=== PATIENT | female | born 1955 | race Caucasian/White ===

== ENCOUNTER → 2021-01-21 | Outpatient (CLI) | payer MEDICARE, BC ==
--- NOTE | 2021-01-21 10:20 | XR ---
EXAMINATION TYPE: XR knee complete RT DATE OF EXAM: 01/21/2021 CLINICAL HISTORY: Right knee pain TECHNIQUE: Three views of the right knee are obtained. COMPARISON: None. FINDINGS: There is no acute fracture/dislocation evident in right knee. There is osteophytosis of t he patellofemoral compartment. There is diffuse, qualitative osteopenia. IMPRESSION: There is no acute fracture or dislocation in the right knee. There is osteophytosis of the patellofemoral compartment. There is diffuse, qualitative osteopenia.
== END | disposition home or self-care (01) ==
LOC: RADXRYALE 09:54
PROVIDERS: ATTEND Family Medicine
DX: M85.861 Other specified disorders of bone density and structure, right lower leg (principal)

== ENCOUNTER 2021-02-28 14:12 | Inpatient (IN) | payer MEDICARE, BC ==
[2021-02-28 16:56] LABS: Anisocytosis Slight; Basophils % (A) 1 %; Eosinophils # (A) 0.1 k/uL (0-0.7); Eosinophils % (A) 1 %; HCT 27.6 % (34.0-46.0); HGB 8.5 gm/dL (11.4-16.0); Hypochromasia Moderate; Lymphocytes # (A) 0.8 k/uL (1.0-4.8); Lymphocytes % (A) 11 %; MCH 31.1 pg (25.0-35.0); MCHC 30.9 g/dL (31.0-37.0); MCV 100.7 fL (80.0-100.0); Macrocytosis Slight; Mean Platelet Volume 8.6; Monocytes # (A) 0.3 k/uL (0-1.0); Monocytes % (A) 4 %; Neutrophils # (A) 5.4 k/uL (1.3-7.7); Neutrophils % (A) 81 %; Platelet Count 174 k/uL (150-450); RBC 2.74 m/uL (3.80-5.40); RDW 16.2 % (11.5-15.5); WBC 6.7 k/uL (3.8-10.6)
[2021-02-28 17:02] LABS: Appearance,Urine Cloudy (Clear); Bacteria,Urine Many /hpf; Bilirubin,Urine Negative (Negative); Blood,Urine Large (Negative); Color,Urine Light Yellow; Glucose,Urine (UA) Negative (Negative); Hyaline Casts,Urine 5 /lpf (0-2); Ketones,Urine 1+ (Negative); Leukocyte Esterase,Urine Large (Negative); Mucus,Urine Rare /hpf; Nitrite,Urine Positive (Negative); PH, Urine 5.5 (5.0-8.0); Protein,Urine 2+ (Negative); RBC,Urine 135 /hpf (0-5); Specific Gravity,Urine 1.012 (1.001-1.035); Urobilinogen,Urine <2.0 mg/dL (<2.0); WBC,Urine 158 /hpf (0-5)
[2021-02-28 17:07] LABS: Albumin 4.2 g/dL (3.5-5.0); Calcium 9.2 mg/dL (8.4-10.2); Potassium 5.8 mmol/L (3.5-5.1); Total Bilirubin 0.3 mg/dL (0.2-1.3); Total Protein 6.9 g/dL (6.3-8.2)
[2021-02-28] MEDS ORDERED: SODIUM CHLORIDE 0.9% 1,000 ML IV ONE (18:36)
[2021-02-28] MEDS ORDERED: NALOXONE 0.4 MG/ML 1 ML VIAL IV PRN (18:49)
[2021-02-28] MEDS ORDERED: DEXTROSE 50% SYRINGE 50 ML IVP STA (18:53)
[2021-02-28] MEDS ORDERED: CALCIUM GLUCONATE 1 GM in SODIUM CHLORIDE 0.9% 100 ML IVPB ONE (18:53)
[2021-02-28] MEDS ORDERED: INSULIN REGULAR 100 UNIT/ML VIAL (IV) IV ONE (18:53)
--- NOTE | 2021-02-28 18:56 | ED ---
General Adult HPI - General Chief complaint: Vaginal Bleeding Stated complaint: vaginal bleeding Time Seen by Provider: 02/28/21 17:30 Source: patient, RN notes reviewed, old records reviewed Mode of arrival: ambulatory Limitations: no limitations - History of Present Illness Initial comments: I evaluated the patient when she was placed in a room. Workup was started by triage nursing staff. Patient is a 65-year-old female with past medical history remarkable for diabetes, hypertension who presents emergency Department complaining of a 3 month history of abnormal uterine bleeding. She states that this has been ongoing for last 3 months. She states she noticed a slight uptake in the bleeding the last few days. She denies any lightheadedness, chest pain, shortness breath, dysuria, hematuria, abdominal pain, nausea, vomiting, diarrhea. She otherwise has no acute this time. Denies any fatigue or weakness. She presents in search of evaluation as well as a referral for an SENIOR NATIONAL ACCOUNT MANAGER follow-up for her dysfunction uterine bleeding, which she has not followed up with yet. She states she does have a history of some mildly worsening kidney function. She otherwise has no acute complaints at this time. She denies any history of uterine fibroids were abnormal uterine bleeding prior to the last 2 months. Patient denies any concern for STDs and denies any vaginal dischargeother than the abdomen bleeding. - Related Data Home Medications Medication Instructions Recorded Confirmed Allopurinol [Zyloprim] 100 mg PO DAILY 12/16/20 02/28/21 Ascorbic Acid [Vitamin C] 500 mg PO DAILY 12/16/20 02/28/21 Carvedilol [Coreg] 25 mg PO BID 12/16/20 02/28/21 Cholecalciferol [Vitamin D3 (25 75 mcg PO DAILY 12/16/20 02/28/21 Mcg = 1000 Iu)] Ferrous Sulfate [Iron (65 MG 325 mg PO TID 12/16/20 02/28/21 Elemental)] Furosemide [Lasix] 20 mg PO BID@0900,1600 12/16/20 02/28/21 Hyoscyamine Sulfate [Levsin] 0.125 mg PO TID 12/16/20 02/28/21 Losartan [Cozaar] 50 mg PO DAILY 12/16/20 02/28/21 Pantoprazole Sodium 40 mg PO DAILY 12/16/20 02/28/21 Simvastatin [Zocor] 20 mg PO HS 12/16/20 02/28/21 Spironolactone 25 mg PO DAILY 12/16/20 02/28/21 sitaGLIPtin [Januvia] 100 mg PO DAILY 12/16/20 02/28/21 Multivitamins, Thera [Multivitamin 1 tab PO DAILY 02/28/21 02/28/21 (formulary)] Pioglitazone [Actos] 45 mg PO DAILY 02/28/21 02/28/21 Repaglinide [Prandin] 2 mg PO TID 02/28/21 02/28/21 Allergies Allergy/AdvReac Type Severity Reaction Status Date / Time No Known Allergies Allergy Verified 02/28/21 18:33 Review of Systems ROS Statement: Those systems with pertinent positive or pertinent negative responses have been documented in the HPI. Review of Systems: CONST: Denies fever EYES: Denies blurry vision ENT: Denies nasal congestion C/V: Denies Chest pain RESP: Denies shortness of breath GI: Denies abdominal pain : Endorses vaginal bleeding. SKIN: Denies rash. MSK: Denies joint pain. NEURO: Denies headache ROS Other: All systems not noted in ROS Statement are negative. Past Medical History Past Medical History: Diabetes Mellitus, Hypertension History of Any Multi-Drug Resistant Organisms: None Reported Past Surgical History: No Surgical Hx Reported Past Anesthesia/Blood Transfusion Reactions: No Reported Reaction Past Psychological History: Anxiety, Depression Smoking Status: Never smoker Past Alcohol Use History: None Reported Past Drug Use History: None Reported General Exam - General Exam Comments Initial Comments: General: Appears in no acute distress. HEAD: Normal with no signs of head trauma. EYES: PERRLA, EOMI, conjunctiva normal, no discharge. ENT: Hearing grossly intact, normal oropharynx. RESPIRATORY: Clear breath sounds bilaterally. No wheezes, rales, or rhonchi. C/V: Regular rate and rhythm. S1 and S2 auscultated, no edema, peripheral pulses 2+ and intact throughout ABD: Abd is soft, nontender, nondistended EXT: Normal range of motion, no obvious deformity SKIN: No rashes or lesions observed on exposed skin. NEURO: Alert and oriented 4. No focal sensory strength deficits. Patient is able to ambulate without difficulty. Limitations: no limitations Course Vital Signs 02/28/21 02/28/21 16:13 20:37 Temperature 98.0 F Pulse Rate 69 66 Respiratory 18 18 Rate Blood Pressure 130/79 134/64 O2 Sat by Pulse 96 97 Oximetry Medical Decision Making - Medical Decision Making Based on the patient's presentation and physical exam, I'm concerned for her abnormal uterine bleeding at this time. Workup was started which consisted of abdominal laboratory studies by walk in triage. This is remarkable for a macrocytic anemia with a hemoglobin of 8.5, with a history of macrocytic anemia. This appears to be her hemoglobin level that she is seen in the past, particularly within the last year. Patient's electrolytes are abnormal. She has a mild decrease in bicarbonate 18 with 79. Patient has an AK eye on CK D with a creatinine of 2.45 and BUN of 80. Recent creatinine from a few months ago was 2.0. Patient is hyperkalemic. EKG was ordered and did not reveal any signs of acute ischemia or signs of hyperkalemia. Patient's glucose is 148. Urinalysis is remarkable and suspicious for acute urinary tract infection, with 158 WBCs, many bacteria, as well as positive nitrites and large amount of leukocyte esterase. I did discuss the results of her laboratory studies with the patient. I explained that I did not believe she is having an excessive amount of bleeding as her hemoglobin does appear to be baseline for her without any signs or symptoms of anemia at this time. I'm concerned about her renal function as well as her urinary tract infection. Her hyperkalemia, while high, is likely related to her AK I and she has no EKG changes. She will be given insulin and D50 here in the department. She is not requiring calcium at this time as there is no EKG changes. For the patient's UTI, she will be given Rocephin daily. She'll be given a 1 L fluid bolus in addition to being started on a normal saline drip. Patient was in agreement this plan. I discussed with the patient that her vaginal bleeding can be better evaluated with ultrasound. She did consent to obtain ultrasound. Results were not back by attending the patient was admitted to the hospital. I did discuss with the patient I would like her admitted to the hospital. She was in agreement this plan. I spoke with the admitting physician Leena GREY, who accepted the patient. I did consult SENIOR NATIONAL ACCOUNT MANAGER as well to evaluate in the morning. Patient was therefore admitted in serious condition. Reevaluation the chart after the patient was admitted, the results of the ultrasound returned and were remarkable for essential increased echogenicity of the uterus with a dilated endometrial cavity with solid material. Computed tomography scan or MRI would be helpful. Ovaries were not seen and there is no adnexal mass. CT abdomen and pelvis without contrast was placed by myself, and results can be followed up by the admitting team. - Lab Data Result diagrams: 02/28/21 16:49 02/28/21 16:49 Lab Results 02/28/21 02/28/21 02/28/21 Range/Units 16:40 16:46 16:49 WBC 6.7 (3.8-10.6) k/uL RBC 2.74 L (3.80-5.40) m/uL Hgb 8.5 L (11.4-16.0) gm/dL Hct 27.6 L (34.0-46.0) % MCV 100.7 H (80.0-100.0) fL MCH 31.1 (25.0-35.0) pg MCHC 30.9 L (31.0-37.0) g/dL RDW 16.2 H (11.5-15.5) % Plt Count 174 (150-450) k/uL MPV 8.6 Neutrophils % 81 % Lymphocytes % 11 % Monocytes % 4 % Eosinophils % 1 % Basophils % 1 % Neutrophils # 5.4 (1.3-7.7) k/uL Lymphocytes # 0.8 L (1.0-4.8) k/uL Monocytes # 0.3 (0-1.0) k/uL Eosinophils # 0.1 (0-0.7) k/uL Basophils # 0.0 (0-0.2) k/uL Hypochromasia Moderate Anisocytosis Slight Macrocytosis Slight Sodium (137-145) mmol/L Potassium (3.5-5.1) mmol/L Chloride (98-107) mmol/L Carbon Dioxide (22-30) mmol/L Anion Gap mmol/L BUN (7-17) mg/dL Creatinine (0.52-1.04) mg/dL Est GFR (CKD-EPI)AfAm (>60 ml/min/1.73 sqM) Est GFR (CKD-EPI)NonAf (>60 ml/min/1.73 sqM) Glucose (74-99) mg/dL Calcium (8.4-10.2) mg/dL Total Bilirubin (0.2-1.3) mg/dL AST (14-36) U/L ALT (4-34) U/L Alkaline Phosphatase (38-126) U/L Total Protein (6.3-8.2) g/dL Albumin (3.5-5.0) g/dL Urine Color Urine Appearance (Clear) Urine pH (5.0-8.0) Ur Specific [place] (1.001-1.035) Urine Protein (Negative) Urine Glucose (UA) (Negative) Urine Ketones (Negative) Urine Blood (Negative) Urine Nitrite (Negative) Urine Bilirubin (Negative) Urine Urobilinogen (<2.0) mg/dL Ur Leukocyte Esterase (Negative) Urine RBC (0-5) /hpf Urine WBC (0-5) /hpf Urine WBC Clumps (None) /hpf Urine Bacteria (None) /hpf Hyaline Casts (0-2) /lpf Urine Mucus (None) /hpf Blood Type A Positive Blood Type Confirm A Positive Blood Type Recheck No Previous Record Bld Type Recheck Status CABO Indicated Antibody Screen NEGATIVE Spec Expiration Date 03/03/2021 - 234502/28/21 02/28/21 Range/Units 16:49 16:49 WBC (3.8-10.6) k/uL RBC (3.80-5.40) m/uL Hgb (11.4-16.0) gm/dL Hct (34.0-46.0) % MCV (80.0-100.0) fL MCH (25.0-35.0) pg MCHC (31.0-37.0) g/dL RDW (11.5-15.5) % Plt Count (150-450) k/uL MPV Neutrophils % % Lymphocytes % % Monocytes % % Eosinophils % % Basophils % % Neutrophils # (1.3-7.7) k/uL Lymphocytes # (1.0-4.8) k/uL Monocytes # (0-1.0) k/uL Eosinophils # (0-0.7) k/uL Basophils # (0-0.2) k/uL Hypochromasia Anisocytosis Macrocytosis Sodium 137 (137-145) mmol/L Potassium 5.8 H (3.5-5.1) mmol/L Chloride 106 (98-107) mmol/L Carbon Dioxide 18 L (22-30) mmol/L Anion Gap 13 mmol/L BUN 80 H (7-17) mg/dL Creatinine 2.45 H (0.52-1.04) mg/dL Est GFR (CKD-EPI)AfAm 23 (>60 ml/min/1.73 sqM) Est GFR (CKD-EPI)NonAf 20 (>60 ml/min/1.73 sqM) Glucose 148 H (74-99) mg/dL Calcium 9.2 (8.4-10.2) mg/dL Total Bilirubin 0.3 (0.2-1.3) mg/dL AST 23 (14-36) U/L ALT 16 (4-34) U/L Alkaline Phosphatase 121 (38-126) U/L Total Protein 6.9 (6.3-8.2) g/dL Albumin 4.2 (3.5-5.0) g/dL Urine Color Light Yellow Urine Appearance Cloudy H (Clear) Urine pH 5.5 (5.0-8.0) Ur Specific [place] 1.012 (1.001-1.035) Urine Protein 2+ H (Negative) Urine Glucose (UA) Negative (Negative) Urine Ketones 1+ H (Negative) Urine Blood Large H (Negative) Urine Nitrite Positive H (Negative) Urine Bilirubin Negative (Negative) Urine Urobilinogen <2.0 (<2.0) mg/dL Ur Leukocyte Esterase Large H (Negative) Urine RBC 135 H (0-5) /hpf Urine WBC 158 H (0-5) /hpf Urine WBC Clumps Moderate H (None) /hpf Urine Bacteria Many H (None) /hpf Hyaline Casts 5 H (0-2) /lpf Urine Mucus Rare H (None) /hpf Blood Type Blood Type Confirm Blood Type Recheck Bld Type Recheck Status Antibody Screen Spec Expiration Date - EKG Data -: EKG Interpreted by Me EKG Comments: 12-lead Electrocardiogram Interpretation Note EKG was reviewed and interpreted by myself. 12-lead ECG performed at 1850 is interpreted by me as revealing normal sinus rhythm at a rate of 71 beats per minute. [place] is normal. NH interval is 174 ms, QRS duration is 82 ms, QTc is 469 ms.. There were no ST or T wave abnormalities to suggest myocardial ischemia or injury. R wave progression across the precordium was satisfactory. By my interpretation this EKG is non-diagnostic for acute ischemia. There are no signs of hyperkalemia as the T waves do not appear peaked and the intervals appear within normal limits. Disposition Clinical Impression: Dysfunctional uterine bleeding, Chronic anemia, Hyperkalemia, CYNDEE (acute kidney injury), Macrocytic anemia, History of diabetes mellitus, UTI (urinary tract infection) Disposition: ADMITTED IP TO THIS HOSP Condition: Serious
[2021-02-28] MEDS ORDERED: cefTRIAXone IN SWFI 1,000 MG/10 ML SYRINGE IVP SCH (19:15)
[2021-02-28 19:33] LABS: Prothrombin Time 10.8 sec (9.0-12.0)
[2021-02-28] MEDS: SODIUM CHLORIDE 0.9% 1,000 ML IV SCH (19:33)
--- NOTE | 2021-02-28 19:58 | US ---
EXAMINATION TYPE: US transvaginal DATE OF EXAM: 02/28/2021 COMPARISON: NONE CLINICAL HISTORY: abnormal uterine bleeding. Limited exam TECHNIQUE: . Transabdominal sonographic images of the pelvis were acquired. Transvaginal sonographi c images were medically necessary to better assess the following anatomy: Uterus Date of LMP: Age 48-50ish EXAM MEASUREMENTS: Uterus: 9.4 x 4.9 x 7.0 Endometrial Stripe: Unable to distinguish with certainty Right Ovary: Not visualized Left Ovary: Not visualized 1. Uterus: Anteverted Diffusely heterogeneous 2. Endometrium: Unable to distinguish with certainty 3. Right Ovary: Not visualized 4. Left Ovary: Not visualized 5. Bilateral Adnexa: wnl as visualized 6. Posterior cul-de-sac: wnl IMPRESSION: There is central increased echogenicity in the uterus that could relate to a markedly dilated endomet rial cavity with solid material. Follow-up is recommended. CT scan or MR scan would BE helpful for fu rther evaluation if clinically indicated. Ovaries not seen. No adnexal mass.
[2021-02-28] MEDS: ATORVASTATIN 10 MG TAB PO SCH (21:38)
[2021-02-28] MEDS: carvediloL 12.5 MG TAB PO SCH (21:38)
[2021-02-28] MEDS: FERROUS SULFATE 325 MG TAB PO SCH (21:38)
[2021-02-28] MEDS: REPAGLINIDE 1 MG TAB PO SCH (22:11)
--- NOTE | 2021-02-28 22:26 | CT ---
EXAMINATION TYPE: CT abdomen pelvis wo con DATE OF EXAM: 02/28/2021 COMPARISON: None HISTORY: Gross hematuria. CT DLP: 1202.7 mGycm Automated exposure control for dose reduction was used. Images obtained from the diaphragm to the floor the pelvis with no contrast. There is some mild atelectasis left lung base. There are small bilateral pleural effusions. Heart is enlarged. There is a small pericardial effusion. Liver spleen stomach appear intact. The bile ducts are not dilated. There is no pancreatic mass. Gall bladder appears normal. There is no adrenal mass. Kidneys have normal size. There is no hydronephrosis. The ureters are not d ilated. There is no retroperitoneal adenopathy. Bladder distends smoothly. There is some air in the b ladder consistent with catheterization. There is no inguinal hernia. I see no pelvic mass. Uterus is anteverted. There is subcutaneous edema around the abdomen. There is some mild mesenteric fat strandi ng in the abdomen. There is stranding in the paracolic gutters. Lumbar vertebra appear intact. There is no compression fracture. There is mild disc space narrowing. The bony pelvis is intact. The hip joints are intact. There is some calcifications in the right later al abdomen in uncertain location. Appendix not clearly seen. Appendicolith not excluded. IMPRESSION: Subcutaneous edema around the abdomen. There is abdominal mesenteric edema and fat stranding. No evid ence of a renal mass or obstruction. Ureters are not dilated. Exam limited by lack of contrast. No si gn of a ureteral calculus. No evidence of a bladder mass. Cardiomegaly with pleural effusions and pericardial effusion. Fluid seen in the abdomen could relate to some chronic congestive heart failure. Calcifications in the lateral right abdomen. Appendicolith not excluded. Appendix not clearly seen.
[2021-03-01 06:21] LABS: Basophils % (A) 1 %; Eosinophils # (A) 0.1 k/uL (0-0.7); Eosinophils % (A) 2 %; HCT 24.9 % (34.0-46.0); HGB 7.6 gm/dL (11.4-16.0); Hypochromasia Moderate; Lymphocytes # (A) 0.7 k/uL (1.0-4.8); Lymphocytes % (A) 14 %; MCH 31.3 pg (25.0-35.0); MCHC 30.7 g/dL (31.0-37.0); MCV 102.1 fL (80.0-100.0); Macrocytosis Slight; Mean Platelet Volume 8.7; Monocytes # (A) 0.3 k/uL (0-1.0); Monocytes % (A) 7 %; Neutrophils # (A) 3.6 k/uL (1.3-7.7); Neutrophils % (A) 74 %; Platelet Count 148 k/uL (150-450); RBC 2.44 m/uL (3.80-5.40); WBC 4.9 k/uL (3.8-10.6)
[2021-03-01] MEDS: REPAGLINIDE 1 MG TAB PO SCH ×3 (08:17→21:26)
[2021-03-01] MEDS: FUROSEMIDE 20 MG TAB PO SCH ×2 (08:17→15:19)
[2021-03-01] MEDS: FERROUS SULFATE 325 MG TAB PO SCH ×3 (08:17→21:25)
[2021-03-01] MEDS: carvediloL 12.5 MG TAB PO SCH ×2 (08:17→21:25)
[2021-03-01] MEDS: LOSARTAN 50 MG TAB PO SCH (08:17)
[2021-03-01] MEDS: SPIRONOLACTONE 25 MG TAB PO SCH (08:17)
[2021-03-01] MEDS: PIOGLITAZONE 45 MG TAB PO SCH (08:17)
[2021-03-01] MEDS: LINAGLIPTIN 5 MG TABLET PO SCH (08:17)
[2021-03-01] MEDS: SODIUM CHLORIDE 0.9% 1,000 ML IV SCH ×2 (08:18→16:07)
[2021-03-01] MEDS: PANTOPRAZOLE 40 MG TABLET PO SCH (08:18)
[2021-03-01 11:53] LABS: Glucose,Whole Blood 154 mg/dL (75-99)
[2021-03-01 12:05] LABS: BUN/Creat Ratio 32.61 Ratio (12.00-20.00); Calcium 8.3 mg/dL (8.7-10.3); Magnesium 2.6 mg/dL (1.5-2.4); Non-African American GFR(CKD) 21.6 (60.0-200.0); Potassium 5.1 mmol/L (3.5-5.5)
--- NOTE | 2021-03-01 12:27 | HP ---
HISTORY AND PHYSICAL DATE OF SERVICE: 03/01/2021 CHIEF COMPLAINT: Renal failure and vaginal bleeding. HISTORY OF PRESENT ILLNESS: This 65-year-old woman with a past medical history pf multiple medical problems including diabetes, hypertension, history of renal disease previously, being followed by Dr. Lawrence in the outpatient setting was complaining of three months of ongoing on and off vaginal bleeding. Patient thought the patient was going through menopause. The patient also had some oozing also. The patient also complaining of severe lower abdominal discomfort and the patient came to [facility] and was found to have renal failure with creatinine of 2.45. The previous creatinine was around 2 a few months ago. UA is was abnormal. Hemoglobin is found to be 7.6. The patient admitted for further evaluation and treatment. The patient also had a transvaginal ultrasound in the ER which showed abnormal uterus. A CT scan of the abdomen and pelvis showed some subcutaneous edema. Cardiomegaly with pleural effusion was also noted. There is no history of fever, rigors, chills at this time. PAST MEDICAL HISTORY: History of diabetes, hypertension, history of anxiety, depression. MEDICATIONS ARE: Januvia, Aldactone, Zocor, Prandin, Actos, multivitamins, Cozaar, Levsin, Lasix, Ancef, vitamin D, Coreg, vitamin C zyloprim. ALLERGIES: None. FAMILY HISTORY: No history of heart attacks or strokes in the family. SOCIAL HISTORY: No history of smoking. No history of alcohol intake. REVIEW OF SYSTEMS: ENT No history of diminished hearing or vision. CARDIOVASCULAR As mentioned earlier. RESPIRATORY As mentioned earlier. GI No nausea, vomiting, or diarrhea. As mentioned earlier. NERVOUS No numbness or weakness. ALLERGY/IMMUNOLOGY No asthma or hayfever. MUSCULOSKELETAL As mentioned earlier. HEMATOLOGY/ONCOLOGY Negative. ENDOCRINE No history of diabetes or hypothyroidism. CONSTITUTIONAL As mentioned earlier. DERMATOLOGY Negative. RHEUMATOLOGY Negative, PSYCHIATRY As mentioned earlier. PHYSICAL EXAMINATION: Alert and oriented x2. Pulse 97, blood pressure 157/82, respiration 14, temperature 98 degrees, pulse ox 98% on room air. HEENT: Conjunctivae normal. Oral mucosa moist. NECK: No jugular venous distention. No lymph node enlargement. CARDIOVASCULAR: S1, S2, muffled. No S3, no S4, RESPIRATORY: Diminished breath sounds at the bases. A few scattered rhonchi. ABDOMEN: Soft, obese, nontender. LEGS: Bilateral leg edema. NERVOUS SYSTEM: Higher functions mentioned earlier. Moves all four limbs. No focal motor or sensory deficits. LYMPHATICS: No lymph node in neck or axilla. SKIN: No rash. JOINTS: No active deforming arthropathy. LABS: At this time shows WBC 4.2, hemoglobin 7.6, MCV 102, sodium 137, potassium 5.8, creatinine is 2.45. UA noted. ASSESSMENT: 1. Acute renal failure, possibly acute tubular necrosis and prerenal renal failure. 2. Possible underlying chronic kidney disease stage 2. 3. Hyperkalemia. 4. Vaginal bleeding for evaluation. 5. Acute blood loss anemia secondary from vaginal bleeding. 6. Increased MCV. 7. Rule out congestive heart failure. 8. Anasarca. 9. Rule out pleural and pericardial effusions. 10.Obesity with body mass index of 37.6. 11.Diabetes mellitus type 2. 12.Hypertension. 13.History of anxiety, depression. 14.FULL CODE. RECOMMENDATIONS: In this 65-year-old woman who presented with multiple complex medical issues, we will monitor the patient closely, continue the current symptomatic treatment, MOBILE NURSE evaluation has been sought. I would also recommend nephrology evaluation. Cultures will be obtained to rule out the possibility of any evidence of bladder infection. Otherwise, I would also recommend a chest x-ray and cardiac workup also to rule out the possibility of any primary cardiac pathology. Overall prognosis guarded because of multiple complex medical issues. Further recommendations to follow. MMODL / IJN: [id number] /
[2021-03-01] MEDS: INSULIN ASPART (NovoLOG) 100 UNIT/ML VIAL SQ SCH ×3 (12:28→21:25)
--- NOTE | 2021-03-01 12:28 | XR ---
EXAMINATION TYPE: XR chest 1V portable DATE OF EXAM: 03/01/2021 COMPARISON: None INDICATION: CHF TECHNIQUE: Single frontal view of the chest is obtained. FINDINGS: The heart size is enlarged. The pulmonary vasculature is normal. The lungs are clear. IMPRESSION: 1. Cardiomegaly
[2021-03-01] MEDS: HYOSCYAMINE SULFATE 0.125 MG TAB PO SCH ×2 (15:19→21:26)
--- NOTE | 2021-03-01 16:15 | ECHOF ---
Referral Reason:chf MEASUREMENTS -------- HEIGHT: 170.2 cm WEIGHT: 108.9 kg BP: 151/71 IVSd: 1.5 cm (0.6 - 1.1) LVIDd: 5.0 cm (3.9 - 5.3) LVPWd: 1.6 cm (0.6 - 1.1) EDV(Teich): 121 ml IVSs: 1.9 cm LVIDs: 3.2 cm LVPWs: 1.8 cm %IVS Thck: 27 % ESV(Teich): 42 ml EF(Teich): 65 % %FS: 36 % SV(Teich): 79 ml LA Diam: 4.3 cm (2.7 - 3.8) RVIDd: 3.6 cm (< 3.3) IVC: 26.34 mm LALs A4C: 6.2 cm LAAs A4C: 26.1 cm LAESV A-L A4C: 94 ml LAESV MOD A4C: 87 ml LALs A2C: 6.6 cm LAAs A2C: 22.3 cm LAESV A-L A2C: 65 ml LAESV MOD A2C: 61 ml LAESV(A-L): 80 ml LAESV Index (A-L): 36.56 ml/m Ao Diam: 3.5 cm (2.0 - 3.7) AV Cusp: 2.4 cm (1.5 - 2.6) EPSS: 0.4 cm MV E Bj: 1.62 m/s MV DecT: 225 ms MV Dec Rogers: 7.2 m/s MV A Bj: 1.07 m/s MV E/A Ratio: 1.51 MV PHT: 65 ms AV Vmax: 1.85 m/s AV maxP.64 mmHg AR Vmax: 3.28 m/s AR maxP.95 mmHg AR PHT: 472 ms AR Dec Time: 1629 ms AR Dec Rogers: 2.0 m/s TR Vmax: 3.46 m/s TR maxP.01 mmHg RAP: 15.00 mmHg RVSP: 63.01 mmHg MV EF SLOPE: 95.74 mm/s (70 - 150) MV EXCURSION: 26.03 mm (> 18.000) FINDINGS -------- Sinus rhythm. This was a technically good study. The left ventricular size is normal. There is moderate concentric left ventricular hypertrophy. O verall left ventricular systolic function is normal with, an EF between 60 - 65 %. The right ventricle is mildly enlarged. LA is moderately dilated 34-39 ml/m2 The right atrium is normal in size. Interatrial and interventricular septum intact. There is mild aortic regurgitation. Mild mitral regurgitation is present. Mild tricuspid regurgitation present. There is severe pulmonary hypertension. The right ventricul ar systolic pressure, as measured by Doppler, is 63.01mmHg. Trace/mild (physiologic) pulmonic regurgitation. The aortic root size is normal. The inferior vena cava is dilated with no significant inspiratory collapse which is consistent estima keri right atrial pressure of >15 mmHg. There is a mild to moderate, generalized pericardial effusion present. CONCLUSIONS -------- 1. The left ventricular size is normal. 2. There is moderate concentric left ventricular hypertrophy. 3. Overall left ventricular systolic function is normal with, an EF between 60 - 65 %. 4. The right ventricle is mildly enlarged. 5. LA is moderately dilated 34-39 ml/m2 6. There is mild aortic regurgitation. 7. Mild mitral regurgitation is present. 8. Mild tricuspid regurgitation present. 9. There is severe pulmonary hypertension. 10. The right ventricular systolic pressure, as measured by Doppler, is 63.01mmHg. 11. Trace/mild (physiologic) pulmonic regurgitation. 12. The inferior vena cava is dilated with no significant inspiratory collapse which is consistent es timated right atrial pressure of >15 mmHg. 13. There is a mild to moderate, generalized pericardial effusion present. [employer]: Ruthann Hutchinson RDCS
[2021-03-01 16:57] LABS: Glucose,Whole Blood 228 mg/dL (75-99)
[2021-03-01 20:49] LABS: Glucose,Whole Blood 184 mg/dL (75-99)
[2021-03-01] MEDS: ATORVASTATIN 10 MG TAB PO SCH (21:25)
[2021-03-02 06:06] LABS: Anisocytosis Slight; Basophils % (A) 1 %; Eosinophils # (A) 0.2 k/uL (0-0.7); Eosinophils % (A) 4 %; HCT 23.1 % (34.0-46.0); HGB 7.2 gm/dL (11.4-16.0); Hypochromasia Moderate; Lymphocytes % (A) 23 %; MCH 31.4 pg (25.0-35.0); MCV 101.3 fL (80.0-100.0); Macrocytosis Moderate; Mean Platelet Volume 8.5; Monocytes # (A) 0.3 k/uL (0-1.0); Monocytes % (A) 6 %; Neutrophils % (A) 65 %; Platelet Count 156 k/uL (150-450); RBC 2.28 m/uL (3.80-5.40); RDW 17.4 % (11.5-15.5); WBC 4.6 k/uL (3.8-10.6)
[2021-03-02] MEDS: SODIUM CHLORIDE 0.9% 1,000 ML IV SCH (06:24)
[2021-03-02 06:57] LABS: Glucose,Whole Blood 163 mg/dL (75-99)
[2021-03-02] MEDS: INSULIN ASPART (NovoLOG) 100 UNIT/ML VIAL SQ SCH ×4 (08:31→21:13)
[2021-03-02] MEDS: ASCORBIC ACID 500 MG TAB PO SCH (08:32)
[2021-03-02] MEDS: carvediloL 12.5 MG TAB PO SCH ×2 (08:32→21:12)
[2021-03-02] MEDS: CHOLECALCIFEROL 25 MCG (1000 IU) TABLET PO SCH (08:32)
[2021-03-02] MEDS: PANTOPRAZOLE 40 MG TABLET PO SCH (08:32)
[2021-03-02] MEDS: allopurinoL 100 MG TAB PO SCH (08:32)
[2021-03-02] MEDS: HYOSCYAMINE SULFATE 0.125 MG TAB PO SCH ×3 (08:33→21:13)
[2021-03-02] MEDS: FUROSEMIDE 20 MG TAB PO SCH ×2 (08:33→16:58)
[2021-03-02] MEDS: FERROUS SULFATE 325 MG TAB PO SCH ×3 (08:33→21:12)
[2021-03-02] MEDS: LOSARTAN 50 MG TAB PO SCH (08:33)
[2021-03-02] MEDS: LINAGLIPTIN 5 MG TABLET PO SCH (08:33)
[2021-03-02] MEDS: SPIRONOLACTONE 25 MG TAB PO SCH (08:34)
[2021-03-02] MEDS: PIOGLITAZONE 45 MG TAB PO SCH (08:34)
[2021-03-02] MEDS: REPAGLINIDE 1 MG TAB PO SCH ×3 (08:34→21:13)
[2021-03-02] MEDS: MULTIVITAMINS, THERA 1 EACH TAB PO SCH (08:36)
[2021-03-02 11:16] LABS: African American GFR (CKD) 23.8 (60.0-200.0); Anion Gap 4.7 mmol/L (4.00-12.00); BUN/Creat Ratio 29.17 Ratio (12.00-20.00); Carbon Dioxide 21.3 mmol/L (21.6-31.8); Non-African American GFR(CKD) 20.5 (60.0-200.0); Potassium 4.8 mmol/L (3.5-5.5)
--- NOTE | 2021-03-02 12:20 | P.OBCN ---
History of Present Illness Consult date: 03/02/21 Reason for consult: other (Post-menopausal bleeding) History of present illness: The patient is a 65-year-old 0 para 0 who presented to the hospital after a roughly 4 month or longer history of increasing vaginal bleeding. She reports the bleeding has ranged from spotting which is what she has today to heavier bleeding with passage of clots. She has not had evaluation for this to this point and has not had gynecologic care in perhaps at least 10-15 years which was previously carried out through her primary care doctor. She gives a history of irregular bleeding throughout her menstrual life and cannot specifically identify time at which menopause might have occurred. Ultrasound here in the hospital of failed to clearly identify a endometrial stripe or delineate any particular abnormalities. Computed tomography scan of the demonstrated essentially normal findings of as regards the uterus and adnexa. The patient has been found to be anemic while here in the hospital but, of greater interest, was an acute increase in signs and symptoms of renal failure. She additionally has some ongoing cardiac concerns and is hyperkalemic. Obstetrical history: 0 para 0 Gynecologic history: Reportedly unremarkable though history is as listed in history of present illness with a long-standing history of irregular spotting and bleeding for most of her menstrual life. She reports that the last time she may have had a Pap smear could have been as long as 10 or 15 years ago with her primary care doctor. Review of Systems Review of systems is confined to history of present illness. Past Medical History Past Medical History: Diabetes Mellitus, Hypertension History of Any Multi-Drug Resistant Organisms: None Reported Past Surgical History: No Surgical Hx Reported Past Anesthesia/Blood Transfusion Reactions: No Reported Reaction Past Psychological History: Anxiety, Depression Smoking Status: Never smoker Past Alcohol Use History: None Reported Past Drug Use History: None Reported Medications and Allergies Home Medications Medication Instructions Recorded Confirmed Type Allopurinol [Zyloprim] 100 mg PO DAILY 12/16/20 02/28/21 History Ascorbic Acid [Vitamin C] 500 mg PO DAILY 12/16/20 02/28/21 History Carvedilol [Coreg] 25 mg PO BID 12/16/20 02/28/21 History Cholecalciferol [Vitamin D3 (25 75 mcg PO DAILY 12/16/20 02/28/21 History Mcg = 1000 Iu)] Ferrous Sulfate [Iron (65 MG 325 mg PO TID 12/16/20 02/28/21 History Elemental)] Furosemide [Lasix] 20 mg PO BID@0900,1600 12/16/20 02/28/21 History Hyoscyamine Sulfate [Levsin] 0.125 mg PO TID 12/16/20 02/28/21 History Losartan [Cozaar] 50 mg PO DAILY 12/16/20 02/28/21 History Pantoprazole Sodium 40 mg PO DAILY 12/16/20 02/28/21 History Simvastatin [Zocor] 20 mg PO HS 12/16/20 02/28/21 History Spironolactone 25 mg PO DAILY 12/16/20 02/28/21 History sitaGLIPtin [Januvia] 100 mg PO DAILY 12/16/20 02/28/21 History Multivitamins, Thera [Multivitamin 1 tab PO DAILY 02/28/21 02/28/21 History (formulary)] Pioglitazone [Actos] 45 mg PO DAILY 02/28/21 02/28/21 History Repaglinide [Prandin] 2 mg PO TID 02/28/21 02/28/21 History Allergies Allergy/AdvReac Type Severity Reaction Status Date / Time No Known Allergies Allergy Verified 02/28/21 18:33 Exam Vital Signs Temp Pulse Pulse Resp BP BP Pulse Ox 03/02/21 11:49 97.7 F 61 20 148/71 97 03/02/21 10:17 60 12 03/02/21 09:02 98.3 F 60 12 132/69 03/02/21 04:45 98.3 F 56 L 20 132/64 97 03/01/21 20:00 20 03/01/21 19:45 98.5 F 60 20 130/73 96 03/01/21 12:35 62 14 03/01/21 12:22 98 F 66 16 151/71 94 L Intake and Output 03/01/21 03/02/21 03/02/21 22:59 06:59 14:59 Intake Total 150 100 Balance 150 100 Intake: Intake, IV Titration 50 Amount cefTRIAXone 1 gm In 50 Sodium Chloride 0.9% 50 ml @ 100 mls/hr IVPB DAILY [facility] Rx#:[id number] Oral 100 100 Other: Voiding Method Toilet Toilet # Voids 3 2 In general, this is a moderately obese white female in no acute distress. Her heart has a regular rhythm and rate without murmur. Her lungs are clear to auscultation bilaterally in all knight. Her abdomen is moderately obese, nondistended, soft, nontender, and without any palpable masses. Her extremities without any cyanosis or clubbing though there is some bilateral lower extremity edema present. Bimanual pelvic examination demonstrates normal external genitalia and BUS with normal vaginal mucosa and cervix to palpation. There is no cervical motion tenderness and the cervix feels normal. The uterus feels to be approximately 4-5 weeks in size, midplane, mobile, nontender, and normal in shape of the exam is moderately limited secondary to the patient's habitus and the organs being found high in the pelvis. The adnexa are nonpalpable and nontender without any apparent masses bilaterally. There is only a small amount of blood on my vaginal examination glove. Results Result Diagrams: 03/02/21 05:23 03/02/21 05:23 Abnormal Lab Results - Last 24 Hours (Table) 03/01/21 03/01/21 03/02/21 Range/Units 16:56 20:39 05:23 RBC 2.28 L (3.80-5.40) m/uL Hgb 7.2 L (11.4-16.0) gm/dL Hct 23.1 L (34.0-46.0) % MCV 101.3 H (80.0-100.0) fL RDW 17.4 H (11.5-15.5) % Chloride (96-109) mmol/L Carbon Dioxide (21.6-31.8) mmol/L BUN (9.0-27.0) mg/dL Creatinine (0.6-1.5) mg/dL Est GFR (CKD-EPI)AfAm (60.0-200.0) Est GFR (CKD-EPI)NonAf (60.0-200.0) BUN/Creatinine Ratio (12.00-20.00) Ratio Glucose (70-110) mg/dL POC Glucose (mg/dL) 228 H 184 H (75-99) mg/dL Calcium (8.7-10.3) mg/dL 03/02/21 03/02/21 Range/Units 05:23 06:52 RBC (3.80-5.40) m/uL Hgb (11.4-16.0) gm/dL Hct (34.0-46.0) % MCV (80.0-100.0) fL RDW (11.5-15.5) % Chloride 115 H (96-109) mmol/L Carbon Dioxide 21.3 L (21.6-31.8) mmol/L BUN 70.0 H (9.0-27.0) mg/dL Creatinine 2.4 H (0.6-1.5) mg/dL Est GFR (CKD-EPI)AfAm 23.8 L (60.0-200.0) Est GFR (CKD-EPI)NonAf 20.5 L (60.0-200.0) BUN/Creatinine Ratio 29.17 H (12.00-20.00) Ratio Glucose 141 H (70-110) mg/dL POC Glucose (mg/dL) 163 H (75-99) mg/dL Calcium 8.0 L (8.7-10.3) mg/dL Microbiology - Last 24 Hours (Table) 03/01/21 18:10 Urine Culture - Preliminary Urine,Voided Assessment and Plan (1) Postmenopausal bleeding Current Visit: Yes Status: Acute Code(s): N95.0 - POSTMENOPAUSAL BLEEDING SNOMED Code(s): 30953021 Plan: The patient gives a history of heavier bleeding in the past but is not currently having this concern. The evaluation of postmenopausal bleeding is much more amenable to evaluation in an office setting where an endometrial biopsy could be done or a repeat transvaginal pelvic ultrasound done in my office to evaluate the endometrial stripe. As she is not currently bleeding heavily and/or requiring transfusion, I would suggest that surgical approach with D&C is unwarranted at this time, especially given her ongoing other medical conditions. There is certainly a need to have endometrial sampling, especially given her history of long-standing irregular spotting with more recent heavier bleeding. The possibility of malignancy or premalignancy is certainly fairly high. I would recommend that she follow up in my office within the next week or 2 for endometrial biopsy in the office and further disposition to await the results of that biopsy. Thanks for the consultation and I will anticipate seeing her in the office but otherwise sign off here in the hospital unless the situation changes and she requires more acute gynecologic care.
[2021-03-02 12:23] LABS: Glucose,Whole Blood 229 mg/dL (75-99)
[2021-03-02] MEDS ORDERED: FUROSEMIDE 10 MG/ML 2 ML VIAL IV STA (16:11)
--- NOTE | 2021-03-02 16:56 | CT ---
EXAMINATION TYPE: CT chest wo con DATE OF EXAM: 03/02/2021 COMPARISON: None HISTORY: Pericardial effusion CT DLP: 535.30 mGycm Automated exposure control for dose reduction was used. Exam from the thoracic inlet to the diaphragm with no contrast. There are some minimal subsegmental atelectasis left lung base. There are small bilateral pleural eff usions. Heart is moderately enlarged. There is pericardial effusion with fluid measuring up to 1.6 cm in thickness. There are no hilar masses. There is no mediastinal adenopathy. There is some spurring in the thoracic spine. There is no compression fracture. There is no evidence of aortic aneurysm. There is some mild coronary artery calcification. IMPRESSION: Bilateral pleural effusions with pericardial effusion. No suspicious pulmonary mass. Moderate cardiom egaly.
[2021-03-02 17:08] LABS: Glucose,Whole Blood 134 mg/dL (75-99)
--- NOTE | 2021-03-02 17:49 | CONS ---
CONSULTATION REASON FOR CONSULT: Renal failure. HISTORY OF PRESENT ILLNESS: The patient is a 65-year-old female with history of chronic kidney disease, NKF stage 3B to 4 with baseline creatinine about 1.8-2 mg/dL. Etiology is nephrosclerosis and diabetic kidney disease. The patient was admitted to the hospital with complaints of weakness. She had some vaginal bleeding. She had some lower abdominal discomfort. An abdominal CT done in the ER showed no abnormalities in the uterus, however, patient is currently awaiting evaluation by ANGER CONTROL COUNSELOR. In the meantime, patient is maintained on IV fluids. She does have lower extremity edema and is normally maintained on diuretics at home along with angiotensin receptor blockers. Potassium was high at 5.8 on initial admission, currently staying at 4.8 to 5.1. The patient did admit to increased intake of potassium foods recently. Blood pressure is not low. The patient denies use of any nonsteroidal anti- inflammatory agents. PAST MEDICAL HISTORY: Hypertension, chronic kidney disease, type 2 diabetes. PAST SURGICAL HISTORY: None documented. MEDICATIONS: Medications prior to admission included zyloprim, vitamin C, Coreg, vitamin D, Lasix, Cozaar, pantoprazole, Januvia, spironolactone, Actos, Prandin. ALLERGIES: None. EXAMINATION: Patient is currently comfortable, awake, not in any acute distress. Alert, oriented x3. Blood pressure 148/71, heart rate 61 per minute. She is afebrile. Examination of the heart S1, S2. Examination of the lungs, bilateral breath sounds are heard. Abdomen is soft, nontender. Examination of lower extremities shows edema 2+ bilaterally. DOMAIN ARCHITECT exam grossly intact. LAB: Show sodium 141, potassium 4.8, chloride 115, CO2 is 21.3, BUN 70, creatinine 2.4, hemoglobin 7.2 g/dL. ASSESSMENT: 1. Acute kidney injury, possibly related to severe anemia. No significant hypotension noted. Patient is maintained on angiotensin receptor blockers, the dose of which will be decreased secondary to the hyperkalemia. Patient is also on Aldactone. Renal function not far from baseline. I will discontinue the IV fluids for now and continue with the loop diuretics. 2. Anemia associated with vaginal bleeding, possible component of anemia of chronic disease. Check iron profile and patient should also be maintained on Aranesp. 3. Hyperkalemia associated with acute kidney injury, use of angiotensin receptor blockers and Aldactone prior to admission, currently improved. The Cozaar dose has been decreased. 4. Vaginal bleeding, currently awaiting evaluation by the Gynecology. 5. Pyuria, maintained on antibiotics. Urine culture is currently pending. 6. Chronic kidney disease stage 3B to 4 with baseline creatinine 1.8 to 2 secondary to diabetic kidney disease and nephrosclerosis. The patient is scheduled for followup appointment next month in our office. PLAN: Discontinue IV fluids. Decrease Cozaar. Maintain low-potassium diet. Check iron profile. Add IV iron if needed and add Aranesp when iron replete. Followup as outpatient for CKD. Repeat labs in a.m. Thank you for this consultation. Will continue to follow the patient with you during her hospitalization. MMODL / IJN: [id number] /
--- NOTE | 2021-03-02 17:58 | PN ---
PROGRESS NOTE DATE OF SERVICE: 03/02/2021 This 65-year-old woman was admitted with acute renal failure possibly secondary dehydration. Also had underlying chronic kidney disease. The patient also had a 2D echo with Doppler today read by Cardiology which showed ejection fraction about 60-65% and severe pulmonary hypertension. Mild to moderate generalized pericardial effusion was also noted. The [employer] D[employer] CONSULTANT has also seen the patient, evaluated the patient for postmenopausal bleeding and recommended endometrial sampling as outpatient followup. The current hemoglobin is 7.2 and creatinine is also elevated up to 2.4. Most recent chest x-ray which was done yesterday and reviewed personally by me showed evidence of pericardial effusion. PAST MEDICAL HISTORY: Reviewed. REVIEW OF SYSTEMS: CARDIOVASCULAR As mentioned earlier. RESPIRATORY As mentioned earlier GI No nausea, vomiting, or diarrhea. As mentioned earlier. NERVOUS No numbness or weakness. CURRENT MEDICATIONS: Reviewed include Tylenol, zyloprim, vitamin C, Lipitor, Coreg, Rocephin, iron sulfate, Lasix, NovoLog, Tradjenta, Cozaar, Narcan, Protonix, Actos. Doses reviewed. PHYSICAL EXAMINATION: Alert and oriented x3. Pulse 61, blood pressure 140/87, respiration 20, temperature is 97.7, pulse ox 97% on room air. HEENT: Conjunctivae normal. Oral mucosa moist. NECK: No jugular venous distention. No lymph node enlargement. CARDIOVASCULAR: S1, S2, muffled. No S3, no S4, RESPIRATORY: Diminished breath sounds at the bases. A few scattered rhonchi and crackles. ABDOMEN: Soft, obese. LEGS: Bilateral leg edema. NERVOUS SYSTEM: Higher functions mentioned earlier. Moves all four limbs. No focal motor or sensory deficits. LYMPHATICS: No lymph node in neck or axilla. SKIN: No rash. JOINTS: No active deforming arthropathy. LABS: WBC 5.6, hemoglobin 7.2, sodium 141, potassium 4.8. ASSESSMENT: 1. Acute renal failure, possible acute tubular necrosis with prerenal renal failure. 2. Possible underlying chronic kidney disease, stage 2. 3. Mild to moderate generalized pericardial effusion. 4. Vaginal bleeding for evaluation, rule out malignancy. 5. Hyperkalemia. 6. Acute blood loss anemia secondary to vaginal bleeding. 7. Increased WBC. 8. Rule out congestive heart failure. 9. Anasarca. 10.Obesity with body mass index of 37.6. 11.Diabetes mellitus type 2. 12.Hypertension. 13.History of anxiety, depression. 14.FULL CODE. RECOMMENDATIONS AND DISCUSSION: Continue current medications, continue symptomatic treatment. Otherwise, at this time I would repeat labs, closely monitor, continue empiric antibiotics, follow the cultures. I would also recommend a D-dimer and if it is positive, a V/Q scan. Otherwise, I would also recommend a CT scan of the chest without any contrast to rule out any intraparenchymal lung pathology or significant pleural effusions. Prognosis extremely guarded because of multiple complex medical issues. Further recommendations to follow. MMODL / IJN: [id number] /
[2021-03-02 19:53] LABS: Glucose,Whole Blood 168 mg/dL (75-99)
[2021-03-02] MEDS: ATORVASTATIN 10 MG TAB PO SCH (21:12)
[2021-03-03] MEDS: ACETAMINOPHEN TAB 325 MG TAB PO PRN ×3 (00:30→23:35)
[2021-03-03 06:18] LABS: African American GFR (CKD) 24 (>60 ml/min/1.73 sqM); Anion Gap 7 mmol/L; Blood Urea Nitrogen 69 mg/dL (7-17); Calcium 8.4 mg/dL (8.4-10.2); Carbon Dioxide 20 mmol/L (22-30); Chloride 113 mmol/L (98-107); Glucose 141 mg/dL (74-99); Non-African American GFR(CKD) 21 (>60 ml/min/1.73 sqM); Potassium 5.2 mmol/L (3.5-5.1); Sodium 140 mmol/L (137-145)
[2021-03-03 06:21] LABS: Anisocytosis Slight; Basophils % (A) 1 %; Eosinophils # (A) 0.2 k/uL (0-0.7); Eosinophils % (A) 5 %; HCT 23.1 % (34.0-46.0); HGB 7.5 gm/dL (11.4-16.0); Hypochromasia Slight; Lymphocytes % (A) 22 %; MCH 32.1 pg (25.0-35.0); MCHC 32.4 g/dL (31.0-37.0); Macrocytosis Slight; Mean Platelet Volume 8.3; Monocytes # (A) 0.3 k/uL (0-1.0); Monocytes % (A) 6 %; Neutrophils # (A) 2.9 k/uL (1.3-7.7); Neutrophils % (A) 64 %; Platelet Count 162 k/uL (150-450); RBC 2.34 m/uL (3.80-5.40); RDW 16.9 % (11.5-15.5); WBC 4.6 k/uL (3.8-10.6)
[2021-03-03 07:16] LABS: Glucose,Whole Blood 141 mg/dL (75-99)
[2021-03-03] MEDS: INSULIN ASPART (NovoLOG) 100 UNIT/ML VIAL SQ SCH ×4 (08:39→21:31)
[2021-03-03] MEDS: MULTIVITAMINS, THERA 1 EACH TAB PO SCH (09:52)
[2021-03-03] MEDS: PIOGLITAZONE 45 MG TAB PO SCH (09:52)
[2021-03-03] MEDS: REPAGLINIDE 1 MG TAB PO SCH ×3 (09:52→21:31)
[2021-03-03] MEDS: CHOLECALCIFEROL 25 MCG (1000 IU) TABLET PO SCH (09:53)
[2021-03-03] MEDS: FERROUS SULFATE 325 MG TAB PO SCH ×3 (09:53→21:31)
[2021-03-03] MEDS: PANTOPRAZOLE 40 MG TABLET PO SCH (09:53)
[2021-03-03] MEDS: ASCORBIC ACID 500 MG TAB PO SCH (09:53)
[2021-03-03] MEDS: SPIRONOLACTONE 25 MG TAB PO SCH (09:53)
[2021-03-03] MEDS: allopurinoL 100 MG TAB PO SCH (09:53)
[2021-03-03] MEDS: FUROSEMIDE 20 MG TAB PO SCH (09:53)
[2021-03-03] MEDS: carvediloL 12.5 MG TAB PO SCH ×2 (09:53→21:31)
[2021-03-03] MEDS: HYOSCYAMINE SULFATE 0.125 MG TAB PO SCH ×3 (09:54→21:31)
[2021-03-03] MEDS: LINAGLIPTIN 5 MG TABLET PO SCH (09:54)
[2021-03-03] MEDS: LOSARTAN 25 MG TAB PO SCH (09:54)
[2021-03-03 12:13] LABS: Glucose,Whole Blood 176 mg/dL (75-99)
--- NOTE | 2021-03-03 12:55 | PN ---
PROGRESS NOTE Patient is seen for followup for acute kidney injury on top of chronic kidney disease. Patient is currently being diuresed. However, her chest x-ray showed evidence of pulmonary vascular congestion. An echocardiogram done yesterday shows mild to moderate pericardial effusion. The patient's diuretics will be switched to IV. Overall, she states she is feeling fairly well and denies any shortness of breath or chest pains. On examination today, blood pressure 149/63, heart rate 56 per minute. She is afebrile. EXAMINATION OF THE HEART: S1 and S2. EXAMINATION OF LUNGS: Bilateral breath sounds are heard. ABDOMEN: Soft, nontender. LOWER EXTREMITIES: Examination of lower extremities shows edema 2+ bilaterally. SWITCH BOX INSTALLER EXAM: Grossly intact. Labs show sodium 140, potassium 5.2, chloride 113. CO2 is 20, BUN 69, creatinine 2.35, hemoglobin 7.5 g/dL. ASSESSMENT: 1. Acute kidney injury, cardiorenal, currently stable, slightly improved. 2. Volume overload and lower extremity edema. Will switch Lasix to IV. Maintain salt and fluid restriction. 3. Hyperkalemia associated with chronic kidney disease, use of angiotensin receptor blockers, currently stable. Patient will be maintained on low-potassium diet. The dose of Cozaar was decreased. We can continue with the 25 mg daily for now, and hopefully with the increased dose of loop diuretics her potassium will be within acceptable range. 4. Type 2 diabetes. 5. Chronic kidney disease stage IIIB, secondary to diabetic kidney disease. Baseline creatinine 1.8 to 2 mg/dL. PLAN: Increase diuretics. Switch to IV Lasix and follow up on the iron profile. I will give her a dose of Aranesp today. MMODL / IJN: [id number] /
[2021-03-03] MEDS ORDERED: DARBEPOETIN ALFA 40 MCG/0.4 ML SYRINGE SQ SCH (13:00)
[2021-03-03] MEDS: FUROSEMIDE 10 MG/ML 4 ML VIAL IV SCH ×2 (13:24→21:33)
--- NOTE | 2021-03-03 14:17 | P.CRDCN ---
History of Present Illness History of present illness: This is a 65-year-old female with past medical history remarkable for type 2 diabetes, chronic kidney disease, hypertension. 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 We are consulted for pericardial effusion seen on echocardiogram. Patient presents to the emergency department complaining of a 3 month history of abnormal uterine bleeding. She states that she followed up with her primary c are doctor and labs were drawn her hemoglobin was low and her renal function was low and was told to go to the emergency department. On admission, hemoglobin was 8.5, Sodium 137, K 5.8, BUN 80, sCr 2.45, magnesium 2.6, troponin negative 1. Gynecology has evaluated the patient and recommended outpatient workup. Patient was found to be in acute kidney injury, hyperkalemia, and anemia. Nephrology was consulted. Patient initially started on IV fluids. Her Losartan was decreased to 25mg daily. Patient states she continues to have vaginal bleeding. She denies any chest pain, shortness of breath, lightheadedness, palpitations, dysuria, hematuria, abdominal pain, nausea, vomiting, diarrhea. Patient denies any history of PR, stroke, coronary disease, hypertension. Family history includes her father having PR in his 50s and . She states she has had stress tests in the past but were told these were normal. She states she initially starting having lower extremity edema 3 years ago, was put on medication in the past that improved her edema. DIAGNOSTICS EKG reveals sinus rhythm, heart rate 71, no significant ST-T wave abnormalities. No prior EKG to compare Chest xray Cardiomegaly CT chest revealed small bilateral pleural effusions with pericardial effusion. Pericardial effusion measuring up to 1.6 cm in thickness. Moderate cardiomegaly. Laboratory reviewed, WBC 4.6, hemoglobin 7.5, platelets 162, sodium 140, potassium 5.2, BUN 69, serum creatinine 2.3 Current cardiac medications include spironolactone 25 mg daily, simvastatin 20 mg daily, losartan 50 mg daily, Lasix 20 mg twice a day, carvedilol 25 mg twice a day REVIEW OF SYSTEMS At the time of my exam: CONSTITUTIONAL: Denies fever or chills. CARDIOVASCULAR: Denies chest pain, shortness of breath, orthopnea, PND or palpitations. RESPIRATORY: Denies cough. GASTROINTESTINAL: Denies abdominal pain, diarrhea, constipation, nausea or vomiting. MUSCULOSKELETAL: Denies myalgias. NEUROLOGIC: Denies numbness, tingling, headacbe or weakness. ENDOCRINE: Denies fatigue, weight change, polydipsia or polyurina. GENITOURINARY: Denies burning, hematuria or urgency with micturation. HEMATOLOGIC: +anemia, +vaginal bleeding PHYSICAL EXAMINATION Blood pressure 184/81 heart rate 85 afebrile and maintaining oxygen saturation 96% on room air CONSTITUTIONAL: No apparent distress. HEENT: Head is normocephalic. Pupils are equal, round. Sclerae anicteric. Mucous membranes of the mouth are moist. No JVD. No carotid bruit. CHEST EXAMINATION: Lungs are clear to auscultation. No chest wall tenderness is noted on palpation or with deep breathing. HEART EXAMINATION: Regular rate and rhythm. S1, S2 heard. No murmurs, gallops or rub. ABDOMEN: Soft, nontender. Positive bowel sounds. EXTREMITIES: 2+ peripheral pulses, 2+ bilateral lower extremity edema and no calf tenderness. NEUROLOGIC EXAMINATION: Patient is awake, alert and oriented x3. ASSESSMENT Acute Kidney Injury Pericardial Effusion History of chronic kidney disease, sCr 1.8-2 previously Anemia Vaginal Bleeding Hyperkalemia Hypertension PLAN Will continue IV Diuresis, IV Lasix 40mg BID Monitor renal function and electrolytes Continue statin, carvedilol, losartan, spironolactone Further recommendations based on evaluation by Dr. Li Nurse Practitioner note has been reviewed, I agree with a documented findings and plan of care. Patient was seen and examined. Past Medical History Past Medical History: Diabetes Mellitus, Hypertension History of Any Multi-Drug Resistant Organisms: None Reported Past Surgical History: No Surgical Hx Reported Past Anesthesia/Blood Transfusion Reactions: No Reported Reaction Past Psychological History: Anxiety, Depression Smoking Status: Never smoker Past Alcohol Use History: None Reported Past Drug Use History: None Reported Medications and Allergies Home Medications Medication Instructions Recorded Confirmed Type Allopurinol [Zyloprim] 100 mg PO DAILY 12/16/20 02/28/21 History Ascorbic Acid [Vitamin C] 500 mg PO DAILY 12/16/20 02/28/21 History Carvedilol [Coreg] 25 mg PO BID 12/16/20 02/28/21 History Cholecalciferol [Vitamin D3 (25 75 mcg PO DAILY 12/16/20 02/28/21 History Mcg = 1000 Iu)] Ferrous Sulfate [Iron (65 MG 325 mg PO TID 12/16/20 02/28/21 History Elemental)] Furosemide [Lasix] 20 mg PO BID@0900,1600 12/16/20 02/28/21 History Hyoscyamine Sulfate [Levsin] 0.125 mg PO TID 12/16/20 02/28/21 History Losartan [Cozaar] 50 mg PO DAILY 12/16/20 02/28/21 History Pantoprazole Sodium 40 mg PO DAILY 12/16/20 02/28/21 History Simvastatin [Zocor] 20 mg PO HS 12/16/20 02/28/21 History Spironolactone 25 mg PO DAILY 12/16/20 02/28/21 History sitaGLIPtin [Januvia] 100 mg PO DAILY 12/16/20 02/28/21 History Multivitamins, Thera [Multivitamin 1 tab PO DAILY 02/28/21 02/28/21 History (formulary)] Pioglitazone [Actos] 45 mg PO DAILY 02/28/21 02/28/21 History Repaglinide [Prandin] 2 mg PO TID 02/28/21 02/28/21 History Allergies Allergy/AdvReac Type Severity Reaction Status Date / Time No Known Allergies Allergy Verified 02/28/21 18:33 Physical Exam Vitals: Vital Signs Temp Pulse Pulse Resp BP BP Pulse Ox 03/03/21 05:00 98.1 F 56 L 16 149/63 100 03/02/21 21:18 98.2 F 65 18 167/73 96 03/02/21 20:13 98.0 F 62 16 164/80 99 03/02/21 18:38 98.1 F 63 16 151/77 92 L 03/02/21 18:08 98.1 F 62 17 171/67 99 03/02/21 17:58 97.9 F 63 17 131/51 94 L 03/02/21 11:49 97.7 F 61 20 148/71 97 Intake and Output 03/02/21 03/03/21 03/03/21 22:59 06:59 14:59 Intake Total 310 590 Balance 310 590 Intake: Oral 590 Blood Product 310 Rc As-1 Unit 310 [id number] Other: Voiding Method Toilet # Voids 3 2 Results 03/03/21 05:21 03/03/21 05:21 Cardiac Enzymes 03/02/21 Range/Units 16:36 Troponin I 0.023 (0.000-0.034) ng/mL CBC 03/03/21 Range/Units 05:21 WBC 4.6 (3.8-10.6) k/uL RBC 2.34 L (3.80-5.40) m/uL Hgb 7.5 L (11.4-16.0) gm/dL Hct 23.1 L (34.0-46.0) % Plt Count 162 (150-450) k/uL Comprehensive Metabolic Panel 21 03/03/21 Range/Units 05:23 05:21 Sodium 141 140 (135-145) mmol/L Potassium 4.8 5.2 H (3.5-5.5) mmol/L Chloride 115 H 113 H (96-109) mmol/L Carbon Dioxide 21.3 L 20 L (21.6-31.8) mmol/L BUN 70.0 H 69 H (9.0-27.0) mg/dL Creatinine 2.4 H 2.35 H (0.6-1.5) mg/dL Glucose 141 H 141 H (70-110) mg/dL Calcium 8.0 L 8.4 (8.7-10.3) mg/dL Current Medications Generic Name Dose Route Start Last Admin Trade Name Freq PRN Reason Stop Dose Admin Acetaminophen 650 mg 02/28/21 18:49 03/03/21 00:30 Acetaminophen Tab 325 Mg Tab PO 650 mg Q6HR PRN Administration Mild Pain or Fever > 100.5 Allopurinol 100 mg 03/02/21 09:00 03/03/21 09:53 Allopurinol 100 Mg Tab PO 100 mg DAILY LOVE Administration Ascorbic Acid 500 mg 03/02/21 09:00 03/03/21 09:53 Ascorbic Acid 500 Mg Tab PO 500 mg DAILY LOVE Administration Atorvastatin Calcium 10 mg 02/28/21 21:00 03/02/21 21:12 Atorvastatin 10 Mg Tab PO 10 mg HS LOVE Administration Carvedilol 25 mg 02/28/21 21:00 03/03/21 09:53 Carvedilol 12.5 Mg Tab PO 25 mg BID LOVE Administration Cholecalciferol 75 mcg 03/02/21 09:00 03/03/21 09:53 Cholecalciferol 25 Mcg (1000 Iu) Tablet PO 75 mcg DAILY LOVE Administration Ferrous Sulfate 325 mg 02/28/21 22:00 03/03/21 09:53 Ferrous Sulfate 325 Mg Tab PO 325 mg TID LOVE Administration Furosemide 20 mg 03/01/21 09:00 03/03/21 09:53 Furosemide 20 Mg Tab PO 20 mg BID@0900,1600 LOVE Administration Hyoscyamine 0.125 mg 03/01/21 16:00 03/03/21 09:54 Hyoscyamine Sulfate 0.125 Mg Tab PO 0.125 mg TID LOVE Administration Ceftriaxone Sodium 1 gm/ 50 mls @ 100 mls/hr 02/28/21 19:30 03/03/21 09:52 Sodium Chloride IVPB 100 mls/hr DAILY LOVE Administration Insulin Aspart 0 unit 03/01/21 12:30 03/03/21 08:39 Insulin Aspart (Novolog) 100 Unit/Ml Vial SQ 1 unit ACHS LOVE Administration Protocol Linagliptin 5 mg 03/01/21 09:00 03/03/21 09:54 Linagliptin 5 Mg Tablet PO 5 mg DAILY LVOE Administration Losartan Potassium 25 mg 03/03/21 09:00 03/03/21 09:54 Losartan 25 Mg Tab PO 25 mg DAILY LOVE Administration Multivitamins 1 each 03/02/21 09:00 03/03/21 09:52 Multivitamins, Thera 1 Each Tab PO 1 each DAILY LOVE Administration Naloxone HCl 0.2 mg 02/28/21 18:49 Naloxone 0.4 Mg/Ml 1 Ml Vial IV Q2M PRN Opioid Reversal Pantoprazole Sodium 40 mg 03/01/21 07:30 03/03/21 09:53 Pantoprazole 40 Mg Tablet PO 40 mg DAILY@0730 LOVE Administration Pioglitazone HCl 45 mg 03/01/21 09:00 03/03/21 09:52 Pioglitazone 45 Mg Tab PO 45 mg DAILY LOVE Administration Repaglinide 2 mg 02/28/21 22:00 03/03/21 09:52 Repaglinide 1 Mg Tab PO 2 mg TID LOVE Administration Spironolactone 25 mg 03/01/21 09:00 03/03/21 09:53 Spironolactone 25 Mg Tab PO 25 mg DAILY LOVE Administration Intake and Output 03/02/21 03/03/21 03/03/21 22:59 06:59 14:59 Intake Total 310 590 Balance 310 590 Intake: Oral 590 Blood Product 310 Rc As-1 Unit 310 [id number] Other: Voiding Method Toilet # Voids 3 2 03/03/21 05:21 03/03/21 05:21
[2021-03-03] MEDS ORDERED: HEPARIN SODIUM,PORCINE/PF 5,000 UNIT/0.5 ML SYRINGE SQ SCH (15:00)
--- NOTE | 2021-03-03 16:33 | PN ---
PROGRESS NOTE DATE OF SERVICE: 03/03/2021 This 65-year-old woman who was admitted with acute UTI with acute tubular necrosis also had possible underlying chronic disease. The patient also had mild to moderate pericardial effusion. CT scan of the chest, which was reviewed personally by me, showed bilateral pleural effusion with a pericardial effusion. No suspicious masses noted. Moderate cardiomegaly is noted. Past medical history reviewed. REVIEW OF SYSTEMS: CARDIOVASCULAR SYSTEM: As mentioned earlier. RESPIRATION: As mentioned earlier. GI: As mentioned earlier. : No dysuria. NERVOUS SYSTEM: No numbness, weakness. CURRENT MEDICATIONS: Reviewed. They include Tylenol, zyloprim, vitamin C, Lipitor, Coreg, Rocephin, iron sulfate, Lasix, Levsin, Tradjenta, multivitamins. Doses and other medications are reviewed. PHYSICAL EXAMINATION: Patient is alert and oriented x3. Pulse 85, blood pressure 184/81, respiration 18, temperature 98 degrees, pulse ox 96% on room air. HEENT: Conjunctivae normal. NECK: No jugular venous distention. CARDIOVASCULAR: S1, S2 muffled. RESPIRATION: Breath sounds diminished at the bases. A few scattered rhonchi. ABDOMEN: Soft, obese. Abdominal wall edema. LEGS: Bilateral leg edema. NERVOUS SYSTEM: Higher functions as mentioned earlier. Moves all 4 limbs. No focal motor or sensory deficit. LYMPHATICS: No lymph node palpable in neck, axillae or groin. SKIN: No ulcer, rash, bleeding. JOINTS: No active deforming arthropathy. LAB STUDIES: WBC 4.6, hemoglobin 7.2, sodium 140, potassium 5.2. Creatinine is 2.35. ASSESSMENT: 1. Acute renal failure with possible acute tubular necrosis and prerenal renal failure. 2. Possible underlying chronic kidney disease, stage 3. 3. Mild to moderate generalized pericardial effusion and bilateral pleural effusions. 4. Vaginal bleeding for evaluation. Rule out malignancy. 5. Hyperkalemia. 6. Acute blood loss anemia secondary to vaginal bleeding. 7. Increased white count. 8. Rule out congestive heart failure. 9. Anasarca. 10.Obesity with body mass index of 37.6. 11.Diabetes mellitus, type 2. 12.Hypertension. 13.History of anxiety, depression. 14.FULL CODE. RECOMMENDATIONS AND DISCUSSION: I recommend to continue current medications, continue with symptomatic treatment. Continue with cautious diuretics. Limit fluids for now. Exact etiology of pericardial effusion is unknown; could be part of the anasarca. I would also recommend an NT- proBNP further workup also. Guarded prognosis. Further recommendations to follow. MMODL / IJN: [id number] /
[2021-03-03 16:40] LABS: ALT 12 U/L (4-34); AST 17 U/L (14-36); African American GFR (CKD) 27 (>60 ml/min/1.73 sqM); Albumin 3.6 g/dL (3.5-5.0); Albumin/Globulin Ratio 1.3; Alkaline Phosphatase 92 U/L (38-126); Blood Urea Nitrogen 68 mg/dL (7-17); C Reactive Protein <0.5 mg/dL (<1.0); Calcium 8.9 mg/dL (8.4-10.2); Carbon Dioxide 21 mmol/L (22-30); Globulin 2.7 g/dL; Glucose 183 mg/dL (74-99); Non-African American GFR(CKD) 23 (>60 ml/min/1.73 sqM); Total Bilirubin 0.1 mg/dL (0.2-1.3); Total Protein 6.3 g/dL (6.3-8.2)
[2021-03-03 16:46] LABS: Anion Gap 7 mmol/L; Chloride 111 mmol/L (98-107); Potassium 5.2 mmol/L (3.5-5.1); Sodium 139 mmol/L (137-145)
[2021-03-03 17:24] LABS: Glucose,Whole Blood 198 mg/dL (75-99)
[2021-03-03 20:58] LABS: Glucose,Whole Blood 175 mg/dL (75-99)
[2021-03-03 21:16] LABS: % Iron Saturation 8.52 (12.00-45.00)
[2021-03-03] MEDS: ATORVASTATIN 10 MG TAB PO SCH (21:31)
[2021-03-04] MEDS ORDERED: HEPARIN SODIUM,PORCINE/PF 5,000 UNIT/0.5 ML SYRINGE SQ SCH (06:00)
[2021-03-04 06:16] LABS: Anisocytosis Slight; Basophils % (A) 1 %; Eosinophils # (A) 0.2 k/uL (0-0.7); Eosinophils % (A) 4 %; HCT 26.5 % (34.0-46.0); HGB 8.2 gm/dL (11.4-16.0); Hypochromasia Slight; Lymphocytes % (A) 22 %; MCH 30.7 pg (25.0-35.0); Macrocytosis Slight; Mean Platelet Volume 8.7; Monocytes # (A) 0.2 k/uL (0-1.0); Monocytes % (A) 5 %; Neutrophils % (A) 66 %; Platelet Count 159 k/uL (150-450); RBC 2.68 m/uL (3.80-5.40); RDW 16.4 % (11.5-15.5); WBC 4.5 k/uL (3.8-10.6)
[2021-03-04 06:32] LABS: African American GFR (CKD) 23 (>60 ml/min/1.73 sqM); Anion Gap 7 mmol/L; Blood Urea Nitrogen 67 mg/dL (7-17); Calcium 8.7 mg/dL (8.4-10.2); Carbon Dioxide 20 mmol/L (22-30); Chloride 111 mmol/L (98-107); Glucose 108 mg/dL (74-99); Non-African American GFR(CKD) 20 (>60 ml/min/1.73 sqM); Potassium 4.9 mmol/L (3.5-5.1); Sodium 138 mmol/L (137-145)
[2021-03-04 06:39] LABS: Glucose,Whole Blood 125 mg/dL (75-99)
[2021-03-04] MEDS: HEPARIN SODIUM,PORCINE/PF 5,000 UNIT/0.5 ML SYRINGE SQ SCH ×2 (07:40→07:41)
[2021-03-04] MEDS: INSULIN ASPART (NovoLOG) 100 UNIT/ML VIAL SQ SCH ×2 (07:53→13:39)
[2021-03-04] MEDS: MULTIVITAMINS, THERA 1 EACH TAB PO SCH (08:38)
[2021-03-04] MEDS: PIOGLITAZONE 45 MG TAB PO SCH (08:38)
[2021-03-04] MEDS: HYOSCYAMINE SULFATE 0.125 MG TAB PO SCH ×2 (08:38→17:07)
[2021-03-04] MEDS: PANTOPRAZOLE 40 MG TABLET PO SCH (08:38)
[2021-03-04] MEDS: carvediloL 12.5 MG TAB PO SCH (08:39)
[2021-03-04] MEDS: LINAGLIPTIN 5 MG TABLET PO SCH (08:39)
[2021-03-04] MEDS: LOSARTAN 25 MG TAB PO SCH (08:39)
[2021-03-04] MEDS: FERROUS SULFATE 325 MG TAB PO SCH ×2 (08:39→17:07)
[2021-03-04] MEDS: allopurinoL 100 MG TAB PO SCH (08:39)
[2021-03-04] MEDS: CHOLECALCIFEROL 25 MCG (1000 IU) TABLET PO SCH (08:39)
[2021-03-04] MEDS: ASCORBIC ACID 500 MG TAB PO SCH (08:40)
[2021-03-04] MEDS: FUROSEMIDE 10 MG/ML 4 ML VIAL IV SCH (08:40)
[2021-03-04] MEDS: SPIRONOLACTONE 25 MG TAB PO SCH (08:42)
[2021-03-04] MEDS: REPAGLINIDE 1 MG TAB PO SCH ×2 (09:44→17:07)
[2021-03-04 10:47] LABS: Rheumatoid Factor, Qnt 10 IU/mL (0-15)
[2021-03-04 12:08] VITALS: BP 191/79; PULSE 67; RESP 20; TEMP 98.1
--- NOTE | 2021-03-04 12:18 | P.PN ---
Subjective Progress Note Date: 03/04/21 his is a 65-year-old female with past medical history remarkable for type 2 diabetes, chronic kidney disease, hypertension. 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 We are consulted for pericardial effusion seen on echocardiogram. Patient presents to the emergency department complaining of a 3 month history of abnormal uterine bleeding. She states that she followed up with her primary care doctor and labs were drawn her hemoglobin was low and her renal function was low and was told to go to the emergency department. On admission, hemoglobin was 8.5, Sodium 137, K 5.8, BUN 80, sCr 2.45, magnesium 2.6, troponin negative 1. Gynecology has evaluated the patient and recommended outpatient workup. Darius stewart was found to be in acute kidney injury, hyperkalemia, and anemia. Nephrology was consulted. Patient initially started on IV fluids. Her Losartan was decreased to 25mg daily. Patient states she continues to have vaginal bleeding. She denies any chest pain, shortness of breath, lightheadedness, palpitations, dysuria, hematuria, abdominal pain, nausea, vomiting, diarrhea. Patient denies any history of VA, stroke, coronary disease, hypertension. Family history includes her father having VA in his 50s and . She states she has had stress tests in the past but were told these were normal. She states she initially starting having lower extremity edema 3 years ago, was put on medication in the past that improved her edema. DIAGNOSTICS EKG reveals sinus rhythm, heart rate 71, no significant ST-T wave abnormalities. No prior EKG to compare Chest xray Cardiomegaly CT chest revealed small bilateral pleural effusions with pericardial effusion. Pericardial effusion measuring up to 1.6 cm in thickness. Moderate cardiomegaly. Laboratory reviewed, WBC 4.6, hemoglobin 7.5, platelets 162, sodium 140, potassium 5.2, BUN 69, serum creatinine 2.3 Current cardiac medications include spironolactone 25 mg daily, simvastatin 20 mg daily, losartan 50 mg daily, Lasix 20 mg twice a day, carvedilol 25 mg twice a day 03/04/2021 Patient examined this morning at the bedside. Patient denies chest pain or pressure. She denies shortness of breath. She continues to have mild lower summary edema although it is improving. She remeans on IV Lasix per nephrology. Creatinine 2.43. Blood pressure 191/79. PHYSICAL EXAMINATION CONSTITUTIONAL: No apparent distress. HEENT: Head is normocephalic. Pupils are equal, round. Sclerae anicteric. Mucous membranes of the mouth are moist. No JVD. No carotid bruit. CHEST EXAMINATION: Lungs are clear to auscultation. No chest wall tenderness is noted on palpation or with deep breathing. HEART EXAMINATION: Regular rate and rhythm. S1, S2 heard. No murmurs, gallops or rub. EXTREMITIES: 2+ peripheral pulses, 1-2+ bilateral lower extremity edema and no calf tenderness. ASSESSMENT Acute Kidney Injury Pericardial Effusion History of chronic kidney disease, sCr 1.8-2 previously Anemia Vaginal Bleeding Hyperkalemia Hypertension PLAN Continue IV diuretics per nephrology Patient's blood pressure currently uncontrolled. Will continue current dose of losartan secondary to kidney function Will add hydralazine 25 mg 3 times a day for optimal blood pressure control Consult cardiothoracic surgery for evaluation of pericardial effusion and possi ble diagnostic pericardiocentesis Further recommendations pending patient's course Nurse Practitioner note has been reviewed, I agree with a documented findings and plan of care. Patient was seen and examined. Objective - Vital Signs Vital signs: Vital Signs Temp 98.1 F 03/04/21 12:07 Pulse 67 03/04/21 12:07 Resp 20 03/04/21 12:07 BP 191/79 03/04/21 12:07 Pulse Ox 97 03/04/21 12:07 Intake & Output 03/03/21 03/04/21 03/04/21 18:59 06:59 18:59 Weight 115.7 kg Other: Voiding Method Toilet - Labs CBC & Chem 7: 03/04/21 05:39 03/04/21 05:39 Labs: Abnormal Lab Results - Last 24 Hours (Table) 03/02/21 03/03/21 03/03/21 Range/Units 05:23 15:47 15:47 RBC (3.80-5.40) m/uL Hgb (11.4-16.0) gm/dL Hct (34.0-46.0) % RDW (11.5-15.5) % ESR 34 H (0-20) mm/hr Potassium 5.2 H (3.5-5.1) mmol/L Chloride 111 H (98-107) mmol/L Carbon Dioxide 21 L (22-30) mmol/L BUN 68 H (7-17) mg/dL Creatinine 2.18 H (0.52-1.04) mg/dL Glucose 183 H (74-99) mg/dL POC Glucose (mg/dL) (75-99) mg/dL Iron 23 L (50-170) ug/dL % Saturation 8.52 L (12.00-45.00) Total Bilirubin 0.1 L (0.2-1.3) mg/dL 03/03/21 03/03/21 03/04/21 Range/Units 17:19 20:57 05:39 RBC (3.80-5.40) m/uL Hgb (11.4-16.0) gm/dL Hct (34.0-46.0) % RDW (11.5-15.5) % ESR (0-20) mm/hr Potassium (3.5-5.1) mmol/L Chloride 111 H (98-107) mmol/L Carbon Dioxide 20 L (22-30) mmol/L BUN 67 H (7-17) mg/dL Creatinine 2.43 H (0.52-1.04) mg/dL Glucose 108 H (74-99) mg/dL POC Glucose (mg/dL) 198 H 175 H (75-99) mg/dL Iron (50-170) ug/dL % Saturation (12.00-45.00) Total Bilirubin (0.2-1.3) mg/dL 03/04/21 03/04/21 Range/Units 05:39 06:38 RBC 2.68 L (3.80-5.40) m/uL Hgb 8.2 L (11.4-16.0) gm/dL Hct 26.5 L (34.0-46.0) % RDW 16.4 H (11.5-15.5) % ESR (0-20) mm/hr Potassium (3.5-5.1) mmol/L Chloride (98-107) mmol/L Carbon Dioxide (22-30) mmol/L BUN (7-17) mg/dL Creatinine (0.52-1.04) mg/dL Glucose (74-99) mg/dL POC Glucose (mg/dL) 125 H (75-99) mg/dL Iron (50-170) ug/dL % Saturation (12.00-45.00) Total Bilirubin (0.2-1.3) mg/dL Microbiology - Last 24 Hours (Table) 03/01/21 12:19 Blood Culture - Preliminary Blood No Growth after 48 hours
[2021-03-04 12:20] LABS: Glucose,Whole Blood 188 mg/dL (75-99)
--- NOTE | 2021-03-04 14:38 | P.GSCN ---
History of Present Illness Consult date: 03/04/21 Reason for Consult: pericardial effusion Requesting physician: Jody Gaines History of present illness: This is a 65 year old female patient follows on an outpatient basis with Dr. Delroy Lawrence for primary care. She has a previous medical history of hypertension, diabetes, recently diagnosed kidney disease, and family history of premature CAD. She presented to [facility] emergency room with complaints of significant vaginal bleeding for 3 months and anemia at the request of her primary care physician. She denied any chest pain, shortness of breath, dizziness, or any other symptomatology. She assumed she was going through menopause although the bleeding had increased over the prior few days. Hemoglobin was 8.5, BUN 80, creatinine 2.45, potassium 5.8, urinalysis was positive but culture was negative. She was admitted for evaluation and treatment with diagnosis of anemia, kidney disease, hyperkalemia. Consultation was placed to PROGRAM MGR, nephrology, cardiology. Workup included a transthoracic echocardiogram which demonstrated normal left ventricular function with EF 60- 65%, mild aortic insufficiency, mild mitral regurgitation, and mild tricuspid regurgitation with mild to moderate generalized pericardial effusion. She also had a chest CT demonstrating bilateral pleural effusion and pericardial effusion with 1.6 cm thickness. Consultation was placed to cardiothoracic surgery for recommendations regarding pericardial effusion. Review of Systems Review of systems was completed and was negative except as noted - Cardiovascular Cardiovascular Comment(s): lower extremity edema which is chronic Reports leg edema - Genitourinary Genitourinary: Reports as per HPI, Reports abnormal vaginal bleeding Past Medical History Past Medical History: Diabetes Mellitus, Hypertension, Renal Disease Additional Past Medical History / Comment(s): fall 2 year ago, now walks with cane History of Any Multi-Drug Resistant Organisms: None Reported Past Surgical History: No Surgical Hx Reported Past Anesthesia/Blood Transfusion Reactions: No Reported Reaction Past Psychological History: Anxiety, Depression Smoking Status: Never smoker Past Alcohol Use History: None Reported Past Drug Use History: None Reported - Past Family History Father Family Medical History: Myocardial Infarction (MS) Additional Family Medical History / Comment(s): father of MS at 58 years old Mother Additional Family Medical History / Comment(s): mother of old age at 95 years old Medications and Allergies Home Medications Medication Instructions Recorded Confirmed Type Allopurinol [Zyloprim] 100 mg PO DAILY 12/16/20 02/28/21 History Ascorbic Acid [Vitamin C] 500 mg PO DAILY 12/16/20 02/28/21 History Carvedilol [Coreg] 25 mg PO BID 12/16/20 02/28/21 History Cholecalciferol [Vitamin D3 (25 75 mcg PO DAILY 12/16/20 02/28/21 History Mcg = 1000 Iu)] Ferrous Sulfate [Iron (65 MG 325 mg PO TID 12/16/20 02/28/21 History Elemental)] Furosemide [Lasix] 20 mg PO BID@0900,1600 12/16/20 02/28/21 History Hyoscyamine Sulfate [Levsin] 0.125 mg PO TID 12/16/20 02/28/21 History Losartan [Cozaar] 50 mg PO DAILY 12/16/20 02/28/21 History Pantoprazole Sodium 40 mg PO DAILY 12/16/20 02/28/21 History Simvastatin [Zocor] 20 mg PO HS 12/16/20 02/28/21 History Spironolactone 25 mg PO DAILY 12/16/20 02/28/21 History sitaGLIPtin [Januvia] 100 mg PO DAILY 12/16/20 02/28/21 History Multivitamins, Thera [Multivitamin 1 tab PO DAILY 02/28/21 02/28/21 History (formulary)] Pioglitazone [Actos] 45 mg PO DAILY 02/28/21 02/28/21 History Repaglinide [Prandin] 2 mg PO TID 02/28/21 02/28/21 History Allergies Allergy/AdvReac Type Severity Reaction Status Date / Time No Known Allergies Allergy Verified 02/28/21 18:33 Surgical - Exam Vital Signs Temp Pulse Resp BP Pulse Ox 98.0 F 69 18 130/79 96 02/28/21 16:13 02/28/21 16:13 02/28/21 16:13 02/28/21 16:13 02/28/21 16:13 CONSTITUTIONAL: Awake and alert, appears comfortable, cooperative, well-developed, well-nourished, no pain, no acute distress EYES: Pupils equal, round, reactive to light, normal ocular movement ENT: Moist mucous membranes without oral lesions present NECK: No masses, no bruits, trachea midline RESPIRATORY: Lungs sounds clear to auscultation bilaterally. Respirations even, nonlabored. Currently on room air with oxygen saturation 96%. Strong cough. CARDIOVASCULAR: S1, S2 present. Regular rate and rhythm, sinus rhythm on telemetry. Palpable peripheral pulses bilaterally. Bilateral lower extremity edema present, both legs tammie-wrapped. No calf pain or tenderness noted. GASTROINTESTINAL: Abdomen soft, nontender, nondistended without masses or organomegaly noted. There is no rebound or guarding present. Active bowel sounds present 4 quadrants. GENITOURINARY: Deferred INTEGUMENTARY: Skin is warm and dry NEUROLOGIC: Cranial nerves II through XII intact, normal coordination, no obvious motor or sensory deficits, speech is normal MUSKULOSKELETAL: Able to move all extremities, strength equal bilaterally, normal posture, walks with cane PSYCHIATRIC: Alert and oriented to person place and time, appropriate affect, intact judgment and insight Results - Labs 03/04/21 05:39 03/04/21 05:39 Abnormal Lab Results - Last 24 Hours (Table) 03/02/21 03/03/21 03/03/21 Range/Units 05:23 12:11 15:47 RBC (3.80-5.40) m/uL Hgb (11.4-16.0) gm/dL Hct (34.0-46.0) % RDW (11.5-15.5) % ESR 34 H (0-20) mm/hr Potassium (3.5-5.1) mmol/L Chloride (98-107) mmol/L Carbon Dioxide (22-30) mmol/L BUN (7-17) mg/dL Creatinine (0.52-1.04) mg/dL Glucose (74-99) mg/dL POC Glucose (mg/dL) 176 H (75-99) mg/dL Iron 23 L (50-170) ug/dL % Saturation 8.52 L (12.00-45.00) Total Bilirubin (0.2-1.3) mg/dL 03/03/21 03/03/21 03/03/21 Range/Units 15:47 17:19 20:57 RBC (3.80-5.40) m/uL Hgb (11.4-16.0) gm/dL Hct (34.0-46.0) % RDW (11.5-15.5) % ESR (0-20) mm/hr Potassium 5.2 H (3.5-5.1) mmol/L Chloride 111 H (98-107) mmol/L Carbon Dioxide 21 L (22-30) mmol/L BUN 68 H (7-17) mg/dL Creatinine 2.18 H (0.52-1.04) mg/dL Glucose 183 H (74-99) mg/dL POC Glucose (mg/dL) 198 H 175 H (75-99) mg/dL Iron (50-170) ug/dL % Saturation (12.00-45.00) Total Bilirubin 0.1 L (0.2-1.3) mg/dL 03/04/21 03/04/21 03/04/21 Range/Units 05:39 05:39 06:38 RBC 2.68 L (3.80-5.40) m/uL Hgb 8.2 L (11.4-16.0) gm/dL Hct 26.5 L (34.0-46.0) % RDW 16.4 H (11.5-15.5) % ESR (0-20) mm/hr Potassium (3.5-5.1) mmol/L Chloride 111 H (98-107) mmol/L Carbon Dioxide 20 L (22-30) mmol/L BUN 67 H (7-17) mg/dL Creatinine 2.43 H (0.52-1.04) mg/dL Glucose 108 H (74-99) mg/dL POC Glucose (mg/dL) 125 H (75-99) mg/dL Iron (50-170) ug/dL % Saturation (12.00-45.00) Total Bilirubin (0.2-1.3) mg/dL Microbiology - Last 24 Hours (Table) 03/01/21 12:19 Blood Culture - Preliminary Blood No Growth after 48 hours Diabetes panel 03/03/21 03/04/21 Range/Units 15:47 05:39 Sodium 139 138 (137-145) mmol/L Potassium 5.2 H 4.9 (3.5-5.1) mmol/L Chloride 111 H 111 H (98-107) mmol/L Carbon Dioxide 21 L 20 L (22-30) mmol/L BUN 68 H 67 H (7-17) mg/dL Creatinine 2.18 H 2.43 H (0.52-1.04) mg/dL Glucose 183 H 108 H (74-99) mg/dL Calcium 8.9 8.7 (8.4-10.2) mg/dL AST 17 (14-36) U/L ALT 12 (4-34) U/L Alkaline Phosphatase 92 (38-126) U/L Total Protein 6.3 (6.3-8.2) g/dL Albumin 3.6 (3.5-5.0) g/dL Calcium panel 03/03/21 03/04/21 Range/Units 15:47 05:39 Calcium 8.9 8.7 (8.4-10.2) mg/dL Albumin 3.6 (3.5-5.0) g/dL Pituitary panel 03/03/21 03/04/21 Range/Units 15:47 05:39 Sodium 139 138 (137-145) mmol/L Potassium 5.2 H 4.9 (3.5-5.1) mmol/L Chloride 111 H 111 H (98-107) mmol/L Carbon Dioxide 21 L 20 L (22-30) mmol/L BUN 68 H 67 H (7-17) mg/dL Creatinine 2.18 H 2.43 H (0.52-1.04) mg/dL Glucose 183 H 108 H (74-99) mg/dL Calcium 8.9 8.7 (8.4-10.2) mg/dL Adrenal panel 03/03/21 03/04/21 Range/Units 15:47 05:39 Sodium 139 138 (137-145) mmol/L Potassium 5.2 H 4.9 (3.5-5.1) mmol/L Chloride 111 H 111 H (98-107) mmol/L Carbon Dioxide 21 L 20 L (22-30) mmol/L BUN 68 H 67 H (7-17) mg/dL Creatinine 2.18 H 2.43 H (0.52-1.04) mg/dL Glucose 183 H 108 H (74-99) mg/dL Calcium 8.9 8.7 (8.4-10.2) mg/dL Total Bilirubin 0.1 L (0.2-1.3) mg/dL AST 17 (14-36) U/L ALT 12 (4-34) U/L Alkaline Phosphatase 92 (38-126) U/L Total Protein 6.3 (6.3-8.2) g/dL Albumin 3.6 (3.5-5.0) g/dL - Imaging CT scan - chest: report reviewed, image reviewed Additional studies: Echocardiogram film reviewed with Dr. Morillo Assessment and Plan Assessment: 1. Pericardial effusion, mild to moderate on echo 2. Vaginal bleeding on admission, anemia present on admission 3. Acute on chronic kidney disease, creatinine 2.45 on admission 4. Hyperkalemia, present on admission 5. History of hypertension 6. History of diabetes 7. Fall at home 2 years ago 8. Family history of premature CAD Plan: The patient was seen and examined at the bedside. Chart/diagnostics reviewed including review of computed tomography scan and echocardiogram with Dr. Morillo. The patient is in no acute distress, oxygenating well on room air, not tachycardic, not hypotensive. At this time there is no indication for surgical intervention regarding her pericardial effusion. Continue to diurese. Repeat echo in 1-2 months. Medical management of other comorbidities per primary care, nephrology, cardiology, PROGRAM MGR. Thank you for this consult. Please call us with any further questions. Time with Patient: Greater than 30
--- NOTE | 2021-03-04 14:49 | PN ---
PROGRESS NOTE Patient is seen for followup for acute kidney injury, mostly cardiorenal on top of chronic kidney disease. Patient is currently being diuresed. Chest x-ray shows pleural effusions and there was evidence of pericardial effusion on the chest CT and echocardiogram as well. No evidence of tamponade. The patient states she is feeling better. PHYSICAL EXAMINATION: Blood pressure 166/71, heart rate 60 per minute. She is afebrile. Examination of lower extremities shows edema 2+ bilaterally. PATIENT REGISTRATION REP exam grossly intact. LAB: Show sodium 138, potassium 4.9, BUN 67, creatinine 2.4, hemoglobin 8.2 g/dL. ASSESSMENT: 1. Acute kidney injury, cardiorenal. 2. Chronic kidney disease, NKF stage 3B to 4 with baseline creatinine about 1.8-2 mg/dL. Etiology is diabetic kidney disease and nephrosclerosis. 3. Pyuria with urine culture currently negative, maintained on antibiotics. 4. Hyperkalemia associated with acute kidney injury, use of angiotensin receptor blockers and Aldactone, currently improved. PLAN: The patient is maintained on low-potassium diet. She is also on IV Lasix. I will continue with loop diuretics. May continue with decreased dose of Cozaar and patient could be discharged home. She is advised to take a higher dose of Lasix at home. It appears that she was taking 40 mg b.i.d. I have advised her to take 60 mg b.i.d. for about 2-3 days and then decrease to 60 mg a.m. and 40 mg at p.m. and followup as outpatient. MMODL / IJN: [id number] /
[2021-03-04] MEDS ORDERED: hydrALAZINE HCL 25 MG TAB PO SCH (16:00)
[2021-03-04 17:15] LABS: Glucose,Whole Blood 180 mg/dL (75-99)
--- NOTE | 2021-03-04 18:35 | DS ---
DISCHARGE SUMMARY DATE OF SERVICE: 03/04/2021 FINAL DIAGNOSES: 1. Acute renal failure possible acute tubular necrosis and prerenal factors. 2. Possible underlying chronic kidney stage 3. 3. Mild to moderate generalized pericardial effusion and bilateral pleural effusions, possibly secondary to anasarca. 4. Vaginal bleeding for evaluation, rule out malignancy. 5. Hyperkalemia. 6. Acute blood loss anemia secondary to vaginal bleeding. 7. Increased WBC. 8. Anasarca. 9. Obesity with body mass index of 37.6. 10.Diabetes mellitus type 2. 11.Hypertension. 12.History of anxiety, depression/. 13.Full code. DISCHARGE CONDITION: The patient will be discharged in stable condition with guarded control. Total time taken 35 minutes. HISTORY OF PRESENT ILLNESS: This 65-year-old woman with a past medical history admitted with acute renal failure. The patient also had underlying chronic kidney disease. The patient also had generalized anasarca and as well as pericardial effusion. IV diuretics were given. Nephrology saw the patient. Patient also had vaginal bleeding and the patient was seen by the [facility] NEED CONSULTANT, recommend outpatient followup at this time. Otherwise, the patient also received 1 unit transfusion. PHYSICAL EXAM: Vitals are stable. Cardiovascular S1 and S2. Abdomen soft. Respiratory few rhonchi. LABS: Hemoglobin is 8.2, creatinine is 2.43. DISCHARGE INSTRUCTIONS: 1. Diet is cardiac. 2. Activity limited. 3. Followup with Dr. Lawrence in 1-2 days. 4. Followup with supervisor pumping station. 5. Followup with Nephrology as advised. DISCHARGE MEDICATIONS: 1. Actos 45 mg p.o. daily. 2. Coreg 25 mg p.o. b.i.d. 3. Cozaar 50 mg p.o. daily. 4. Iron sulfate 320 mg p.o. t.i.d. 5. Januvia 100 mg p.o. daily. 6. Lasix 20 mg p.o. b.i.d. 7. Levsin 0.125 mg t.i.d. 8. Multivitamins 1 p.o. daily. 9. Protonix 40 mg daily. 10.Prandin 2 mg p.o. t.i.d. 11.Aldactone 25 mg p.o. daily. 12.Vitamin C 500 mg p.o. daily. 13.Vitamin D3 75 mcg p.o. daily. 14.Zocor 20 mg at bedtime. 15.Zyloprim 100 mg p.o. daily. 16.Ceftin 500 mg p.o. b.i.d. for 3 days. The patient is discharged in stable condition with guarded prognosis. MMADDIE / KELLEE: [id number] /
== END 2021-03-04 18:15 | disposition home or self-care (01) | DRG 683 ==
LOC: EC 14:12 → 5NMEDONC 18:53
PROVIDERS: ADMIT Hospitalist; ATTEND Hospitalist
PROC: 30233N1 Transfusion of Nonautologous Red Blood Cells into Peripheral Vein, Percutaneous Approach (ICD-10-PCS; principal; 2021-03-02)
DX: N17.0 Acute kidney failure with tubular necrosis (principal); N39.0 Urinary tract infection, site not specified; D62 Acute posthemorrhagic anemia; I31.3 Pericardial effusion (noninflammatory); J90 Pleural effusion, not elsewhere classified; I27.20 Pulmonary hypertension, unspecified; D63.1 Anemia in chronic kidney disease; E11.22 Type 2 diabetes mellitus with diabetic chronic kidney disease; N18.32 Chronic kidney disease, stage 3b; I12.9 Hypertensive chronic kidney disease with stage 1 through stage 4 chronic kidney disease, or unspecified chronic kidney disease; E87.5 Hyperkalemia; E87.70 Fluid overload, unspecified; E86.0 Dehydration; N95.0 Postmenopausal bleeding; I08.3 Combined rheumatic disorders of mitral, aortic and tricuspid valves; E66.9 Obesity, unspecified; Z68.37 Body mass index [BMI] 37.0-37.9, adult; Z79.899 Other long term (current) drug therapy; Z79.84 Long term (current) use of oral hypoglycemic drugs; Z86.59 Personal history of other mental and behavioral disorders; Z91.81 History of falling; Z82.49 Family history of ischemic heart disease and other diseases of the circulatory system
CPT/HCPCS: 36415; 71045; 71250; 74176; 76830; 80048; 80053; 81001; 83540; 83550; 83735; 83880; 84132; 84484; 85025; 85610; 85652; 85730; 86038; 86140; 86431; 86850; 86900; 86901; 86920; 87040; 87086; 93005; 93306; 99285

== ENCOUNTER 2021-03-23 13:59 | Emergency (ER) | payer MEDICARE, BC ==
[2021-03-23 14:13] VITALS: TEMP 97.9
[2021-03-23 17:10] VITALS: RESP 18
--- NOTE | 2021-03-23 18:21 | ED ---
Female Urogenital HPI - General Chief complaint: Vaginal Bleeding Stated complaint: Critical Hemoglobin Time Seen by Provider: 03/23/21 14:32 Source: patient, RN notes reviewed Mode of arrival: wheelchair Limitations: no limitations - History of Present Illness Initial comments: 65-year-old female history of recently diagnosed endometrial adenocarcinoma who was sent here for evaluation and transferred to [facility] emergency department for consultation with ASSOCIATE STORE MANAGER oncology. Patient states she's been having intermittent vaginal bleeding she had none yesterday she had recurrence today she did have a hemoglobin level VII.5 today down from 7.9 and the seventh of this month. No abdominal pain no fevers chills nausea vomiting sweats other symptoms other than perhaps some lightheadedness when she gets up fast. MD Complaint: vaginal bleeding - Related Data Home Medications Medication Instructions Recorded Confirmed Allopurinol [Zyloprim] 100 mg PO DAILY 12/16/20 03/23/21 Ascorbic Acid [Vitamin C] 500 mg PO DAILY 12/16/20 03/23/21 Carvedilol [Coreg] 25 mg PO BID 12/16/20 03/23/21 Cholecalciferol [Vitamin D3 (25 75 mcg PO DAILY 12/16/20 03/23/21 Mcg = 1000 Iu)] Ferrous Sulfate [Iron (65 MG 325 mg PO TID 12/16/20 03/23/21 Elemental)] Furosemide [Lasix] 60 mg PO [id number] 12/16/20 03/23/21 Hyoscyamine Sulfate [Levsin] 0.125 mg PO TID 12/16/20 03/23/21 Losartan [Cozaar] 50 mg PO DAILY 12/16/20 03/23/21 Pantoprazole Sodium 40 mg PO DAILY 12/16/20 03/23/21 Simvastatin [Zocor] 20 mg PO HS 12/16/20 03/23/21 Spironolactone 25 mg PO DAILY 12/16/20 03/23/21 sitaGLIPtin [Januvia] 100 mg PO DAILY 12/16/20 03/23/21 Multivitamins, Thera [Multivitamin 1 tab PO DAILY 02/28/21 03/23/21 (formulary)] Pioglitazone [Actos] 45 mg PO DAILY 02/28/21 03/23/21 Repaglinide [Prandin] 2 mg PO TID 02/28/21 03/23/21 Furosemide [Lasix] 40 mg PO HS 03/04/21 03/23/21 Allergies Allergy/AdvReac Type Severity Reaction Status Date / Time No Known Allergies Allergy Verified 03/23/21 15:19 Review of Systems ROS Statement: Those systems with pertinent positive or pertinent negative responses have been documented in the HPI. ROS Other: All systems not noted in ROS Statement are negative. Past Medical History Past Medical History: Diabetes Mellitus, Hypertension, Renal Disease Additional Past Medical History / Comment(s): fall 2 year ago, now walks with cane History of Any Multi-Drug Resistant Organisms: None Reported Past Surgical History: No Surgical Hx Reported Past Anesthesia/Blood Transfusion Reactions: No Reported Reaction Past Psychological History: Anxiety, Depression Smoking Status: Never smoker Past Alcohol Use History: None Reported Past Drug Use History: None Reported - Past Family History Father Family Medical History: Myocardial Infarction (MA) Additional Family Medical History / Comment(s): father of MA at 58 years old Mother Additional Family Medical History / Comment(s): mother of old age at 95 years old General Exam - General Exam Comments Initial Comments: This is a well-developed well-nourished awake alert oriented 3 female Limitations: no limitations General appearance: alert, in no apparent distress Head exam: Present: atraumatic, normocephalic, normal inspection Eye exam: Present: normal appearance, PERRL, EOMI. Absent: scleral icterus, conjunctival injection, periorbital swelling ENT exam: Present: normal exam, mucous membranes moist Neck exam: Present: normal inspection. Absent: tenderness, meningismus, lymphadenopathy Respiratory exam: Present: normal lung sounds bilaterally. Absent: respiratory distress, wheezes, rales, rhonchi, stridor Cardiovascular Exam: Present: regular rate, normal rhythm, normal heart sounds. Absent: systolic murmur, diastolic murmur, rubs, gallop, clicks GI/Abdominal exam: Present: soft, normal bowel sounds. Absent: distended, tenderness, guarding, rebound, rigid Extremities exam: Present: normal inspection, full ROM, normal capillary refill. Absent: tenderness, pedal edema, joint swelling, calf tenderness Back exam: Present: normal inspection Neurological exam: Present: alert, oriented X3, CN II-XII intact Psychiatric exam: Present: normal affect, normal mood Skin exam: Present: warm, dry, intact, pallor (Some pallor). Absent: rash Course Vital Signs 03/23/21 03/23/21 14:05 17:00 Temperature 97.9 F Pulse Rate 66 63 Respiratory 16 18 Rate Blood Pressure 183/75 155/65 O2 Sat by Pulse 99 100 Oximetry - Reevaluation(s) Reevaluation #1: 03/23/21 18:14 The initial plan was to transfer the patient to [facility] for admission for evaluation by ASSOCIATE STORE MANAGER fredy cantor. June is no beds available at [facility] in the [facility] complex. I did discuss this with Jasmin the coordinator. The ultimate plan at this time is for outpatient evaluation and call 1 Niya Yi to get an appointment and speed up the evaluation process. I did a long discussion with the patient and friends that were with her regarding this she would like to go home and pursue this process. I also did discuss the events with Dr. Kathleen. She'll be discharged home with return parameters. Disposition Clinical Impression: Endometrial adenocarcinoma, Anemia, Vaginal bleeding Disposition: HOME SELF-CARE Condition: Stable Additional Instructions: Follow-up with Rosaura([phone]) Kd. Return of any issues. The follow up ASSOCIATE STORE MANAGER oncologist Dr. Zuniga Is patient prescribed a controlled substance at d/c from ED?: No Referrals: Delroy Lawrence DO [Primary Care Provider] - 1-2 days
[2021-03-23 18:56] VITALS: BP 158/77; PULSE 68
== END 2021-03-23 18:56 | disposition home or self-care (01) ==
LOC: EC 13:59
DX: C54.1 Malignant neoplasm of endometrium (principal); D64.9 Anemia, unspecified; I10 Essential (primary) hypertension; E11.9 Type 2 diabetes mellitus without complications; F41.9 Anxiety disorder, unspecified; F32.9 Major depressive disorder, single episode, unspecified
CPT/HCPCS: 36415; 85027; 99283

== ENCOUNTER → 2021-03-23 | Outpatient (CLI) | payer MEDICARE, BC ==
[2021-03-23 13:27] LABS: HCT 23.7 % (34.0-46.0); HGB 7.5 gm/dL (11.4-16.0); Hypochromasia Slight; MCH 31.9 pg (25.0-35.0); MCHC 31.4 g/dL (31.0-37.0); MCV 101.6 fL (80.0-100.0); Macrocytosis Slight; Mean Platelet Volume 9.2; Platelet Count 148 k/uL (150-450); RBC 2.33 m/uL (3.80-5.40); RDW 15.5 % (11.5-15.5); WBC 4.8 k/uL (3.8-10.6)
== END | disposition home or self-care (01) ==
LOC: LABWHC1 12:32
PROVIDERS: ATTEND Obstetrics & Gynecology
DX: C56.2 Malignant neoplasm of left ovary (principal)
CPT/HCPCS: 36415; 85027

== ENCOUNTER 2021-08-02 12:37 | Inpatient (IN) | payer MEDICARE, BC ==
[2021-08-02 12:59] LABS: Glucose,Whole Blood 58 mg/dL (75-99)
[2021-08-02] MEDS ORDERED: DEXTROSE 50% SYRINGE 50 ML IVP STA (13:02)
--- NOTE | 2021-08-02 13:07 | ED ---
General Adult HPI - General Chief complaint: Weakness Stated complaint: Fall Time Seen by Provider: 08/02/21 12:40 Source: patient, EMS, RN notes reviewed, old records reviewed Mode of arrival: EMS Limitations: no limitations - History of Present Illness Initial comments: This is a 66-year-old female who family became concerned about because she was not answering her phone so they sent a EMS crew out to see her she was found on the floor she had slid out of her chair. Patient was definitely decreased level of consciousness at this time they gave her a amp of D50 because her sugar was in the 40s and then they gave her some oral glucose. Patient became alert and oriented 4 but she does not remember details of the day or how she ended up on the ground. Patient does not complain of any pain. Patient is not complaining of chest pain or shortness of breath. Patient denies any fever chills per patient states she thinks the last time she took her insulin was last night and she may not have eaten well. Patient does not complain of any abdominal pain patient denies any recent nausea vomiting. Patient's heart rate was in the 40s per EMS. - Related Data Home Medications Medication Instructions Recorded Confirmed Allopurinol [Zyloprim] 100 mg PO DAILY 12/16/20 08/02/21 Carvedilol [Coreg] 25 mg PO BID 12/16/20 08/02/21 Atorvastatin [Lipitor] 40 mg PO HS 08/02/21 08/02/21 Insulin Glargine [Lantus Vial] 14 units SQ HS 08/02/21 08/02/21 Linagliptin [Tradjenta] 5 mg PO DAILY 08/02/21 08/02/21 Potassium Chloride ER [K-Dur 20] 20 meq PO DAILY 08/02/21 08/02/21 amLODIPine [Norvasc] 10 mg PO DAILY 08/02/21 08/02/21 hydrALAZINE HCL [Apresoline] 25 mg PO TID 08/02/21 08/02/21 lisinopriL [Zestril] 20 mg PO DAILY 08/02/21 08/02/21 sitaGLIPtin PHOSPHATE [Januvia] 25 mg PO DAILY 08/02/21 08/02/21 Allergies Allergy/AdvReac Type Severity Reaction Status Date / Time No Known Allergies Allergy Verified 08/02/21 12:44 Review of Systems ROS Statement: Those systems with pertinent positive or pertinent negative responses have been documented in the HPI. ROS Other: All systems not noted in ROS Statement are negative. Past Medical History Past Medical History: Diabetes Mellitus, Hypertension, Renal Disease Additional Past Medical History / Comment(s): fall 2 year ago, now walks with cane History of Any Multi-Drug Resistant Organisms: None Reported Past Surgical History: No Surgical Hx Reported Past Anesthesia/Blood Transfusion Reactions: No Reported Reaction Past Psychological History: Anxiety, Depression Smoking Status: Never smoker Past Alcohol Use History: None Reported Past Drug Use History: None Reported - Past Family History Father Family Medical History: Myocardial Infarction ([place]) Additional Family Medical History / Comment(s): father of [place] at 58 years old Mother Additional Family Medical History / Comment(s): mother of old age at 95 years old General Exam - General Exam Comments Initial Comments: GENERAL: Patient is well-developed and well-nourished. Patient is nontoxic and well- hydrated and is in mild distress. Patient's temperature is 89F. Patient ENT: Neck is soft and supple. No significant lymphadenopathy is noted. Oropharynx is clear. Moist mucous membranes. Neck has full range of motion without eliciting any pain. EYES: The sclera were anicteric and conjunctiva were pink and moist. Extraocular movements were intact and pupils were equal round and reactive to light. Eyelids were unremarkable. PULMONARY: Unlabored respirations. Good breath sounds bilaterally. No audible rales rhonchi or wheezing was noted. CARDIOVASCULAR: Patient is bradycardic at 45 and regular. ABDOMEN: Soft and nontender with normal bowel sounds. SKIN: Skin is clear with no lesions or rashes and otherwise unremarkable. NEUROLOGIC: Patient is alert and oriented x3. Cranial nerves II through XII are grossly intact. Motor and sensory are also intact. Normal speech, volume and content. Symmetrical smile. MUSCULOSKELETAL: Normal extremities with adequate strength and full range of motion. 2+ edema bilaterally LYMPHATICS: No significant lymphadenopathy is noted PSYCHIATRIC: Normal psychiatric evaluation. Limitations: no limitations Course Vital Signs 08/02/21 08/02/21 08/02/21 12:38 12:56 13:46 Temperature 89.6 F L 90.5 F L Pulse Rate 43 L 44 L Respiratory 18 18 Rate Blood Pressure 104/61 106/47 O2 Sat by Pulse 94 L 97 Oximetry 08/02/21 14:55 Temperature 93.0 F L Pulse Rate 44 L Respiratory 18 Rate Blood Pressure 97/51 O2 Sat by Pulse 94 L Oximetry Medical Decision Making - Medical Decision Making EKG shows a junctional bradycardia at 43 bpm QRS is 82 QT intervals 580 QTC is 490. Patient's EKG shows no ST segment elevation or depression. Chest x-ray shows pleural effusion on the right greater than left and signs of pulmonary edema. Patient was given D50 in the emergency department after which patient's blood sugar was 80 and 2 consecutive results. Patient also was put on a blanketrol and a bear hugger and patient's temperature was slowly increasing. Dr. Harris was contacted he agreed to admit the patient admitted the patient Dr. Castellanos came down and saw the patient in the emergency department. - Lab Data Result diagrams: 08/02/21 13:13 08/02/21 13:05 Lab Results 08/02/21 08/02/21 08/02/21 Range/Units 12:58 13:05 13:05 WBC (3.8-10.6) k/uL RBC (3.80-5.40) m/uL Hgb (11.4-16.0) gm/dL Hct (34.0-46.0) % MCV (80.0-100.0) fL MCH (25.0-35.0) pg MCHC (31.0-37.0) g/dL RDW (11.5-15.5) % Plt Count (150-450) k/uL MPV Neutrophils % % Lymphocytes % % Monocytes % % Eosinophils % % Basophils % % Neutrophils # (1.3-7.7) k/uL Lymphocytes # (1.0-4.8) k/uL Monocytes # (0-1.0) k/uL Eosinophils # (0-0.7) k/uL Basophils # (0-0.2) k/uL Hypochromasia Anisocytosis Macrocytosis PT (9.0-12.0) sec INR (<1.2) APTT (22.0-30.0) sec Sodium 137 (137-145) mmol/L Potassium 5.1 (3.5-5.1) mmol/L Chloride 108 H (98-107) mmol/L Carbon Dioxide 21 L (22-30) mmol/L Anion Gap 8 mmol/L BUN 75 H (7-17) mg/dL Creatinine 2.21 H (0.52-1.04) mg/dL Est GFR (CKD-EPI)AfAm 26 (>60 ml/min/1.73 sqM) Est GFR (CKD-EPI)NonAf 23 (>60 ml/min/1.73 sqM) Glucose 56 L (74-99) mg/dL POC Glucose (mg/dL) 58 L (75-99) mg/dL POC Glu Access Service Representative ID Pierce Hopson Plasma Lactic Acid Octavio <0.5 L (0.7-2.0) mmol/L Calcium 8.1 L (8.4-10.2) mg/dL Total Bilirubin 0.5 (0.2-1.3) mg/dL AST 24 (14-36) U/L ALT 12 (4-34) U/L Alkaline Phosphatase 118 (38-126) U/L Troponin I (0.000-0.034) ng/mL Total Protein 6.3 (6.3-8.2) g/dL Albumin 3.0 L (3.5-5.0) g/dL Urine Color Urine Appearance (Clear) Urine pH (5.0-8.0) Ur Specific [place] (1.001-1.035) Urine Protein (Negative) Urine Glucose (UA) (Negative) Urine Ketones (Negative) Urine Blood (Negative) Urine Nitrite (Negative) Urine Bilirubin (Negative) Urine Urobilinogen (<2.0) mg/dL Ur Leukocyte Esterase (Negative) Urine RBC (0-5) /hpf Urine WBC (0-5) /hpf Ur Squamous Epith Cells (0-4) /hpf Amorphous Sediment (None) /hpf Urine Bacteria (None) /hpf Hyaline Casts (0-2) /lpf Urine Mucus (None) /hpf 08/02/21 08/02/21 08/02/21 Range/Units 13:05 13:13 13:13 WBC 4.1 (3.8-10.6) k/uL RBC 2.99 L (3.80-5.40) m/uL Hgb 9.2 L (11.4-16.0) gm/dL Hct 31.1 L (34.0-46.0) % MCV 104.1 H (80.0-100.0) fL MCH 30.7 (25.0-35.0) pg MCHC 29.5 L (31.0-37.0) g/dL RDW 16.9 H (11.5-15.5) % Plt Count 208 (150-450) k/uL MPV 8.3 Neutrophils % 77 % Lymphocytes % 13 % Monocytes % 5 % Eosinophils % 3 % Basophils % 1 % Neutrophils # 3.2 (1.3-7.7) k/uL Lymphocytes # 0.5 L (1.0-4.8) k/uL Monocytes # 0.2 (0-1.0) k/uL Eosinophils # 0.1 (0-0.7) k/uL Basophils # 0.0 (0-0.2) k/uL Hypochromasia Marked Anisocytosis Slight Macrocytosis Moderate PT (9.0-12.0) sec INR (<1.2) APTT (22.0-30.0) sec Sodium (137-145) mmol/L Potassium (3.5-5.1) mmol/L Chloride (98-107) mmol/L Carbon Dioxide (22-30) mmol/L Anion Gap mmol/L BUN (7-17) mg/dL Creatinine (0.52-1.04) mg/dL Est GFR (CKD-EPI)AfAm (>60 ml/min/1.73 sqM) Est GFR (CKD-EPI)NonAf (>60 ml/min/1.73 sqM) Glucose (74-99) mg/dL POC Glucose (mg/dL) (75-99) mg/dL POC Glu Access Service Representative ID Plasma Lactic Acid Octavio (0.7-2.0) mmol/L Calcium (8.4-10.2) mg/dL Total Bilirubin (0.2-1.3) mg/dL AST (14-36) U/L ALT (4-34) U/L Alkaline Phosphatase (38-126) U/L Troponin I <0.012 (0.000-0.034) ng/mL Total Protein (6.3-8.2) g/dL Albumin (3.5-5.0) g/dL Urine Color Yellow Urine Appearance Clear (Clear) Urine pH 5.0 (5.0-8.0) Ur Specific [place] 1.014 (1.001-1.035) Urine Protein 1+ H (Negative) Urine Glucose (UA) Negative (Negative) Urine Ketones Negative (Negative) Urine Blood Negative (Negative) Urine Nitrite Negative (Negative) Urine Bilirubin Negative (Negative) Urine Urobilinogen <2.0 (<2.0) mg/dL Ur Leukocyte Esterase Negative (Negative) Urine RBC <1 (0-5) /hpf Urine WBC 2 (0-5) /hpf Ur Squamous Epith Cells 1 (0-4) /hpf Amorphous Sediment Rare H (None) /hpf Urine Bacteria Rare H (None) /hpf Hyaline Casts 63 H (0-2) /lpf Urine Mucus Rare H (None) /hpf 08/02/21 08/02/21 08/02/21 Range/Units 13:30 13:38 14:12 WBC (3.8-10.6) k/uL RBC (3.80-5.40) m/uL Hgb (11.4-16.0) gm/dL Hct (34.0-46.0) % MCV (80.0-100.0) fL MCH (25.0-35.0) pg MCHC (31.0-37.0) g/dL RDW (11.5-15.5) % Plt Count (150-450) k/uL MPV Neutrophils % % Lymphocytes % % Monocytes % % Eosinophils % % Basophils % % Neutrophils # (1.3-7.7) k/uL Lymphocytes # (1.0-4.8) k/uL Monocytes # (0-1.0) k/uL Eosinophils # (0-0.7) k/uL Basophils # (0-0.2) k/uL Hypochromasia Anisocytosis Macrocytosis PT 11.9 (9.0-12.0) sec INR 1.1 (<1.2) APTT 26.3 (22.0-30.0) sec Sodium (137-145) mmol/L Potassium (3.5-5.1) mmol/L Chloride (98-107) mmol/L Carbon Dioxide (22-30) mmol/L Anion Gap mmol/L BUN (7-17) mg/dL Creatinine (0.52-1.04) mg/dL Est GFR (CKD-EPI)AfAm (>60 ml/min/1.73 sqM) Est GFR (CKD-EPI)NonAf (>60 ml/min/1.73 sqM) Glucose (74-99) mg/dL POC Glucose (mg/dL) 80 81 (75-99) mg/dL POC Glu Access Service Representative ID Pierce Hopson Matthew Plasma Lactic Acid Octavio (0.7-2.0) mmol/L Calcium (8.4-10.2) mg/dL Total Bilirubin (0.2-1.3) mg/dL AST (14-36) U/L ALT (4-34) U/L Alkaline Phosphatase (38-126) U/L Troponin I (0.000-0.034) ng/mL Total Protein (6.3-8.2) g/dL Albumin (3.5-5.0) g/dL Urine Color Urine Appearance (Clear) Urine pH (5.0-8.0) Ur Specific [place] (1.001-1.035) Urine Protein (Negative) Urine Glucose (UA) (Negative) Urine Ketones (Negative) Urine Blood (Negative) Urine Nitrite (Negative) Urine Bilirubin (Negative) Urine Urobilinogen (<2.0) mg/dL Ur Leukocyte Esterase (Negative) Urine RBC (0-5) /hpf Urine WBC (0-5) /hpf Ur Squamous Epith Cells (0-4) /hpf Amorphous Sediment (None) /hpf Urine Bacteria (None) /hpf Hyaline Casts (0-2) /lpf Urine Mucus (None) /hpf Critical Care Time Critical Care Time: Yes Total Critical Care Time: 35 Disposition Clinical Impression: Altered mental status, Hypothermia, Hypoglycemia, Bradycardia Disposition: ADMITTED IP TO THIS HOSP Referrals: None,Stated [REFERRING] - 1-2 days Time of Disposition: 14:56
[2021-08-02 13:32] LABS: Calcium 8.1 mg/dL (8.4-10.2); Potassium 5.1 mmol/L (3.5-5.1); Total Bilirubin 0.5 mg/dL (0.2-1.3); Total Protein 6.3 g/dL (6.3-8.2)
[2021-08-02 13:40] LABS: Glucose,Whole Blood 80 mg/dL (75-99)
[2021-08-02 13:41] LABS: Anisocytosis Slight; Basophils % (A) 1 %; Eosinophils # (A) 0.1 k/uL (0-0.7); Eosinophils % (A) 3 %; HCT 31.1 % (34.0-46.0); HGB 9.2 gm/dL (11.4-16.0); Hypochromasia Marked; Lymphocytes # (A) 0.5 k/uL (1.0-4.8); Lymphocytes % (A) 13 %; MCH 30.7 pg (25.0-35.0); MCHC 29.5 g/dL (31.0-37.0); MCV 104.1 fL (80.0-100.0); Macrocytosis Moderate; Mean Platelet Volume 8.3; Monocytes # (A) 0.2 k/uL (0-1.0); Monocytes % (A) 5 %; Neutrophils # (A) 3.2 k/uL (1.3-7.7); Neutrophils % (A) 77 %; Platelet Count 208 k/uL (150-450); RBC 2.99 m/uL (3.80-5.40); RDW 16.9 % (11.5-15.5); WBC 4.1 k/uL (3.8-10.6)
[2021-08-02 13:58] LABS: INR 1.1 (<1.2); Partial Thromboplastin Time 26.3 sec (22.0-30.0); Prothrombin Time 11.9 sec (9.0-12.0)
--- NOTE | 2021-08-02 14:00 | XR ---
EXAMINATION TYPE: XR chest 1V portable DATE OF EXAM: 08/02/2021 COMPARISON: Chest x-ray March 01, 2021. CT chest March 02, 2021 HISTORY: Weakness, fall injury. TECHNIQUE: Single AP portable frontal semiupright view of the chest is obtained. FINDINGS: There is persistent cardiomegaly with new small to moderate-sized bilateral pleural effusi ons and moderate central edema bilaterally. The osseous structures are intact. IMPRESSION: Suspect CHF exacerbation. Correlate clinically.
[2021-08-02 14:01] LABS: Amorphous Sediment,Urine Rare /hpf; Appearance,Urine Clear (Clear); Bacteria,Urine Rare /hpf; Bilirubin,Urine Negative (Negative); Blood,Urine Negative (Negative); Color,Urine Yellow; Glucose,Urine (UA) Negative (Negative); Hyaline Casts,Urine 63 /lpf (0-2); Ketones,Urine Negative (Negative); Leukocyte Esterase,Urine Negative (Negative); Mucus,Urine Rare /hpf; Nitrite,Urine Negative (Negative); Protein,Urine 1+ (Negative); RBC,Urine <1 /hpf (0-5); Specific Gravity,Urine 1.014 (1.001-1.035); Squamous Epithelial Cell,Urine 1 /hpf (0-4); Urobilinogen,Urine <2.0 mg/dL (<2.0); WBC,Urine 2 /hpf (0-5)
[2021-08-02 14:14] LABS: Glucose,Whole Blood 81 mg/dL (75-99)
[2021-08-02 15:26] LABS: Glucose,Whole Blood 74 mg/dL (75-99)
[2021-08-02 18:25] LABS: Glucose,Whole Blood 75 mg/dL (75-99)
[2021-08-02 21:32] LABS: Glucose,Whole Blood 94 mg/dL (75-99)
[2021-08-02] MEDS ORDERED: SODIUM CHLORIDE 0.9% 1,000 ML IV SCH (23:45)
[2021-08-03] MEDS ORDERED: FUROSEMIDE 10 MG/ML 2 ML VIAL IV ONE (00:08)
--- NOTE | 2021-08-03 00:14 | P.HPIM ---
History of Present Illness H&P Date: 08/02/21 Chief Complaint: fall Patient is a 66-year-old female with a known history of pericardial effusion, CKD stage IV, hypertension, diabetes type 2 on insulin and anxiety/depression, previous history of fall and currently walks with cane was brought to the hospital by EMS. Patient was found on the floor as she slid out of her chair. Patient has not been answering her phone and family was concerned and EMS was called. Patient was found to be hypoglycemic with blood sugar in 40s and low was given oral glucose and D50. Patient's mentation did improve and is currently awake alert and oriented x4. Patient was also found to be bradycardic with heart rate in 40s and hypothermic. On admission temperature was 94.5 and heart rate 45 pulse ox 98% on 2 L oxygen via nasal cannula. Otherwise patient denied any complaints of pain. No chest pain or shortness breath. No cough or sputum production. Denied any recent illnesses. No headache or dizziness or lightheadedness. She could not recollect how she fell down. Laboratory data showed no BC 4.1 hemoglobin 9.2 MCV 104.1 and platelets 208 Sodium 137 potassium 5.1 chloride 108 bicarb is 21 BUN 75 and creatinine 2.21 and blood sugar is 56 lactic acid 0.5 calcium 8.1 and albumin 3.0 UA negative for infection COVID-19 PCR not detected. Chest x-ray showed suspect CHF exacerbation. EKG showed junctional bradycardia. Low voltage QRS. Review of Systems Constitutional: Patient denies any fever or chills . No generalized weakness or weight loss. Abdomen: Patient denied nausea vomiting and diarrhea and abdominal pain. Cardiovascular: Patient denies any chest pain or short of breath no palp itations. Respiratory: patient denied any cough or sputum production. No shortness of breath Neurologic: Patient denied any numbness or tingling headache. Musculoskeletal: Patient denies any complaints of joint swelling or deformity. Skin: Negative Psychiatric: Negative Endocrine: No heat or cold intolerance. No recent weight gain. Genitourinary: No dysuria or hematuria. All other 14 point ROS negative except the above Past Medical History Past Medical History: Diabetes Mellitus, Hypertension, Renal Disease Additional Past Medical History / Comment(s): fall 2 year ago, now walks with cane History of Any Multi-Drug Resistant Organisms: None Reported Past Surgical History: No Surgical Hx Reported Past Anesthesia/Blood Transfusion Reactions: No Reported Reaction Past Psychological History: Anxiety, Depression Smoking Status: Never smoker Past Alcohol Use History: None Reported Past Drug Use History: None Reported - Past Family History Father Family Medical History: Myocardial Infarction ([place]) Additional Family Medical History / Comment(s): father of [place] at 58 years old Mother Additional Family Medical History / Comment(s): mother of old age at 95 years old Medications and Allergies Home Medications Medication Instructions Recorded Confirmed Type Allopurinol [Zyloprim] 100 mg PO DAILY 12/16/20 08/02/21 History Carvedilol [Coreg] 25 mg PO BID 12/16/20 08/02/21 History Atorvastatin [Lipitor] 40 mg PO HS 08/02/21 08/02/21 History Insulin Glargine [Lantus Vial] 14 units SQ HS 08/02/21 08/02/21 History Linagliptin [Tradjenta] 5 mg PO DAILY 08/02/21 08/02/21 History Potassium Chloride ER [K-Dur 20] 20 meq PO DAILY 08/02/21 08/02/21 History amLODIPine [Norvasc] 10 mg PO DAILY 08/02/21 08/02/21 History hydrALAZINE HCL [Apresoline] 25 mg PO TID 08/02/21 08/02/21 History lisinopriL [Zestril] 20 mg PO DAILY 08/02/21 08/02/21 History sitaGLIPtin PHOSPHATE [Januvia] 25 mg PO DAILY 08/02/21 08/02/21 History Allergies Allergy/AdvReac Type Severity Reaction Status Date / Time No Known Allergies Allergy Verified 08/02/21 12:44 Physical Exam Vitals: Vital Signs Temp Pulse Resp BP Pulse Ox 08/02/21 21:34 98.1 F 61 16 119/51 94 L 08/02/21 18:16 98.1 F 60 18 100/78 94 L 08/02/21 17:14 97.0 F L 60 18 106/55 94 L 08/02/21 15:19 94.5 F L 45 L 18 106/55 98 08/02/21 14:55 93.0 F L 44 L 18 97/51 94 L 08/02/21 13:46 90.5 F L 44 L 18 106/47 97 08/02/21 12:56 89.6 F L 08/02/21 12:38 43 L 18 104/61 94 L Intake and Output 08/02/21 08/02/21 08/02/21 06:59 14:59 22:59 Other: Weight 113.398 kg PHYSICAL EXAMINATION: Patient is lying in the bed comfortably, no acute distress, awake alert and oriented.. HEENT: Normocephalic. Neck is supple. Pupils reactive. Nostrils clear. Oral cavity is moist. Neck reveals no JVD, carotid bruits, or thyromegaly. CHEST EXAMINATION: Trachea is central. Symmetrical expansion. basilar crackles. no wheezing.. CARDIAC: Normal S1, S2 with no gallops. No murmurs ABDOMEN: Soft. Bowel sounds normal. No organomegaly. No abdominal bruits. Extremities: 2+ edema. No clubbing or cyanosis Neurologically awake, alert, oriented x3 with well-coordinated movements. No focal deficits noted Skin: No rash or skin lesions. Psychiatric: Cooperative. Nonsuicidal Musculoskeletal: No joint swelling or deformity. Normal range of motion. Results CBC & Chem 7: 08/03/21 07:43 08/03/21 07:43 Labs: Abnormal Lab Results - Last 24 Hours (Table) 08/02/21 08/02/21 08/02/21 Range/Units 12:58 13:05 13:05 RBC (3.80-5.40) m/uL Hgb (11.4-16.0) gm/dL Hct (34.0-46.0) % MCV (80.0-100.0) fL MCHC (31.0-37.0) g/dL RDW (11.5-15.5) % Lymphocytes # (1.0-4.8) k/uL Chloride 108 H (98-107) mmol/L Carbon Dioxide 21 L (22-30) mmol/L BUN 75 H (7-17) mg/dL Creatinine 2.21 H (0.52-1.04) mg/dL Glucose 56 L (74-99) mg/dL POC Glucose (mg/dL) 58 L (75-99) mg/dL Plasma Lactic Acid Octavio <0.5 L (0.7-2.0) mmol/L Calcium 8.1 L (8.4-10.2) mg/dL Albumin 3.0 L (3.5-5.0) g/dL Urine Protein (Negative) Amorphous Sediment (None) /hpf Urine Bacteria (None) /hpf Hyaline Casts (0-2) /lpf Urine Mucus (None) /hpf 08/02/21 08/02/21 08/02/21 Range/Units 13:13 13:13 15:23 RBC 2.99 L (3.80-5.40) m/uL Hgb 9.2 L (11.4-16.0) gm/dL Hct 31.1 L (34.0-46.0) % MCV 104.1 H (80.0-100.0) fL MCHC 29.5 L (31.0-37.0) g/dL RDW 16.9 H (11.5-15.5) % Lymphocytes # 0.5 L (1.0-4.8) k/uL Chloride (98-107) mmol/L Carbon Dioxide (22-30) mmol/L BUN (7-17) mg/dL Creatinine (0.52-1.04) mg/dL Glucose (74-99) mg/dL POC Glucose (mg/dL) 74 L (75-99) mg/dL Plasma Lactic Acid Octavio (0.7-2.0) mmol/L Calcium (8.4-10.2) mg/dL Albumin (3.5-5.0) g/dL Urine Protein 1+ H (Negative) Amorphous Sediment Rare H (None) /hpf Urine Bacteria Rare H (None) /hpf Hyaline Casts 63 H (0-2) /lpf Urine Mucus Rare H (None) /hpf Assessment and Plan Assessment: Altered mental status due to hypoglycemia resolved now. Junctional bradycardia Acute on chronic CHF with respiratory dysfunction. Acute on chronic kidney disease stage IV History of pericardial effusion Hypothermia improved with [facility] Hypertension.. Diabetes type 2 insulin-dependent DVT prophylaxis with heparin subcu Plan: Patient was given a dose of D50 in the ER. Blood sugar did improve. Patient is currently on Levemir 14 units at bedtime along with sitagliptin and linagliptin also at home. Continue with insulin sliding scale and follow-up CBC . Coreg is on hold due to bradycardia. Cardiology was consulted due to previous history of pericardial effusion and low voltage criteria. TSH level will be ordered. Patient will be given a dose of IV Lasix and follow-up respiratory status closely. Continue with oxygen supplementation. Prognosis is guarded. Time with Patient: Greater than 30
[2021-08-03 01:10] LABS: Glucose,Whole Blood 90 mg/dL (75-99)
[2021-08-03 03:28] LABS: Glucose,Whole Blood 105 mg/dL (75-99)
[2021-08-03 05:18] LABS: Glucose,Whole Blood 121 mg/dL (75-99)
[2021-08-03] MEDS: INSULIN ASPART (NovoLOG) 100 UNIT/ML VIAL SQ SCH ×4 (07:04→20:54)
[2021-08-03 07:05] LABS: Glucose,Whole Blood 108 mg/dL (75-99)
[2021-08-03 07:14] LABS: Glucose,Whole Blood 118 mg/dL (75-99)
[2021-08-03] MEDS: allopurinoL 100 MG TAB PO SCH (08:43)
[2021-08-03] MEDS: HEPARIN SODIUM,PORCINE/PF 5,000 UNIT/0.5 ML SYRINGE SQ SCH ×3 (08:43→23:13)
[2021-08-03 08:46] LABS: African American GFR (CKD) 24 (>60 ml/min/1.73 sqM); Anion Gap 5 mmol/L; Anisocytosis Slight; Basophils % (A) 1 %; Blood Urea Nitrogen 74 mg/dL (7-17); Calcium 7.9 mg/dL (8.4-10.2); Carbon Dioxide 21 mmol/L (22-30); Chloride 110 mmol/L (98-107); Eosinophils # (A) 0.1 k/uL (0-0.7); Eosinophils % (A) 2 %; Glucose 117 mg/dL (74-99); HCT 29.4 % (34.0-46.0); HGB 8.5 gm/dL (11.4-16.0); Hypochromasia Marked; Lymphocytes # (A) 0.6 k/uL (1.0-4.8); Lymphocytes % (A) 12 %; MCH 31.4 pg (25.0-35.0); MCV 108.3 fL (80.0-100.0); Macrocytosis Marked; Mean Platelet Volume 8.8; Monocytes # (A) 0.3 k/uL (0-1.0); Monocytes % (A) 6 %; Neutrophils # (A) 4.1 k/uL (1.3-7.7); Neutrophils % (A) 78 %; Non-African American GFR(CKD) 21 (>60 ml/min/1.73 sqM); Platelet Count 198 k/uL (150-450); Potassium 5.2 mmol/L (3.5-5.1); RBC 2.72 m/uL (3.80-5.40); RDW 16.7 % (11.5-15.5); Sodium 136 mmol/L (137-145); WBC 5.2 k/uL (3.8-10.6)
[2021-08-03] MEDS: FUROSEMIDE 10 MG/ML 4 ML VIAL IV SCH ×3 (08:51→23:13)
--- NOTE | 2021-08-03 10:54 | P.CRDCN ---
History of Present Illness Consult date: 08/03/21 History of present illness: HISTORY OF PRESENT ILLNESS: This is a 66 year old female with a past medical history significant for uterine cancer with previous radiation, chronic diarrhea since having radiation, bilateral lymphedema, severe pulmonary hypertension, chronic diastolic congestive heart failure, chronic kidney disease, chronic pericardial effusion, hypertension, and hyperlipidemia. Patient follows in the office with Dr. Li. We have been asked to see the patient in consultation for bradycardia and congestive heart failure. Patient examined at the bedside. Patient was brought to the hospital per EMS yesterday after her family was unable to get a hold of her. EMS found the patient unresponsive on the floor of her home. Darius stewart was found to be bradycardic with a heart rate in the 40s. She was also found to be hypoglycemic with a blood sugar in the 40s. This morning the patient is alert and oriented 3. Patient does not remember much of what happened yesterday. She does state that she did not take any of her medications yesterday and does not think that she ate anything. She does not remember feeling dizzy or lightheaded. She denied having any chest pain or pressure. Denies shortness of breath. She does report increased lower extremity edema over the past week. She does believe she has gained weight secondary to fluid retention however she has not weighed herself. EKG reveals sinus bradycardia with a heart rate in the 40s. Chest xray suspect CHF exacerbation. Persistent cardiomegaly with new small to moderate sized bilateral pleural effusions and moderate central edema bilaterally. Laboratory data: WBC 5.2. Hemoglobin 8.5. Platelet count 198. Sodium 136. Potassium 5.2. BUN 74. Creatinine 2.36. ProBNP 8200. TSH 3.150. Current home cardiac medications include carvedilol 25 mg twice a day, lisinopril 20 mg daily, amlodipine 10 mg daily, hydralazine 25 mg 3 times a day, atorvastatin 40 mg at night, Bumex 3 mg in the morning and 2 mg in the afternoon Most recent echocardiogram obtained in January 2021 revealed ejection fraction 60-65%, mild aortic regurgitation, mild mitral regurgitation, mild tricuspid regurgitation, severe pulmonary hypertension with RVSP of 63.01 and mild to mod erate generalized pericardial effusion Cardiac catheterization history: Patient reports she had a right heart catheterization performed in 2020 at [facility] [place]. Records of this are not available at the time of this dictation. REVIEW OF SYSTEMS: At the time of my exam: CONSTITUTIONAL: Denies fever or chills. HEENT: Denies blurred vision, vision changes, or eye pain. Denies hemoptysis CARDIOVASCULAR: Denies chest pain. Denies orthopnea. Denies PND. Denies palpitations RESPIRATORY: Denies shortness of breath. GASTROINTESTINAL: Denies abdominal pain. Denies nausea or vomiting. HEMATOLOGIC: Denies bleeding disorders. GENITOURINARY: Denies any blood in urine. SKIN: Denies pruitis. Denies rash. PHYSICAL EXAM: VITAL SIGNS: Reviewed. GENERAL: Well-developed in no acute distress. HEENT: Head is normocephalic. Pupils are equal, round. Sclerae anicteric. Mucous membranes of the mouth are moist. Neck supple. No JVD or thyromegaly LUNGS: Respirations even and unlabored. Lungs diminished with crackles at the bases. HEART: Regular rate and rhythm. S1 and S2 heard. ABDOMEN: Soft. Nondistended. Nontender. EXTREMITIES: Normal range of motion. No clubbing or cyanosis. Peripheral pulses intact. 3+ bilateral lower extremity edema NEUROLOGIC: Awake and alert. Oriented x 3. ASSESSMENT: Bradycardia Hypoglycemia Acute on chronic diastolic congestive heart failure Acute on chronic kidney disease Chronic pericardial effusion Hypertension Hyperlipidemia History of lymphedema Chronic anemia History of uterine cancer with radiation History of chronic diarrhea since radiation treatments PLAN: Obtain 2-D echo to assess cardiac structure and function Bradycardia appears to be resolving. May have been secondary to hypoglycemia Continue to hold carvedilol. Continue telemetry monitoring. Patient's blood pressures are on the lower side this morning with a systolic around 100. Will hold patient's antihypertensive medications to allow for IV diuresis. Continue to monitor blood pressure and reinitiate and hypertensive medications as tolerated. TSH checked and within normal limits Begin IV Lasix 40 mg every 8 hours Accurate I&O Daily weights Patient may benefit from SGLT2 inhibitor such as Jardiance secondary to diastolic HF. This may be discussed on an outpatient basis. Obtain records from cardiac catheterization performed in 2020 at [facility] Further recommendations pending patient course Nurse practitioner note has been reviewed by physician. Signing provider agrees with the documented findings, assessment, and plan of care. Past Medical History Past Medical History: Diabetes Mellitus, Hypertension, Renal Disease Additional Past Medical History / Comment(s): fall 2 year ago, now walks with cane History of Any Multi-Drug Resistant Organisms: None Reported Past Surgical History: No Surgical Hx Reported Past Anesthesia/Blood Transfusion Reactions: No Reported Reaction Past Psychological History: Anxiety, Depression Smoking Status: Never smoker Past Alcohol Use History: None Reported Past Drug Use History: None Reported - Past Family History Father Family Medical History: Myocardial Infarction ([place]) Additional Family Medical History / Comment(s): father of [place] at 58 years old Mother Additional Family Medical History / Comment(s): mother of old age at 95 years old Medications and Allergies Home Medications Medication Instructions Recorded Confirmed Type Allopurinol [Zyloprim] 100 mg PO DAILY 12/16/20 08/02/21 History Carvedilol [Coreg] 25 mg PO BID 12/16/20 08/02/21 History Atorvastatin [Lipitor] 40 mg PO HS 08/02/21 08/02/21 History Insulin Glargine [Lantus Vial] 14 units SQ HS 08/02/21 08/02/21 History Linagliptin [Tradjenta] 5 mg PO DAILY 08/02/21 08/02/21 History Potassium Chloride ER [K-Dur 20] 20 meq PO DAILY 08/02/21 08/02/21 History amLODIPine [Norvasc] 10 mg PO DAILY 08/02/21 08/02/21 History hydrALAZINE HCL [Apresoline] 25 mg PO TID 08/02/21 08/02/21 History lisinopriL [Zestril] 20 mg PO DAILY 08/02/21 08/02/21 History sitaGLIPtin PHOSPHATE [Januvia] 25 mg PO DAILY 08/02/21 08/02/21 History Allergies Allergy/AdvReac Type Severity Reaction Status Date / Time No Known Allergies Allergy Verified 08/02/21 12:44 Physical Exam Vitals: Vital Signs Temp Pulse Pulse Resp BP BP Pulse Ox 08/03/21 04:00 98.0 F 60 18 102/50 93 L 08/03/21 02:00 62 16 08/02/21 22:56 98.1 F 62 16 113/57 95 08/02/21 21:34 98.1 F 61 16 119/51 94 L 08/02/21 18:16 98.1 F 60 18 100/78 94 L 08/02/21 17:14 97.0 F L 60 18 106/55 94 L 08/02/21 15:19 94.5 F L 45 L 18 106/55 98 08/02/21 14:55 93.0 F L 44 L 18 97/51 94 L 08/02/21 13:46 90.5 F L 44 L 18 106/47 97 08/02/21 12:56 89.6 F L 08/02/21 12:38 43 L 18 104/61 94 L Intake and Output 08/02/21 08/02/21 08/03/21 14:59 22:59 06:59 Intake Total 500 Output Total 200 Balance 300 Intake: Oral 500 Output: Urine 200 Other: Voiding Method Indwelling Catheter Weight 113.398 kg 113.398 kg Results 08/03/21 07:43 08/03/21 07:43 Cardiac Enzymes 08/02/21 08/02/21 Range/Units 13:05 13:05 AST 24 (14-36) U/L Troponin I <0.012 (0.000-0.034) ng/mL Coagulation 08/02/21 Range/Units 13:30 PT 11.9 (9.0-12.0) sec APTT 26.3 (22.0-30.0) sec CBC 08/02/21 Range/Units 13:13 WBC 4.1 (3.8-10.6) k/uL RBC 2.99 L (3.80-5.40) m/uL Hgb 9.2 L (11.4-16.0) gm/dL Hct 31.1 L (34.0-46.0) % Plt Count 208 (150-450) k/uL Comprehensive Metabolic Panel 08/02/21 Range/Units 13:05 Sodium 137 (137-145) mmol/L Potassium 5.1 (3.5-5.1) mmol/L Chloride 108 H (98-107) mmol/L Carbon Dioxide 21 L (22-30) mmol/L BUN 75 H (7-17) mg/dL Creatinine 2.21 H (0.52-1.04) mg/dL Glucose 56 L (74-99) mg/dL Calcium 8.1 L (8.4-10.2) mg/dL AST 24 (14-36) U/L ALT 12 (4-34) U/L Alkaline Phosphatase 118 (38-126) U/L Total Protein 6.3 (6.3-8.2) g/dL Albumin 3.0 L (3.5-5.0) g/dL Current Medications Generic Name Dose Route Start Last Admin Trade Name Freq PRN Reason Stop Dose Admin Allopurinol 100 mg 08/03/21 09:00 Allopurinol 100 Mg Tab PO DAILY [facility] Atorvastatin Calcium 40 mg 08/03/21 21:00 Atorvastatin 40 Mg Tab PO HS [facility] Heparin Sodium (Porcine) 5,000 unit 08/03/21 08:00 Heparin Sodium,Porcine/Pf 5,000 Unit/0.5 Ml Syringe SQ Q8HR [facility] Insulin Aspart 0 unit 08/03/21 07:30 Insulin Aspart (Novolog) 100 Unit/Ml Vial SQ ACHS [facility] Protocol Intake and Output 08/02/21 08/02/21 08/03/21 14:59 22:59 06:59 Intake Total 500 Output Total 200 Balance 300 Intake: Oral 500 Output: Urine 200 Other: Voiding Method Indwelling Catheter Weight 113.398 kg 113.398 kg Patient Weight 08/03/21 06:59 Weight 113.398 kg 08/02/21 13:13 08/02/21 13:05
--- NOTE | 2021-08-03 12:50 | P.NPCON ---
History of Present Illness - Reason for Consult acute renal failure, chronic renal failure - History of Present Illness Reason for consultation: Acute kidney injury and chronic kidney disease History of present illness: Patient is a 66-year-old female seen in consultation for acute kidney injury on chronic kidney disease. Patient has chronic kidney disease stage IV with baseline creatinine in the range of 1.62 secondary to diabetic kidney disease. Patient was brought to the hospital due to hypoglycemia. Currently she is awake and alert. Blood sugars have improved. No vomiting or diarrhea. No chest pain or shortness of breath. She has history of diastolic CHF with severe pulmonary hypertension. Chest x-ray suggestive of fluid overload. She is maintained on IV Lasix 40 mg 3 times daily. Admits to good urine output. Denies hematuria. No fever or chills. No cough. Blood pressure stable. Denies use of nonsteroidals. Heart rate is now in the 60s. Coreg is held. Vital signs are stable. General: The patient appeared well nourished and normally developed. HEENT: Head exam is unremarkable. LUNGS: Breath sounds decreased. HEART: Rate and Rhythm are regular. ABDOMEN: Soft, obese. EXTREMITITES: 1+ edema. Lower extremity is wrapped. Past Medical History Past Medical History: Diabetes Mellitus, Hypertension, Renal Disease Additional Past Medical History / Comment(s): fall 2 year ago, now walks with cane History of Any Multi-Drug Resistant Organisms: None Reported Past Surgical History: No Surgical Hx Reported Past Anesthesia/Blood Transfusion Reactions: No Reported Reaction Past Psychological History: Anxiety, Depression Smoking Status: Never smoker Past Alcohol Use History: None Reported Past Drug Use History: None Reported - Past Family History Father Family Medical History: Myocardial Infarction ([place]) Additional Family Medical History / Comment(s): father of [place] at 58 years old Mother Additional Family Medical History / Comment(s): mother of old age at 95 years old Medications and Allergies Home Medications Medication Instructions Recorded Confirmed Type Allopurinol [Zyloprim] 100 mg PO DAILY 12/16/20 08/02/21 History Carvedilol [Coreg] 25 mg PO BID 12/16/20 08/02/21 History Atorvastatin [Lipitor] 40 mg PO HS 08/02/21 08/02/21 History Insulin Glargine [Lantus Vial] 14 units SQ HS 08/02/21 08/02/21 History Linagliptin [Tradjenta] 5 mg PO DAILY 08/02/21 08/02/21 History Potassium Chloride ER [K-Dur 20] 20 meq PO DAILY 08/02/21 08/02/21 History amLODIPine [Norvasc] 10 mg PO DAILY 08/02/21 08/02/21 History hydrALAZINE HCL [Apresoline] 25 mg PO TID 08/02/21 08/02/21 History lisinopriL [Zestril] 20 mg PO DAILY 08/02/21 08/02/21 History sitaGLIPtin PHOSPHATE [Januvia] 25 mg PO DAILY 08/02/21 08/02/21 History Allergies Allergy/AdvReac Type Severity Reaction Status Date / Time No Known Allergies Allergy Verified 08/02/21 12:44 Physical Exam Vitals: Vital Signs Temp Pulse Pulse Resp BP BP Pulse Ox 08/03/21 12:00 61 16 116/56 96 08/03/21 08:40 98.0 F 63 16 114/58 95 08/03/21 04:00 98.0 F 60 18 102/50 93 L 08/03/21 02:00 62 16 08/02/21 22:56 98.1 F 62 16 113/57 95 08/02/21 21:34 98.1 F 61 16 119/51 94 L 08/02/21 18:16 98.1 F 60 18 100/78 94 L 08/02/21 17:14 97.0 F L 60 18 106/55 94 L 08/02/21 15:19 94.5 F L 45 L 18 106/55 98 08/02/21 14:55 93.0 F L 44 L 18 97/51 94 L 08/02/21 13:46 90.5 F L 44 L 18 106/47 97 08/02/21 12:56 89.6 F L Intake and Output 08/02/21 08/03/21 08/03/21 22:59 06:59 14:59 Intake Total 500 240 Output Total 200 Balance 300 240 Intake: Oral 500 240 Output: Urine 200 Other: Voiding Method Indwelling Catheter Indwelling Catheter Weight 113.398 kg Results - Lab Results Most recent lab results Calcium 7.9 mg/dL (8.4-10.2) L 08/03/21 07:43 08/03/21 07:43 08/03/21 07:43 Assessment and Plan Plan: Assessment: 1. Acute kidney injury mostly prerenal secondary to cardiorenal syndrome. Creatinine 2.36 today. 2. Acute on chronic diastolic CHF with severe pulmonary hypertension. 3. Volume overload. 4. Diabetes mellitus. Hypoglycemia resolved. 5. Bradycardia. Beta hesham held. Better. 6. Anemia of chronic kidney disease. Rule out iron deficiency. Plan: Maintain IV Lasix. Check iron studies. Avoid nephrotoxins. Low-salt diet. 1500 mL fluid restriction. Continue to monitor renal function and urine output. Thank you for the consultation. I will continue to follow this patient with you during her hospital stay.
[2021-08-03 13:01] LABS: Poikilocytosis (M) Present
[2021-08-03 13:02] LABS: Ovalocytes Present
[2021-08-03 16:42] LABS: Glucose,Whole Blood 182 mg/dL (75-99)
[2021-08-03 20:14] LABS: % Iron Saturation 11.64 (12.00-45.00); Ferritin 71.3 ng/mL (10.0-291.0)
[2021-08-03 20:29] LABS: Glucose,Whole Blood 188 mg/dL (75-99)
--- NOTE | 2021-08-03 20:47 | P.PN ---
Subjective Progress Note Date: 08/03/21 Patient is a 66-year-old female with a known history of pericardial effusion, CKD stage IV, hypertension, diabetes type 2 on insulin and anxiety/depression, previous history of fall and currently walks with cane was brought to the hospital by EMS. Patient was found on the floor as she slid out of her chair. Patient has not been answering her phone and family was concerned and EMS was called. Patient was found to be hypoglycemic with blood sugar in 40s and low was given oral glucose and D50. Patient's mentation did improve and is currently awake alert and oriented x4. Patient was also found to be bradycardic with heart rate in 40s and hypothermic. On admission temperature was 94.5 and heart rate 45 pulse ox 98% on 2 L oxygen via nasal cannula. Otherwise patient denied any complaints of pain. No chest pain or shortness breath. No cough or sputum production. Denied any recent illnesses. No headache or dizziness or lightheadedness. She could not recollect how she fell down. Laboratory data showed no BC 4.1 hemoglobin 9.2 MCV 104.1 and platelets 208 Sodium 137 potassium 5.1 chloride 108 bicarb is 21 BUN 75 and creatinine 2.21 and blood sugar is 56 lactic acid 0.5 calcium 8.1 and albumin 3.0 UA negative for infection COVID-19 PCR not detected. Chest x-ray showed suspect CHF exacerbation. EKG showed junctional bradycardia. Low voltage QRS. 08/03/2021 Patient is resting in bed. Awake alert and oriented x3.Patient is currently oxygen at 2 L via nasal cannula. Patient is not hypoglycemic. Heart rate improved as well. Patient was given a dose of IV Lasix. Continued on IV Lasix 40 mg every 8 due to acute on chronic CHF with diastolic function. Nephrology was consulted due to CKD stage IV. Patient denied any complaints of chest pain. No nausea vomiting abdominal pain or diarrhea. Denied any dysuria or hematuria. No fever no chills. Laboratory showed WBC 5.2 hemoglobin 8.5 and platelets 198 Sodium 136 potassium 5.2 chloride 110 bicarb is 21 BUN 74 and creatinine 2.36 proBNP 8200 and TSH 3.15 within normal limits and vitamin B12 level is 440. Current medications reviewed. Objective - Vital Signs Vital signs: Vital Signs Temp 98.0 F 08/03/21 08:40 Pulse 63 08/03/21 08:40 Resp 16 08/03/21 08:40 BP 114/58 08/03/21 08:40 Pulse Ox 95 08/03/21 08:40 Intake & Output 08/02/21 08/03/21 08/03/21 18:59 06:59 18:59 Intake Total 500 240 Output Total 200 Balance 300 240 Weight 113.398 kg 113.398 kg Intake: Oral 500 240 Output: Urine 200 Other: Voiding Method Indwelling Catheter Indwelling Catheter - Exam PHYSICAL EXAMINATION: Patient is lying in the bed comfortably, no acute distress, awake alert and oriented.. HEENT: Normocephalic. Neck is supple. Pupils reactive. Nostrils clear. Oral ca vity is moist. Neck reveals no JVD, carotid bruits, or thyromegaly. CHEST EXAMINATION: Trachea is central. Symmetrical expansion. basilar crackles. no wheezing.. CARDIAC: Normal S1, S2 with no gallops. No murmurs ABDOMEN: Soft. Bowel sounds normal. No organomegaly. No abdominal bruits. Extremities: 2+ edema. No clubbing or cyanosis Neurologically awake, alert, oriented x3 with well-coordinated movements. No focal deficits noted Skin: No rash or skin lesions. Psychiatric: Cooperative. Nonsuicidal Musculoskeletal: No joint swelling or deformity. Normal range of motion. - Labs CBC & Chem 7: 08/03/21 07:43 08/03/21 07:43 Labs: Abnormal Lab Results - Last 24 Hours (Table) 08/02/21 08/02/21 08/02/21 Range/Units 12:58 13:05 13:05 RBC (3.80-5.40) m/uL Hgb (11.4-16.0) gm/dL Hct (34.0-46.0) % MCV (80.0-100.0) fL MCHC (31.0-37.0) g/dL RDW (11.5-15.5) % Lymphocytes # (1.0-4.8) k/uL Macrocytosis Sodium (137-145) mmol/L Potassium (3.5-5.1) mmol/L Chloride 108 H (98-107) mmol/L Carbon Dioxide 21 L (22-30) mmol/L BUN 75 H (7-17) mg/dL Creatinine 2.21 H (0.52-1.04) mg/dL Glucose 56 L (74-99) mg/dL POC Glucose (mg/dL) 58 L (75-99) mg/dL Plasma Lactic Acid Octavio <0.5 L (0.7-2.0) mmol/L Calcium 8.1 L (8.4-10.2) mg/dL Albumin 3.0 L (3.5-5.0) g/dL Urine Protein (Negative) Amorphous Sediment (None) /hpf Urine Bacteria (None) /hpf Hyaline Casts (0-2) /lpf Urine Mucus (None) /hpf 08/02/21 08/02/21 08/02/21 Range/Units 13:13 13:13 15:23 RBC 2.99 L (3.80-5.40) m/uL Hgb 9.2 L (11.4-16.0) gm/dL Hct 31.1 L (34.0-46.0) % MCV 104.1 H (80.0-100.0) fL MCHC 29.5 L (31.0-37.0) g/dL RDW 16.9 H (11.5-15.5) % Lymphocytes # 0.5 L (1.0-4.8) k/uL Macrocytosis Sodium (137-145) mmol/L Potassium (3.5-5.1) mmol/L Chloride (98-107) mmol/L Carbon Dioxide (22-30) mmol/L BUN (7-17) mg/dL Creatinine (0.52-1.04) mg/dL Glucose (74-99) mg/dL POC Glucose (mg/dL) 74 L (75-99) mg/dL Plasma Lactic Acid Octavio (0.7-2.0) mmol/L Calcium (8.4-10.2) mg/dL Albumin (3.5-5.0) g/dL Urine Protein 1+ H (Negative) Amorphous Sediment Rare H (None) /hpf Urine Bacteria Rare H (None) /hpf Hyaline Casts 63 H (0-2) /lpf Urine Mucus Rare H (None) /hpf 08/03/21 08/03/21 08/03/21 Range/Units 03:25 05:16 07:02 RBC (3.80-5.40) m/uL Hgb (11.4-16.0) gm/dL Hct (34.0-46.0) % MCV (80.0-100.0) fL MCHC (31.0-37.0) g/dL RDW (11.5-15.5) % Lymphocytes # (1.0-4.8) k/uL Macrocytosis Sodium (137-145) mmol/L Potassium (3.5-5.1) mmol/L Chloride (98-107) mmol/L Carbon Dioxide (22-30) mmol/L BUN (7-17) mg/dL Creatinine (0.52-1.04) mg/dL Glucose (74-99) mg/dL POC Glucose (mg/dL) 105 H 121 H 108 H (75-99) mg/dL Plasma Lactic Acid Octavio (0.7-2.0) mmol/L Calcium (8.4-10.2) mg/dL Albumin (3.5-5.0) g/dL Urine Protein (Negative) Amorphous Sediment (None) /hpf Urine Bacteria (None) /hpf Hyaline Casts (0-2) /lpf Urine Mucus (None) /hpf 08/03/21 08/03/21 08/03/21 Range/Units 07:13 07:43 07:43 RBC 2.72 L (3.80-5.40) m/uL Hgb 8.5 L (11.4-16.0) gm/dL Hct 29.4 L (34.0-46.0) % MCV 108.3 H (80.0-100.0) fL MCHC 29.0 L (31.0-37.0) g/dL RDW 16.7 H (11.5-15.5) % Lymphocytes # (1.0-4.8) k/uL Macrocytosis Marked A Sodium 136 L (137-145) mmol/L Potassium 5.2 H (3.5-5.1) mmol/L Chloride 110 H (98-107) mmol/L Carbon Dioxide 21 L (22-30) mmol/L BUN 74 H (7-17) mg/dL Creatinine 2.36 H (0.52-1.04) mg/dL Glucose 117 H (74-99) mg/dL POC Glucose (mg/dL) 118 H (75-99) mg/dL Plasma Lactic Acid Octavio (0.7-2.0) mmol/L Calcium 7.9 L (8.4-10.2) mg/dL Albumin (3.5-5.0) g/dL Urine Protein (Negative) Amorphous Sediment (None) /hpf Urine Bacteria (None) /hpf Hyaline Casts (0-2) /lpf Urine Mucus (None) /hpf Assessment and Plan Assessment: Altered mental status due to hypoglycemia resolved now. Bradycardia. Improved. Likely due to hypoglycemia. Coreg on hold. Acute on chronic CHF with respiratory dysfunction. Acute on chronic kidney disease stage IV History of pericardial effusion Hypothermia improved with bear hugger Hypertension.. Diabetes type 2 insulin-dependent DVT prophylaxis with heparin subcu Plan: Patient was given a dose of D50 in the ER. Blood sugar did improve. Patient is currently on Levemir 14 units at bedtime along with sitagliptin and linagliptin also at home. Continue with insulin sliding scale and follow-up CBC . Coreg is on hold due to bradycardia. Cardiology was consulted due to previous history of pericardial effusion and low voltage criteria. TSH level will be ordered. c/w IV Lasix and follow-up respiratory status and renal function closely. Continue with oxygen supplementation. Prognosis is guarded.
[2021-08-03] MEDS: ATORVASTATIN 40 MG TAB PO SCH (20:54)
[2021-08-04 06:16] LABS: Glucose,Whole Blood 151 mg/dL (75-99)
[2021-08-04] MEDS: INSULIN ASPART (NovoLOG) 100 UNIT/ML VIAL SQ SCH ×4 (06:17→20:31)
[2021-08-04] MEDS: FUROSEMIDE 10 MG/ML 4 ML VIAL IV SCH ×3 (08:37→23:31)
[2021-08-04] MEDS: allopurinoL 100 MG TAB PO SCH (08:37)
[2021-08-04] MEDS: HEPARIN SODIUM,PORCINE/PF 5,000 UNIT/0.5 ML SYRINGE SQ SCH ×3 (08:37→23:31)
[2021-08-04 08:44] LABS: Calcium 7.7 mg/dL (8.4-10.2); Magnesium 2.2 mg/dL (1.6-2.3)
--- NOTE | 2021-08-04 08:55 | P.PN ---
Subjective Patient is seen in follow-up for acute kidney injury on chronic kidney disease. Renal function is stable. Nonoliguric. Edema improving. States she feels more short of breath when lays flat. Vital signs are stable. General: The patient appeared well nourished and normally developed. HEENT: Head exam is unremarkable. LUNGS: Breath sounds decreased. HEART: Rate and Rhythm are regular. ABDOMEN: Soft, no distention. EXTREMITITES: Lower extremities wrapped. 1+ edema. Objective - Vital Signs Vital signs: Vital Signs Temp 97.8 F 08/04/21 08:00 Pulse 61 08/04/21 08:00 Resp 16 08/04/21 08:00 BP 123/60 08/04/21 08:00 Pulse Ox 95 08/04/21 08:44 Intake & Output 08/03/21 08/04/21 08/04/21 18:59 06:59 18:59 Intake Total 840 120 Output Total 1500 Balance 840 -1500 120 Weight 127.5 kg Intake: Oral 840 120 Output: Urine 1500 Other: Voiding Method Indwelling Catheter Indwelling Catheter - Labs CBC & Chem 7: 08/03/21 07:43 08/04/21 07:19 Labs: Abnormal Lab Results - Last 24 Hours (Table) 08/03/21 08/03/21 08/03/21 Range/Units 07:43 07:43 16:41 Lymphocytes # 0.6 L (1.0-4.8) k/uL Sodium (137-145) mmol/L Chloride (98-107) mmol/L BUN (7-17) mg/dL Creatinine (0.52-1.04) mg/dL Glucose (74-99) mg/dL POC Glucose (mg/dL) 182 H (75-99) mg/dL Calcium (8.4-10.2) mg/dL Iron 35 L (50-170) ug/dL % Saturation 11.64 L (12.00-45.00) 08/03/21 08/04/21 08/04/21 Range/Units 20:27 06:15 07:19 Lymphocytes # (1.0-4.8) k/uL Sodium 136 L (137-145) mmol/L Chloride 110 H (98-107) mmol/L BUN 77 H (7-17) mg/dL Creatinine 2.30 H (0.52-1.04) mg/dL Glucose 134 H (74-99) mg/dL POC Glucose (mg/dL) 188 H 151 H (75-99) mg/dL Calcium 7.7 L (8.4-10.2) mg/dL Iron (50-170) ug/dL % Saturation (12.00-45.00) Microbiology - Last 24 Hours (Table) 08/02/21 13:13 Blood Culture - Preliminary Blood No Growth after 24 hours 08/02/21 13:00 Blood Culture - Preliminary Blood No Growth after 24 hours Assessment and Plan Plan: Assessment: 1. Acute kidney injury mostly prerenal secondary to cardiorenal syndrome. Creatinine 2.3 today. 2. Acute on chronic diastolic CHF with severe pulmonary hypertension. 3. Volume overload. 4. Diabetes mellitus. Hypoglycemia resolved. 5. Bradycardia. Beta hesham held. Better. 6. Anemia of chronic kidney disease. Iron deficiency noted. Plan: Maintain IV Lasix. Add IV iron. Avoid nephrotoxins. Low-salt diet. 1500 mL fluid restriction. Continue to monitor renal function and urine output. Check chest x-ray.
--- NOTE | 2021-08-04 09:39 | XR ---
EXAMINATION TYPE: XR chest 1V DATE OF EXAM: 08/04/2021 CLINICAL HISTORY: Difficulty breathing progress study. TECHNIQUE: Single AP portable frontal view of the chest is obtained. COMPARISON: Chest x-ray from 2 days earlier FINDINGS: Persistent cardiomegaly with central vascular congestion and small to moderate-sized bilat eral pleural effusions. Osseous structures remain demineralized. IMPRESSION: Findings consistent with CHF exacerbation remain present. No significant change from 2 da ys earlier.
[2021-08-04] MEDS: SODIUM FERRIC GLUCONAT-SUCROSE 125 MG in SODIUM CHLORIDE 0.9% 100 ML IVPB SCH (10:39)
--- NOTE | 2021-08-04 11:34 | P.PN ---
Subjective Progress Note Date: 08/04/21 HISTORY OF PRESENT ILLNESS: This is a 66 year old female with a past medical history significant for uterine cancer with previous radiation, chronic diarrhea since having radiation, bilateral lymphedema, severe pulmonary hypertension, chronic diastolic congestive heart failure, chronic kidney disease, chronic pericardial effusion, hypertension, and hyperlipidemia. Patient follows in the office with Dr. Li. We have been asked to see the patient in consultation for bradycardia and congestive heart failure. Patient examined at the bedside. Patient was brought to the hospital per EMS yesterday after her family was unable to get a hold of her. EMS found the patient unresponsive on the floor of her home. Patient was found to be bradycardic with a heart rate in the 40s. She was also found to be hypoglycemic with a blood sugar in the 40s. This morning the patient is alert and oriented 3. Patient does not remember much of what happened yesterday. She does state that she did not take any of her medications yesterday and does not think that she ate anything. She does not remember feeling dizzy or lightheaded. She denied having any chest pain or pressure. Denies shortness of breath. She does report increased lower extremity edema over the past week. She does believe she has gained weight secondary to fluid retention however she has not weighed herself. EKG reveals sinus bradycardia with a heart rate in the 40s. Chest xray suspect CHF exacerbation. Persistent cardiomegaly with new small to moderate sized bilateral pleural effusions and moderate central edema bilaterally. Laboratory data: WBC 5.2. Hemoglobin 8.5. Platelet count 198. Sodium 136. Potassium 5.2. BUN 74. Creatinine 2.36. ProBNP 8200. TSH 3.150. Current home cardiac medications include carvedilol 25 mg twice a day, lisinopril 20 mg daily, amlodipine 10 mg daily, hydralazine 25 mg 3 times a day, atorvastatin 40 mg at night, Bumex 3 mg in the morning and 2 mg in the afternoon Most recent echocardiogram obtained in January 2021 revealed ejection fraction 60-65%, mild aortic regurgitation, mild mitral regurgitation, mild tricuspid regurgitation, severe pulmonary hypertension with RVSP of 63.01 and mild to moderate generalized pericardial effusion Cardiac catheterization history: Patient reports she had a right heart catheterization performed in 2020 at [facility] [place]. Records of this are not available at the time of this dictation. 08/04/2021 Patient examined this morning at the bedside. Patient denies chest pain or pressure. She reports mild [place] breath. She remains on nasal cannula with oxygen saturations greater than 92%. She remains on IV Lasix 40 mg every 8 hours. Kidney function stable today at 2.3. Nephrology is following. Telemetry reveals sinus mechanism in the 60s. Blood pressure stable at 123/60. Fluid balance over the last 24 hours is -660 mL. chest x-ray this morning reveals findings consistent with CHF exacerbation and no significant change from 2 days prior. PHYSICAL EXAM: VITAL SIGNS: Reviewed. GENERAL: Well-developed in no acute distress. HEENT: Head is normocephalic. Pupils are equal, round. Sclerae anicteric. Mucous membranes of the mouth are moist. Neck supple. No JVD or thyromegaly LUNGS: Respirations even and unlabored. Lungs diminished with a few crackles at the bases. HEART: Regular rate and rhythm. S1 and S2 heard. ABDOMEN: Soft. Nondistended. Nontender. EXTREMITIES: Normal range of motion. No clubbing or cyanosis. Peripheral pulses intact. 2+ bilateral lower extremity edema NEUROLOGIC: Awake and alert. Oriented x 3. ASSESSMENT: Bradycardia Hypoglycemia Acute on chronic diastolic congestive heart failure Acute on chronic kidney disease Chronic pericardial effusion Hypertension Hyperlipidemia History of lymphedema Chronic anemia History of uterine cancer with radiation History of chronic diarrhea since radiation treatments PLAN: 2-D echo ordered. Await results. Continue to hold beta blockers. Continue telemetry monitoring Continue to hold antihypertensive medications. Continue to monitor blood pressure Continue IV Lasix Accurate I&O Daily weights Patient may benefit from SGLT2 inhibitor such as Jardiance secondary to diastolic HF. This may be discussed on an outpatient basis. Obtain records from cardiac catheterization performed in 2020 at [facility] Further recommendations pending patient course Nurse practitioner note has been reviewed by physician. Signing provider agrees with the documented findings, assessment, and plan of care. Objective - Vital Signs Vital signs: Vital Signs Temp 97.8 F 08/04/21 08:00 Pulse 61 08/04/21 08:00 Resp 16 08/04/21 08:00 BP 123/60 08/04/21 08:00 Pulse Ox 95 08/04/21 08:44 Intake & Output 08/03/21 08/04/21 08/04/21 18:59 06:59 18:59 Intake Total 840 120 Output Total 1500 800 Balance 840 -1500 -680 Weight 127.5 kg Intake: Oral 840 120 Output: Urine 1500 800 Other: Voiding Method Indwelling Catheter Indwelling Catheter Indwelling Catheter # Bowel Movements 1 - Labs CBC & Chem 7: 08/03/21 07:43 08/04/21 07:19 Labs: Abnormal Lab Results - Last 24 Hours (Table) 08/03/21 08/03/21 08/03/21 Range/Units 07:43 07:43 16:41 Lymphocytes # 0.6 L (1.0-4.8) k/uL Sodium (137-145) mmol/L Chloride (98-107) mmol/L BUN (7-17) mg/dL Creatinine (0.52-1.04) mg/dL Glucose (74-99) mg/dL POC Glucose (mg/dL) 182 H (75-99) mg/dL Calcium (8.4-10.2) mg/dL Iron 35 L (50-170) ug/dL % Saturation 11.64 L (12.00-45.00) 08/03/21 08/04/21 08/04/21 Range/Units 20:27 06:15 07:19 Lymphocytes # (1.0-4.8) k/uL Sodium 136 L (137-145) mmol/L Chloride 110 H (98-107) mmol/L BUN 77 H (7-17) mg/dL Creatinine 2.30 H (0.52-1.04) mg/dL Glucose 134 H (74-99) mg/dL POC Glucose (mg/dL) 188 H 151 H (75-99) mg/dL Calcium 7.7 L (8.4-10.2) mg/dL Iron (50-170) ug/dL % Saturation (12.00-45.00) Microbiology - Last 24 Hours (Table) 08/02/21 13:13 Blood Culture - Preliminary Blood No Growth after 24 hours 08/02/21 13:00 Blood Culture - Preliminary Blood No Growth after 24 hours
[2021-08-04 11:40] LABS: Glucose,Whole Blood 175 mg/dL (75-99)
[2021-08-04 16:47] LABS: Glucose,Whole Blood 183 mg/dL (75-99)
[2021-08-04] MEDS: ATORVASTATIN 40 MG TAB PO SCH (20:09)
[2021-08-04 20:30] LABS: Glucose,Whole Blood 189 mg/dL (75-99)
[2021-08-05 06:29] LABS: Glucose,Whole Blood 132 mg/dL (75-99)
[2021-08-05] MEDS: INSULIN ASPART (NovoLOG) 100 UNIT/ML VIAL SQ SCH ×4 (06:29→21:00)
--- NOTE | 2021-08-05 09:11 | P.PN ---
Subjective Patient is seen in follow-up for acute kidney injury on chronic kidney disease. Renal function stable as of yesterday. Nonoliguric. Edema improving. Vital signs are stable. General: The patient appeared well nourished and normally developed. HEENT: Head exam is unremarkable. LUNGS: Breath sounds decreased. HEART: Rate and Rhythm are regular. ABDOMEN: Soft, no distention. EXTREMITITES: Lower extremities wrapped. 1+ edema. Objective - Vital Signs Vital signs: Vital Signs Temp 98.4 F 08/05/21 03:40 Pulse 62 08/05/21 03:40 Resp 20 08/05/21 03:40 BP 137/65 08/05/21 03:40 Pulse Ox 96 08/05/21 03:40 Intake & Output 08/04/21 08/05/21 08/05/21 18:59 06:59 18:59 Intake Total 480 480 Output Total 1800 2600 Balance -1320 -2120 Weight 127.5 kg Intake: Oral 480 480 Output: Urine 1800 2600 Other: Voiding Method Indwelling Catheter Indwelling Catheter # Bowel Movements 1 - Labs CBC & Chem 7: 08/03/21 07:43 08/04/21 07:19 Labs: Abnormal Lab Results - Last 24 Hours (Table) 08/04/21 08/04/21 08/04/21 Range/Units 11:38 16:46 20:28 POC Glucose (mg/dL) 175 H 183 H 189 H (75-99) mg/dL 08/05/21 Range/Units 06:27 POC Glucose (mg/dL) 132 H (75-99) mg/dL Microbiology - Last 24 Hours (Table) 08/02/21 13:13 Blood Culture - Preliminary Blood No Growth after 48 hours 08/02/21 13:00 Blood Culture - Preliminary Blood No Growth after 48 hours Assessment and Plan Plan: Assessment: 1. Acute kidney injury mostly prerenal secondary to cardiorenal syndrome. Creatinine 2.3 yesterday. 2. Acute on chronic diastolic CHF with severe pulmonary hypertension. 3. Volume overload. Improving with diuresis. 4. Diabetes mellitus. Hypoglycemia resolved. 5. Bradycardia. Beta hesham held. Better. 6. Anemia of chronic kidney disease. Iron deficiency noted. Plan: Maintain IV Lasix. Maintain IV iron. Avoid nephrotoxins. Low-salt diet. 1500 mL fluid restriction. Continue to monitor renal function and urine output.
[2021-08-05 09:33] LABS: Calcium 7.9 mg/dL (8.4-10.2)
[2021-08-05] MEDS: HEPARIN SODIUM,PORCINE/PF 5,000 UNIT/0.5 ML SYRINGE SQ SCH ×3 (09:33→23:34)
[2021-08-05] MEDS: FUROSEMIDE 10 MG/ML 4 ML VIAL IV SCH ×3 (09:33→23:34)
[2021-08-05] MEDS: SODIUM FERRIC GLUCONAT-SUCROSE 125 MG in SODIUM CHLORIDE 0.9% 100 ML IVPB SCH (09:34)
[2021-08-05] MEDS: allopurinoL 100 MG TAB PO SCH (09:34)
[2021-08-05 09:35] LABS: Magnesium 2.2 mg/dL (1.6-2.3)
[2021-08-05 09:53] LABS: Anisocytosis Slight; Basophils # (A) 0.1 k/uL (0-0.2); Basophils % (A) 1 %; Eosinophils # (A) 0.3 k/uL (0-0.7); Eosinophils % (A) 6 %; HCT 30.3 % (34.0-46.0); HGB 8.7 gm/dL (11.4-16.0); Hypochromasia Marked; Lymphocytes # (A) 0.6 k/uL (1.0-4.8); Lymphocytes % (A) 10 %; MCH 31.4 pg (25.0-35.0); MCHC 28.7 g/dL (31.0-37.0); MCV 109.4 fL (80.0-100.0); Macrocytosis Marked; Mean Platelet Volume 9.5; Monocytes # (A) 0.4 k/uL (0-1.0); Monocytes % (A) 7 %; Neutrophils # (A) 4.2 k/uL (1.3-7.7); Neutrophils % (A) 75 %; Platelet Count 133 k/uL (150-450); RBC 2.77 m/uL (3.80-5.40); RDW 16.1 % (11.5-15.5); WBC 5.5 k/uL (3.8-10.6)
[2021-08-05 09:54] LABS: Potassium 5.1 mmol/L (3.5-5.1)
[2021-08-05 10:59] LABS: Poikilocytosis (M) Present
[2021-08-05 11:57] LABS: Glucose,Whole Blood 185 mg/dL (75-99)
--- NOTE | 2021-08-05 12:16 | P.PN ---
Subjective Progress Note Date: 08/05/21 HISTORY OF PRESENT ILLNESS: This is a 66 year old female with a past medical history significant for uterine cancer with previous radiation, chronic diarrhea since having radiation, bilateral lymphedema, severe pulmonary hypertension, chronic diastolic congestive heart failure, chronic kidney disease, chronic pericardial effusion, hypertension, and hyperlipidemia. Patient follows in the office with Dr. Li. We have been asked to see the patient in consultation for bradycardia and congestive heart failure. Patient examined at the bedside. Patient was brought to the hospital per EMS yesterday after her family was unable to get a hold of her. EMS found the patient unresponsive on the floor of her home. Patient was found to be bradycardic with a heart rate in the 40s. She was also found to be hypoglycemic with a blood sugar in the 40s. This morning the patient is alert and oriented 3. Patient does not remember much of what happened yesterday. She does state that she did not take any of her medications yesterday and does not think that she ate anything. She does not remember feeling dizzy or lightheaded. She denied having any chest pain or pressure. Denies shortness of breath. She does report increased lower extremity edema over the past week. She does believe she has gained weight secondary to fluid retention however she has not weighed herself. EKG reveals sinus bradycardia with a heart rate in the 40s. Chest xray suspect CHF exacerbation. Persistent cardiomegaly with new small to moderate sized bilateral pleural effusions and moderate central edema bilaterally. Laboratory data: WBC 5.2. Hemoglobin 8.5. Platelet count 198. Sodium 136. Potassium 5.2. BUN 74. Creatinine 2.36. ProBNP 8200. TSH 3.150. Current home cardiac medications include carvedilol 25 mg twice a day, lisinopril 20 mg daily, amlodipine 10 mg daily, hydralazine 25 mg 3 times a day, atorvastatin 40 mg at night, Bumex 3 mg in the morning and 2 mg in the afternoon Most recent echocardiogram obtained in January 2021 revealed ejection fraction 60-65%, mild aortic regurgitation, mild mitral regurgitation, mild tricuspid regurgitation, severe pulmonary hypertension with RVSP of 63.01 and mild to moderate generalized pericardial effusion Cardiac catheterization history: Patient reports she had a right heart catheterization performed in 2020 at [facility]. Records of this are not available at the time of this dictation. 08/04/2021 Patient examined this morning at the bedside. Patient denies chest pain or pressure. She reports mild [place] breath. She remains on nasal cannula with oxygen saturations greater than 92%. She remains on IV Lasix 40 mg every 8 hours. Kidney function stable today at 2.3. Nephrology is following. Telemetry reveals sinus mechanism in the 60s. Blood pressure stable at 123/60. Fluid balance over the last 24 hours is -660 mL. chest x-ray this morning reveals findings consistent with CHF exacerbation and no significant change from 2 days prior. 08/05/2021 Patient examined this morning. She is sitting up in the chair. She denies chest pain or pressure. She reports occasional shortness of breath. She remains on IV lasix. Kidney function stable. Blood pressure 162/76. Heart rate remains in the 60s with no further significant bradycardia noted. RIght heart cath from [facility] obtained revealing "evidence of both precapillary and pulse capillary pulmonary hypertension" PHYSICAL EXAM: VITAL SIGNS: Reviewed. GENERAL: Well-developed in no acute distress. HEENT: Head is normocephalic. Pupils are equal, round. Sclerae anicteric. Mucous membranes of the mouth are moist. Neck supple. No JVD or thyromegaly LUNGS: Respirations even and unlabored. Lungs diminished with a few crackles at the bases. HEART: Regular rate and rhythm. S1 and S2 heard. ABDOMEN: Soft. Nondistended. Nontender. EXTREMITIES: Normal range of motion. No clubbing or cyanosis. Peripheral pulses intact. 2+ bilateral lower extremity edema NEUROLOGIC: Awake and alert. Oriented x 3. ASSESSMENT: Bradycardia Hypoglycemia Acute on chronic diastolic congestive heart failure Acute on chronic kidney disease Chronic pericardial effusion Hypertension Hyperlipidemia History of lymphedema Chronic anemia History of uterine cancer with radiation History of chronic diarrhea since radiation treatments PLAN: 2-D echo ordered. Await results. Continue to hold beta blockers. Continue telemetry monitoring Patients BP improved today. Add hydralazine and imdur. Continue to monitor BP and resume home meds as able to tolerate Continue IV Lasix Accurate I&O Daily weights Patient may benefit from SGLT2 inhibitor such as Jardiance secondary to diastolic HF. This may be discussed on an outpatient basis. Obtain records from cardiac catheterization performed in 2020 at [facility] Further recommendations pending patient course Nurse practitioner note has been reviewed by physician. Signing provider agrees with the documented findings, assessment, and plan of care. Objective - Vital Signs Vital signs: Vital Signs Temp 97.8 F 08/05/21 08:00 Pulse 69 08/05/21 08:00 Resp 20 08/05/21 08:00 BP 162/72 08/05/21 08:00 Pulse Ox 96 08/05/21 08:00 Intake & Output 08/04/21 08/05/21 08/05/21 18:59 06:59 18:59 Intake Total 480 480 500 Output Total 1800 2600 Balance -1320 -2120 500 Weight 127.5 kg Intake: Oral 480 480 500 Output: Urine 1800 2600 Other: Voiding Method Indwelling Catheter Indwelling Catheter Indwelling Catheter # Bowel Movements 1 - Labs CBC & Chem 7: 08/05/21 08:19 08/05/21 08:19 Labs: Abnormal Lab Results - Last 24 Hours (Table) 08/04/21 08/04/21 08/05/21 Range/Units 16:46 20:28 06:27 RBC (3.80-5.40) m/uL Hgb (11.4-16.0) gm/dL Hct (34.0-46.0) % MCV (80.0-100.0) fL MCHC (31.0-37.0) g/dL RDW (11.5-15.5) % Plt Count (150-450) k/uL Lymphocytes # (1.0-4.8) k/uL Macrocytosis Chloride (98-107) mmol/L BUN (7-17) mg/dL Creatinine (0.52-1.04) mg/dL Glucose (74-99) mg/dL POC Glucose (mg/dL) 183 H 189 H 132 H (75-99) mg/dL Calcium (8.4-10.2) mg/dL 08/05/21 08/05/21 08/05/21 Range/Units 08:19 08:19 11:55 RBC 2.77 L (3.80-5.40) m/uL Hgb 8.7 L (11.4-16.0) gm/dL Hct 30.3 L (34.0-46.0) % MCV 109.4 H (80.0-100.0) fL MCHC 28.7 L (31.0-37.0) g/dL RDW 16.1 H (11.5-15.5) % Plt Count 133 L (150-450) k/uL Lymphocytes # 0.6 L (1.0-4.8) k/uL Macrocytosis Marked A Chloride 110 H (98-107) mmol/L BUN 80 H (7-17) mg/dL Creatinine 2.20 H (0.52-1.04) mg/dL Glucose 126 H (74-99) mg/dL POC Glucose (mg/dL) 185 H (75-99) mg/dL Calcium 7.9 L (8.4-10.2) mg/dL Microbiology - Last 24 Hours (Table) 08/02/21 13:13 Blood Culture - Preliminary Blood No Growth after 48 hours 08/02/21 13:00 Blood Culture - Preliminary Blood No Growth after 48 hours
[2021-08-05] MEDS: ISOSORBIDE MONONITRATE ER 30 MG TAB.ER.24H PO SCH (13:09)
[2021-08-05] MEDS: hydrALAZINE HCL 25 MG TAB PO SCH ×2 (13:09→21:00)
--- NOTE | 2021-08-05 15:07 | ECHOF ---
Referral Reason:CHF, lv function MEASUREMENTS -------- HEIGHT: 170.2 cm WEIGHT: 127.5 kg BP: RVIDd: 4.4 cm (< 3.3) IVSd: 1.6 cm (0.6 - 1.1) LVIDd: 4.3 cm (3.9 - 5.3) LVPWd: 2.9 cm (0.6 - 1.1) IVSs: 1.6 cm LVIDs: 3.0 cm LVPWs: 2.0 cm LA Diam: 4.4 cm (2.7 - 3.8) Ao Diam: 2.9 cm (2.0 - 3.7) AV Cusp: 2.2 cm (1.5 - 2.6) LA Diam: 4.9 cm (2.7 - 3.8) MV EXCURSION: 26.551 mm (> 18.000) MV EF SLOPE: 69 mm/s (70 - 150) EPSS: 0.4 cm MV E Bj: 0.80 m/s MV DecT: 242 ms MV A Bj: 0.97 m/s MV E/A Ratio: 0.82 RAP: 5.00 mmHg RVSP: 53.40 mmHg FINDINGS -------- Sinus rhythm. This was a technically good study. The left ventricular size is normal. There is mild concentric left ventricular hypertrophy. Overa ll left ventricular systolic function is low-normal with, an EF between 50 - 55 %. The right ventricle is moderate to severely enlarged. The left atrium is moderately dilated. The right atrial size is normal. There is mild aortic valve sclerosis. Mild mitral regurgitation is present. Moderate tricuspid regurgitation present. There is moderate pulmonary hypertension. The right angel tricular systolic pressure, as measured by Doppler, is 53.40mmHg. There is no pulmonic regurgitation present. There is a moderate, generalized pericardial effusion present. Moderate Pleural Effusion. CONCLUSIONS -------- 1. The left ventricular size is normal. 2. There is mild concentric left ventricular hypertrophy. 3. Overall left ventricular systolic function is low-normal with, an EF between 50 - 55 %. 4. The right ventricle is moderate to severely enlarged. 5. The left atrium is moderately dilated. 6. The right atrial size is normal. 7. There is mild aortic valve sclerosis. 8. Mild mitral regurgitation is present. 9. Moderate tricuspid regurgitation present. 10. There is moderate pulmonary hypertension. 11. The right ventricular systolic pressure, as measured by Doppler, is 53.40mmHg. 12. There is no pulmonic regurgitation present. 13. There is a moderate, generalized pericardial effusion present. 14. Moderate Pleural Effusion. [employer] B[employer] DEVELOPER: Keke Lora RDCS
[2021-08-05 16:25] LABS: Glucose,Whole Blood 182 mg/dL (75-99)
[2021-08-05 20:48] LABS: Glucose,Whole Blood 173 mg/dL (75-99)
[2021-08-05] MEDS: ATORVASTATIN 40 MG TAB PO SCH (21:00)
[2021-08-06] MEDS: FUROSEMIDE 10 MG/ML 4 ML VIAL IV SCH ×4 (00:30→23:04)
[2021-08-06 06:16] LABS: Glucose,Whole Blood 121 mg/dL (75-99)
[2021-08-06] MEDS: INSULIN ASPART (NovoLOG) 100 UNIT/ML VIAL SQ SCH ×4 (06:16→20:18)
[2021-08-06] MEDS: ISOSORBIDE MONONITRATE ER 30 MG TAB.ER.24H PO SCH (08:02)
[2021-08-06] MEDS: allopurinoL 100 MG TAB PO SCH (08:02)
[2021-08-06] MEDS: HEPARIN SODIUM,PORCINE/PF 5,000 UNIT/0.5 ML SYRINGE SQ SCH ×3 (08:02→23:04)
[2021-08-06] MEDS: hydrALAZINE HCL 25 MG TAB PO SCH (08:02)
[2021-08-06 08:07] LABS: Potassium 4.4 mmol/L (3.5-5.1)
[2021-08-06 08:08] LABS: Magnesium 2.1 mg/dL (1.6-2.3)
--- NOTE | 2021-08-06 08:25 | P.PN ---
Subjective Patient is seen in follow-up for acute kidney injury on chronic kidney disease. Renal function improving with diuresis. Nonoliguric. Edema improving. Vital signs are stable. General: The patient appeared well nourished and normally developed. HEENT: Head exam is unremarkable. LUNGS: Breath sounds decreased. HEART: Rate and Rhythm are regular. ABDOMEN: Soft, no distention. EXTREMITITES: Lower extremities wrapped. 1+ edema. Objective - Vital Signs Vital signs: Vital Signs Temp 97.4 F L 08/06/21 03:40 Pulse 66 08/06/21 03:40 Resp 18 08/06/21 03:40 BP 172/74 08/06/21 03:40 Pulse Ox 95 08/06/21 03:40 Intake & Output 08/05/21 08/06/21 08/06/21 18:59 06:59 18:59 Intake Total 500 240 400 Output Total 2000 2600 Balance -1500 -2360 400 Weight 123.5 kg Intake: Oral 500 240 400 Output: Urine 1999 2600 Other: Voiding Method Indwelling Catheter Indwelling Catheter # Bowel Movements 1 - Labs CBC & Chem 7: 08/05/21 08:19 08/06/21 07:26 Labs: Abnormal Lab Results - Last 24 Hours (Table) 08/03/21 08/05/21 08/05/21 Range/Units 07:43 08:19 08:19 RBC 2.77 L (3.80-5.40) m/uL Hgb 8.7 L (11.4-16.0) gm/dL Hct 30.3 L (34.0-46.0) % MCV 109.4 H (80.0-100.0) fL MCHC 28.7 L (31.0-37.0) g/dL RDW 16.1 H (11.5-15.5) % Plt Count 133 L (150-450) k/uL Lymphocytes # 0.6 L (1.0-4.8) k/uL Macrocytosis Marked A Sodium (137-145) mmol/L Chloride 110 H (98-107) mmol/L BUN 80 H (7-17) mg/dL Creatinine 2.20 H (0.52-1.04) mg/dL Glucose 126 H (74-99) mg/dL POC Glucose (mg/dL) (75-99) mg/dL Calcium 7.9 L (8.4-10.2) mg/dL RBC Folate 988 H (280 - 791) ng/mL 08/05/21 08/05/21 08/05/21 Range/Units 11:55 16:24 20:16 RBC (3.80-5.40) m/uL Hgb (11.4-16.0) gm/dL Hct (34.0-46.0) % MCV (80.0-100.0) fL MCHC (31.0-37.0) g/dL RDW (11.5-15.5) % Plt Count (150-450) k/uL Lymphocytes # (1.0-4.8) k/uL Macrocytosis Sodium (137-145) mmol/L Chloride (98-107) mmol/L BUN (7-17) mg/dL Creatinine (0.52-1.04) mg/dL Glucose (74-99) mg/dL POC Glucose (mg/dL) 185 H 182 H 173 H (75-99) mg/dL Calcium (8.4-10.2) mg/dL RBC Folate (280 - 791) ng/mL 08/06/21 08/06/21 Range/Units 06:14 07:26 RBC (3.80-5.40) m/uL Hgb (11.4-16.0) gm/dL Hct (34.0-46.0) % MCV (80.0-100.0) fL MCHC (31.0-37.0) g/dL RDW (11.5-15.5) % Plt Count (150-450) k/uL Lymphocytes # (1.0-4.8) k/uL Macrocytosis Sodium 136 L (137-145) mmol/L Chloride 109 H (98-107) mmol/L BUN 74 H (7-17) mg/dL Creatinine 1.87 H (0.52-1.04) mg/dL Glucose 133 H (74-99) mg/dL POC Glucose (mg/dL) 121 H (75-99) mg/dL Calcium 8.0 L (8.4-10.2) mg/dL RBC Folate (280 - 791) ng/mL Microbiology - Last 24 Hours (Table) 08/02/21 13:13 Blood Culture - Preliminary Blood No Growth after 72 hours 08/02/21 13:00 Blood Culture - Preliminary Blood No Growth after 72 hours Assessment and Plan Plan: Assessment: 1. Acute kidney injury mostly prerenal secondary to cardiorenal syndrome. Renal function better. Creatinine 1.87 today. 2. Acute on chronic diastolic CHF with severe pulmonary hypertension. 3. Volume overload. Improving with diuresis. 4. Diabetes mellitus. Hypoglycemia resolved. 5. Bradycardia. Beta hesham held. Better. 6. Anemia of chronic kidney disease. Iron deficiency noted. Plan: Maintain IV Lasix. Maintain IV iron. Avoid nephrotoxins. Low-salt diet. 1500 mL fluid restriction. Continue to monitor renal function and urine output. Repeat labs in the morning.
[2021-08-06] MEDS: SODIUM FERRIC GLUCONAT-SUCROSE 125 MG in SODIUM CHLORIDE 0.9% 100 ML IVPB SCH (09:15)
[2021-08-06 11:28] LABS: Glucose,Whole Blood 165 mg/dL (75-99)
--- NOTE | 2021-08-06 12:40 | P.PN ---
Subjective Progress Note Date: 08/06/21 PROGRESS NOTE The patient is a 66-year-old female with known history of chronic kidney disease, hypertension and hyperlipidemia who presented with symptoms of progressive dyspnea, peripheral edema and weakness. She feels a little bit better today. She denies any chest discomfort him a dizziness or palpitations. She has a preserved systolic function. She received iron infusions. She continues to be on intravenous diuretics with Lasix 40 mg IV every 8 hours, hydralazine 25 mg twice a day, isosorbide 30 mg daily, insulin, Lipitor 40 mg daily. She has lost weight since her admission with good diuresis PHYSICAL EXAMINATION: Blood pressure [144/70] heart rate [70] LUNGS: [Decreased breath sounds at the base] HEART: [Regular rate and rhythm, S1, S2. No S3. systolic murmur at the base] ABDOMEN: [Soft, nontender, no organomegaly] EXTREMETIES: [2+ edema] LAB: BUN 74, creatinine 1.87 IMPRESSION: 1. [ Congestive heart failure with preserved systolic function] 2. [ Chronic kidney disease] 3. [ Hypertension] 4. [ Diabetes] PLAN: 1. Continue IV diuretics and follow her renal functions 2. The patient would benefit from the addition of Jardiance in view of the congestive heart failure and preserved systolic function 3. Increase hydralazine for better control of her blood pressure 4. Increase physical activity. Objective - Vital Signs Vital signs: Vital Signs Temp 98.1 F 08/06/21 12:00 Pulse 71 08/06/21 12:00 Resp 18 08/06/21 12:00 BP 144/70 08/06/21 12:00 Pulse Ox 96 08/06/21 12:00 Intake & Output 08/05/21 08/06/21 08/06/21 18:59 06:59 18:59 Intake Total 500 240 400 Output Total 1999 2600 600 Balance -1500 -2360 -200 Weight 123.5 kg Intake: Oral 500 240 400 Output: Urine 1999 2600 600 Other: Voiding Method Indwelling Catheter Indwelling Catheter Indwelling Catheter # Bowel Movements 1 - Labs CBC & Chem 7: 08/05/21 08:19 08/06/21 07:26 Labs: Abnormal Lab Results - Last 24 Hours (Table) 08/03/21 08/05/21 08/05/21 Range/Units 07:43 16:24 20:16 Sodium (137-145) mmol/L Chloride (98-107) mmol/L BUN (7-17) mg/dL Creatinine (0.52-1.04) mg/dL Glucose (74-99) mg/dL POC Glucose (mg/dL) 182 H 173 H (75-99) mg/dL Calcium (8.4-10.2) mg/dL RBC Folate 988 H (280 - 791) ng/mL 08/06/21 08/06/21 08/06/21 Range/Units 06:14 07:26 11:26 Sodium 136 L (137-145) mmol/L Chloride 109 H (98-107) mmol/L BUN 74 H (7-17) mg/dL Creatinine 1.87 H (0.52-1.04) mg/dL Glucose 133 H (74-99) mg/dL POC Glucose (mg/dL) 121 H 165 H (75-99) mg/dL Calcium 8.0 L (8.4-10.2) mg/dL RBC Folate (280 - 791) ng/mL Microbiology - Last 24 Hours (Table) 08/02/21 13:13 Blood Culture - Preliminary Blood No Growth after 72 hours 08/02/21 13:00 Blood Culture - Preliminary Blood No Growth after 72 hours
[2021-08-06 16:50] LABS: Glucose,Whole Blood 184 mg/dL (75-99)
[2021-08-06] MEDS: ATORVASTATIN 40 MG TAB PO SCH (20:18)
[2021-08-06] MEDS: hydrALAZINE HCL 50 MG TAB PO SCH (20:18)
[2021-08-06 20:42] LABS: Glucose,Whole Blood 216 mg/dL (75-99)
[2021-08-07] MEDS: INSULIN ASPART (NovoLOG) 100 UNIT/ML VIAL SQ SCH ×4 (06:15→21:54)
[2021-08-07 06:42] LABS: Glucose,Whole Blood 128 mg/dL (75-99)
[2021-08-07] MEDS: hydrALAZINE HCL 50 MG TAB PO SCH ×2 (08:19→21:53)
[2021-08-07] MEDS: allopurinoL 100 MG TAB PO SCH (08:19)
[2021-08-07] MEDS: FUROSEMIDE 10 MG/ML 4 ML VIAL IV SCH ×3 (08:19→23:45)
[2021-08-07] MEDS: ISOSORBIDE MONONITRATE ER 30 MG TAB.ER.24H PO SCH (08:20)
[2021-08-07] MEDS: HEPARIN SODIUM,PORCINE/PF 5,000 UNIT/0.5 ML SYRINGE SQ SCH ×3 (08:20→23:45)
--- NOTE | 2021-08-07 09:16 | P.PN ---
Subjective Patient is seen in follow-up for acute kidney injury on chronic kidney disease. Renal function improving with diuresis. Nonoliguric. Edema improving. Weight trending down. No changes overnight. Vital signs are stable. General: The patient appeared well nourished and normally developed. HEENT: Head exam is unremarkable. LUNGS: Breath sounds decreased. HEART: Rate and Rhythm are regular. ABDOMEN: Soft, no distention. EXTREMITITES: Lower extremities wrapped. 1+ edema. Objective - Vital Signs Vital signs: Vital Signs Temp 97.9 F 08/07/21 08:10 Pulse 74 08/07/21 08:10 Resp 18 08/07/21 08:10 BP 140/64 08/07/21 08:10 Pulse Ox 97 08/07/21 08:10 Intake & Output 08/06/21 08/07/21 08/07/21 18:59 06:59 18:59 Intake Total 802 240 200 Output Total 2900 1500 1100 Balance -5299 -6544 -900 Weight 122.5 kg 122.5 kg Intake: Oral 802 240 200 Output: Urine 2900 1500 1100 Other: Voiding Method Indwelling Catheter Indwelling Catheter Indwelling Catheter # Bowel Movements 1 - Labs CBC & Chem 7: 08/05/21 08:19 08/06/21 07:26 Labs: Abnormal Lab Results - Last 24 Hours (Table) 08/06/21 08/06/21 08/06/21 Range/Units 11:26 16:49 20:13 POC Glucose (mg/dL) 165 H 184 H 216 H (75-99) mg/dL 08/07/21 Range/Units 06:15 POC Glucose (mg/dL) 128 H (75-99) mg/dL Microbiology - Last 24 Hours (Table) 08/02/21 13:13 Blood Culture - Preliminary Blood No Growth after 96 hours 08/02/21 13:00 Blood Culture - Preliminary Blood No Growth after 96 hours Assessment and Plan Plan: Assessment: 1. Acute kidney injury mostly prerenal secondary to cardiorenal syndrome. Renal function better. Creatinine 1.87 yesterday. 2. Acute on chronic diastolic CHF with severe pulmonary hypertension. 3. Volume overload. Improving with diuresis. 4. Diabetes mellitus. Hypoglycemia resolved. 5. Bradycardia. Beta hesham held. Better. 6. Anemia of chronic kidney disease. Iron deficiency noted. Plan: Maintain IV Lasix. Maintain IV iron. Avoid nephrotoxins. Low-salt diet. 1500 mL fluid restriction. Continue to monitor renal function and urine output. No changes today. Morning labs pending.
[2021-08-07] MEDS: SODIUM FERRIC GLUCONAT-SUCROSE 125 MG in SODIUM CHLORIDE 0.9% 100 ML IVPB SCH (10:52)
--- NOTE | 2021-08-07 11:19 | P.PN ---
Subjective Progress Note Date: 08/07/21 PROGRESS NOTE The patient is a 66-year-old female with known history of chronic kidney disease, CHF with preserved systolic function, anemia. She's feeling better today continues to have good urinary output. She denies any chest discomfort, dizziness or palpitations. She feels stronger. She continues to be on IV Lasix 40 mg IV every 8 hours in addition to hydralazine 50 mg twice a day, isosorbide mononitrate, insulin and Lipitor 40 mg daily PHYSICAL EXAMINATION: Blood pressure 140/64 heart rate 64 LUNGS: [Clear to auscultation] HEART: [Regular rate and rhythm, S1, S2. No S3. systolic murmur at the base] ABDOMEN: [Soft, nontender, no organomegaly] EXTREMETIES: [1-2+ edema] IMPRESSION: 1. CHF with preserved systolic function 2. Chronic kidney disease 3. Hypertension 4. Anemia PLAN: Continue IV diuresis, increase hydralazine dose. Patient would benefit from the addition of Jardiance as an outpatient. Follow renal functions and depending on her progress further recommendations will be made. Objective - Vital Signs Vital signs: Vital Signs Temp 97.9 F 08/07/21 08:10 Pulse 74 08/07/21 08:10 Resp 18 08/07/21 08:10 BP 140/64 08/07/21 08:10 Pulse Ox 97 08/07/21 08:10 Intake & Output 08/06/21 08/07/21 08/07/21 18:59 06:59 18:59 Intake Total 802 240 200 Output Total 2900 1500 1100 Balance -4392 -4400 -900 Weight 122.5 kg 122.5 kg Intake: Oral 802 240 200 Output: Urine 2900 1500 1100 Other: Voiding Method Indwelling Catheter Indwelling Catheter Indwelling Catheter # Bowel Movements 1 - Labs CBC & Chem 7: 08/05/21 08:19 08/06/21 07:26 Labs: Abnormal Lab Results - Last 24 Hours (Table) 08/06/21 08/06/21 08/06/21 Range/Units 11:26 16:49 20:13 POC Glucose (mg/dL) 165 H 184 H 216 H (75-99) mg/dL 08/07/21 Range/Units 06:15 POC Glucose (mg/dL) 128 H (75-99) mg/dL Microbiology - Last 24 Hours (Table) 08/02/21 13:13 Blood Culture - Preliminary Blood No Growth after 96 hours 08/02/21 13:00 Blood Culture - Preliminary Blood No Growth after 96 hours
[2021-08-07 11:28] LABS: Calcium 8.1 mg/dL (8.4-10.2); Potassium 4.2 mmol/L (3.5-5.1)
[2021-08-07 12:27] LABS: Glucose,Whole Blood 157 mg/dL (75-99)
[2021-08-07] MEDS: carvediloL 3.125 MG TAB PO SCH ×2 (13:02→17:40)
[2021-08-07 16:46] LABS: Glucose,Whole Blood 187 mg/dL (75-99)
[2021-08-07 20:39] LABS: Glucose,Whole Blood 175 mg/dL (75-99)
[2021-08-07] MEDS ORDERED: FAMOTIDINE 20 MG/2 ML VIAL IV SCH (21:00)
[2021-08-07] MEDS: ATORVASTATIN 40 MG TAB PO SCH (21:53)
--- NOTE | 2021-08-08 00:09 | P.PN ---
Subjective Progress Note Date: 08/04/21 Patient is a 66-year-old female with a known history of pericardial effusion, CKD stage IV, hypertension, diabetes type 2 on insulin and anxiety/depression, previous history of fall and currently walks with cane was brought to the hospital by EMS. Patient was found on the floor as she slid out of her chair. Patient has not been answering her phone and family was concerned and EMS was called. Patient was found to be hypoglycemic with blood sugar in 40s and low was given oral glucose and D50. Patient's mentation did improve and is currently awake alert and oriented x4. Patient was also found to be bradycardic with heart rate in 40s and hypothermic. On admission temperature was 94.5 and heart rate 45 pulse ox 98% on 2 L oxygen via nasal cannula. Otherwise patient denied any complaints of pain. No chest pain or shortness breath. No cough or sputum production. Denied any recent illnesses. No headache or dizziness or lightheadedness. She could not recollect how she fell down. Laboratory data showed no BC 4.1 hemoglobin 9.2 MCV 104.1 and platelets 208 Sodium 137 potassium 5.1 chloride 108 bicarb is 21 BUN 75 and creatinine 2.21 and blood sugar is 56 lactic acid 0.5 calcium 8.1 and albumin 3.0 UA negative for infection COVID-19 PCR not detected. Chest x-ray showed suspect CHF exacerbation. EKG showed junctional bradycardia. Low voltage QRS. 08/03/2021 Patient is resting in bed. Awake alert and oriented x3.Patient is currently oxygen at 2 L via nasal cannula. Patient is not hypoglycemic. Heart rate improved as well. Patient was given a dose of IV Lasix. Continued on IV Lasix 40 mg every 8 due to acute on chronic CHF with diastolic function. Nephrology was consulted due to CKD stage IV. Patient denied any complaints of chest pain. No nausea vomiting abdominal pain or diarrhea. Denied any dysuria or hematuria. No fever no chills. Laboratory showed WBC 5.2 hemoglobin 8.5 and platelets 198 Sodium 136 potassium 5.2 chloride 110 bicarb is 21 BUN 74 and creatinine 2.36 proBNP 8200 and TSH 3.15 within normal limits and vitamin B12 level is 440. 08/04/2021 Patient is currently lying in the bed. Awake alert and oriented. Breathing status is better. Still having significant bilateral lower extremity edema and swelling. both legs are tammie wrapped. Patient denied any complaints of chest pain or shortness breath. Patient is afebrile. Continued on IV Lasix. Cardiol ogy and nephrology is on board. Laboratory data showed sodium 136 potassium 5.0 chloride 110 bicarb is 22 BUN 77 creatinine 2.3 calcium 7.7. Current medications reviewed. Objective - Vital Signs Vital signs: Vital Signs Temp 97.8 F 08/04/21 08:00 Pulse 64 08/04/21 12:00 Resp 16 08/04/21 08:00 BP 128/61 08/04/21 12:00 Pulse Ox 95 08/04/21 08:44 Intake & Output 08/03/21 08/04/21 08/04/21 18:59 06:59 18:59 Intake Total 840 120 Output Total 1500 800 Balance 840 -1500 -680 Weight 127.5 kg Intake: Oral 840 120 Output: Urine 1500 800 Other: Voiding Method Indwelling Catheter Indwelling Catheter Indwelling Catheter # Bowel Movements 1 - Exam PHYSICAL EXAMINATION: Patient is lying in the bed comfortably, no acute distress, awake alert and oriented.. HEENT: Normocephalic. Neck is supple. Pupils reactive. Nostrils clear. Oral cavity is moist. Neck reveals no JVD, carotid bruits, or thyromegaly. CHEST EXAMINATION: Trachea is central. Symmetrical expansion. basilar crackles. no wheezing.. CARDIAC: Normal S1, S2 with no gallops. No murmurs ABDOMEN: Soft. Bowel sounds normal. No organomegaly. No abdominal bruits. Extremities: 2+ edema. No clubbing or cyanosis Neurologically awake, alert, oriented x3 with well-coordinated movements. No focal deficits noted Skin: No rash or skin lesions. Psychiatric: Cooperative. Nonsuicidal Musculoskeletal: No joint swelling or deformity. Normal range of motion. - Labs CBC & Chem 7: 08/05/21 08:19 08/07/21 10:46 Labs: Abnormal Lab Results - Last 24 Hours (Table) 08/03/21 08/03/21 08/03/21 Range/Units 07:43 16:41 20:27 Sodium (137-145) mmol/L Chloride (98-107) mmol/L BUN (7-17) mg/dL Creatinine (0.52-1.04) mg/dL Glucose (74-99) mg/dL POC Glucose (mg/dL) 182 H 188 H (75-99) mg/dL Calcium (8.4-10.2) mg/dL Iron 35 L (50-170) ug/dL % Saturation 11.64 L (12.00-45.00) 08/04/21 08/04/21 08/04/21 Range/Units 06:15 07:19 11:38 Sodium 136 L (137-145) mmol/L Chloride 110 H (98-107) mmol/L BUN 77 H (7-17) mg/dL Creatinine 2.30 H (0.52-1.04) mg/dL Glucose 134 H (74-99) mg/dL POC Glucose (mg/dL) 151 H 175 H (75-99) mg/dL Calcium 7.7 L (8.4-10.2) mg/dL Iron (50-170) ug/dL % Saturation (12.00-45.00) Microbiology - Last 24 Hours (Table) 08/02/21 13:13 Blood Culture - Preliminary Blood No Growth after 24 hours 08/02/21 13:00 Blood Culture - Preliminary Blood No Growth after 24 hours Assessment and Plan Assessment: Altered mental status due to hypoglycemia resolved now. Bradycardia. Improved. Likely due to hypoglycemia. Coreg on hold. Acute on chronic CHF with diastolic dysfunction. Acute on chronic kidney disease stage IV, fluid load/ History of pericardial effusion Hypothermia improved with bear hugger Hypertension.. Diabetes type 2 insulin-dependent DVT prophylaxis with heparin subcu Plan: Patient was given a dose of D50 in the ER. Blood sugar did improve. Patient is currently on Levemir 14 units at bedtime along with sitagliptin and linagliptin also at home. Continue with insulin sliding scale and follow-up CBC . Coreg is on hold due to bradycardia. Cardiology was consulted due to previous history of pericardial effusion and low voltage criteria. TSH level WNL. c/w IV Lasix and follow-up respiratory status and renal function closely. Continue with oxygen supplementation. Prognosis is guarded. Time with Patient: Greater than 30
--- NOTE | 2021-08-08 00:13 | P.PN ---
Subjective Progress Note Date: 08/05/21 Patient is a 66-year-old female with a known history of pericardial effusion, CKD stage IV, hypertension, diabetes type 2 on insulin and anxiety/depression, previous history of fall and currently walks with cane was brought to the hospital by EMS. Patient was found on the floor as she slid out of her chair. Patient has not been answering her phone and family was concerned and EMS was called. Patient was found to be hypoglycemic with blood sugar in 40s and low was given oral glucose and D50. Patient's mentation did improve and is currently awake alert and oriented x4. Patient was also found to be bradycardic with heart rate in 40s and hypothermic. On admission temperature was 94.5 and heart rate 45 pulse ox 98% on 2 L oxygen via nasal cannula. Otherwise patient denied any complaints of pain. No chest pain or shortness breath. No cough or sputum production. Denied any recent illnesses. No headache or dizziness or lightheadedness. She could not recollect how she fell down. Laboratory data showed no BC 4.1 hemoglobin 9.2 MCV 104.1 and platelets 208 Sodium 137 potassium 5.1 chloride 108 bicarb is 21 BUN 75 and creatinine 2.21 and blood sugar is 56 lactic acid 0.5 calcium 8.1 and albumin 3.0 UA negative for infection COVID-19 PCR not detected. Chest x-ray showed suspect CHF exacerbation. EKG showed junctional bradycardia. Low voltage QRS. 08/03/2021 Patient is resting in bed. Awake alert and oriented x3.Patient is currently oxygen at 2 L via nasal cannula. Patient is not hypoglycemic. Heart rate improved as well. Patient was given a dose of IV Lasix. Continued on IV Lasix 40 mg every 8 due to acute on chronic CHF with diastolic function. Nephrology was consulted due to CKD stage IV. Patient denied any complaints of chest pain. No nausea vomiting abdominal pain or diarrhea. Denied any dysuria or hematuria. No fever no chills. Laboratory showed WBC 5.2 hemoglobin 8.5 and platelets 198 Sodium 136 potassium 5.2 chloride 110 bicarb is 21 BUN 74 and creatinine 2.36 proBNP 8200 and TSH 3.15 within normal limits and vitamin B12 level is 440. 08/04/2021 Patient is currently lying in the bed. Awake alert and oriented. Breathing status is better. Still having significant bilateral lower extremity edema and swelling. both legs are tammie wrapped. Patient denied any complaints of chest pain or shortness breath. Patient is afebrile. Continued on IV Lasix. Cardiol ogy and nephrology is on board. Laboratory data showed sodium 136 potassium 5.0 chloride 110 bicarb is 22 BUN 77 creatinine 2.3 calcium 7.7. 08/05/2021 Patient is currently sitting up in the chair. Still having significant bilateral leg swelling. Continues to IV Lasix. Otherwise patient denies any complaints of chest pain or worsening shortness of breath. Renal function stable. Heart rate is improved to 60s. Recent right heart catheterization at [facility] [place] showed evidence of both precapillary and pulse capillary pulmonary hypertension. Cardiology and pulmonary is on board. Patient has been afebrile. No nausea vomiting abdominal pain or diarrhea. Tolerating oral diet. No cough or sputum production. Current medications reviewed. Objective - Vital Signs Vital signs: Vital Signs Temp 98.2 F 08/05/21 15:54 Pulse 70 08/05/21 15:54 Resp 18 08/05/21 15:54 BP 146/68 08/05/21 15:54 Pulse Ox 95 08/05/21 15:54 Intake & Output 08/05/21 08/05/21 08/06/21 06:59 18:59 06:59 Intake Total 480 500 Output Total 2600 1999 Balance -2120 -1500 Weight 127.5 kg Intake: Oral 480 500 Output: Urine 2600 1999 Other: Voiding Method Indwelling Catheter Indwelling Catheter # Bowel Movements 1 - Exam PHYSICAL EXAMINATION: Patient is lying in the bed comfortably, no acute distress, awake alert and oriented.. HEENT: Normocephalic. Neck is supple. Pupils reactive. Nostrils clear. Oral cavity is moist. Neck reveals no JVD, carotid bruits, or thyromegaly. CHEST EXAMINATION: Trachea is central. Symmetrical expansion. basilar crackles. no wheezing.. CARDIAC: Normal S1, S2 with no gallops. No murmurs ABDOMEN: Soft. Bowel sounds normal. No organomegaly. No abdominal bruits. Extremities: 2+ edema. No clubbing or cyanosis Neurologically awake, alert, oriented x3 with well-coordinated movements. No focal deficits noted Skin: No rash or skin lesions. Psychiatric: Cooperative. Nonsuicidal Musculoskeletal: No joint swelling or deformity. Normal range of motion. - Labs CBC & Chem 7: 08/05/21 08:19 08/07/21 10:46 Labs: Abnormal Lab Results - Last 24 Hours (Table) 08/03/21 08/05/21 08/05/21 Range/Units 07:43 06:27 08:19 RBC (3.80-5.40) m/uL Hgb (11.4-16.0) gm/dL Hct (34.0-46.0) % MCV (80.0-100.0) fL MCHC (31.0-37.0) g/dL RDW (11.5-15.5) % Plt Count (150-450) k/uL Lymphocytes # (1.0-4.8) k/uL Macrocytosis Chloride 110 H (98-107) mmol/L BUN 80 H (7-17) mg/dL Creatinine 2.20 H (0.52-1.04) mg/dL Glucose 126 H (74-99) mg/dL POC Glucose (mg/dL) 132 H (75-99) mg/dL Calcium 7.9 L (8.4-10.2) mg/dL RBC Folate 988 H (280 - 791) ng/mL 08/05/21 08/05/21 08/05/21 Range/Units 08:19 11:55 16:24 RBC 2.77 L (3.80-5.40) m/uL Hgb 8.7 L (11.4-16.0) gm/dL Hct 30.3 L (34.0-46.0) % MCV 109.4 H (80.0-100.0) fL MCHC 28.7 L (31.0-37.0) g/dL RDW 16.1 H (11.5-15.5) % Plt Count 133 L (150-450) k/uL Lymphocytes # 0.6 L (1.0-4.8) k/uL Macrocytosis Marked A Chloride (98-107) mmol/L BUN (7-17) mg/dL Creatinine (0.52-1.04) mg/dL Glucose (74-99) mg/dL POC Glucose (mg/dL) 185 H 182 H (75-99) mg/dL Calcium (8.4-10.2) mg/dL RBC Folate (280 - 791) ng/mL 08/05/21 Range/Units 20:16 RBC (3.80-5.40) m/uL Hgb (11.4-16.0) gm/dL Hct (34.0-46.0) % MCV (80.0-100.0) fL MCHC (31.0-37.0) g/dL RDW (11.5-15.5) % Plt Count (150-450) k/uL Lymphocytes # (1.0-4.8) k/uL Macrocytosis Chloride (98-107) mmol/L BUN (7-17) mg/dL Creatinine (0.52-1.04) mg/dL Glucose (74-99) mg/dL POC Glucose (mg/dL) 173 H (75-99) mg/dL Calcium (8.4-10.2) mg/dL RBC Folate (280 - 791) ng/mL Microbiology - Last 24 Hours (Table) 08/02/21 13:13 Blood Culture - Preliminary Blood No Growth after 72 hours 08/02/21 13:00 Blood Culture - Preliminary Blood No Growth after 72 hours Assessment and Plan Assessment: Altered mental status due to hypoglycemia resolved now. Bradycardia. Improved. Likely due to hypoglycemia. Coreg on hold. Acute on chronic CHF with diastolic dysfunction. Acute on chronic kidney disease stage IV, fluid load/ History of pericardial effusion Hypothermia improved with bear hugger Hypertension.. Diabetes type 2 insulin-dependent DVT prophylaxis with heparin subcu Plan: Patient was given a dose of D50 in the ER. Blood sugar did improve. Patient is currently on Levemir 14 units at bedtime along with sitagliptin and linagliptin also at home. Continue with insulin sliding scale and follow-up CBC . Coreg is on hold due to bradycardia. Cardiology was consulted due to previous history of pericardial effusion and low voltage criteria. TSH level WNL. c/w IV Lasix and follow-up respiratory status and renal function closely. Continue with oxygen supplementation. Prognosis is guarded. Time with Patient: Greater than 30
--- NOTE | 2021-08-08 00:15 | P.PN ---
Subjective Progress Note Date: 08/06/21 Patient is a 66-year-old female with a known history of pericardial effusion, CKD stage IV, hypertension, diabetes type 2 on insulin and anxiety/depression, previous history of fall and currently walks with cane was brought to the hospital by EMS. Patient was found on the floor as she slid out of her chair. Patient has not been answering her phone and family was concerned and EMS was called. Patient was found to be hypoglycemic with blood sugar in 40s and low was given oral glucose and D50. Patient's mentation did improve and is currently awake alert and oriented x4. Patient was also found to be bradycardic with heart rate in 40s and hypothermic. On admission temperature was 94.5 and heart rate 45 pulse ox 98% on 2 L oxygen via nasal cannula. Otherwise patient denied any complaints of pain. No chest pain or shortness breath. No cough or sputum production. Denied any recent illnesses. No headache or dizziness or lightheadedness. She could not recollect how she fell down. Laboratory data showed no BC 4.1 hemoglobin 9.2 MCV 104.1 and platelets 208 Sodium 137 potassium 5.1 chloride 108 bicarb is 21 BUN 75 and creatinine 2.21 and blood sugar is 56 lactic acid 0.5 calcium 8.1 and albumin 3.0 UA negative for infection COVID-19 PCR not detected. Chest x-ray showed suspect CHF exacerbation. EKG showed junctional bradycardia. Low voltage QRS. 08/03/2021 Patient is resting in bed. Awake alert and oriented x3.Patient is currently oxygen at 2 L via nasal cannula. Patient is not hypoglycemic. Heart rate improved as well. Patient was given a dose of IV Lasix. Continued on IV Lasix 40 mg every 8 due to acute on chronic CHF with diastolic function. Nephrology was consulted due to CKD stage IV. Patient denied any complaints of chest pain. No nausea vomiting abdominal pain or diarrhea. Denied any dysuria or hematuria. No fever no chills. Laboratory showed WBC 5.2 hemoglobin 8.5 and platelets 198 Sodium 136 potassium 5.2 chloride 110 bicarb is 21 BUN 74 and creatinine 2.36 proBNP 8200 and TSH 3.15 within normal limits and vitamin B12 level is 440. 08/04/2021 Patient is currently lying in the bed. Awake alert and oriented. Breathing status is better. Still having significant bilateral lower extremity edema and swelling. both legs are tammie wrapped. Patient denied any complaints of chest pain or shortness breath. Patient is afebrile. Continued on IV Lasix. Cardiol ogy and nephrology is on board. Laboratory data showed sodium 136 potassium 5.0 chloride 110 bicarb is 22 BUN 77 creatinine 2.3 calcium 7.7. 08/05/2021 Patient is currently sitting up in the chair. Still having significant bilateral leg swelling. Continues to IV Lasix. Otherwise patient denies any complaints of chest pain or worsening shortness of breath. Renal function stable. Heart rate is improved to 60s. Recent right heart catheterization at [facility] [place] showed evidence of both precapillary and pulse capillary pulmonary hypertension. Cardiology and pulmonary is on board. Patient has been afebrile. No nausea vomiting abdominal pain or diarrhea. Tolerating oral diet. No cough or sputum production. 08/06/2021 Patient is currently resting in bed. Awake alert and oriented. Still having generalized weakness. Also bilateral lower PT significant swelling. Improving slowly. Currently on IV Lasix increased to 40 mg every 8 hourly. Patient is otherwise diuresing well. Renal function is fairly stable. BUN 74 and creatinine 1.87. Coreg is on hold due to bradycardia. Cardiology and nephrology is on board. Blood sugar is controlled. Laboratory data showed sodium 136 potassium 4.4 chloride 109 bicarb is 25 BUN 74 and creatinine 1.87 blood sugar is 133 calcium 8.0 Current medications reviewed. Objective - Vital Signs Vital signs: Vital Signs Temp 98.1 F 08/06/21 12:00 Pulse 71 08/06/21 14:00 Resp 18 08/06/21 14:00 BP 144/70 08/06/21 12:00 Pulse Ox 96 08/06/21 12:00 Intake & Output 08/05/21 08/06/21 08/06/21 18:59 06:59 18:59 Intake Total 500 240 802 Output Total 19990 1800 Balance -7624 -9650 -225 Weight 123.5 kg 122.5 kg Intake: Oral 500 240 802 Output: Urine 19990 1800 Other: Voiding Method Indwelling Catheter Indwelling Catheter Indwelling Catheter # Bowel Movements 1 1 - Exam PHYSICAL EXAMINATION: Patient is lying in the bed comfortably, no acute distress, awake alert and oriented.. HEENT: Normocephalic. Neck is supple. Pupils reactive. Nostrils clear. Oral cavity is moist. Neck reveals no JVD, carotid bruits, or thyromegaly. CHEST EXAMINATION: Trachea is central. Symmetrical expansion. basilar crackles. no wheezing.. CARDIAC: Normal S1, S2 with no gallops. No murmurs ABDOMEN: Soft. Bowel sounds normal. No organomegaly. No abdominal bruits. Extremities: 2+ edema. No clubbing or cyanosis Neurologically awake, alert, oriented x3 with well-coordinated movements. No focal deficits noted Skin: No rash or skin lesions. Psychiatric: Cooperative. Nonsuicidal Musculoskeletal: No joint swelling or deformity. Normal range of motion. - Labs CBC & Chem 7: 08/05/21 08:19 08/07/21 10:46 Labs: Abnormal Lab Results - Last 24 Hours (Table) 08/05/21 08/05/21 08/06/21 Range/Units 16:24 20:16 06:14 Sodium (137-145) mmol/L Chloride (98-107) mmol/L BUN (7-17) mg/dL Creatinine (0.52-1.04) mg/dL Glucose (74-99) mg/dL POC Glucose (mg/dL) 182 H 173 H 121 H (75-99) mg/dL Calcium (8.4-10.2) mg/dL 08/06/21 08/06/21 Range/Units 07:26 11:26 Sodium 136 L (137-145) mmol/L Chloride 109 H (98-107) mmol/L BUN 74 H (7-17) mg/dL Creatinine 1.87 H (0.52-1.04) mg/dL Glucose 133 H (74-99) mg/dL POC Glucose (mg/dL) 165 H (75-99) mg/dL Calcium 8.0 L (8.4-10.2) mg/dL Microbiology - Last 24 Hours (Table) 08/02/21 13:13 Blood Culture - Preliminary Blood No Growth after 96 hours 08/02/21 13:00 Blood Culture - Preliminary Blood No Growth after 96 hours Assessment and Plan Assessment: Acute on chronic CHF with diastolic dysfunction. Acute on chronic kidney disease stage IV, fluid load Altered mental status due to hypoglycemia resolved now. Bradycardia. Improved. Likely due to hypoglycemia. Coreg on hold. History of pericardial effusion Hypothermia improved with bear hugger Hypertension.. Diabetes type 2 insulin-dependent DVT prophylaxis with heparin subcu Plan: Patient was given a dose of D50 in the ER. Blood sugar did improve. Patient is currently on Levemir 14 units at bedtime along with sitagliptin and linagliptin also at home. Continue with insulin sliding scale and follow-up CBC . Coreg is on hold due to bradycardia. Cardiology was consulted due to previous history of pericardial effusion and low voltage criteria. TSH level WNL. c/w IV Lasix and follow-up respiratory status and renal function closely. Continue with oxygen supplementation. Prognosis is guarded. Time with Patient: Greater than 30
--- NOTE | 2021-08-08 00:18 | P.PN ---
Subjective Progress Note Date: 08/07/21 Patient is a 66-year-old female with a known history of pericardial effusion, CKD stage IV, hypertension, diabetes type 2 on insulin and anxiety/depression, previous history of fall and currently walks with cane was brought to the hospital by EMS. Patient was found on the floor as she slid out of her chair. Patient has not been answering her phone and family was concerned and EMS was called. Patient was found to be hypoglycemic with blood sugar in 40s and low was given oral glucose and D50. Patient's mentation did improve and is currently awake alert and oriented x4. Patient was also found to be bradycardic with heart rate in 40s and hypothermic. On admission temperature was 94.5 and heart rate 45 pulse ox 98% on 2 L oxygen via nasal cannula. Otherwise patient denied any complaints of pain. No chest pain or shortness breath. No cough or sputum production. Denied any recent illnesses. No headache or dizziness or lightheadedness. She could not recollect how she fell down. Laboratory data showed no BC 4.1 hemoglobin 9.2 MCV 104.1 and platelets 208 Sodium 137 potassium 5.1 chloride 108 bicarb is 21 BUN 75 and creatinine 2.21 and blood sugar is 56 lactic acid 0.5 calcium 8.1 and albumin 3.0 UA negative for infection COVID-19 PCR not detected. Chest x-ray showed suspect CHF exacerbation. EKG showed junctional bradycardia. Low voltage QRS. 08/03/2021 Patient is resting in bed. Awake alert and oriented x3.Patient is currently oxygen at 2 L via nasal cannula. Patient is not hypoglycemic. Heart rate improved as well. Patient was given a dose of IV Lasix. Continued on IV Lasix 40 mg every 8 due to acute on chronic CHF with diastolic function. Nephrology was consulted due to CKD stage IV. Patient denied any complaints of chest pain. No nausea vomiting abdominal pain or diarrhea. Denied any dysuria or hematuria. No fever no chills. Laboratory showed WBC 5.2 hemoglobin 8.5 and platelets 198 Sodium 136 potassium 5.2 chloride 110 bicarb is 21 BUN 74 and creatinine 2.36 proBNP 8200 and TSH 3.15 within normal limits and vitamin B12 level is 440. 08/04/2021 Patient is currently lying in the bed. Awake alert and oriented. Breathing status is better. Still having significant bilateral lower extremity edema and swelling. both legs are tammie wrapped. Patient denied any complaints of chest pain or shortness breath. Patient is afebrile. Continued on IV Lasix. Cardiol ogy and nephrology is on board. Laboratory data showed sodium 136 potassium 5.0 chloride 110 bicarb is 22 BUN 77 creatinine 2.3 calcium 7.7. 08/05/2021 Patient is currently sitting up in the chair. Still having significant bilateral leg swelling. Continues to IV Lasix. Otherwise patient denies any complaints of chest pain or worsening shortness of breath. Renal function stable. Heart rate is improved to 60s. Recent right heart catheterization at [facility] showed evidence of both precapillary and pulse capillary pulmonary hypertension. Cardiology and pulmonary is on board. Patient has been afebrile. No nausea vomiting abdominal pain or diarrhea. Tolerating oral diet. No cough or sputum production. 08/06/2021 Patient is currently resting in bed. Awake alert and oriented. Still having generalized weakness. Also bilateral lower PT significant swelling. Improving slowly. Currently on IV Lasix increased to 40 mg every 8 hourly. Patient is otherwise diuresing well. Renal function is fairly stable. BUN 74 and creatinine 1.87. Coreg is on hold due to bradycardia. Cardiology and nephrology is on board. Blood sugar is controlled. Laboratory data showed sodium 136 potassium 4.4 chloride 109 bicarb is 25 BUN 74 and creatinine 1.87 blood sugar is 133 calcium 8.0 08/07/2021 Patient is being treated for acute on chronic CHF, pulmonary hypertension and significant leg swelling. Patient is currently sitting in the chair. Awake alert and oriented. Patient generally weak and unable to walk by herself. Still having significant leg swelling. Currently on IV Lasix. No complaints of chest pain or shortness of breath. No cough or sputum production. Coreg was initially on hold due to bradycardia. Restarted at 3.125 mg twice daily today. Continue to monitor heart rate. Patient remains on IV Lasix. Blood sugar is controlled. Pulmonary and nephrology is on board. Current medications reviewed. Objective - Vital Signs Vital signs: Vital Signs Temp 98.1 F 08/07/21 11:30 Pulse 77 08/07/21 17:15 Resp 16 08/07/21 17:15 BP 165/68 08/07/21 17:15 Pulse Ox 90 L 08/07/21 17:15 Intake & Output 08/07/21 08/07/2108/08/22 06:59 18:59 06:59 Intake Total 240 200 Output Total 1500 2200 Balance -1260 -1999 Weight 122.5 kg Intake: Oral 240 200 Output: Urine 1500 2200 Other: Voiding Method Indwelling Catheter Indwelling Catheter - Exam PHYSICAL EXAMINATION: Patient is lying in the bed comfortably, no acute distress, awake alert and oriented.. HEENT: Normocephalic. Neck is supple. Pupils reactive. Nostrils clear. Oral cavity is moist. Neck reveals no JVD, carotid bruits, or thyromegaly. CHEST EXAMINATION: Trachea is central. Symmetrical expansion. basilar crackles. no wheezing.. CARDIAC: Normal S1, S2 with no gallops. No murmurs ABDOMEN: Soft. Bowel sounds normal. No organomegaly. No abdominal bruits. Extremities: 2+ edema. No clubbing or cyanosis Neurologically awake, alert, oriented x3 with well-coordinated movements. No focal deficits noted Skin: No rash or skin lesions. Psychiatric: Cooperative. Nonsuicidal Musculoskeletal: No joint swelling or deformity. Normal range of motion. - Labs CBC & Chem 7: 08/05/21 08:19 08/07/21 10:46 Labs: Abnormal Lab Results - Last 24 Hours (Table) 08/07/21 08/07/21 08/07/21 Range/Units 06:15 10:46 12:22 Sodium 135 L (137-145) mmol/L BUN 73 H (7-17) mg/dL Creatinine 1.69 H (0.52-1.04) mg/dL Glucose 179 H (74-99) mg/dL POC Glucose (mg/dL) 128 H 157 H (75-99) mg/dL Calcium 8.1 L (8.4-10.2) mg/dL 08/07/21 08/07/21 Range/Units 16:44 20:15 Sodium (137-145) mmol/L BUN (7-17) mg/dL Creatinine (0.52-1.04) mg/dL Glucose (74-99) mg/dL POC Glucose (mg/dL) 187 H 175 H (75-99) mg/dL Calcium (8.4-10.2) mg/dL Microbiology - Last 24 Hours (Table) 08/02/21 13:13 Blood Culture - Preliminary Blood No Growth after 120 hours 08/02/21 13:00 Blood Culture - Preliminary Blood No Growth after 120 hours Assessment and Plan Assessment: Acute on chronic CHF with diastolic dysfunction. Acute on chronic kidney disease stage IV, fluid load Altered mental status due to hypoglycemia resolved now. Bradycardia. Improved. Likely due to hypoglycemia. Coreg on hold. History of pericardial effusion Hypothermia improved with bear hugger Hypertension.. Diabetes type 2 insulin-dependent DVT prophylaxis with heparin subcu Plan: Patient was given a dose of D50 in the ER. Blood sugar did improve. Patient is currently on Levemir 14 units at bedtime along with sitagliptin and linagliptin also at home. Continue with insulin sliding scale and follow-up CBC . Coreg was on hold due to bradycardia. Patient was started back on Coreg on 08/07. Cardiology is following. TSH level WNL. c/w IV Lasix and follow-up respiratory status and renal function closely. Continue with oxygen supplementation. Prognosis is guarded.
[2021-08-08 06:19] LABS: Glucose,Whole Blood 159 mg/dL (75-99)
[2021-08-08] MEDS: carvediloL 3.125 MG TAB PO SCH ×2 (06:22→16:54)
[2021-08-08] MEDS: INSULIN ASPART (NovoLOG) 100 UNIT/ML VIAL SQ SCH ×4 (06:22→21:07)
[2021-08-08 06:43] LABS: Anisocytosis Slight; HGB 8.6 gm/dL (11.4-16.0); Hypochromasia Marked; MCH 31.8 pg (25.0-35.0); MCHC 30.6 g/dL (31.0-37.0); Macrocytosis Moderate; Mean Platelet Volume 8.4; Platelet Count 163 k/uL (150-450); RBC 2.69 m/uL (3.80-5.40); RDW 16.1 % (11.5-15.5); WBC 4.7 k/uL (3.8-10.6)
[2021-08-08 06:49] LABS: MCV 103.9 fL (80.0-100.0)
[2021-08-08 07:04] LABS: Calcium 8.1 mg/dL (8.4-10.2); Potassium 4.1 mmol/L (3.5-5.1)
[2021-08-08] MEDS: allopurinoL 100 MG TAB PO SCH (09:26)
[2021-08-08] MEDS: HEPARIN SODIUM,PORCINE/PF 5,000 UNIT/0.5 ML SYRINGE SQ SCH ×3 (09:26→23:11)
[2021-08-08] MEDS: FUROSEMIDE 10 MG/ML 4 ML VIAL IV SCH ×3 (09:26→23:11)
[2021-08-08] MEDS: ISOSORBIDE MONONITRATE ER 30 MG TAB.ER.24H PO SCH (09:27)
[2021-08-08] MEDS: hydrALAZINE HCL 50 MG TAB PO SCH ×2 (09:27→21:08)
[2021-08-08] MEDS: LOPERAMIDE 2 MG CAP PO PRN ×2 (11:57→21:08)
[2021-08-08 11:58] LABS: Glucose,Whole Blood 147 mg/dL (75-99)
--- NOTE | 2021-08-08 13:48 | P.PN ---
Subjective Principal diagnosis: Patient is seen for follow-up for acute kidney injury on top of chronic kidney disease. Renal function has improved and currently stable. Patient is currently being diuresed. There are plans for possible discharge today. No complaints of chest pains or shortness of breath. Objective - Vital Signs Vital signs: Vital Signs Temp 97.9 F 08/08/21 12:00 Pulse 76 08/08/21 12:00 Resp 18 08/08/21 12:00 BP 158/72 08/08/21 12:00 Pulse Ox 95 08/08/21 12:00 Intake & Output 08/07/21 08/08/21 08/08/21 18:59 06:59 18:59 Intake Total 200 10 Output Total 2200 1650 Balance -2000 -1640 Weight 116.8 kg Intake: IV 10 Invasive Line 6 10 Oral 200 Output: Urine 2200 1650 Other: Voiding Method Indwelling Catheter Indwelling Catheter Indwelling Catheter - Exam Patient is awake comfortable not in any acute distress. Alert oriented 3. Examination of the heart S1 and S2 Examination lungs bilateral breath sounds are heard Abdomen is soft nontender obese Exam showed lower extremity shows chronic skin changes chronic edema. [employer] exam grossly intact - Labs CBC & Chem 7: 08/08/21 05:55 08/08/21 05:55 Labs: Abnormal Lab Results - Last 24 Hours (Table) 08/07/21 08/07/21 08/08/21 Range/Units 16:44 20:15 05:42 RBC (3.80-5.40) m/uL Hgb (11.4-16.0) gm/dL Hct (34.0-46.0) % MCV (80.0-100.0) fL MCHC (31.0-37.0) g/dL RDW (11.5-15.5) % Sodium (137-145) mmol/L BUN (7-17) mg/dL Creatinine (0.52-1.04) mg/dL Glucose (74-99) mg/dL POC Glucose (mg/dL) 187 H 175 H 159 H (75-99) mg/dL Calcium (8.4-10.2) mg/dL 08/08/21 08/08/21 08/08/21 Range/Units 05:55 05:55 11:54 RBC 2.69 L (3.80-5.40) m/uL Hgb 8.6 L (11.4-16.0) gm/dL Hct 28.0 L (34.0-46.0) % MCV 103.9 H D (80.0-100.0) fL MCHC 30.6 L (31.0-37.0) g/dL RDW 16.1 H (11.5-15.5) % Sodium 136 L (137-145) mmol/L BUN 71 H (7-17) mg/dL Creatinine 1.61 H (0.52-1.04) mg/dL Glucose 148 H (74-99) mg/dL POC Glucose (mg/dL) 147 H (75-99) mg/dL Calcium 8.1 L (8.4-10.2) mg/dL Microbiology - Last 24 Hours (Table) 08/02/21 13:13 Blood Culture - Preliminary Blood No Growth after 120 hours 08/02/21 13:00 Blood Culture - Preliminary Blood No Growth after 120 hours Assessment and Plan Assessment: 1. Acute kidney injury mostly prerenal and cardiorenal currently stable 2. Acute on chronic diastolic CHF with severe pulmonary hypertension 3. Volume overload currently improving with diuresis 4. Type 2 diabetes 5. Bradycardia beta blockers currently on hold 6. Anemia of chronic disease. Iron deficiency was noted currently maintained on IV iron Plan: Okay to discharge patient. Will continue with Lasix 40 mg twice a day and f ollow-up as outpatient in about 1 week's time. Maintain salt and fluid restriction.
--- NOTE | 2021-08-08 14:27 | P.PN ---
Subjective This is a 66 year old female with a past medical history significant for uterine cancer with previous radiation, chronic diarrhea since having radiation, bilateral lymphedema, severe pulmonary hypertension, chronic diastolic congestive heart failure, chronic kidney disease, chronic pericardial effusion, hypertension, and hyperlipidemia. Patient follows in the office with Dr. Li. We have been asked to see the patient in consultation for bradycardia and congestive heart failure. Patient was brought to the hospital per EMS yesterday after her family was unable to get a hold of her. EMS found the patient unresponsive on the floor of her home. Patient was found to be bradycardic with a heart rate in the 40s. She was also found to be hypoglycemic with a blood sugar in the 40s. Patient has been started on IV Lasix. Her beta hesham has been decreased. 08/08/2021 Patient examined this morning at the bedside. Patient denies chest pain or pressure. She continues to have some shortness of breath, not at her baseline. Continues to have bilateral lower extremity swelling. She remains on room air oxygen saturations greater than 92%. She remains on IV Lasix 40 mg every 8 hours. Kidney function stable today and improving at 1.6. Nephrology is following. Telemetry reveals sinus mechanism in the 70s. No further episodes of bradycardia. Blood pressure stable at 158/72. Fluid balance over the last 24 hours is -3640 mL. Echocardiogram revealed EF of 5055 percent, RV is moderately to severely enlarged, mild mitral retention, mild tricuspid regurgitation, moderate pulmonary hypertension with RVSP of 54 mmHg, moderate generalized pericardial effusion, moderate pleural effusion PHYSICAL EXAM: VITAL SIGNS: Reviewed. GENERAL: Well-developed in no acute distress. HEENT: Neck supple. No JVD LUNGS: Respirations even and unlabored. Lungs diminished with a few crackles at the bases. HEART: Regular rate and rhythm. S1 and S2 heard. ABDOMEN: Soft. Nondistended. Nontender. EXTREMITIES: Normal range of motion. No clubbing or cyanosis. Peripheral pulses intact. 2+ bilateral lower extremity edema NEUROLOGIC: Awake and alert. Oriented x 3. ASSESSMENT: Bradycardia Hypoglycemia Acute on chronic diastolic congestive heart failure Acute on chronic kidney disease Chronic pericardial effusion Hypertension Hyperlipidemia History of lymphedema Chronic anemia History of uterine cancer with radiation History of chronic diarrhea since radiation treatments PLAN: Recommend continue IV Lasix for additional 24 hours Continue beta hesham carvedilol 3.125 mg twice a day Continue hydralazine 75 mg twice a day Accurate I&O Daily weights Patient may benefit from SGLT2 inhibitor such as Jardiance secondary to diastolic HF. This may be discussed on an outpatient basis. Further recommendations pending patient course Nurse practitioner note has been reviewed by physician. Signing provider agrees with the documented findings, assessment, and plan of care. Objective - Vital Signs Vital signs: Vital Signs Temp 97.9 F 08/08/21 12:00 Pulse 76 08/08/21 12:00 Resp 18 08/08/21 12:00 BP 158/72 08/08/21 12:00 Pulse Ox 95 08/08/21 12:00 Intake & Output 08/07/21 08/08/21 08/08/21 18:59 06:59 18:59 Intake Total 200 10 Output Total 2200 1650 Balance -1999 -1640 Weight 116.8 kg Intake: IV 10 Invasive Line 6 10 Oral 200 Output: Urine 2200 1650 Other: Voiding Method Indwelling Catheter Indwelling Catheter Indwelling Catheter - Labs CBC & Chem 7: 08/08/21 05:55 08/08/21 05:55 Labs: Abnormal Lab Results - Last 24 Hours (Table) 08/07/21 08/07/21 08/08/21 Range/Units 16:44 20:15 05:42 RBC (3.80-5.40) m/uL Hgb (11.4-16.0) gm/dL Hct (34.0-46.0) % MCV (80.0-100.0) fL MCHC (31.0-37.0) g/dL RDW (11.5-15.5) % Sodium (137-145) mmol/L BUN (7-17) mg/dL Creatinine (0.52-1.04) mg/dL Glucose (74-99) mg/dL POC Glucose (mg/dL) 187 H 175 H 159 H (75-99) mg/dL Calcium (8.4-10.2) mg/dL 08/08/21 08/08/21 08/08/21 Range/Units 05:55 05:55 11:54 RBC 2.69 L (3.80-5.40) m/uL Hgb 8.6 L (11.4-16.0) gm/dL Hct 28.0 L (34.0-46.0) % MCV 103.9 H D (80.0-100.0) fL MCHC 30.6 L (31.0-37.0) g/dL RDW 16.1 H (11.5-15.5) % Sodium 136 L (137-145) mmol/L BUN 71 H (7-17) mg/dL Creatinine 1.61 H (0.52-1.04) mg/dL Glucose 148 H (74-99) mg/dL POC Glucose (mg/dL) 147 H (75-99) mg/dL Calcium 8.1 L (8.4-10.2) mg/dL Microbiology - Last 24 Hours (Table) 08/02/21 13:13 Blood Culture - Preliminary Blood No Growth after 120 hours 08/02/21 13:00 Blood Culture - Preliminary Blood No Growth after 120 hours
[2021-08-08 16:36] LABS: Glucose,Whole Blood 179 mg/dL (75-99)
--- NOTE | 2021-08-08 20:21 | P.PN ---
Subjective Patient is a 66-year-old female with a known history of pericardial effusion, CKD stage IV, hypertension, diabetes type 2 on insulin and anxiety/depression, previous history of fall and currently walks with cane was brought to the hospital by EMS. Patient was found on the floor as she slid out of her chair. Patient has not been answering her phone and family was concerned and EMS was called. Patient was found to be hypoglycemic with blood sugar in 40s and low was given oral glucose and D50. Patient's mentation did improve and is currently awake alert and oriented x4. Patient was also found to be bradycardic with heart rate in 40s and hypothermic. On admission temperature was 94.5 and heart rate 45 pulse ox 98% on 2 L oxygen via nasal cannula. Otherwise patient denied any complaints of pain. No chest pain or shortness breath. No cough or sputum production. Denied any recent illnesses. No headache or dizziness or lightheadedness. She could not recollect how she fell down. Laboratory data showed no BC 4.1 hemoglobin 9.2 MCV 104.1 and platelets 208 Sodium 137 potassium 5.1 chloride 108 bicarb is 21 BUN 75 and creatinine 2.21 and blood sugar is 56 lactic acid 0.5 calcium 8.1 and albumin 3.0 UA negative for infection COVID-19 PCR not detected. Chest x-ray showed suspect CHF exacerbation. EKG showed junctional bradycardia. Low voltage QRS. 08/03/2021 Patient is resting in bed. Awake alert and oriented x3.Patient is currently oxygen at 2 L via nasal cannula. Patient is not hypoglycemic. Heart rate improved as well. Patient was given a dose of IV Lasix. Continued on IV Lasix 40 mg every 8 due to acute on chronic CHF with diastolic function. Nephrology was consulted due to CKD stage IV. Patient denied any complaints of chest pain. No nausea vomiting abdominal pain or diarrhea. Denied any dysuria or hematuria. No fever no chills. Laboratory showed WBC 5.2 hemoglobin 8.5 and platelets 198 Sodium 136 potassium 5.2 chloride 110 bicarb is 21 BUN 74 and creatinine 2.36 proBNP 8200 and TSH 3.15 within normal limits and vitamin B12 level is 440. 08/04/2021 Patient is currently lying in the bed. Awake alert and oriented. Breathing status is better. Still having significant bilateral lower extremity edema and swelling. both legs are tammie wrapped. Patient denied any complaints of chest pain or shortness breath. Patient is afebrile. Continued on IV Lasix. Cardiology and nephrology is on board. Laboratory data showed sodium 136 potassium 5.0 chloride 110 bicarb is 22 BUN 77 creatinine 2.3 calcium 7.7. 08/05/2021 Patient is currently sitting up in the chair. Still having significant bilateral leg swelling. Continues to IV Lasix. Otherwise patient denies any complaints of chest pain or worsening shortness of breath. Renal function stable. Heart rate is improved to 60s. Recent right heart catheterization at [facility] [place] showed evidence of both precapillary and pulse capillary pulmonary hypertension. Cardiology and pulmonary is on board. Patient has been afebrile. No nausea vomiting abdominal pain or diarrhea. Tolerating oral diet. No cough or sputum production. 08/06/2021 Patient is currently resting in bed. Awake alert and oriented. Still having generalized weakness. Also bilateral lower PT significant swelling. Improving slowly. Currently on IV Lasix increased to 40 mg every 8 hourly. Patient is otherwise diuresing well. Renal function is fairly stable. BUN 74 and creatinine 1.87. Coreg is on hold due to bradycardia. Cardiology and nephrology is on board. Blood sugar is controlled. Laboratory data showed sodium 136 potassium 4.4 chloride 109 bicarb is 25 BUN 74 and creatinine 1.87 blood sugar is 133 calcium 8.0 08/07/2021 Patient is being treated for acute on chronic CHF, pulmonary hypertension and significant leg swelling. Patient is currently sitting in the chair. Awake alert and oriented. Patient generally weak and unable to walk by herself. Still having significant leg swelling. Currently on IV Lasix. No complaints of chest pain or shortness of breath. No cough or sputum production. Coreg was initially on hold due to bradycardia. Restarted at 3.125 mg twice daily today. Continue to monitor heart rate. Patient remains on IV Lasix. Blood sugar is controlled. Pulmonary and nephrology is on board. Subjective: 08/08/2021 This is a pleasant 66 years old female who presents with diastolic CHF with ejection fraction of 50-55 percent, she is treated with IV Lasix 40 mg every 8 hours, she doesn't have much dyspnea as she sitting in chair most of the time, she has some leg swelling with dressing and in both legs, patient is minimally symptomatic and she wants to go to [facility] upon discharge for rehab besides she has an appointment with her oncologist tomorrow at [place] was here in [place] on, because of this we are planning to discharge the patient today however [facility] stated they don't have elevated available for today. Besides also sat instructor want her to receive IV Lasix for 1 more day. Patient can be switched to oral Lasix to 40 mg twice daily tomorrow and be considered for discharge if she is keeping doing well and stable. Her sat instructor is Dr. Gilman and stator plate washer Dr. Park, patient was instructed to follow up with them upon discharge and she agrees. Also patient states that she had colonoscopy last year and that was well for her anemia. We'll keep monitoring hemoglobin today is 8.6 while creatinine is stable at 1.6. Objective - Vital Signs Vital signs: Vital Signs Temp 97.9 F 08/08/21 12:00 Pulse 76 08/08/21 14:00 Resp 18 08/08/21 14:00 BP 158/72 08/08/21 12:00 Pulse Ox 95 08/08/21 12:00 Intake & Output 08/07/21 08/08/21 08/08/21 18:59 06:59 18:59 Intake Total 200 10 Output Total 2200 1650 Balance -2000 -1640 Weight 116.8 kg Intake: IV 10 Invasive Line 6 10 Oral 200 Output: Urine 2200 1650 Other: Voiding Method Indwelling Catheter Indwelling Catheter Indwelling Catheter - Exam GENERAL: The patient is alert and oriented x3, not in any acute distress. Well developed, well nourished. HEENT: Pupils are round and equally reacting to light. EOMI. No scleral icterus. No conjunctival pallor. Normocephalic, atraumatic. No pharyngeal erythema. No thyromegaly. CARDIOVASCULAR: S1 and S2 present. No murmurs, rubs, or gallops. -PULMONARY: Chest is clear to auscultation, no wheezing. mild bilateral basal crepitation ABDOMEN: Soft, nontender, nondistended, normoactive bowel sounds. No palpable organomegaly. MUSCULOSKELETAL: No joint swelling or deformity. -EXTREMITIES: No cyanosis, clubbing,. Improvement bilateral pitting like edema NEUROLOGICAL: Gross neurological examination did not reveal any focal deficits. SKIN: No rashes. no petechiae. - Labs CBC & Chem 7: 08/08/21 05:55 08/08/21 05:55 Labs: Abnormal Lab Results - Last 24 Hours (Table) 08/07/21 08/07/21 08/08/21 Range/Units 16:44 20:15 05:42 RBC (3.80-5.40) m/uL Hgb (11.4-16.0) gm/dL Hct (34.0-46.0) % MCV (80.0-100.0) fL MCHC (31.0-37.0) g/dL RDW (11.5-15.5) % Sodium (137-145) mmol/L BUN (7-17) mg/dL Creatinine (0.52-1.04) mg/dL Glucose (74-99) mg/dL POC Glucose (mg/dL) 187 H 175 H 159 H (75-99) mg/dL Calcium (8.4-10.2) mg/dL 08/08/21 08/08/21 08/08/21 Range/Units 05:55 05:55 11:54 RBC 2.69 L (3.80-5.40) m/uL Hgb 8.6 L (11.4-16.0) gm/dL Hct 28.0 L (34.0-46.0) % MCV 103.9 H D (80.0-100.0) fL MCHC 30.6 L (31.0-37.0) g/dL RDW 16.1 H (11.5-15.5) % Sodium 136 L (137-145) mmol/L BUN 71 H (7-17) mg/dL Creatinine 1.61 H (0.52-1.04) mg/dL Glucose 148 H (74-99) mg/dL POC Glucose (mg/dL) 147 H (75-99) mg/dL Calcium 8.1 L (8.4-10.2) mg/dL Microbiology - Last 24 Hours (Table) 08/02/21 13:00 Blood Culture - Final Blood No Growth after 144 hours 08/02/21 13:13 Blood Culture - Preliminary Blood No Growth after 120 hours Assessment and Plan Assessment: Acute on chronic CHF with diastolic dysfunction. chronic kidney disease stage IV, fluid load History of hematuria cancer, follow-up with oncologist as an outpatient Chronic Anemia Bradycardia. Improved. Likely due to hypoglycemia. History of pericardial effusion Hypothermia improved with bear hugger Hypertension.. Diabetes type 2 insulin-dependent Plan: This is a pleasant 66 years old female who presents with diastolic CHF Continue with IV Lasix and switch to oral Lasix upon discharge Cardiology and nephrology team on the case. Follow-up with her oncologist as an outpatient Labs and medication were reviewed.. Continue same treatment. Continue with symptomatic treatment. Resume home medication. Monitor lytes and vitals. DVT and GI prophylaxis. Further recommendationsas per clinical course of the patien t DVT prophylaxis: Subcutaneous heparin GI Prophylaxis: Pepcid PT/OT: Discharged to [facility] when a stable
[2021-08-08 20:28] LABS: Glucose,Whole Blood 178 mg/dL (75-99)
[2021-08-08] MEDS ORDERED: FAMOTIDINE 20 MG TAB PO SCH (21:00)
[2021-08-08] MEDS: ATORVASTATIN 40 MG TAB PO SCH (21:08)
[2021-08-09 06:11] LABS: Glucose,Whole Blood 134 mg/dL (75-99)
[2021-08-09] MEDS: INSULIN ASPART (NovoLOG) 100 UNIT/ML VIAL SQ SCH ×2 (06:12→12:23)
[2021-08-09] MEDS: carvediloL 3.125 MG TAB PO SCH (06:19)
[2021-08-09] MEDS: allopurinoL 100 MG TAB PO SCH (09:02)
[2021-08-09] MEDS: FUROSEMIDE 10 MG/ML 4 ML VIAL IV SCH ×2 (09:03→16:30)
[2021-08-09] MEDS: ISOSORBIDE MONONITRATE ER 30 MG TAB.ER.24H PO SCH (09:03)
[2021-08-09] MEDS: hydrALAZINE HCL 50 MG TAB PO SCH (09:03)
[2021-08-09] MEDS: HEPARIN SODIUM,PORCINE/PF 5,000 UNIT/0.5 ML SYRINGE SQ SCH ×2 (09:03→16:31)
[2021-08-09] MEDS: LOPERAMIDE 2 MG CAP PO PRN (09:07)
[2021-08-09 11:04] VITALS: RESP 18
[2021-08-09 11:42] LABS: Calcium 8.2 mg/dL (8.4-10.2); Magnesium 1.9 mg/dL (1.6-2.3); Potassium 3.7 mmol/L (3.5-5.1)
[2021-08-09 11:43] LABS: Glucose,Whole Blood 152 mg/dL (75-99)
[2021-08-09 12:09] VITALS: BMI 40.3
--- NOTE | 2021-08-09 13:34 | P.DS ---
Providers Date of admission: 08/02/21 15:06 Attending physician: Summer Castellanos Consults: 08/02/21 15:03 Consult Physician Urgent Consulting Provider: [facility] Consult Reason/Comments: Bradycardia, pulmonary edema Do you want consulting provider notified?: Yes 08/03/21 11:53 Consult Physician Routine Consulting Provider: Yash [place] Consult Reason/Comments: Acute on CKD Do you want consulting provider notified?: Yes Primary care physician: [facility] Course: Patient is admitted for can start failure chronic diastolic dysfunction with acute exacerbation patient presented with anasarca, hyperglycemia, acute renal failure and hyponatremia which is probably hypovolemic hyponatremia. Patient is still has some swelling with the is bandages. Patient has a competent of venous insufficiency. Lantus is being disorder patient is being continued on Linagliptan. Patient will benefit from S GLP 1 inhibitors as an outpatient. Patient is a otherwise clinically doing well be discharged today patient apparently had hematuria will follow-up with urology as outpatient. Patient was started on Lasix 60 twice a day patient is on 40 3 times a day of Lasix. Patient was also on lisinopril which is not being continued because of acute renal failure patient's present creatinine is 1.3 which is a significant improvement since admission. PHYSICAL EXAMINATION: GENERAL: The patient is alert and oriented x3, not in any acute distress. Well developed, well nourished. HEENT: Pupils are round and equally reacting to light. EOMI. No scleral icterus. No conjunctival pallor. Normocephalic, atraumatic. No pharyngeal erythema. No thyromegaly. CARDIOVASCULAR: S1 and S2 present. No murmurs, rubs, or gallops. PULMONARY: Chest is clear to auscultation, no wheezing or crackles. ABDOMEN: Soft, nontender, nondistended, normoactive bowel sounds. No palpable organomegaly. MUSCULOSKELETAL: No joint swelling or deformity. EXTREMITIES: No cyanosis, clubbing, has lower extremity edema with Denys bandages NEUROLOGICAL: Gross neurological examination did not reveal any focal deficits. SKIN: No rashes. Assessment and Plan Assessment: Acute on chronic CHF with diastolic dysfunction. Acute on chronic kidney disease stage III, fluid load.acute renal failure secondary to prerenal azotemia from congestive heart failure Altered mental status due to hypoglycemia resolved now. Bradycardia. Improved. Coreg dose was decreased History of pericardial effusion Hypertension.. Diabetes type 2 insulin-dependent -hematuria follow-up with urology as an outpatient and repeat urine analysis as outpatient. Plan - Discharge Summary New Discharge Prescriptions: New carvediloL [Coreg] 3.125 mg PO BID-W/MEALS tab Isosorbide Mononitrate ER [Imdur] 30 mg PO DAILY tablet INSULIN LISPRO (humaLOG) [humaLOG] 1 injection SQ DIRECTED #10 ml hydrALAZINE HCL [Apresoline] 50 mg PO TID tab Furosemide [Lasix] 60 mg PO BID #20 tab Continue Linagliptin [Tradjenta] 5 mg PO DAILY Atorvastatin [Lipitor] 40 mg PO HS Allopurinol [Zyloprim] 100 mg PO DAILY Changed Potassium Chloride ER [K-Dur 20] 20 meq PO BID #0 Discontinued Carvedilol [Coreg] 25 mg PO BID Insulin Glargine [Lantus Vial] 14 units SQ HS sitaGLIPtin PHOSPHATE [Januvia] 25 mg PO DAILY amLODIPine [Norvasc] 10 mg PO DAILY lisinopriL [Zestril] 20 mg PO DAILY hydrALAZINE HCL [Apresoline] 25 mg PO TID Discharge Medication List Allopurinol [Zyloprim] 100 mg PO DAILY 12/16/20 [History] Atorvastatin [Lipitor] 40 mg PO HS 08/02/21 [History] Linagliptin [Tradjenta] 5 mg PO DAILY 08/02/21 [History] Furosemide [Lasix] 60 mg PO BID #20 tab 08/09/21 [Rx] INSULIN LISPRO (humaLOG) [humaLOG] 1 injection SQ DIRECTED #10 ml 08/09/21 [Rx] Isosorbide Mononitrate ER [Imdur] 30 mg PO DAILY tablet 08/09/21 [Rx] Potassium Chloride ER [K-Dur 20] 20 meq PO BID #0 08/09/21 [Rx] carvediloL [Coreg] 3.125 mg PO BID-W/MEALS tab 08/09/21 [Rx] hydrALAZINE HCL [Apresoline] 50 mg PO TID tab 08/09/21 [Rx] Follow up Appointment(s)/Referral(s): Danish Morris MD [STAFF PHYSICIAN] - 1 Week Som Odom MD [STAFF PHYSICIAN] - 1 Week Discharge Disposition: TRANSFER TO SNF/ECF
--- NOTE | 2021-08-09 14:12 | P.PN ---
Subjective This is a 66 year old female with a past medical history significant for uterine cancer with previous radiation, chronic diarrhea since having radiation, bilateral lymphedema, severe pulmonary hypertension, chronic diastolic congestive heart failure, chronic kidney disease, chronic pericardial effusion, hypertension, and hyperlipidemia. Patient follows in the office with Dr. Li. We have been asked to see the patient in consultation for bradycardia and congestive heart failure. Patient was brought to the hospital per EMS yesterday after her family was unable to get a hold of her. EMS found the patient unresponsive on the floor of her home. Patient was found to be bradycardic with a heart rate in the 40s. She was also found to be hypoglycemic with a blood sugar in the 40s. Patient has been started on IV Lasix. Her beta hesham has been decreased. 08/09/2021 Patient examined this morning at the bedside. Patient denies chest pain or pressure. She continues to state she is not at her baseline, but her breathing has improved. Continues to have bilateral lower extremity swelling. She remains on room air oxygen saturations greater than 92%. She remains on IV Lasix 40 mg every 8 hours. Kidney function stable today and improving at 1.48. Nephrology is following. Telemetry reveals sinus mechanism in the 70s. No further episodes of bradycardia. Blood pressure stable at 151/66. Fluid balance over the last 24 hours is -3310 mL. Echocardiogram revealed EF of 5055 percent, RV is moderately to severely enlarged, mild mitral retention, mild tricuspid regurgitation, moderate pulmonary hypertension with RVSP of 54 mmHg, moderate generalized pericardial effusion, moderate pleural effusion PHYSICAL EXAM: VITAL SIGNS: Reviewed. GENERAL: Well-developed in no acute distress. HEENT: Neck supple. No JVD LUNGS: Respirations even and unlabored. Lungs diminished with a few crackles at the bases. HEART: Regular rate and rhythm. S1 and S2 heard. ABDOMEN: Soft. Nondistended. Nontender. EXTREMITIES: Normal range of motion. No clubbing or cyanosis. Peripheral pulses intact. 2+ bilateral lower extremity edema NEUROLOGIC: Awake and alert. Oriented x 3. ASSESSMENT: Bradycardia Hypoglycemia Acute on chronic diastolic congestive heart failure Acute on chronic kidney disease Chronic pericardial effusion Hypertension Hyperlipidemia History of lymphedema Chronic anemia History of uterine cancer with radiation History of chronic diarrhea since radiation treatments PLAN: Recommend continue IV Lasix for additional 24 hours, patient is diuresing well with improvement in kidney function Continue beta hesham carvedilol 3.125 mg twice a day Continue hydralazine 75 mg twice a day Accurate I&O Daily weights Patient may benefit from SGLT2 inhibitor such as Jardiance secondary to diastolic HF. This may be discussed on an outpatient basis. Further recommendations pending patient course Nurse practitioner note has been reviewed by physician. Signing provider agrees with the documented findings, assessment, and plan of care. Objective - Vital Signs Vital signs: Vital Signs Temp 98.4 F 08/09/21 08:00 Pulse 77 08/09/21 08:00 Resp 18 08/09/21 08:00 BP 151/66 08/09/21 08:00 Pulse Ox 91 L 08/09/21 08:00 Intake & Output 08/08/21 08/09/21 08/09/21 18:59 06:59 18:59 Intake Total 240 800 Output Total 2300 1250 Balance -2300 -1010 800 Weight 116.8 kg Intake: Oral 240 800 Output: Urine 2300 1250 Other: Voiding Method Indwelling Catheter Indwelling Catheter Bedside Commode - Labs CBC & Chem 7: 08/08/21 05:55 08/09/21 10:51 Labs: Abnormal Lab Results - Last 24 Hours (Table) 08/08/21 08/08/21 08/09/21 Range/Units 16:34 20:19 06:08 BUN (7-17) mg/dL Creatinine (0.52-1.04) mg/dL Glucose (74-99) mg/dL POC Glucose (mg/dL) 179 H 178 H 134 H (75-99) mg/dL Calcium (8.4-10.2) mg/dL 08/09/21 08/09/21 Range/Units 10:51 11:40 BUN 65 H (7-17) mg/dL Creatinine 1.48 H (0.52-1.04) mg/dL Glucose 149 H (74-99) mg/dL POC Glucose (mg/dL) 152 H (75-99) mg/dL Calcium 8.2 L (8.4-10.2) mg/dL Microbiology - Last 24 Hours (Table) 08/02/21 13:13 Blood Culture - Final Blood No Growth after 144 hours 08/02/21 13:00 Blood Culture - Final Blood No Growth after 144 hours
--- NOTE | 2021-08-09 15:07 | P.PN ---
Subjective Principal diagnosis: Patient is seen for follow-up for acute kidney injury on top of chronic kidney disease. Renal function has improved and currently stable. Patient is currently being diuresed. There are plans for possible discharge today. No complaints of chest pains or shortness of breath. Objective - Vital Signs Vital signs: Vital Signs Temp 98.5 F 08/09/21 12:10 Pulse 71 08/09/21 14:00 Resp 18 08/09/21 14:00 BP 149/72 08/09/21 12:10 Pulse Ox 92 L 08/09/21 12:10 Intake & Output 08/08/21 08/09/21 08/09/21 18:59 06:59 18:59 Intake Total 240 800 Output Total 2300 1250 Balance -2300 -1010 800 Weight 116.8 kg Intake: Oral 240 800 Output: Urine 2300 1250 Other: Voiding Method Indwelling Catheter Indwelling Catheter Bedside Commode # Voids 4 # Bowel Movements 1 - Exam Patient is awake comfortable not in any acute distress. Alert oriented 3. Examination of the heart S1 and S2 Examination lungs bilateral breath sounds are heard Abdomen is soft nontender obese Exam showed lower extremity shows chronic skin changes chronic edema. WARRANTY ADMINISTRATOR exam grossly intact - Labs CBC & Chem 7: 08/08/21 05:55 08/09/21 10:51 Labs: Abnormal Lab Results - Last 24 Hours (Table) 08/08/21 08/08/21 08/09/21 Range/Units 16:34 20:19 06:08 BUN (7-17) mg/dL Creatinine (0.52-1.04) mg/dL Glucose (74-99) mg/dL POC Glucose (mg/dL) 179 H 178 H 134 H (75-99) mg/dL Calcium (8.4-10.2) mg/dL 08/09/21 08/09/21 Range/Units 10:51 11:40 BUN 65 H (7-17) mg/dL Creatinine 1.48 H (0.52-1.04) mg/dL Glucose 149 H (74-99) mg/dL POC Glucose (mg/dL) 152 H (75-99) mg/dL Calcium 8.2 L (8.4-10.2) mg/dL Microbiology - Last 24 Hours (Table) 08/02/21 13:13 Blood Culture - Final Blood No Growth after 144 hours 08/02/21 13:00 Blood Culture - Final Blood No Growth after 144 hours Assessment and Plan Assessment: 1. Acute kidney injury mostly prerenal and cardiorenal currently stable 2. Acute on chronic diastolic CHF with severe pulmonary hypertension 3. Volume overload currently improving with diuresis 4. Type 2 diabetes 5. Bradycardia beta blockers currently on hold 6. Anemia of chronic disease. Iron deficiency was noted currently maintained on IV iron Plan: Okay to discharge patient. Will continue with Lasix 40 mg twice a day and follow-up as outpatient in about 1 week's time. Maintain salt and fluid restriction.
[2021-08-09 16:34] VITALS: BP 141/75; PULSE 75; TEMP 98.9
== END 2021-08-09 16:34 | DRG 637 ==
LOC: EC 12:37 → 3SCARD 15:06
PROVIDERS: ADMIT Internal Medicine; ATTEND Internal Medicine
DX: E11.649 Type 2 diabetes mellitus with hypoglycemia without coma (principal); I50.33 Acute on chronic diastolic (congestive) heart failure; I13.0 Hypertensive heart and chronic kidney disease with heart failure and stage 1 through stage 4 chronic kidney disease, or unspecified chronic kidney disease; E87.1 Hypo-osmolality and hyponatremia; I31.3 Pericardial effusion (noninflammatory); N18.4 Chronic kidney disease, stage 4 (severe); N17.9 Acute kidney failure, unspecified; W19.XXXA Unspecified fall, initial encounter; D63.1 Anemia in chronic kidney disease; E11.22 Type 2 diabetes mellitus with diabetic chronic kidney disease; E61.1 Iron deficiency; Z20.822 Contact with and (suspected) exposure to COVID-19; E78.5 Hyperlipidemia, unspecified; E86.1 Hypovolemia; F32.A Depression, unspecified; F41.9 Anxiety disorder, unspecified; I27.20 Pulmonary hypertension, unspecified; I87.2 Venous insufficiency (chronic) (peripheral); I89.0 Lymphedema, not elsewhere classified; Z79.4 Long term (current) use of insulin; Z79.899 Other long term (current) drug therapy; Z82.49 Family history of ischemic heart disease and other diseases of the circulatory system; Z85.42 Personal history of malignant neoplasm of other parts of uterus; Z92.3 Personal history of irradiation; R00.1 Bradycardia, unspecified; R68.0 Hypothermia, not associated with low environmental temperature; R19.7 Diarrhea, unspecified
CPT/HCPCS: 36415; 71045; 80048; 80053; 81001; 82607; 82728; 82747; 83540; 83550; 83605; 83735; 83880; 84443; 84484; 85025; 85027; 85610; 85730; 87040; 87635; 93005; 93306; 94760; 99291

== ENCOUNTER 2021-12-10 15:56 | Inpatient (IN) | payer MEDICARE, BC ==
[2021-12-10] MEDS ORDERED: SODIUM CHLORIDE 0.9% 1,000 ML IV STA (16:01)
--- NOTE | 2021-12-10 16:02 | ED ---
Abdominal Pain HPI - General Stated Complaint: Abd pain Time Seen by Provider: 12/10/21 15:59 Source: RN notes reviewed - History of Present Illness Initial Comments: This is a pleasant 66-year-old diabetic female presents to emergency department complaining of abdominal distention, generalized abdominal pain and pressure. Mostly in the lower abdomen, urinary frequency, patient states she has been treated twice for urinary tract infections, she finished a course of Macrobid about 2 weeks ago then went back last week and has been taking ciprofloxacin. She states that antibiotics do not seem to be doing anything. She denies any hematuria. She is getting some burning urination and burning sensation in the suprapubic area. No known fever or chills. No nausea or vomiting. No changes in bowel movements other than mild constipation. GENERALIZED weakness, No headache, no fever or chills, no changes in vision or hearing, no sore throat or difficulty with speech, no neck pain, no chest pain or shortness of breath, no abdominal pain, no nausea or vomiting, no numbness or tingling, no extremity pain, no skin rashes or lesions. MD Complaint: abdominal pain - Related Data Home Medications Medication Instructions Recorded Confirmed Allopurinol [Zyloprim] 100 mg PO DAILY 12/16/20 10/14/21 Atorvastatin [Lipitor] 40 mg PO HS 08/02/21 10/14/21 Linagliptin [Tradjenta] 5 mg PO DAILY 08/02/21 10/14/21 Ferrous Sulfate [Iron (65 MG 1 tab PO DAILY 10/11/21 10/14/21 Elemental)] Rosuvastatin [Crestor] 1 tab PO HS 10/11/21 10/14/21 Previous Rx's Medication Instructions Recorded Furosemide [Lasix] 60 mg PO BID #20 tab 08/09/21 INSULIN LISPRO (humaLOG) [humaLOG] 1 injection SQ DIRECTED #10 ml 08/09/21 Isosorbide Mononitrate ER [Imdur] 30 mg PO DAILY tablet 08/09/21 Potassium Chloride ER [K-Dur 20] 20 meq PO BID #0 08/09/21 carvediloL [Coreg] 3.125 mg PO BID-W/MEALS tab 08/09/21 hydrALAZINE HCL [Apresoline] 50 mg PO TID tab 08/09/21 Allergies Allergy/AdvReac Type Severity Reaction Status Date / Time No Known Allergies Allergy Verified 12/10/21 16:08 Review of Systems ROS Statement: Those systems with pertinent positive or pertinent negative responses have been documented in the HPI. ROS Other: All systems not noted in ROS Statement are negative. Past Medical History Past Medical History: Cancer (Uterine cancer, finished radiation therapy last year), Diabetes Mellitus, Hypertension, Renal Disease Additional Past Medical History / Comment(s): fall 2 year ago, now walks with cane History of Any Multi-Drug Resistant Organisms: None Reported Past Surgical History: No Surgical Hx Reported Past Anesthesia/Blood Transfusion Reactions: No Reported Reaction Smoking Status: Never smoker - Past Family History Father Family Medical History: Myocardial Infarction (ME) Additional Family Medical History / Comment(s): father of ME at 58 years old Mother Additional Family Medical History / Comment(s): mother of old age at 95 years old General Exam General appearance: alert, in distress (Mild) Head exam: Present: atraumatic, normocephalic, normal inspection Eye exam: Present: normal appearance, PERRL, EOMI. Absent: scleral icterus, conjunctival injection, periorbital swelling ENT exam: Present: normal exam, normal oropharynx, mucous membranes moist, TM's normal bilaterally, normal external ear exam. Absent: mucous membranes dry Neck exam: Present: normal inspection, full ROM. Absent: tenderness, meningismus, lymphadenopathy Respiratory exam: Present: normal lung sounds bilaterally. Absent: respiratory distress, wheezes, rales, rhonchi, stridor, chest wall tenderness, accessory muscle use Cardiovascular Exam: Present: regular rate, normal rhythm, normal heart sounds. Absent: systolic murmur, diastolic murmur, rubs, gallop, clicks GI/Abdominal exam: Present: distended, tenderness (Suprapubic), guarding (Voluntary), normal bowel sounds. Absent: rebound, rigid Rectal exam: Present: normal inspection, normal rectal tone, other (Brown stool). Absent: bloody stool, fecal impaction, hemorrhoids Extremities exam: Present: normal inspection, full ROM, normal capillary refill. Absent: tenderness, pedal edema, joint swelling, calf tenderness Back exam: Present: normal inspection Neurological exam: Present: alert, oriented X3, CN II-XII intact Psychiatric exam: Present: normal affect, normal mood Skin exam: Present: warm, dry, intact, normal color. Absent: rash Course Vital Signs 12/10/21 15:57 Temperature 99.8 F H Pulse Rate 75 Respiratory 18 Rate O2 Sat by Pulse 93 L Oximetry - Reevaluation(s) Reevaluation #1: 12/10/21 17:37 Medical record is reviewed Symptoms are essentially unchanged. Patient did end up having hemoglobin 6.9. Blood sugar is elevated. Urinalysis did show signs of infection. There is no significant retention. Rocephin ordered. Blood cultures ordered. One unit of packed red blood cells ordered. We'll perform rectal examination and order a CT abdomen due to lower abdominal discomfort and distention Patient is informed of results and questions answered Patient in no distress - Consultations Consultation #1: Case discussed in detail with Dr. Lopez from [facility] who accepts admission. Medical Decision Making - Medical Decision Making Patient temperature is 99.8. This certainly could be a low-grade fever. Darius Khan antibiotics. Lactic acid was ordered. Patient has abdominal distention. We'll assess for urinary retention, other etiologies such as urinary tract infection, diverticulitis, inflammatory versus infectious etiology possible. Presentation does not fit the clinical picture of cardiopulmonary disease. Patient presents with symptomatic anemia with hemoglobin 6.9. Refractory urinary tract infection with outpatient treatment failure on ciprofloxacin currently and previously finished Macrobid. Patient stating that she has no history of anemia. Has a history of uterine cancer, finished radiation therapy last year. Denies any hematochezia or melena. Complaining of generalized we akness and lower abdominal tenderness. We will order a noncontrast CT. Inadvertently ordered contrast which was changed to noncontrast after discussion with the set up technician. Patient will require one unit packed red blood cells and admission to the hospital. Rocephin 1 g IV piggyback given. Blood cultures are ordered. The case was discussed in detail with ED attending physician. Presentation, findings, treatment plan discussed in detail. Supervising physicians Dr. Linares - Lab Data Result diagrams: 12/10/21 16:10 12/10/21 16:10 Lab Results 12/10/21 12/10/21 12/10/21 Range/Units 16:10 16:10 16:10 WBC 5.7 (3.8-10.6) k/uL RBC 2.23 L (3.80-5.40) m/uL Hgb 6.9 L* (11.4-16.0) gm/dL Hct 23.7 L (34.0-46.0) % MCV 106.2 H (80.0-100.0) fL MCH 30.8 (25.0-35.0) pg MCHC 29.0 L (31.0-37.0) g/dL RDW 13.7 (11.5-15.5) % Plt Count 271 (150-450) k/uL MPV 7.8 Neutrophils % 87 % Lymphocytes % 6 % Monocytes % 5 % Eosinophils % 1 % Basophils % 1 % Neutrophils # 4.9 (1.3-7.7) k/uL Lymphocytes # 0.3 L (1.0-4.8) k/uL Monocytes # 0.3 (0-1.0) k/uL Eosinophils # 0.1 (0-0.7) k/uL Basophils # 0.1 (0-0.2) k/uL Hypochromasia Marked Macrocytosis Moderate Sodium 133 L (137-145) mmol/L Potassium 5.1 (3.5-5.1) mmol/L Chloride 109 H (98-107) mmol/L Carbon Dioxide 20 L (22-30) mmol/L Anion Gap 4 mmol/L BUN 102 H* (7-17) mg/dL Creatinine 1.60 H (0.52-1.04) mg/dL Est GFR (CKD-EPI)AfAm 39 (>60 ml/min/1.73 sqM) Est GFR (CKD-EPI)NonAf 33 (>60 ml/min/1.73 sqM) Glucose 221 H (74-99) mg/dL POC Glucose (mg/dL) (75-99) mg/dL POC Glu Hand I Tube Bender ID Plasma Lactic Acid Octavio (0.7-2.0) mmol/L Calcium 7.8 L (8.4-10.2) mg/dL Magnesium 2.2 (1.6-2.3) mg/dL Total Bilirubin 0.5 (0.2-1.3) mg/dL AST 24 (14-36) U/L ALT 13 (4-34) U/L Alkaline Phosphatase 173 H (38-126) U/L Troponin I (0.000-0.034) ng/mL Total Protein 5.9 L (6.3-8.2) g/dL Albumin 2.8 L (3.5-5.0) g/dL Lipase 38 (23-300) U/L Urine Color Yellow Urine Appearance Cloudy H (Clear) Urine pH 5.5 (5.0-8.0) Ur Specific [place] 1.010 (1.001-1.035) Urine Protein 2+ H (Negative) Urine Glucose (UA) 1+ H (Negative) Urine Ketones Negative (Negative) Urine Blood Moderate H (Negative) Urine Nitrite Negative (Negative) Urine Bilirubin Negative (Negative) Urine Urobilinogen <2.0 (<2.0) mg/dL Ur Leukocyte Esterase Large H (Negative) Urine RBC 17 H (0-5) /hpf Urine WBC 72 H (0-5) /hpf Ur Squamous Epith Cells 3 (0-4) /hpf Urine Bacteria Rare H (None) /hpf Hyaline Casts 1 (0-2) /lpf Urine Mucus Rare H (None) /hpf Stool Occult Blood (Negative) 12/10/21 12/10/21 12/10/21 Range/Units 16:10 16:10 16:34 WBC (3.8-10.6) k/uL RBC (3.80-5.40) m/uL Hgb (11.4-16.0) gm/dL Hct (34.0-46.0) % MCV (80.0-100.0) fL MCH (25.0-35.0) pg MCHC (31.0-37.0) g/dL RDW (11.5-15.5) % Plt Count (150-450) k/uL MPV Neutrophils % % Lymphocytes % % Monocytes % % Eosinophils % % Basophils % % Neutrophils # (1.3-7.7) k/uL Lymphocytes # (1.0-4.8) k/uL Monocytes # (0-1.0) k/uL Eosinophils # (0-0.7) k/uL Basophils # (0-0.2) k/uL Hypochromasia Macrocytosis Sodium (137-145) mmol/L Potassium (3.5-5.1) mmol/L Chloride (98-107) mmol/L Carbon Dioxide (22-30) mmol/L Anion Gap mmol/L BUN (7-17) mg/dL Creatinine (0.52-1.04) mg/dL Est GFR (CKD-EPI)AfAm (>60 ml/min/1.73 sqM) Est GFR (CKD-EPI)NonAf (>60 ml/min/1.73 sqM) Glucose (74-99) mg/dL POC Glucose (mg/dL) 283 H (75-99) mg/dL POC Glu Hand I Tube Bender ID Willing, Norma Plasma Lactic Acid Octavio 0.6 L (0.7-2.0) mmol/L Calcium (8.4-10.2) mg/dL Magnesium (1.6-2.3) mg/dL Total Bilirubin (0.2-1.3) mg/dL AST (14-36) U/L ALT (4-34) U/L Alkaline Phosphatase (38-126) U/L Troponin I <0.012 (0.000-0.034) ng/mL Total Protein (6.3-8.2) g/dL Albumin (3.5-5.0) g/dL Lipase (23-300) U/L Urine Color Urine Appearance (Clear) Urine pH (5.0-8.0) Ur Specific [place] (1.001-1.035) Urine Protein (Negative) Urine Glucose (UA) (Negative) Urine Ketones (Negative) Urine Blood (Negative) Urine Nitrite (Negative) Urine Bilirubin (Negative) Urine Urobilinogen (<2.0) mg/dL Ur Leukocyte Esterase (Negative) Urine RBC (0-5) /hpf Urine WBC (0-5) /hpf Ur Squamous Epith Cells (0-4) /hpf Urine Bacteria (None) /hpf Hyaline Casts (0-2) /lpf Urine Mucus (None) /hpf Stool Occult Blood (Negative) 12/10/21 Range/Units 18:04 WBC (3.8-10.6) k/uL RBC (3.80-5.40) m/uL Hgb (11.4-16.0) gm/dL Hct (34.0-46.0) % MCV (80.0-100.0) fL MCH (25.0-35.0) pg MCHC (31.0-37.0) g/dL RDW (11.5-15.5) % Plt Count (150-450) k/uL MPV Neutrophils % % Lymphocytes % % Monocytes % % Eosinophils % % Basophils % % Neutrophils # (1.3-7.7) k/uL Lymphocytes # (1.0-4.8) k/uL Monocytes # (0-1.0) k/uL Eosinophils # (0-0.7) k/uL Basophils # (0-0.2) k/uL Hypochromasia Macrocytosis Sodium (137-145) mmol/L Potassium (3.5-5.1) mmol/L Chloride (98-107) mmol/L Carbon Dioxide (22-30) mmol/L Anion Gap mmol/L BUN (7-17) mg/dL Creatinine (0.52-1.04) mg/dL Est GFR (CKD-EPI)AfAm (>60 ml/min/1.73 sqM) Est GFR (CKD-EPI)NonAf (>60 ml/min/1.73 sqM) Glucose (74-99) mg/dL POC Glucose (mg/dL) (75-99) mg/dL POC Glu Hand I Tube Bender ID Plasma Lactic Acid Octavio (0.7-2.0) mmol/L Calcium (8.4-10.2) mg/dL Magnesium (1.6-2.3) mg/dL Total Bilirubin (0.2-1.3) mg/dL AST (14-36) U/L ALT (4-34) U/L Alkaline Phosphatase (38-126) U/L Troponin I (0.000-0.034) ng/mL Total Protein (6.3-8.2) g/dL Albumin (3.5-5.0) g/dL Lipase (23-300) U/L Urine Color Urine Appearance (Clear) Urine pH (5.0-8.0) Ur Specific [place] (1.001-1.035) Urine Protein (Negative) Urine Glucose (UA) (Negative) Urine Ketones (Negative) Urine Blood (Negative) Urine Nitrite (Negative) Urine Bilirubin (Negative) Urine Urobilinogen (<2.0) mg/dL Ur Leukocyte Esterase (Negative) Urine RBC (0-5) /hpf Urine WBC (0-5) /hpf Ur Squamous Epith Cells (0-4) /hpf Urine Bacteria (None) /hpf Hyaline Casts (0-2) /lpf Urine Mucus (None) /hpf Stool Occult Blood Negative (Negative) - EKG Data EKG Comments: EKG done at 16 1250 attending physician reveals a rate of 72. Normal intervals. Normal axis. No evidence of acute ST or T wave pathology. No other acute changes. Disposition Clinical Impression: Symptomatic anemia, Urinary tract infection, Generalized weakness, Chronic anemia Narrative: Refractory urinary tract infection with outpatient treatment failure Disposition: ADMITTED IP TO THIS HOSP Condition: Fair Referrals: Delroy Lawrence DO [Primary Care Provider] - 1-2 days Time of Disposition: 17:55 Decision to Admit Reason: Admit from EC Decision Time: 17:55
[2021-12-10 16:36] LABS: Glucose,Whole Blood 283 mg/dL (75-99)
[2021-12-10 17:01] LABS: Basophils # (A) 0.1 k/uL (0-0.2); Basophils % (A) 1 %; Eosinophils # (A) 0.1 k/uL (0-0.7); Eosinophils % (A) 1 %; HCT 23.7 % (34.0-46.0); Hypochromasia Marked; Lymphocytes # (A) 0.3 k/uL (1.0-4.8); Lymphocytes % (A) 6 %; MCH 30.8 pg (25.0-35.0); MCV 106.2 fL (80.0-100.0); Macrocytosis Moderate; Mean Platelet Volume 7.8; Monocytes # (A) 0.3 k/uL (0-1.0); Monocytes % (A) 5 %; Neutrophils # (A) 4.9 k/uL (1.3-7.7); Neutrophils % (A) 87 %; Platelet Count 271 k/uL (150-450); RBC 2.23 m/uL (3.80-5.40); RDW 13.7 % (11.5-15.5); WBC 5.7 k/uL (3.8-10.6)
[2021-12-10 17:08] LABS: Appearance,Urine Cloudy (Clear); Bacteria,Urine Rare /hpf; Bilirubin,Urine Negative (Negative); Blood,Urine Moderate (Negative); Color,Urine Yellow; Glucose,Urine (UA) 1+ (Negative); Hyaline Casts,Urine 1 /lpf (0-2); Ketones,Urine Negative (Negative); Leukocyte Esterase,Urine Large (Negative); Mucus,Urine Rare /hpf; Nitrite,Urine Negative (Negative); PH, Urine 5.5 (5.0-8.0); Protein,Urine 2+ (Negative); RBC,Urine 17 /hpf (0-5); Squamous Epithelial Cell,Urine 3 /hpf (0-4); Urobilinogen,Urine <2.0 mg/dL (<2.0); WBC,Urine 72 /hpf (0-5)
--- NOTE | 2021-12-10 17:09 | XR ---
EXAMINATION TYPE: XR abdomen acute w cxr DATE OF EXAM: 12/10/2021 5:00 PM INDICATION: Patient age:Female; 66 years old; Reason for study: abd pain. COMPARISON: None. TECHNIQUE: Two radiographic views of the abdomen and an a chest radiograph were obtained. FINDINGS CHEST: Lungs/Pleura: Flattening of the diaphragm with increased lucency within the lung apices. No focal con solidation or pneumothorax. No large pleural effusion. Streaky atelectasis changes seen in the lung b ases. Mediastinum: Unremarkable. Vasculature: Normal. Heart: Heart is enlarged for size. Musculoskeletal: The osseous structures are intact. FINDINGS ABDOMEN: Bowel gas pattern: Fecal material seen predominantly in the right colon. Nonspecific bowel gas patter n. Abnormal calcifications: None. Musculoskeletal: Normal. IMPRESSION: 1. Nonspecific bowel gas pattern with Large stool burden predominantly in the right colon. 2. Cardiomegaly, stable. 3. COPD changes.
[2021-12-10 17:20] LABS: HGB 6.9 gm/dL (11.4-16.0)
[2021-12-10 17:24] LABS: Albumin 2.8 g/dL (3.5-5.0); Calcium 7.8 mg/dL (8.4-10.2); Total Bilirubin 0.5 mg/dL (0.2-1.3); Total Protein 5.9 g/dL (6.3-8.2)
[2021-12-10] MEDS ORDERED: cefTRIAXone IN SWFI 1,000 MG/10 ML SYRINGE IVP STA (17:36)
[2021-12-10 17:43] LABS: Magnesium 2.2 mg/dL (1.6-2.3); Potassium 5.1 mmol/L (3.5-5.1)
[2021-12-10] MEDS ORDERED: ONDANSETRON 4 MG/2 ML VIAL IVP PRN (18:48)
[2021-12-10] MEDS ORDERED: NALOXONE 0.4 MG/ML 1 ML VIAL IV PRN (18:48)
--- NOTE | 2021-12-10 18:56 | CT ---
EXAMINATION TYPE: CT abdomen pelvis wo con DATE OF EXAM: 12/10/2021 COMPARISON: 02/28/2021 HISTORY: Abdominal distention CT DLP: 1553.2 mGycm Automated exposure control for dose reduction was used. Images obtained from the diaphragm to the floor the pelvis with no contrast. There is subsegmental atelectasis left lung base. Heart is enlarged. There is mild pericardial effusi on. There are small left pleural effusion. There is diffuse subcutaneous edema around the abdomen. There is abdominal ascites. Liver is intact. Spleen is intact. There is no pancreatic mass. The stomach is intact. Gallbladder appears normal. The bile ducts are not dilated. There is no adrenal mass. Kidneys have normal size. No hydronephrosis. There are small cortical cysts more pole right kidney. There is no retroperitoneal adenopathy. The bladder distends smoothly. There is no inguinal hernia. No free fluid in the pelvis. Uterus is anteverted. No pelvic mass. There is s mall calcified uterine fibroid. Lumbar vertebrae have normal alignment. No compression fracture. There is multilevel lumbar spondylot ic changes. The bony pelvis is intact. Hip joints are intact. IMPRESSION: Extensive subcutaneous edema increased compared to old exam. Abdominal ascites significantly increase d compared to old exam. Mild pleural effusions and basilar atelectasis increased. Cardiomegaly and pe ricardial effusion unchanged.
--- NOTE | 2021-12-10 19:19 | P.HPIM ---
History of Present Illness H&P Date: 12/10/21 Chief Complaint: Dysuria This is a 66-year-old white female who reported to the emergency room because of dysuria. She has been treated as an outpatient for UTI with Cipro and Macrobid for about 2 weeks but continues to have dysuria. She denies subjective fever. She complains of bladder cramps associated with abdominal distention. She denies nausea or vomiting. She denies chest pain. She has been pale with chronic shortness of breath. She denies dizziness or loss of consciousness. At the time of examination patient does not appear to be in distress but appears to be a little bit lethargic. She denies diarrhea or constipation. No weight change. Review of Systems 10 systems reviewed, pertinent positive and negative findings as in HPI. No chest pain no abdominal. Possible dysuria and abdominal distention. Past Medical History Past Medical History: Cancer (Uterine cancer, finished radiation therapy last year), Diabetes Mellitus, Hypertension, Renal Disease Additional Past Medical History / Comment(s): fall 2 year ago, now walks with cane History of Any Multi-Drug Resistant Organisms: None Reported Past Surgical History: No Surgical Hx Reported Past Anesthesia/Blood Transfusion Reactions: No Reported Reaction Smoking Status: Never smoker - Past Family History Father Family Medical History: Myocardial Infarction (MT) Additional Family Medical History / Comment(s): father of MT at 58 years old Mother Additional Family Medical History / Comment(s): mother of old age at 95 years old Medications and Allergies Home Medications Medication Instructions Recorded Confirmed Type Allopurinol [Zyloprim] 100 mg PO DAILY 12/16/20 10/14/21 History Atorvastatin [Lipitor] 40 mg PO HS 08/02/21 10/14/21 History Linagliptin [Tradjenta] 5 mg PO DAILY 08/02/21 10/14/21 History Furosemide [Lasix] 60 mg PO BID #20 tab 08/09/21 10/14/21 Rx INSULIN LISPRO (humaLOG) [humaLOG] 1 injection SQ DIRECTED #10 ml 08/09/21 10/14/21 Rx Isosorbide Mononitrate ER [Imdur] 30 mg PO DAILY tablet 08/09/21 10/14/21 Rx Potassium Chloride ER [K-Dur 20] 20 meq PO BID #0 08/09/21 10/14/21 Rx carvediloL [Coreg] 3.125 mg PO BID-W/MEALS tab 08/09/21 10/14/21 Rx hydrALAZINE HCL [Apresoline] 50 mg PO TID tab 08/09/21 10/14/21 Rx Ferrous Sulfate [Iron (65 MG 1 tab PO DAILY 10/11/21 10/14/21 History Elemental)] Rosuvastatin [Crestor] 1 tab PO HS 10/11/21 10/14/21 History Allergies Allergy/AdvReac Type Severity Reaction Status Date / Time No Known Allergies Allergy Verified 12/10/21 16:08 Physical Exam Vitals: Vital Signs Temp Pulse Resp Pulse Ox 12/10/21 15:57 99.8 F H 75 18 93 L Intake and Output 12/10/21 12/10/21 12/10/21 06:59 14:59 22:59 Other: Weight 99.79 kg Constitutional: No acute distress, conversant, pleasant Eyes: Anicteric sclerae, moist conjunctiva, no lid-lag, PERRLA ENMT: NC/AT,Oropharynx clear, no erythema, exudates Neck:Supple, FROM, no masses, or JVD, No carotid bruits; No thyromegaly Lungs: Clear to auscultation, Clear to percussion, Normal respiratory effort, no accessory muscle use Cardiovascular: Heart regular in rate and rhythm, No murmurs, gallops, or rubs no peripheral edema Abdominal: Soft Nontender, largely distended, no guarding, no rebound or rigidity, Normoactive bowel sounds No hepatomegaly, No splenomegaly, No palpable mass No abdominal wall hernia noted Skin: Normal temperature, tone, texture, turgor, No induration No subcutaneous nodules, No rash, lesions, No ulcers Extremities:No digital cyanosis No clubbing, bilateral trace edema Psychiatric: Alert and oriented to person, place and time, Appropriate affect Intact judgement Neuro: Muscles Strength 5/5 in all 4 extremities, Sensation to light touch grossly present throughout, Cranial nerves II-XII grossly intact. No focal sensory deficits Results CBC & Chem 7: 12/10/21 16:10 12/10/21 16:10 Labs: Abnormal Lab Results - Last 24 Hours (Table) 12/10/21 12/10/21 12/10/21 Range/Units 16:10 16:10 16:10 RBC 2.23 L (3.80-5.40) m/uL Hgb 6.9 L* (11.4-16.0) gm/dL Hct 23.7 L (34.0-46.0) % MCV 106.2 H (80.0-100.0) fL MCHC 29.0 L (31.0-37.0) g/dL Lymphocytes # 0.3 L (1.0-4.8) k/uL Sodium 133 L (137-145) mmol/L Chloride 109 H (98-107) mmol/L Carbon Dioxide 20 L (22-30) mmol/L BUN 102 H* (7-17) mg/dL Creatinine 1.60 H (0.52-1.04) mg/dL Glucose 221 H (74-99) mg/dL POC Glucose (mg/dL) (75-99) mg/dL Plasma Lactic Acid Octavio (0.7-2.0) mmol/L Calcium 7.8 L (8.4-10.2) mg/dL Alkaline Phosphatase 173 H (38-126) U/L Total Protein 5.9 L (6.3-8.2) g/dL Albumin 2.8 L (3.5-5.0) g/dL Urine Appearance Cloudy H (Clear) Urine Protein 2+ H (Negative) Urine Glucose (UA) 1+ H (Negative) Urine Blood Moderate H (Negative) Ur Leukocyte Esterase Large H (Negative) Urine RBC 17 H (0-5) /hpf Urine WBC 72 H (0-5) /hpf Urine Bacteria Rare H (None) /hpf Urine Mucus Rare H (None) /hpf 12/10/21 12/10/21 Range/Units 16:10 16:34 RBC (3.80-5.40) m/uL Hgb (11.4-16.0) gm/dL Hct (34.0-46.0) % MCV (80.0-100.0) fL MCHC (31.0-37.0) g/dL Lymphocytes # (1.0-4.8) k/uL Sodium (137-145) mmol/L Chloride (98-107) mmol/L Carbon Dioxide (22-30) mmol/L BUN (7-17) mg/dL Creatinine (0.52-1.04) mg/dL Glucose (74-99) mg/dL POC Glucose (mg/dL) 283 H (75-99) mg/dL Plasma Lactic Acid Octavio 0.6 L (0.7-2.0) mmol/L Calcium (8.4-10.2) mg/dL Alkaline Phosphatase (38-126) U/L Total Protein (6.3-8.2) g/dL Albumin (3.5-5.0) g/dL Urine Appearance (Clear) Urine Protein (Negative) Urine Glucose (UA) (Negative) Urine Blood (Negative) Ur Leukocyte Esterase (Negative) Urine RBC (0-5) /hpf Urine WBC (0-5) /hpf Urine Bacteria (None) /hpf Urine Mucus (None) /hpf Assessment and Plan Plan: 1. Acute on chronic UTI failed outpatient therapy with Cipro and Macrobid: Obtain urine cultures, start Rocephin. 2. History of uterine cancer now with anasarca and ascites: Start IV diuretics, she will likely benefit from paracenteses with IR consultation on Sunday. Obtain d-dimer, obtain 2-D echo. 3. Anemia acute on chronic likely associated with uterine cancer hemoglobin 6.9: Use 1 unit, consult GI, monitor H&H. 4. Chronic kidney disease stage III B: Serum creatinine 1.6, patient is not sure what her baseline is but knows that she has chronic kidney disease, continue to avoid nephrotoxins and maintain euvolemic. 5. Obesity BMI 34.5 6. 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 7. Essential hypertension: Continue outpatient medications with Coreg. 8. Gout without exacerbation: Continue allopurinol 9. Hyperlipidemia: Continue statin DVT prophylaxis: SCDs Disposition: Home in 3-4 days pending clinical progression
[2021-12-10] MEDS ORDERED: cefTRIAXone IN SWFI 1,000 MG/10 ML SYRINGE IVP SCH (19:45)
[2021-12-10 20:07] LABS: Glucose,Whole Blood 207 mg/dL (75-99)
[2021-12-10 20:19] LABS: INR 0.9 (<1.2); Partial Thromboplastin Time 26.7 sec (22.0-30.0); Prothrombin Time 10.1 sec (9.0-12.0)
[2021-12-10] MEDS ORDERED: POTASSIUM CHLORIDE ER 20 MEQ TAB.ER PO SCH (21:00)
[2021-12-10] MEDS ORDERED: NON FORMULARY DRUG (Rosuvastatin 20 MG Tablet) PO SCH (21:00)
[2021-12-10] MEDS ORDERED: FUROSEMIDE 20 MG TAB PO SCH (21:00)
--- NOTE | 2021-12-10 22:44 | US ---
EXAMINATION TYPE: US venous doppler duplex LE DATE OF EXAM: 12/10/2021 10:01 PM COMPARISON: NONE CLINICAL HISTORY: leg edema. SIDE PERFORMED: TECHNIQUE: The lower extremity deep venous system is examined utilizing real time linear array sonog alfonzo with graded compression, doppler sonography and color-flow sonography. VESSELS IMAGED: Common Femoral Vein Deep Femoral Vein Greater Saphenous Vein * Femoral Vein Popliteal Vein Small Saphenous Vein * Proximal Calf Veins (* superficial vessels) Patient has severe interstitial edema, severe pitting edema and swollen abdomen. Study technically di fficult and somewhat limited. Unable to visualized vessels in groin. Right Leg: Appears negative for DVT as seen. Left Leg: Appears negative for DVT as seen. IMPRESSION: No sign of deep vein thrombosis in both legs.
[2021-12-10 22:53] LABS: Glucose,Whole Blood 205 mg/dL (75-99)
[2021-12-10] MEDS: carvediloL 6.25 MG TAB PO SCH (22:55)
[2021-12-10] MEDS: FUROSEMIDE 10 MG/ML 10 ML VIAL IV SCH (22:55)
[2021-12-10] MEDS: INSULIN ASPART (NovoLOG) 100 UNIT/ML VIAL SQ SCH (22:55)
[2021-12-10] MEDS: hydrALAZINE HCL 50 MG TAB PO SCH (22:55)
[2021-12-10] MEDS: ACETAMINOPHEN TAB 325 MG TAB PO PRN (22:56)
[2021-12-11] MEDS: MORPHINE SULFATE 4 MG/ML SYRINGE IV PRN ×4 (01:15→22:17)
[2021-12-11 05:58] LABS: Glucose,Whole Blood 191 mg/dL (75-99)
[2021-12-11] MEDS: INSULIN ASPART (NovoLOG) 100 UNIT/ML VIAL SQ SCH ×4 (06:41→20:17)
[2021-12-11] MEDS ORDERED: carvediloL 3.125 MG TAB PO SCH (07:30)
[2021-12-11 08:20] LABS: Basophils # (A) 0.1 k/uL (0-0.2); Basophils % (A) 1 %; Eosinophils # (A) 0.1 k/uL (0-0.7); Eosinophils % (A) 3 %; HCT 25.5 % (34.0-46.0); HGB 7.7 gm/dL (11.4-16.0); Hypochromasia Marked; Lymphocytes # (A) 0.4 k/uL (1.0-4.8); Lymphocytes % (A) 7 %; MCH 31.5 pg (25.0-35.0); MCHC 30.3 g/dL (31.0-37.0); Macrocytosis Slight; Mean Platelet Volume 7.6; Monocytes # (A) 0.4 k/uL (0-1.0); Monocytes % (A) 6 %; Neutrophils # (A) 4.6 k/uL (1.3-7.7); Neutrophils % (A) 82 %; Platelet Count 319 k/uL (150-450); RBC 2.45 m/uL (3.80-5.40); RDW 15.1 % (11.5-15.5); WBC 5.6 k/uL (3.8-10.6)
[2021-12-11 08:35] LABS: Albumin 2.6 g/dL (3.5-5.0); Calcium 7.8 mg/dL (8.4-10.2); Potassium 4.3 mmol/L (3.5-5.1); Total Bilirubin 0.4 mg/dL (0.2-1.3); Total Protein 5.3 g/dL (6.3-8.2)
[2021-12-11] MEDS: FUROSEMIDE 10 MG/ML 10 ML VIAL IV SCH ×2 (09:56→20:56)
[2021-12-11] MEDS: carvediloL 6.25 MG TAB PO SCH ×2 (09:57→20:17)
[2021-12-11] MEDS: allopurinoL 100 MG TAB PO SCH (09:57)
[2021-12-11] MEDS: ISOSORBIDE MONONITRATE ER 30 MG TAB.ER.24H PO SCH (09:57)
[2021-12-11] MEDS: hydrALAZINE HCL 50 MG TAB PO SCH ×2 (09:57→20:17)
[2021-12-11 11:59] LABS: Glucose,Whole Blood 239 mg/dL (75-99)
--- NOTE | 2021-12-11 13:03 | NM ---
EXAMINATION TYPE: NM pul perfusion DATE OF EXAM: 12/11/2021 COMPARISON: Chest radiograph dated 12/11/2021 HISTORY: Shortness of breath Following administration of 5.47 mCi Tc 99m MAA. Images obtained post injection. FINDINGS: There are multiple large perfusion defects each lung that are not matched by corresponding normalitie s on the chest radiograph. IMPRESSION: High probability for pulmonary embolism.
--- NOTE | 2021-12-11 13:04 | XR ---
EXAMINATION TYPE: XR chest 2V DATE OF EXAM: 12/11/2021 COMPARISON: 08/04/2021 HISTORY: Shortness of breath TECHNIQUE: Frontal and lateral views of the chest are obtained. FINDINGS: There is marked cardiomegaly and small bilateral pleural effusions. There is no airspace consolidation. The pulmonary vasculature does not appear congested. No pneumotho rax. The osseous structures are intact. IMPRESSION: Findings most consistent with mild CHF.
--- NOTE | 2021-12-11 16:25 | P.PN ---
Subjective Progress Note Date: 12/11/21 66 years old female who apparently presented with chief complaint of dysuria and generalized anasarca and debility, patient was found out to have urinary tract infection she recently finished outpatient antibiotics for urinary tract infection here she was started on ceftriaxone. She also was noted to have generalized edema with moderate ascites, computed tomography scan also showed pericardial effusion, echocardiogram requested and interventional radiology consulted for therapeutic and diagnostic paracentesis. Generalized anasarca with moderate ascites No previous history of alcohol intake or liver disease, she does have history of uterine cancer CT abdomen and pelvis was done which showed extensive edema abdominal ascites cardiomegaly and pericardial effusion no signs of liver disease on computed tomography scan no abnormal masses noted Previous echocardiogram is from August 2021 showing EF 50-55% moderate tricuspid regurgitation moderate pulmonary hypertension RVSP 53 Echocardiogram pending Patient at home is on oral Lasix. On IV Lasix Interventional radiology consulted for diagnostic and therapeutic paracentesis Possible exacerbation of congestive heart failure, history of valvular heart disease Generalized anasarca in the setting of possible congestive heart failure, history of valvular heart disease and moderate pulmonary hypertension we'll consult cardiology for evaluation urinary tract infection next line continue As mentioned above continue IV Lasix, continue carvedilol hydralazine Echocardiogram pending We'll consult cardiology Abnormal lung perfusion scan Patient remains on room air Perfusion scan shows high probability of pulmonary embolism We'll check lower extremity ultrasound for clot burden estimated Echocardiogram as mentioned above Urinary tract infection Continue ceftriaxone Chronic kidney disease Patient has stage III chronic kidney disease Creatinine at baseline Continue to monitor History of uterine cancer Patient has stage I cancer, apparently was treated at [facility] Current status unclear Patient to follow with [facility] after discharge Diabetes mellitus Hold oral hypoglycemics Continue insulin sliding scale Check hemoglobin A1c Chronic stable medical condition Hypertension Hyperlipidemia Gout DVT prophylaxis: Heparin CODE STATUS: Full code Discharge plan: Back to home pending hospital course Objective - Vital Signs Vital signs: Vital Signs Temp 98.4 F 12/11/21 04:00 Pulse 64 12/11/21 12:00 Resp 16 12/11/21 14:00 BP 148/61 12/11/21 12:00 Pulse Ox 94 L 12/11/21 12:00 FiO2 Intake & Output 12/10/21 12/11/21 12/11/21 18:59 06:59 18:59 Intake Total 320 600 Output Total 1300 Balance -980 600 Weight 99.79 kg 108 kg Intake: IV 10 Invasive Line 1 10 Oral 600 Blood Product 310 Rc As-1 Unit 310 [id number] Output: Urine 1300 Other: Voiding Method Bedside Commode Bedside Commode External Catheter External Catheter General: non toxic, no acute distress, alert oriented to time place and person Head: atraumatic, normocephalic, symmetric Eyes: no lid lesion], anicteric sclera Mouth: no lip lesion, mucus membranes moist Cardiovascular: S1S2 reg rate and rhythm, no murmur, no gallop Lungs: Diminished breath sounds bilaterally Abdominal: soft, distended, ascites positive Ext: +2 bilateral lower extremity edema Neuro: Alert oriented to time place and person, exam grossly nonfocal Psych: Mood and affect appropriate, patient not so certain - Labs CBC & Chem 7: 12/11/21 07:54 12/11/21 07:54 Labs: Abnormal Lab Results - Last 24 Hours (Table) 12/10/21 12/10/21 12/10/21 Range/Units 15:50 16:10 16:10 RBC 2.23 L (3.80-5.40) m/uL Hgb 6.9 L* (11.4-16.0) gm/dL Hct 23.7 L (34.0-46.0) % MCV 106.2 H (80.0-100.0) fL MCHC 29.0 L (31.0-37.0) g/dL Lymphocytes # 0.3 L (1.0-4.8) k/uL D-Dimer (<0.60) mg/L FEU Sodium (137-145) mmol/L Chloride (98-107) mmol/L Carbon Dioxide (22-30) mmol/L BUN (7-17) mg/dL Creatinine (0.52-1.04) mg/dL Glucose (74-99) mg/dL POC Glucose (mg/dL) (75-99) mg/dL Plasma Lactic Acid Octavio (0.7-2.0) mmol/L Calcium (8.4-10.2) mg/dL Alkaline Phosphatase (38-126) U/L Total Protein (6.3-8.2) g/dL Albumin (3.5-5.0) g/dL Urine Appearance Cloudy H (Clear) Urine Protein 2+ H (Negative) Urine Glucose (UA) 1+ H (Negative) Urine Blood Moderate H (Negative) Ur Leukocyte Esterase Large H (Negative) Urine RBC 17 H (0-5) /hpf Urine WBC 72 H (0-5) /hpf Urine Bacteria Rare H (None) /hpf Urine Mucus Rare H (None) /hpf Crossmatch See Detail 12/10/21 12/10/21 12/10/21 Range/Units 16:10 16:10 16:34 RBC (3.80-5.40) m/uL Hgb (11.4-16.0) gm/dL Hct (34.0-46.0) % MCV (80.0-100.0) fL MCHC (31.0-37.0) g/dL Lymphocytes # (1.0-4.8) k/uL D-Dimer (<0.60) mg/L FEU Sodium 133 L (137-145) mmol/L Chloride 109 H (98-107) mmol/L Carbon Dioxide 20 L (22-30) mmol/L BUN 102 H* (7-17) mg/dL Creatinine 1.60 H (0.52-1.04) mg/dL Glucose 221 H (74-99) mg/dL POC Glucose (mg/dL) 283 H (75-99) mg/dL Plasma Lactic Acid Octavio 0.6 L (0.7-2.0) mmol/L Calcium 7.8 L (8.4-10.2) mg/dL Alkaline Phosphatase 173 H (38-126) U/L Total Protein 5.9 L (6.3-8.2) g/dL Albumin 2.8 L (3.5-5.0) g/dL Urine Appearance (Clear) Urine Protein (Negative) Urine Glucose (UA) (Negative) Urine Blood (Negative) Ur Leukocyte Esterase (Negative) Urine RBC (0-5) /hpf Urine WBC (0-5) /hpf Urine Bacteria (None) /hpf Urine Mucus (None) /hpf Crossmatch 12/10/21 12/10/21 12/10/21 Range/Units 17:50 19:57 22:52 RBC (3.80-5.40) m/uL Hgb (11.4-16.0) gm/dL Hct (34.0-46.0) % MCV (80.0-100.0) fL MCHC (31.0-37.0) g/dL Lymphocytes # (1.0-4.8) k/uL D-Dimer 14.59 H (<0.60) mg/L FEU Sodium (137-145) mmol/L Chloride (98-107) mmol/L Carbon Dioxide (22-30) mmol/L BUN (7-17) mg/dL Creatinine (0.52-1.04) mg/dL Glucose (74-99) mg/dL POC Glucose (mg/dL) 207 H 205 H (75-99) mg/dL Plasma Lactic Acid Octavio (0.7-2.0) mmol/L Calcium (8.4-10.2) mg/dL Alkaline Phosphatase (38-126) U/L Total Protein (6.3-8.2) g/dL Albumin (3.5-5.0) g/dL Urine Appearance (Clear) Urine Protein (Negative) Urine Glucose (UA) (Negative) Urine Blood (Negative) Ur Leukocyte Esterase (Negative) Urine RBC (0-5) /hpf Urine WBC (0-5) /hpf Urine Bacteria (None) /hpf Urine Mucus (None) /hpf Crossmatch 12/11/21 12/11/21 12/11/21 Range/Units 05:46 07:54 07:54 RBC 2.45 L (3.80-5.40) m/uL Hgb 7.7 L (11.4-16.0) gm/dL Hct 25.5 L (34.0-46.0) % MCV 104.0 H (80.0-100.0) fL MCHC 30.3 L (31.0-37.0) g/dL Lymphocytes # 0.4 L (1.0-4.8) k/uL D-Dimer (<0.60) mg/L FEU Sodium (137-145) mmol/L Chloride 112 H (98-107) mmol/L Carbon Dioxide 18 L (22-30) mmol/L BUN 92 H (7-17) mg/dL Creatinine 1.48 H (0.52-1.04) mg/dL Glucose 151 H (74-99) mg/dL POC Glucose (mg/dL) 191 H (75-99) mg/dL Plasma Lactic Acid Octavio (0.7-2.0) mmol/L Calcium 7.8 L (8.4-10.2) mg/dL Alkaline Phosphatase 152 H (38-126) U/L Total Protein 5.3 L (6.3-8.2) g/dL Albumin 2.6 L (3.5-5.0) g/dL Urine Appearance (Clear) Urine Protein (Negative) Urine Glucose (UA) (Negative) Urine Blood (Negative) Ur Leukocyte Esterase (Negative) Urine RBC (0-5) /hpf Urine WBC (0-5) /hpf Urine Bacteria (None) /hpf Urine Mucus (None) /hpf Crossmatch 12/11/21 Range/Units 11:50 RBC (3.80-5.40) m/uL Hgb (11.4-16.0) gm/dL Hct (34.0-46.0) % MCV (80.0-100.0) fL MCHC (31.0-37.0) g/dL Lymphocytes # (1.0-4.8) k/uL D-Dimer (<0.60) mg/L FEU Sodium (137-145) mmol/L Chloride (98-107) mmol/L Carbon Dioxide (22-30) mmol/L BUN (7-17) mg/dL Creatinine (0.52-1.04) mg/dL Glucose (74-99) mg/dL POC Glucose (mg/dL) 239 H (75-99) mg/dL Plasma Lactic Acid Octavio (0.7-2.0) mmol/L Calcium (8.4-10.2) mg/dL Alkaline Phosphatase (38-126) U/L Total Protein (6.3-8.2) g/dL Albumin (3.5-5.0) g/dL Urine Appearance (Clear) Urine Protein (Negative) Urine Glucose (UA) (Negative) Urine Blood (Negative) Ur Leukocyte Esterase (Negative) Urine RBC (0-5) /hpf Urine WBC (0-5) /hpf Urine Bacteria (None) /hpf Urine Mucus (None) /hpf Crossmatch Microbiology - Last 24 Hours (Table) 12/10/21 16:10 Urine Culture - Preliminary Urine,Voided
[2021-12-11 16:47] LABS: Glucose,Whole Blood 180 mg/dL (75-99)
[2021-12-11] MEDS: HEPARIN SOD,PORK IN 0.45% NACL 25,000 UNIT in 0.45% NACL 1 250ML.BAG IV SCH (17:40)
[2021-12-11 20:32] LABS: Glucose,Whole Blood 175 mg/dL (75-99)
[2021-12-12] MEDS: MORPHINE SULFATE 4 MG/ML SYRINGE IV PRN ×4 (04:55→21:49)
[2021-12-12 05:59] LABS: Glucose,Whole Blood 181 mg/dL (75-99)
[2021-12-12] MEDS: INSULIN ASPART (NovoLOG) 100 UNIT/ML VIAL SQ SCH ×4 (06:22→20:30)
[2021-12-12 07:39] LABS: Basophils % (A) 1 %; Eosinophils # (A) 0.2 k/uL (0-0.7); Eosinophils % (A) 4 %; Hypochromasia Marked; Lymphocytes # (A) 0.5 k/uL (1.0-4.8); Lymphocytes % (A) 10 %; MCH 32.4 pg (25.0-35.0); MCHC 30.6 g/dL (31.0-37.0); MCV 105.9 fL (80.0-100.0); Macrocytosis Moderate; Mean Platelet Volume 7.7; Monocytes # (A) 0.3 k/uL (0-1.0); Monocytes % (A) 6 %; Neutrophils % (A) 80 %; Platelet Count 315 k/uL (150-450); RBC 2.46 m/uL (3.80-5.40); RDW 14.8 % (11.5-15.5)
[2021-12-12 08:00] LABS: Calcium 7.8 mg/dL (8.4-10.2); Potassium 4.6 mmol/L (3.5-5.1)
[2021-12-12] MEDS: FUROSEMIDE 10 MG/ML 10 ML VIAL IV SCH (09:06)
[2021-12-12] MEDS: FERROUS SULFATE 325 MG TAB PO SCH (09:07)
[2021-12-12] MEDS: allopurinoL 100 MG TAB PO SCH (09:07)
[2021-12-12] MEDS: hydrALAZINE HCL 50 MG TAB PO SCH ×2 (09:07→20:30)
[2021-12-12] MEDS: carvediloL 6.25 MG TAB PO SCH ×2 (09:07→20:30)
[2021-12-12] MEDS: ISOSORBIDE MONONITRATE ER 30 MG TAB.ER.24H PO SCH (09:07)
--- NOTE | 2021-12-12 10:05 | P.CRDCN ---
History of Present Illness Consult date: 12/12/21 History of present illness: HISTORY OF PRESENT ILLNESS: This is a 66-year-old female with a past medical history significant for hypertension, hyperlipidemia, chronic kidney disease, pericardial effusion, severe pulmonary hypertension, and congestive heart failure with preserved ejection fraction. Patient follows in the office with Dr. Li. We have been asked to see the patient in consultation for CHF. Patient examined at the bedside. Patient states she presented to the emergency room because she was having difficulty urinating. She was diagnosed with a urinary tract infection and has been receiving antibiotics. She denies any shortness of breath. She denies chest pain or pressure. She reports chronic lower extremity edema, left worse than right, than is unchanged from her baseline. She reports abdominal bloating. She is receiving IV Lasix 60mg BID. Interventional radiology has been consulted for paracentesis. Patient remains on IV heparin as she underwent a VQ scan revealing high probability for pulmonary embolism. The patient denies any history of DVT or PE. The patient was also found to be anemic on admission with a hemoglobin of 6.9. She received 1 unit packed RBCs. The patient states that she has a history of anemia. She is unsure if she has had endoscopy in the past. She denies any dark stools or bright red blood in her stools. * EKG reveals sinus mechanism with no signs of acute ischemia * Chest xray findings consistent with mild CHF. Marked cardiomegaly and small bilateral pleural effusions. * V/Q scan: High probability of pulmonary embolism * Lower extremity Doppler: Negative for DVT bilaterally * Laboratory data: WBC 5.0. Hemoglobin 8.0. Platelet count 315. Sodium 137. Potassium 4.6. BUN 88. Creatinine 1.59. ProBNP 12,000. * Current home cardiac medications include hydralazine 50 mg twice a day, Imdur 30 mg daily, Lasix 40 mg 3 times a day, carvedilol 6.25 mg twice a day * Most recent echocardiogram obtained in August 2021 revealed ejection fraction 50-55%, mild LVH, right ventricle moderate to severely enlarged, mild MR, moderate TR, moderate pulmonary hypertension with RVSP of 53.40 mmHg, moderate generalized pericardial effusion * Cardiac catheterization history: unknown REVIEW OF SYSTEMS: At the time of my exam: CONSTITUTIONAL: Denies fever or chills. HEENT: Denies blurred vision, vision changes, or eye pain. Denies hemoptysis CARDIOVASCULAR: Denies chest pain. Denies orthopnea. Denies PND. Denies palpitations RESPIRATORY: Denies shortness of breath. GASTROINTESTINAL: Denies abdominal pain. Reports abdominal bloating. Denies nausea or vomiting. HEMATOLOGIC: Denies bleeding disorders. GENITOURINARY: Denies any blood in urine. SKIN: Denies pruitis. Denies rash. PHYSICAL EXAM: VITAL SIGNS: Reviewed. GENERAL: Well-developed in no acute distress. HEENT: Head is normocephalic. Pupils are equal, round. Sclerae anicteric. Mucous membranes of the mouth are moist. Neck supple. No JVD or thyromegaly LUNGS: Respirations even and unlabored. Lungs diminished bilaterally. HEART: Regular rate and rhythm. S1 and S2 heard. Systolic murmur noted. ABDOMEN: Soft. Distended. Nontender. EXTREMITIES: Normal range of motion. No clubbing or cyanosis. Peripheral pulses intact. 2+ bilateral lower extremity edema, left worse than right, Denys wrap noted to left lower extremity. NEUROLOGIC: Awake and alert. Oriented x 3. ASSESSMENT: Urinary tract infection Acute on chronic congestive heart failure with preserved ejection fraction High probability of pulmonary embolism, per VQ scan Hypertension Hyperlipidemia Chronic kidney disease History of pericardial effusion History of severe pulmonary hypertension History of uterine cancer Acute on chronic anemia, s/p 1 unit RBC transfusion PLAN: Obtain 2D echo to assess cardiac structure and function Continue IV heparin. Defer transition of oral anticoagulation to primary medicine. Continue home cardiac medications Continue IV lasix. Decrease dosage to daily. Monitor kidney function. Daily weights. Accurate I&O Interventional radiology consulted for paracentesis Further recommendations pending patient course Nurse practitioner note has been reviewed by physician. Signing provider agrees with the documented findings, assessment, and plan of care. Past Medical History Past Medical History: Cancer, Diabetes Mellitus, Hypertension, Renal Disease Additional Past Medical History / Comment(s): fall 2 year ago, now walks with c ane History of Any Multi-Drug Resistant Organisms: None Reported Past Surgical History: No Surgical Hx Reported Past Anesthesia/Blood Transfusion Reactions: No Reported Reaction Past Psychological History: Depression Smoking Status: Never smoker Past Alcohol Use History: None Reported Past Drug Use History: None Reported - Past Family History Father Family Medical History: Myocardial Infarction (MO) Additional Family Medical History / Comment(s): father of [place] at 58 years old Mother Additional Family Medical History / Comment(s): mother of old age at 95 years old Medications and Allergies Home Medications Medication Instructions Recorded Confirmed Type Allopurinol [Zyloprim] 100 mg PO DAILY 12/16/20 12/10/21 History Linagliptin [Tradjenta] 5 mg PO DAILY 08/02/21 12/10/21 History Isosorbide Mononitrate ER [Imdur] 30 mg PO DAILY tablet 08/09/21 12/10/21 Rx Ferrous Sulfate [Iron (65 MG 325 mg PO Q48H 10/11/21 12/10/21 History Elemental)] Carvedilol [Coreg] 6.25 mg PO BID 12/10/21 12/10/21 History Furosemide [Lasix] 40 mg PO TID 12/10/21 12/10/21 History Insulin Lispro [humaLOG Kwikpen] See Protocol SQ ACHS 12/10/21 12/10/21 History Nitrofurantoin Monohyd/M-Cryst 100 mg PO BID 12/10/21 12/10/21 History [Macrobid] hydrALAZINE HCL [Apresoline] 50 mg PO BID 12/10/21 12/10/21 History sitaGLIPtin [Januvia] 50 mg PO DAILY 12/10/21 12/10/21 History Allergies Allergy/AdvReac Type Severity Reaction Status Date / Time No Known Allergies Allergy Verified 12/10/21 19:18 Physical Exam Vitals: Vital Signs Temp Pulse Resp BP Pulse Ox 12/12/21 03:56 97.8 F 69 15 128/67 92 L 12/12/21 02:00 66 15 12/11/21 23:40 97.9 F 66 15 118/54 92 L 12/11/21 20:00 68 16 12/11/21 19:53 97.6 F 68 16 159/66 93 L 12/11/21 16:00 67 16 155/65 94 L 12/11/21 14:00 16 12/11/21 12:00 64 16 148/61 94 L Intake and Output 12/11/21 12/12/21 12/12/21 22:59 06:59 14:59 Intake Total 10 65.5 Output Total 1000 800 Balance -990 -734.5 Intake: IV 10 0.9 10 Intake, IV Titration 65.5 Amount Heparin Sod,Pork in 0.45% 65.5 NaCl 25,000 unit In 0.45 % NaCl 1 250ml.bag @ 9. 259 UNITS/KG/HR 10 mls/hr IV .Q24H [facility] Rx#: [id number] Output: Urine 1000 800 Straight 500 300 Other: Voiding Method External Catheter External Catheter # Voids 1 Weight 107 kg Results 12/12/21 07:07 12/12/21 07:07 Cardiac Enzymes 12/11/21 12/11/21 Range/Units 07:54 07:54 AST 14 (14-36) U/L Troponin I 0.014 (0.000-0.034) ng/mL Coagulation 12/11/21 Range/Units 23:19 APTT 29.1 (22.0-30.0) sec CBC 12/11/21 12/12/21 Range/Units 07:54 07:07 WBC 5.6 5.0 (3.8-10.6) k/uL RBC 2.45 L 2.46 L (3.80-5.40) m/uL Hgb 7.7 L 8.0 L (11.4-16.0) gm/dL Hct 25.5 L 26.0 L (34.0-46.0) % Plt Count 319 315 (150-450) k/uL Comprehensive Metabolic Panel 12/11/21 12/12/21 Range/Units 07:54 07:07 Sodium 137 137 (137-145) mmol/L Potassium 4.3 4.6 (3.5-5.1) mmol/L Chloride 112 H 112 H (98-107) mmol/L Carbon Dioxide 18 L 19 L (22-30) mmol/L BUN 92 H 88 H (7-17) mg/dL Creatinine 1.48 H 1.59 H (0.52-1.04) mg/dL Glucose 151 H 162 H (74-99) mg/dL Calcium 7.8 L 7.8 L (8.4-10.2) mg/dL AST 14 (14-36) U/L ALT 12 (4-34) U/L Alkaline Phosphatase 152 H (38-126) U/L Total Protein 5.3 L (6.3-8.2) g/dL Albumin 2.6 L (3.5-5.0) g/dL Current Medications Generic Name Dose Route Start Last Admin Trade Name Freq PRN Reason Stop Dose Admin Acetaminophen 650 mg 12/10/21 18:48 12/10/21 22:56 Acetaminophen Tab 325 Mg Tab PO 650 mg Q6HR PRN Administration Mild Pain or Fever > 100.5 Allopurinol 100 mg 12/11/21 09:00 12/11/21 09:57 Allopurinol 100 Mg Tab PO 100 mg DAILY LOVE Administration Carvedilol 6.25 mg 12/10/21 21:00 12/11/21 20:17 Carvedilol 6.25 Mg Tab PO 6.25 mg BID LOVE Administration Ferrous Sulfate 325 mg 12/12/21 09:00 Ferrous Sulfate 325 Mg Tab PO Q48H LOVE Furosemide 60 mg 12/10/21 21:00 12/11/21 20:56 Furosemide 10 Mg/Ml 10 Ml Vial IV 60 mg BID LOVE Administration Hydralazine HCl 50 mg 12/10/21 21:00 12/11/21 20:17 Hydralazine Hcl 50 Mg Tab PO 50 mg BID LOVE Administration Ceftriaxone Sodium 1 gm/ 50 mls @ 100 mls/hr 12/11/21 09:00 12/11/21 09:57 Sodium Chloride IVPB 100 mls/hr DAILY LOVE Administration Heparin Sodium/Sodium Chloride 250 mls @ 10 mls/hr 12/11/21 17:30 12/12/21 00:13 25,000 unit/ Sodium Chloride IV 12.259 units/kg/hr .Q24H LOVE 13.24 mls/hr Titration Protocol 9.259 UNITS/KG/HR Insulin Aspart 0 unit 12/10/21 21:00 12/12/21 06:22 Insulin Aspart (Novolog) 100 Unit/Ml Vial SQ 2 unit ACHS LOVE Administration Protocol Isosorbide Mononitrate 30 mg 12/11/21 09:00 12/11/21 09:57 Isosorbide Mononitrate Er 30 Mg Tab.Er.24h PO 30 mg DAILY LOVE Administration Morphine Sulfate 4 mg 12/10/21 18:48 12/12/21 04:55 Morphine Sulfate 4 Mg/Ml Syringe IV 4 mg Q4HR PRN Administration Severe Pain Naloxone HCl 0.2 mg 12/10/21 18:48 Naloxone 0.4 Mg/Ml 1 Ml Vial IV Q2M PRN Opioid Reversal Ondansetron HCl 4 mg 12/10/21 18:48 Ondansetron 4 Mg/2 Ml Vial IVP Q8HR PRN Nausea And Vomiting Intake and Output 12/11/21 12/12/21 12/12/21 22:59 06:59 14:59 Intake Total 10 65.5 Output Total 1000 800 Balance -990 -734.5 Intake: IV 10 0.9 10 Intake, IV Titration 65.5 Amount Heparin Sod,Pork in 0.45% 65.5 NaCl 25,000 unit In 0.45 % NaCl 1 250ml.bag @ 9. 259 UNITS/KG/HR 10 mls/hr IV .Q24H [facility] Rx#: [id number] Output: Urine 1000 800 Straight 500 300 Other: Voiding Method External Catheter External Catheter # Voids 1 Weight 107 kg 12/12/21 07:07 12/12/21 07:07
--- NOTE | 2021-12-12 11:09 | P.PN ---
Subjective Patient was examined at bedside today continues complain of some abdominal discomfort however denies any chest pain, shortness of breath or palpitations. Patient also states that she has not a bowel movement in the last 24-48 hours in complaining of some abdominal distention as well. Objective - Vital Signs Vital signs: Vital Signs Temp 97.8 F 12/12/21 03:56 Pulse 70 12/12/21 08:00 Resp 16 12/12/21 08:00 BP 154/66 12/12/21 08:00 Pulse Ox 92 L 12/12/21 03:56 FiO2 Intake & Output 12/11/21 12/12/21 12/12/21 18:59 06:59 18:59 Intake Total 600 75.5 114.085 Output Total 1800 Balance 600 -1724.5 114.085 Weight 107 kg Intake: IV 10 0.9 10 Intake, IV Titration 65.5 114.085 Amount Heparin Sod,Pork in 0.45% 65.5 114.085 NaCl 25,000 unit In 0.45 % NaCl 1 250ml.bag @ 9. 259 UNITS/KG/HR 10 mls/hr IV .Q24H [facility] Rx#: [id number] Oral 600 Output: Urine 1800 Straight 800 Other: Voiding Method Bedside Commode External Catheter External Catheter # Voids 1 # Bowel Movements 1 - Exam General: non toxic, no acute distress, alert oriented to time place and person Head: atraumatic, normocephalic, symmetric Eyes: no lid lesion], anicteric sclera Mouth: no lip lesion, mucus membranes moist Cardiovascular: S1S2 reg rate and rhythm, no murmur, no gallop Lungs: Diminished breath sounds bilaterally Abdominal: soft, distended, ascites positive Ext: +2 bilateral lower extremity edema Neuro: Alert oriented to time place and person, exam grossly nonfocal Psych: Mood and affect appropriate, patient not so certain - Labs CBC & Chem 7: 12/12/21 07:07 12/12/21 07:07 Labs: Abnormal Lab Results - Last 24 Hours (Table) 12/11/21 12/11/21 12/11/21 Range/Units 11:50 16:32 20:12 RBC (3.80-5.40) m/uL Hgb (11.4-16.0) gm/dL Hct (34.0-46.0) % MCV (80.0-100.0) fL MCHC (31.0-37.0) g/dL Lymphocytes # (1.0-4.8) k/uL APTT (22.0-30.0) sec Chloride (98-107) mmol/L Carbon Dioxide (22-30) mmol/L BUN (7-17) mg/dL Creatinine (0.52-1.04) mg/dL Glucose (74-99) mg/dL POC Glucose (mg/dL) 239 H 180 H 175 H (75-99) mg/dL Calcium (8.4-10.2) mg/dL 12/12/21 12/12/21 12/12/21 Range/Units 05:36 07:07 07:07 RBC 2.46 L (3.80-5.40) m/uL Hgb 8.0 L (11.4-16.0) gm/dL Hct 26.0 L (34.0-46.0) % MCV 105.9 H (80.0-100.0) fL MCHC 30.6 L (31.0-37.0) g/dL Lymphocytes # 0.5 L (1.0-4.8) k/uL APTT (22.0-30.0) sec Chloride 112 H (98-107) mmol/L Carbon Dioxide 19 L (22-30) mmol/L BUN 88 H (7-17) mg/dL Creatinine 1.59 H (0.52-1.04) mg/dL Glucose 162 H (74-99) mg/dL POC Glucose (mg/dL) 181 H (75-99) mg/dL Calcium 7.8 L (8.4-10.2) mg/dL 12/12/21 Range/Units 07:07 RBC (3.80-5.40) m/uL Hgb (11.4-16.0) gm/dL Hct (34.0-46.0) % MCV (80.0-100.0) fL MCHC (31.0-37.0) g/dL Lymphocytes # (1.0-4.8) k/uL APTT 19.4 L (22.0-30.0) sec Chloride (98-107) mmol/L Carbon Dioxide (22-30) mmol/L BUN (7-17) mg/dL Creatinine (0.52-1.04) mg/dL Glucose (74-99) mg/dL POC Glucose (mg/dL) (75-99) mg/dL Calcium (8.4-10.2) mg/dL Microbiology - Last 24 Hours (Table) 12/10/21 16:10 Urine Culture - Final Urine,Voided 12/10/21 19:10 Blood Culture - Preliminary Blood No Growth after 24 hours 12/10/21 19:20 Blood Culture - Preliminary Blood No Growth after 24 hours Assessment and Plan Assessment: Generalized anasarca with moderate ascites No previous history of alcohol intake or liver disease, she does have history of uterine cancer CT abdomen and pelvis was done which showed extensive edema abdominal ascites cardiomegaly and pericardial effusion no signs of liver disease on computed tomography scan no abnormal masses noted Previous echocardiogram is from August 2021 showing EF 50-55% moderate tricuspid regurgitation moderate pulmonary hypertension RVSP 53 Echocardiogram pending On IV Lasix Interventional radiology consulted for diagnostic and therapeutic paracentesis Possible exacerbation of congestive heart failure, history of valvular heart disease Generalized anasarca in the setting of possible congestive heart failure, history of valvular heart disease and moderate pulmonary hypertension we'll consult cardiology for evaluation urinary tract infection next line continue As mentioned above continue IV Lasix, continue carvedilol hydralazine Echocardiogram pending cardiology on board Abnormal lung perfusion scan Patient remains on room air Perfusion scan shows high probability of pulmonary embolism We'll check lower extremity ultrasound for clot burden estimated Echocardiogram as mentioned above Urinary tract infection Continue ceftriaxone Chronic kidney disease Patient has stage III chronic kidney disease Creatinine at baseline Continue to monitor History of uterine cancer Patient has stage I cancer, apparently was treated at [facility] Current status unclear Patient to follow with [facility] after discharge Diabetes mellitus Hold oral hypoglycemics Continue insulin sliding scale Check hemoglobin A1c Chronic stable medical condition Hypertension Hyperlipidemia Gout Constipation-continue with bowel regimen DVT prophylaxis: Heparin CODE STATUS: Full code Discharge plan: Back to home pending hospital course
[2021-12-12 11:49] LABS: Glucose,Whole Blood 161 mg/dL (75-99)
[2021-12-12] MEDS: DOCUSATE 100 MG CAP PO PRN (12:32)
--- NOTE | 2021-12-12 14:32 | P.CNPUL ---
History of Present Illness Consult date: 12/12/21 Requesting physician: Herrera Lopez Reason for consult: pulmonary embolism Chief complaint: Dysuria and symptoms of UTI History of present illness: This is a 66-year-old female with history of multiple medical problems including hypertension, diabetes, and recently diagnosed uterine cancer. Patient underwent radiation treatment for her uterine cancer, and did not require any surgical intervention. Patient presented to the ER on 12/10/21, mostly with 2 weeks history of difficulty urinating and burning sensation on urination. Patient was recently diagnosed with urinary tract infection, and she was treated on outpatient basis with Cipro and Macrobid. Patient was also complaining of abdominal cramps, abdominal distention, bloating sensation in the abdomen, and significant swelling and fluid retention in her lower extremities. CT of the abdomen showed extensive subcutaneous edema and abdominal ascites with mild the pleural effusions and basilar atelectasis. It was also evidence of cardiomegaly and pericardial effusion. VQ scan ordered by the admitting physician showed high probability for pulmonary embolism. Could not have a CT angiogram of the chest because of her renal functioning, creatinine on this admission was 1.60. At any rate considering her VQ scan abnormality this consult was initiated. Patient has very minimal shortness of breath, no chest pain, no cough, no wheezing, no fever, no chills, no hemoptysis. Venous Doppler of the legs was negative for DVT. Patient is now on heparin, she was seen by many consultants since admission including cardiology scheduled to have 2-D echocardiogram, advised to continue Lasix, and recommended interventional radiology for paracentesis. Patient is still on heparin at this point, and considering that she is being considered for paracentesis, I would hold on transitioning the patient to oral anticoagulation therapy. Review of Systems CONSTITUTIONAL: Generalized weakness, no fever, no chills. No weight loss, patient has mostly fluid retention. HEENT: Negative. CARDIOVASCULAR: Just fluid retention, no chest pain, no syncope, no palpitations. RESPIRATORY: Minimal shortness of breath, no other pulmonary symptoms. GASTROINTESTINAL: As noted in HPI, mostly abdominal bloating, abdominal cramps, and fluid retention in the abdomen with increased abdominal girth. HEMATOLOGIC: Negative. Although patient was noted to be anemic on this presentation. GENITOURINARY: As noted in HPI SKIN: Negative Neurologic: Negative Psychiatric: Negative Past Medical History Past Medical History: Cancer, Diabetes Mellitus, Hypertension, Renal Disease Additional Past Medical History / Comment(s): fall 2 year ago, now walks with cane History of Any Multi-Drug Resistant Organisms: None Reported Past Surgical History: No Surgical Hx Reported Past Anesthesia/Blood Transfusion Reactions: No Reported Reaction Past Psychological History: Depression Smoking Status: Never smoker Past Alcohol Use History: None Reported Past Drug Use History: None Reported - Past Family History Father Family Medical History: Myocardial Infarction ([place]) Additional Family Medical History / Comment(s): father of [place] at 58 years old Mother Additional Family Medical History / Comment(s): mother of old age at 95 years old Medications and Allergies Home Medications Medication Instructions Recorded Confirmed Type Allopurinol [Zyloprim] 100 mg PO DAILY 12/16/20 12/10/21 History Linagliptin [Tradjenta] 5 mg PO DAILY 08/02/21 12/10/21 History Isosorbide Mononitrate ER [Imdur] 30 mg PO DAILY tablet 08/09/21 12/10/21 Rx Ferrous Sulfate [Iron (65 MG 325 mg PO Q48H 10/11/21 12/10/21 History Elemental)] Carvedilol [Coreg] 6.25 mg PO BID 12/10/21 12/10/21 History Furosemide [Lasix] 40 mg PO TID 12/10/21 12/10/21 History Insulin Lispro [humaLOG Kwikpen] See Protocol SQ ACHS 12/10/21 12/10/21 History Nitrofurantoin Monohyd/M-Cryst 100 mg PO BID 12/10/21 12/10/21 History [Macrobid] hydrALAZINE HCL [Apresoline] 50 mg PO BID 12/10/21 12/10/21 History sitaGLIPtin [Januvia] 50 mg PO DAILY 12/10/21 12/10/21 History Allergies Allergy/AdvReac Type Severity Reaction Status Date / Time No Known Allergies Allergy Verified 12/10/21 19:18 Physical Exam Vitals: Vital Signs Temp Pulse Resp BP Pulse Ox 12/12/21 12:00 72 16 157/70 92 L 12/12/21 08:00 70 16 154/66 12/12/21 03:56 97.8 F 69 15 128/67 92 L 12/12/21 02:00 66 15 12/11/21 23:40 97.9 F 66 15 118/54 92 L 12/11/21 20:00 68 16 12/11/21 19:53 97.6 F 68 16 159/66 93 L 12/11/21 16:00 67 16 155/65 94 L Intake and Output 12/11/21 12/12/21 12/12/21 22:59 06:59 14:59 Intake Total 10 65.5 114.085 Output Total 1000 800 400 Balance -990 -734.5 -285.915 Intake: IV 10 0.9 10 Intake, IV Titration 65.5 114.085 Amount Heparin Sod,Pork in 0.45% 65.5 114.085 NaCl 25,000 unit In 0.45 % NaCl 1 250ml.bag @ 9. 259 UNITS/KG/HR 10 mls/hr IV .Q24H [facility] Rx#: [id number] Output: Urine 1000 800 400 Straight 500 300 Other: Voiding Method External Catheter External Catheter External Catheter # Voids 1 Weight 107 kg Physical Exam: Revealed a 66-year-old female pleasant in no distress, on room air. Head: Atraumatic, normocephalic. HEENT:[Neck is supple.] [No neck masses.] [No thyromegaly.] [No JVD.] Chest: [Clear throughout, no crackles, no rhonchi, no wheezes.] Cardiac Exam: [Normal S1 and S2, no S3 gallop, no murmur.] Abdomen: Obese, positive ascites, no rebound, no guarding. Positive bowel sounds. Extremities: [No clubbing, 2+ bipedal edema, no cyanosis.] Neurological Exam: [No focal neurologic deficit.] Alert oriented 3. Psychiatric: Normal mood affect and normal mental status examination. Skin: No rashes. Results - Laboratory Findings CBC and BMP: 12/12/21 07:07 12/12/21 07:07 PT/INR, D-dimer PT 10.1 sec (9.0-12.0) 12/10/21 17:50 INR 0.9 (<1.2) 12/10/21 17:50 D-Dimer 14.59 mg/L FEU (<0.60) H 12/10/21 17:50 Abnormal lab findings: Abnormal Labs 12/10/21 12/10/21 12/10/21 15:50 16:10 16:10 RBC 2.23 L Hgb 6.9 L* Hct 23.7 L MCV 106.2 H MCHC 29.0 L Lymphocytes # 0.3 L APTT D-Dimer Sodium Chloride Carbon Dioxide BUN Creatinine Glucose POC Glucose (mg/dL) Plasma Lactic Acid Octavio Calcium Alkaline Phosphatase Total Protein Albumin Urine Appearance Cloudy H Urine Protein 2+ H Urine Glucose (UA) 1+ H Urine Blood Moderate H Ur Leukocyte Esterase Large H Urine RBC 17 H Urine WBC 72 H Urine Bacteria Rare H Urine Mucus Rare H Crossmatch See Detail 12/10/21 12/10/21 12/10/21 16:10 16:10 16:34 RBC Hgb Hct MCV MCHC Lymphocytes # APTT D-Dimer Sodium 133 L Chloride 109 H Carbon Dioxide 20 L BUN 102 H* Creatinine 1.60 H Glucose 221 H POC Glucose (mg/dL) 283 H Plasma Lactic Acid Octavio 0.6 L Calcium 7.8 L Alkaline Phosphatase 173 H Total Protein 5.9 L Albumin 2.8 L Urine Appearance Urine Protein Urine Glucose (UA) Urine Blood Ur Leukocyte Esterase Urine RBC Urine WBC Urine Bacteria Urine Mucus Crossmatch 12/10/21 12/10/21 12/10/21 17:50 19:57 22:52 RBC Hgb Hct MCV MCHC Lymphocytes # APTT D-Dimer 14.59 H Sodium Chloride Carbon Dioxide BUN Creatinine Glucose POC Glucose (mg/dL) 207 H 205 H Plasma Lactic Acid Octavio Calcium Alkaline Phosphatase Total Protein Albumin Urine Appearance Urine Protein Urine Glucose (UA) Urine Blood Ur Leukocyte Esterase Urine RBC Urine WBC Urine Bacteria Urine Mucus Crossmatch 12/11/21 12/11/21 12/11/21 05:46 07:54 07:54 RBC 2.45 L Hgb 7.7 L Hct 25.5 L MCV 104.0 H MCHC 30.3 L Lymphocytes # 0.4 L APTT D-Dimer Sodium Chloride 112 H Carbon Dioxide 18 L BUN 92 H Creatinine 1.48 H Glucose 151 H POC Glucose (mg/dL) 191 H Plasma Lactic Acid Octavio Calcium 7.8 L Alkaline Phosphatase 152 H Total Protein 5.3 L Albumin 2.6 L Urine Appearance Urine Protein Urine Glucose (UA) Urine Blood Ur Leukocyte Esterase Urine RBC Urine WBC Urine Bacteria Urine Mucus Crossmatch 12/11/21 12/11/21 12/11/21 11:50 16:32 20:12 RBC Hgb Hct MCV MCHC Lymphocytes # APTT D-Dimer Sodium Chloride Carbon Dioxide BUN Creatinine Glucose POC Glucose (mg/dL) 239 H 180 H 175 H Plasma Lactic Acid Octavio Calcium Alkaline Phosphatase Total Protein Albumin Urine Appearance Urine Protein Urine Glucose (UA) Urine Blood Ur Leukocyte Esterase Urine RBC Urine WBC Urine Bacteria Urine Mucus Crossmatch 12/12/21 12/12/21 12/12/21 05:36 07:07 07:07 RBC 2.46 L Hgb 8.0 L Hct 26.0 L MCV 105.9 H MCHC 30.6 L Lymphocytes # 0.5 L APTT D-Dimer Sodium Chloride 112 H Carbon Dioxide 19 L BUN 88 H Creatinine 1.59 H Glucose 162 H POC Glucose (mg/dL) 181 H Plasma Lactic Acid Octavio Calcium 7.8 L Alkaline Phosphatase Total Protein Albumin Urine Appearance Urine Protein Urine Glucose (UA) Urine Blood Ur Leukocyte Esterase Urine RBC Urine WBC Urine Bacteria Urine Mucus Crossmatch 12/12/21 12/12/21 07:07 11:48 RBC Hgb Hct MCV MCHC Lymphocytes # APTT 19.4 L D-Dimer Sodium Chloride Carbon Dioxide BUN Creatinine Glucose POC Glucose (mg/dL) 161 H Plasma Lactic Acid Octavio Calcium Alkaline Phosphatase Total Protein Albumin Urine Appearance Urine Protein Urine Glucose (UA) Urine Blood Ur Leukocyte Esterase Urine RBC Urine WBC Urine Bacteria Urine Mucus Crossmatch - Diagnostic Findings Additional studies: VQ scan, as noted in HPI, hypermobility for pulmonary embolism Assessment and Plan Assessment: Impression: High probability pulmonary embolism. VQ scan, this is considered basically diagnostic, although clinically the patient does not have significant symptoms of pulmonary embolism. Nonetheless this is considered a positive study. Acute urinary tract infection Ascites, patient had recent diagnosis of uterine cancer, suspect malignant ascites although the possibility of ascites of congestive heart failure/right- sided heart failure is to be considered in the differential. Chronic kidney disease Severe pulmonary hypertension Chronic cor pulmonale History of uterine cancer status post radiation Acute on chronic anemia, patient received 1 unit of packed RBCs since admission. Benign essential hypertension Type 2 diabetes Recommendation: Agree with heparin and eventually the patient needs to be transitioned to oral anticoagulations therapy Agree with plans for paracentesis, /diagnostic/therapeutic Agree with the blood transfusion for anemia Continue antibiotics for UTI and adjust accordingly based on the final cultures Continue diuretics Resume home meds We'll continue to follow. Suggest holding heparin few hours before paracentesis. Time with Patient: Greater than 30
[2021-12-12 16:13] LABS: Glucose,Whole Blood 187 mg/dL (75-99)
[2021-12-12] MEDS: HEPARIN SOD,PORK IN 0.45% NACL 25,000 UNIT in 0.45% NACL 1 250ML.BAG IV SCH (16:33)
[2021-12-12] MEDS ORDERED: HEPARIN SODIUM 1,000 UN/ML (10ML VL) IV PRN (17:27)
[2021-12-12 20:15] LABS: Glucose,Whole Blood 151 mg/dL (75-99)
[2021-12-13] MEDS: HEPARIN SOD,PORK IN 0.45% NACL 25,000 UNIT in 0.45% NACL 1 250ML.BAG IV SCH ×2 (04:38→18:39)
[2021-12-13] MEDS: INSULIN ASPART (NovoLOG) 100 UNIT/ML VIAL SQ SCH ×4 (06:06→20:27)
[2021-12-13 06:07] LABS: Glucose,Whole Blood 150 mg/dL (75-99)
[2021-12-13] MEDS: hydrALAZINE HCL 50 MG TAB PO SCH ×2 (09:35→20:27)
[2021-12-13] MEDS: DOCUSATE 100 MG CAP PO PRN (09:35)
[2021-12-13] MEDS: FUROSEMIDE 10 MG/ML 10 ML VIAL IV SCH (09:35)
[2021-12-13] MEDS: allopurinoL 100 MG TAB PO SCH (09:35)
[2021-12-13] MEDS: carvediloL 6.25 MG TAB PO SCH ×2 (09:35→20:27)
[2021-12-13] MEDS: ISOSORBIDE MONONITRATE ER 30 MG TAB.ER.24H PO SCH (09:35)
[2021-12-13] MEDS: MORPHINE SULFATE 4 MG/ML SYRINGE IV PRN ×2 (09:35→22:40)
[2021-12-13 11:51] LABS: Glucose,Whole Blood 182 mg/dL (75-99)
--- NOTE | 2021-12-13 12:56 | US ---
EXAMINATION TYPE: US abdomen limited DATE OF EXAM: 12/13/2021 COMPARISON: NONE CLINICAL HISTORY: 66-year-old female assess for fluid pocket please. TECHNIQUE: Multiple sonographic images of the 4 abdominal quadrants were obtained. Findings: Moderate ascites is visualized on today's scan. IMPRESSION: Moderate abdominal ascites.
--- NOTE | 2021-12-13 12:58 | P.PN ---
Subjective Progress Note Date: 12/13/21 HISTORY OF PRESENT ILLNESS: This is a 66-year-old female with a past medical history significant for hypertension, hyperlipidemia, chronic kidney disease, pericardial effusion, severe pulmonary hypertension, and congestive heart failure with preserved ejection fraction. Patient follows in the office with Dr. Li. We have been asked to see the patient in consultation for CHF. Patient examined at the bedside. Patient states she presented to the emergency room because she was having difficulty urinating. She was diagnosed with a urinary tract infection and has been receiving antibiotics. She denies any shortness of breath. She denies chest pain or pressure. She reports chronic lower extremity edema, left worse than right, than is unchanged from her baseline. She reports abdominal bloating. She is receiving IV Lasix 60mg BID. Interventional radiology has been consulted for paracentesis. Patient remains on IV heparin as she underwent a VQ scan revealing high probability for pulmonary embolism. The patient denies any history of DVT or PE. The patient was also found to be anemic on admission with a hemoglobin of 6.9. She received 1 unit packed RBCs. The patient states that she has a history of anemia. She is unsure if she has had endoscopy in the past. She denies any dark stools or bright red blood in her stools. * EKG reveals sinus mechanism with no signs of acute ischemia * Chest xray findings consistent with mild CHF. Marked cardiomegaly and small bilateral pleural effusions. * V/Q scan: High probability of pulmonary embolism * Lower extremity Doppler: Negative for DVT bilaterally * Laboratory data: WBC 5.0. Hemoglobin 8.0. Platelet count 315. Sodium 137. Potassium 4.6. BUN 88. Creatinine 1.59. ProBNP 12,000. * Current home cardiac medications include hydralazine 50 mg twice a day, Imdur 30 mg daily, Lasix 40 mg 3 times a day, carvedilol 6.25 mg twice a day * Most recent echocardiogram obtained in August 2021 revealed ejection fraction 50-55%, mild LVH, right ventricle moderate to severely enlarged, mild MR, moderate TR, moderate pulmonary hypertension with RVSP of 53.40 mmHg, moderate generalized pericardial effusion * Cardiac catheterization history: unknown 12/13/2021 Patient examined this morning at the bedside. She denies chest pain or pressure. Denies SOB. She continues to repeat abdominal bloating. She remains on IV lasix. PHYSICAL EXAM: VITAL SIGNS: Reviewed. GENERAL: Well-developed in no acute distress. HEENT: Head is normocephalic. Pupils are equal, round. Sclerae anicteric. Mucous membranes of the mouth are moist. Neck supple. No JVD or thyromegaly LUNGS: Respirations even and unlabored. Lungs diminished bilaterally. HEART: Regular rate and rhythm. S1 and S2 heard. Systolic murmur noted. ABDOMEN: Soft. Distended. Nontender. EXTREMITIES: Normal range of motion. No clubbing or cyanosis. Peripheral pulses intact. 2+ bilateral lower extremity edema, left worse than right NEUROLOGIC: Awake and alert. Oriented x 3. ASSESSMENT: Urinary tract infection Acute on chronic congestive heart failure with preserved ejection fraction High probability of pulmonary embolism, per VQ scan Hypertension Hyperlipidemia Chronic kidney disease History of pericardial effusion History of severe pulmonary hypertension History of uterine cancer Acute on chronic anemia, s/p 1 unit RBC transfusion PLAN: 2D echo ordered. Await results. Continue IV heparin. Defer transition of oral anticoagulation to primary medicine. Continue home cardiac medications Continue IV lasix Monitor kidney function. Daily weights. Accurate I&O Further recommendations pending patient course Nurse practitioner note has been reviewed by physician. Signing provider agrees with the documented findings, assessment, and plan of care. Objective - Vital Signs Vital signs: Vital Signs Temp 98.4 F 12/13/21 08:00 Pulse 67 12/13/21 08:00 Resp 16 12/13/21 08:00 BP 149/49 12/13/21 08:00 Pulse Ox 94 L 12/13/21 08:00 FiO2 Intake & Output 12/12/21 12/13/21 12/13/21 18:59 06:59 18:59 Intake Total 202.079 454.605 Output Total 800 950 125 Balance -597.921 -495.395 -125 Weight 106.1 kg Intake: Intake, IV Titration 202.079 214.605 Amount Heparin Sod,Pork in 0.45% 202.079 214.605 NaCl 25,000 unit In 0.45 % NaCl 1 250ml.bag @ 9. 259 UNITS/KG/HR 10 mls/hr IV .Q24H [facility] Rx#: [id number] Oral 240 Output: Urine 800 950 125 Uretheral ([place]) 400 950 Other: Voiding Method External Catheter Indwelling Catheter - Labs CBC & Chem 7: 12/12/21 07:07 12/12/21 07:07 Labs: Abnormal Lab Results - Last 24 Hours (Table) 12/12/21 12/12/21 12/12/21 Range/Units 15:46 16:12 20:13 APTT 33.1 H (22.0-30.0) sec POC Glucose (mg/dL) 187 H 151 H (75-99) mg/dL 12/12/21 12/13/21 12/13/21 Range/Units 23:27 06:04 07:12 APTT 56.4 H 57.1 H (22.0-30.0) sec POC Glucose (mg/dL) 150 H (75-99) mg/dL 12/13/21 Range/Units 11:50 APTT (22.0-30.0) sec POC Glucose (mg/dL) 182 H (75-99) mg/dL Microbiology - Last 24 Hours (Table) 12/10/21 19:10 Blood Culture - Preliminary Blood No Growth after 48 hours 12/10/21 19:20 Blood Culture - Preliminary Blood No Growth after 48 hours
[2021-12-13] MEDS ORDERED: bisacodyL 5 MG TABLET.DR PO PRN (13:28)
--- NOTE | 2021-12-13 14:23 | P.PN ---
Subjective Progress Note Date: 12/13/21 Principal diagnosis: Acute pulmonary embolism This is a 66-year-old female with history of multiple medical problems including hypertension, diabetes, and recently diagnosed uterine cancer. Patient underwent radiation treatment for her uterine cancer, and did not require any mathis rgical intervention. Patient presented to the ER on 12/10/21, mostly with 2 weeks history of difficulty urinating and burning sensation on urination. Patient was recently diagnosed with urinary tract infection, and she was treated on outpatient basis with Cipro and Macrobid. Patient was also complaining of abdominal cramps, abdominal distention, bloating sensation in the abdomen, and significant swelling and fluid retention in her lower extremities. CT of the abdomen showed extensive subcutaneous edema and abdominal ascites with mild the pleural effusions and basilar atelectasis. It was also evidence of cardiomegaly and pericardial effusion. VQ scan ordered by the admitting physician showed high probability for pulmonary embolism. Could not have a CT angiogram of the chest because of her renal functioning, creatinine on this admission was 1.60. At any rate considering her VQ scan abnormality this consult was initiated. Patient has very minimal shortness of breath, no chest pain, no cough, no wheezing, no fever, no chills, no hemoptysis. Venous Doppler of the legs was negative for DVT. Patient is now on heparin, she was seen by many consultants since admission including cardiology scheduled to have 2-D echocardiogram, advised to continue Lasix, and recommended interventional radiology for paracentesis. Patient is still on heparin at this point, and considering that she is being considered for paracentesis, I would hold on transitioning the patient to oral anticoagulation therapy. Reevaluated today on 12/13/2021, patient was seen yesterday on consultation for pulmonary embolism, she remains on heparin, ultrasound of the abdomen today showed moderate ascites, patient may or may not undergo paracentesis, and that will be decided upon by the radiologist. I am strongly recommending paracentesis most for diagnostic purposes. Patient does have history of uterine cancer, and she seems to be developing significant increase in abdominal girth, and she seems to have significant fluid retention. Pulmonary-dawkins in the meantime patient is on heparin, and she could be transitioned to oral treatment especially if the decision is made not to do paracentesis on this patient. PTT today is therapeutic. Patient had a relatively normal electrolytes, kidney functioning is about the same with a BUN of 88 creatinine 1.59. Objective - Vital Signs Vital signs: Vital Signs Temp 97.6 F 12/13/21 12:00 Pulse 67 12/13/21 12:00 Resp 16 12/13/21 12:00 BP 175/74 12/13/21 12:00 Pulse Ox 95 12/13/21 12:00 FiO2 Intake & Output 12/12/21 12/13/21 12/13/21 18:59 06:59 18:59 Intake Total 202.079 454.605 Output Total 800 950 125 Balance -597.921 -495.395 -125 Weight 106.1 kg Intake: Intake, IV Titration 202.079 214.605 Amount Heparin Sod,Pork in 0.45% 202.079 214.605 NaCl 25,000 unit In 0.45 % NaCl 1 250ml.bag @ 9. 259 UNITS/KG/HR 10 mls/hr IV .Q24H [facility] Rx#: [id number] Oral 240 Output: Urine 800 950 125 Uretheral ([place]) 400 950 Other: Voiding Method External Catheter Indwelling Catheter - Exam Physical Exam: Revealed a 66-year-old female pleasant in no distress, on room air. Head: Atraumatic, normocephalic. HEENT:[Neck is supple.] [No neck masses.] [No thyromegaly.] [No JVD.] Chest: [Clear throughout, no crackles, no rhonchi, no wheezes.] Cardiac Exam: [Normal S1 and S2, no S3 gallop, no murmur.] Abdomen: Obese, positive ascites, no rebound, no guarding. Positive bowel sounds. Extremities: [No clubbing, 2+ bipedal edema, no cyanosis.] Neurological Exam: [No focal neurologic deficit.] Alert oriented 3. Psychiatric: Normal mood affect and normal mental status examination. Skin: No rashes. - Labs CBC & Chem 7: 12/12/21 07:07 12/12/21 07:07 Labs: Abnormal Lab Results - Last 24 Hours (Table) 12/12/21 12/12/21 12/12/21 Range/Units 15:46 16:12 20:13 APTT 33.1 H (22.0-30.0) sec POC Glucose (mg/dL) 187 H 151 H (75-99) mg/dL 12/12/21 12/13/21 12/13/21 Range/Units 23:27 06:04 07:12 APTT 56.4 H 57.1 H (22.0-30.0) sec POC Glucose (mg/dL) 150 H (75-99) mg/dL 12/13/21 Range/Units 11:50 APTT (22.0-30.0) sec POC Glucose (mg/dL) 182 H (75-99) mg/dL Microbiology - Last 24 Hours (Table) 12/10/21 19:10 Blood Culture - Preliminary Blood No Growth after 48 hours 12/10/21 19:20 Blood Culture - Preliminary Blood No Growth after 48 hours Assessment and Plan Assessment: Impression: High probability pulmonary embolism. VQ scan, this is considered basically diagnostic, although clinically the patient does not have significant symptoms of pulmonary embolism. Nonetheless this is considered a positive study. Acute urinary tract infection Ascites, patient had recent diagnosis of uterine cancer, suspect malignant ascites although the possibility of ascites of congestive heart failure/right- sided heart failure is to be considered in the differential. Chronic kidney disease Severe pulmonary hypertension Chronic cor pulmonale History of uterine cancer status post radiation Acute on chronic anemia, patient received 1 unit of packed RBCs since admission. Benign essential hypertension Type 2 diabetes Recommendation: Agree with heparin and eventually the patient needs to be transitioned to oral anticoagulations therapy Agree with plans for paracentesis, /diagnostic/therapeutic Continue diuretics Resume home meds Paracentesis decision to be made by interventional radiology based on ultrasound of the abdomen and pelvis today. If not to be done, patient could be transitioned to oral anti-coagulation therapy, lifetime Time with Patient: Less than 30
--- NOTE | 2021-12-13 16:14 | P.PN ---
Subjective Patient was examined at bedside continues complaining of severe abdominal distention. Patient states that this never happened in the past where her abdomen became this distended. Contribution to some pain and discomfort. Patient is scheduled for diagnostic/therapeutic paracentesis tomorrow to be determined by radiology. Objective - Vital Signs Vital signs: Vital Signs Temp 97.6 F 12/13/21 12:00 Pulse 67 12/13/21 12:00 Resp 16 12/13/21 12:00 BP 175/74 12/13/21 12:00 Pulse Ox 95 12/13/21 12:00 FiO2 Intake & Output 12/12/21 12/13/21 12/13/21 18:59 06:59 18:59 Intake Total 202.079 454.605 Output Total 800 950 125 Balance -597.921 -495.395 -125 Weight 106.1 kg Intake: Intake, IV Titration 202.079 214.605 Amount Heparin Sod,Pork in 0.45% 202.079 214.605 NaCl 25,000 unit In 0.45 % NaCl 1 250ml.bag @ 9. 259 UNITS/KG/HR 10 mls/hr IV .Q24H [facility] Rx#: [id number] Oral 240 Output: Urine 800 950 125 Uretheral ([place]) 400 950 Other: Voiding Method External Catheter Indwelling Catheter - Exam General: non toxic, no acute distress, alert oriented to time place and person Head: atraumatic, normocephalic, symmetric Eyes: no lid lesion], anicteric sclera Mouth: no lip lesion, mucus membranes moist Cardiovascular: S1S2 reg rate and rhythm, no murmur, no gallop Lungs: Diminished breath sounds bilaterally Abdominal: soft, distended, ascites positive Ext: +2 bilateral lower extremity edema Neuro: Alert oriented to time place and person, exam grossly nonfocal Psych: Mood and affect appropriate, patient not so certain - Labs CBC & Chem 7: 12/12/21 07:07 12/12/21 07:07 Labs: Abnormal Lab Results - Last 24 Hours (Table) 12/12/21 12/12/21 12/12/21 Range/Units 15:46 16:12 20:13 APTT 33.1 H (22.0-30.0) sec POC Glucose (mg/dL) 187 H 151 H (75-99) mg/dL 12/12/21 12/13/21 12/13/21 Range/Units 23:27 06:04 07:12 APTT 56.4 H 57.1 H (22.0-30.0) sec POC Glucose (mg/dL) 150 H (75-99) mg/dL 12/13/21 Range/Units 11:50 APTT (22.0-30.0) sec POC Glucose (mg/dL) 182 H (75-99) mg/dL Microbiology - Last 24 Hours (Table) 12/10/21 19:10 Blood Culture - Preliminary Blood No Growth after 48 hours 12/10/21 19:20 Blood Culture - Preliminary Blood No Growth after 48 hours Assessment and Plan Assessment: Generalized anasarca with moderate ascites No previous history of alcohol intake or liver disease, she does have history of uterine cancer CT abdomen and pelvis was done which showed extensive edema abdominal ascites cardiomegaly and pericardial effusion no signs of liver disease on computed tomography scan no abnormal masses noted Previous echocardiogram is from August 2021 showing EF 50-55% moderate tricuspid regurgitation moderate pulmonary hypertension RVSP 53 Echocardiogram pending On IV Lasix Interventional radiology consulted for diagnostic and therapeutic paracentesis Possible exacerbation of congestive heart failure, history of valvular heart disease Generalized anasarca in the setting of possible congestive heart failure, history of valvular heart disease and moderate pulmonary hypertension we'll consult cardiology for evaluation urinary tract infection next line continue As mentioned above continue IV Lasix, continue carvedilol hydralazine Echocardiogram pending cardiology on board Abnormal lung perfusion scan Patient remains on room air Perfusion scan shows high probability of pulmonary embolism Negative lower extremity ultrasound for clot burden estimated Echocardiogram as mentioned above Urinary tract infection Continue ceftriaxone Chronic kidney disease Patient has stage III chronic kidney disease Creatinine at baseline Continue to monitor History of uterine cancer Patient has stage I cancer, apparently was treated at [facility] Current status unclear Patient to follow with [facility] after discharge Diabetes mellitus Hold oral hypoglycemics Continue insulin sliding scale Check hemoglobin A1c Chronic stable medical condition Hypertension Hyperlipidemia Gout Constipation-continue with bowel regimen DVT prophylaxis: Heparin CODE STATUS: Full code Discharge plan: Back to home pending hospital course
[2021-12-13 16:20] LABS: Glucose,Whole Blood 185 mg/dL (75-99)
--- NOTE | 2021-12-13 17:49 | CA ---
Transthoracic Echo Report Name: Sharron Guillen Age: 66 Gender: F : 1955 Exam Date: 12/12/2021 11:20 Exam Location: [facility] Ht (in): 67 Wt (lb): 235 Ordering Physician: Herrera Lopez MD Attending/Referring Phys: Industrial Property Appraiser Pooja Issa RDCS Procedure CPT: Indications: hypervolemia Cardiac Hx: PE, Htn, Dm. Technical Quality: Good Contrast 1: N/A Total Dose (mL): Contrast 2: Total Dose (mL): MEASUREMENTS (Male / Female) Normal Values 2D ECHO LV Diastolic Diameter PLAX 5.1 cm 4.2 - 5.9 / 3.9 - 5.3 cm LV Systolic Diameter PLAX 4.2 cm IVS Diastolic Thickness 1.2 cm 0.6 - 1.0 / 0.6 - 0.9 cm LVPW Diastolic Thickness 2.6 cm 0.6 - 1.0 / 0.6 - 0.9 cm LV Relative Wall Thickness 0.7 RV Internal Dim ED PLAX 3.2 cm LA Volume 134.8 cm??? 18 - 58 / 22 - 52 cm??? M-MODE Aortic Root Diameter MM 3.1 cm LA Systolic Diameter MM 5.2 cm LA Ao Ratio MM 1.7 MV E Point Septal Separation 0.3 cm AV Cusp Separation MM 2.1 cm DOPPLER MV Area PHT 3.7 cm??? Mitral E Point Velocity 109.2 cm/s Mitral A Point Velocity 85.7 cm/s Mitral E to A Ratio 1.3 MV Deceleration Time 205.3 ms MV E' Velocity 5.4 cm/s Mitral E to MV E' Ratio 20.3 TR Peak Velocity 346.8 cm/s TR Peak Gradient 48.1 mmHg Right Ventricular Systolic Press 52.4 mmHg FINDINGS Left Ventricle Mild ventricular wall thickness. Left ventricular cavity size normal. Left ventricular ejection fraction is estimated at 50-55 %. Right Ventricle Normal right ventricular size and function. Right Atrium Normal right atrial size. Left Atrium Severely increased left atrial volume. Mildly increased left atrial area. Mitral Valve Structurally normal mitral valve. Mild mitral regurgitation. Aortic Valve Trileaflet aortic valve. No aortic valve stenosis or regurgitation. Tricuspid Valve Structurally normal tricuspid valve. Mild tricuspid regurgitation. Pulmonic Valve Structurally normal pulmonic valve. Pericardium Mild-Moderate Pericardial Effusion Aorta Normal size aortic root and proximal ascending aorta. CONCLUSIONS Normal LV size, preserved systolic function. Mild mitral and tricuspid insufficiency. Mild to moderate pericardial effusion mostly posterior location0 Previewed by: Dr. Girma Todd MD (Electronically Signed) Final Date: 13 December 2021 17:49
[2021-12-13 19:18] LABS: Glucose,Whole Blood 229 mg/dL (75-99)
[2021-12-14 06:11] LABS: Glucose,Whole Blood 138 mg/dL (75-99)
[2021-12-14] MEDS: INSULIN ASPART (NovoLOG) 100 UNIT/ML VIAL SQ SCH ×4 (06:15→20:11)
[2021-12-14 09:35] LABS: Albumin 2.3 g/dL (3.5-5.0); Calcium 7.8 mg/dL (8.4-10.2); Potassium 4.4 mmol/L (3.5-5.1); Total Bilirubin 0.1 mg/dL (0.2-1.3); Total Protein 4.9 g/dL (6.3-8.2)
[2021-12-14 10:10] LABS: Basophils # (A) 0.1 k/uL (0-0.2); Basophils % (A) 1 %; Eosinophils # (A) 0.2 k/uL (0-0.7); Eosinophils % (A) 3 %; HCT 26.2 % (34.0-46.0); HGB 7.6 gm/dL (11.4-16.0); Hypochromasia Marked; Lymphocytes # (A) 0.4 k/uL (1.0-4.8); Lymphocytes % (A) 9 %; MCH 30.6 pg (25.0-35.0); MCHC 28.9 g/dL (31.0-37.0); Macrocytosis Moderate; Mean Platelet Volume 8.2; Monocytes # (A) 0.3 k/uL (0-1.0); Monocytes % (A) 6 %; Neutrophils # (A) 4.1 k/uL (1.3-7.7); Neutrophils % (A) 81 %; Platelet Count 333 k/uL (150-450); RBC 2.47 m/uL (3.80-5.40); RDW 14.5 % (11.5-15.5); WBC 5.1 k/uL (3.8-10.6)
--- NOTE | 2021-12-14 10:44 | P.CONS ---
History of Present Illness - Reason for Consult Consult date: 12/14/21 Ascites Requesting physician: Juan Valdez - Chief Complaint Urinary tract infection - History of Present Illness This is a pleasant 66-year-old female with a past medical history of uterine cancer, type 2 diabetes mellitus, chronic anemia, hypertension, chronic renal disease who presented to the emergency department 4 days ago with complaints of abdominal distention generalized abdominal discomfort which she states she felt was related to her urinary tract infection. She was recently diagnosed with a urinary tract infection and was currently taking ciprofloxacin. States that she did not feel any improvement in her symptoms. On admission she was noted to have an elevated d-dimer and to be anemic, elevated d-dimer and underwent a CT of abdomen and pelvis without contrast that showed extensive subcutaneous edema increased compared to old exam. Abdominal ascites significantly increased compared to old exam with mild pleural effusions and basilar atelectasis increased. Cardiomegaly and pericardial effusion unchanged. She then underwent bilateral lower extremity venous duplex which was negative for DVT, pulmonary perfusion study for the elevated d-dimer that showed high probability for pulmonary embolism. She then underwent a abdominal ultrasound showing moderate abdominal ascites and is scheduled to undergo paracentesis today. Patient is staying she still has some abdominal distention. She denies any previous history of liver disease. No previous history of alcohol abuse. Denies any previous history of ascites or paracentesis in the past. No history of hepatitis. She is currently denying any shortness of breath or chest pain, no fevers or chills. Having a bowel movement this morning. States she came in because she thought she was having symptoms related to urinary tract infection. She was started on a heparin drip for her suspected pulmonary embolism. Current plans C5 hemoglobin 7.6 hematocrit 26 platelet count 333,000 sodium 137 potassium 4.4 BUN 80 creatinine 1.59 total bilirubin 0.1 AST 13 ALT 7 alkaline phosphatase 135 Review of Systems REVIEW OF SYSTEMS: CARDIOPULMONARY: No chest pain or shortness of breath. Gastrointestinal: Abdominal distention, reports beginning 2-3 weeks ago. Lower abdominal discomfort, recent UTI. No nausea or vomiting. No hematemesis, coffee-ground emesis. No rectal bleeding, or melena. GENITOURINARY: No dysuria or hematuria. Lower abdominal discomfort, recent UTI MUSCULOSKELETAL: Reports normal range of motion., Joint pain. SKIN: No rashes. No jaundice. ENDOCRINE: No chills, fevers. No excessive weight gain or loss. No polydipsia or polyuria. PSYCHIATRIC: Unremarkable. NEUROLOGY: No change in mental status. Denies dizziness, headache. ENT: Vision unremarkable. CONSTITUTIONAL: No recent weight loss. No fever, chills, night sweats. Past Medical History Past Medical History: Cancer, Diabetes Mellitus, Hypertension, Renal Disease Additional Past Medical History / Comment(s): fall 2 year ago, now walks with cane History of Any Multi-Drug Resistant Organisms: None Reported Past Surgical History: No Surgical Hx Reported Past Anesthesia/Blood Transfusion Reactions: No Reported Reaction Past Psychological History: Depression Smoking Status: Never smoker Past Alcohol Use History: None Reported Past Drug Use History: None Reported - Past Family History Father Family Medical History: Myocardial Infarction (SC) Additional Family Medical History / Comment(s): father of SC at 58 years old Mother Additional Family Medical History / Comment(s): mother of old age at 95 years old Medications and Allergies Home Medications Medication Instructions Recorded Confirmed Type allopurinoL [Zyloprim] 100 mg PO DAILY 12/16/20 12/10/21 History Linagliptin [Tradjenta] 5 mg PO DAILY 08/02/21 12/10/21 History Isosorbide Mononitrate ER [Imdur] 30 mg PO DAILY tablet 08/09/21 12/10/21 Rx Ferrous Sulfate [Iron (65 MG 325 mg PO Q48H 10/11/21 12/10/21 History Elemental)] Carvedilol [Coreg] 6.25 mg PO BID 12/10/21 12/10/21 History Furosemide [Lasix] 40 mg PO TID 12/10/21 12/10/21 History Insulin Lispro [humaLOG Kwikpen] See Protocol SQ ACHS 12/10/21 12/10/21 History Nitrofurantoin Monohyd/M-Cryst 100 mg PO BID 12/10/21 12/10/21 History [Macrobid] hydrALAZINE HCL [Apresoline] 50 mg PO BID 12/10/21 12/10/21 History sitaGLIPtin [Januvia] 50 mg PO DAILY 12/10/21 12/10/21 History Allergies Allergy/AdvReac Type Severity Reaction Status Date / Time No Known Allergies Allergy Verified 12/10/21 19:18 Physical Exam Vitals: Vital Signs Temp Pulse Pulse Resp BP Pulse Ox 12/14/21 03:52 98.4 F 64 16 150/62 94 L 12/13/21 23:45 98.0 F 60 16 117/61 94 L 12/13/21 20:00 98.2 F 62 18 138/42 94 L 12/13/21 16:00 98.2 F 67 69 14 117/54 93 L 12/13/21 12:00 97.6 F 67 16 175/74 95 Intake and Output 12/13/21 12/14/21 12/14/21 22:59 06:59 14:59 Intake Total 370 Output Total 1725 225 Balance -1355 -225 Intake: Intake, IV Titration 250 Amount Heparin Sod,Pork in 0.45% 250 NaCl 25,000 unit In 0.45 % NaCl 1 250ml.bag @ 9. 259 UNITS/KG/HR 10 mls/hr IV .Q24H [facility] Rx#: [id number] Oral 120 Output: Urine 1725 225 Other: Voiding Method Indwelling Catheter Indwelling Catheter Weight 105.8 kg General appearance: The patient is alert, oriented, appears in no acute distress. HET: Head is normocephalic and atraumatic. Conjunctiva pink. Sclera anicteric. Neck: Supple without lymphadenopathy. Trachea midline. Heart: S1 S2. Regular rate and rhythm. Lungs: Clear to auscultation. Abdomen: Soft, nontender, mild ascites. No guarding or rigidity. Skin: No rashes. No jaundice. Extremities: Normal skin color and turgor. Mild lower extremity edema. Neurological: No focal deficits. Alert and oriented x3. Results CBC & Chem 7: 12/14/21 08:00 12/14/21 08:00 Labs: Abnormal Lab Results - Last 24 Hours (Table) 12/13/21 12/13/21 12/13/21 Range/Units 11:50 16:18 19:17 POC Glucose (mg/dL) 182 H 185 H 229 H (75-99) mg/dL 12/14/21 Range/Units 06:10 POC Glucose (mg/dL) 138 H (75-99) mg/dL Microbiology - Last 24 Hours (Table) 12/10/21 19:10 Blood Culture - Preliminary Blood No Growth after 72 hours 12/10/21 19:20 Blood Culture - Preliminary Blood No Growth after 72 hours Comments: CT of abdomen and pelvis without contrast that showed extensive subcutaneous edema increased compared to old exam. Abdominal ascites significantly increased compared to old exam with mild pleural effusions and basilar atelectasis increased. Cardiomegaly and pericardial effusion unchanged. Bilateral lower extremity venous duplex which was negative for DVT, Pulmonary perfusion study for the elevated d-dimer that showed high probability for pulmonary embolism. Abdominal ultrasound showing moderate abdominal ascites and is scheduled to undergo paracentesis today. Assessment and Plan (1) Ascites Narrative/Plan: 66-year-old female with past medical history of uterine cancer status post radiation therapy approximately 1 year ago, type 2 diabetes mellitus, anemia of chronic disease, hypertension, chronic renal disease and hyperlipidemia. On admission she was noted to have elevated d-dimer, she was anemic. She received started on IV heparin drip for pulmonary embolism found on VQ scan. She had a CT of the abdomen that showed abdominal ascites, she had a follow-up abdominal ultrasound showing moderate ascites. She has no previous history of reported liver disease, no history of alcoholism, and no history of hepatitis that she is aware of. Started noticing some distention and weight gain over the last 2-3 weeks duration. She is scheduled today for paracentesis. Unknown etiology at this time. We will order fluid studies. Current Visit: Yes Status: Acute Code(s): R18.8 - OTHER ASCITES SNOMED Code(s): 790372951 (2) Chronic anemia Current Visit: Yes Status: Acute Code(s): D64.9 - ANEMIA, UNSPECIFIED SNOMED Code(s): 217205833 Plan: 1. Continue symptomatic and supportive care 2. Continue Lasix 3. Paracentesis scheduled, fluid studies ordered including cytology 4. Repeat CMP 5. Avoid hepatotoxic medications 6. Hepatitis panel ordered Thank you for this consultation, we will continue to follow Dr. Darion Johnson I agree with the dictator's note, documented as a scribe by Rosa Gunn.
[2021-12-14] MEDS: hydrALAZINE HCL 50 MG TAB PO SCH ×2 (10:47→20:11)
[2021-12-14] MEDS: carvediloL 6.25 MG TAB PO SCH ×2 (10:47→20:11)
[2021-12-14] MEDS: allopurinoL 100 MG TAB PO SCH (10:48)
[2021-12-14] MEDS: ISOSORBIDE MONONITRATE ER 30 MG TAB.ER.24H PO SCH (10:48)
[2021-12-14] MEDS: FUROSEMIDE 10 MG/ML 10 ML VIAL IV SCH (10:48)
[2021-12-14] MEDS: FERROUS SULFATE 325 MG TAB PO SCH (10:48)
[2021-12-14] MEDS: APIXABAN 5 MG TAB PO SCH ×2 (10:50→20:11)
[2021-12-14 11:52] LABS: Glucose,Whole Blood 161 mg/dL (75-99)
--- NOTE | 2021-12-14 12:50 | P.PN ---
Subjective Progress Note Date: 12/14/21 Principal diagnosis: Acute pulmonary embolism This is a 66-year-old female with history of multiple medical problems including hypertension, diabetes, and recently diagnosed uterine cancer. Patient underwent radiation treatment for her uterine cancer, and did not require any mathis rgical intervention. Patient presented to the ER on 12/10/21, mostly with 2 weeks history of difficulty urinating and burning sensation on urination. Patient was recently diagnosed with urinary tract infection, and she was treated on outpatient basis with Cipro and Macrobid. Patient was also complaining of abdominal cramps, abdominal distention, bloating sensation in the abdomen, and significant swelling and fluid retention in her lower extremities. CT of the abdomen showed extensive subcutaneous edema and abdominal ascites with mild the pleural effusions and basilar atelectasis. It was also evidence of cardiomegaly and pericardial effusion. VQ scan ordered by the admitting physician showed high probability for pulmonary embolism. Could not have a CT angiogram of the chest because of her renal functioning, creatinine on this admission was 1.60. At any rate considering her VQ scan abnormality this consult was initiated. Patient has very minimal shortness of breath, no chest pain, no cough, no wheezing, no fever, no chills, no hemoptysis. Venous Doppler of the legs was negative for DVT. Patient is now on heparin, she was seen by many consultants since admission including cardiology scheduled to have 2-D echocardiogram, advised to continue Lasix, and recommended interventional radiology for paracentesis. Patient is still on heparin at this point, and considering that she is being considered for paracentesis, I would hold on transitioning the patient to oral anticoagulation therapy. Reevaluated today on 12/13/2021, patient was seen yesterday on consultation for pulmonary embolism, she remains on heparin, ultrasound of the abdomen today showed moderate ascites, patient may or may not undergo paracentesis, and that will be decided upon by the radiologist. I am strongly recommending paracentesis most for diagnostic purposes. Patient does have history of uterine cancer, and she seems to be developing significant increase in abdominal girth, and she seems to have significant fluid retention. Pulmonary-dawkins in the meantime patient is on heparin, and she could be transitioned to oral treatment especially if the decision is made not to do paracentesis on this patient. PTT today is therapeutic. Patient had a relatively normal electrolytes, kidney functioning is about the same with a BUN of 88 creatinine 1.59. Reevaluated today on 12/14/2021, patient remains on the third floor, she underwent uneventful paracentesis today by interventional radiology, fluid was sent for different diagnostic studies. Which are pending. In the meantime the patient feels comfortable, less abdominal distention, and she was on heparin until early this morning discontinued for the paracentesis. And today I'm recommending that she goes on eliquis. CBC is relatively unremarkable except for hemoglobin of 7.6. A left lites are normal BUN is 80 creatinine 1.59, basically about the same since admission Objective - Vital Signs Vital signs: Vital Signs Temp 98.4 F 12/14/21 03:52 Pulse 70 12/14/21 10:16 Resp 16 12/14/21 10:16 BP 155/87 12/14/21 10:16 Pulse Ox 94 L 12/14/21 10:16 FiO2 Intake & Output 12/13/21 12/14/21 12/14/21 18:59 06:59 18:59 Intake Total 370 Output Total 1625 450 Balance -1255 -450 Weight 105.8 kg Intake: Intake, IV Titration 250 Amount Heparin Sod,Pork in 0.45% 250 NaCl 25,000 unit In 0.45 % NaCl 1 250ml.bag @ 9. 259 UNITS/KG/HR 10 mls/hr IV .Q24H [facility] Rx#: [id number] Oral 120 Output: Urine 1625 450 Other: Voiding Method Indwelling Catheter Indwelling Catheter # Bowel Movements 2 - Exam Physical Exam: Revealed a 66-year-old female pleasant in no distress, on room air. Head: Atraumatic, normocephalic. HEENT:[Neck is supple.] [No neck masses.] [No thyromegaly.] [No JVD.] Chest: [Clear throughout, no crackles, no rhonchi, no wheezes.] Cardiac Exam: [Normal S1 and S2, no S3 gallop, no murmur.] Abdomen: Obese, positive ascites, no rebound, no guarding. Positive bowel sounds. Extremities: [No clubbing, 2+ bipedal edema, no cyanosis.] Neurological Exam: [No focal neurologic deficit.] Alert oriented 3. Psychiatric: Normal mood affect and normal mental status examination. Skin: No rashes. - Labs CBC & Chem 7: 12/14/21 08:00 12/14/21 08:00 Labs: Abnormal Lab Results - Last 24 Hours (Table) 12/13/21 12/13/21 12/14/21 Range/Units 16:18 19:17 06:10 RBC (3.80-5.40) m/uL Hgb (11.4-16.0) gm/dL Hct (34.0-46.0) % MCV (80.0-100.0) fL MCHC (31.0-37.0) g/dL Lymphocytes # (1.0-4.8) k/uL Chloride (98-107) mmol/L Carbon Dioxide (22-30) mmol/L BUN (7-17) mg/dL Creatinine (0.52-1.04) mg/dL Glucose (74-99) mg/dL POC Glucose (mg/dL) 185 H 229 H 138 H (75-99) mg/dL Calcium (8.4-10.2) mg/dL Total Bilirubin (0.2-1.3) mg/dL AST (14-36) U/L Alkaline Phosphatase (38-126) U/L Total Protein (6.3-8.2) g/dL Albumin (3.5-5.0) g/dL 12/14/21 12/14/21 12/14/21 Range/Units 08:00 08:00 11:50 RBC 2.47 L (3.80-5.40) m/uL Hgb 7.6 L (11.4-16.0) gm/dL Hct 26.2 L (34.0-46.0) % MCV 106.0 H (80.0-100.0) fL MCHC 28.9 L (31.0-37.0) g/dL Lymphocytes # 0.4 L (1.0-4.8) k/uL Chloride 113 H (98-107) mmol/L Carbon Dioxide 19 L (22-30) mmol/L BUN 80 H (7-17) mg/dL Creatinine 1.59 H (0.52-1.04) mg/dL Glucose 114 H (74-99) mg/dL POC Glucose (mg/dL) 161 H (75-99) mg/dL Calcium 7.8 L (8.4-10.2) mg/dL Total Bilirubin 0.1 L (0.2-1.3) mg/dL AST 13 L (14-36) U/L Alkaline Phosphatase 135 H (38-126) U/L Total Protein 4.9 L (6.3-8.2) g/dL Albumin 2.3 L (3.5-5.0) g/dL Microbiology - Last 24 Hours (Table) 12/10/21 19:10 Blood Culture - Preliminary Blood No Growth after 72 hours 12/10/21 19:20 Blood Culture - Preliminary Blood No Growth after 72 hours Assessment and Plan Assessment: Impression: High probability pulmonary embolism. VQ scan, this is considered basically diagnostic, although clinically the patient does not have significant symptoms of pulmonary embolism. Nonetheless this is considered a positive study. Acute urinary tract infection Ascites, status post paracentesis by interventional radiology on 12/14/2021, results of which are pending, the fluid was sent for different diagnostic studies. Chronic kidney disease Severe pulmonary hypertension Chronic cor pulmonale History of uterine cancer status post radiation Acute on chronic anemia, patient received 1 unit of packed RBCs since admission. Benign essential hypertension Type 2 diabetes Recommendation: Transitioned heparin to alcohol. Await the results of the peritoneal fluid from paracentesis. Continue diuretics We'll continue to follow. Patient could be considered for outpatient follow-up by other consultants regarding her ascites and her other medical issues if discharged home Time with Patient: Less than 30
--- NOTE | 2021-12-14 13:00 | P.PN ---
Subjective Progress Note Date: 12/14/21 HISTORY OF PRESENT ILLNESS: This is a 66-year-old female with a past medical history significant for hypertension, hyperlipidemia, chronic kidney disease, pericardial effusion, severe pulmonary hypertension, and congestive heart failure with preserved ejection fraction. Patient follows in the office with Dr. Li. We have been asked to see the patient in consultation for CHF. Patient examined at the bedside. Patient states she presented to the emergency room because she was having difficulty urinating. She was diagnosed with a urinary tract infection and has been receiving antibiotics. She denies any shortness of breath. She denies chest pain or pressure. She reports chronic lower extremity edema, left worse than right, than is unchanged from her baseline. She reports abdominal bloating. She is receiving IV Lasix 60mg BID. Interventional radiology has been consulted for paracentesis. Patient remains on IV heparin as she underwent a VQ scan revealing high probability for pulmonary embolism. The patient denies any history of DVT or PE. The patient was also found to be anemic on admission with a hemoglobin of 6.9. She received 1 unit packed RBCs. The patient states that she has a history of anemia. She is unsure if she has had endoscopy in the past. She denies any dark stools or bright red blood in her stools. * EKG reveals sinus mechanism with no signs of acute ischemia * Chest xray findings consistent with mild CHF. Marked cardiomegaly and small bilateral pleural effusions. * V/Q scan: High probability of pulmonary embolism * Lower extremity Doppler: Negative for DVT bilaterally * Laboratory data: WBC 5.0. Hemoglobin 8.0. Platelet count 315. Sodium 137. Potassium 4.6. BUN 88. Creatinine 1.59. ProBNP 12,000. * Current home cardiac medications include hydralazine 50 mg twice a day, Imdur 30 mg daily, Lasix 40 mg 3 times a day, carvedilol 6.25 mg twice a day * Most recent echocardiogram obtained in August 2021 revealed ejection fraction 50-55%, mild LVH, right ventricle moderate to severely enlarged, mild MR, moderate TR, moderate pulmonary hypertension with RVSP of 53.40 mmHg, moderate generalized pericardial effusion * Cardiac catheterization history: unknown 12/13/2021 Patient examined this morning at the bedside. She denies chest pain or pressure. Denies SOB. She continues to repeat abdominal bloating. She remains on IV lasix. 12/14/2021 Patient examined this morning at the bedside. She denies chest pain or pressure. Denies SOB. She is to undergo diagnostic paracentesis. Vital signs are stable. Echocardiogram completed revealing ejection fraction 50-55%, mild mitral regurgitation, mild tricuspid regurgitation. PHYSICAL EXAM: VITAL SIGNS: Reviewed. GENERAL: Well-developed in no acute distress. HEENT: Head is normocephalic. Pupils are equal, round. Sclerae anicteric. Mucous membranes of the mouth are moist. Neck supple. No JVD or thyromegaly LUNGS: Respirations even and unlabored. Lungs diminished bilaterally. HEART: Regular rate and rhythm. S1 and S2 heard. Systolic murmur noted. ABDOMEN: Soft. Distended. Nontender. EXTREMITIES: Normal range of motion. No clubbing or cyanosis. Peripheral pulses intact. 2+ bilateral lower extremity edema, left worse than right NEUROLOGIC: Awake and alert. Oriented x 3. ASSESSMENT: Urinary tract infection Acute on chronic congestive heart failure with preserved ejection fraction High probability of pulmonary embolism, per VQ scan Hypertension Hyperlipidemia Chronic kidney disease History of pericardial effusion History of severe pulmonary hypertension History of uterine cancer Acute on chronic anemia, s/p 1 unit RBC transfusion PLAN: Continue home cardiac medications Continue IV lasix Monitor kidney function. Daily weights. Accurate I&O Patient transitioned to Eliquis per pulmonary Further recommendations pending patient course Nurse practitioner note has been reviewed by physician. Signing provider agrees with the documented findings, assessment, and plan of care. Objective - Vital Signs Vital signs: Vital Signs Temp 98.4 F 12/14/21 03:52 Pulse 70 12/14/21 10:16 Resp 16 12/14/21 10:16 BP 155/87 12/14/21 10:16 Pulse Ox 94 L 12/14/21 10:16 FiO2 Intake & Output 12/13/21 12/14/21 12/14/21 18:59 06:59 18:59 Intake Total 370 Output Total 1625 450 Balance -1255 -450 Weight 105.8 kg Intake: Intake, IV Titration 250 Amount Heparin Sod,Pork in 0.45% 250 NaCl 25,000 unit In 0.45 % NaCl 1 250ml.bag @ 9. 259 UNITS/KG/HR 10 mls/hr IV .Q24H [facility] Rx#: [id number] Oral 120 Output: Urine 1625 450 Other: Voiding Method Indwelling Catheter Indwelling Catheter # Bowel Movements 2 - Labs CBC & Chem 7: 12/14/21 08:00 12/14/21 08:00 Labs: Abnormal Lab Results - Last 24 Hours (Table) 12/13/21 12/13/21 12/14/21 Range/Units 16:18 19:17 06:10 RBC (3.80-5.40) m/uL Hgb (11.4-16.0) gm/dL Hct (34.0-46.0) % MCV (80.0-100.0) fL MCHC (31.0-37.0) g/dL Lymphocytes # (1.0-4.8) k/uL Chloride (98-107) mmol/L Carbon Dioxide (22-30) mmol/L BUN (7-17) mg/dL Creatinine (0.52-1.04) mg/dL Glucose (74-99) mg/dL POC Glucose (mg/dL) 185 H 229 H 138 H (75-99) mg/dL Calcium (8.4-10.2) mg/dL Total Bilirubin (0.2-1.3) mg/dL AST (14-36) U/L Alkaline Phosphatase (38-126) U/L Total Protein (6.3-8.2) g/dL Albumin (3.5-5.0) g/dL 12/14/21 12/14/21 12/14/21 Range/Units 08:00 08:00 11:50 RBC 2.47 L (3.80-5.40) m/uL Hgb 7.6 L (11.4-16.0) gm/dL Hct 26.2 L (34.0-46.0) % MCV 106.0 H (80.0-100.0) fL MCHC 28.9 L (31.0-37.0) g/dL Lymphocytes # 0.4 L (1.0-4.8) k/uL Chloride 113 H (98-107) mmol/L Carbon Dioxide 19 L (22-30) mmol/L BUN 80 H (7-17) mg/dL Creatinine 1.59 H (0.52-1.04) mg/dL Glucose 114 H (74-99) mg/dL POC Glucose (mg/dL) 161 H (75-99) mg/dL Calcium 7.8 L (8.4-10.2) mg/dL Total Bilirubin 0.1 L (0.2-1.3) mg/dL AST 13 L (14-36) U/L Alkaline Phosphatase 135 H (38-126) U/L Total Protein 4.9 L (6.3-8.2) g/dL Albumin 2.3 L (3.5-5.0) g/dL Microbiology - Last 24 Hours (Table) 12/10/21 19:10 Blood Culture - Preliminary Blood No Growth after 72 hours 12/10/21 19:20 Blood Culture - Preliminary Blood No Growth after 72 hours
--- NOTE | 2021-12-14 13:08 | P.PCN ---
Date of Procedure: 12/14/21 Preoperative Diagnosis: ascites Postoperative Diagnosis: same Procedure(s) Performed: paracentesis Anesthesia: none Estimated Blood Loss (ml): 5 Pathology: other (specimen to path) Condition: stable Disposition: no change Indications for Procedure: ascites Operative Findings: 4L yellow fluid
--- NOTE | 2021-12-14 13:11 | US ---
EXAMINATION TYPE: US paracentesis abd w/image DATE OF EXAM: 12/14/2021 COMPARISON: NONE HISTORY: Ascites. PROCEDURE: Maximal barrier technique was utilized. The skin overlying a suitable pocket of fluid was localized with ultrasound and the overlying skin was prepped and draped. Ultrasound was utilized with sterile technique. Lidocaine was used for local anesthesia and a skin bibi made with a scalpel. Catheter was advanced under direct ultrasound guidance into a suitable pocket of fluid and approximately 4 liters of yellow fluid were removed. Catheter was withdrawn and hemostasis achieved. There is no immediate complication; the patient is discharged in stable condition. IMPRESSION: STATUS POST ULTRASOUND GUIDED PARACENTESIS FOR PALLIATION OF ASCITES. THIS PROCEDURE WA S PERFORMED BY THE UNDERSIGNED. Specimen obtained for laboratory analysis.
--- NOTE | 2021-12-14 13:54 | P.PN ---
Subjective Patient was examined at bedside today states that her abdominal distention is improved compared to yesterday. 4 L were removed through the paracentesis. Objective - Vital Signs Vital signs: Vital Signs Temp 98.4 F 12/14/21 03:52 Pulse 71 12/14/21 13:13 Resp 16 12/14/21 13:13 BP 174/72 12/14/21 13:13 Pulse Ox 95 12/14/21 13:13 FiO2 Intake & Output 12/13/21 12/14/21 12/14/21 18:59 06:59 18:59 Intake Total 370 0 Output Total 1625 450 925 Balance -1255 -450 -925 Weight 105.8 kg Intake: Intake, IV Titration 250 Amount Heparin Sod,Pork in 0.45% 250 NaCl 25,000 unit In 0.45 % NaCl 1 250ml.bag @ 9. 259 UNITS/KG/HR 10 mls/hr IV .Q24H [facility] Rx#: [id number] Oral 120 0 Output: Urine 1625 450 925 Other: Voiding Method Indwelling Catheter Indwelling Catheter # Bowel Movements 2 - Exam General: non toxic, no acute distress, alert oriented to time place and person Head: atraumatic, normocephalic, symmetric Eyes: no lid lesion], anicteric sclera Mouth: no lip lesion, mucus membranes moist Cardiovascular: S1S2 reg rate and rhythm, no murmur, no gallop Lungs: Diminished breath sounds bilaterally Abdominal: soft, distended, ascites positive - status post paracentesis Ext: +2 bilateral lower extremity edema Neuro: Alert oriented to time place and person, exam grossly nonfocal Psych: Mood and affect appropriate, patient not so certain - Labs CBC & Chem 7: 12/14/21 08:00 12/14/21 08:00 Labs: Abnormal Lab Results - Last 24 Hours (Table) 12/13/21 12/13/21 12/14/21 Range/Units 16:18 19:17 06:10 RBC (3.80-5.40) m/uL Hgb (11.4-16.0) gm/dL Hct (34.0-46.0) % MCV (80.0-100.0) fL MCHC (31.0-37.0) g/dL Lymphocytes # (1.0-4.8) k/uL Chloride (98-107) mmol/L Carbon Dioxide (22-30) mmol/L BUN (7-17) mg/dL Creatinine (0.52-1.04) mg/dL Glucose (74-99) mg/dL POC Glucose (mg/dL) 185 H 229 H 138 H (75-99) mg/dL Calcium (8.4-10.2) mg/dL Total Bilirubin (0.2-1.3) mg/dL AST (14-36) U/L Alkaline Phosphatase (38-126) U/L Total Protein (6.3-8.2) g/dL Albumin (3.5-5.0) g/dL 12/14/21 12/14/21 12/14/21 Range/Units 08:00 08:00 11:50 RBC 2.47 L (3.80-5.40) m/uL Hgb 7.6 L (11.4-16.0) gm/dL Hct 26.2 L (34.0-46.0) % MCV 106.0 H (80.0-100.0) fL MCHC 28.9 L (31.0-37.0) g/dL Lymphocytes # 0.4 L (1.0-4.8) k/uL Chloride 113 H (98-107) mmol/L Carbon Dioxide 19 L (22-30) mmol/L BUN 80 H (7-17) mg/dL Creatinine 1.59 H (0.52-1.04) mg/dL Glucose 114 H (74-99) mg/dL POC Glucose (mg/dL) 161 H (75-99) mg/dL Calcium 7.8 L (8.4-10.2) mg/dL Total Bilirubin 0.1 L (0.2-1.3) mg/dL AST 13 L (14-36) U/L Alkaline Phosphatase 135 H (38-126) U/L Total Protein 4.9 L (6.3-8.2) g/dL Albumin 2.3 L (3.5-5.0) g/dL Microbiology - Last 24 Hours (Table) 12/10/21 19:10 Blood Culture - Preliminary Blood No Growth after 72 hours 12/10/21 19:20 Blood Culture - Preliminary Blood No Growth after 72 hours Assessment and Plan Assessment: Generalized anasarca with moderate ascites No previous history of alcohol intake or liver disease, she does have history of uterine cancer CT abdomen and pelvis was done which showed extensive edema abdominal ascites cardiomegaly and pericardial effusion no signs of liver disease on computed tomography scan no abnormal masses noted Patient underwent paracentesis removed 4 L we will continue to monitor for any cardiorenal. No indication to do IV albumin at this time. Pending paracentesis fluid analysis, SAAG needs to be calculated. Possible exacerbation of congestive heart failure, history of valvular heart disease Generalized anasarca in the setting of possible congestive heart failure, history of valvular heart disease and moderate pulmonary hypertension we'll consult cardiology for evaluation urinary tract infection next line continue Echocardiogram reviewed further recommendations from cardiology regarding pericardial fluid. Abnormal lung perfusion scan Transitioned from IV heparin drip to by mouth Eliquis Perfusion scan shows high probability of pulmonary embolism Negative lower extremity ultrasound for clot burden estimated Urinary tract infection Continue ceftriaxone to complete 5 days Chronic kidney disease Patient has stage III chronic kidney disease Creatinine at baseline Continue to monitor History of uterine cancer Patient has stage I cancer, apparently was treated at [facility] Current status unclear Patient to follow with [facility] after discharge Diabetes mellitus Hold oral hypoglycemics Continue insulin sliding scale Chronic stable medical condition Hypertension Hyperlipidemia Gout Constipation-continue with bowel regimen DVT prophylaxis: Heparin CODE STATUS: Full code Discharge plan: Back to home pending hospital course PT/OT. Disposition: Pending fluid analysis from the peritoneal fluid. Patient also needs to be evaluated by PT/OT she's feeling extremely weak. Anticipate discharge in the next 24 hours. Patient will need to be discharge on a Eliquis 10 mg twice a day for 7 days and then transitioned to 5 mg twice a day.
[2021-12-14] MEDS: MORPHINE SULFATE 4 MG/ML SYRINGE IV PRN ×2 (16:38→22:32)
[2021-12-14 16:47] LABS: Glucose,Whole Blood 222 mg/dL (70-110)
[2021-12-14 18:53] LABS: Hepatitis A Antibody IgM Nonreactive (Nonreactive); Hepatitis B Core IgM Nonreactive (Nonreactive); Hepatitis B Surface Antigen Nonreactive (Nonreactive); Hepatitis C IgG Antibody Nonreactive (Nonreactive)
[2021-12-14 20:02] LABS: Glucose,Whole Blood 187 mg/dL (70-110)
[2021-12-14 20:40] LABS: Albumin, Fluid Source Ascites; T. Protein, Body Fluid Source Ascites; Total Protein, Body Fluid 3290 mg/dL
[2021-12-14 21:36] LABS: Appearance,BF Cloudy
[2021-12-15] MEDS: ACETAMINOPHEN TAB 325 MG TAB PO PRN ×2 (05:23→23:00)
[2021-12-15 06:00] LABS: Glucose,Whole Blood 146 mg/dL (70-110)
[2021-12-15] MEDS: INSULIN ASPART (NovoLOG) 100 UNIT/ML VIAL SQ SCH ×4 (06:24→21:47)
[2021-12-15] MEDS: FUROSEMIDE 10 MG/ML 10 ML VIAL IV SCH (08:58)
[2021-12-15] MEDS: ISOSORBIDE MONONITRATE ER 30 MG TAB.ER.24H PO SCH (08:59)
[2021-12-15] MEDS: carvediloL 6.25 MG TAB PO SCH ×2 (08:59→20:19)
[2021-12-15] MEDS: allopurinoL 100 MG TAB PO SCH (08:59)
[2021-12-15] MEDS: hydrALAZINE HCL 50 MG TAB PO SCH ×2 (08:59→20:19)
[2021-12-15] MEDS: APIXABAN 5 MG TAB PO SCH ×2 (08:59→20:20)
[2021-12-15 09:25] LABS: Basophils % (A) 1 %; Eosinophils # (A) 0.2 k/uL (0-0.7); Eosinophils % (A) 5 %; HCT 25.9 % (34.0-46.0); HGB 7.7 gm/dL (11.4-16.0); Hypochromasia Marked; Lymphocytes # (A) 0.5 k/uL (1.0-4.8); Lymphocytes % (A) 13 %; MCH 31.5 pg (25.0-35.0); MCHC 29.7 g/dL (31.0-37.0); MCV 106.1 fL (80.0-100.0); Macrocytosis Moderate; Mean Platelet Volume 7.6; Monocytes # (A) 0.3 k/uL (0-1.0); Monocytes % (A) 6 %; Neutrophils # (A) 3.1 k/uL (1.3-7.7); Neutrophils % (A) 74 %; Platelet Count 317 k/uL (150-450); RBC 2.44 m/uL (3.80-5.40); RDW 14.6 % (11.5-15.5); WBC 4.1 k/uL (3.8-10.6)
[2021-12-15 09:52] LABS: Calcium 7.9 mg/dL (8.4-10.2); Potassium 4.3 mmol/L (3.5-5.1)
--- NOTE | 2021-12-15 11:04 | P.PN ---
Subjective Progress Note Date: 12/15/21 Patient is doing well today, no complaints. Doing well after her paracentesis. Still has a little bit of pain, specifically on pressing on her abdomen, however, feels improved. Her kidney function is showing a creatinine of 1.7 today. Peritoneal fluid studies concerning for a nonsclerotic, non-portal hypertension process - differential includes infection, carcinomatosis, nephrotic syndrome. Gen: awake, alert HEENT: normocephalic, atraumatic, good hearing acuity, moist mucous membranes Resp: good air exchange, breathing comfortably with no accessory muscle use, clear to auscultation bilaterally CVS: good distal perfusion x 4, regular rate and rhythm GI: soft, NTTP, ND : no SPT, no CVAT, gonsalez catheter not present MSK: Diffuse pitting edema, no clubbing Neuro: non-focal, moving all extremities Psych: cooperative, euthymic mood Assessment/plan: Generalized anasarca with moderate ascites Chronic kidney disease, stage IIIB No previous history of alcohol intake or liver disease, she does have history of uterine cancer CT abdomen and pelvis was done which showed extensive edema abdominal ascites cardiomegaly and pericardial effusion no signs of liver disease on computed tomography scan no abnormal masses noted Patient underwent paracentesis removed 4 L we will continue to monitor for any cardiorenal. No indication to do IV albumin at this time. Paracentesis fluid analysis, SAAG less than 1.1, total protein greater than 2.5. Urine protein to creatinine ratio pending Urine sodium pending History of valvular heart disease Volume overload Generalized anasarca in the setting of history of valvular heart disease and moderate pulmonary hypertension we'll consult cardiology for evaluation urinary tract infection next line continue Echocardiogram reviewed further recommendations from cardiology regarding peric ardial fluid, no systolic or diastolic dysfunction noted Abnormal lung perfusion scan Transitioned from IV heparin drip to by mouth Eliquis Perfusion scan shows high probability of pulmonary embolism Negative lower extremity ultrasound for clot burden estimated Urinary tract infection Continue ceftriaxone to complete 5 days, completed History of uterine cancer Patient has stage I cancer, apparently was treated at [facility] Current status unclear Patient to follow with [facility] after discharge Follow-up cytology from peritoneal fluid Diabetes mellitus Hold oral hypoglycemics Continue insulin sliding scale Chronic stable medical condition Hypertension Hyperlipidemia Gout Constipation-continue with bowel regimen DVT prophylaxis: Heparin CODE STATUS: Full code Discharge plan: Back to home pending hospital course PT/OT. Objective - Vital Signs Vital signs: Vital Signs Temp 98.3 F 12/15/21 05:27 Pulse 55 L 12/15/21 09:08 Resp 16 12/15/21 09:08 BP 143/60 12/15/21 09:08 Pulse Ox 98 12/15/21 09:08 FiO2 Intake & Output 12/14/21 12/15/21 12/15/21 18:59 06:59 18:59 Intake Total 480 Output Total 1275 575 Balance -795 -575 Weight 105.8 kg 104.7 kg Intake: Oral 480 Output: Urine 1275 575 Other: Voiding Method Indwelling Catheter Indwelling Catheter # Bowel Movements 2 - Labs CBC & Chem 7: 12/15/21 08:15 12/15/21 08:15 Labs: Abnormal Lab Results - Last 24 Hours (Table) 12/14/21 12/14/21 12/14/21 Range/Units 11:50 16:45 20:00 RBC (3.80-5.40) m/uL Hgb (11.4-16.0) gm/dL Hct (34.0-46.0) % MCV (80.0-100.0) fL MCHC (31.0-37.0) g/dL Lymphocytes # (1.0-4.8) k/uL Chloride (98-107) mmol/L Carbon Dioxide (22-30) mmol/L BUN (7-17) mg/dL Creatinine (0.52-1.04) mg/dL Glucose (74-99) mg/dL POC Glucose (mg/dL) 161 H 222 H 187 H (75-99) mg/dL Calcium (8.4-10.2) mg/dL 12/15/21 12/15/21 12/15/21 Range/Units 05:59 08:15 08:15 RBC 2.44 L (3.80-5.40) m/uL Hgb 7.7 L (11.4-16.0) gm/dL Hct 25.9 L (34.0-46.0) % MCV 106.1 H (80.0-100.0) fL MCHC 29.7 L (31.0-37.0) g/dL Lymphocytes # 0.5 L (1.0-4.8) k/uL Chloride 113 H (98-107) mmol/L Carbon Dioxide 20 L (22-30) mmol/L BUN 75 H (7-17) mg/dL Creatinine 1.68 H (0.52-1.04) mg/dL Glucose 102 H (74-99) mg/dL POC Glucose (mg/dL) 146 H (75-99) mg/dL Calcium 7.9 L (8.4-10.2) mg/dL Microbiology - Last 24 Hours (Table) 12/10/21 19:10 Blood Culture - Preliminary Blood No Growth after 96 hours 12/10/21 19:20 Blood Culture - Preliminary Blood No Growth after 96 hours
--- NOTE | 2021-12-15 11:44 | P.PN ---
Subjective Progress Note Date: 12/15/21 Patient seen resting comfortably in bed today. She underwent a paracentesis yesterday and states she is feeling better. She denies shortness of breath or chest pain. She has been transitioned to Eliquis for treatment of pulmonary embolism. Will transition patient to oral Lasix today. BUN is 75 creatinine is 1.68. Hemoglobin is 7.7 today Patient is awaiting transfer to rehab. Objective - Vital Signs Vital signs: Vital Signs Temp 98.3 F 12/15/21 05:27 Pulse 55 L 12/15/21 09:08 Resp 16 12/15/21 09:08 BP 143/60 12/15/21 09:08 Pulse Ox 98 12/15/21 09:08 FiO2 Intake & Output 12/14/21 12/15/21 12/15/21 18:59 06:59 18:59 Intake Total 480 Output Total 1275 575 350 Balance -795 -575 -350 Weight 105.8 kg 104.7 kg 104.7 kg Intake: Oral 480 Output: Urine 1275 575 350 Other: Voiding Method Indwelling Catheter Indwelling Catheter Indwelling Catheter # Bowel Movements 2 - Exam PHYSICAL EXAM: VITAL SIGNS: Reviewed. GENERAL: Well-developed in no acute distress. HEENT: Head is normocephalic. Pupils are equal, round. Sclerae anicteric. Mucous membranes of the mouth are moist. NECK: Supple. No JVD or thyromegaly RESPIRATORY: Respirations even and unlabored. Lungs diminished to auscultation bilaterally. CARDIO: Regular rate and rhythm. S1 and S2 heard. No murmur or gallops. Abdominal: Abdomen is large, soft and nontender EXTREMITIES: Normal range of motion. No clubbing or cyanosis. Peripheral pulses intact. Negative for bilateral lower extremity edema NEURO: Orientated to person, time, mood is appropriate - Labs CBC & Chem 7: 12/15/21 08:15 12/15/21 08:15 Labs: Abnormal Lab Results - Last 24 Hours (Table) 12/14/21 12/14/21 12/14/21 Range/Units 11:50 16:45 20:00 RBC (3.80-5.40) m/uL Hgb (11.4-16.0) gm/dL Hct (34.0-46.0) % MCV (80.0-100.0) fL MCHC (31.0-37.0) g/dL Lymphocytes # (1.0-4.8) k/uL Chloride (98-107) mmol/L Carbon Dioxide (22-30) mmol/L BUN (7-17) mg/dL Creatinine (0.52-1.04) mg/dL Glucose (74-99) mg/dL POC Glucose (mg/dL) 161 H 222 H 187 H (75-99) mg/dL Calcium (8.4-10.2) mg/dL 12/15/21 12/15/21 12/15/21 Range/Units 05:59 08:15 08:15 RBC 2.44 L (3.80-5.40) m/uL Hgb 7.7 L (11.4-16.0) gm/dL Hct 25.9 L (34.0-46.0) % MCV 106.1 H (80.0-100.0) fL MCHC 29.7 L (31.0-37.0) g/dL Lymphocytes # 0.5 L (1.0-4.8) k/uL Chloride 113 H (98-107) mmol/L Carbon Dioxide 20 L (22-30) mmol/L BUN 75 H (7-17) mg/dL Creatinine 1.68 H (0.52-1.04) mg/dL Glucose 102 H (74-99) mg/dL POC Glucose (mg/dL) 146 H (75-99) mg/dL Calcium 7.9 L (8.4-10.2) mg/dL Microbiology - Last 24 Hours (Table) 12/10/21 19:10 Blood Culture - Preliminary Blood No Growth after 96 hours 12/10/21 19:20 Blood Culture - Preliminary Blood No Growth after 96 hours Assessment and Plan Assessment: Acute on chronic congestive heart failure with preserved ejection fraction Acute on chronic anemia, s/p 1 unit RBC transfusion Urinary tract infection High probability of pulmonary embolism, per VQ scan Hypertension Hyperlipidemia Chronic kidney disease History of pericardial effusion History of severe pulmonary hypertension History of uterine cancer Acute on chronic anemia, s/p 1 unit RBC transfusion Plan: Transition patient from IV to oral Lasix 40 mg twice a day Continue with Eliquis for anticoagulation Continue with all other current cardiac medications Continue to monitor kidney function. Daily weights. Accurate intake and ou tput. Further recommendations based on clinical course The above impression and plan of care have been discussed and directed by the signing physician. Aurora Trujillo, nurse practitioner, acting as scribe for signing physician.
[2021-12-15 11:57] LABS: Glucose,Whole Blood 202 mg/dL (70-110)
--- NOTE | 2021-12-15 14:03 | P.PN ---
Subjective Progress Note Date: 12/15/21 Principal diagnosis: Ascites The patient is seen and examined as a follow-up for new onset ascites. The past medical history of uterine cancer with radiation therapy, chronic anemia, hypertension and chronic renal disease. She underwent paracentesis yesterday with 4 L of fluid removed. Fluid studies and SAAG score not consistent with portal hypertension. Hepatitis panel nonreactive. LFTs remain within normal limits. She denies any abdominal pain, nausea or vomiting. Fluid cytology is currently pending. She states she has seen Dr. Park with nephrology in the past. Objective - Vital Signs Vital signs: Vital Signs Temp 98.3 F 12/15/21 05:27 Pulse 55 L 12/15/21 09:08 Resp 16 12/15/21 09:08 BP 143/60 12/15/21 09:08 Pulse Ox 98 12/15/21 09:08 FiO2 Intake & Output 12/14/21 12/15/21 12/15/21 18:59 06:59 18:59 Intake Total 480 Output Total 1275 575 Balance -795 -575 Weight 105.8 kg 104.7 kg Intake: Oral 480 Output: Urine 1275 575 Other: Voiding Method Indwelling Catheter Indwelling Catheter # Bowel Movements 2 - Exam General appearance: The patient is alert, oriented, appears in no acute distress. HET: Head is normocephalic and atraumatic. Conjunctiva pink. Sclera anicteric. Neck: Supple without lymphadenopathy. Abdomen: Soft, nontender to palpation, nondistended. No guarding or rigidity. Extremities: Normal skin color and turgor. Bilateral pitting edema. Skin: No rashes, no jaundice Neurological: No focal deficits. Alert and oriented -3. - Labs CBC & Chem 7: 12/15/21 08:15 12/15/21 08:15 Labs: Abnormal Lab Results - Last 24 Hours (Table) 12/14/21 12/14/21 12/14/21 Range/Units 08:00 11:50 16:45 RBC 2.47 L (3.80-5.40) m/uL Hgb 7.6 L (11.4-16.0) gm/dL Hct 26.2 L (34.0-46.0) % MCV 106.0 H (80.0-100.0) fL MCHC 28.9 L (31.0-37.0) g/dL Lymphocytes # 0.4 L (1.0-4.8) k/uL Chloride (98-107) mmol/L Carbon Dioxide (22-30) mmol/L BUN (7-17) mg/dL Creatinine (0.52-1.04) mg/dL Glucose (74-99) mg/dL POC Glucose (mg/dL) 161 H 222 H (75-99) mg/dL Calcium (8.4-10.2) mg/dL 12/14/21 12/15/21 12/15/21 Range/Units 20:00 05:59 08:15 RBC 2.44 L (3.80-5.40) m/uL Hgb 7.7 L (11.4-16.0) gm/dL Hct 25.9 L (34.0-46.0) % MCV 106.1 H (80.0-100.0) fL MCHC 29.7 L (31.0-37.0) g/dL Lymphocytes # 0.5 L (1.0-4.8) k/uL Chloride (98-107) mmol/L Carbon Dioxide (22-30) mmol/L BUN (7-17) mg/dL Creatinine (0.52-1.04) mg/dL Glucose (74-99) mg/dL POC Glucose (mg/dL) 187 H 146 H (75-99) mg/dL Calcium (8.4-10.2) mg/dL 12/15/21 Range/Units 08:15 RBC (3.80-5.40) m/uL Hgb (11.4-16.0) gm/dL Hct (34.0-46.0) % MCV (80.0-100.0) fL MCHC (31.0-37.0) g/dL Lymphocytes # (1.0-4.8) k/uL Chloride 113 H (98-107) mmol/L Carbon Dioxide 20 L (22-30) mmol/L BUN 75 H (7-17) mg/dL Creatinine 1.68 H (0.52-1.04) mg/dL Glucose 102 H (74-99) mg/dL POC Glucose (mg/dL) (75-99) mg/dL Calcium 7.9 L (8.4-10.2) mg/dL Microbiology - Last 24 Hours (Table) 12/10/21 19:10 Blood Culture - Preliminary Blood No Growth after 96 hours 12/10/21 19:20 Blood Culture - Preliminary Blood No Growth after 96 hours Assessment and Plan (1) Ascites Narrative/Plan: 66-year-old female with past medical history of uterine cancer status post radiation therapy approximately 1 year ago, type 2 diabetes mellitus, anemia of chronic disease, hypertension, chronic renal disease and hyperlipidemia. On admission she was noted to have elevated d-dimer, she was anemic. She received started on IV heparin drip for pulmonary embolism found on VQ scan. She had a CT of the abdomen that showed abdominal ascites, she had a follow-up abdominal ultrasound showing moderate ascites. She has no previous history of reported liver disease, no history of alcoholism, and no history of hepatitis that she is aware of. Started noticing some distention and weight gain over the last 2-3 we eks duration. She is scheduled today for paracentesis. Unknown etiology at this time. We will order fluid studies. Paracentesis completed with 4 L of yellow fluid removed. Fluid studies, SAAG no t consistent with portal hypertension. Will await fluid cytology. Consult placed to nephrology for underlying chronic kidney disease, diuretic management. Current Visit: Yes Status: Acute Code(s): R18.8 - OTHER ASCITES SNOMED Code(s): 689873137 (2) Chronic anemia Current Visit: Yes Status: Acute Code(s): D64.9 - ANEMIA, UNSPECIFIED SNOMED Code(s): 230612727 (3) Chronic kidney disease Narrative/Plan: Nephrology consulted Current Visit: Yes Status: Acute Code(s): N18.9 - CHRONIC KIDNEY DISEASE, UNSPECIFIED SNOMED Code(s): 598666591 Plan: 1. Continue symptomatic and supportive care 2. Continue Lasix 40 mg twice a day 3. Status post paracentesis and fluid studies. Ascitic fluid cytology pending 4. Nephrology consulted for chronic kidney disease, further management of diuretics 5. Low-sodium, renal diet 6. Dietitian consulted to discuss renal/low-sodium diet per patient request Thank you for this consultation, we will continue to follow Dr. Darion Johnson I agree with the dictator's note, documented as a scribe by Rosa Gunn.
--- NOTE | 2021-12-15 14:40 | P.PN ---
Subjective Progress Note Date: 12/15/21 Principal diagnosis: Acute pulmonary embolism This is a 66-year-old female with history of multiple medical problems including hypertension, diabetes, and recently diagnosed uterine cancer. Patient underwent radiation treatment for her uterine cancer, and did not require any mathis rgical intervention. Patient presented to the ER on 12/10/21, mostly with 2 weeks history of difficulty urinating and burning sensation on urination. Patient was recently diagnosed with urinary tract infection, and she was treated on outpatient basis with Cipro and Macrobid. Patient was also complaining of abdominal cramps, abdominal distention, bloating sensation in the abdomen, and significant swelling and fluid retention in her lower extremities. CT of the abdomen showed extensive subcutaneous edema and abdominal ascites with mild the pleural effusions and basilar atelectasis. It was also evidence of cardiomegaly and pericardial effusion. VQ scan ordered by the admitting physician showed high probability for pulmonary embolism. Could not have a CT angiogram of the chest because of her renal functioning, creatinine on this admission was 1.60. At any rate considering her VQ scan abnormality this consult was initiated. Patient has very minimal shortness of breath, no chest pain, no cough, no wheezing, no fever, no chills, no hemoptysis. Venous Doppler of the legs was negative for DVT. Patient is now on heparin, she was seen by many consultants since admission including cardiology scheduled to have 2-D echocardiogram, advised to continue Lasix, and recommended interventional radiology for paracentesis. Patient is still on heparin at this point, and considering that she is being considered for paracentesis, I would hold on transitioning the patient to oral anticoagulation therapy. Reevaluated today on 12/13/2021, patient was seen yesterday on consultation for pulmonary embolism, she remains on heparin, ultrasound of the abdomen today showed moderate ascites, patient may or may not undergo paracentesis, and that will be decided upon by the radiologist. I am strongly recommending paracentesis most for diagnostic purposes. Patient does have history of uterine cancer, and she seems to be developing significant increase in abdominal girth, and she seems to have significant fluid retention. Pulmonary-dawkins in the meantime patient is on heparin, and she could be transitioned to oral treatment especially if the decision is made not to do paracentesis on this patient. PTT today is therapeutic. Patient had a relatively normal electrolytes, kidney functioning is about the same with a BUN of 88 creatinine 1.59. Reevaluated today on 12/14/2021, patient remains on the third floor, she underwent uneventful paracentesis today by interventional radiology, fluid was sent for different diagnostic studies. Which are pending. In the meantime the patient feels comfortable, less abdominal distention, and she was on heparin until early this morning discontinued for the paracentesis. And today I'm recommending that she goes on eliquis. CBC is relatively unremarkable except for hemoglobin of 7.6. A left lites are normal BUN is 80 creatinine 1.59, basically about the same since admission Reevaluated today on 12/15/21, patient continues to do quite well, relatively asymptomatic, she has no active pulmonary symptoms. Patient is awaiting transfer to rehab. Tolerating oral anticoagulation treatment quite well Objective - Vital Signs Vital signs: Vital Signs Temp 98.3 F 12/15/21 05:27 Pulse 60 12/15/21 12:35 Resp 16 12/15/21 12:35 BP 134/55 12/15/21 12:35 Pulse Ox 94 L 12/15/21 12:35 FiO2 Intake & Output 12/14/21 12/15/21 12/15/21 18:59 06:59 18:59 Intake Total 480 200 Output Total 1275 575 350 Balance -795 -575 -150 Weight 105.8 kg 104.7 kg 104.7 kg Intake: Oral 480 200 Output: Urine 1275 575 350 Other: Voiding Method Indwelling Catheter Indwelling Catheter Indwelling Catheter # Bowel Movements 2 - Exam Physical Exam: Revealed a 66-year-old female pleasant in no distress, on room air. Head: Atraumatic, normocephalic. HEENT:[Neck is supple.] [No neck masses.] [No thyromegaly.] [No JVD.] Chest: [Clear throughout, no crackles, no rhonchi, no wheezes.] Cardiac Exam: [Normal S1 and S2, no S3 gallop, no murmur.] Abdomen: Obese, positive ascites, no rebound, no guarding. Positive bowel sounds. Extremities: [No clubbing, 2+ bipedal edema, no cyanosis.] Neurological Exam: [No focal neurologic deficit.] Alert oriented 3. Psychiatric: Normal mood affect and normal mental status examination. Skin: No rashes. - Labs CBC & Chem 7: 12/15/21 08:15 12/15/21 08:15 Labs: Abnormal Lab Results - Last 24 Hours (Table) 12/14/21 12/14/21 12/15/21 Range/Units 16:45 20:00 05:59 RBC (3.80-5.40) m/uL Hgb (11.4-16.0) gm/dL Hct (34.0-46.0) % MCV (80.0-100.0) fL MCHC (31.0-37.0) g/dL Lymphocytes # (1.0-4.8) k/uL Chloride (98-107) mmol/L Carbon Dioxide (22-30) mmol/L BUN (7-17) mg/dL Creatinine (0.52-1.04) mg/dL Glucose (74-99) mg/dL POC Glucose (mg/dL) 222 H 187 H 146 H (70-110) mg/dL Calcium (8.4-10.2) mg/dL 12/15/21 12/15/21 12/15/21 Range/Units 08:15 08:15 11:55 RBC 2.44 L (3.80-5.40) m/uL Hgb 7.7 L (11.4-16.0) gm/dL Hct 25.9 L (34.0-46.0) % MCV 106.1 H (80.0-100.0) fL MCHC 29.7 L (31.0-37.0) g/dL Lymphocytes # 0.5 L (1.0-4.8) k/uL Chloride 113 H (98-107) mmol/L Carbon Dioxide 20 L (22-30) mmol/L BUN 75 H (7-17) mg/dL Creatinine 1.68 H (0.52-1.04) mg/dL Glucose 102 H (74-99) mg/dL POC Glucose (mg/dL) 202 H (70-110) mg/dL Calcium 7.9 L (8.4-10.2) mg/dL Microbiology - Last 24 Hours (Table) 12/10/21 19:10 Blood Culture - Preliminary Blood No Growth after 96 hours 12/10/21 19:20 Blood Culture - Preliminary Blood No Growth after 96 hours Assessment and Plan Assessment: Impression: Acute pulmonary embolism Acute urinary tract infection Ascites, status post paracentesis by interventional radiology on 12/14/2021, results of which are pending, the fluid was sent for different diagnostic stud ies. Chronic kidney disease Severe pulmonary hypertension Chronic cor pulmonale History of uterine cancer status post radiation Acute on chronic anemia, patient received 1 unit of packed RBCs since admission. Benign essential hypertension Type 2 diabetes Recommendation: Continue eliquis. Agree with transfer to longterm or ECF. Continue diuretics We'll continue to follow. As needed Time with Patient: Less than 30
[2021-12-15 14:42] LABS: Amorphous Sediment,Urine Rare /hpf; Appearance,Urine Cloudy (Clear); Bacteria,Urine Rare /hpf; Bilirubin,Urine Negative (Negative); Blood,Urine Negative (Negative); Color,Urine Yellow; Glucose,Urine (UA) Trace (Negative); Hyaline Casts,Urine 18 /lpf (0-2); Ketones,Urine Negative (Negative); Leukocyte Esterase,Urine Moderate (Negative); Mucus,Urine Rare /hpf; Nitrite,Urine Negative (Negative); PH, Urine 5.5 (5.0-8.0); Protein,Urine 2+ (Negative); RBC,Urine 3 /hpf (0-5); Specific Gravity,Urine 1.008 (1.001-1.035); Squamous Epithelial Cell,Urine 2 /hpf (0-4); Urobilinogen,Urine <2.0 mg/dL (<2.0); WBC,Urine 8 /hpf (0-5)
[2021-12-15 15:12] LABS: Creatinine,Urine Random 39.9 mg/dL; Protein/Creatinine Ratio,Urine 3.484
[2021-12-15 16:57] LABS: Glucose,Whole Blood 193 mg/dL (70-110)
[2021-12-15] MEDS: FUROSEMIDE 40 MG TAB PO SCH (16:59)
[2021-12-15 20:25] LABS: Glucose,Whole Blood 198 mg/dL (70-110)
[2021-12-15] MEDS: MORPHINE SULFATE 4 MG/ML SYRINGE IV PRN (21:48)
[2021-12-16] MEDS: MORPHINE SULFATE 4 MG/ML SYRINGE IV PRN ×2 (01:43→20:10)
[2021-12-16 06:02] LABS: Glucose,Whole Blood 153 mg/dL (70-110)
[2021-12-16] MEDS: INSULIN ASPART (NovoLOG) 100 UNIT/ML VIAL SQ SCH ×4 (06:35→20:20)
--- NOTE | 2021-12-16 10:08 | P.NPCON ---
History of Present Illness - Reason for Consult acute renal failure - History of Present Illness Patient is a 66-year-old female with history of chronic kidney disease NKF stage IV to IIIB with previous creatinine at 1.6 with grams per deciliter in August 2021. Etiology is diabetic kidney disease. Patient also has a history of diastolic CHF pulmonary hypertension and chronic lower extremity edema. She is admitted to the hospital with symptoms of dysuria. Patient was treated for UTI as outpatient but continued to have symptoms. She denied any significant nausea vomiting abdominal pain. No fever here. Blood pressure has not been low. Serum creatinine was initially around 1.6 and decrease down to 11.48 to 1.5 and now back up to 1.68 today. Patient was maintained on IV Lasix and switched to by mouth Lasix yesterday. Patient also had significant ascites and is status post paracentesis yesterday on 12/14/2021 with 4 L of fluid that was removed. Patient has an indwelling Eubanks catheter. 24-hour urine output 1.8 L. Patient has been losing weight during her hospitalization with diuresis. Hemoglobin was low at 6.9 on initial admission. No active bleeding noted. Status post packed RBCs transfusion. Review of Systems As per HPI Past Medical History Past Medical History: Cancer, Diabetes Mellitus, Hypertension, Renal Disease Additional Past Medical History / Comment(s): fall 2 year ago, now walks with cane History of Any Multi-Drug Resistant Organisms: None Reported Past Surgical History: No Surgical Hx Reported Past Anesthesia/Blood Transfusion Reactions: No Reported Reaction Past Psychological History: Depression Smoking Status: Never smoker Past Alcohol Use History: None Reported Past Drug Use History: None Reported - Past Family History Father Family Medical History: Myocardial Infarction ([place]) Additional Family Medical History / Comment(s): father of [place] at 58 years old Mother Additional Family Medical History / Comment(s): mother of old age at 95 years old Medications and Allergies Home Medications Medication Instructions Recorded Confirmed Type allopurinoL [Zyloprim] 100 mg PO DAILY 12/16/20 12/10/21 History Linagliptin [Tradjenta] 5 mg PO DAILY 08/02/21 12/10/21 History Isosorbide Mononitrate ER [Imdur] 30 mg PO DAILY tablet 08/09/21 12/10/21 Rx Ferrous Sulfate [Iron (65 MG 325 mg PO Q48H 10/11/21 12/10/21 History Elemental)] Furosemide [Lasix] 40 mg PO TID 12/10/21 12/10/21 History Insulin Lispro [humaLOG Kwikpen] See Protocol SQ ACHS 12/10/21 12/10/21 History Nitrofurantoin Monohyd/M-Cryst 100 mg PO BID 12/10/21 12/10/21 History [Macrobid] carvediloL [Coreg] 6.25 mg PO BID 12/10/21 12/10/21 History hydrALAZINE HCL [Apresoline] 50 mg PO BID 12/10/21 12/10/21 History sitaGLIPtin [Januvia] 50 mg PO DAILY 12/10/21 12/10/21 History Allergies Allergy/AdvReac Type Severity Reaction Status Date / Time No Known Allergies Allergy Verified 12/10/21 19:18 Physical Exam Vitals: Vital Signs Temp Pulse Resp BP Pulse Ox 12/16/21 04:00 98 F 62 14 133/62 94 L 12/16/21 00:22 99.2 F 66 14 135/59 94 L 12/15/21 20:11 98.7 F 68 12 145/58 94 L 12/15/21 17:02 69 16 151/61 96 12/15/21 12:35 60 16 134/55 94 L Intake and Output 12/15/21 12/16/21 12/16/21 22:59 06:59 14:59 Intake Total 240 Output Total 650 Balance -650 240 Intake: Oral 240 Output: Urine 650 Uretheral (Eubanks) 500 Other: Voiding Method Indwelling Catheter Indwelling Catheter Weight 103.5 kg Patient is awake, comfortable, not in any acute distress Examination of the heart S1 and S2 Examination lungs bilateral breath sounds are heard Abdomen is soft nontender distended. Ascites is noted Examination lower extremities shows chronic edema chronic skin changes edema about 3+ bilaterally BRACER exam grossly intact Results - Lab Results Most recent lab results Calcium 7.9 mg/dL (8.4-10.2) L 12/15/21 08:15 Magnesium 2.2 mg/dL (1.6-2.3) 12/10/21 16:10 Urine Creatinine 39.9 mg/dL 12/15/21 14:29 Urine Total Protein 139.0 mg/dL 12/15/21 14:29 12/15/21 08:15 12/15/21 08:15 Assessment and Plan Assessment: 1. Chronic kidney disease NKF stage IV to IIIB with baseline creatinine around 1.6 mg/dL etiology is diabetic kidney disease. Patient's serum creatinine was down to around 1.48 and 1.5 possibly related to volume overload. She has had acute kidney injury episodes previously in August with peak creatinine at 2.3 mg/dL. Patient has significant proteinuria with protein creatinine ratio at 3.4. Etiology is to diabetic kidney disease. Serologies were all negative in August 2021 2. Acute kidney injury associated with anemia. Currently nonoliguric. Blood pressure not low post paracentesis. 3. Chronic lower extremity edema also secondary to underlying CK D with nephrotic range proteinuria as well as pulmonary hypertension and chronic diastolic CHF 4. Anemia rule out GI bleed. Status post packed RBCs transfusion. Rule out iron deficiency. Also component of anemia of chronic disease from CK D 5. Ascites status post paracentesis possibly related to chronic diastolic CHF if it is a transudate. Patient does have a history of uterine cancer cytology is currently pending. 6. UTI status post antibiotics as outpatient. Failed outpatient therapy curr ently maintained on Rocephin. 7. [id number] pericardial effusion noted on echocardiogram, most likely related to overall volume overload. Patient is however maintained on hydralazine and need to rule out pericarditis associated with medications. I will order an antihistone antibody which is associated with pericarditis secondary to medications including hydralazine and minoxidil. Plan: Check iron profile Add Aranesp Resume IV diuretics Maintain salt and fluid restriction Follow-up on results of ascitic fluid Patient will need repeat echocardiogram to follow-up on the pericardial effusion Check antihistone antibody. Thank you for this consultation we'll continue to follow the patient with you during her hospitalization
[2021-12-16 10:15] LABS: HCT 27.2 % (34.0-46.0); HGB 8.3 gm/dL (11.4-16.0); Hypochromasia Marked; MCH 32.4 pg (25.0-35.0); MCHC 30.6 g/dL (31.0-37.0); MCV 105.9 fL (80.0-100.0); Macrocytosis Moderate; Mean Platelet Volume 7.8; Platelet Count 305 k/uL (150-450); RBC 2.57 m/uL (3.80-5.40); RDW 14.7 % (11.5-15.5); WBC 4.8 k/uL (3.8-10.6)
[2021-12-16] MEDS: hydrALAZINE HCL 50 MG TAB PO SCH ×2 (10:17→20:10)
[2021-12-16] MEDS: allopurinoL 100 MG TAB PO SCH (10:18)
[2021-12-16] MEDS: ISOSORBIDE MONONITRATE ER 30 MG TAB.ER.24H PO SCH (10:18)
[2021-12-16] MEDS: FERROUS SULFATE 325 MG TAB PO SCH (10:18)
[2021-12-16] MEDS: APIXABAN 5 MG TAB PO SCH ×2 (10:18→20:10)
[2021-12-16] MEDS: carvediloL 6.25 MG TAB PO SCH ×2 (10:18→20:10)
--- NOTE | 2021-12-16 10:28 | P.PN ---
Subjective No new complaints today. No abdominal pain no chest pain no respiratory complaints. Feeling that she is overall improving. Objective - Vital Signs Vital signs: Vital Signs Temp 98 F 12/16/21 04:00 Pulse 62 12/16/21 04:00 Resp 14 12/16/21 04:00 BP 133/62 12/16/21 04:00 Pulse Ox 94 L 12/16/21 04:00 FiO2 Intake & Output 12/15/21 12/16/21 12/16/21 18:59 06:59 18:59 Intake Total 200 240 Output Total 350 650 Balance -150 -650 240 Weight 104.7 kg 103.5 kg Intake: Oral 200 240 Output: Urine 350 650 Uretheral (Eubanks) 500 Other: Voiding Method Indwelling Catheter Indwelling Catheter - Exam Awake alert oriented 3, no acute distress Head and neck: Anicteric sclera, extraocular movements intact, no facial asymmetry, oropharyngeal mucosa is moist without any lesions, neck is supple without rigidity, no neck masses or neck vein distention Heart: Regular rhythm and rate, S1, S2; no murmurs rubs or gallops Lungs: Breath sounds present bilateral, no wheezing, rhonchi or crackles Abdomen: Abdomen is distended, no fluid wave, Bowel sounds present throughout, abdomen is soft, nontender, no involuntary guarding, no hernias or organomegaly, no flank tenderness Extremities: 2+ peripheral edema, no cyanosis, warm well perfused with palpable dorsalis pedis pulses bilateral and good capillary refill, without joint swelling or deformities - Labs CBC & Chem 7: 12/16/21 09:24 12/15/21 08:15 Labs: Abnormal Lab Results - Last 24 Hours (Table) 12/15/21 12/15/21 12/15/21 Range/Units 11:55 14:29 14:29 RBC (3.80-5.40) m/uL Hgb (11.4-16.0) gm/dL Hct (34.0-46.0) % MCV (80.0-100.0) fL MCHC (31.0-37.0) g/dL POC Glucose (mg/dL) 202 H (70-110) mg/dL Urine Appearance Cloudy H (Clear) Urine Protein 2+ H (Negative) Urine Glucose (UA) Trace H (Negative) Ur Leukocyte Esterase Moderate H (Negative) Urine WBC 8 H (0-5) /hpf Amorphous Sediment Rare H (None) /hpf Urine Bacteria Rare H (None) /hpf Hyaline Casts 18 H (0-2) /lpf Urine Mucus Rare H (None) /hpf U Random Total Protein 141 H (<12) mg/dL 12/15/21 12/15/21 12/16/21 Range/Units 16:46 20:24 06:01 RBC (3.80-5.40) m/uL Hgb (11.4-16.0) gm/dL Hct (34.0-46.0) % MCV (80.0-100.0) fL MCHC (31.0-37.0) g/dL POC Glucose (mg/dL) 193 H 198 H 153 H (70-110) mg/dL Urine Appearance (Clear) Urine Protein (Negative) Urine Glucose (UA) (Negative) Ur Leukocyte Esterase (Negative) Urine WBC (0-5) /hpf Amorphous Sediment (None) /hpf Urine Bacteria (None) /hpf Hyaline Casts (0-2) /lpf Urine Mucus (None) /hpf U Random Total Protein (<12) mg/dL 12/16/21 Range/Units 09:24 RBC 2.57 L (3.80-5.40) m/uL Hgb 8.3 L (11.4-16.0) gm/dL Hct 27.2 L (34.0-46.0) % MCV 105.9 H (80.0-100.0) fL MCHC 30.6 L (31.0-37.0) g/dL POC Glucose (mg/dL) (70-110) mg/dL Urine Appearance (Clear) Urine Protein (Negative) Urine Glucose (UA) (Negative) Ur Leukocyte Esterase (Negative) Urine WBC (0-5) /hpf Amorphous Sediment (None) /hpf Urine Bacteria (None) /hpf Hyaline Casts (0-2) /lpf Urine Mucus (None) /hpf U Random Total Protein (<12) mg/dL Microbiology - Last 24 Hours (Table) 12/10/21 19:10 Blood Culture - Preliminary Blood No Growth after 120 hours 12/10/21 19:20 Blood Culture - Preliminary Blood No Growth after 120 hours Assessment and Plan Assessment: # anasarca and ascites No history of liver cirrhosis History of uterine cancer Status post paracentesis, transudative fluid Continue diuresis Continue to monitor electrolytes and renal function In review of proteinuria, and C daily, nephrology consultation #Chronic kidney disease stage III Significant proteinuria Continue per nephrology recommendation #Acute on chronic diastolic CHF History of follow-up heart disease Cardiology consult, echocardiogram #Perfusion lung scan with high probability of pulmonary embolism Started on Eliquis Pulmonary follow #Urinary tract infection Finished 5 days course of ceftriaxone #Type 2 diabetes mellitus Continue sliding scale insulin Physical occupational therapy Incentive spirometry Plan to be discharged home once more euvolemic
[2021-12-16 10:29] LABS: Magnesium 2.1 mg/dL (1.6-2.3); Potassium 4.3 mmol/L (3.5-5.1)
[2021-12-16] MEDS: FUROSEMIDE 10 MG/ML 4 ML VIAL IV SCH ×2 (10:31→20:10)
[2021-12-16] MEDS ORDERED: DARBEPOETIN ALFA 60 MCG/0.3 ML SYRINGE SQ SCH (11:00)
[2021-12-16] MEDS: FUROSEMIDE 40 MG TAB PO SCH (11:21)
--- NOTE | 2021-12-16 11:39 | P.PN ---
Subjective Progress Note Date: 12/16/21 Patient seen resting comfortably in bed today. She denies shortness of breath or chest pain. Her abdomen remains enlarged, soft, despite status post paracentesis. She remains asymptomatic with mild-moderate pericardial effusion. Nephrology has been consulted and has restarted IV lasix. vital signs remain stable. Objective - Vital Signs Vital signs: Vital Signs Temp 98 F 12/16/21 04:00 Pulse 62 12/16/21 04:00 Resp 14 12/16/21 04:00 BP 133/62 12/16/21 04:00 Pulse Ox 94 L 12/16/21 04:00 FiO2 Intake & Output 12/15/21 12/16/21 12/16/21 18:59 06:59 18:59 Intake Total 200 240 Output Total 350 650 Balance -150 -650 240 Weight 104.7 kg 103.5 kg Intake: Oral 200 240 Output: Urine 350 650 Uretheral (Eubanks) 500 Other: Voiding Method Indwelling Catheter Indwelling Catheter - Exam PHYSICAL EXAM: VITAL SIGNS: Reviewed. GENERAL: Well-developed in no acute distress. HEENT: Head is normocephalic. Pupils are equal, round. Sclerae anicteric. Mucous membranes of the mouth are moist. NECK: Supple. No JVD or thyromegaly RESPIRATORY: Respirations even and unlabored. Lungs diminished to auscultation bilaterally. CARDIO: Regular rate and rhythm. S1 and S2 heard. No murmur or gallops. Abdominal: Abdomen is large, soft and nontender EXTREMITIES: Normal range of motion. No clubbing or cyanosis. Peripheral pulses intact. Negative for bilateral lower extremity edema NEURO: Orientated to person, time, mood is appropriate - Labs CBC & Chem 7: 12/16/21 09:24 12/16/21 09:24 Labs: Abnormal Lab Results - Last 24 Hours (Table) 12/15/21 12/15/21 12/15/21 Range/Units 11:55 14:29 14:29 RBC (3.80-5.40) m/uL Hgb (11.4-16.0) gm/dL Hct (34.0-46.0) % MCV (80.0-100.0) fL MCHC (31.0-37.0) g/dL Chloride (98-107) mmol/L Carbon Dioxide (22-30) mmol/L BUN (7-17) mg/dL Creatinine (0.52-1.04) mg/dL Glucose (74-99) mg/dL POC Glucose (mg/dL) 202 H (70-110) mg/dL Calcium (8.4-10.2) mg/dL Urine Appearance Cloudy H (Clear) Urine Protein 2+ H (Negative) Urine Glucose (UA) Trace H (Negative) Ur Leukocyte Esterase Moderate H (Negative) Urine WBC 8 H (0-5) /hpf Amorphous Sediment Rare H (None) /hpf Urine Bacteria Rare H (None) /hpf Hyaline Casts 18 H (0-2) /lpf Urine Mucus Rare H (None) /hpf U Random Total Protein 141 H (<12) mg/dL 12/15/21 12/15/21 12/16/21 Range/Units 16:46 20:24 06:01 RBC (3.80-5.40) m/uL Hgb (11.4-16.0) gm/dL Hct (34.0-46.0) % MCV (80.0-100.0) fL MCHC (31.0-37.0) g/dL Chloride (98-107) mmol/L Carbon Dioxide (22-30) mmol/L BUN (7-17) mg/dL Creatinine (0.52-1.04) mg/dL Glucose (74-99) mg/dL POC Glucose (mg/dL) 193 H 198 H 153 H (70-110) mg/dL Calcium (8.4-10.2) mg/dL Urine Appearance (Clear) Urine Protein (Negative) Urine Glucose (UA) (Negative) Ur Leukocyte Esterase (Negative) Urine WBC (0-5) /hpf Amorphous Sediment (None) /hpf Urine Bacteria (None) /hpf Hyaline Casts (0-2) /lpf Urine Mucus (None) /hpf U Random Total Protein (<12) mg/dL 12/16/21 12/16/21 Range/Units 09:24 09:24 RBC 2.57 L (3.80-5.40) m/uL Hgb 8.3 L (11.4-16.0) gm/dL Hct 27.2 L (34.0-46.0) % MCV 105.9 H (80.0-100.0) fL MCHC 30.6 L (31.0-37.0) g/dL Chloride 112 H (98-107) mmol/L Carbon Dioxide 20 L (22-30) mmol/L BUN 74 H (7-17) mg/dL Creatinine 1.61 H (0.52-1.04) mg/dL Glucose 140 H (74-99) mg/dL POC Glucose (mg/dL) (70-110) mg/dL Calcium 8.0 L (8.4-10.2) mg/dL Urine Appearance (Clear) Urine Protein (Negative) Urine Glucose (UA) (Negative) Ur Leukocyte Esterase (Negative) Urine WBC (0-5) /hpf Amorphous Sediment (None) /hpf Urine Bacteria (None) /hpf Hyaline Casts (0-2) /lpf Urine Mucus (None) /hpf U Random Total Protein (<12) mg/dL Microbiology - Last 24 Hours (Table) 12/10/21 19:10 Blood Culture - Preliminary Blood No Growth after 120 hours 12/10/21 19:20 Blood Culture - Preliminary Blood No Growth after 120 hours Assessment and Plan Assessment: Acute on chronic diastolic congestive heart failure Acute on chronic anemia, s/p 1 unit RBC transfusion Urinary tract infection High probability of pulmonary embolism, per VQ scan Hypertension Hyperlipidemia Chronic kidney disease History of pericardial effusion History of severe pulmonary hypertension History of uterine cancer Plan: IV Lasix 40 mg twice a day restart per nephrology Continue with Eliquis for anticoagulation Continue with all other current cardiac medications Continue to monitor kidney function. Daily weights. Accurate intake and output. Further recommendations based on clinical course The above impression and plan of care have been discussed and directed by the signing physician. Aurora Trujillo, nurse practitioner, acting as scribe for signing physician.
[2021-12-16 11:40] LABS: Glucose,Whole Blood 197 mg/dL (70-110)
--- NOTE | 2021-12-16 13:01 | P.PN ---
Subjective Progress Note Date: 12/16/21 Principal diagnosis: Ascites The patient is seen and examined as a follow-up for new onset ascites. The past medical history of uterine cancer with radiation therapy, chronic anemia, hypertension and chronic renal disease. She underwent paracentesis with 4 L of fluid removed. Fluid studies and SAAG score not consistent with portal hypertension. Hepatitis panel nonreactive. LFTs remain within normal limits. She denies any abdominal pain, nausea or vomiting. Fluid cytology is currently pending. Nephrology following patient for chronic kidney disease with acute kidney injury associated with anemia. Patient is now on fluid restriction. She denies any abdominal pain, nausea or vomiting. Objective - Vital Signs Vital signs: Vital Signs Temp 98 F 12/16/21 04:00 Pulse 62 12/16/21 04:00 Resp 14 12/16/21 04:00 BP 133/62 12/16/21 04:00 Pulse Ox 94 L 12/16/21 04:00 FiO2 Intake & Output 12/15/21 12/16/21 12/16/21 18:59 06:59 18:59 Intake Total 200 Output Total 350 650 Balance -150 -650 Weight 104.7 kg 103.5 kg Intake: Oral 200 Output: Urine 350 650 Uretheral (Eubanks) 500 Other: Voiding Method Indwelling Catheter Indwelling Catheter - Exam General appearance: The patient is alert, oriented, appears in no acute distress. HET: Head is normocephalic and atraumatic. Conjunctiva pink. Sclera anicteric. Neck: Supple without lymphadenopathy. Abdomen: Soft, nontender to palpation, nondistended. No guarding or rigidity. Extremities: Normal skin color and turgor. Bilateral pitting edema. Skin: No rashes, no jaundice Neurological: No focal deficits. Alert and oriented x 3. - Labs CBC & Chem 7: 12/16/21 09:24 12/16/21 09:24 Labs: Abnormal Lab Results - Last 24 Hours (Table) 12/15/21 12/15/21 12/15/21 Range/Units 08:15 08:15 11:55 RBC 2.44 L (3.80-5.40) m/uL Hgb 7.7 L (11.4-16.0) gm/dL Hct 25.9 L (34.0-46.0) % MCV 106.1 H (80.0-100.0) fL MCHC 29.7 L (31.0-37.0) g/dL Lymphocytes # 0.5 L (1.0-4.8) k/uL Chloride 113 H (98-107) mmol/L Carbon Dioxide 20 L (22-30) mmol/L BUN 75 H (7-17) mg/dL Creatinine 1.68 H (0.52-1.04) mg/dL Glucose 102 H (74-99) mg/dL POC Glucose (mg/dL) 202 H (70-110) mg/dL Calcium 7.9 L (8.4-10.2) mg/dL Urine Appearance (Clear) Urine Protein (Negative) Urine Glucose (UA) (Negative) Ur Leukocyte Esterase (Negative) Urine WBC (0-5) /hpf Amorphous Sediment (None) /hpf Urine Bacteria (None) /hpf Hyaline Casts (0-2) /lpf Urine Mucus (None) /hpf U Random Total Protein (<12) mg/dL 12/15/21 12/15/21 12/15/21 Range/Units 14:29 14:29 16:46 RBC (3.80-5.40) m/uL Hgb (11.4-16.0) gm/dL Hct (34.0-46.0) % MCV (80.0-100.0) fL MCHC (31.0-37.0) g/dL Lymphocytes # (1.0-4.8) k/uL Chloride (98-107) mmol/L Carbon Dioxide (22-30) mmol/L BUN (7-17) mg/dL Creatinine (0.52-1.04) mg/dL Glucose (74-99) mg/dL POC Glucose (mg/dL) 193 H (70-110) mg/dL Calcium (8.4-10.2) mg/dL Urine Appearance Cloudy H (Clear) Urine Protein 2+ H (Negative) Urine Glucose (UA) Trace H (Negative) Ur Leukocyte Esterase Moderate H (Negative) Urine WBC 8 H (0-5) /hpf Amorphous Sediment Rare H (None) /hpf Urine Bacteria Rare H (None) /hpf Hyaline Casts 18 H (0-2) /lpf Urine Mucus Rare H (None) /hpf U Random Total Protein 141 H (<12) mg/dL 12/15/21 12/16/21 Range/Units 20:24 06:01 RBC (3.80-5.40) m/uL Hgb (11.4-16.0) gm/dL Hct (34.0-46.0) % MCV (80.0-100.0) fL MCHC (31.0-37.0) g/dL Lymphocytes # (1.0-4.8) k/uL Chloride (98-107) mmol/L Carbon Dioxide (22-30) mmol/L BUN (7-17) mg/dL Creatinine (0.52-1.04) mg/dL Glucose (74-99) mg/dL POC Glucose (mg/dL) 198 H 153 H (70-110) mg/dL Calcium (8.4-10.2) mg/dL Urine Appearance (Clear) Urine Protein (Negative) Urine Glucose (UA) (Negative) Ur Leukocyte Esterase (Negative) Urine WBC (0-5) /hpf Amorphous Sediment (None) /hpf Urine Bacteria (None) /hpf Hyaline Casts (0-2) /lpf Urine Mucus (None) /hpf U Random Total Protein (<12) mg/dL Microbiology - Last 24 Hours (Table) 12/10/21 19:10 Blood Culture - Preliminary Blood No Growth after 120 hours 12/10/21 19:20 Blood Culture - Preliminary Blood No Growth after 120 hours Assessment and Plan (1) Ascites Narrative/Plan: 66-year-old female with past medical history of uterine cancer status post radiation therapy approximately 1 year ago, type 2 diabetes mellitus, anemia of chronic disease, hypertension, chronic renal disease and hyperlipidemia. On admission she was noted to have elevated d-dimer, she was anemic. She received started on IV heparin drip for pulmonary embolism found on VQ scan. She had a CT of the abdomen that showed abdominal ascites, she had a follow-up abdominal ultrasound showing moderate ascites. She has no previous history of reported liver disease, no history of alcoholism, and no history of hepatitis that she is aware of. Started noticing some distention and weight gain over the last 2-3 weeks duration. She is scheduled today for paracentesis. Unknown etiology at this time. We will order fluid studies. Paracentesis completed with 4 L of yellow fluid removed. Fluid studies, SAAG not consistent with portal hypertension. . Unclear etiology at this time may be related to underlying chronic diastolic heart failure, however to need to rule out underlying malignancy as patient does have a history of uterine cancer. Cytology still pending. Consult placed to nephrology for underlying chronic kidney disease, diuretic management. Current Visit: Yes Status: Acute Code(s): R18.8 - OTHER ASCITES SNOMED Code(s): 348731879 (2) Chronic anemia Current Visit: Yes Status: Acute Code(s): D64.9 - ANEMIA, UNSPECIFIED SNOMED Code(s): 646794947 (3) Chronic kidney disease Narrative/Plan: Nephrology consulted Current Visit: Yes Status: Acute Code(s): N18.9 - CHRONIC KIDNEY DISEASE, UNSPECIFIED SNOMED Code(s): 930566418 (4) Heart failure Current Visit: Yes Status: Acute Code(s): I50.9 - HEART FAILURE, UNSPECIFIED SNOMED Code(s): 25283328 Plan: 1. Continue symptomatic and supportive care 2. Continue Lasix 40 mg twice a day 3. Status post paracentesis and fluid studies. Ascitic fluid cytology pending 4. Nephrology consulted for chronic kidney disease, further management of diuretics 5. Low-sodium, renal diet 6. Dietitian consulted to discuss renal/low-sodium diet per patient request 7. Patient can follow-up with gastroenterology as needed for ascites Thank you for allowing us to participate in the care of the patient, the GI service will sign off, gastroenterology will not be available at the hospital this weekend and through next week. If further evaluation by gastroenterology is required the patient will need transfer as per the primary team's discretion. Dr. Darion Johnson I agree with the dictator's note, documented as a scribe by Rosa Gunn.
[2021-12-16 17:03] LABS: Glucose,Whole Blood 244 mg/dL (70-110)
[2021-12-16 18:38] LABS: % Iron Saturation 17.31 (12.00-45.00)
[2021-12-16 20:19] LABS: Glucose,Whole Blood 205 mg/dL (70-110)
[2021-12-16] MEDS: DOCUSATE 100 MG CAP PO PRN (22:08)
[2021-12-17] MEDS: MORPHINE SULFATE 4 MG/ML SYRINGE IV PRN ×2 (00:15→04:15)
[2021-12-17 06:41] LABS: Glucose,Whole Blood 164 mg/dL (70-110)
[2021-12-17] MEDS: INSULIN ASPART (NovoLOG) 100 UNIT/ML VIAL SQ SCH ×4 (06:44→21:41)
[2021-12-17] MEDS: FUROSEMIDE 10 MG/ML 4 ML VIAL IV SCH ×2 (08:36→20:12)
[2021-12-17] MEDS: carvediloL 6.25 MG TAB PO SCH ×2 (08:36→20:12)
[2021-12-17] MEDS: hydrALAZINE HCL 50 MG TAB PO SCH ×2 (08:37→20:13)
[2021-12-17] MEDS: ISOSORBIDE MONONITRATE ER 30 MG TAB.ER.24H PO SCH (08:37)
[2021-12-17] MEDS: APIXABAN 5 MG TAB PO SCH ×2 (08:37→20:12)
[2021-12-17] MEDS: allopurinoL 100 MG TAB PO SCH (08:37)
[2021-12-17 09:11] LABS: HCT 28.5 % (34.0-46.0); HGB 8.7 gm/dL (11.4-16.0); Hypochromasia Marked; MCH 32.7 pg (25.0-35.0); MCHC 30.6 g/dL (31.0-37.0); MCV 106.7 fL (80.0-100.0); Macrocytosis Moderate; Mean Platelet Volume 8.4; Platelet Count 362 k/uL (150-450); RBC 2.67 m/uL (3.80-5.40); RDW 15.2 % (11.5-15.5); WBC 4.7 k/uL (3.8-10.6)
[2021-12-17 09:29] LABS: Potassium 4.4 mmol/L (3.5-5.1)
[2021-12-17 11:35] LABS: Glucose,Whole Blood 208 mg/dL (70-110)
--- NOTE | 2021-12-17 12:28 | P.OBCN ---
History of Present Illness Consult date: 12/17/21 Reason for consult: other (Postmenopausal bleeding with known diagnosis of endometrial cancer) History of present illness: The patient is a 66-year-old 0 para 0 who I saw last fall in March for postmenopausal bleeding in the hospital at which time she was not having any significant bleeding was hospitalized for other secondary medical concerns. She was brought to the office shortly after discharge at which time I performed an endometrial biopsy which demonstrated a poorly differentiated endometrial adenocarcinoma. She was subsequently referred to [facility] where she underwent external beam radiation but could not undergo surgical staging or further treatments secondary to chronic medical conditions. She has been readm itted to the hospital here approximately 1 week ago with findings of anasarca as well as a significant amount of peritoneal ascites. She has undergone paracentesis to relieve some of the discomfort. Evaluation of the cells suggested the possibility of malignant ascites but was not diagnostic. She has been also aggressively treated with diuretics for anasarca and carries a diagnosis of congestive heart failure as well as chronic renal failure. She additionally has been diagnosed with what is thought to be a PE and has been started on anticoagulation with Eliquis. Consultation was called for me as the patient has not reported she is having a small amount of vaginal bleeding on an irregular basis over the last several days. She did have an indwelling catheter in place as she is also been diagnosed with a urinary tract infection. She feels that the bleeding may even have been secondary to some pulling on the Eubanks catheter with the bulb inflated. She has not had any recent visits with [facility]. Obstetrical history: 0 para 0 Gynecologic history: Confined to history of present illness. Review of Systems Review of systems is confined to history of present illness. Past Medical History Past Medical History: Cancer, Diabetes Mellitus, Hypertension, Renal Disease Additional Past Medical History / Comment(s): fall 2 year ago, now walks with cane History of Any Multi-Drug Resistant Organisms: None Reported Past Surgical History: No Surgical Hx Reported Past Anesthesia/Blood Transfusion Reactions: No Reported Reaction Past Psychological History: Depression Smoking Status: Never smoker Past Alcohol Use History: None Reported Past Drug Use History: None Reported - Past Family History Father Family Medical History: Myocardial Infarction (ME) Additional Family Medical History / Comment(s): father of ME at 58 years old Mother Additional Family Medical History / Comment(s): mother of old age at 95 years old Medications and Allergies Home Medications Medication Instructions Recorded Confirmed Type allopurinoL [Zyloprim] 100 mg PO DAILY 12/16/20 12/10/21 History Linagliptin [Tradjenta] 5 mg PO DAILY 08/02/21 12/10/21 History Isosorbide Mononitrate ER [Imdur] 30 mg PO DAILY tablet 08/09/21 12/10/21 Rx Ferrous Sulfate [Iron (65 MG 325 mg PO Q48H 10/11/21 12/10/21 History Elemental)] Furosemide [Lasix] 40 mg PO TID 12/10/21 12/10/21 History Insulin Lispro [humaLOG Kwikpen] See Protocol SQ ACHS 12/10/21 12/10/21 History Nitrofurantoin Monohyd/M-Cryst 100 mg PO BID 12/10/21 12/10/21 History [Macrobid] carvediloL [Coreg] 6.25 mg PO BID 12/10/21 12/10/21 History hydrALAZINE HCL [Apresoline] 50 mg PO BID 12/10/21 12/10/21 History sitaGLIPtin [Januvia] 50 mg PO DAILY 12/10/21 12/10/21 History Allergies Allergy/AdvReac Type Severity Reaction Status Date / Time No Known Allergies Allergy Verified 12/10/21 19:18 Exam Vital Signs Temp Pulse Resp BP Pulse Ox 12/17/21 08:00 98.0 F 67 16 167/67 93 L 12/17/21 04:00 97.6 F 60 16 143/65 94 L 12/17/21 01:58 18 12/17/21 00:00 98 F 60 18 130/51 94 L 12/16/21 20:06 98.2 F 66 18 149/69 95 12/16/21 20:00 66 18 12/16/21 16:00 97.7 F 64 150/66 93 L 12/16/21 14:00 61 16 Intake and Output 12/16/21 12/17/21 12/17/21 22:59 06:59 14:59 Intake Total 240 320 Output Total 150 550 Balance 90 -230 Intake: Oral 240 320 Output: Urine 150 550 Other: Voiding Method Bedside Commode External Catheter Weight 101 kg In general, this is a moderately obese white female in no acute distress. Cardiac and lung exams are deferred medical doctors. Her abdomen is distended, soft, with some evidence of fluid wave. Pelvic examination is confined to bimanual examination at which time I am barely able to reach her cervix but the cervix feels entirely normal. I do not appreciate the uterine fundus secondary to her ascites and abdominal habitus. There is no obvious palpable mass or tumor present on pelvic examination. Results Result Diagrams: 12/17/21 08:54 12/17/21 08:54 Abnormal Lab Results - Last 24 Hours (Table) 12/16/21 12/16/21 12/16/21 Range/Units 09:24 16:43 20:17 RBC (3.80-5.40) m/uL Hgb (11.4-16.0) gm/dL Hct (34.0-46.0) % MCV (80.0-100.0) fL MCHC (31.0-37.0) g/dL Chloride (98-107) mmol/L BUN (7-17) mg/dL Creatinine (0.52-1.04) mg/dL Glucose (74-99) mg/dL POC Glucose (mg/dL) 244 H 205 H (70-110) mg/dL Calcium (8.4-10.2) mg/dL Iron 37 L (50-170) ug/dL TIBC 211 L (228-460) ug/dL Transferrin 151.0 L (204.0-354.0) mg/dL 12/17/21 12/17/21 12/17/21 Range/Units 06:39 08:54 08:54 RBC 2.67 L (3.80-5.40) m/uL Hgb 8.7 L (11.4-16.0) gm/dL Hct 28.5 L (34.0-46.0) % MCV 106.7 H (80.0-100.0) fL MCHC 30.6 L (31.0-37.0) g/dL Chloride 112 H (98-107) mmol/L BUN 71 H (7-17) mg/dL Creatinine 1.70 H (0.52-1.04) mg/dL Glucose 137 H (74-99) mg/dL POC Glucose (mg/dL) 164 H (70-110) mg/dL Calcium 8.0 L (8.4-10.2) mg/dL Iron (50-170) ug/dL TIBC (228-460) ug/dL Transferrin (204.0-354.0) mg/dL 12/17/21 Range/Units 11:33 RBC (3.80-5.40) m/uL Hgb (11.4-16.0) gm/dL Hct (34.0-46.0) % MCV (80.0-100.0) fL MCHC (31.0-37.0) g/dL Chloride (98-107) mmol/L BUN (7-17) mg/dL Creatinine (0.52-1.04) mg/dL Glucose (74-99) mg/dL POC Glucose (mg/dL) 208 H (70-110) mg/dL Calcium (8.4-10.2) mg/dL Iron (50-170) ug/dL TIBC (228-460) ug/dL Transferrin (204.0-354.0) mg/dL Microbiology - Last 24 Hours (Table) 12/10/21 19:10 Blood Culture - Final Blood No Growth after 144 hours 12/10/21 19:20 Blood Culture - Final Blood No Growth after 144 hours Assessment and Plan (1) Ascites Current Visit: Yes Status: Acute Code(s): R18.8 - OTHER ASCITES SNOMED Code(s): 289087679 (2) Chronic kidney disease Current Visit: Yes Status: Acute Code(s): N18.9 - CHRONIC KIDNEY DISEASE, UNSPECIFIED SNOMED Code(s): 417469982 (3) Heart failure Current Visit: Yes Status: Acute Code(s): I50.9 - HEART FAILURE, UNSPECIFIED SNOMED Code(s): 82984399 Plan: The patient has a known diagnosis of poorly differentiated endometrial adenocarcinoma which is been treated only with external beam radiation. She has not been healthy enough to undergo surgical staging to this point. It is possible that the abdominal ascites is malignant in nature though the testing that I have seen on the chart is inconclusive. As regards the postmenopausal bleeding, I highly suspect this is secondary to initiation of anticoagulation and may continue to be problematic so long that she is anticoagulated. This is a very common problem for postmenopausal women who are obese and particularly carry a diagnosis of a pre-existing endometrial cancer. As the bleeding is not problematic, it should be followed up as an outpatient and further outpatient follow-up should be directed towards [facility] as she has no established relationship and benign gynecology has little to add at this point. I have explained to the patient my suspicions that the ascites could be related to the tumor but could also be secondary to congestive heart failure and acute renal disease which led to the anasarca. I have reassured her that there is no intervention that I can offer her at this time and will otherwise sign off of the chart. I believe the patient has a full understanding of her gynecologic situation and plan for follow-up with [facility] in the [facility].
--- NOTE | 2021-12-17 13:45 | P.PN ---
Subjective Patient is seen for follow-up for acute kidney injury on top of chronic kidney disease. [place] patient has CK D NKF stage IV to IIIB with previous creatinine about 1.6 in August 2021. Etiology is diabetic kidney disease. Patient also has a history of diastolic CHF and pulmonary hypertension with chronic lower extremity edema. Patient was admitted to the hospital with symptoms of dysuria and failed outpatient treatment for UTI. She is currently being diuresed. Patient was also anemic with a hemoglobin of 6.9. She has been transfused packe d RBCs. Status post paracentesis on 6:15 with 4 L of fluid removed. Serum creatinine staying at about 1.6-1.7 mg/dL. Objective - Vital Signs Vital signs: Vital Signs Temp 98.0 F 12/17/21 08:00 Pulse 67 12/17/21 08:00 Resp 16 12/17/21 08:00 BP 167/67 12/17/21 08:00 Pulse Ox 93 L 12/17/21 08:00 FiO2 Intake & Output 12/16/21 12/17/21 12/17/21 18:59 06:59 18:59 Intake Total 1192 320 Output Total 775 550 Balance 417 -230 Weight 101 kg Intake: Oral 1192 320 Output: Urine 775 550 Other: Voiding Method Indwelling Catheter Bedside Commode External Catheter - Exam Awake, comfortable, not in any acute distress Examination of the heart S1 and S2 Examination lungs bilateral breath sounds are heard Abdomen is soft distended nontender, site is noted Examination lower extremity shows 2+ edema bilaterally [employer] INST[employer]ER exam grossly intact - Labs CBC & Chem 7: 12/17/21 08:54 12/17/21 08:54 Labs: Abnormal Lab Results - Last 24 Hours (Table) 12/16/21 12/16/21 12/16/21 Range/Units 09:24 16:43 20:17 RBC (3.80-5.40) m/uL Hgb (11.4-16.0) gm/dL Hct (34.0-46.0) % MCV (80.0-100.0) fL MCHC (31.0-37.0) g/dL Chloride (98-107) mmol/L BUN (7-17) mg/dL Creatinine (0.52-1.04) mg/dL Glucose (74-99) mg/dL POC Glucose (mg/dL) 244 H 205 H (70-110) mg/dL Calcium (8.4-10.2) mg/dL Iron 37 L (50-170) ug/dL TIBC 211 L (228-460) ug/dL Transferrin 151.0 L (204.0-354.0) mg/dL 12/17/21 12/17/21 12/17/21 Range/Units 06:39 08:54 08:54 RBC 2.67 L (3.80-5.40) m/uL Hgb 8.7 L (11.4-16.0) gm/dL Hct 28.5 L (34.0-46.0) % MCV 106.7 H (80.0-100.0) fL MCHC 30.6 L (31.0-37.0) g/dL Chloride 112 H (98-107) mmol/L BUN 71 H (7-17) mg/dL Creatinine 1.70 H (0.52-1.04) mg/dL Glucose 137 H (74-99) mg/dL POC Glucose (mg/dL) 164 H (70-110) mg/dL Calcium 8.0 L (8.4-10.2) mg/dL Iron (50-170) ug/dL TIBC (228-460) ug/dL Transferrin (204.0-354.0) mg/dL 12/17/21 Range/Units 11:33 RBC (3.80-5.40) m/uL Hgb (11.4-16.0) gm/dL Hct (34.0-46.0) % MCV (80.0-100.0) fL MCHC (31.0-37.0) g/dL Chloride (98-107) mmol/L BUN (7-17) mg/dL Creatinine (0.52-1.04) mg/dL Glucose (74-99) mg/dL POC Glucose (mg/dL) 208 H (70-110) mg/dL Calcium (8.4-10.2) mg/dL Iron (50-170) ug/dL TIBC (228-460) ug/dL Transferrin (204.0-354.0) mg/dL Microbiology - Last 24 Hours (Table) 12/10/21 19:10 Blood Culture - Final Blood No Growth after 144 hours 06/11/22 19:20 Blood Culture - Final Blood No Growth after 144 hours Assessment and Plan Assessment: 1. Chronic kidney disease NKF stage IV to IIIB with baseline creatinine around 1.6 mg/dL etiology is diabetic kidney disease. Patient's serum creatinine was down to around 1.48 and 1.5 possibly related to volume overload. She has had acute kidney injury episodes previously in August with peak creatinine at 2.3 mg/dL. Patient has significant proteinuria with protein creatinine ratio at 3.4. Etiology is to diabetic kidney disease. Serologies were all negative in August 2021 2. Acute kidney injury associated with anemia. Currently nonoliguric. Blood pressure not low post paracentesis. 3. Chronic lower extremity edema also secondary to underlying CK D with nephrotic range proteinuria as well as pulmonary hypertension and chronic diastolic CHF 4. Anemia rule out GI bleed. Status post packed RBCs transfusion. Rule out iron deficiency. Also component of anemia of chronic disease from CK D 5. Ascites status post paracentesis possibly related to chronic diastolic CHF if it is a transudate. Patient does have a history of uterine cancer cytology is currently pending. 6. UTI status post antibiotics as outpatient. Failed outpatient therapy currently maintained on Rocephin. 7. [id number] pericardial effusion noted on echocardiogram, most likely related to overall volume overload. Patient is however maintained on hydralazine and need to rule out pericarditis associated with medications. I will order an antihistone antibody which is associated with pericarditis secondary to medications including hydralazine and minoxidil. Plan: Check iron profile Continue Aranesp Continue IV diuretics Maintain salt and fluid restriction Follow-up on results of ascitic fluid Patient will need repeat echocardiogram to follow-up on the pericardial effusion Check antihistone antibody.
--- NOTE | 2021-12-17 15:39 | P.PN ---
Subjective Progress Note Date: 12/17/21 Principal diagnosis: ascites Patient had an episode of vaginal bleeding this morning. Small amount of blood came out. Patient denied having any abdominal pain, nausea or vomiting. No chest pain or shortness of breath. Objective - Vital Signs Vital signs: Vital Signs Temp 98.2 F 12/17/21 12:00 Pulse 63 12/17/21 14:00 Resp 18 12/17/21 14:00 BP 149/69 12/17/21 12:00 Pulse Ox 93 L 12/17/21 12:00 FiO2 Intake & Output 12/16/21 12/17/21 12/17/21 18:59 06:59 18:59 Intake Total 1192 320 Output Total 775 550 400 Balance 417 -230 -400 Weight 101 kg Intake: Oral 1192 320 Output: Urine 775 550 400 Other: Voiding Method Indwelling Catheter Bedside Commode External Catheter - Exam Constitutional: No acute distress, conversant, pleasant Eyes:Anicteric sclerae, moist conjunctiva, no lid-lag, PERRLA, ENMT: Oropharynx clear, no erythema, exudates Neck: Supple, FROM, no masses, or JVD, No carotid bruits, No thyromegaly Lungs: Clear to auscultation, Clear to percussion, Normal respiratory effort, no accessory muscle use Cardiovascular: Heart regular in rate and rhythm, No murmurs, gallops, or rubs, 2+ peripheral edema Abdominal: Distended but Soft, Nontender, no guarding, rebound or rigidity, Normoactive bowel sounds, No hepatomegaly, No splenomegaly, No palpable mass Skin: Normal temperature, tone, texture, turgor, no induration, No subcutaneous nodules, No rash, lesions, No ulcers Extremities: No digital cyanosis, No clubbing, Pedal pulses intact and symmetrical, Radial pulses intact and symmetrical, No calf tenderness Psychiatric: Alert and oriented to person, place and time, appropriate affect, intact judgement Neuro: Muscles Strength 5/5 in all 4 extremities, Sensation to light touch grossly present throughout, Cranial nerves II-XII grossly intact, no focal sensory deficits - Labs CBC & Chem 7: 12/17/21 08:54 12/17/21 08:54 Labs: Abnormal Lab Results - Last 24 Hours (Table) 12/16/21 12/16/21 12/16/21 Range/Units 09:24 16:43 20:17 RBC (3.80-5.40) m/uL Hgb (11.4-16.0) gm/dL Hct (34.0-46.0) % MCV (80.0-100.0) fL MCHC (31.0-37.0) g/dL Chloride (98-107) mmol/L BUN (7-17) mg/dL Creatinine (0.52-1.04) mg/dL Glucose (74-99) mg/dL POC Glucose (mg/dL) 244 H 205 H (70-110) mg/dL Calcium (8.4-10.2) mg/dL Iron 37 L (50-170) ug/dL TIBC 211 L (228-460) ug/dL Transferrin 151.0 L (204.0-354.0) mg/dL 12/17/21 12/17/21 12/17/21 Range/Units 06:39 08:54 08:54 RBC 2.67 L (3.80-5.40) m/uL Hgb 8.7 L (11.4-16.0) gm/dL Hct 28.5 L (34.0-46.0) % MCV 106.7 H (80.0-100.0) fL MCHC 30.6 L (31.0-37.0) g/dL Chloride 112 H (98-107) mmol/L BUN 71 H (7-17) mg/dL Creatinine 1.70 H (0.52-1.04) mg/dL Glucose 137 H (74-99) mg/dL POC Glucose (mg/dL) 164 H (70-110) mg/dL Calcium 8.0 L (8.4-10.2) mg/dL Iron (50-170) ug/dL TIBC (228-460) ug/dL Transferrin (204.0-354.0) mg/dL 12/17/21 Range/Units 11:33 RBC (3.80-5.40) m/uL Hgb (11.4-16.0) gm/dL Hct (34.0-46.0) % MCV (80.0-100.0) fL MCHC (31.0-37.0) g/dL Chloride (98-107) mmol/L BUN (7-17) mg/dL Creatinine (0.52-1.04) mg/dL Glucose (74-99) mg/dL POC Glucose (mg/dL) 208 H (70-110) mg/dL Calcium (8.4-10.2) mg/dL Iron (50-170) ug/dL TIBC (228-460) ug/dL Transferrin (204.0-354.0) mg/dL Microbiology - Last 24 Hours (Table) 12/10/21 19:10 Blood Culture - Final Blood No Growth after 144 hours 12/10/21 19:20 Blood Culture - Final Blood No Growth after 144 hours Assessment and Plan Plan: # anasarca and ascites No history of liver cirrhosis History of uterine cancer Status post paracentesis, transudative fluid, not consistent with portal hypertension Continue diuresis Continue to monitor electrolytes and renal function # Vaginal postmenopausal bleeding Patient seen by [employer] HELPER on 12/17 Bleeding could be secondary to endometrial cancer, in light of anticoagulation treatment referred for outpatient follow-up #Chronic kidney disease stage III Significant proteinuria Continue per nephrology recommendation #Acute on chronic diastolic CHF History of follow-up heart disease Cardiology consulted, echocardiogram with normal EF Diuresis as above #Pericardial effusion Could be secondary to a general anasarca Antihistone antibody ordered to rule out drug-induced pericarditis caused by hy dralazine versus minoxidil #Perfusion lung scan with high probability of pulmonary embolism Started on Eliquis Pulmonary follow #Urinary tract infection Finished 5 days course of ceftriaxone #Type 2 diabetes mellitus Continue sliding scale insulin Physical occupational therapy Incentive spirometry Plan to be discharged home once more euvolemic
[2021-12-17 16:33] LABS: Glucose,Whole Blood 223 mg/dL (70-110)
[2021-12-17] MEDS: HYDROcodone/APAP 5-325MG 1 EACH TAB PO PRN (20:13)
[2021-12-17] MEDS: DOCUSATE 100 MG CAP PO PRN (20:13)
[2021-12-17 20:38] LABS: Glucose,Whole Blood 182 mg/dL (70-110)
[2021-12-17 22:18] LABS: Total Volume 24 Hour,Urine 1100 mls (250-2400)
[2021-12-17 22:53] LABS: Creatinine 24 Hour,Urine 558.8 mg/24hr (800.0-1800.0); Total Protein 24 Hour,Urine 1716 mg/24hr (42.0-225.0)
[2021-12-18] MEDS: HYDROcodone/APAP 5-325MG 1 EACH TAB PO PRN ×2 (02:58→20:27)
[2021-12-18 04:52] LABS: Basophils % (A) 1 %; Eosinophils # (A) 0.2 k/uL (0-0.7); Eosinophils % (A) 3 %; HCT 25.9 % (34.0-46.0); HGB 7.8 gm/dL (11.4-16.0); Hypochromasia Marked; Lymphocytes # (A) 0.6 k/uL (1.0-4.8); Lymphocytes % (A) 11 %; MCH 31.6 pg (25.0-35.0); MCHC 29.9 g/dL (31.0-37.0); MCV 105.5 fL (80.0-100.0); Macrocytosis Moderate; Mean Platelet Volume 8.3; Monocytes # (A) 0.3 k/uL (0-1.0); Monocytes % (A) 6 %; Neutrophils # (A) 4.1 k/uL (1.3-7.7); Neutrophils % (A) 78 %; Platelet Count 280 k/uL (150-450); RBC 2.46 m/uL (3.80-5.40); RDW 14.4 % (11.5-15.5); WBC 5.2 k/uL (3.8-10.6)
[2021-12-18 04:58] LABS: Albumin 2.2 g/dL (3.5-5.0); Calcium 7.5 mg/dL (8.4-10.2); Potassium 4.5 mmol/L (3.5-5.1); Total Bilirubin 0.1 mg/dL (0.2-1.3); Total Protein 4.8 g/dL (6.3-8.2)
[2021-12-18 06:25] LABS: Glucose,Whole Blood 164 mg/dL (70-110)
[2021-12-18] MEDS: INSULIN ASPART (NovoLOG) 100 UNIT/ML VIAL SQ SCH ×4 (06:31→20:28)
--- NOTE | 2021-12-18 08:44 | P.PN ---
Subjective Progress Note Date: 12/17/21 Patient remains resting comfortably in bed. She remains free from chest pain or shortness of breath. Her abdomen is soft, large, nontender still awaiting cytology from fluid removed during paracentesis. Vital signs remained stable. She remains asymptomatic with mild-moderate pericardial effusion. Nephrology has been consulted and has restarted IV lasix. vital signs remain stable. Kidney function is still elevated BUN is 71 creatinine is 1.7, anemia continues to improve at hemoglobin is 8.7 today Objective - Vital Signs Vital signs: Vital Signs Temp 98.0 F 12/17/21 08:00 Pulse 67 12/17/21 08:00 Resp 16 12/17/21 08:00 BP 167/67 12/17/21 08:00 Pulse Ox 93 L 12/17/21 08:00 FiO2 Intake & Output 12/16/21 12/17/21 12/17/21 18:59 06:59 18:59 Intake Total 1192 320 Output Total 775 550 Balance 417 -230 Weight 101 kg Intake: Oral 1192 320 Output: Urine 775 550 Other: Voiding Method Indwelling Catheter Bedside Commode External Catheter - Exam PHYSICAL EXAM: VITAL SIGNS: Reviewed. GENERAL: Well-developed in no acute distress. HEENT: Head is normocephalic. Pupils are equal, round. Sclerae anicteric. Mucous membranes of the mouth are moist. NECK: Supple. No JVD or thyromegaly RESPIRATORY: Respirations even and unlabored. Lungs diminished to auscultation bilaterally. CARDIO: Regular rate and rhythm. S1 and S2 heard. No murmur or gallops. Abdominal: Abdomen is large, soft and nontender EXTREMITIES: Normal range of motion. No clubbing or cyanosis. Peripheral pulses intact. Negative for bilateral lower extremity edema NEURO: Orientated to person, time, mood is appropriate - Labs CBC & Chem 7: 12/17/21 08:54 12/17/21 08:54 Labs: Abnormal Lab Results - Last 24 Hours (Table) 12/16/21 12/16/21 12/16/21 Range/Units 09:24 16:43 20:17 RBC (3.80-5.40) m/uL Hgb (11.4-16.0) gm/dL Hct (34.0-46.0) % MCV (80.0-100.0) fL MCHC (31.0-37.0) g/dL Chloride (98-107) mmol/L BUN (7-17) mg/dL Creatinine (0.52-1.04) mg/dL Glucose (74-99) mg/dL POC Glucose (mg/dL) 244 H 205 H (70-110) mg/dL Calcium (8.4-10.2) mg/dL Iron 37 L (50-170) ug/dL TIBC 211 L (228-460) ug/dL Transferrin 151.0 L (204.0-354.0) mg/dL 12/17/21 12/17/21 12/17/21 Range/Units 06:39 08:54 08:54 RBC 2.67 L (3.80-5.40) m/uL Hgb 8.7 L (11.4-16.0) gm/dL Hct 28.5 L (34.0-46.0) % MCV 106.7 H (80.0-100.0) fL MCHC 30.6 L (31.0-37.0) g/dL Chloride 112 H (98-107) mmol/L BUN 71 H (7-17) mg/dL Creatinine 1.70 H (0.52-1.04) mg/dL Glucose 137 H (74-99) mg/dL POC Glucose (mg/dL) 164 H (70-110) mg/dL Calcium 8.0 L (8.4-10.2) mg/dL Iron (50-170) ug/dL TIBC (228-460) ug/dL Transferrin (204.0-354.0) mg/dL 12/17/21 Range/Units 11:33 RBC (3.80-5.40) m/uL Hgb (11.4-16.0) gm/dL Hct (34.0-46.0) % MCV (80.0-100.0) fL MCHC (31.0-37.0) g/dL Chloride (98-107) mmol/L BUN (7-17) mg/dL Creatinine (0.52-1.04) mg/dL Glucose (74-99) mg/dL POC Glucose (mg/dL) 208 H (70-110) mg/dL Calcium (8.4-10.2) mg/dL Iron (50-170) ug/dL TIBC (228-460) ug/dL Transferrin (204.0-354.0) mg/dL Microbiology - Last 24 Hours (Table) 12/10/21 19:10 Blood Culture - Final Blood No Growth after 144 hours 12/10/21 19:20 Blood Culture - Final Blood No Growth after 144 hours Assessment and Plan Assessment: Acute on chronic diastolic congestive heart failure Acute on chronic anemia, s/p 1 unit RBC transfusion Urinary tract infection High probability of pulmonary embolism, per VQ scan Hypertension Hyperlipidemia Chronic kidney disease History of pericardial effusion History of severe pulmonary hypertension History of uterine cancer Plan: Continue IV Lasix 40 mg twice a day per nephrology Continue with Eliquis for anticoagulation Continue with all other current cardiac medications Continue to monitor kidney function. Daily weights. Accurate intake and output. Further recommendations based on clinical course The above impression and plan of care have been discussed and directed by the signing physician. Aurora Trujillo, nurse practitioner, acting as scribe for signing physician.
[2021-12-18] MEDS: ISOSORBIDE MONONITRATE ER 30 MG TAB.ER.24H PO SCH (09:20)
[2021-12-18] MEDS: hydrALAZINE HCL 50 MG TAB PO SCH ×2 (09:20→20:27)
[2021-12-18] MEDS: FUROSEMIDE 10 MG/ML 4 ML VIAL IV SCH (09:21)
[2021-12-18] MEDS: FERROUS SULFATE 325 MG TAB PO SCH (09:21)
[2021-12-18] MEDS: APIXABAN 5 MG TAB PO SCH ×2 (09:21→20:27)
[2021-12-18] MEDS: carvediloL 6.25 MG TAB PO SCH ×2 (09:21→20:27)
[2021-12-18] MEDS: allopurinoL 100 MG TAB PO SCH (09:21)
--- NOTE | 2021-12-18 09:32 | P.PN ---
Subjective Patient is seen for follow-up for acute kidney injury on top of chronic kidney disease. Patient has CK D NKF stage IV to IIIB with previous creatinine about 1.6 in August 2021. Etiology is diabetic kidney disease. Patient also has a history of diastolic CHF and pulmonary hypertension with chronic lower extremity edema. Patient was admitted to the hospital with symptoms of dysuria and failed outpatient treatment for UTI. She is currently being diuresed. Patient was also anemic with a hemoglobin of 6.9. She has been transfused packed RBCs. Status post paracentesis on 12/14/21 with 4 L of fluid removed. Serum creatinine staying at about 1.6-1.7 mg/dL. Status post evaluation by gynecology for possible vaginal bleeding. No intervention planned at this time. Objective - Vital Signs Vital signs: Vital Signs Temp 97.9 F 12/18/21 04:00 Pulse 60 12/18/21 04:00 Resp 16 12/18/21 04:00 BP 140/66 12/18/21 04:00 Pulse Ox 94 L 12/18/21 04:00 FiO2 Intake & Output 12/17/21 12/18/21 12/18/21 18:59 06:59 18:59 Output Total 400 300 Balance -400 -300 Weight 100.5 kg Output: Urine 400 300 Other: Voiding Method Bedside Commode Bedside Commode External Catheter External Catheter # Voids 1 # Bowel Movements 1 - Exam Awake, comfortable, not in any acute distress Examination of the heart S1 and S2 Examination lungs bilateral breath sounds are heard Abdomen is soft distended nontender, site is noted Examination lower extremity shows 2+ edema bilaterally, improving TRIAL MGR exam grossly intact - Labs CBC & Chem 7: 12/18/21 04:21 12/18/21 04:21 Labs: Abnormal Lab Results - Last 24 Hours (Table) 12/17/21 12/17/21 12/17/21 Range/Units 08:54 11:33 16:31 RBC (3.80-5.40) m/uL Hgb (11.4-16.0) gm/dL Hct (34.0-46.0) % MCV (80.0-100.0) fL MCHC (31.0-37.0) g/dL Lymphocytes # (1.0-4.8) k/uL Sodium (137-145) mmol/L Chloride 112 H (98-107) mmol/L Carbon Dioxide (22-30) mmol/L BUN 71 H (7-17) mg/dL Creatinine 1.70 H (0.52-1.04) mg/dL Glucose 137 H (74-99) mg/dL POC Glucose (mg/dL) 208 H 223 H (70-110) mg/dL Calcium 8.0 L (8.4-10.2) mg/dL Total Bilirubin (0.2-1.3) mg/dL Alkaline Phosphatase (38-126) U/L Total Protein (6.3-8.2) g/dL Albumin (3.5-5.0) g/dL Ur Creatinine 24 Hour (800.0-1800.0) mg/24hr U Tot Protein 24h, Calc (42.0-225.0) mg/24hr 12/17/21 12/17/21 12/17/21 Range/Units 19:00 19:00 20:37 RBC (3.80-5.40) m/uL Hgb (11.4-16.0) gm/dL Hct (34.0-46.0) % MCV (80.0-100.0) fL MCHC (31.0-37.0) g/dL Lymphocytes # (1.0-4.8) k/uL Sodium (137-145) mmol/L Chloride (98-107) mmol/L Carbon Dioxide (22-30) mmol/L BUN (7-17) mg/dL Creatinine (0.52-1.04) mg/dL Glucose (74-99) mg/dL POC Glucose (mg/dL) 182 H (70-110) mg/dL Calcium (8.4-10.2) mg/dL Total Bilirubin (0.2-1.3) mg/dL Alkaline Phosphatase (38-126) U/L Total Protein (6.3-8.2) g/dL Albumin (3.5-5.0) g/dL Ur Creatinine 24 Hour 558.8 L (800.0-1800.0) mg/24hr U Tot Protein 24h, Calc 1716 H (42.0-225.0) mg/24hr 12/18/21 12/18/21 12/18/21 Range/Units 04:21 04:21 06:24 RBC 2.46 L (3.80-5.40) m/uL Hgb 7.8 L (11.4-16.0) gm/dL Hct 25.9 L (34.0-46.0) % MCV 105.5 H (80.0-100.0) fL MCHC 29.9 L (31.0-37.0) g/dL Lymphocytes # 0.6 L (1.0-4.8) k/uL Sodium 136 L (137-145) mmol/L Chloride 112 H (98-107) mmol/L Carbon Dioxide 21 L (22-30) mmol/L BUN 77 H (7-17) mg/dL Creatinine 1.70 H (0.52-1.04) mg/dL Glucose 144 H (74-99) mg/dL POC Glucose (mg/dL) 164 H (70-110) mg/dL Calcium 7.5 L (8.4-10.2) mg/dL Total Bilirubin 0.1 L (0.2-1.3) mg/dL Alkaline Phosphatase 127 H (38-126) U/L Total Protein 4.8 L (6.3-8.2) g/dL Albumin 2.2 L (3.5-5.0) g/dL Ur Creatinine 24 Hour (800.0-1800.0) mg/24hr U Tot Protein 24h, Calc (42.0-225.0) mg/24hr Assessment and Plan Assessment: 1. Chronic kidney disease NKF stage IV to IIIB with baseline creatinine around 1.6 mg/dL etiology is diabetic kidney disease. Patient's serum creatinine was down to around 1.48 and 1.5 possibly related to volume overload. She has had acute kidney injury episodes previously in August with peak creatinine at 2.3 mg/dL. Patient has significant proteinuria with protein creatinine ratio at 3.4. However, 24 hour urine protein was 1.7 g. Etiology is diabetic kidney disease. Serologies were all negative in August 2021. 2. Acute kidney injury associated with anemia. Currently nonoliguric. Blood pressure not low post paracentesis. 3. Chronic lower extremity edema also secondary to underlying CK D with nephrotic range proteinuria as well as pulmonary hypertension and chronic diastolic CHF 4. Anemia rule out GI bleed. Status post packed RBCs transfusion. Rule out iron deficiency. Also component of anemia of chronic disease from CK D 5. Ascites status post paracentesis, fluid is transudative. Patient does have a history of uterine cancer cytology is currently pending. 6. UTI status post antibiotics as outpatient. Failed outpatient therapy currently maintained on Rocephin. 7. [id number] pericardial effusion noted on echocardiogram, most likely related to overall volume overload. Patient is however maintained on hydralazine and need to rule out pericarditis associated with medications. I will order an antihistone antibody which is associated with pericarditis secondary to medications including hydralazine and minoxidil. 8. History of uterine cancer awaiting cytology on peritoneal fluid. Plan: Continue Aranesp Continue IV diuretics Maintain salt and fluid restriction Follow-up on results of ascitic fluid Patient will need repeat echocardiogram to follow-up on the pericardial effusion Check antihistone antibody.
[2021-12-18 11:32] LABS: Glucose,Whole Blood 204 mg/dL (70-110)
--- NOTE | 2021-12-18 11:51 | P.PN ---
Subjective Progress Note Date: 12/18/21 Principal diagnosis: ascites No more vaginal bleeding noted. The abdominal swelling and distension is getting worse. Patient had some abdominal pain yesterday, today ok. Denied nausea or vomiting. No chest pain or shortness of breath. Objective - Vital Signs Vital signs: Vital Signs Temp 98.1 F 12/18/21 08:00 Pulse 60 12/18/21 08:00 Resp 18 12/18/21 08:00 BP 145/64 12/18/21 08:00 Pulse Ox 95 12/18/21 08:00 FiO2 Intake & Output 12/17/21 12/18/21 12/18/21 18:59 06:59 18:59 Output Total 400 300 Balance -400 -300 Weight 100.5 kg Output: Urine 400 300 Other: Voiding Method Bedside Commode Bedside Commode Bedside Commode External Catheter External Catheter External Catheter # Voids 1 # Bowel Movements 1 - Exam Constitutional: No acute distress, conversant, pleasant Eyes:Anicteric sclerae, moist conjunctiva, no lid-lag, PERRLA, ENMT: Oropharynx clear, no erythema, exudates Neck: Supple, FROM, no masses, or JVD, No carotid bruits, No thyromegaly Lungs: Clear to auscultation, Clear to percussion, Normal respiratory effort, no accessory muscle use Cardiovascular: Heart regular in rate and rhythm, No murmurs, gallops, or rubs, 2+ peripheral edema Abdominal: Distended but Soft, Nontender, no guarding, rebound or rigidity, Normoactive bowel sounds, No hepatomegaly, No splenomegaly, No palpable mass Skin: Normal temperature, tone, texture, turgor, no induration, No subcutaneous nodules, No rash, lesions, No ulcers Extremities: No digital cyanosis, No clubbing, Pedal pulses intact and symmetrical, Radial pulses intact and symmetrical, No calf tenderness Psychiatric: Alert and oriented to person, place and time, appropriate affect, intact judgement Neuro: Muscles Strength 5/5 in all 4 extremities, Sensation to light touch grossly present throughout, Cranial nerves II-XII grossly intact, no focal sensory deficits - Labs CBC & Chem 7: 12/18/21 04:21 12/18/21 04:21 Labs: Abnormal Lab Results - Last 24 Hours (Table) 12/17/21 12/17/21 12/17/21 Range/Units 16:31 19:00 19:00 RBC (3.80-5.40) m/uL Hgb (11.4-16.0) gm/dL Hct (34.0-46.0) % MCV (80.0-100.0) fL MCHC (31.0-37.0) g/dL Lymphocytes # (1.0-4.8) k/uL Sodium (137-145) mmol/L Chloride (98-107) mmol/L Carbon Dioxide (22-30) mmol/L BUN (7-17) mg/dL Creatinine (0.52-1.04) mg/dL Glucose (74-99) mg/dL POC Glucose (mg/dL) 223 H (70-110) mg/dL Calcium (8.4-10.2) mg/dL Total Bilirubin (0.2-1.3) mg/dL Alkaline Phosphatase (38-126) U/L Total Protein (6.3-8.2) g/dL Albumin (3.5-5.0) g/dL Ur Creatinine 24 Hour 558.8 L (800.0-1800.0) mg/24hr U Tot Protein 24h, Calc 1716 H (42.0-225.0) mg/24hr 12/17/21 12/18/21 12/18/21 Range/Units 20:37 04:21 04:21 RBC 2.46 L (3.80-5.40) m/uL Hgb 7.8 L (11.4-16.0) gm/dL Hct 25.9 L (34.0-46.0) % MCV 105.5 H (80.0-100.0) fL MCHC 29.9 L (31.0-37.0) g/dL Lymphocytes # 0.6 L (1.0-4.8) k/uL Sodium 136 L (137-145) mmol/L Chloride 112 H (98-107) mmol/L Carbon Dioxide 21 L (22-30) mmol/L BUN 77 H (7-17) mg/dL Creatinine 1.70 H (0.52-1.04) mg/dL Glucose 144 H (74-99) mg/dL POC Glucose (mg/dL) 182 H (70-110) mg/dL Calcium 7.5 L (8.4-10.2) mg/dL Total Bilirubin 0.1 L (0.2-1.3) mg/dL Alkaline Phosphatase 127 H (38-126) U/L Total Protein 4.8 L (6.3-8.2) g/dL Albumin 2.2 L (3.5-5.0) g/dL Ur Creatinine 24 Hour (800.0-1800.0) mg/24hr U Tot Protein 24h, Calc (42.0-225.0) mg/24hr 12/18/21 12/18/21 Range/Units 06:24 11:31 RBC (3.80-5.40) m/uL Hgb (11.4-16.0) gm/dL Hct (34.0-46.0) % MCV (80.0-100.0) fL MCHC (31.0-37.0) g/dL Lymphocytes # (1.0-4.8) k/uL Sodium (137-145) mmol/L Chloride (98-107) mmol/L Carbon Dioxide (22-30) mmol/L BUN (7-17) mg/dL Creatinine (0.52-1.04) mg/dL Glucose (74-99) mg/dL POC Glucose (mg/dL) 164 H 204 H (70-110) mg/dL Calcium (8.4-10.2) mg/dL Total Bilirubin (0.2-1.3) mg/dL Alkaline Phosphatase (38-126) U/L Total Protein (6.3-8.2) g/dL Albumin (3.5-5.0) g/dL Ur Creatinine 24 Hour (800.0-1800.0) mg/24hr U Tot Protein 24h, Calc (42.0-225.0) mg/24hr Assessment and Plan Plan: # anasarca and ascites No history of liver cirrhosis but has history of uterine cancer Status post paracentesis, fluid cytology positive for adenocarcinoma Hold diuresis as ascites likely related to cancer, consult oncology Will do one more paracentesis tomorrow. # Vaginal postmenopausal bleeding on 12/17 Patient seen by [employer] SCALER on 12/17 Bleeding could be secondary to endometrial cancer, in light of anticoagulation treatment referred for outpatient follow-up #Chronic kidney disease stage III 3.5 gm sec to DM Significant proteinuria Continue per nephrology recommendation #Acute on chronic diastolic CHF Resolved. Cardiology consulted, echocardiogram with normal EF #Pericardial effusion Could be secondary to a general anasarca vs. metastatic cancer Antihistone antibody ordered to rule out drug-induced pericarditis caused by hydralazine versus minoxidil #Perfusion lung scan with high probability of pulmonary embolism Started on Eliquis Pulmonary following #Urinary tract infection Finished 5 days course of ceftriaxone #Type 2 diabetes mellitus Continue sliding scale insulin Dispo: likely to rehab after paracentesis tomorrow.
--- NOTE | 2021-12-18 11:51 | P.PN ---
Subjective Progress Note Date: 12/18/21 She denies chest pain or shortness of breath. Her abdomen remains soft, large, nontender still awaiting cytology from fluid removed during paracentesis. She lasix is held per Nephrology. Lower leg edema continues to improve and she continues to decrease in weight. Vital signs remained stable. She remains asymptomatic with mild-moderate pericardial effusion. Her Kidney function is unchanged from yesterday BUN is 77 creatinine is 1.7, hemoglobin is back down to 7.8. Objective - Vital Signs Vital signs: Vital Signs Temp 98.1 F 12/18/21 08:00 Pulse 60 12/18/21 08:00 Resp 18 12/18/21 08:00 BP 145/64 12/18/21 08:00 Pulse Ox 95 12/18/21 08:00 FiO2 Intake & Output 12/17/21 12/18/21 12/18/21 18:59 06:59 18:59 Output Total 400 300 Balance -400 -300 Weight 100.5 kg Output: Urine 400 300 Other: Voiding Method Bedside Commode Bedside Commode Bedside Commode External Catheter External Catheter External Catheter # Voids 1 # Bowel Movements 1 - Exam PHYSICAL EXAM: VITAL SIGNS: Reviewed. GENERAL: Well-developed in no acute distress. HEENT: Head is normocephalic. Pupils are equal, round. Sclerae anicteric. Mucous membranes of the mouth are moist. NECK: Supple. No JVD or thyromegaly RESPIRATORY: Respirations even and unlabored. Lungs diminished to auscultation bilaterally. CARDIO: Regular rate and rhythm. S1 and S2 heard. No murmur or gallops. Abdominal: Abdomen is large, soft and nontender EXTREMITIES: Normal range of motion. No clubbing or cyanosis. Peripheral pulses intact. bilateral lower extremity edema NEURO: Orientated to person, time, mood is appropriate - Labs CBC & Chem 7: 12/18/21 04:21 12/18/21 04:21 Labs: Abnormal Lab Results - Last 24 Hours (Table) 12/17/21 12/17/21 12/17/21 Range/Units 16:31 19:00 19:00 RBC (3.80-5.40) m/uL Hgb (11.4-16.0) gm/dL Hct (34.0-46.0) % MCV (80.0-100.0) fL MCHC (31.0-37.0) g/dL Lymphocytes # (1.0-4.8) k/uL Sodium (137-145) mmol/L Chloride (98-107) mmol/L Carbon Dioxide (22-30) mmol/L BUN (7-17) mg/dL Creatinine (0.52-1.04) mg/dL Glucose (74-99) mg/dL POC Glucose (mg/dL) 223 H (70-110) mg/dL Calcium (8.4-10.2) mg/dL Total Bilirubin (0.2-1.3) mg/dL Alkaline Phosphatase (38-126) U/L Total Protein (6.3-8.2) g/dL Albumin (3.5-5.0) g/dL Ur Creatinine 24 Hour 558.8 L (800.0-1800.0) mg/24hr U Tot Protein 24h, Calc 1716 H (42.0-225.0) mg/24hr 12/17/21 12/18/21 12/18/21 Range/Units 20:37 04:21 04:21 RBC 2.46 L (3.80-5.40) m/uL Hgb 7.8 L (11.4-16.0) gm/dL Hct 25.9 L (34.0-46.0) % MCV 105.5 H (80.0-100.0) fL MCHC 29.9 L (31.0-37.0) g/dL Lymphocytes # 0.6 L (1.0-4.8) k/uL Sodium 136 L (137-145) mmol/L Chloride 112 H (98-107) mmol/L Carbon Dioxide 21 L (22-30) mmol/L BUN 77 H (7-17) mg/dL Creatinine 1.70 H (0.52-1.04) mg/dL Glucose 144 H (74-99) mg/dL POC Glucose (mg/dL) 182 H (70-110) mg/dL Calcium 7.5 L (8.4-10.2) mg/dL Total Bilirubin 0.1 L (0.2-1.3) mg/dL Alkaline Phosphatase 127 H (38-126) U/L Total Protein 4.8 L (6.3-8.2) g/dL Albumin 2.2 L (3.5-5.0) g/dL Ur Creatinine 24 Hour (800.0-1800.0) mg/24hr U Tot Protein 24h, Calc (42.0-225.0) mg/24hr 12/18/21 12/18/21 Range/Units 06:24 11:31 RBC (3.80-5.40) m/uL Hgb (11.4-16.0) gm/dL Hct (34.0-46.0) % MCV (80.0-100.0) fL MCHC (31.0-37.0) g/dL Lymphocytes # (1.0-4.8) k/uL Sodium (137-145) mmol/L Chloride (98-107) mmol/L Carbon Dioxide (22-30) mmol/L BUN (7-17) mg/dL Creatinine (0.52-1.04) mg/dL Glucose (74-99) mg/dL POC Glucose (mg/dL) 164 H 204 H (70-110) mg/dL Calcium (8.4-10.2) mg/dL Total Bilirubin (0.2-1.3) mg/dL Alkaline Phosphatase (38-126) U/L Total Protein (6.3-8.2) g/dL Albumin (3.5-5.0) g/dL Ur Creatinine 24 Hour (800.0-1800.0) mg/24hr U Tot Protein 24h, Calc (42.0-225.0) mg/24hr Assessment and Plan Assessment: Acute on chronic diastolic congestive heart failure Acute on chronic anemia, s/p 1 unit RBC transfusion Urinary tract infection High probability of pulmonary embolism, per VQ scan Hypertension Hyperlipidemia Chronic kidney disease History of pericardial effusion History of severe pulmonary hypertension History of uterine cancer Plan: hold Lasix per nephrology Continue with Eliquis for anticoagulation Continue with all other current cardiac medications Continue to monitor kidney function. Daily weights. Accurate intake and output. Further recommendations based on clinical course The above impression and plan of care have been discussed and directed by the [facility] physician. Aurora Trujillo, nurse practitioner, acting as scribe for signing physician.
[2021-12-18 16:47] LABS: Glucose,Whole Blood 211 mg/dL (70-110)
[2021-12-18 20:21] LABS: Glucose,Whole Blood 186 mg/dL (70-110)
[2021-12-19] MEDS: HYDROcodone/APAP 5-325MG 1 EACH TAB PO PRN ×4 (02:32→23:19)
[2021-12-19 06:19] LABS: Glucose,Whole Blood 173 mg/dL (70-110)
[2021-12-19] MEDS: INSULIN ASPART (NovoLOG) 100 UNIT/ML VIAL SQ SCH ×4 (06:30→21:01)
[2021-12-19 08:34] LABS: Basophils % (A) 1 %; Eosinophils # (A) 0.2 k/uL (0-0.7); Eosinophils % (A) 4 %; HCT 26.1 % (34.0-46.0); Hypochromasia Marked; Lymphocytes # (A) 0.7 k/uL (1.0-4.8); Lymphocytes % (A) 15 %; MCH 32.4 pg (25.0-35.0); MCHC 30.5 g/dL (31.0-37.0); MCV 106.4 fL (80.0-100.0); Macrocytosis Moderate; Mean Platelet Volume 7.5; Monocytes # (A) 0.2 k/uL (0-1.0); Monocytes % (A) 5 %; Neutrophils # (A) 3.1 k/uL (1.3-7.7); Neutrophils % (A) 72 %; Platelet Count 306 k/uL (150-450); RBC 2.45 m/uL (3.80-5.40); RDW 15.2 % (11.5-15.5); WBC 4.3 k/uL (3.8-10.6)
[2021-12-19 08:35] LABS: Reticulocyte % 2.7 % (0.5-2.0)
[2021-12-19 08:46] LABS: Calcium 7.9 mg/dL (8.4-10.2); Potassium 4.4 mmol/L (3.5-5.1)
[2021-12-19 09:07] LABS: Immunoglobulin M 88.2 mg/dL (40.0-280.0)
--- NOTE | 2021-12-19 09:30 | P.PN ---
Subjective Patient is seen in follow-up for acute kidney injury on chronic kidney disease. Renal function a little better today. Has been voiding. Hemodynamically stable. Oral intake fair. No vomiting or diarrhea. Vital signs are stable. General: No acute distress. HEENT: Head exam is unremarkable. LUNGS: Breath sounds decreased. HEART: Rate and Rhythm are regular. ABDOMEN: Soft, distention noted. EXTREMITITES: No edema. Objective - Vital Signs Vital signs: Vital Signs Temp 97.9 F 12/19/21 08:00 Pulse 60 12/19/21 08:00 Resp 21 12/19/21 08:00 BP 142/65 12/19/21 08:00 Pulse Ox 96 12/19/21 08:00 FiO2 Intake & Output 12/18/21 12/19/21 12/19/21 18:59 06:59 18:59 Output Total 400 Balance -400 Weight 99.8 kg Output: Urine 400 Other: Voiding Method Bedside Commode Bedside Commode External Catheter External Catheter # Voids 4 1 - Labs CBC & Chem 7: 12/19/21 08:17 12/19/21 08:17 Labs: Abnormal Lab Results - Last 24 Hours (Table) 12/18/21 12/18/21 12/18/21 Range/Units 11:31 16:45 20:19 RBC (3.80-5.40) m/uL Hgb (11.4-16.0) gm/dL Hct (34.0-46.0) % MCV (80.0-100.0) fL MCHC (31.0-37.0) g/dL Lymphocytes # (1.0-4.8) k/uL Retic Count (0.5-2.0) % Chloride (98-107) mmol/L Carbon Dioxide (22-30) mmol/L BUN (7-17) mg/dL Creatinine (0.52-1.04) mg/dL Glucose (74-99) mg/dL POC Glucose (mg/dL) 204 H 211 H 186 H (70-110) mg/dL Calcium (8.4-10.2) mg/dL 12/19/21 12/19/21 12/19/21 Range/Units 06:18 08:17 08:17 RBC 2.45 L (3.80-5.40) m/uL Hgb 8.0 L (11.4-16.0) gm/dL Hct 26.1 L (34.0-46.0) % MCV 106.4 H (80.0-100.0) fL MCHC 30.5 L (31.0-37.0) g/dL Lymphocytes # 0.7 L (1.0-4.8) k/uL Retic Count (0.5-2.0) % Chloride 113 H (98-107) mmol/L Carbon Dioxide 21 L (22-30) mmol/L BUN 78 H (7-17) mg/dL Creatinine 1.58 H (0.52-1.04) mg/dL Glucose 115 H (74-99) mg/dL POC Glucose (mg/dL) 173 H (70-110) mg/dL Calcium 7.9 L (8.4-10.2) mg/dL 12/19/21 Range/Units 08:17 RBC (3.80-5.40) m/uL Hgb (11.4-16.0) gm/dL Hct (34.0-46.0) % MCV (80.0-100.0) fL MCHC (31.0-37.0) g/dL Lymphocytes # (1.0-4.8) k/uL Retic Count 2.7 H (0.5-2.0) % Chloride (98-107) mmol/L Carbon Dioxide (22-30) mmol/L BUN (7-17) mg/dL Creatinine (0.52-1.04) mg/dL Glucose (74-99) mg/dL POC Glucose (mg/dL) (70-110) mg/dL Calcium (8.4-10.2) mg/dL Assessment and Plan Plan: Assessment: 1. Acute kidney injury mostly prerenal secondary to anemia. Creatinine peaked at 1.7 this admission. 1.58 today. 2. Chronic kidney disease stage IIIB with baseline creatinine near 1.6 secondary to diabetic kidney disease. ?Membranous due to malignancy. Serologies in August 2021 were negative. 3. Ascites status post paracentesis on 4 L removed 12/14/2021. ?Malignant. 4. Acute on chronic diastolic CHF with pericardial effusion. 5. Acute blood loss anemia status post blood transfusion this admission. Also component of anemia of chronic kidney disease. On Aranesp. 6. Diabetes mellitus. Plan: Add oral Lasix 40 mg once daily. Follow-up CT chest. Stop hydralazine. Add nifedipine. Follow-up antihistone antibody. Avoid nephrotoxins. Continue to monitor renal function and urine output
[2021-12-19] MEDS: APIXABAN 5 MG TAB PO SCH ×3 (09:52→20:26)
[2021-12-19] MEDS: allopurinoL 100 MG TAB PO SCH (10:13)
[2021-12-19] MEDS: ISOSORBIDE MONONITRATE ER 30 MG TAB.ER.24H PO SCH (10:14)
[2021-12-19] MEDS: carvediloL 6.25 MG TAB PO SCH ×2 (10:14→20:26)
[2021-12-19] MEDS: FUROSEMIDE 40 MG TAB PO SCH (10:14)
[2021-12-19] MEDS: NIFEdipine XL 30 MG TAB.ER.24 PO SCH (10:14)
--- NOTE | 2021-12-19 10:15 | US ---
EXAMINATION TYPE: US abdomen limited DATE OF EXAM: 12/19/2021 COMPARISON: 12/14/2021 CLINICAL HISTORY: ASCITES. hx ascites. All four quadrants scanned for abdominal ascites evaluation. IMPRESSION: 1. Minimal free fluid within the abdomen
[2021-12-19 10:58] LABS: Protein, Total 4.9 g/dL (6.2-8.2)
[2021-12-19 11:00] LABS: INR 1.2 (<1.2); Prothrombin Time 12.6 sec (9.0-12.0)
--- NOTE | 2021-12-19 11:06 | P.PN ---
Subjective Progress Note Date: 12/19/21 Principal diagnosis: ascites Still the same. No new complaints. No vaginal bleeding or abdominal pain. No nausea or vomiting. Objective - Vital Signs Vital signs: Vital Signs Temp 97.9 F 12/19/21 08:00 Pulse 60 12/19/21 08:00 Resp 21 12/19/21 08:00 BP 142/65 12/19/21 08:00 Pulse Ox 96 12/19/21 08:00 FiO2 Intake & Output 12/18/21 12/19/21 12/19/21 18:59 06:59 18:59 Output Total 400 Balance -400 Weight 99.8 kg Output: Urine 400 Other: Voiding Method Bedside Commode Bedside Commode External Catheter External Catheter # Voids 4 1 - Exam Constitutional: No acute distress, conversant, pleasant Eyes:Anicteric sclerae, moist conjunctiva, no lid-lag, PERRLA, ENMT: Oropharynx clear, no erythema, exudates Neck: Supple, FROM, no masses, or JVD, No carotid bruits, No thyromegaly Lungs: Clear to auscultation, Clear to percussion, Normal respiratory effort, no accessory muscle use Cardiovascular: Heart regular in rate and rhythm, No murmurs, gallops, or rubs, 2+ peripheral edema Abdominal: Distended but Soft, Nontender, no guarding, rebound or rigidity, Normoactive bowel sounds, No hepatomegaly, No splenomegaly, No palpable mass Skin: Normal temperature, tone, texture, turgor, no induration, No subcutaneous nodules, No rash, lesions, No ulcers Extremities: No digital cyanosis, No clubbing, Pedal pulses intact and symmetrical, Radial pulses intact and symmetrical, No calf tenderness Psychiatric: Alert and oriented to person, place and time, appropriate affect, intact judgement Neuro: Muscles Strength 5/5 in all 4 extremities, Sensation to light touch grossly present throughout, Cranial nerves II-XII grossly intact, no focal sensory deficits - Labs CBC & Chem 7: 12/19/21 08:17 12/19/21 08:17 Labs: Abnormal Lab Results - Last 24 Hours (Table) 12/18/21 12/18/21 12/18/21 Range/Units 11:31 16:45 20:19 RBC (3.80-5.40) m/uL Hgb (11.4-16.0) gm/dL Hct (34.0-46.0) % MCV (80.0-100.0) fL MCHC (31.0-37.0) g/dL Lymphocytes # (1.0-4.8) k/uL Retic Count (0.5-2.0) % PT (9.0-12.0) sec INR (<1.2) Chloride (98-107) mmol/L Carbon Dioxide (22-30) mmol/L BUN (7-17) mg/dL Creatinine (0.52-1.04) mg/dL Glucose (74-99) mg/dL POC Glucose (mg/dL) 204 H 211 H 186 H (70-110) mg/dL Calcium (8.4-10.2) mg/dL Total Protein (PEP) (6.2-8.2) g/dL 12/19/21 12/19/21 12/19/21 Range/Units 06:18 08:17 08:17 RBC 2.45 L (3.80-5.40) m/uL Hgb 8.0 L (11.4-16.0) gm/dL Hct 26.1 L (34.0-46.0) % MCV 106.4 H (80.0-100.0) fL MCHC 30.5 L (31.0-37.0) g/dL Lymphocytes # 0.7 L (1.0-4.8) k/uL Retic Count (0.5-2.0) % PT (9.0-12.0) sec INR (<1.2) Chloride (98-107) mmol/L Carbon Dioxide (22-30) mmol/L BUN (7-17) mg/dL Creatinine (0.52-1.04) mg/dL Glucose (74-99) mg/dL POC Glucose (mg/dL) 173 H (70-110) mg/dL Calcium (8.4-10.2) mg/dL Total Protein (PEP) 4.9 L (6.2-8.2) g/dL 12/19/21 12/19/21 12/19/21 Range/Units 08:17 08:17 10:23 RBC (3.80-5.40) m/uL Hgb (11.4-16.0) gm/dL Hct (34.0-46.0) % MCV (80.0-100.0) fL MCHC (31.0-37.0) g/dL Lymphocytes # (1.0-4.8) k/uL Retic Count 2.7 H (0.5-2.0) % PT 12.6 H (9.0-12.0) sec INR 1.2 H (<1.2) Chloride 113 H (98-107) mmol/L Carbon Dioxide 21 L (22-30) mmol/L BUN 78 H (7-17) mg/dL Creatinine 1.58 H (0.52-1.04) mg/dL Glucose 115 H (74-99) mg/dL POC Glucose (mg/dL) (70-110) mg/dL Calcium 7.9 L (8.4-10.2) mg/dL Total Protein (PEP) (6.2-8.2) g/dL Assessment and Plan Plan: # anasarca and ascites No history of liver cirrhosis but has history of uterine cancer Status post paracentesis, fluid cytology positive for adenocarcinoma Hold diuresis as ascites likely related to cancer, D/w oncology who ordered chest CT, pending One more paracentesis ordered # Vaginal postmenopausal bleeding on 12/17 Patient seen by [facility] on 12/17 Bleeding could be secondary to endometrial cancer, in light of anticoagulation treatment referred for outpatient follow-up #Chronic kidney disease stage III 3.5 gm sec to DM Significant proteinuria Continue per nephrology recommendation #Acute on chronic diastolic CHF Resolved. Cardiology consulted, echocardiogram with normal EF #Pericardial effusion Could be secondary to a general anasarca vs. metastatic cancer Antihistone antibody ordered to rule out drug-induced pericarditis caused by hydralazine versus minoxidil #Perfusion lung scan with high probability of pulmonary embolism Started on Eliquis Pulmonary following #Urinary tract infection Finished 5 days course of ceftriaxone #Type 2 diabetes mellitus Continue sliding scale insulin Dispo: likely to rehab
[2021-12-19 11:15] VITALS: BMI 34.4
--- NOTE | 2021-12-19 11:26 | CT ---
EXAMINATION TYPE: CT chest wo con DATE OF EXAM: 12/19/2021 INDICATION: Staging CT DLP: 459.2 mGy.cm Automated Exposure Control for Dose Reduction was Utilized. TECHNIQUE AND CONTRAST: CT scan of the chest is performed without IV contrast administration. COMPARISON: CT dated 03/02/2021 FINDINGS: Small bilateral pleural effusions, slightly larger on the left side. Adjacent subsegmental pulmonary atelectasis. Associated infection cannot be excluded. No definite lung nodule or suspicious lesion id entified. Patent trachea and main bronchi. No pneumothorax. Cardiomegaly with moderate to marked pericardial effusion. Recommend correlation with echocardiograph ic results. Hypodense blood within the heart which may suggest anemia, please correlate with hemoglob in level. Coronary arterial calcifications. No pathologically enlarged lymph nodes in the chest by this nonenhanced CT scan. Diffuse body wall mathis bcutaneous edema, fluid and fat stranding. Upper abdominal perihepatic, perisplenic and free fluid wi th fat stranding. Degenerative changes of the thoracic spine and sternoclavicular joints. No gross ag gressive bone lesion. IMPRESSION: Diffuse anasarca as described above. Recommend clinical correlation and further workup for the underl abbey etiology. Cardiomegaly. No gross suspicious lung lesion or definite pulmonary nodule in the aera keri portion of the lungs. Other findings as described above.
[2021-12-19 11:39] LABS: Glucose,Whole Blood 199 mg/dL (70-110)
--- NOTE | 2021-12-19 12:43 | P.PN ---
Subjective Progress Note Date: 12/19/21 HISTORY OF PRESENT ILLNESS: This is a 66-year-old female with a past medical history significant for hypertension, hyperlipidemia, chronic kidney disease, pericardial effusion, severe pulmonary hypertension, and congestive heart failure with preserved ejection fraction. Patient follows in the office with Dr. Li. We have been asked to see the patient in consultation for CHF. Patient examined at the bedside. Patient states she presented to the emergency room because she was having difficulty urinating. She was diagnosed with a urinary tract infection and has been receiving antibiotics. She denies any shortness of breath. She denies chest pain or pressure. She reports chronic lower extremity edema, left worse than right, than is unchanged from her baseline. She reports abdominal bloating. She is receiving IV Lasix 60mg BID. Interventional radiology has been consulted for paracentesis. Patient remains on IV heparin as she underwent a VQ scan revealing high probability for pulmonary embolism. The patient denies any history of DVT or PE. The patient was also found to be anemic on admission with a hemoglobin of 6.9. She received 1 unit packed RBCs. The patient states that she has a history of anemia. She is unsure if she has had endoscopy in the past. She denies any dark stools or bright red blood in her stools. * EKG reveals sinus mechanism with no signs of acute ischemia * Chest xray findings consistent with mild CHF. Marked cardiomegaly and small bilateral pleural effusions. * V/Q scan: High probability of pulmonary embolism * Lower extremity Doppler: Negative for DVT bilaterally * Laboratory data: WBC 5.0. Hemoglobin 8.0. Platelet count 315. Sodium 137. Potassium 4.6. BUN 88. Creatinine 1.59. ProBNP 12,000. * Current home cardiac medications include hydralazine 50 mg twice a day, Imdur 30 mg daily, Lasix 40 mg 3 times a day, carvedilol 6.25 mg twice a day * Most recent echocardiogram obtained in August 2021 revealed ejection fraction 50-55%, mild LVH, right ventricle moderate to severely enlarged, mild MR, moderate TR, moderate pulmonary hypertension with RVSP of 53.40 mmHg, moderate generalized pericardial effusion * Cardiac catheterization history: unknown 12/13/2021 Patient examined this morning at the bedside. She denies chest pain or pressure. Denies SOB. She continues to repeat abdominal bloating. She remains on IV lasix. 12/14/2021 Patient examined this morning at the bedside. She denies chest pain or pressure. Denies SOB. She is to undergo diagnostic paracentesis. Vital signs are stable. Echocardiogram completed revealing ejection fraction 50-55%, mild mitral regurgitation, mild tricuspid regurgitation. 12/19/2021 Patient is s/p paracentesis on 12/15/2019 with removal of 4 L of fluid. Cyto logy reveals rare atypical cells suspicious for metastatic adenocarcinoma. Patient has been started on oral lasix today per nephrology. She denies chest pain or pressure. Denies SOB. PHYSICAL EXAM: VITAL SIGNS: Reviewed. GENERAL: Well-developed in no acute distress. HEENT: Head is normocephalic. Pupils are equal, round. Sclerae anicteric. Mucous membranes of the mouth are moist. Neck supple. No JVD or thyromegaly LUNGS: Respirations even and unlabored. Lungs diminished bilaterally. HEART: Regular rate and rhythm. S1 and S2 heard. Systolic murmur noted. EXTREMITIES: Normal range of motion. No clubbing or cyanosis. Peripheral pulses intact. Trace LE edema. ASSESSMENT: Urinary tract infection Acute on chronic congestive heart failure with preserved ejection fraction S/P paracentesis with removal of 4 L, cytology reveals rare atypical cells suspicious for metastatic adenocarcinoma High probability of pulmonary embolism, per VQ scan Hypertension Hyperlipidemia Chronic kidney disease History of pericardial effusion History of severe pulmonary hypertension History of uterine cancer Acute on chronic anemia, s/p 1 unit RBC transfusion PLAN: Continue current cardiac medications Patient scheduled to undergo CT chest. Await further input from oncology. Further recommendations pending patient course Nurse practitioner note has been reviewed by physician. Signing provider agrees with the documented findings, assessment, and plan of care. Objective - Vital Signs Vital signs: Vital Signs Temp 97.7 F 12/19/21 11:42 Pulse 62 12/19/21 11:42 Resp 21 12/19/21 08:00 BP 162/67 12/19/21 11:42 Pulse Ox 96 12/19/21 11:42 FiO2 Intake & Output 12/18/21 12/19/21 12/19/21 18:59 06:59 18:59 Output Total 400 200 Balance -400 -200 Weight 99.8 kg 99.8 kg Output: Urine 400 200 Other: Voiding Method Bedside Commode Bedside Commode External Catheter External Catheter # Voids 4 1 - Labs CBC & Chem 7: 12/19/21 08:17 12/19/21 08:17 Labs: Abnormal Lab Results - Last 24 Hours (Table) 12/18/21 12/18/21 12/19/21 Range/Units 16:45 20:19 06:18 RBC (3.80-5.40) m/uL Hgb (11.4-16.0) gm/dL Hct (34.0-46.0) % MCV (80.0-100.0) fL MCHC (31.0-37.0) g/dL Lymphocytes # (1.0-4.8) k/uL Retic Count (0.5-2.0) % PT (9.0-12.0) sec INR (<1.2) Chloride (98-107) mmol/L Carbon Dioxide (22-30) mmol/L BUN (7-17) mg/dL Creatinine (0.52-1.04) mg/dL Glucose (74-99) mg/dL POC Glucose (mg/dL) 211 H 186 H 173 H (70-110) mg/dL Calcium (8.4-10.2) mg/dL Total Protein (PEP) (6.2-8.2) g/dL 12/19/21 12/19/21 12/19/21 Range/Units 08:17 08:17 08:17 RBC 2.45 L (3.80-5.40) m/uL Hgb 8.0 L (11.4-16.0) gm/dL Hct 26.1 L (34.0-46.0) % MCV 106.4 H (80.0-100.0) fL MCHC 30.5 L (31.0-37.0) g/dL Lymphocytes # 0.7 L (1.0-4.8) k/uL Retic Count (0.5-2.0) % PT (9.0-12.0) sec INR (<1.2) Chloride 113 H (98-107) mmol/L Carbon Dioxide 21 L (22-30) mmol/L BUN 78 H (7-17) mg/dL Creatinine 1.58 H (0.52-1.04) mg/dL Glucose 115 H (74-99) mg/dL POC Glucose (mg/dL) (70-110) mg/dL Calcium 7.9 L (8.4-10.2) mg/dL Total Protein (PEP) 4.9 L (6.2-8.2) g/dL 12/19/21 12/19/21 12/19/21 Range/Units 08:17 10:23 11:37 RBC (3.80-5.40) m/uL Hgb (11.4-16.0) gm/dL Hct (34.0-46.0) % MCV (80.0-100.0) fL MCHC (31.0-37.0) g/dL Lymphocytes # (1.0-4.8) k/uL Retic Count 2.7 H (0.5-2.0) % PT 12.6 H (9.0-12.0) sec INR 1.2 H (<1.2) Chloride (98-107) mmol/L Carbon Dioxide (22-30) mmol/L BUN (7-17) mg/dL Creatinine (0.52-1.04) mg/dL Glucose (74-99) mg/dL POC Glucose (mg/dL) 199 H (70-110) mg/dL Calcium (8.4-10.2) mg/dL Total Protein (PEP) (6.2-8.2) g/dL
--- NOTE | 2021-12-19 16:05 | P.CONS ---
History of Present Illness - Reason for Consult Consult date: 12/19/21 Macrocytic Anemia, Endometrial Cancer Requesting physician: Sunil Chan - History of Present Illness Mrs. Guillen was originally referred to us in 2018 for anemia, however this appointment was cancelled and at the time per the EMR notes primary team did not wish to reschedule. Patient is now admitted with symptomatic anemia. She as a known diagnosis of endometrial biopsy confirmed poorly differentiated endometrial adenocarcinoma. She received radiation treatment as definitive treatment. Appears she is now receiving epogen for CKD (unknown stage) induced anemia per nephrology on 12/16/2021. She is macrocytic. Macrocytosis presented with worsening renal function in 2018 per trend of labs. Endometrial cancer was diagnosed in March of 2021, she follows with outside team. Medical history is also including hypertension, diabetes, and CKD. She presented with dysuria and treated for UTI and with symptomatic anemia received a unit of PRBC. On admission she complained of abdominal cramps, abdominal distention, bloating sensation in the abdomen, and swelling and fluid retention in her lower extremities. CT of the abdomen showed extensive subcutaneous edema and abdominal ascites with mild the pleural effusions and basilar atelectasis. It was also evidence of cardiomegaly and pericardial effusion. VQ scan ordered by the admitting physician showed high probability for pulmonary embolism. Could not have a CT angiogram of the chest because of her renal functioning. [facility] [place] [facility] is following for this. Venous Doppler of the legs was negative for DVT. Patient is now on heparin, she was seen by many consultants since admission including cardiology scheduled to have 2-D echocardiogram, advised to continue Lasix, and recommended interventional radiology for paracentesis. She had a paracentesis and unfortunetly cytology looks consistent with metastatic adenocarcinoma. Review of Systems All systems: negative Constitutional: Reports as per HPI Past Medical History Past Medical History: Cancer, Diabetes Mellitus, Hypertension, Renal Disease Additional Past Medical History / Comment(s): fall 2 year ago, now walks with cane History of Any Multi-Drug Resistant Organisms: None Reported Past Surgical History: No Surgical Hx Reported Past Anesthesia/Blood Transfusion Reactions: No Reported Reaction Past Psychological History: Depression Smoking Status: Never smoker Past Alcohol Use History: None Reported Past Drug Use History: None Reported - Past Family History Father Family Medical History: Myocardial Infarction (DE) Additional Family Medical History / Comment(s): father of DE at 58 years old Mother Additional Family Medical History / Comment(s): mother of old age at 95 years old Medications and Allergies Home Medications Medication Instructions Recorded Confirmed Type allopurinoL [Zyloprim] 100 mg PO DAILY 12/16/20 12/10/21 History Linagliptin [Tradjenta] 5 mg PO DAILY 08/02/21 12/10/21 History Isosorbide Mononitrate ER [Imdur] 30 mg PO DAILY tablet 08/09/21 12/10/21 Rx Ferrous Sulfate [Iron (65 MG 325 mg PO Q48H 10/11/21 12/10/21 History Elemental)] Furosemide [Lasix] 40 mg PO TID 12/10/21 12/10/21 History Insulin Lispro [humaLOG Kwikpen] See Protocol SQ ACHS 12/10/21 12/10/21 History Nitrofurantoin Monohyd/M-Cryst 100 mg PO BID 12/10/21 12/10/21 History [Macrobid] carvediloL [Coreg] 6.25 mg PO BID 12/10/21 12/10/21 History hydrALAZINE HCL [Apresoline] 50 mg PO BID 12/10/21 12/10/21 History sitaGLIPtin [Januvia] 50 mg PO DAILY 12/10/21 12/10/21 History Allergies Allergy/AdvReac Type Severity Reaction Status Date / Time No Known Allergies Allergy Verified 12/10/21 19:18 Physical Exam Vitals: Vital Signs Temp Pulse Resp BP Pulse Ox 12/18/21 16:00 98.1 F 66 18 170/81 12/18/21 14:00 61 18 12/18/21 12:00 98.0 F 61 18 151/109 12/18/21 08:00 98.1 F 60 18 145/64 95 12/18/21 04:00 97.9 F 60 16 140/66 94 L 12/18/21 01:44 60 16 12/17/21 23:08 98.1 F 60 16 137/40 95 12/17/21 20:00 98 F 62 16 154/60 95 Intake and Output 12/18/21 12/18/21 12/18/21 06:59 14:59 22:59 Output Total 300 Balance -300 Output: Urine 300 Other: Voiding Method Bedside Commode Bedside Commode External Catheter External Catheter # Voids 1 4 # Bowel Movements 1 Weight 100.5 kg - Constitutional General appearance: cooperative, no acute distress - EENT Eyes: EOMI ENT: NA/AT - Respiratory Respiratory: bilateral: CTA - Cardiovascular Rhythm: regularly irregular foot Peripheral Edema: bilateral: 2+ (Bolateral Legs) - Gastrointestinal General gastrointestinal: distended, tenderness - Integumentary Integumentary: pale - Neurologic Neurologic: CNII-XII intact - Musculoskeletal Musculoskeletal: generalized weakness - Psychiatric Psychiatric: A&O x's 3 Results CBC & Chem 7: 12/19/21 08:17 12/19/21 08:17 Labs: Abnormal Lab Results - Last 24 Hours (Table) 12/17/21 12/17/21 12/17/21 Range/Units 19:00 19:00 20:37 RBC (3.80-5.40) m/uL Hgb (11.4-16.0) gm/dL Hct (34.0-46.0) % MCV (80.0-100.0) fL MCHC (31.0-37.0) g/dL Lymphocytes # (1.0-4.8) k/uL Sodium (137-145) mmol/L Chloride (98-107) mmol/L Carbon Dioxide (22-30) mmol/L BUN (7-17) mg/dL Creatinine (0.52-1.04) mg/dL Glucose (74-99) mg/dL POC Glucose (mg/dL) 182 H (70-110) mg/dL Calcium (8.4-10.2) mg/dL Total Bilirubin (0.2-1.3) mg/dL Alkaline Phosphatase (38-126) U/L Total Protein (6.3-8.2) g/dL Albumin (3.5-5.0) g/dL Ur Creatinine 24 Hour 558.8 L (800.0-1800.0) mg/24hr U Tot Protein 24h, Calc 1716 H (42.0-225.0) mg/24hr 12/18/21 12/18/21 12/18/21 Range/Units 04:21 04:21 06:24 RBC 2.46 L (3.80-5.40) m/uL Hgb 7.8 L (11.4-16.0) gm/dL Hct 25.9 L (34.0-46.0) % MCV 105.5 H (80.0-100.0) fL MCHC 29.9 L (31.0-37.0) g/dL Lymphocytes # 0.6 L (1.0-4.8) k/uL Sodium 136 L (137-145) mmol/L Chloride 112 H (98-107) mmol/L Carbon Dioxide 21 L (22-30) mmol/L BUN 77 H (7-17) mg/dL Creatinine 1.70 H (0.52-1.04) mg/dL Glucose 144 H (74-99) mg/dL POC Glucose (mg/dL) 164 H (70-110) mg/dL Calcium 7.5 L (8.4-10.2) mg/dL Total Bilirubin 0.1 L (0.2-1.3) mg/dL Alkaline Phosphatase 127 H (38-126) U/L Total Protein 4.8 L (6.3-8.2) g/dL Albumin 2.2 L (3.5-5.0) g/dL Ur Creatinine 24 Hour (800.0-1800.0) mg/24hr U Tot Protein 24h, Calc (42.0-225.0) mg/24hr 12/18/21 12/18/21 Range/Units 11:31 16:45 RBC (3.80-5.40) m/uL Hgb (11.4-16.0) gm/dL Hct (34.0-46.0) % MCV (80.0-100.0) fL MCHC (31.0-37.0) g/dL Lymphocytes # (1.0-4.8) k/uL Sodium (137-145) mmol/L Chloride (98-107) mmol/L Carbon Dioxide (22-30) mmol/L BUN (7-17) mg/dL Creatinine (0.52-1.04) mg/dL Glucose (74-99) mg/dL POC Glucose (mg/dL) 204 H 211 H (70-110) mg/dL Calcium (8.4-10.2) mg/dL Total Bilirubin (0.2-1.3) mg/dL Alkaline Phosphatase (38-126) U/L Total Protein (6.3-8.2) g/dL Albumin (3.5-5.0) g/dL Ur Creatinine 24 Hour (800.0-1800.0) mg/24hr U Tot Protein 24h, Calc (42.0-225.0) mg/24hr CT scan - abdomen: report reviewed CT scan - pelvis: report reviewed Assessment and Plan (1) Chronic kidney disease Current Visit: Yes Status: Acute Code(s): N18.9 - CHRONIC KIDNEY DISEASE, UNSPECIFIED SNOMED Code(s): 046288734 (2) Dysfunctional uterine bleeding Current Visit: No Status: Acute Code(s): N93.8 - OTHER SPECIFIED ABNORMAL UTERINE AND VAGINAL BLEEDING SNOMED Code(s): 04808925624371 (3) Macrocytic anemia Narrative/Plan: Macrocytosis since 2018 Further work-up ordered COmponent of CKD, malignancy and postmenopausal bleeding Current Visit: No Status: Acute Code(s): D53.9 - NUTRITIONAL ANEMIA, UNSPECIFIED SNOMED Code(s): 49734977 (4) Adenocarcinoma of the endometrium/uterus Narrative/Plan: Ascites fluid positive for progressive cancer Current Visit: Yes Status: Acute Code(s): C54.1 - MALIGNANT NEOPLASM OF ENDOMETRIUM SNOMED Code(s): 524252580
[2021-12-19 16:35] LABS: Glucose,Whole Blood 187 mg/dL (70-110)
[2021-12-19] MEDS: hydrALAZINE HCL 50 MG TAB PO SCH (17:47)
[2021-12-19 20:52] LABS: Glucose,Whole Blood 228 mg/dL (70-110)
[2021-12-19] MEDS: DOCUSATE 100 MG CAP PO PRN (23:19)
[2021-12-20] MEDS: ACETAMINOPHEN TAB 325 MG TAB PO PRN (03:31)
[2021-12-20 05:52] LABS: Glucose,Whole Blood 167 mg/dL (70-110)
[2021-12-20] MEDS: HYDROcodone/APAP 5-325MG 1 EACH TAB PO PRN ×2 (06:01→13:02)
[2021-12-20] MEDS: INSULIN ASPART (NovoLOG) 100 UNIT/ML VIAL SQ SCH ×2 (06:01→13:01)
[2021-12-20 07:58] LABS: Basophils % (A) 1 %; Eosinophils # (A) 0.2 k/uL (0-0.7); Eosinophils % (A) 4 %; HCT 27.6 % (34.0-46.0); HGB 8.2 gm/dL (11.4-16.0); Hypochromasia Marked; Lymphocytes # (A) 0.6 k/uL (1.0-4.8); Lymphocytes % (A) 15 %; MCH 32.2 pg (25.0-35.0); MCHC 29.7 g/dL (31.0-37.0); MCV 108.5 fL (80.0-100.0); Macrocytosis Marked; Mean Platelet Volume 7.6; Monocytes # (A) 0.2 k/uL (0-1.0); Monocytes % (A) 6 %; Neutrophils # (A) 3.1 k/uL (1.3-7.7); Neutrophils % (A) 73 %; Platelet Count 289 k/uL (150-450); RBC 2.55 m/uL (3.80-5.40); RDW 15.3 % (11.5-15.5); WBC 4.2 k/uL (3.8-10.6)
[2021-12-20 08:00] LABS: Albumin 2.5 g/dL (3.5-5.0); Calcium 7.8 mg/dL (8.4-10.2); Potassium 4.7 mmol/L (3.5-5.1); Total Bilirubin 0.2 mg/dL (0.2-1.3); Total Protein 5.1 g/dL (6.3-8.2)
--- NOTE | 2021-12-20 08:57 | P.PN ---
Subjective Patient is seen in follow-up for acute kidney injury on chronic kidney disease. Renal function slightly worse today. Has been voiding. Hemodynamically stable. Oral intake fair. No vomiting or diarrhea. Vital signs are stable. General: No acute distress. HEENT: Head exam is unremarkable. LUNGS: Breath sounds decreased. HEART: Rate and Rhythm are regular. ABDOMEN: Soft, distention noted. EXTREMITITES: No edema. Objective - Vital Signs Vital signs: Vital Signs Temp 98 F 12/19/21 20:20 Pulse 58 L 12/20/21 03:20 Resp 18 12/20/21 03:20 BP 118/51 12/20/21 03:20 Pulse Ox 93 L 12/20/21 03:20 FiO2 Intake & Output 12/19/21 12/20/21 12/20/21 18:59 06:59 18:59 Intake Total 222 Output Total 400 200 Balance -400 -200 222 Weight 99.8 kg 101.2 kg Intake: Oral 222 Output: Urine 400 200 Other: Voiding Method External Catheter External Catheter # Voids 1 - Labs CBC & Chem 7: 12/20/21 07:15 12/20/21 07:15 Labs: Abnormal Lab Results - Last 24 Hours (Table) 12/19/21 12/19/21 12/19/21 Range/Units 08:17 08:17 10:23 RBC (3.80-5.40) m/uL Hgb (11.4-16.0) gm/dL Hct (34.0-46.0) % MCV (80.0-100.0) fL MCHC (31.0-37.0) g/dL Lymphocytes # (1.0-4.8) k/uL Macrocytosis PT 12.6 H (9.0-12.0) sec INR 1.2 H (<1.2) Chloride (98-107) mmol/L Carbon Dioxide (22-30) mmol/L BUN (7-17) mg/dL Creatinine (0.52-1.04) mg/dL Glucose (74-99) mg/dL POC Glucose (mg/dL) (70-110) mg/dL Calcium (8.4-10.2) mg/dL Total Protein (6.3-8.2) g/dL Total Protein (PEP) 4.9 L (6.2-8.2) g/dL Albumin (3.5-5.0) g/dL CA 125 Antigen 487.0 H (0.0-30.1) U/mL 12/19/21 12/19/21 12/19/21 Range/Units 11:37 16:34 20:50 RBC (3.80-5.40) m/uL Hgb (11.4-16.0) gm/dL Hct (34.0-46.0) % MCV (80.0-100.0) fL MCHC (31.0-37.0) g/dL Lymphocytes # (1.0-4.8) k/uL Macrocytosis PT (9.0-12.0) sec INR (<1.2) Chloride (98-107) mmol/L Carbon Dioxide (22-30) mmol/L BUN (7-17) mg/dL Creatinine (0.52-1.04) mg/dL Glucose (74-99) mg/dL POC Glucose (mg/dL) 199 H 187 H 228 H (70-110) mg/dL Calcium (8.4-10.2) mg/dL Total Protein (6.3-8.2) g/dL Total Protein (PEP) (6.2-8.2) g/dL Albumin (3.5-5.0) g/dL CA 125 Antigen (0.0-30.1) U/mL 12/20/21 12/20/21 12/20/21 Range/Units 05:51 07:15 07:15 RBC 2.55 L (3.80-5.40) m/uL Hgb 8.2 L (11.4-16.0) gm/dL Hct 27.6 L (34.0-46.0) % MCV 108.5 H (80.0-100.0) fL MCHC 29.7 L (31.0-37.0) g/dL Lymphocytes # 0.6 L (1.0-4.8) k/uL Macrocytosis Marked A PT (9.0-12.0) sec INR (<1.2) Chloride 113 H (98-107) mmol/L Carbon Dioxide 20 L (22-30) mmol/L BUN 82 H (7-17) mg/dL Creatinine 1.74 H (0.52-1.04) mg/dL Glucose 130 H (74-99) mg/dL POC Glucose (mg/dL) 167 H (70-110) mg/dL Calcium 7.8 L (8.4-10.2) mg/dL Total Protein 5.1 L (6.3-8.2) g/dL Total Protein (PEP) (6.2-8.2) g/dL Albumin 2.5 L (3.5-5.0) g/dL CA 125 Antigen (0.0-30.1) U/mL Assessment and Plan Plan: Assessment: 1. Acute kidney injury mostly prerenal secondary to anemia. Renal function little worse today due to diuresis. Creatinine 1.74. 2. Chronic kidney disease stage IIIB with baseline creatinine near 1.6 secondary to diabetic kidney disease. ?Membranous due to malignancy. Serologies in August 2021 were negative. 24-hour urine protein 1.7 g. 3. Ascites status post paracentesis on 4 L removed 12/14/2021. 4. Acute on chronic diastolic CHF with pericardial effusion. 5. Acute blood loss anemia status post blood transfusion this admission. Also component of anemia of chronic kidney disease. On Aranesp. 6. Diabetes mellitus. 7. Metastatic adenocarcinoma. Oncology following. 8. Metabolic acidosis secondary to acute kidney injury. Plan: Maintain Lasix 40 mg once daily. Stopped hydralazine. Hold nifedipine for systolic blood pressure less than 120. Follow-up antihistone antibody. Avoid nephrotoxins. Continue to monitor renal function and urine output. Add oral bicarb.
[2021-12-20] MEDS ORDERED: SODIUM BICARBONATE TAB 650 MG TAB PO SCH (09:00)
[2021-12-20] MEDS: APIXABAN 5 MG TAB PO SCH (10:54)
[2021-12-20] MEDS: ISOSORBIDE MONONITRATE ER 30 MG TAB.ER.24H PO SCH (10:55)
[2021-12-20] MEDS: carvediloL 6.25 MG TAB PO SCH (10:55)
[2021-12-20] MEDS: NIFEdipine XL 30 MG TAB.ER.24 PO SCH (10:55)
[2021-12-20] MEDS: allopurinoL 100 MG TAB PO SCH (10:55)
[2021-12-20] MEDS: FERROUS SULFATE 325 MG TAB PO SCH (10:55)
[2021-12-20] MEDS: FUROSEMIDE 40 MG TAB PO SCH (10:55)
[2021-12-20 11:36] LABS: Glucose,Whole Blood 186 mg/dL (70-110)
[2021-12-20 12:02] LABS: Free Kappa Lt Chain Qnt, Serum 7.14 mg/dL (0.33-1.94); Free Lambda Lt Chain Qnt, Seru 3.74 mg/dL (0.57-2.63)
--- NOTE | 2021-12-20 12:38 | P.DS ---
Providers Date of admission: 12/10/21 18:25 Expected date of discharge: 12/20/21 Attending physician: Herrera Lopez MD Consults: 12/11/21 17:46 Consult Physician Routine Consulting Provider: Marvel Li Consult Reason/Comments: chf Do you want consulting provider notified?: Yes 12/12/21 11:00 Consult Physician Routine Consulting Provider: César Wheeler Consult Reason/Comments: PE on VQ scan Do you want consulting provider notified?: Yes 12/13/21 14:19 Consult Physician Routine Consulting Provider: Adela Johnson Consult Reason/Comments: Ascites Do you want consulting provider notified?: Yes 12/15/21 12:34 Consult Physician Routine Consulting Provider: Columba Ernst Consult Reason/Comments: CKD, new onset ascites Do you want consulting provider notified?: Yes 12/15/21 18:36 Consult Physician Routine Consulting Provider: Columba Ernst Consult Reason/Comments: UPC 3.5, non-cirrhotic, non-portal HTN related ascites; CKD IIIb Do you want consulting provider notified?: Yes 12/16/21 16:02 Consult Physician Urgent Consulting Provider: Stuart Squires Consult Reason/Comments: vaginal bleeding, history of Endometrial adenocarcinoma 03/2021 Do you want consulting provider notified?: Yes 12/18/21 11:44 Consult Physician Routine Consulting Provider: Giuseppe Bello Consult Reason/Comments: CANCER Do you want consulting provider notified?: Yes Primary care physician: [facility] Course: 66-year-old female with a past medical history of uterine cancer, type 2 diabetes mellitus, chronic anemia, hypertension, chronic renal disease who pr esented to the emergency department with complaints of abdominal distention generalized abdominal discomfort which she states she felt was related to her urinary tract infection. She was recently diagnosed with a urinary tract infection and was currently taking ciprofloxacin. States that she did not feel any improvement in her symptoms. On admission she was noted to have an elevated d-dimer and to be anemic, elevated d-dimer and underwent a CT of abdomen and pelvis without contrast that showed extensive subcutaneous edema increased compared to old exam. Abdominal ascites significantly increased compared to old exam with mild pleural effusions and basilar atelectasis increased. Cardiomegaly and pericardial effusion unchanged. She then underwent bilateral lower extremity venous duplex which was negative for DVT, pulmonary perfusion study for the elevated d-dimer that showed high probability for pulmonary embolism. She was started on a heparin drip for her suspected pulmonary embolism. It was later switched to eliquis. She then underwent a abdominal ultrasound showing moderate abdominal ascites and she did have paracentesis with removal of 4 L of fluid. She denies any previous history of liver disease. No previous history of alcohol abuse. Denies any previous history of ascites or paracentesis in the past. No history of hepatitis. Cytology reveals rare atypical cells suspicious for metastatic adenocarcinoma. Patient was also seen by cardiology due to having pericardial effusion, severe pulmonary hypertension, and acute exacerbation of congestive heart failure with preserved ejection fraction. Patient follows in the office with Dr. Li. She was treated with IV Lasix 60mg BID. EKG reveals sinus mechanism with no signs of acute ischemia. Chest xray findings consistent with mild CHF. Marked cardiomegaly and small bilateral pleural effusions. Echo showed ejection fraction 50-55%, mild mitral regurgitation, mild tricuspid regurgitation. The patient was also found to be anemic on admission with a hemoglobin of 6.9. She received 1 unit packed RBCs. She does have hx of chronic anemia. She was also seen by oncology who ordered CT chest. No mets found. She was cleared for discharge by oncology. Will follow with radiation oncology and Dr. Bello in the office. Further recommendations pending patient course Of note she had one episode of vaginal postmenopausal bleeding on 12/17, was seen by [employer] who thought that bleeding could be secondary to endometrial cancer, in light of anticoagulation treatment referred for outpatient follow-up. She was stable for d/c today to rehab. Time for discharge 35 min Patient Condition at Discharge: Fair Plan - Discharge Summary Discharge Rx Participant: No New Discharge Prescriptions: New Apixaban [Eliquis] 5 mg PO BID 30 Days #60 tab Furosemide [Lasix] 40 mg PO DAILY 30 Days #30 tab NIFEdipine XL [Procardia XL] 30 mg PO DAILY 30 Days #30 tab Acetaminophen Tab [Tylenol] 650 mg PO Q6HR PRN tab PRN Reason: Mild Pain Or Fever > 100.5 Continue Isosorbide Mononitrate ER [Imdur] 30 mg PO DAILY tablet carvediloL [Coreg] 6.25 mg PO BID Ferrous Sulfate [Iron (65 MG Elemental)] 325 mg PO Q48H Discontinued Furosemide [Lasix] 40 mg PO TID hydrALAZINE HCL [Apresoline] 50 mg PO BID Nitrofurantoin Monohyd/M-Cryst [Macrobid] 100 mg PO BID No Action Linagliptin [Tradjenta] 5 mg PO DAILY Insulin Lispro [humaLOG Kwikpen] See Protocol SQ ACHS allopurinoL [Zyloprim] 100 mg PO DAILY sitaGLIPtin [Januvia] 50 mg PO DAILY Discharge Medication List allopurinoL [Zyloprim] 100 mg PO DAILY 12/16/20 [History] Linagliptin [Tradjenta] 5 mg PO DAILY 08/02/21 [History] Isosorbide Mononitrate ER [Imdur] 30 mg PO DAILY tablet 08/09/21 [Rx] Ferrous Sulfate [Iron (65 MG Elemental)] 325 mg PO Q48H 10/11/21 [History] Insulin Lispro [humaLOG Kwikpen] See Protocol SQ ACHS 12/10/21 [History] carvediloL [Coreg] 6.25 mg PO BID 12/10/21 [History] sitaGLIPtin [Januvia] 50 mg PO DAILY 12/10/21 [History] Acetaminophen Tab [Tylenol] 650 mg PO Q6HR PRN tab 12/20/21 [Rx] Apixaban [Eliquis] 5 mg PO BID 30 Days #60 tab 12/20/21 [Rx] Furosemide [Lasix] 40 mg PO DAILY 30 Days #30 tab 12/20/21 [Rx] NIFEdipine XL [Procardia XL] 30 mg PO DAILY 30 Days #30 tab 12/20/21 [Rx] Follow up Appointment(s)/Referral(s): Adela Johnson MD [STAFF PHYSICIAN] - 1 Week Richard Rose MD [STAFF PHYSICIAN] - 1 Week (oncology) Delroy Lawrence DO [Primary Care Provider] - 1-2 days
[2021-12-20 12:50] VITALS: RESP 20
[2021-12-20 12:55] VITALS: BP 137/81; PULSE 62; TEMP 98.2
[2021-12-20 13:51] LABS: Albumin 2.38 g/dL (3.80-4.90); Gamma Globulin 0.79 g/dL (0.70-1.50)
--- NOTE | 2021-12-20 15:52 | P.PN ---
Subjective Progress Note Date: 12/20/21 Principal diagnosis: endometrial carcinoma, positive ascitic fluid in follow-up today patient reports distended abdomen but much better after large volume ascites removal. She did not report any bleeding. She is going to [facility] as she does live alone. Objective - Vital Signs Vital signs: Vital Signs Temp 98.2 F 12/20/21 12:00 Pulse 62 12/20/21 12:00 Resp 20 12/20/21 08:00 BP 137/81 12/20/21 12:00 Pulse Ox 94 L 12/20/21 12:00 FiO2 Intake & Output 12/19/21 12/20/21 12/20/21 18:59 06:59 18:59 Intake Total 702 Output Total 400 200 Balance -400 -200 702 Weight 99.8 kg 101.2 kg Intake: Oral 702 Output: Urine 400 200 Other: Voiding Method External Catheter External Catheter Bedside Commode External Catheter # Voids 1 # Bowel Movements 1 - Constitutional General appearance: Present: cooperative, no acute distress, obese - EENT Eyes: Present: anicteric sclerae, EOMI ENT: Present: hearing grossly normal - Respiratory Details: respirations even and unlabored at rest - Gastrointestinal Gastrointestinal Comment(s): distant bowel sounds, hypoactive General gastrointestinal: Present: distended, soft - Neurologic Neurologic: Present: CNII-XII intact - Musculoskeletal Musculoskeletal: Present: generalized weakness - Psychiatric Psychiatric: Present: A&O x's 3, appropriate affect, intact judgment & insight - Labs CBC & Chem 7: 12/20/21 07:15 12/20/21 07:15 Labs: Abnormal Lab Results - Last 24 Hours (Table) 12/18/21 12/19/21 12/19/21 Range/Units 04:21 08:17 08:17 RBC (3.80-5.40) m/uL Hgb (11.4-16.0) gm/dL Hct (34.0-46.0) % MCV (80.0-100.0) fL MCHC (31.0-37.0) g/dL Lymphocytes # (1.0-4.8) k/uL Macrocytosis Chloride (98-107) mmol/L Carbon Dioxide (22-30) mmol/L BUN (7-17) mg/dL Creatinine (0.52-1.04) mg/dL Glucose (74-99) mg/dL POC Glucose (mg/dL) (70-110) mg/dL Calcium (8.4-10.2) mg/dL Total Protein (6.3-8.2) g/dL Albumin (3.5-5.0) g/dL Albumin (PEP) 2.38 L (3.80-4.90) g/dL CA 125 Antigen 487.0 H (0.0-30.1) U/mL RBC Folate 1,374 H (280 - 791) ng/mL Free Kim LC, Quant 7.14 H (0.33-1.94) mg/dL Free Lambda LC, Quant 3.74 H (0.57-2.63) mg/dL 12/19/21 12/19/21 12/20/21 Range/Units 16:34 20:50 05:51 RBC (3.80-5.40) m/uL Hgb (11.4-16.0) gm/dL Hct (34.0-46.0) % MCV (80.0-100.0) fL MCHC (31.0-37.0) g/dL Lymphocytes # (1.0-4.8) k/uL Macrocytosis Chloride (98-107) mmol/L Carbon Dioxide (22-30) mmol/L BUN (7-17) mg/dL Creatinine (0.52-1.04) mg/dL Glucose (74-99) mg/dL POC Glucose (mg/dL) 187 H 228 H 167 H (70-110) mg/dL Calcium (8.4-10.2) mg/dL Total Protein (6.3-8.2) g/dL Albumin (3.5-5.0) g/dL Albumin (PEP) (3.80-4.90) g/dL CA 125 Antigen (0.0-30.1) U/mL RBC Folate (280 - 791) ng/mL Free Kim LC, Quant (0.33-1.94) mg/dL Free Lambda LC, Quant (0.57-2.63) mg/dL 12/20/21 12/20/21 12/20/21 Range/Units 07:15 07:15 11:32 RBC 2.55 L (3.80-5.40) m/uL Hgb 8.2 L (11.4-16.0) gm/dL Hct 27.6 L (34.0-46.0) % MCV 108.5 H (80.0-100.0) fL MCHC 29.7 L (31.0-37.0) g/dL Lymphocytes # 0.6 L (1.0-4.8) k/uL Macrocytosis Marked A Chloride 113 H (98-107) mmol/L Carbon Dioxide 20 L (22-30) mmol/L BUN 82 H (7-17) mg/dL Creatinine 1.74 H (0.52-1.04) mg/dL Glucose 130 H (74-99) mg/dL POC Glucose (mg/dL) 186 H (70-110) mg/dL Calcium 7.8 L (8.4-10.2) mg/dL Total Protein 5.1 L (6.3-8.2) g/dL Albumin 2.5 L (3.5-5.0) g/dL Albumin (PEP) (3.80-4.90) g/dL CA 125 Antigen (0.0-30.1) U/mL RBC Folate (280 - 791) ng/mL Free Kim LC, Quant (0.33-1.94) mg/dL Free Lambda LC, Quant (0.57-2.63) mg/dL Assessment and Plan (1) Adenocarcinoma of the endometrium/uterus Current Visit: Yes Status: Chronic Priority: Medium Code(s): C54.1 - MALIGNANT NEOPLASM OF ENDOMETRIUM SNOMED Code(s): 700321253 (2) Ascites Current Visit: Yes Status: Acute Priority: High Code(s): R18.8 - OTHER ASCITES SNOMED Code(s): 455220696 (3) Chronic anemia Current Visit: Yes Status: Chronic Priority: Medium Code(s): D64.9 - ANEMIA, UNSPECIFIED SNOMED Code(s): 251019775 (4) Chronic kidney disease Current Visit: Yes Status: Chronic Priority: Medium Code(s): N18.9 - CHRONIC KIDNEY DISEASE, UNSPECIFIED SNOMED Code(s): 854169687 Plan: Reviewed with patient positive ascitic fluid. We discussed the likelihood that endometrial cancer is growing in a sheetlike fashion around possibly her bowels- she does complain of constipation-and the lining of her abdomen-both of which would be responsible for ascites. She verbalized understanding. She asked what can be done. Discussed with her that the Medical Oncologist would like to review previous path and notes from her [employer] Onc. Also, would like to confirm any biomarker, genetic/molecular testing. Those things will be ordered if they have not been already. Treatment would consist of systemic therapy with either intravenous chemotherapy or, if patient has positive biomarkers, there are some orals available as well. Told patient that she needs to focus on rehabilitation so that she can get to and from appointments. Plan for her to follow-up with medical oncologist in about 3-4 weeks where she can be assessed. Recommendations can be given based on the Physician's assessment and her performance status. Patient agreed with plan. We will get her a follow-up appointment. Did discuss the case with Radiation Oncologist. They recommend referral back to them for any symptoms.
== END 2021-12-20 15:35 | DRG 754 ==
LOC: EC 15:56 → 3SCARD 18:25
PROVIDERS: ADMIT Internal Medicine; ATTEND Internal Medicine
PROC: 30233N1 Transfusion of Nonautologous Red Blood Cells into Peripheral Vein, Percutaneous Approach (ICD-10-PCS; 2021-12-10)
PROC: 0W9G3ZX Drainage of Peritoneal Cavity, Percutaneous Approach, Diagnostic (ICD-10-PCS; principal; 2021-12-14)
DX: C54.1 Malignant neoplasm of endometrium (principal); I50.33 Acute on chronic diastolic (congestive) heart failure; I26.99 Other pulmonary embolism without acute cor pulmonale; R18.0 Malignant ascites; N17.9 Acute kidney failure, unspecified; E87.2 Acidosis; I13.0 Hypertensive heart and chronic kidney disease with heart failure and stage 1 through stage 4 chronic kidney disease, or unspecified chronic kidney disease; I31.3 Pericardial effusion (noninflammatory); N39.0 Urinary tract infection, site not specified; J98.11 Atelectasis; D62 Acute posthemorrhagic anemia; I27.29 Other secondary pulmonary hypertension; D63.1 Anemia in chronic kidney disease; I27.81 Cor pulmonale (chronic); E11.22 Type 2 diabetes mellitus with diabetic chronic kidney disease; N18.32 Chronic kidney disease, stage 3b; Z79.4 Long term (current) use of insulin; D63.0 Anemia in neoplastic disease; K59.00 Constipation, unspecified; E78.5 Hyperlipidemia, unspecified; N95.0 Postmenopausal bleeding; I08.1 Rheumatic disorders of both mitral and tricuspid valves; D75.89 Other specified diseases of blood and blood-forming organs; M10.9 Gout, unspecified; T50.2X5A Adverse effect of carbonic-anhydrase inhibitors, benzothiadiazides and other diuretics, initial encounter; E66.9 Obesity, unspecified; Z68.36 Body mass index [BMI] 36.0-36.9, adult; Z79.84 Long term (current) use of oral hypoglycemic drugs; Z79.899 Other long term (current) drug therapy; Z87.440 Personal history of urinary (tract) infections; Z92.3 Personal history of irradiation; Z91.81 History of falling; Z86.59 Personal history of other mental and behavioral disorders; Z71.3 Dietary counseling and surveillance; Z82.49 Family history of ischemic heart disease and other diseases of the circulatory system
CPT/HCPCS: 36415; 49083; 51798; 71046; 71250; 74022; 74176; 76705; 78580; 80048; 80053; 80074; 81001; 81050; 82042; 82272; 82570; 82607; 82747; 82784; 83516; 83540; 83550; 83605; 83615; 83690; 83735; 83880; 83883; 83921; 84156; 84157; 84165; 84300; 84484; 85025; 85027; 85045; 85379; 85610; 85730; 86304; 86334; 86850; 86900; 86901; 86920; 87040; 87086; 88108; 88305; 88341; 88342; 89050; 93005; 93306; 93970; 96361; 96374; 99285

== ENCOUNTER 2022-01-12 12:56 | Day surgery (SDC) | payer MEDICARE, BC ==
[2022-01-12 13:42] VITALS: BP 128/54; PULSE 62; RESP 16; TEMP 98
[2022-01-12 13:45] LABS: Mean Platelet Volume 7.8; Platelet Count 202 k/uL (150-450)
[2022-01-12 13:59] LABS: Glucose,Whole Blood 137 mg/dL (70-110)
--- NOTE | 2022-01-12 14:10 | US ---
Ultrasound-guided paracentesis. DATE OF EXAM: 01/12/2022 CLINICAL HISTORY: Ascites Preliminary imaging demonstrated only a very small amount of fluid. The patient deferred the procedur e. IMPRESSION: 1. Deferred paracentesis.
[2022-01-12 14:12] LABS: Prothrombin Time 10.9 sec (9.0-12.0)
== END 2022-01-12 14:10 | disposition home or self-care (01) ==
LOC: RADPROMAIN 12:56
PROVIDERS: ATTEND Radiology Radiation Oncology
DX: Z53.8 Procedure and treatment not carried out for other reasons (principal); R18.0 Malignant ascites; C54.1 Malignant neoplasm of endometrium; Z51.0 Encounter for antineoplastic radiation therapy
CPT/HCPCS: 36415; 76705; 85049; 85610

== ENCOUNTER 2022-03-07 12:12 | Inpatient (IN) | payer MEDICARE, BC ==
--- NOTE | 2022-03-07 12:34 | ED ---
General Adult HPI - General Chief complaint: Extremity Problem,Nontraumatic Stated complaint: edema Time Seen by Provider: 03/07/22 12:14 Source: patient, EMS Mode of arrival: EMS Limitations: no limitations - History of Present Illness Initial comments: Dictation was produced using [employer] dictation software. please excuse any grammatical, word or spelling errors. Chief Complaint: 66-year-old female with multiple comorbidities presents to emergency department after instructions from primary care doctor to be evaluated History of Present Illness: 66-year-old female she reports that she has history of uterine and abdominal cancer. Patient has developed swelling in her lower extremities. Her swelling has increased to the point where it's now all the way up to her abdomen. Patient states that she called her doctor, Dr. Corea who then instructed her to come to the emergency department to be evaluated. Patient has a symptoms at rest however when she ambulates she does. Complaint of shortness of breath. Patient denies any fever or constitutional symptoms. No nausea vomiting. No pain complaints. Chart review shows patient was most recently discharged from our facility back in November. She was admitted for 9 days. According to discharge summary patient was admitted for heart failure, new onset abdominal ascites, pericardial effusion. She did have a VQ scan that showed high probability for pulmonary embolism. She started on Ade coagulation at that time. Have paracentesis with removal of 4 L of fluid. 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 The ROS documented in this emergency department record has been reviewed and confirmed by me. Those systems with pertinent positive or negative responses have been documented in the HPI. All other systems are other negative and/or noncontributory. PHYSICAL EXAM: General Impression: Alert and oriented x3, not in acute distress HEENT: Normocephalic atraumatic, extra-ocular movements intact, pupils equal and reactive to light bilaterally, mucous membranes moist. Cardiovascular: Heart regular rate and rhythm Chest: Able to complete full sentences, no retractions, no tachypnea Abdomen: abdomen soft, non-tender, non-distended, no organomegaly Musculoskeletal: Pulses present and equal in all extremities, bilateral lower extremity lymphedema Motor: no focal deficits noted Neurological: CN II-XII grossly intact, no focal motor or sensory deficits noted Skin: Intact with no visualized rashes Psych: Normal affect and mood ED course: 66-year-old male presents emergency department for edema of the lower extremities which is now increased to the abdomen. Patient has multiple comorbidities. Vital signs upon arrival are within acceptable limits. Patient care was signed out to Dr. Song at 3 PM. During patient's ER stay there was unexpected EMR down time. Please see scanned in paper charts for further details of patient's emergency department course. - Related Data Home Medications Medication Instructions Recorded Confirmed allopurinoL [Zyloprim] 100 mg PO DAILY 12/16/20 03/07/22 Linagliptin [Tradjenta] 5 mg PO DAILY 08/02/21 03/07/22 Ferrous Sulfate [Iron (65 MG 325 mg PO DAILY 10/11/21 03/07/22 Elemental)] Insulin Lispro [humaLOG Kwikpen] See Protocol SQ ACHS 12/10/21 03/07/22 carvediloL [Coreg] 6.25 mg PO BID 12/10/21 03/07/22 HYDROcodone/APAP 5-325MG [Williams 1 tab PO TID PRN 01/03/22 03/07/22 5-325] Cholestyramine/Aspartame 4 gm PO DAILY 03/07/22 03/07/22 [Cholestyramine Light Packet] NIFEdipine XL [Procardia XL] 60 mg PO DAILY 03/07/22 03/07/22 Previous Rx's Medication Instructions Recorded Isosorbide Mononitrate ER [Imdur] 30 mg PO DAILY tablet 08/09/21 Apixaban [Eliquis] 5 mg PO BID 30 Days #60 tab 12/20/21 Furosemide [Lasix] 40 mg PO DAILY 30 Days #30 tab 12/20/21 Allergies Allergy/AdvReac Type Severity Reaction Status Date / Time No Known Allergies Allergy Verified 03/07/22 22:57 Review of Systems ROS Statement: Those systems with pertinent positive or pertinent negative responses have been documented in the HPI. ROS Other: All systems not noted in ROS Statement are negative. Past Medical History Past Medical History: Cancer, Heart Failure, Diabetes Mellitus, Hyperlipidemia, Hypertension, Renal Disease Additional Past Medical History / Comment(s): anemia, pulmonary edema, gout, weakness, uterine Ca, ascites History of Any Multi-Drug Resistant Organisms: None Reported Past Surgical History: No Surgical Hx Reported Past Anesthesia/Blood Transfusion Reactions: No Reported Reaction Past Psychological History: Depression Smoking Status: Never smoker Past Alcohol Use History: None Reported Past Drug Use History: None Reported - Past Family History Father Family Medical History: Myocardial Infarction (AL) Additional Family Medical History / Comment(s): father of AL at 58 years old Mother Additional Family Medical History / Comment(s): mother of old age at 95 years old General Exam Limitations: no limitations Course Vital Signs 03/07/22 03/07/22 03/07/22 12:18 22:00 23:00 Temperature 97.7 F Pulse Rate 63 78 90 Pulse Rate [ Pulse Oximetery ] Respiratory 18 17 16 Rate Blood Pressure 181/80 148/74 152/76 Blood Pressure [Left Arm] Blood Pressure [Right Arm] O2 Sat by Pulse 95 96 97 Oximetry 03/08/22 03/08/22 03/08/22 00:00 00:46 03:00 Temperature 98.1 F Pulse Rate 84 89 79 Pulse Rate [ Pulse Oximetery ] Respiratory 16 16 Rate Blood Pressure 161/74 192/81 177/77 Blood Pressure [Left Arm] Blood Pressure [Right Arm] O2 Sat by Pulse 97 95 96 Oximetry 03/08/22 03/08/22 03/08/22 04:00 05:00 06:00 Temperature Pulse Rate 81 70 69 Pulse Rate [ Pulse Oximetery ] Respiratory 16 17 Rate Blood Pressure 172/78 158/76 200/92 Blood Pressure [Left Arm] Blood Pressure [Right Arm] O2 Sat by Pulse 93 L Oximetry 03/08/22 03/08/22 03/08/22 06:43 08:00 08:11 Temperature 98.0 F Pulse Rate 71 Pulse Rate [ 66 66 Pulse Oximetery ] Respiratory 17 17 17 Rate Blood Pressure 193/97 Blood Pressure 200/90 [Left Arm] Blood Pressure 196/86 [Right Arm] O2 Sat by Pulse 96 92 L Oximetry 03/08/22 03/08/22 03/08/22 10:35 14:00 15:07 Temperature 98.0 F Pulse Rate Pulse Rate [ 70 60 Pulse Oximetery ] Respiratory 17 Rate Blood Pressure Blood Pressure [Left Arm] Blood Pressure 205/90 191/84 170/76 [Right Arm] O2 Sat by Pulse 93 L Oximetry Medical Decision Making - Lab Data Result diagrams: 03/09/22 06:32 03/09/22 06:32 Lab Results 09/06/22 09/06/22 09/06/22 Range/Units 14:15 14:15 14:15 WBC 5.0 (3.8-10.6) k/uL RBC 3.13 L (3.80-5.40) m/uL Hgb 9.8 L (11.4-16.0) gm/dL Hct 31.6 L (34.0-46.0) % MCV 100.8 H (80.0-100.0) fL MCH 31.3 (25.0-35.0) pg MCHC 31.1 (31.0-37.0) g/dL RDW 15.3 (11.5-15.5) % Plt Count 242 (150-450) k/uL MPV 7.6 Immature Gran % (Auto) % Absolute Nucleated RBC (0.00-0.00) X 10*3/uL Neutrophils % 83 % Lymphocytes % 8 % Monocytes % 6 % Eosinophils % 3 % Basophils % 1 % Immature Gran # (0.00-0.04) X 10*3/uL Neutrophils # 4.1 (1.3-7.7) k/uL Lymphocytes # 0.4 L (1.0-4.8) k/uL Monocytes # 0.3 (0-1.0) k/uL Eosinophils # 0.1 (0-0.7) k/uL Basophils # 0.0 (0-0.2) k/uL NRBC/100 WBC Diff (0.0-0.0) /100 WBCS Hypochromasia Marked Macrocytosis Slight PT (9.0-12.0) sec INR (<1.2) APTT (22.0-30.0) sec Sodium 137 (137-145) mmol/L Potassium 5.6 H (3.5-5.1) mmol/L Chloride 112 H (98-107) mmol/L Carbon Dioxide 15 L (22-30) mmol/L Anion Gap 10 mmol/L BUN 56 H (7-17) mg/dL Creatinine 1.59 H (0.52-1.04) mg/dL Est GFR (CKD-EPI)AfAm 39 (>60 ml/min/1.73 sqM) Est GFR (CKD-EPI)NonAf 34 (>60 ml/min/1.73 sqM) BUN/Creatinine Ratio (12.00-20.00) Ratio Glucose 133 H (74-99) mg/dL POC Glucose (mg/dL) (70-110) mg/dL POC Glu Accordion Maker ID Plasma Lactic Acid Octavio (0.7-2.0) mmol/L Calcium 8.1 L (8.4-10.2) mg/dL Magnesium 2.1 (1.6-2.3) mg/dL Total Bilirubin 0.3 (0.2-1.3) mg/dL AST 15 (14-36) U/L ALT 10 (4-34) U/L Alkaline Phosphatase 187 H (38-126) U/L Troponin I <0.012 (0.000-0.034) ng/mL NT-Pro-B Natriuret Pep pg/mL Total Protein 6.1 L (6.3-8.2) g/dL Albumin 3.3 L (3.5-5.0) g/dL Globulin 2.8 g/dL Albumin/Globulin Ratio 1.2 CA 125 Antigen Cancelled Urine Color Urine Appearance (Clear) Urine pH (5.0-8.0) Ur Specific [place] (1.001-1.035) Urine Protein (Negative) Urine Glucose (UA) (Negative) Urine Ketones (Negative) Urine Blood (Negative) Urine Nitrite (Negative) Urine Bilirubin (Negative) Urine Urobilinogen (<2.0) mg/dL Ur Leukocyte Esterase (Negative) Urine RBC (0-5) /hpf Urine WBC (0-5) /hpf Ur Squamous Epith Cells (0-4) /hpf Hyaline Casts (0-2) /lpf Urine Mucus (None) /hpf 03/07/22 03/07/22 03/07/22 Range/Units 14:15 14:15 14:15 WBC (3.8-10.6) k/uL RBC (3.80-5.40) m/uL Hgb (11.4-16.0) gm/dL Hct (34.0-46.0) % MCV (80.0-100.0) fL MCH (25.0-35.0) pg MCHC (31.0-37.0) g/dL RDW (11.5-15.5) % Plt Count (150-450) k/uL MPV Immature Gran % (Auto) % Absolute Nucleated RBC (0.00-0.00) X 10*3/uL Neutrophils % % Lymphocytes % % Monocytes % % Eosinophils % % Basophils % % Immature Gran # (0.00-0.04) X 10*3/uL Neutrophils # (1.3-7.7) k/uL Lymphocytes # (1.0-4.8) k/uL Monocytes # (0-1.0) k/uL Eosinophils # (0-0.7) k/uL Basophils # (0-0.2) k/uL NRBC/100 WBC Diff (0.0-0.0) /100 WBCS Hypochromasia Macrocytosis PT 10.6 (9.0-12.0) sec INR 1.0 (<1.2) APTT 27.1 (22.0-30.0) sec Sodium (137-145) mmol/L Potassium (3.5-5.1) mmol/L Chloride (98-107) mmol/L Carbon Dioxide (22-30) mmol/L Anion Gap mmol/L BUN (7-17) mg/dL Creatinine (0.52-1.04) mg/dL Est GFR (CKD-EPI)AfAm (>60 ml/min/1.73 sqM) Est GFR (CKD-EPI)NonAf (>60 ml/min/1.73 sqM) BUN/Creatinine Ratio (12.00-20.00) Ratio Glucose (74-99) mg/dL POC Glucose (mg/dL) (70-110) mg/dL POC Glu Accordion Maker ID Plasma Lactic Acid Octavio 0.7 (0.7-2.0) mmol/L Calcium (8.4-10.2) mg/dL Magnesium (1.6-2.3) mg/dL Total Bilirubin (0.2-1.3) mg/dL AST (14-36) U/L ALT (4-34) U/L Alkaline Phosphatase (38-126) U/L Troponin I (0.000-0.034) ng/mL NT-Pro-B Natriuret Pep 73694 pg/mL Total Protein (6.3-8.2) g/dL Albumin (3.5-5.0) g/dL Globulin g/dL Albumin/Globulin Ratio CA 125 Antigen Urine Color Urine Appearance (Clear) Urine pH (5.0-8.0) Ur Specific [place] (1.001-1.035) Urine Protein (Negative) Urine Glucose (UA) (Negative) Urine Ketones (Negative) Urine Blood (Negative) Urine Nitrite (Negative) Urine Bilirubin (Negative) Urine Urobilinogen (<2.0) mg/dL Ur Leukocyte Esterase (Negative) Urine RBC (0-5) /hpf Urine WBC (0-5) /hpf Ur Squamous Epith Cells (0-4) /hpf Hyaline Casts (0-2) /lpf Urine Mucus (None) /hpf 03/07/22 03/07/22 03/08/22 Range/Units 14:15 16:00 09:23 WBC 6.8 (3.8-10.6) k/uL RBC 3.22 L (3.80-5.40) m/uL Hgb 10.0 L (11.4-16.0) gm/dL Hct 32.3 L (34.0-46.0) % MCV 100.1 H (80.0-100.0) fL MCH 31.1 (25.0-35.0) pg MCHC 31.1 (31.0-37.0) g/dL RDW 15.4 (11.5-15.5) % Plt Count 271 (150-450) k/uL MPV 8.2 Immature Gran % (Auto) % Absolute Nucleated RBC (0.00-0.00) X 10*3/uL Neutrophils % 81 % Lymphocytes % 7 % Monocytes % 8 % Eosinophils % 3 % Basophils % 1 % Immature Gran # (0.00-0.04) X 10*3/uL Neutrophils # 5.5 (1.3-7.7) k/uL Lymphocytes # 0.5 L (1.0-4.8) k/uL Monocytes # 0.5 (0-1.0) k/uL Eosinophils # 0.2 (0-0.7) k/uL Basophils # 0.0 (0-0.2) k/uL NRBC/100 WBC Diff (0.0-0.0) /100 WBCS Hypochromasia Moderate Macrocytosis Slight PT (9.0-12.0) sec INR (<1.2) APTT (22.0-30.0) sec Sodium (137-145) mmol/L Potassium (3.5-5.1) mmol/L Chloride (98-107) mmol/L Carbon Dioxide (22-30) mmol/L Anion Gap mmol/L BUN (7-17) mg/dL Creatinine (0.52-1.04) mg/dL Est GFR (CKD-EPI)AfAm (>60 ml/min/1.73 sqM) Est GFR (CKD-EPI)NonAf (>60 ml/min/1.73 sqM) BUN/Creatinine Ratio (12.00-20.00) Ratio Glucose (74-99) mg/dL POC Glucose (mg/dL) (70-110) mg/dL POC Glu Accordion Maker ID Plasma Lactic Acid Octavio (0.7-2.0) mmol/L Calcium (8.4-10.2) mg/dL Magnesium (1.6-2.3) mg/dL Total Bilirubin (0.2-1.3) mg/dL AST (14-36) U/L ALT (4-34) U/L Alkaline Phosphatase (38-126) U/L Troponin I (0.000-0.034) ng/mL NT-Pro-B Natriuret Pep pg/mL Total Protein (6.3-8.2) g/dL Albumin (3.5-5.0) g/dL Globulin g/dL Albumin/Globulin Ratio CA 125 Antigen 699.0 H Urine Color Light Yellow Urine Appearance Clear (Clear) Urine pH 6.0 (5.0-8.0) Ur Specific [place] 1.011 (1.001-1.035) Urine Protein 3+ H (Negative) Urine Glucose (UA) Trace H (Negative) Urine Ketones Negative (Negative) Urine Blood Small H (Negative) Urine Nitrite Negative (Negative) Urine Bilirubin Negative (Negative) Urine Urobilinogen <2.0 (<2.0) mg/dL Ur Leukocyte Esterase Small H (Negative) Urine RBC 9 H (0-5) /hpf Urine WBC 22 H (0-5) /hpf Ur Squamous Epith Cells <1 (0-4) /hpf Hyaline Casts 4 H (0-2) /lpf Urine Mucus Rare H (None) /hpf 03/08/22 03/08/22 03/08/22 Range/Units 09:23 13:18 14:05 WBC (3.8-10.6) k/uL RBC (3.80-5.40) m/uL Hgb (11.4-16.0) gm/dL Hct (34.0-46.0) % MCV (80.0-100.0) fL MCH (25.0-35.0) pg MCHC (31.0-37.0) g/dL RDW (11.5-15.5) % Plt Count (150-450) k/uL MPV Immature Gran % (Auto) % Absolute Nucleated RBC (0.00-0.00) X 10*3/uL Neutrophils % % Lymphocytes % % Monocytes % % Eosinophils % % Basophils % % Immature Gran # (0.00-0.04) X 10*3/uL Neutrophils # (1.3-7.7) k/uL Lymphocytes # (1.0-4.8) k/uL Monocytes # (0-1.0) k/uL Eosinophils # (0-0.7) k/uL Basophils # (0-0.2) k/uL NRBC/100 WBC Diff (0.0-0.0) /100 WBCS Hypochromasia Macrocytosis PT (9.0-12.0) sec INR (<1.2) APTT (22.0-30.0) sec Sodium 139 (137-145) mmol/L Potassium 6.2 H* (3.5-5.1) mmol/L Chloride 114 H (98-107) mmol/L Carbon Dioxide 15 L (22-30) mmol/L Anion Gap 10 mmol/L BUN 51 H (7-17) mg/dL Creatinine 1.39 H (0.52-1.04) mg/dL Est GFR (CKD-EPI)AfAm 46 (>60 ml/min/1.73 sqM) Est GFR (CKD-EPI)NonAf 40 (>60 ml/min/1.73 sqM) BUN/Creatinine Ratio (12.00-20.00) Ratio Glucose 113 H (74-99) mg/dL POC Glucose (mg/dL) 175 H (70-110) mg/dL POC Glu Accordion Maker ID Lesli Sullivan Plasma Lactic Acid Octavio (0.7-2.0) mmol/L Calcium 8.4 (8.4-10.2) mg/dL Magnesium 2.1 (1.6-2.3) mg/dL Total Bilirubin 0.6 (0.2-1.3) mg/dL AST 22 (14-36) U/L ALT 9 (4-34) U/L Alkaline Phosphatase 183 H (38-126) U/L Troponin I <0.012 (0.000-0.034) ng/mL NT-Pro-B Natriuret Pep pg/mL Total Protein 6.2 L (6.3-8.2) g/dL Albumin 3.2 L (3.5-5.0) g/dL Globulin 3.0 g/dL Albumin/Globulin Ratio 1.1 CA 125 Antigen Cancelled Urine Color Urine Appearance (Clear) Urine pH (5.0-8.0) Ur Specific [place] (1.001-1.035) Urine Protein (Negative) Urine Glucose (UA) (Negative) Urine Ketones (Negative) Urine Blood (Negative) Urine Nitrite (Negative) Urine Bilirubin (Negative) Urine Urobilinogen (<2.0) mg/dL Ur Leukocyte Esterase (Negative) Urine RBC (0-5) /hpf Urine WBC (0-5) /hpf Ur Squamous Epith Cells (0-4) /hpf Hyaline Casts (0-2) /lpf Urine Mucus (None) /hpf 03/08/22 03/08/22 03/08/22 Range/Units 17:26 20:15 20:39 WBC (3.8-10.6) k/uL RBC (3.80-5.40) m/uL Hgb (11.4-16.0) gm/dL Hct (34.0-46.0) % MCV (80.0-100.0) fL MCH (25.0-35.0) pg MCHC (31.0-37.0) g/dL RDW (11.5-15.5) % Plt Count (150-450) k/uL MPV Immature Gran % (Auto) % Absolute Nucleated RBC (0.00-0.00) X 10*3/uL Neutrophils % % Lymphocytes % % Monocytes % % Eosinophils % % Basophils % % Immature Gran # (0.00-0.04) X 10*3/uL Neutrophils # (1.3-7.7) k/uL Lymphocytes # (1.0-4.8) k/uL Monocytes # (0-1.0) k/uL Eosinophils # (0-0.7) k/uL Basophils # (0-0.2) k/uL NRBC/100 WBC Diff (0.0-0.0) /100 WBCS Hypochromasia Macrocytosis PT (9.0-12.0) sec INR (<1.2) APTT (22.0-30.0) sec Sodium 138 (137-145) mmol/L Potassium 5.3 H (3.5-5.1) mmol/L Chloride 114 H (98-107) mmol/L Carbon Dioxide 16 L (22-30) mmol/L Anion Gap 8 mmol/L BUN 49 H (7-17) mg/dL Creatinine 1.39 H (0.52-1.04) mg/dL Est GFR (CKD-EPI)AfAm 46 (>60 ml/min/1.73 sqM) Est GFR (CKD-EPI)NonAf 40 (>60 ml/min/1.73 sqM) BUN/Creatinine Ratio (12.00-20.00) Ratio Glucose 142 H (74-99) mg/dL POC Glucose (mg/dL) 132 H 154 H (70-110) mg/dL POC Glu Accordion Maker ID Melba Alonzo Luis E Alisson Plasma Lactic Acid Octavio (0.7-2.0) mmol/L Calcium 8.1 L (8.4-10.2) mg/dL Magnesium (1.6-2.3) mg/dL Total Bilirubin (0.2-1.3) mg/dL AST (14-36) U/L ALT (4-34) U/L Alkaline Phosphatase (38-126) U/L Troponin I (0.000-0.034) ng/mL NT-Pro-B Natriuret Pep pg/mL Total Protein (6.3-8.2) g/dL Albumin (3.5-5.0) g/dL Globulin g/dL Albumin/Globulin Ratio CA 125 Antigen Urine Color Urine Appearance (Clear) Urine pH (5.0-8.0) Ur Specific [place] (1.001-1.035) Urine Protein (Negative) Urine Glucose (UA) (Negative) Urine Ketones (Negative) Urine Blood (Negative) Urine Nitrite (Negative) Urine Bilirubin (Negative) Urine Urobilinogen (<2.0) mg/dL Ur Leukocyte Esterase (Negative) Urine RBC (0-5) /hpf Urine WBC (0-5) /hpf Ur Squamous Epith Cells (0-4) /hpf Hyaline Casts (0-2) /lpf Urine Mucus (None) /hpf 03/09/22 03/09/22 03/09/22 Range/Units 06:32 06:32 07:17 WBC 5.97 (3.8-10.6) k/uL RBC 2.70 L (3.80-5.40) m/uL Hgb 8.0 L (11.4-16.0) gm/dL Hct 26.7 L (34.0-46.0) % MCV 98.9 H (80.0-100.0) fL MCH 29.6 (25.0-35.0) pg MCHC 30.0 L (31.0-37.0) g/dL RDW 14.9 H (11.5-15.5) % Plt Count 257 (150-450) k/uL MPV 9.9 Immature Gran % (Auto) 0.3 % Absolute Nucleated RBC 0 (0.00-0.00) X 10*3/uL Neutrophils % 80.4 % Lymphocytes % 8.4 % Monocytes % 7.7 % Eosinophils % 2.2 % Basophils % 1.0 % Immature Gran # 0.02 (0.00-0.04) X 10*3/uL Neutrophils # 4.80 (1.3-7.7) k/uL Lymphocytes # 0.50 L (1.0-4.8) k/uL Monocytes # 0.46 (0-1.0) k/uL Eosinophils # 0.13 (0-0.7) k/uL Basophils # 0.06 (0-0.2) k/uL NRBC/100 WBC Diff 0 (0.0-0.0) /100 WBCS Hypochromasia Macrocytosis PT (9.0-12.0) sec INR (<1.2) APTT (22.0-30.0) sec Sodium 141 (137-145) mmol/L Potassium 5.5 (3.5-5.1) mmol/L Chloride 114 H (98-107) mmol/L Carbon Dioxide 18.5 L (22-30) mmol/L Anion Gap 8.60 L mmol/L BUN 46.9 H (7-17) mg/dL Creatinine 1.5 (0.52-1.04) mg/dL Est GFR (CKD-EPI)AfAm 41.0 L (>60 ml/min/1.73 sqM) Est GFR (CKD-EPI)NonAf 35.4 L (>60 ml/min/1.73 sqM) BUN/Creatinine Ratio 30.86 H (12.00-20.00) Ratio Glucose 127 H (74-99) mg/dL POC Glucose (mg/dL) 129 H (70-110) mg/dL POC Glu Accordion Maker ID Melba Alonzo Plasma Lactic Acid Octavio (0.7-2.0) mmol/L Calcium 7.9 L (8.4-10.2) mg/dL Magnesium 2.2 (1.6-2.3) mg/dL Total Bilirubin <0.15 L (0.2-1.3) mg/dL AST 11 L (14-36) U/L ALT 7 L (4-34) U/L Alkaline Phosphatase 141 H (38-126) U/L Troponin I (0.000-0.034) ng/mL NT-Pro-B Natriuret Pep pg/mL Total Protein 4.5 L (6.3-8.2) g/dL Albumin 2.5 L (3.5-5.0) g/dL Globulin 2.0 g/dL Albumin/Globulin Ratio 1.27 L CA 125 Antigen Urine Color Urine Appearance (Clear) Urine pH (5.0-8.0) Ur Specific [place] (1.001-1.035) Urine Protein (Negative) Urine Glucose (UA) (Negative) Urine Ketones (Negative) Urine Blood (Negative) Urine Nitrite (Negative) Urine Bilirubin (Negative) Urine Urobilinogen (<2.0) mg/dL Ur Leukocyte Esterase (Negative) Urine RBC (0-5) /hpf Urine WBC (0-5) /hpf Ur Squamous Epith Cells (0-4) /hpf Hyaline Casts (0-2) /lpf Urine Mucus (None) /hpf 03/09/22 Range/Units 11:20 WBC (3.8-10.6) k/uL RBC (3.80-5.40) m/uL Hgb (11.4-16.0) gm/dL Hct (34.0-46.0) % MCV (80.0-100.0) fL MCH (25.0-35.0) pg MCHC (31.0-37.0) g/dL RDW (11.5-15.5) % Plt Count (150-450) k/uL MPV Immature Gran % (Auto) % Absolute Nucleated RBC (0.00-0.00) X 10*3/uL Neutrophils % % Lymphocytes % % Monocytes % % Eosinophils % % Basophils % % Immature Gran # (0.00-0.04) X 10*3/uL Neutrophils # (1.3-7.7) k/uL Lymphocytes # (1.0-4.8) k/uL Monocytes # (0-1.0) k/uL Eosinophils # (0-0.7) k/uL Basophils # (0-0.2) k/uL NRBC/100 WBC Diff (0.0-0.0) /100 WBCS Hypochromasia Macrocytosis PT (9.0-12.0) sec INR (<1.2) APTT (22.0-30.0) sec Sodium (137-145) mmol/L Potassium (3.5-5.1) mmol/L Chloride (98-107) mmol/L Carbon Dioxide (22-30) mmol/L Anion Gap mmol/L BUN (7-17) mg/dL Creatinine (0.52-1.04) mg/dL Est GFR (CKD-EPI)AfAm (>60 ml/min/1.73 sqM) Est GFR (CKD-EPI)NonAf (>60 ml/min/1.73 sqM) BUN/Creatinine Ratio (12.00-20.00) Ratio Glucose (74-99) mg/dL POC Glucose (mg/dL) 148 H (70-110) mg/dL POC Glu Accordion Maker ID Melba Alonzo Plasma Lactic Acid Octavio (0.7-2.0) mmol/L Calcium (8.4-10.2) mg/dL Magnesium (1.6-2.3) mg/dL Total Bilirubin (0.2-1.3) mg/dL AST (14-36) U/L ALT (4-34) U/L Alkaline Phosphatase (38-126) U/L Troponin I (0.000-0.034) ng/mL NT-Pro-B Natriuret Pep pg/mL Total Protein (6.3-8.2) g/dL Albumin (3.5-5.0) g/dL Globulin g/dL Albumin/Globulin Ratio CA 125 Antigen Urine Color Urine Appearance (Clear) Urine pH (5.0-8.0) Ur Specific [place] (1.001-1.035) Urine Protein (Negative) Urine Glucose (UA) (Negative) Urine Ketones (Negative) Urine Blood (Negative) Urine Nitrite (Negative) Urine Bilirubin (Negative) Urine Urobilinogen (<2.0) mg/dL Ur Leukocyte Esterase (Negative) Urine RBC (0-5) /hpf Urine WBC (0-5) /hpf Ur Squamous Epith Cells (0-4) /hpf Hyaline Casts (0-2) /lpf Urine Mucus (None) /hpf Disposition Clinical Impression: Swelling Disposition: ADMITTED IP TO THIS HOSP Condition: Fair
[2022-03-07] MEDS ORDERED: FUROSEMIDE 10 MG/ML 4 ML VIAL IV STA (19:32)
[2022-03-07 22:13] LABS: Basophils % (A) 1 %; Eosinophils # (A) 0.1 k/uL (0-0.7); Eosinophils % (A) 3 %; HCT 31.6 % (34.0-46.0); HGB 9.8 gm/dL (11.4-16.0); Hypochromasia Marked; Lymphocytes # (A) 0.4 k/uL (1.0-4.8); Lymphocytes % (A) 8 %; MCH 31.3 pg (25.0-35.0); MCHC 31.1 g/dL (31.0-37.0); MCV 100.8 fL (80.0-100.0); Macrocytosis Slight; Mean Platelet Volume 7.6; Monocytes # (A) 0.3 k/uL (0-1.0); Monocytes % (A) 6 %; Neutrophils # (A) 4.1 k/uL (1.3-7.7); Neutrophils % (A) 83 %; Platelet Count 242 k/uL (150-450); RBC 3.13 m/uL (3.80-5.40); RDW 15.3 % (11.5-15.5)
[2022-03-07 22:29] LABS: Partial Thromboplastin Time 27.1 sec (22.0-30.0); Prothrombin Time 10.6 sec (9.0-12.0)
[2022-03-07 22:30] LABS: Appearance,Urine Clear (Clear); Bilirubin,Urine Negative (Negative); Blood,Urine Small (Negative); Color,Urine Light Yellow; Glucose,Urine (UA) Trace (Negative); Hyaline Casts,Urine 4 /lpf (0-2); Ketones,Urine Negative (Negative); Leukocyte Esterase,Urine Small (Negative); Mucus,Urine Rare /hpf; Nitrite,Urine Negative (Negative); Protein,Urine 3+ (Negative); RBC,Urine 9 /hpf (0-5); Specific Gravity,Urine 1.011 (1.001-1.035); Squamous Epithelial Cell,Urine <1 /hpf (0-4); Urobilinogen,Urine <2.0 mg/dL (<2.0); WBC,Urine 22 /hpf (0-5)
[2022-03-08 00:36] LABS: ALT 10 U/L (4-34); AST 15 U/L (14-36); African American GFR (CKD) 39 (>60 ml/min/1.73 sqM); Albumin 3.3 g/dL (3.5-5.0); Albumin/Globulin Ratio 1.2; Alkaline Phosphatase 187 U/L (38-126); Anion Gap 10 mmol/L; Blood Urea Nitrogen 56 mg/dL (7-17); Calcium 8.1 mg/dL (8.4-10.2); Carbon Dioxide 15 mmol/L (22-30); Chloride 112 mmol/L (98-107); Globulin 2.8 g/dL; Glucose 133 mg/dL (74-99); Magnesium 2.1 mg/dL (1.6-2.3); Non-African American GFR(CKD) 34 (>60 ml/min/1.73 sqM); Potassium 5.6 mmol/L (3.5-5.1); Sodium 137 mmol/L (137-145); Total Bilirubin 0.3 mg/dL (0.2-1.3); Total Protein 6.1 g/dL (6.3-8.2)
[2022-03-08] MEDS ORDERED: NALOXONE 0.4 MG/ML 1 ML VIAL IV PRN (00:43)
[2022-03-08] MEDS ORDERED: ACETAMINOPHEN TAB 325 MG TAB PO PRN (00:45)
[2022-03-08] MEDS ORDERED: MELATONIN 3 MG TABLET PO PRN (00:45)
[2022-03-08] MEDS ORDERED: ONDANSETRON 4 MG/2 ML VIAL IVP PRN (00:45)
[2022-03-08] MEDS ORDERED: CALCIUM CARBONATE 500 MG CHEWABLE PO PRN (00:45)
[2022-03-08] MEDS ORDERED: ALPRAZolam 0.25 MG TAB PO PRN (00:45)
[2022-03-08] MEDS ORDERED: DOCUSATE 100 MG CAP PO PRN (00:45)
--- NOTE | 2022-03-08 01:16 | P.HPIM ---
History of Present Illness H&P Date: 03/07/22 Chief Complaint: difficulty in breathing , incrase abd girth 66 year old female with uterine cancer, diastolic CHF preserved LVEF 50-55% she comes in with increase abd girth resulting in difficulty breathing. she has history of uterine cancer s/p radiation therapy and plans to start chemotherapy soon. she was recently hospitalized back in November 2021 for fluid overload, asc ites (paracentesis took 4 L) and at that time found to have elevated d dimer, VQ scan showed high probability for PE ,and was discharged on Eliquis which she continues to take it now. she deneis ANY GI bleeding . today she went to her PCP for evaluation and was told to go to the ED for evaluation due to difficulty breathing and increase peripheral edema andabd ascites. she denies any chest pain , palpitations, sick contact, deneis any nausea vomiting, or abd pain . workup in the ED showed CYNDEE , elevated pro BNP, negative trops , elevated D dimer (chronic ) patient already on eliquis Hgb 9.8 K 5.6 Review of Systems Pertinent positives as noted in HPI. All other systems were reviewed and are negative Past Medical History Past Medical History: Cancer, Heart Failure, Diabetes Mellitus, Hyperlipidemia, Hypertension, Renal Disease Additional Past Medical History / Comment(s): anemia, pulmonary edema, gout, weakness, uterine Ca, ascites History of Any Multi-Drug Resistant Organisms: None Reported Past Surgical History: No Surgical Hx Reported Past Anesthesia/Blood Transfusion Reactions: No Reported Reaction Past Psychological History: Depression Smoking Status: Never smoker Past Alcohol Use History: None Reported Past Drug Use History: None Reported - Past Family History Father Family Medical History: Myocardial Infarction ([place]) Additional Family Medical History / Comment(s): father of [place] at 58 years old Mother Additional Family Medical History / Comment(s): mother of old age at 95 years old Medications and Allergies Home Medications Medication Instructions Recorded Confirmed Type allopurinoL [Zyloprim] 100 mg PO DAILY 12/16/20 03/07/22 History Linagliptin [Tradjenta] 5 mg PO DAILY 08/02/21 03/07/22 History Isosorbide Mononitrate ER [Imdur] 30 mg PO DAILY tablet 08/09/21 03/07/22 Rx Ferrous Sulfate [Iron (65 MG 325 mg PO DAILY 10/11/21 03/07/22 History Elemental)] Insulin Lispro [humaLOG Kwikpen] See Protocol SQ ACHS 12/10/21 03/07/22 History carvediloL [Coreg] 6.25 mg PO BID 12/10/21 03/07/22 History Apixaban [Eliquis] 5 mg PO BID 30 Days #60 tab 12/20/21 03/07/22 Rx Furosemide [Lasix] 40 mg PO DAILY 30 Days #30 tab 12/20/21 03/07/22 Rx HYDROcodone/APAP 5-325MG [[place] 1 tab PO TID PRN 01/03/22 03/07/22 History 5-325] Cholestyramine/Aspartame 4 gm PO DAILY 03/07/22 03/07/22 History [Cholestyramine Light Packet] NIFEdipine XL [Procardia XL] 60 mg PO DAILY 03/07/22 03/07/22 History Allergies Allergy/AdvReac Type Severity Reaction Status Date / Time No Known Allergies Allergy Verified 03/07/22 22:57 Physical Exam Vitals: Vital Signs Temp Pulse Resp BP Pulse Ox 03/07/22 12:18 97.7 F 63 18 181/80 95 Intake and Output 03/07/22 03/07/22 03/07/22 06:59 14:59 22:59 Other: Weight 122.47 kg Constitutional: sick looking with wasting , Eyes: Anicteric sclerae, moist conjunctiva, Pupils equal round reactive to light ENMT: NC/AT Oropharynx clear, no erythema, or exudates Neck: Supple, no masses, or JVD No carotid bruits No thyromegaly Lungs: Clear to auscultation Clear to percussion Normal respiratory effort, no accessory muscle use Cardiovascular: Heart regular in rate and rhythm, No murmurs, gallops, or rubs +3 bilateral peripheral edema Abdominal: significantly distended , with edema of the skin , positive transmitted thrill Nontender, no guarding, rebound or rigidity Abdomen moving with respiration Normoactive bowel sounds No palpable mass No abdominal wall hernia noted Skin: chronic skin changes bilateral lower extremities , otherise Normal temperature, tone, texture, turgor Extremities: No digital cyanosis No clubbing Pedal pulses difficult to detect and symmetrical capillary refill immediate Radial pulses intact and symmetrical No calf tenderness Psychiatric: Alert and oriented to person, place and time Appropriate affect fair judgement Neuro Muscles Strength 4/5 in all 4 extremities Sensation to light touch grossly present throughout Cranial nerves II-XII grossly intact No focal sensory deficits Lymphatics: no palpable cervical or supraclavicular , or inguinal lymph nodes Results CBC & Chem 7: 03/07/22 14:15 03/07/22 14:15 Assessment and Plan Assessment: acute diastolic CHF exacerbation recurrent abd ascites , secondary to uterine cancer paracentesis November 2021 cytology showed adenocarcinoma supportive care IR for paracentesis , theraputic IV lasix cardiac diet monitor vital signs fall precautions OP follow up for uterine cancer elevated D dimer with recent diagnosis of high probability PE , continue with eliquis chronic conditions DM insulin sliding scale hypertension uncontrolled , resume home BP meds, clonidine PRN for systolic blood pressure > 180 chronic anemia , vaginal bleeding occasional 2/2 uterine cancer full code DVT PPX on eliquis for PE
[2022-03-08] MEDS: HYDROcodone/APAP 5-325MG 1 EACH TAB PO PRN ×2 (01:43→11:04)
[2022-03-08] MEDS: cloNIDine HCL 0.1 MG TAB PO PRN ×3 (01:43→14:38)
[2022-03-08] MEDS: INSULIN ASPART (NovoLOG) 100 UNIT/ML VIAL SQ SCH ×4 (10:30→21:04)
[2022-03-08 10:54] LABS: Basophils % (A) 1 %; Eosinophils # (A) 0.2 k/uL (0-0.7); Eosinophils % (A) 3 %; HCT 32.3 % (34.0-46.0); Hypochromasia Moderate; Lymphocytes # (A) 0.5 k/uL (1.0-4.8); Lymphocytes % (A) 7 %; MCH 31.1 pg (25.0-35.0); MCHC 31.1 g/dL (31.0-37.0); MCV 100.1 fL (80.0-100.0); Macrocytosis Slight; Mean Platelet Volume 8.2; Monocytes # (A) 0.5 k/uL (0-1.0); Monocytes % (A) 8 %; Neutrophils # (A) 5.5 k/uL (1.3-7.7); Neutrophils % (A) 81 %; Platelet Count 271 k/uL (150-450); RBC 3.22 m/uL (3.80-5.40); RDW 15.4 % (11.5-15.5); WBC 6.8 k/uL (3.8-10.6)
[2022-03-08] MEDS: ISOSORBIDE MONONITRATE ER 30 MG TAB.ER.24H PO SCH (11:04)
[2022-03-08] MEDS: APIXABAN 5 MG TAB PO SCH ×2 (11:04→21:04)
[2022-03-08] MEDS: carvediloL 6.25 MG TAB PO SCH ×2 (11:04→21:04)
[2022-03-08 11:06] LABS: ALT 9 U/L (4-34); African American GFR (CKD) 46 (>60 ml/min/1.73 sqM); Albumin 3.2 g/dL (3.5-5.0); Albumin/Globulin Ratio 1.1; Anion Gap 10 mmol/L; Blood Urea Nitrogen 51 mg/dL (7-17); Calcium 8.4 mg/dL (8.4-10.2); Carbon Dioxide 15 mmol/L (22-30); Chloride 114 mmol/L (98-107); Glucose 113 mg/dL (74-99); Non-African American GFR(CKD) 40 (>60 ml/min/1.73 sqM); Sodium 139 mmol/L (137-145); Total Bilirubin 0.6 mg/dL (0.2-1.3); Total Protein 6.2 g/dL (6.3-8.2)
[2022-03-08 11:17] LABS: Potassium 6.2 mmol/L (3.5-5.1)
[2022-03-08 11:18] LABS: AST 22 U/L (14-36); Alkaline Phosphatase 183 U/L (38-126); Magnesium 2.1 mg/dL (1.6-2.3)
[2022-03-08] MEDS ORDERED: DEXTROSE 50% SYRINGE 50 ML IVP STA (11:31)
[2022-03-08] MEDS ORDERED: INSULIN REGULAR 100 UNIT/ML VIAL (IV) IV ONE (11:31)
[2022-03-08] MEDS ORDERED: SODIUM BICARB 8.4% 50 ML SYR (1 MEQ/ML) IV STA (11:32)
[2022-03-08] MEDS: allopurinoL 100 MG TAB PO SCH (12:45)
--- NOTE | 2022-03-08 13:11 | P.PN ---
Subjective Progress Note Date: 03/08/22 Patient still in significant pain, hypertensive. Significant ascites, pitting edema. Gen: awake, alert HEENT: normocephalic, atraumatic, good hearing acuity, moist mucous membranes Resp: good air exchange, breathing comfortably with no accessory muscle use CVS: good distal perfusion x 4, GI: Distended, diffusely TTP, ascites : no SPT, no CVAT, gonsalez catheter not present MSK: Bilateral pitting edema, no clubbing Neuro: non-focal, moving all extremities Psych: cooperative, euthymic mood Assessment/plan: Acute on chronic diastolic CHF exacerbation Recurrent abd ascites, secondary to uterine cancer -paracentesis November 2021 cytology showed adenocarcinoma -supportive care -IR for paracentesis , theraputic -IV lasix -cardiac diet -monitor vital signs -fall precautions -OP follow up for uterine cancer Elevated D dimer with recent diagnosis of high probability PE -continue with eliquis DM II hypertension uncontrolled , resume home BP meds, clonidine PRN for systolic blood pressure > 180 chronic anemia , vaginal bleeding occasional 2/2 uterine cancer Full code DVT PPX on eliquis for PE Objective - Vital Signs Vital signs: Vital Signs Temp 98.0 F 03/08/22 08:11 Pulse 66 03/08/22 08:11 Resp 17 03/08/22 08:11 BP 205/90 03/08/22 10:35 Pulse Ox 92 L 03/08/22 08:11 FiO2 Intake & Output 03/07/22 03/08/22 03/08/22 18:59 06:59 18:59 Weight 122.47 kg Other: Voiding Method External Catheter - Labs CBC & Chem 7: 03/08/22 09:23 03/08/22 09:23 Labs: Abnormal Lab Results - Last 24 Hours (Table) 03/07/22 03/07/22 03/07/22 Range/Units 14:15 14:15 16:00 RBC 3.13 L (3.80-5.40) m/uL Hgb 9.8 L (11.4-16.0) gm/dL Hct 31.6 L (34.0-46.0) % MCV 100.8 H (80.0-100.0) fL Lymphocytes # 0.4 L (1.0-4.8) k/uL Potassium 5.6 H (3.5-5.1) mmol/L Chloride 112 H (98-107) mmol/L Carbon Dioxide 15 L (22-30) mmol/L BUN 56 H (7-17) mg/dL Creatinine 1.59 H (0.52-1.04) mg/dL Glucose 133 H (74-99) mg/dL Calcium 8.1 L (8.4-10.2) mg/dL Alkaline Phosphatase 187 H (38-126) U/L Total Protein 6.1 L (6.3-8.2) g/dL Albumin 3.3 L (3.5-5.0) g/dL Urine Protein 3+ H (Negative) Urine Glucose (UA) Trace H (Negative) Urine Blood Small H (Negative) Ur Leukocyte Esterase Small H (Negative) Urine RBC 9 H (0-5) /hpf Urine WBC 22 H (0-5) /hpf Hyaline Casts 4 H (0-2) /lpf Urine Mucus Rare H (None) /hpf 03/08/22 03/08/22 Range/Units 09:23 09:23 RBC 3.22 L (3.80-5.40) m/uL Hgb 10.0 L (11.4-16.0) gm/dL Hct 32.3 L (34.0-46.0) % MCV 100.1 H (80.0-100.0) fL Lymphocytes # 0.5 L (1.0-4.8) k/uL Potassium 6.2 H* (3.5-5.1) mmol/L Chloride 114 H (98-107) mmol/L Carbon Dioxide 15 L (22-30) mmol/L BUN 51 H (7-17) mg/dL Creatinine 1.39 H (0.52-1.04) mg/dL Glucose 113 H (74-99) mg/dL Calcium (8.4-10.2) mg/dL Alkaline Phosphatase 183 H (38-126) U/L Total Protein 6.2 L (6.3-8.2) g/dL Albumin 3.2 L (3.5-5.0) g/dL Urine Protein (Negative) Urine Glucose (UA) (Negative) Urine Blood (Negative) Ur Leukocyte Esterase (Negative) Urine RBC (0-5) /hpf Urine WBC (0-5) /hpf Hyaline Casts (0-2) /lpf Urine Mucus (None) /hpf
[2022-03-08 14:17] LABS: Glucose,Whole Blood 175 mg/dL (70-110)
[2022-03-08] MEDS: SODIUM ZIRCONIUM CYCLOSILICATE 10 GM PACKET PO ONE ×2 (14:21→15:07)
[2022-03-08 17:29] LABS: Glucose,Whole Blood 132 mg/dL (70-110)
[2022-03-08 20:42] LABS: Glucose,Whole Blood 154 mg/dL (70-110)
[2022-03-08 21:04] LABS: African American GFR (CKD) 46 (>60 ml/min/1.73 sqM); Anion Gap 8 mmol/L; Blood Urea Nitrogen 49 mg/dL (7-17); Calcium 8.1 mg/dL (8.4-10.2); Carbon Dioxide 16 mmol/L (22-30); Chloride 114 mmol/L (98-107); Glucose 142 mg/dL (74-99); Non-African American GFR(CKD) 40 (>60 ml/min/1.73 sqM); Potassium 5.3 mmol/L (3.5-5.1); Sodium 138 mmol/L (137-145)
[2022-03-09] MEDS: HYDROcodone/APAP 5-325MG 1 EACH TAB PO PRN ×3 (04:30→21:07)
[2022-03-09 07:19] LABS: Glucose,Whole Blood 129 mg/dL (70-110)
[2022-03-09] MEDS: APIXABAN 5 MG TAB PO SCH ×3 (08:19→19:02)
[2022-03-09] MEDS: INSULIN ASPART (NovoLOG) 100 UNIT/ML VIAL SQ SCH ×4 (08:19→21:04)
[2022-03-09] MEDS: carvediloL 6.25 MG TAB PO SCH ×2 (09:43→21:04)
[2022-03-09] MEDS: allopurinoL 100 MG TAB PO SCH (09:43)
[2022-03-09] MEDS: ISOSORBIDE MONONITRATE ER 30 MG TAB.ER.24H PO SCH (09:43)
[2022-03-09 10:38] LABS: Basophils # (A) 0.06 X 10*3/uL (0.00-0.10); Eosinophils # (A) 0.13 X 10*3/uL (0.04-0.35); Eosinophils % (A) 2.2 %; HCT 26.7 % (37.2-46.3); Immature Grans, Automated 0.3 %; Lymphocytes % (A) 8.4 %; MCH 29.6 pg (27.0-32.0); MCV 98.9 fL (80.0-97.0); Mean Platelet Volume 9.9 fL (9.5-12.2); Monocytes # (A) 0.46 X 10*3/uL (0.20-1.00); Monocytes % (A) 7.7 %; NRBC Per 100 WBC 0 /100 WBCS (0.0-0.0); Neutrophils % (A) 80.4 %; Platelet Count 257 X 10*3/uL (140-440); RDW 14.9 % (11.5-14.5); WBC 5.97 X 10*3/uL (4.50-10.00)
[2022-03-09 10:51] LABS: ALT 7 U/L (8-44); AST 11 U/L (13-35); Albumin 2.5 g/dL (3.8-4.9); Albumin/Globulin Ratio 1.27 (1.60-3.17); Alkaline Phosphatase 141 U/L (41-126); BUN/Creat Ratio 30.86 Ratio (12.00-20.00); Blood Urea Nitrogen 46.9 mg/dL (9.0-27.0); Calcium 7.9 mg/dL (8.7-10.3); Carbon Dioxide 18.5 mmol/L (20.0-27.5); Chloride 114 mmol/L (96-109); Glucose 127 mg/dL (70-110); Magnesium 2.2 mg/dL (1.5-2.4); Non-African American GFR(CKD) 35.4 (60.0-200.0); Potassium 5.5 mmol/L (3.5-5.5); Sodium 141 mmol/L (135-145); Total Bilirubin <0.15 mg/dL (0.30-1.20); Total Protein 4.5 g/dL (6.2-8.2)
[2022-03-09 11:21] LABS: Glucose,Whole Blood 148 mg/dL (70-110)
--- NOTE | 2022-03-09 12:42 | P.PN ---
Subjective Progress Note Date: 03/09/22 Patients pain, BP have improved. Plan for paracentesis today. Gen: awake, alert HEENT: normocephalic, atraumatic, good hearing acuity, moist mucous membranes Resp: good air exchange, breathing comfortably with no accessory muscle use CVS: good distal perfusion x 4, GI: Distended, diffusely TTP, ascites : no SPT, no CVAT, gonsalez catheter not present MSK: Bilateral pitting edema, no clubbing Neuro: non-focal, moving all extremities Psych: cooperative, euthymic mood Assessment/plan: Acute on chronic diastolic CHF exacerbation Recurrent abd ascites, secondary to uterine cancer -paracentesis November 2021 cytology showed adenocarcinoma -supportive care -IR for paracentesis , theraputic -IV lasix -cardiac diet -monitor vital signs -fall precautions -OP follow up for uterine cancer Elevated D dimer with recent diagnosis of high probability PE -continue with eliquis DM II hypertension uncontrolled , resume home BP meds, clonidine PRN for systolic blood pressure > 180 chronic anemia , vaginal bleeding occasional 2/2 uterine cancer Full code DVT PPX on eliquis for PE Objective - Vital Signs Vital signs: Vital Signs Temp 98.3 F 03/09/22 11:35 Pulse 62 03/09/22 11:35 Resp 20 03/09/22 11:35 BP 164/66 03/09/22 11:35 Pulse Ox 93 L 03/09/22 11:35 FiO2 Intake & Output 03/08/22 03/09/22 03/09/22 18:59 06:59 18:59 Intake Total 480 Output Total 500 Balance -500 480 Weight 122.47 kg 124 kg Intake: Oral 480 Output: Urine 500 Other: Voiding Method External Catheter External Catheter - Labs CBC & Chem 7: 03/09/22 06:32 03/09/22 06:32 Labs: Abnormal Lab Results - Last 24 Hours (Table) 03/07/22 03/08/22 03/08/22 Range/Units 14:15 14:05 17:26 RBC (4.10-5.20) X 10*6/uL Hgb (12.0-15.0) g/dL Hct (37.2-46.3) % MCV (80.0-97.0) fL MCHC (32.0-37.0) g/dL RDW (11.5-14.5) % Lymphocytes # (0.90-5.00) X 10*3/uL Potassium (3.5-5.1) mmol/L Chloride (98-107) mmol/L Carbon Dioxide (22-30) mmol/L Anion Gap (10.00-18.00) mmol/L BUN (7-17) mg/dL Creatinine (0.52-1.04) mg/dL Est GFR (CKD-EPI)AfAm (60.0-200.0) Est GFR (CKD-EPI)NonAf (60.0-200.0) BUN/Creatinine Ratio (12.00-20.00) Ratio Glucose (74-99) mg/dL POC Glucose (mg/dL) 175 H 132 H (70-110) mg/dL Calcium (8.4-10.2) mg/dL Total Bilirubin (0.30-1.20) mg/dL AST (13-35) U/L ALT (8-44) U/L Alkaline Phosphatase (41-126) U/L Total Protein (6.2-8.2) g/dL Albumin (3.8-4.9) g/dL Albumin/Globulin Ratio (1.60-3.17) g/dL CA 125 Antigen 699.0 H (0.0-30.1) U/mL 03/08/22 03/08/22 03/09/22 Range/Units 20:15 20:39 06:32 RBC 2.70 L (4.10-5.20) X 10*6/uL Hgb 8.0 L (12.0-15.0) g/dL Hct 26.7 L (37.2-46.3) % MCV 98.9 H (80.0-97.0) fL MCHC 30.0 L (32.0-37.0) g/dL RDW 14.9 H (11.5-14.5) % Lymphocytes # 0.50 L (0.90-5.00) X 10*3/uL Potassium 5.3 H (3.5-5.1) mmol/L Chloride 114 H (98-107) mmol/L Carbon Dioxide 16 L (22-30) mmol/L Anion Gap (10.00-18.00) mmol/L BUN 49 H (7-17) mg/dL Creatinine 1.39 H (0.52-1.04) mg/dL Est GFR (CKD-EPI)AfAm (60.0-200.0) Est GFR (CKD-EPI)NonAf (60.0-200.0) BUN/Creatinine Ratio (12.00-20.00) Ratio Glucose 142 H (74-99) mg/dL POC Glucose (mg/dL) 154 H (70-110) mg/dL Calcium 8.1 L (8.4-10.2) mg/dL Total Bilirubin (0.30-1.20) mg/dL AST (13-35) U/L ALT (8-44) U/L Alkaline Phosphatase (41-126) U/L Total Protein (6.2-8.2) g/dL Albumin (3.8-4.9) g/dL Albumin/Globulin Ratio (1.60-3.17) g/dL CA 125 Antigen (0.0-30.1) U/mL 03/09/22 03/09/22 03/09/22 Range/Units 06:32 07:17 11:20 RBC (4.10-5.20) X 10*6/uL Hgb (12.0-15.0) g/dL Hct (37.2-46.3) % MCV (80.0-97.0) fL MCHC (32.0-37.0) g/dL RDW (11.5-14.5) % Lymphocytes # (0.90-5.00) X 10*3/uL Potassium (3.5-5.1) mmol/L Chloride 114 H (98-107) mmol/L Carbon Dioxide 18.5 L (22-30) mmol/L Anion Gap 8.60 L (10.00-18.00) mmol/L BUN 46.9 H (7-17) mg/dL Creatinine (0.52-1.04) mg/dL Est GFR (CKD-EPI)AfAm 41.0 L (60.0-200.0) Est GFR (CKD-EPI)NonAf 35.4 L (60.0-200.0) BUN/Creatinine Ratio 30.86 H (12.00-20.00) Ratio Glucose 127 H (74-99) mg/dL POC Glucose (mg/dL) 129 H 148 H (70-110) mg/dL Calcium 7.9 L (8.4-10.2) mg/dL Total Bilirubin <0.15 L (0.30-1.20) mg/dL AST 11 L (13-35) U/L ALT 7 L (8-44) U/L Alkaline Phosphatase 141 H (41-126) U/L Total Protein 4.5 L (6.2-8.2) g/dL Albumin 2.5 L (3.8-4.9) g/dL Albumin/Globulin Ratio 1.27 L (1.60-3.17) g/dL CA 125 Antigen (0.0-30.1) U/mL
[2022-03-09 16:38] LABS: Glucose,Whole Blood 231 mg/dL (70-110)
--- NOTE | 2022-03-09 18:30 | P.CONS ---
History of Present Illness - Reason for Consult Consult date: 03/08/22 Metastatic Endometrial - History of Present Illness Mrs. Guillen was originally referred to us in 2018 for anemia, however this appointment was cancelled and at the time per the EMR notes primary team did not wish to reschedule. Patient is now admitted with symptomatic anemia. She as a known diagnosis of endometrial biopsy confirmed poorly differentiated endometrial adenocarcinoma. She received radiation treatment as definitive treatment. Appears she is now receiving epogen for CKD (unknown stage) induced anemia per nephrology on 12/16/2021. She is macrocytic. Macrocytosis presented with worsening renal function in 2018 per trend of labs. Endometrial cancer was diagnosed in March of 2021, she follows with outside team. Medical history is also including hypertension, diabetes, and CKD. She presented with dysuria and treated for UTI and with symptomatic anemia received a unit of PRBC. On admission she complained of abdominal cramps, abdominal distention, bloating sensation in the abdomen, and swelling and fluid retention in her lower extremities. CT of the abdomen showed extensive subcutaneous edema and abdominal ascites with mild the pleural effusions and basilar atelectasis. It was also evidence of cardiomegaly and pericardial effusion. VQ scan ordered by the admitting physician showed high probability for pulmonary embolism. Could not have a CT angiogram of the chest because of her renal functioning. Nephrology is following for this. Venous Doppler of the legs was negative for DVT. Patient is now on heparin, she was seen by many consultants since admission including cardiology scheduled to have 2-D echocardiogram, advised to continue Lasix, and recommended interventional radiology for paracentesis. She had a paracentesis and unfortunetly cytology looks consistent with m etastatic adenocarcinoma. This was during hospital visit in November 2021, She has a new outpatient consult visit 03/30/22, delay in seeing her she was seeing Dr. Rose in December, will ask himto evaluate to assist in updating the past month Review of Systems All systems: negative Constitutional: Reports as per HPI Past Medical History Past Medical History: Cancer, Heart Failure, Diabetes Mellitus, Hyperlipidemia, Hypertension, Renal Disease Additional Past Medical History / Comment(s): anemia, pulmonary edema, gout, weakness, uterine Ca, ascites History of Any Multi-Drug Resistant Organisms: None Reported Past Surgical History: No Surgical Hx Reported Past Anesthesia/Blood Transfusion Reactions: No Reported Reaction Past Psychological History: Depression Smoking Status: Never smoker Past Alcohol Use History: None Reported Past Drug Use History: None Reported - Past Family History Father Family Medical History: Myocardial Infarction ([place]) Additional Family Medical History / Comment(s): father of [place] at 58 years old Mother Additional Family Medical History / Comment(s): mother of old age at 95 years old Medications and Allergies Home Medications Medication Instructions Recorded Confirmed Type allopurinoL [Zyloprim] 100 mg PO DAILY 12/16/20 03/07/22 History Linagliptin [Tradjenta] 5 mg PO DAILY 08/02/21 03/07/22 History Isosorbide Mononitrate ER [Imdur] 30 mg PO DAILY tablet 08/09/21 03/07/22 Rx Ferrous Sulfate [Iron (65 MG 325 mg PO DAILY 10/11/21 03/07/22 History Elemental)] Insulin Lispro [humaLOG Kwikpen] See Protocol SQ ACHS 12/10/21 03/07/22 History carvediloL [Coreg] 6.25 mg PO BID 12/10/21 03/07/22 History Apixaban [Eliquis] 5 mg PO BID 30 Days #60 tab 12/20/21 03/07/22 Rx Furosemide [Lasix] 40 mg PO DAILY 30 Days #30 tab 12/20/21 03/07/22 Rx HYDROcodone/APAP 5-325MG [[place] 1 tab PO TID PRN 01/03/22 03/07/22 History 5-325] Cholestyramine/Aspartame 4 gm PO DAILY 03/07/22 03/07/22 History [Cholestyramine Light Packet] NIFEdipine XL [Procardia XL] 60 mg PO DAILY 03/07/22 03/07/22 History Allergies Allergy/AdvReac Type Severity Reaction Status Date / Time No Known Allergies Allergy Verified 03/07/22 22:57 Physical Exam Vitals: Vital Signs Temp Pulse Pulse Resp BP BP BP 03/08/22 08:11 98.0 F 66 17 200/90 196/86 03/08/22 08:00 66 17 03/08/22 06:43 71 17 193/97 03/08/22 06:00 69 17 200/92 03/08/22 05:00 70 158/76 03/08/22 04:00 81 16 172/78 03/08/22 03:00 79 16 177/77 03/08/22 00:46 98.1 F 89 16 192/81 03/08/22 00:00 84 161/74 03/07/22 23:00 90 16 152/76 03/07/22 22:00 78 17 148/74 03/07/22 12:18 97.7 F 63 18 181/80 Pulse Ox 03/08/22 08:11 92 L 03/08/22 08:00 03/08/22 06:43 96 03/08/22 06:00 93 L 03/08/22 05:00 03/08/22 04:00 03/08/22 03:00 96 03/08/22 00:46 95 03/08/22 00:00 97 03/07/22 23:00 97 03/07/22 22:00 96 03/07/22 12:18 95 Intake and Output 03/07/22 03/08/22 03/08/22 22:59 06:59 14:59 Other: Voiding Method External Catheter - Constitutional General appearance: cooperative, no acute distress - EENT Eyes: EOMI ENT: NA/AT - Neck Neck: normal ROM - Respiratory Respiratory: bilateral: CTA - Cardiovascular Rhythm: regularly irregular leg Peripheral Edema: bilateral: 2+ - Gastrointestinal General gastrointestinal: soft, tenderness - Integumentary Integumentary: pale - Musculoskeletal Musculoskeletal: generalized weakness - Psychiatric Psychiatric: A&O x's 3, appropriate affect Results CBC & Chem 7: 03/09/22 06:32 03/09/22 06:32 Labs: Abnormal Lab Results - Last 24 Hours (Table) 03/07/22 03/07/22 03/07/22 Range/Units 14:15 14:15 16:00 RBC 3.13 L (3.80-5.40) m/uL Hgb 9.8 L (11.4-16.0) gm/dL Hct 31.6 L (34.0-46.0) % MCV 100.8 H (80.0-100.0) fL Lymphocytes # 0.4 L (1.0-4.8) k/uL Potassium 5.6 H (3.5-5.1) mmol/L Chloride 112 H (98-107) mmol/L Carbon Dioxide 15 L (22-30) mmol/L BUN 56 H (7-17) mg/dL Creatinine 1.59 H (0.52-1.04) mg/dL Glucose 133 H (74-99) mg/dL Calcium 8.1 L (8.4-10.2) mg/dL Alkaline Phosphatase 187 H (38-126) U/L Total Protein 6.1 L (6.3-8.2) g/dL Albumin 3.3 L (3.5-5.0) g/dL Urine Protein 3+ H (Negative) Urine Glucose (UA) Trace H (Negative) Urine Blood Small H (Negative) Ur Leukocyte Esterase Small H (Negative) Urine RBC 9 H (0-5) /hpf Urine WBC 22 H (0-5) /hpf Hyaline Casts 4 H (0-2) /lpf Urine Mucus Rare H (None) /hpf Assessment and Plan (1) Bilateral lower extremity edema Narrative/Plan: Dopplers pending Current Visit: Yes Status: Acute Code(s): R60.0 - LOCALIZED EDEMA SNOMED Code(s): 496231257 (2) CYNDEE (acute kidney injury) Current Visit: No Status: Acute Code(s): N17.9 - ACUTE KIDNEY FAILURE, UNSPECIFIED SNOMED Code(s): 24818798 (3) Adenocarcinoma of the endometrium/uterus Narrative/Plan: Abdominal Ascites Paracentesis ordered Current Visit: No Status: Chronic Priority: Medium Code(s): C54.1 - MALIGNANT NEOPLASM OF ENDOMETRIUM SNOMED Code(s): 652302478
[2022-03-09 20:51] LABS: Glucose,Whole Blood 174 mg/dL (70-110)
--- NOTE | 2022-03-09 20:59 | US ---
EXAMINATION TYPE: US abdomen limited DATE OF EXAM: 03/08/2022 COMPARISON: NONE CLINICAL HISTORY: to assess for fluid pocket. Assess for fluid pocket. Scanned all four quadrants of the abdomen. Fluid visualized within all four quadrants. Largest pocket appears to be in the left lower quadrant. IMPRESSION: 1. Ascites.
--- NOTE | 2022-03-09 21:24 | US ---
EXAMINATION TYPE: US venous doppler duplex LE BI DATE OF EXAM: 03/09/2022 4:03 PM COMPARISON: Prior bilateral venous ultrasound December 10, 2021 CLINICAL HISTORY: pain. SIDE PERFORMED: Bilateral TECHNIQUE: The lower extremity deep venous system is examined utilizing real time linear array sonog alfonzo with graded compression, doppler sonography and color-flow sonography. VESSELS IMAGED: Common Femoral Vein, not seen Deep Femoral Vein, not seen Greater Saphenous Vein * Femoral Vein Popliteal Vein Small Saphenous Vein *not seen Proximal Calf Veins, not seen (* superficial vessels) Morbidly obese patient with severe interstitial edema. Technically difficult very limited study. Right Leg: Groin vessels not seen, unable to see vessels for compression pictures from groin to dist al femoral vein, unable to turn probe for color pictures in popliteal fossa due to above limitations. Appears negative for DVT as seen. Left Leg: Groin vessels not seen, unable to see vessels for compression pictures from groin to dis sarah femoral vein, unable to turn probe for color pictures in popliteal fossa due to above limitations . Appears negative for DVT as seen. Grayscale, color doppler, spectral doppler imaging performed of the deep veins of the bilateral lower extremities. There is normal flow, compressibility, vascular waveforms. IMPRESSION: Markedly suboptimal study due to body habitus and extensive overlying subcutaneous edema . No convincing evidence for acute DVT in either lower extremity.
--- NOTE | 2022-03-09 22:07 | XR ---
EXAMINATION TYPE: XR chest 2V DATE OF EXAM: 03/07/2022 COMPARISON: Chest CT December 19, 2021 HISTORY: Chest pain. TECHNIQUE: Frontal and lateral views of the chest are obtained. FINDINGS: Persisting cardiomegaly with new small left greater than right pleural effusions and new m ild to moderate central vascular congestion. There is no pneumothorax seen bilaterally. The osseous structures are intact. IMPRESSION: Findings consistent with CHF exacerbation as detailed above.
[2022-03-10] MEDS: HYDROcodone/APAP 5-325MG 1 EACH TAB PO PRN ×3 (03:32→20:14)
[2022-03-10 07:11] LABS: Glucose,Whole Blood 117 mg/dL (70-110)
[2022-03-10] MEDS: INSULIN ASPART (NovoLOG) 100 UNIT/ML VIAL SQ SCH ×4 (07:17→21:33)
[2022-03-10] MEDS: allopurinoL 100 MG TAB PO SCH (09:18)
[2022-03-10] MEDS: ISOSORBIDE MONONITRATE ER 30 MG TAB.ER.24H PO SCH (09:18)
[2022-03-10] MEDS: carvediloL 6.25 MG TAB PO SCH ×2 (09:18→20:06)
[2022-03-10 11:21] LABS: Glucose,Whole Blood 129 mg/dL (70-110)
--- NOTE | 2022-03-10 14:45 | US ---
Ultrasound-guided paracentesis. DATE OF EXAM: 03/10/2022 CLINICAL HISTORY: Ascites The procedure was discussed with the patient. The risks, complications, benefits, and alternatives we re discussed and any questions were answered. Informed consent was obtained. The patient was placed s upine on the ultrasound table and prepped and draped in the usual sterile fashion. All elements of maximal barrier technique were utilized. Under ultrasound guidance, access into the right lower quadrant was obtained, via the paracentesis catheter system and direct ultrasound guidanc e. Approximately 4.7 liters of straw-colored fluid was removed. The patient was stable throughout the pr ocedure and remained stable upon discharge from Department of Radiology. IMPRESSION: Successful paracentesis under ultrasound guidance.
--- NOTE | 2022-03-10 15:02 | P.PN ---
Subjective Progress Note Date: 03/10/22 Pts paracentesis completed today and removed 4.7L of fluid Gen: awake, alert HEENT: normocephalic, atraumatic, good hearing acuity, moist mucous membranes Resp: good air exchange, breathing comfortably with no accessory muscle use CVS: good distal perfusion x 4, GI: Distended, diffusely TTP, ascites : no SPT, no CVAT, gonsalez catheter not present MSK: Bilateral pitting edema, no clubbing Neuro: non-focal, moving all extremities Psych: cooperative, euthymic mood Assessment/plan: Acute on chronic diastolic CHF exacerbation Recurrent abd ascites, secondary to uterine cancer -paracentesis November 2021 cytology showed adenocarcinoma -supportive care -IR for paracentesis , theraputic -IV lasix -cardiac diet -monitor vital signs -fall precautions -OP follow up for uterine cancer Elevated D dimer with recent diagnosis of high probability PE -continue with eliquis DM II hypertension uncontrolled , resume home BP meds, clonidine PRN for systolic blood pressure > 180 chronic anemia , vaginal bleeding occasional 2/2 uterine cancer Full code DVT PPX on eliquis for PE Objective - Vital Signs Vital signs: Vital Signs Temp 97.6 F 03/10/22 12:12 Pulse 62 03/10/22 12:12 Resp 16 03/10/22 12:12 BP 157/66 03/10/22 12:12 Pulse Ox 92 L 03/10/22 12:12 FiO2 Intake & Output 03/09/22 03/10/22 03/10/22 18:59 06:59 18:59 Output Total 300 4700 Balance -300 -4700 Weight 123.5 kg Output: Gastric Drainage 4700 Urine 300 Other: Voiding Method External Catheter External Catheter External Catheter # Voids 2 1 - Labs CBC & Chem 7: 03/09/22 06:32 03/09/22 06:32 Labs: Abnormal Lab Results - Last 24 Hours (Table) 03/09/22 03/09/22 03/10/22 Range/Units 16:36 20:50 07:07 POC Glucose (mg/dL) 231 H 174 H 117 H (70-110) mg/dL 03/10/22 Range/Units 11:14 POC Glucose (mg/dL) 129 H (70-110) mg/dL
[2022-03-10 15:26] LABS: Basophils % (A) 1 %; Eosinophils # (A) 0.2 k/uL (0-0.7); Eosinophils % (A) 3 %; HCT 28.6 % (34.0-46.0); HGB 8.6 gm/dL (11.4-16.0); Hypochromasia Marked; Lymphocytes # (A) 0.5 k/uL (1.0-4.8); Lymphocytes % (A) 8 %; MCH 30.6 pg (25.0-35.0); MCHC 29.9 g/dL (31.0-37.0); MCV 102.2 fL (80.0-100.0); Macrocytosis Slight; Mean Platelet Volume 7.8; Monocytes # (A) 0.3 k/uL (0-1.0); Monocytes % (A) 5 %; Neutrophils # (A) 4.9 k/uL (1.3-7.7); Neutrophils % (A) 83 %; Platelet Count 216 k/uL (150-450); RDW 15.2 % (11.5-15.5); WBC 5.9 k/uL (3.8-10.6)
[2022-03-10 15:41] LABS: ALT 6 U/L (4-34); AST 13 U/L (14-36); African American GFR (CKD) 31 (>60 ml/min/1.73 sqM); Albumin 2.7 g/dL (3.5-5.0); Albumin/Globulin Ratio 1.1; Alkaline Phosphatase 145 U/L (38-126); Anion Gap 10 mmol/L; Blood Urea Nitrogen 53 mg/dL (7-17); Calcium 7.9 mg/dL (8.4-10.2); Carbon Dioxide 17 mmol/L (22-30); Chloride 111 mmol/L (98-107); Globulin 2.5 g/dL; Glucose 157 mg/dL (74-99); Non-African American GFR(CKD) 27 (>60 ml/min/1.73 sqM); Potassium 5.9 mmol/L (3.5-5.1); Sodium 138 mmol/L (137-145); Total Bilirubin 0.2 mg/dL (0.2-1.3); Total Protein 5.2 g/dL (6.3-8.2)
[2022-03-10 17:17] LABS: Glucose,Whole Blood 173 mg/dL (70-110)
[2022-03-10] MEDS: APIXABAN 5 MG TAB PO SCH (20:06)
[2022-03-10 20:47] LABS: Glucose,Whole Blood 186 mg/dL (70-110)
[2022-03-11] MEDS: HYDROcodone/APAP 5-325MG 1 EACH TAB PO PRN ×3 (02:45→20:23)
[2022-03-11 07:17] LABS: Glucose,Whole Blood 151 mg/dL (70-110)
--- NOTE | 2022-03-11 07:17 | XR ---
EXAMINATION TYPE: XR chest 1V portable DATE OF EXAM: 03/11/2022 6:19 AM COMPARISON: 03/07/2022 TECHNIQUE: XR chest 1V portable Portable AP radiograph of the chest. CLINICAL INDICATION:Female, 66 years old with history of desating; FINDINGS: Lungs/Pleura: Right middle lobe airspace opacities which appear more prominent on today's exam. There is no evidence of pleural effusion or pneumothorax. Pulmonary vascularity: Pulmonary vascular congestion. Heart/mediastinum: Cardiomediastinal silhouette is enlarged and stable. Musculoskeletal: No acute osseous pathology. IMPRESSION: 1. Right lower lobe airspace opacities concerning for pneumonia. 2. Cardiomegaly with pulmonary vascular prominence.
[2022-03-11] MEDS ORDERED: DEXTROSE 50% SYRINGE 50 ML IVP STA (08:21)
[2022-03-11] MEDS ORDERED: INSULIN REGULAR 100 UNIT/ML VIAL (IV) IV ONE (08:30)
[2022-03-11] MEDS ORDERED: SODIUM ZIRCONIUM CYCLOSILICATE 10 GM PACKET PO ONE (08:45)
[2022-03-11 08:52] LABS: Basophils # (A) 0.05 X 10*3/uL (0.00-0.10); Basophils % (A) 0.9 %; Eosinophils # (A) 0.17 X 10*3/uL (0.04-0.35); HCT 26.5 % (37.2-46.3); Immature Grans, Automated 0.4 %; Lymphocytes # (A) 0.61 X 10*3/uL (0.90-5.00); Lymphocytes % (A) 10.9 %; MCH 30.8 pg (27.0-32.0); MCHC 30.2 g/dL (32.0-37.0); MCV 101.9 fL (80.0-97.0); Mean Platelet Volume 10.6 fL (9.5-12.2); Monocytes # (A) 0.43 X 10*3/uL (0.20-1.00); Monocytes % (A) 7.7 %; NRBC Per 100 WBC 0 /100 WBCS (0.0-0.0); Neutrophils # (A) 4.34 X 10*3/uL (1.80-7.70); Neutrophils % (A) 77.1 %; Platelet Count 230 X 10*3/uL (140-440); WBC 5.62 X 10*3/uL (4.50-10.00)
[2022-03-11 08:58] LABS: ALT 5 U/L (8-44); AST 10 U/L (13-35); African American GFR (CKD) 29.4 (60.0-200.0); Albumin 2.8 g/dL (3.8-4.9); Albumin/Globulin Ratio 1.33 (1.60-3.17); Alkaline Phosphatase 144 U/L (41-126); BUN/Creat Ratio 27.85 Ratio (12.00-20.00); Blood Urea Nitrogen 55.7 mg/dL (9.0-27.0); Calcium 7.9 mg/dL (8.7-10.3); Carbon Dioxide 18.3 mmol/L (20.0-27.5); Chloride 112 mmol/L (96-109); Globulin 2.1 g/dL (1.6-3.3); Glucose 133 mg/dL (70-110); Non-African American GFR(CKD) 25.4 (60.0-200.0); Sodium 138 mmol/L (135-145); Total Bilirubin <0.15 mg/dL (0.30-1.20); Total Protein 4.9 g/dL (6.2-8.2)
[2022-03-11] MEDS: allopurinoL 100 MG TAB PO SCH (09:27)
[2022-03-11] MEDS: APIXABAN 5 MG TAB PO SCH ×2 (09:28→20:23)
[2022-03-11] MEDS: ISOSORBIDE MONONITRATE ER 30 MG TAB.ER.24H PO SCH (09:29)
[2022-03-11] MEDS: carvediloL 6.25 MG TAB PO SCH ×2 (09:29→20:24)
[2022-03-11] MEDS: INSULIN ASPART (NovoLOG) 100 UNIT/ML VIAL SQ SCH ×4 (09:30→21:02)
[2022-03-11 11:29] LABS: Glucose,Whole Blood 102 mg/dL (70-110)
--- NOTE | 2022-03-11 12:12 | P.NPCON ---
History of Present Illness - Reason for Consult Consult date: 03/11/22 hyperkalemia - Chief Complaint Hyperkalemia - History of Present Illness This 66-year-old female seen in consultation because of acute kidney injury chronic kidney disease and hyperkalemia. Creatinine was 1.5 ounces 03/09/2022 went up to 2 this morning but her baseline is fluctuating between 2.6 on 11/22/2021 to 1.39 on 03/08/2022 Her potassium was 6 this morning, with a bicarb of 18 and a gap of 7. She is known with carcinoma of the uterus with radiation therapy and to be started on chemotherapy 7. She came in because of worsening edema and some ascites as well as shortness of breath. A VQ scan was positive for high likelihood of PE she was started on Eliquis date Currently she is complaining of weakness in her legs otherwise no orthostatic hypotension or Past Medical History Past Medical History: Cancer, Heart Failure, Diabetes Mellitus, Hyperlipidemia, Hypertension, Renal Disease Additional Past Medical History / Comment(s): anemia, pulmonary edema, gout, weakness, uterine Ca, ascites History of Any Multi-Drug Resistant Organisms: None Reported Past Surgical History: No Surgical Hx Reported Past Anesthesia/Blood Transfusion Reactions: No Reported Reaction Past Psychological History: Depression Smoking Status: Never smoker Past Alcohol Use History: None Reported Past Drug Use History: None Reported - Past Family History Father Family Medical History: Myocardial Infarction (CT) Additional Family Medical History / Comment(s): father of CT at 58 years old Mother Family Medical History: No Reported History Additional Family Medical History / Comment(s): mother of old age at 95 ye ars old Medications and Allergies Home Medications Medication Instructions Recorded Confirmed Type allopurinoL [Zyloprim] 100 mg PO DAILY 12/16/20 03/07/22 History Linagliptin [Tradjenta] 5 mg PO DAILY 08/02/21 03/07/22 History Isosorbide Mononitrate ER [Imdur] 30 mg PO DAILY tablet 08/09/21 03/07/22 Rx Ferrous Sulfate [Iron (65 MG 325 mg PO DAILY 10/11/21 03/07/22 History Elemental)] Insulin Lispro [humaLOG Kwikpen] See Protocol SQ ACHS 12/10/21 03/07/22 History carvediloL [Coreg] 6.25 mg PO BID 12/10/21 03/07/22 History Apixaban [Eliquis] 5 mg PO BID 30 Days #60 tab 12/20/21 03/07/22 Rx Furosemide [Lasix] 40 mg PO DAILY 30 Days #30 tab 12/20/21 03/07/22 Rx HYDROcodone/APAP 5-325MG [Bowen 1 tab PO TID PRN 01/03/22 03/07/22 History 5-325] Cholestyramine/Aspartame 4 gm PO DAILY 03/07/22 03/07/22 History [Cholestyramine Light Packet] NIFEdipine XL [Procardia XL] 60 mg PO DAILY 03/07/22 03/07/22 History Allergies Allergy/AdvReac Type Severity Reaction Status Date / Time No Known Allergies Allergy Verified 03/07/22 22:57 Physical Exam Vitals: Vital Signs Temp Pulse Resp BP BP Pulse Ox 03/11/22 09:28 70 131/67 03/11/22 05:31 92 L 03/11/22 03:47 97.8 F 55 L 18 129/56 92 L 03/11/22 03:00 87 L 03/10/22 20:00 98.2 F 62 18 138/62 92 L 03/10/22 17:45 97.7 F 60 18 147/68 90 L 03/10/22 15:42 93 L 03/10/22 12:12 97.6 F 62 16 157/66 92 L Intake and Output 03/10/22 03/11/22 03/11/22 22:59 06:59 14:59 Intake Total 240 Output Total 75 Balance 240 -75 Intake: Oral 240 Output: Urine 75 Other: Voiding Method External Catheter # Voids 1 2 # Bowel Movements 0 2 Weight 121 kg On examination is awake alert oriented comfortable HEENT exam no JVP neck is supple no facial asymmetry Lungs are clear to auscultation fair air entry bilaterally Heart sounds are unremarkable for any murmur rub gallop Abdomen is distended with ascites but soft not tight. Extremity exams chronic stasis edema with wrinkling of skin and coarse skin. Neurologically awake alert oriented Results - Lab Results Most recent lab results Calcium 7.9 mg/dL (8.7-10.3) L 03/11/22 05:21 Magnesium 2.2 mg/dL (1.5-2.4) 03/09/22 06:32 03/11/22 05:21 03/11/22 05:21 Assessment and Plan Assessment: Impression 1. Acute kidney injury from intravascular volume depletion after Of about 4.7 L yesterday. 2. chronic kidney disease with and creatinine 1.3-2.6. Etiology is diabetic nephropathy with 3+ proteinuria on 03/07/2022, and a protein to creatinine ratio 3.48 g on 12/15/2021 3. Hyperkalemia rule out bladder outlet obstruction or hydronephrosis 4. Non-gap acidosis from COPD and acute kidney injury 5. CA uterus with ascites and paracentesis. 4.7 L on 03/10/2022 Recommendation 1. Check bladder scan 2. Check ultrasound of the kidney in bladder scan is unremarkable rule out hydronephrosis 3. Avoid any Denys inhibitors or ARB 4. Start sodium bicarb 650 4 times a day 5. Patient has been given lokelma, 5 mg once this morning 6. Lasix 20 mg twice a day to induce potassium loss, watch labs closely for worsening renal function Thank you for this consultation and continue to follow closely
[2022-03-11] MEDS: SODIUM BICARBONATE TAB 650 MG TAB PO SCH ×3 (13:51→21:03)
--- NOTE | 2022-03-11 13:58 | US ---
EXAMINATION TYPE: US kidneys/renal and bladder DATE OF EXAM: 03/11/2022 COMPARISON: NONE CLINICAL HISTORY: retention. EXAM MEASUREMENTS: Right Kidney: 11.5 x 5.8 x 6.3 cm Left Kidney: 12.8 x 6.9 x 5.9 cm Right Kidney: cysts seen, largest measures 1.6 x 1.6 x 1.8 cm. Left Kidney: multiple small cysts seen. Bladder: wnl Incidental note is made of ascites. IMPRESSION: 1. Bilateral renal cysts without evidence of obstructive uropathy. 2. Mild increased of kidney parenchyma echogenicity suggestive of medical renal disease.
--- NOTE | 2022-03-11 14:10 | P.PN ---
Subjective Progress Note Date: 03/11/22 Pts Cr bumped today, also has hyperK. Nephrology consult pending. Gen: awake, alert HEENT: normocephalic, atraumatic, good hearing acuity, moist mucous membranes Resp: good air exchange, breathing comfortably with no accessory muscle use CVS: good distal perfusion x 4, GI: Distended, diffusely TTP, ascites : no SPT, no CVAT, gonsalez catheter not present MSK: Bilateral pitting edema, no clubbing Neuro: non-focal, moving all extremities Psych: cooperative, euthymic mood Assessment/plan: Acute on chronic diastolic CHF exacerbation Recurrent abd ascites, secondary to uterine cancer -paracentesis November 2021 cytology showed adenocarcinoma -supportive care -IR for paracentesis , theraputic -IV lasix -cardiac diet -monitor vital signs -fall precautions -OP follow up for uterine cancer CYNDEE on CKD - nephrology consult - steve, lasix - s/p D50/Insulin Elevated D dimer with recent diagnosis of high probability PE -continue with eliquis DM II hypertension uncontrolled , resume home BP meds, clonidine PRN for systolic blood pressure > 180 chronic anemia , vaginal bleeding occasional 2/2 uterine cancer Full code DVT PPX on eliquis for PE Objective - Vital Signs Vital signs: Vital Signs Temp 97.4 F L 03/11/22 12:14 Pulse 56 L 03/11/22 12:14 Resp 17 03/11/22 12:14 BP 143/67 03/11/22 12:14 Pulse Ox 94 L 03/11/22 12:14 FiO2 Intake & Output 03/10/22 03/11/22 03/11/22 18:59 06:59 18:59 Intake Total 240 Output Total 4700 75 262 Balance -4700 165 -262 Weight 121 kg Intake: Oral 240 Output: Gastric Drainage 4700 Urine 75 Post Void Residual 262 Other: Voiding Method External Catheter External Catheter External Catheter # Voids 1 1 2 # Bowel Movements 0 2 - Labs CBC & Chem 7: 03/11/22 05:21 03/11/22 05:21 Labs: Abnormal Lab Results - Last 24 Hours (Table) 03/10/22 03/10/22 03/10/22 Range/Units 14:26 14:26 17:14 RBC 2.80 L (3.80-5.40) m/uL Hgb 8.6 L (11.4-16.0) gm/dL Hct 28.6 L (34.0-46.0) % MCV 102.2 H (80.0-100.0) fL MCHC 29.9 L (31.0-37.0) g/dL RDW (11.5-14.5) % Lymphocytes # 0.5 L (1.0-4.8) k/uL Potassium 5.9 H (3.5-5.1) mmol/L Chloride 111 H (98-107) mmol/L Carbon Dioxide 17 L (22-30) mmol/L Anion Gap (10.00-18.00) mmol/L BUN 53 H (7-17) mg/dL Creatinine 1.91 H (0.52-1.04) mg/dL Est GFR (CKD-EPI)AfAm (60.0-200.0) Est GFR (CKD-EPI)NonAf (60.0-200.0) BUN/Creatinine Ratio (12.00-20.00) Ratio Glucose 157 H (74-99) mg/dL POC Glucose (mg/dL) 173 H (70-110) mg/dL Calcium 7.9 L (8.4-10.2) mg/dL Total Bilirubin (0.30-1.20) mg/dL AST 13 L (14-36) U/L ALT (8-44) U/L Alkaline Phosphatase 145 H (38-126) U/L Total Protein 5.2 L (6.3-8.2) g/dL Albumin 2.7 L (3.5-5.0) g/dL Albumin/Globulin Ratio (1.60-3.17) g/dL 03/10/22 03/11/22 03/11/22 Range/Units 20:46 05:21 05:21 RBC 2.60 L (3.80-5.40) m/uL Hgb 8.0 L (11.4-16.0) gm/dL Hct 26.5 L (34.0-46.0) % MCV 101.9 H (80.0-100.0) fL MCHC 30.2 L (31.0-37.0) g/dL RDW 15.0 H (11.5-14.5) % Lymphocytes # 0.61 L (1.0-4.8) k/uL Potassium 6.0 H (3.5-5.1) mmol/L Chloride 112 H (98-107) mmol/L Carbon Dioxide 18.3 L (22-30) mmol/L Anion Gap 7.70 L (10.00-18.00) mmol/L BUN 55.7 H (7-17) mg/dL Creatinine 2.0 H (0.52-1.04) mg/dL Est GFR (CKD-EPI)AfAm 29.4 L (60.0-200.0) Est GFR (CKD-EPI)NonAf 25.4 L (60.0-200.0) BUN/Creatinine Ratio 27.85 H (12.00-20.00) Ratio Glucose 133 H (74-99) mg/dL POC Glucose (mg/dL) 186 H (70-110) mg/dL Calcium 7.9 L (8.4-10.2) mg/dL Total Bilirubin <0.15 L (0.30-1.20) mg/dL AST 10 L (14-36) U/L ALT 5 L (8-44) U/L Alkaline Phosphatase 144 H (38-126) U/L Total Protein 4.9 L (6.3-8.2) g/dL Albumin 2.8 L (3.5-5.0) g/dL Albumin/Globulin Ratio 1.33 L (1.60-3.17) g/dL 03/11/22 Range/Units 07:16 RBC (3.80-5.40) m/uL Hgb (11.4-16.0) gm/dL Hct (34.0-46.0) % MCV (80.0-100.0) fL MCHC (31.0-37.0) g/dL RDW (11.5-14.5) % Lymphocytes # (1.0-4.8) k/uL Potassium (3.5-5.1) mmol/L Chloride (98-107) mmol/L Carbon Dioxide (22-30) mmol/L Anion Gap (10.00-18.00) mmol/L BUN (7-17) mg/dL Creatinine (0.52-1.04) mg/dL Est GFR (CKD-EPI)AfAm (60.0-200.0) Est GFR (CKD-EPI)NonAf (60.0-200.0) BUN/Creatinine Ratio (12.00-20.00) Ratio Glucose (74-99) mg/dL POC Glucose (mg/dL) 151 H (70-110) mg/dL Calcium (8.4-10.2) mg/dL Total Bilirubin (0.30-1.20) mg/dL AST (14-36) U/L ALT (8-44) U/L Alkaline Phosphatase (38-126) U/L Total Protein (6.3-8.2) g/dL Albumin (3.5-5.0) g/dL Albumin/Globulin Ratio (1.60-3.17) g/dL
[2022-03-11 17:15] LABS: Glucose,Whole Blood 157 mg/dL (70-110)
[2022-03-11] MEDS: FUROSEMIDE 20 MG TAB PO SCH (17:23)
[2022-03-11 20:27] LABS: Glucose,Whole Blood 204 mg/dL (70-110)
[2022-03-12 07:15] LABS: Glucose,Whole Blood 133 mg/dL (70-110)
[2022-03-12] MEDS: INSULIN ASPART (NovoLOG) 100 UNIT/ML VIAL SQ SCH ×4 (09:10→20:17)
[2022-03-12] MEDS: SODIUM BICARBONATE TAB 650 MG TAB PO SCH ×4 (09:36→20:45)
[2022-03-12] MEDS: allopurinoL 100 MG TAB PO SCH (09:36)
[2022-03-12] MEDS: FUROSEMIDE 20 MG TAB PO SCH (09:36)
[2022-03-12] MEDS: ISOSORBIDE MONONITRATE ER 30 MG TAB.ER.24H PO SCH (09:37)
[2022-03-12] MEDS: APIXABAN 5 MG TAB PO SCH ×2 (09:37→20:45)
[2022-03-12] MEDS: carvediloL 6.25 MG TAB PO SCH ×2 (09:37→20:45)
[2022-03-12] MEDS: HYDROcodone/APAP 5-325MG 1 EACH TAB PO PRN ×2 (09:53→20:51)
[2022-03-12 11:14] LABS: Glucose,Whole Blood 224 mg/dL (70-110)
[2022-03-12 11:25] LABS: African American GFR (CKD) 27 (>60 ml/min/1.73 sqM); Anion Gap 7 mmol/L; Basophils % (A) 1 %; Blood Urea Nitrogen 62 mg/dL (7-17); Calcium 7.6 mg/dL (8.4-10.2); Carbon Dioxide 18 mmol/L (22-30); Chloride 112 mmol/L (98-107); Eosinophils # (A) 0.1 k/uL (0-0.7); Eosinophils % (A) 3 %; Glucose 182 mg/dL (74-99); HCT 28.6 % (34.0-46.0); HGB 8.6 gm/dL (11.4-16.0); Hypochromasia Marked; Lymphocytes # (A) 0.4 k/uL (1.0-4.8); Lymphocytes % (A) 8 %; MCH 30.9 pg (25.0-35.0); MCV 103.2 fL (80.0-100.0); Macrocytosis Moderate; Mean Platelet Volume 8.2; Monocytes # (A) 0.3 k/uL (0-1.0); Monocytes % (A) 4 %; Neutrophils # (A) 4.9 k/uL (1.3-7.7); Neutrophils % (A) 84 %; Non-African American GFR(CKD) 23 (>60 ml/min/1.73 sqM); Platelet Count 225 k/uL (150-450); RBC 2.78 m/uL (3.80-5.40); RDW 15.6 % (11.5-15.5); Sodium 137 mmol/L (137-145); WBC 5.8 k/uL (3.8-10.6)
[2022-03-12 11:31] LABS: Potassium 6.2 mmol/L (3.5-5.1)
--- NOTE | 2022-03-12 12:19 | P.PN ---
Subjective Progress Note Date: 03/12/22 Principal diagnosis: This is a 66-year-old female seen in counseling regarding acute kidney injury and chronic kidney disease and hyperkalemia Patient has uterus with ascites and metastatic disease Etiology is determined maintained to be from volume depletion because of ascites tap, 4.7 L were Drained. Possibility of neurogenic bladder was considered a Eubanks catheter was placed bladder scan showed 262 mL. Ultrasound of the kidney shows cysts but no hydronephrosis. She was given my yesterday potassium remains high at 6.2 this morning bicarb is 18, creatinine is up slowly from 1.5-2 and subsequently this morning to 2.17 urine output is about 200-250 mL for every 12 hours Patient denies any fever chills cough shortness of breath nausea vomiting. Appetite is fair. No diarrhea. She has severe static edema Objective - Vital Signs Vital signs: Vital Signs Temp 97.4 F L 03/12/22 04:25 Pulse 61 03/12/22 09:37 Resp 15 03/12/22 08:55 BP 126/72 03/12/22 09:37 Pulse Ox 92 L 03/12/22 04:25 FiO2 Intake & Output 03/11/22 03/12/22 03/12/22 18:59 06:59 18:59 Intake Total 240 Output Total 1162 480 Balance -922 -480 Weight 119 kg Intake: Oral 240 Output: Urine 900 480 Uretheral ([place]) 300 Post Void Residual 262 Other: Voiding Method External Catheter Indwelling Catheter Indwelling Catheter # Voids 2 # Bowel Movements 2 Awake alert oriented comfortable denies any dizziness when standing up HEENT exam no JVP neck is supple no facial asymmetry Lungs clear to auscultation with an occasional coarse crackle. Good air entry bilaterally Heart sounds unremarkable for any murmur rub gallop abdomen is distended and tight Extreme exam was 3+ edema with stasis changes. neurologically awake alert oriented comfortable cheerful - Labs CBC & Chem 7: 03/12/22 10:39 03/12/22 10:39 Labs: Abnormal Lab Results - Last 24 Hours (Table) 03/11/22 03/11/22 03/12/22 Range/Units 17:14 20:26 07:14 RBC (3.80-5.40) m/uL Hgb (11.4-16.0) gm/dL Hct (34.0-46.0) % MCV (80.0-100.0) fL MCHC (31.0-37.0) g/dL RDW (11.5-15.5) % Lymphocytes # (1.0-4.8) k/uL Potassium (3.5-5.1) mmol/L Chloride (98-107) mmol/L Carbon Dioxide (22-30) mmol/L BUN (7-17) mg/dL Creatinine (0.52-1.04) mg/dL Glucose (74-99) mg/dL POC Glucose (mg/dL) 157 H 204 H 133 H (70-110) mg/dL Calcium (8.4-10.2) mg/dL 03/12/22 03/12/22 03/12/22 Range/Units 10:39 10:39 11:13 RBC 2.78 L (3.80-5.40) m/uL Hgb 8.6 L (11.4-16.0) gm/dL Hct 28.6 L (34.0-46.0) % MCV 103.2 H (80.0-100.0) fL MCHC 30.0 L (31.0-37.0) g/dL RDW 15.6 H (11.5-15.5) % Lymphocytes # 0.4 L (1.0-4.8) k/uL Potassium 6.2 H* (3.5-5.1) mmol/L Chloride 112 H (98-107) mmol/L Carbon Dioxide 18 L (22-30) mmol/L BUN 62 H (7-17) mg/dL Creatinine 2.17 H (0.52-1.04) mg/dL Glucose 182 H (74-99) mg/dL POC Glucose (mg/dL) 224 H (70-110) mg/dL Calcium 7.6 L (8.4-10.2) mg/dL Assessment and Plan Assessment: Impression 1. Acute kidney injury from intravascular volume depletion after paracentesis about 4.7 L day before yesterday. Possible neurogenic bladder with 260 mL of bladder scan, status post Eubanks catheter. Ultrasound shows bilateral kidney cysts but not reported as hydronephrosis 2. chronic kidney disease with and creatinine 1.3-2.6. Etiology is diabetic nephropathy with 3+ proteinuria on 03/07/2022, and a protein to creatinine ratio 3.48 g on 12/15/2021 3. Hyperkalemia ruled out bladder outlet obstruction or hydronephrosis 4. Non-gap acidosis from chronic kidney disease and acute kidney injury 5. CA uterus with ascites and paracentesis. 4.7 L on 03/10/2022 Recommendation 1. Start IV normal saline at 75 an hour 2. Change your Lasix to IV Lasix 20 every 12 3. Discussed with the radiologist to make sure there is no hydronephrosis as well as the ultrasound is reported as cysts 4. Avoid any Denys inhibitors or ARB 4. Continue sodium bicarb 650 4 times a day 5. Lokelma 10 g 6. Monitor labs
[2022-03-12] MEDS ORDERED: DEXTROSE 50% SYRINGE 50 ML IVP ONE (12:43)
[2022-03-12] MEDS ORDERED: SODIUM ZIRCONIUM CYCLOSILICATE 10 GM PACKET PO ONE (12:45)
[2022-03-12] MEDS: SODIUM CHLORIDE 0.9% 1,000 ML IV SCH (12:48)
[2022-03-12] MEDS: FUROSEMIDE 10 MG/ML 2 ML VIAL IV SCH ×2 (12:48→20:45)
--- NOTE | 2022-03-12 14:25 | P.PN ---
Subjective Progress Note Date: 03/12/22 Pts Cr bumped today again, also has hyperK to 6.2. Nephrology following, ordered lokelma, D50/insulin Gen: awake, alert HEENT: normocephalic, atraumatic, good hearing acuity, moist mucous membranes Resp: good air exchange, breathing comfortably with no accessory muscle use CVS: good distal perfusion x 4, GI: Distended, diffusely TTP, ascites : no SPT, no CVAT, gonsalez catheter not present MSK: Bilateral pitting edema, no clubbing Neuro: non-focal, moving all extremities Psych: cooperative, euthymic mood Assessment/plan: Acute on chronic diastolic CHF exacerbation Recurrent abd ascites, secondary to uterine cancer -paracentesis November 2021 cytology showed adenocarcinoma -supportive care -IR for paracentesis , theraputic -IV lasix -cardiac diet -monitor vital signs -fall precautions -OP follow up for uterine cancer CYNDEE on CKD - nephrology consult - lokelma, lasix - s/p D50/Insulin Elevated D dimer with recent diagnosis of high probability PE -continue with eliquis DM II hypertension uncontrolled , resume home BP meds, clonidine PRN for systolic blood pressure > 180 chronic anemia , vaginal bleeding occasional 2/2 uterine cancer Full code DVT PPX on eliquis for PE Objective - Vital Signs Vital signs: Vital Signs Temp 97.8 F 03/12/22 11:15 Pulse 57 L 03/12/22 11:15 Resp 18 03/12/22 11:15 BP 149/67 03/12/22 11:15 Pulse Ox 94 L 03/12/22 11:15 FiO2 Intake & Output 03/11/22 03/12/22 03/12/22 18:59 06:59 18:59 Intake Total 240 Output Total 1162 480 2 Balance -922 -480 -2 Weight 119 kg Intake: Oral 240 Output: Urine 900 480 Uretheral (Gonsalez) 300 Post Void Residual 262 Stool 2 Other: Voiding Method External Catheter Indwelling Catheter Indwelling Catheter # Voids 2 # Bowel Movements 2 - Labs CBC & Chem 7: 03/12/22 10:39 03/12/22 10:39 Labs: Abnormal Lab Results - Last 24 Hours (Table) 03/11/22 03/11/22 03/12/22 Range/Units 17:14 20:26 07:14 RBC (3.80-5.40) m/uL Hgb (11.4-16.0) gm/dL Hct (34.0-46.0) % MCV (80.0-100.0) fL MCHC (31.0-37.0) g/dL RDW (11.5-15.5) % Lymphocytes # (1.0-4.8) k/uL Potassium (3.5-5.1) mmol/L Chloride (98-107) mmol/L Carbon Dioxide (22-30) mmol/L BUN (7-17) mg/dL Creatinine (0.52-1.04) mg/dL Glucose (74-99) mg/dL POC Glucose (mg/dL) 157 H 204 H 133 H (70-110) mg/dL Calcium (8.4-10.2) mg/dL 03/12/22 03/12/22 03/12/22 Range/Units 10:39 10:39 11:13 RBC 2.78 L (3.80-5.40) m/uL Hgb 8.6 L (11.4-16.0) gm/dL Hct 28.6 L (34.0-46.0) % MCV 103.2 H (80.0-100.0) fL MCHC 30.0 L (31.0-37.0) g/dL RDW 15.6 H (11.5-15.5) % Lymphocytes # 0.4 L (1.0-4.8) k/uL Potassium 6.2 H* (3.5-5.1) mmol/L Chloride 112 H (98-107) mmol/L Carbon Dioxide 18 L (22-30) mmol/L BUN 62 H (7-17) mg/dL Creatinine 2.17 H (0.52-1.04) mg/dL Glucose 182 H (74-99) mg/dL POC Glucose (mg/dL) 224 H (70-110) mg/dL Calcium 7.6 L (8.4-10.2) mg/dL
[2022-03-12 17:25] LABS: Glucose,Whole Blood 96 mg/dL (70-110)
[2022-03-12 20:15] LABS: Glucose,Whole Blood 122 mg/dL (70-110)
[2022-03-13] MEDS: SODIUM CHLORIDE 0.9% 1,000 ML IV SCH (00:40)
[2022-03-13] MEDS: HYDROcodone/APAP 5-325MG 1 EACH TAB PO PRN ×2 (04:38→20:47)
[2022-03-13 07:09] LABS: Glucose,Whole Blood 126 mg/dL (70-110)
[2022-03-13] MEDS: INSULIN ASPART (NovoLOG) 100 UNIT/ML VIAL SQ SCH ×4 (07:16→20:46)
[2022-03-13] MEDS: APIXABAN 5 MG TAB PO SCH ×2 (07:33→20:46)
[2022-03-13] MEDS: FUROSEMIDE 10 MG/ML 2 ML VIAL IV SCH ×2 (07:33→20:46)
[2022-03-13] MEDS: SODIUM BICARBONATE TAB 650 MG TAB PO SCH ×4 (07:33→20:46)
[2022-03-13] MEDS: ISOSORBIDE MONONITRATE ER 30 MG TAB.ER.24H PO SCH (07:34)
[2022-03-13] MEDS: carvediloL 6.25 MG TAB PO SCH ×2 (07:34→20:46)
[2022-03-13] MEDS: allopurinoL 100 MG TAB PO SCH (07:34)
--- NOTE | 2022-03-13 09:47 | P.PN ---
Subjective Patient is seen in follow-up for acute kidney injury on chronic kidney disease. Creatinine 2.17 yesterday and potassium was 6.2. Patient is currently on IV fluids as well as IV Lasix. Has a Eubanks catheter. Nonoliguric. Denies vomiting or diarrhea today. Oral intake is fair. Vital signs are stable. General: Awake. No acute distress. HEENT: Head exam is unremarkable. LUNGS: Breath sounds decreased. HEART: Rate and Rhythm are regular. ABDOMEN: Soft, distention noted. EXTREMITITES: 2+ edema. Chronic changes noted. Objective - Vital Signs Vital signs: Vital Signs Temp 97.9 F 03/13/22 04:09 Pulse 57 L 03/13/22 04:09 Resp 16 03/13/22 04:09 BP 147/73 03/13/22 04:09 Pulse Ox 94 L 03/13/22 04:09 FiO2 Intake & Output 03/12/22 03/13/22 03/13/22 18:59 06:59 18:59 Intake Total 240 Output Total 2 751 Balance -2 -511 Weight 121 kg Intake: Oral 240 Output: Urine 750 Stool 2 1 Other: Voiding Method Indwelling Catheter Indwelling Catheter - Labs CBC & Chem 7: 03/12/22 10:39 03/12/22 10:39 Labs: Abnormal Lab Results - Last 24 Hours (Table) 03/12/22 03/12/22 03/12/22 Range/Units 10:39 10:39 11:13 RBC 2.78 L (3.80-5.40) m/uL Hgb 8.6 L (11.4-16.0) gm/dL Hct 28.6 L (34.0-46.0) % MCV 103.2 H (80.0-100.0) fL MCHC 30.0 L (31.0-37.0) g/dL RDW 15.6 H (11.5-15.5) % Lymphocytes # 0.4 L (1.0-4.8) k/uL Potassium 6.2 H* (3.5-5.1) mmol/L Chloride 112 H (98-107) mmol/L Carbon Dioxide 18 L (22-30) mmol/L BUN 62 H (7-17) mg/dL Creatinine 2.17 H (0.52-1.04) mg/dL Glucose 182 H (74-99) mg/dL POC Glucose (mg/dL) 224 H (70-110) mg/dL Calcium 7.6 L (8.4-10.2) mg/dL 03/12/22 03/13/22 Range/Units 20:12 07:07 RBC (3.80-5.40) m/uL Hgb (11.4-16.0) gm/dL Hct (34.0-46.0) % MCV (80.0-100.0) fL MCHC (31.0-37.0) g/dL RDW (11.5-15.5) % Lymphocytes # (1.0-4.8) k/uL Potassium (3.5-5.1) mmol/L Chloride (98-107) mmol/L Carbon Dioxide (22-30) mmol/L BUN (7-17) mg/dL Creatinine (0.52-1.04) mg/dL Glucose (74-99) mg/dL POC Glucose (mg/dL) 122 H 126 H (70-110) mg/dL Calcium (8.4-10.2) mg/dL Assessment and Plan Plan: Assessment: 1. Acute kidney injury secondary to ATN. Creatinine 2.17 yesterday. Nonoliguric. No hydronephrosis noted on kidney ultrasound. 2. Hyperkalemia secondary to acute kidney injury, acidosis. Patient is on IV Lasix and also received dose of lokelma yesterday. No repeat labs since. 3. Uterine cancer with ascites status post paracentesis on 03/10/2022 with 4.7 L drained. 4. Metabolic acidosis secondary to acute kidney injury maintain on oral bicarb. 5. Hypertension with chronic kidney disease. Stable. 6. 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 7. Diabetes mellitus. 8. Chronic diastolic CHF. 9. Anemia of chronic any disease. Rule out iron deficiency. Plan: Hep-Lock IV fluids. Maintain IV Lasix. Renal diet. Maintain fluid restriction. Follow-up morning labs. Hold Coreg for systolic blood pressure less than 120 or heart rate less than 60. Defer further management to primary team. Avoid nephrotoxins. Check iron studies.
[2022-03-13 10:23] LABS: ALT 7 U/L (4-34); AST 14 U/L (14-36); African American GFR (CKD) 28 (>60 ml/min/1.73 sqM); Albumin 2.8 g/dL (3.5-5.0); Albumin/Globulin Ratio 1.1; Alkaline Phosphatase 142 U/L (38-126); Anion Gap 8 mmol/L; Blood Urea Nitrogen 62 mg/dL (7-17); Calcium 7.9 mg/dL (8.4-10.2); Carbon Dioxide 18 mmol/L (22-30); Chloride 112 mmol/L (98-107); Globulin 2.5 g/dL; Glucose 152 mg/dL (74-99); Magnesium 2.1 mg/dL (1.6-2.3); Non-African American GFR(CKD) 24 (>60 ml/min/1.73 sqM); Potassium 5.7 mmol/L (3.5-5.1); Sodium 138 mmol/L (137-145); Total Bilirubin 0.1 mg/dL (0.2-1.3); Total Protein 5.3 g/dL (6.3-8.2)
[2022-03-13 11:08] LABS: Glucose,Whole Blood 175 mg/dL (70-110)
--- NOTE | 2022-03-13 12:26 | P.PN ---
Subjective Progress Note Date: 03/13/22 Pt being followed for kidney dysfunction with hyperkalemia Gen: awake, alert HEENT: normocephalic, atraumatic, good hearing acuity, moist mucous membranes Resp: good air exchange, breathing comfortably with no accessory muscle use CVS: good distal perfusion x 4, GI: Distended, diffusely TTP, ascites : no SPT, no CVAT, gonsalez catheter not present MSK: Bilateral pitting edema, no clubbing Neuro: non-focal, moving all extremities Psych: cooperative, euthymic mood Assessment/plan: Acute on chronic diastolic CHF exacerbation Recurrent abd ascites, secondary to uterine cancer -paracentesis November 2021 cytology showed adenocarcinoma -supportive care -IR for paracentesis , theraputic -IV lasix -cardiac diet -monitor vital signs -fall precautions -OP follow up for uterine cancer CYNDEE on CKD - nephrology consult - steve, lasix - s/p D50/Insulin Elevated D dimer with recent diagnosis of high probability PE -continue with eliquis DM II hypertension uncontrolled , resume home BP meds, clonidine PRN for systolic blood pressure > 180 chronic anemia , vaginal bleeding occasional 2/2 uterine cancer Full code DVT PPX on eliquis for PE Objective - Vital Signs Vital signs: Vital Signs Temp 98.5 F 03/13/22 11:05 Pulse 57 L 03/13/22 11:05 Resp 18 03/13/22 11:05 BP 145/66 03/13/22 11:05 Pulse Ox 93 L 03/13/22 11:05 FiO2 Intake & Output 03/12/22 03/13/22 03/13/22 18:59 06:59 18:59 Intake Total 240 Output Total 2 751 Balance -2 -511 Weight 121 kg Intake: Oral 240 Output: Urine 750 Stool 2 1 Other: Voiding Method Indwelling Catheter Indwelling Catheter Indwelling Catheter - Labs CBC & Chem 7: 03/12/22 10:39 03/13/22 09:40 Labs: Abnormal Lab Results - Last 24 Hours (Table) 03/12/22 03/13/22 03/13/22 Range/Units 20:12 07:07 09:40 Potassium 5.7 H (3.5-5.1) mmol/L Chloride 112 H (98-107) mmol/L Carbon Dioxide 18 L (22-30) mmol/L BUN 62 H (7-17) mg/dL Creatinine 2.09 H (0.52-1.04) mg/dL Glucose 152 H (74-99) mg/dL POC Glucose (mg/dL) 122 H 126 H (70-110) mg/dL Calcium 7.9 L (8.4-10.2) mg/dL Total Bilirubin 0.1 L (0.2-1.3) mg/dL Alkaline Phosphatase 142 H (38-126) U/L Total Protein 5.3 L (6.3-8.2) g/dL Albumin 2.8 L (3.5-5.0) g/dL 03/13/22 Range/Units 11:07 Potassium (3.5-5.1) mmol/L Chloride (98-107) mmol/L Carbon Dioxide (22-30) mmol/L BUN (7-17) mg/dL Creatinine (0.52-1.04) mg/dL Glucose (74-99) mg/dL POC Glucose (mg/dL) 175 H (70-110) mg/dL Calcium (8.4-10.2) mg/dL Total Bilirubin (0.2-1.3) mg/dL Alkaline Phosphatase (38-126) U/L Total Protein (6.3-8.2) g/dL Albumin (3.5-5.0) g/dL
[2022-03-13] MEDS ORDERED: SODIUM ZIRCONIUM CYCLOSILICATE 10 GM PACKET PO ONE ×2 (12:29→19:00)
[2022-03-13] MEDS ORDERED: SODIUM BICARB 8.4% 50 ML SYR (1 MEQ/ML) IV STA (12:29)
[2022-03-13 15:32] LABS: % Iron Saturation 12.03 (12.00-45.00); Iron 28 ug/dL (50-170); Total Iron Binding Capacity 231 ug/dL (228-460)
[2022-03-13 17:21] LABS: Glucose,Whole Blood 162 mg/dL (70-110)
[2022-03-13 20:43] LABS: Glucose,Whole Blood 151 mg/dL (70-110)
[2022-03-14] MEDS: HYDROcodone/APAP 5-325MG 1 EACH TAB PO PRN (05:16)
[2022-03-14 06:25] LABS: African American GFR (CKD) 31 (>60 ml/min/1.73 sqM); Anion Gap 6 mmol/L; Blood Urea Nitrogen 58 mg/dL (7-17); Calcium 7.8 mg/dL (8.4-10.2); Carbon Dioxide 21 mmol/L (22-30); Chloride 113 mmol/L (98-107); Glucose 108 mg/dL (74-99); Non-African American GFR(CKD) 27 (>60 ml/min/1.73 sqM); Potassium 5.3 mmol/L (3.5-5.1); Sodium 140 mmol/L (137-145)
[2022-03-14 07:14] LABS: Glucose,Whole Blood 120 mg/dL (70-110)
[2022-03-14] MEDS: INSULIN ASPART (NovoLOG) 100 UNIT/ML VIAL SQ SCH ×2 (08:13→12:37)
[2022-03-14 08:57] LABS: Basophils # (A) 0.06 X 10*3/uL (0.00-0.10); Basophils % (A) 1.1 %; Eosinophils # (A) 0.15 X 10*3/uL (0.04-0.35); Eosinophils % (A) 2.8 %; HCT 28.9 % (37.2-46.3); HGB 8.6 g/dL (12.0-15.0); Immature Grans, Automated 0.2 %; Lymphocytes # (A) 0.63 X 10*3/uL (0.90-5.00); Lymphocytes % (A) 11.6 %; MCH 29.9 pg (27.0-32.0); MCHC 29.8 g/dL (32.0-37.0); MCV 100.3 fL (80.0-97.0); Mean Platelet Volume 10.2 fL (9.5-12.2); Monocytes # (A) 0.38 X 10*3/uL (0.20-1.00); NRBC Per 100 WBC 0 /100 WBCS (0.0-0.0); Neutrophils # (A) 4.21 X 10*3/uL (1.80-7.70); Neutrophils % (A) 77.3 %; Platelet Count 245 X 10*3/uL (140-440); RBC 2.88 X 10*6/uL (4.10-5.20); WBC 5.44 X 10*3/uL (4.50-10.00)
[2022-03-14] MEDS: ISOSORBIDE MONONITRATE ER 30 MG TAB.ER.24H PO SCH (09:59)
[2022-03-14] MEDS: allopurinoL 100 MG TAB PO SCH (09:59)
[2022-03-14] MEDS: SODIUM BICARBONATE TAB 650 MG TAB PO SCH ×2 (09:59→13:19)
[2022-03-14] MEDS: carvediloL 6.25 MG TAB PO SCH (09:59)
[2022-03-14] MEDS: FUROSEMIDE 10 MG/ML 2 ML VIAL IV SCH (09:59)
[2022-03-14] MEDS: APIXABAN 5 MG TAB PO SCH (09:59)
[2022-03-14 11:06] LABS: Glucose,Whole Blood 156 mg/dL (70-110)
[2022-03-14 11:37] VITALS: RESP 18; TEMP 97.6
--- NOTE | 2022-03-14 11:38 | P.PN ---
Subjective Patient is seen in follow-up for acute kidney injury on chronic kidney disease. Renal function better. Potassium also improved. Patient is currently on IV Lasix. Has a Eubanks catheter. Nonoliguric. Denies vomiting or diarrhea today. Oral intake is fair. Vital signs are stable. General: Awake. No acute distress. HEENT: Head exam is unremarkable. LUNGS: Breath sounds decreased. HEART: Rate and Rhythm are regular. ABDOMEN: Soft, distention noted. EXTREMITITES: 2+ edema. Chronic changes noted. Objective - Vital Signs Vital signs: Vital Signs Temp 98.4 F 03/14/22 04:25 Pulse 59 L 03/14/22 04:25 Resp 16 03/14/22 04:25 BP 169/67 03/14/22 04:25 Pulse Ox 92 L 03/14/22 04:25 FiO2 Intake & Output 03/13/22 03/14/22 03/14/22 18:59 06:59 18:59 Intake Total 60 Output Total 1000 1500 Balance -1000 -1440 Weight 121.4 kg Intake: Oral 60 Output: Urine 1000 1500 Other: Voiding Method Indwelling Catheter Indwelling Catheter Indwelling Catheter - Labs CBC & Chem 7: 03/14/22 05:26 03/14/22 05:26 Labs: Abnormal Lab Results - Last 24 Hours (Table) 03/13/22 03/13/22 03/13/22 Range/Units 09:40 17:12 17:19 RBC (4.10-5.20) X 10*6/uL Hgb (12.0-15.0) g/dL Hct (37.2-46.3) % MCV (80.0-97.0) fL MCHC (32.0-37.0) g/dL RDW (11.5-14.5) % Lymphocytes # (0.90-5.00) X 10*3/uL Potassium 5.5 H (3.5-5.1) mmol/L Chloride (98-107) mmol/L Carbon Dioxide (22-30) mmol/L BUN (7-17) mg/dL Creatinine (0.52-1.04) mg/dL Glucose (74-99) mg/dL POC Glucose (mg/dL) 162 H (70-110) mg/dL Calcium (8.4-10.2) mg/dL Iron 28 L (50-170) ug/dL Transferrin 165.0 L (204.0-354.0) mg/dL 03/13/22 03/14/22 03/14/22 Range/Units 20:40 05:26 05:26 RBC 2.88 L (4.10-5.20) X 10*6/uL Hgb 8.6 L (12.0-15.0) g/dL Hct 28.9 L (37.2-46.3) % MCV 100.3 H (80.0-97.0) fL MCHC 29.8 L (32.0-37.0) g/dL RDW 15.0 H (11.5-14.5) % Lymphocytes # 0.63 L (0.90-5.00) X 10*3/uL Potassium 5.3 H (3.5-5.1) mmol/L Chloride 113 H (98-107) mmol/L Carbon Dioxide 21 L (22-30) mmol/L BUN 58 H (7-17) mg/dL Creatinine 1.92 H (0.52-1.04) mg/dL Glucose 108 H (74-99) mg/dL POC Glucose (mg/dL) 151 H (70-110) mg/dL Calcium 7.8 L (8.4-10.2) mg/dL Iron (50-170) ug/dL Transferrin (204.0-354.0) mg/dL 03/14/22 03/14/22 Range/Units 07:13 11:05 RBC (4.10-5.20) X 10*6/uL Hgb (12.0-15.0) g/dL Hct (37.2-46.3) % MCV (80.0-97.0) fL MCHC (32.0-37.0) g/dL RDW (11.5-14.5) % Lymphocytes # (0.90-5.00) X 10*3/uL Potassium (3.5-5.1) mmol/L Chloride (98-107) mmol/L Carbon Dioxide (22-30) mmol/L BUN (7-17) mg/dL Creatinine (0.52-1.04) mg/dL Glucose (74-99) mg/dL POC Glucose (mg/dL) 120 H 156 H (70-110) mg/dL Calcium (8.4-10.2) mg/dL Iron (50-170) ug/dL Transferrin (204.0-354.0) mg/dL Assessment and Plan Plan: Assessment: 1. Acute kidney injury secondary to ATN. Renal function better. Creatinine 1.92 today. Nonoliguric. No hydronephrosis noted on kidney ultrasound. 2. Hyperkalemia secondary to acute kidney injury, acidosis. Patient is on IV Lasix and also received dose of lokelma. 3. Uterine cancer with ascites status post paracentesis on 03/10/2022 with 4.7 L drained. 4. Metabolic acidosis secondary to acute kidney injury maintain on oral bicarb. 5. Hypertension with chronic kidney disease. 6. 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 7. Diabetes mellitus. 8. Chronic diastolic CHF. 9. Anemia of chronic any disease. Iron deficiency noted. 10. Urinary retention. Currently is Eubanks catheter. Plan: Maintain IV Lasix - change to torsemide 20 mg once daily upon discharge. Renal diet. Maintain fluid restriction. Maintain Lokelma 10 g daily for now. Hold Coreg for systolic blood pressure less than 120 or heart rate less than 60. Defer further management to primary team. Avoid nephrotoxins. IV iron today. Increase nifedipine to 60 mg twice a day. Hold for systolic blood pressure less than 125. Add Flomax. Plan for trial avoid in 3-4 days at ECF. Repeat BMP and magnesium level 2-3 days postdischarge. Follow up outpatient in 1 week Case discussed with primary team.
[2022-03-14] MEDS ORDERED: TAMSULOSIN 0.4 MG CAP.ER.24H PO SCH (11:45)
[2022-03-14] MEDS ORDERED: SODIUM FERRIC GLUCONAT-SUCROSE 125 MG in SODIUM CHLORIDE 0.9% 100 ML IVPB ONE (12:00)
[2022-03-14 12:26] VITALS: PULSE 64
--- NOTE | 2022-03-14 13:46 | P.DS ---
Providers Date of admission: 03/09/22 11:23 Expected date of discharge: 03/14/22 Attending physician: Sunil Chan MD Consults: 03/11/22 08:22 Consult Physician Routine Consulting Provider: Columba Ernst Consult Reason/Comments: CYNDEE with hyperkalemia Do you want consulting provider notified?: Yes Primary care physician: [facility] Course: 66 year old female with uterine cancer, diastolic CHF preserved LVEF 50-55% was initially sent by her PCP for worsening shortness of breath and increased peripheral edema along with abdominal ascites. Patient was diagnosed with acute on chronic diastolic CHF exacerbation with recurrent abdominal ascites secondary to uterine cancer. She was started on Lasix IV. She underwent successful paracentesis under ultrasound guidance by IR. With regard to her elevated d-dimer, she recently had high probability for PE for which she was started on Eliquis. Venous Doppler was negative for DVT. Patient was noted to have difficulty urinating and worsening renal function. She was noted to have retention of urine and Eubanks catheter was placed. Her creatinine on admission was 1.59 which peaked at 2.17. She was noted to be acidotic with a bicarbonate of 15. She was also noted to be hyperkalemic with a peak potassium of 6.2. Nephrology was consulted. She was given multiple doses of Lokelma. She was also started on bicarbonate supplementation. Her potassium improved to 5.3, Creatinine improved to 1.92 and her bicarbonate improved to 21 at the time of discharge. The case was discussed with Dr. Park on the day of discharge. Her Lasix was transitioned to torsemide 20 mg by mouth daily. She was advised to continue Lokelma 10 g by mouth for 30 days along with sodium bicarbonate 650 mg by mouth 4 times a day. Flomax was also added to her medication regimen. She is advised to repeat a BMP within 3 days and to follow- up with nephrology within 1 week of discharge. Patient also advised renal diet with fluid restriction. Patient was noted to be hypertensive throughout her inpatient stay. Her Coreg was decreased due to asymptomatic bradycardia from 6.25 to 3.125 mg, twice a day. Nifedipine was increased to 60 mg by mouth twice a day. PT and OT evaluated the patient and recommended SNF. Patient was accepted to [facility] on the [place]. She was advised to continue Eubanks catheter and attempt voi ding trial at [facility]. She was subsequently discharged on 03/14/2022. Patient was seen and examined on 03/14/2022. She reported mild abdominal discomfort and bloating. She reported improvement in her lower extremity swelling. She denied any chest pain, shortness breath or palpitations. General: non toxic, no distress, appears at stated age, obese Derm: warm, dry Head: atraumatic, normocephalic, symmetric Eyes: EOMI, no lid lag, anicteric sclera Mouth: no lip lesion, mucus membranes moist Cardiovascular: S1S2 reg, no murmur Lungs: CTA bilateral, no rhonchi, no rales , no accessory muscle use Abdominal: soft, nontender to palpation, no guarding, ascites Ext: no gross muscle atrophy, 1-2+ pitting lower extremity edema, no contractures Neuro: no focal neuro deficits Psych: Alert, oriented, appropriate affect Discharge diagnosis: Acute on chronic diastolic CHF exacerbation Recurrent abdominal ascites, secondary to uterine cancer CYNDEE on CKD Urinary retention Hyperkalemia Metabolic acidosis Uncontrolled hypertension Elevated D dimer with recent diagnosis of high probability PE Type 2 diabetes mellitus Chronic iron deficiency anemia This complex discharge took about 45 minutes to complete. Pertinent Studies: Venous Doppler Abdominal US CXR Bladder US Procedures: Paracentesis Patient Condition at Discharge: Stable Plan - Discharge Summary Discharge Rx Participant: No New Discharge Prescriptions: New Docusate [Colace] 100 mg PO BID PRN cap PRN Reason: Constipation Sodium Zirconium Cyclosilicate [Lokelma] 10 gm PO DAILY #30 Calcium Carbonate [Tums] 1,000 mg PO Q4HR PRN tab PRN Reason: Dyspepsia Acetaminophen Tab [Tylenol] 650 mg PO Q6HR PRN tab PRN Reason: Mild Pain Or Fever > 100.5 carvediloL [Coreg] 3.125 mg PO BID tab Tamsulosin [Flomax] 0.4 mg PO PC-BRKFST cap Melatonin 3 mg PO HS PRN tab PRN Reason: Insomnia Sodium Bicarbonate Tab 650 mg PO QID tab Torsemide [Demadex] 20 mg PO DAILY #30 tablet NIFEdipine XL [Procardia XL] 60 mg PO Q12HR tab Continue Linagliptin [Tradjenta] 5 mg PO DAILY Isosorbide Mononitrate ER [Imdur] 30 mg PO DAILY tablet Insulin Lispro [humaLOG Kwikpen] See Protocol SQ ACHS Apixaban [Eliquis] 5 mg PO BID 30 Days #60 tab HYDROcodone/APAP 5-325MG [Venus 5-325] 1 tab PO TID PRN #9 tab PRN Reason: Pain allopurinoL [Zyloprim] 100 mg PO DAILY Ferrous Sulfate [Iron (65 MG Elemental)] 325 mg PO DAILY Cholestyramine/Aspartame [Cholestyramine Light Packet] 4 gm PO DAILY Discontinued carvediloL [Coreg] 6.25 mg PO BID Furosemide [Lasix] 40 mg PO DAILY 30 Days #30 tab NIFEdipine XL [Procardia XL] 60 mg PO DAILY Discharge Medication List allopurinoL [Zyloprim] 100 mg PO DAILY 12/16/20 [History] Linagliptin [Tradjenta] 5 mg PO DAILY 08/02/21 [History] Isosorbide Mononitrate ER [Imdur] 30 mg PO DAILY tablet 08/09/21 [Rx] Ferrous Sulfate [Iron (65 MG Elemental)] 325 mg PO DAILY 10/11/21 [History] Insulin Lispro [humaLOG Kwikpen] See Protocol SQ ACHS 12/10/21 [History] Apixaban [Eliquis] 5 mg PO BID 30 Days #60 tab 12/20/21 [Rx] Cholestyramine/Aspartame [Cholestyramine Light Packet] 4 gm PO DAILY 03/07/22 [History] Acetaminophen Tab [Tylenol] 650 mg PO Q6HR PRN tab 03/14/22 [Rx] Calcium Carbonate [Tums] 1,000 mg PO Q4HR PRN tab 03/14/22 [Rx] Docusate [Colace] 100 mg PO BID PRN cap 03/14/22 [Rx] HYDROcodone/APAP 5-325MG [Venus 5-325] 1 tab PO TID PRN #9 tab 03/14/22 [Rx] Melatonin 3 mg PO HS PRN tab 03/14/22 [Rx] NIFEdipine XL [Procardia XL] 60 mg PO Q12HR tab 03/14/22 [Rx] Sodium Bicarbonate Tab 650 mg PO QID tab 03/14/22 [Rx] Sodium Zirconium Cyclosilicate [Lokelma] 10 gm PO DAILY #30 03/14/22 [Rx] Tamsulosin [Flomax] 0.4 mg PO PC-BRKFST cap 03/14/22 [Rx] Torsemide [Demadex] 20 mg PO DAILY #30 tablet 03/14/22 [Rx] carvediloL [Coreg] 3.125 mg PO BID tab 03/14/22 [Rx] Follow up Appointment(s)/Referral(s): Yash Park DO [STAFF PHYSICIAN] - 1 Week Delroy Lawrence DO [Primary Care Provider] - 1-2 days Ambulatory/Diagnostic Orders: Basic Metabolic Panel [LAB.AMB] Time Frame: 3 Days, Location: None Selected Activity/Diet/Wound Care/Special Instructions: Diet: Renal with Fluid restriction (1500 cc/day) FU PCP within 1-2 days of DC. FU Nephrology within 1 week of DC. Repeat BMP in 3 days. Results to PCP. Discharge Disposition: TRANSFER TO SNF/ECF
[2022-03-14 14:21] VITALS: BP 177/72
[2022-03-14] MEDS ORDERED: carvediloL 3.125 MG TAB PO SCH (17:30)
== END 2022-03-14 16:50 | DRG 291 ==
LOC: EC 12:12 → INTOOBSV 18:16 → 5NMEDONC 18:16 → OBSVTOIN 03-09 11:23
PROVIDERS: ADMIT Internal Medicine; ATTEND Internal Medicine
PROC: 0W9G3ZZ Drainage of Peritoneal Cavity, Percutaneous Approach (ICD-10-PCS; principal; 2022-03-10)
DX: I13.0 Hypertensive heart and chronic kidney disease with heart failure and stage 1 through stage 4 chronic kidney disease, or unspecified chronic kidney disease (principal); I50.33 Acute on chronic diastolic (congestive) heart failure; N17.0 Acute kidney failure with tubular necrosis; E87.2 Acidosis; I31.3 Pericardial effusion (noninflammatory); R18.0 Malignant ascites; N18.4 Chronic kidney disease, stage 4 (severe); E11.22 Type 2 diabetes mellitus with diabetic chronic kidney disease; C54.1 Malignant neoplasm of endometrium; Z92.3 Personal history of irradiation; D50.9 Iron deficiency anemia, unspecified; E78.5 Hyperlipidemia, unspecified; E87.5 Hyperkalemia; F32.A Depression, unspecified; M10.9 Gout, unspecified; R33.9 Retention of urine, unspecified; D63.1 Anemia in chronic kidney disease; E86.9 Volume depletion, unspecified; N28.1 Cyst of kidney, acquired; J44.9 Chronic obstructive pulmonary disease, unspecified; Z79.4 Long term (current) use of insulin; Z79.01 Long term (current) use of anticoagulants; Z79.84 Long term (current) use of oral hypoglycemic drugs; Z79.899 Other long term (current) drug therapy; Z82.49 Family history of ischemic heart disease and other diseases of the circulatory system
CPT/HCPCS: 49083; 71045; 71046; 76705; 76770; 80048; 80053; 81001; 82728; 83540; 83550; 83605; 83735; 83880; 84132; 84484; 85025; 85610; 85730; 86304; 93970; 94760; 96374; 96375; 99285

== ENCOUNTER → 2022-03-30 | Outpatient (CLI) | payer MEDICARE, BC ==
[2022-03-30 18:34] LABS: Basophils # (A) 0.04 X 10*3/uL (0.00-0.10); Basophils % (A) 0.7 %; Eosinophils # (A) 0.19 X 10*3/uL (0.04-0.35); Eosinophils % (A) 3.2 %; HCT 32.4 % (37.2-46.3); HGB 9.5 g/dL (12.0-15.0); Immature Grans, Automated 0.3 %; Lymphocytes # (A) 0.45 X 10*3/uL (0.90-5.00); Lymphocytes % (A) 7.6 %; MCH 30.1 pg (27.0-32.0); MCHC 29.3 g/dL (32.0-37.0); MCV 102.5 fL (80.0-97.0); Mean Platelet Volume 10.3 fL (9.5-12.2); Monocytes # (A) 0.31 X 10*3/uL (0.20-1.00); Monocytes % (A) 5.2 %; NRBC Per 100 WBC 0 /100 WBCS (0.0-0.0); Neutrophils # (A) 4.94 X 10*3/uL (1.80-7.70); Platelet Count 246 X 10*3/uL (140-440); RBC 3.16 X 10*6/uL (4.10-5.20); RDW 14.9 % (11.5-14.5); WBC 5.95 X 10*3/uL (4.50-10.00)
[2022-03-30 18:52] LABS: ALT 9 U/L (8-44); AST 13 U/L (13-35); African American GFR (CKD) 31.1 (60.0-200.0); Albumin 3.5 g/dL (3.8-4.9); Albumin/Globulin Ratio 1.35 (1.60-3.17); Alkaline Phosphatase 147 U/L (41-126); BUN/Creat Ratio 30.95 Ratio (12.00-20.00); Blood Urea Nitrogen 58.8 mg/dL (9.0-27.0); Calcium 8.1 mg/dL (8.7-10.3); Carbon Dioxide 21.1 mmol/L (20.0-27.5); Chloride 107 mmol/L (96-109); Globulin 2.6 g/dL (1.6-3.3); Glucose 125 mg/dL (70-110); Non-African American GFR(CKD) 26.8 (60.0-200.0); Potassium 4.8 mmol/L (3.5-5.5); Sodium 138 mmol/L (135-145); Total Bilirubin <0.15 mg/dL (0.30-1.20); Total Protein 6.1 g/dL (6.2-8.2)
== END | disposition home or self-care (01) ==
LOC: LABWHC1 10:56
PROVIDERS: ATTEND Internal Medicine Hematology & Oncology
DX: Z71.3 Dietary counseling and surveillance (principal); E11.9 Type 2 diabetes mellitus without complications
CPT/HCPCS: 36415; 80053; 85025; 86304

== ENCOUNTER → 2022-04-03 | Outpatient (CLI) | payer MEDICARE, BC ==
--- NOTE | 2022-04-03 12:51 | CT ---
EXAMINATION TYPE: CT ChestAbdPelvis w con DATE OF EXAM: 04/03/2022 COMPARISON: Chest CT December 19, 2021 and older CTs HISTORY: Uterine cancer CT DLP: 1541 mGycm. Automated Exposure Control for Dose Reduction was Utilized. CONTRAST: CT scan of the thorax, abdomen and pelvis is performed with oral but without IV contrast due to dimin ished renal function. FINDINGS: Within limitations of a noncontrast study, following observations are made. Evaluation slig htly suboptimal particularly abdomen and pelvis suboptimal due to large body habitus. LUNGS: Small bilateral pleural effusions are redemonstrated. There is left basilar opacity favoring a ssociated compressive atelectasis. No suspicious pulmonary masses. MEDIASTINUM: There are no definitive greater than 1 cm mediastinal lymph nodes. Cardiomegaly is redem onstrated. Small pericardial effusion again seen. OTHER: Severe diffuse soft tissue anasarca redemonstrated. LIVER/GB: Gallbladder has dependent density suggesting small stones and/or gallbladder sludge similar to prior. PANCREAS: No significant abnormality is seen. SPLEEN: No significant abnormality is seen. ADRENALS: No significant abnormality is seen. KIDNEYS: No significant abnormality is seen. BOWEL: Oral contrast only reaches jejunal loops in the abdomen. Suboptimal evaluation due to artifact from body habitus and severe subcutaneous edema. No obvious abnormal small or large bowel dilatation . GENITAL ORGANS: Suspect evaluation at this level. Suspect anteverted uterus with superior Calcificati on axial image 95 favors fundal subserosal fibroid correlating with prior CT. LYMPH NODES: Suboptimal evaluation due to body habitus and extensive subcutaneous edema. No definitiv e greater than 1cm abdominal or pelvic lymph nodes are appreciated. OSSEOUS STRUCTURES: Severe disc space narrowing lumbosacral junction. Multilevel spurring in the thoracic spine redemonstrated. OTHER: Small moderate amount of ascites around the liver and spleen extending into the paracolic gutt ers and into the pelvis. Severe diffuse soft tissue swelling and/or anasarca. Small vessel arterial c alcification in the abdomen noted suggests long-standing chronic medical renal disease or dialysis. C orrelate clinically. IMPRESSION: Suboptimal study due to body habitus along with severe diffuse soft tissue swelling and/o r anasarca. Correlate for poor cardiac output. Uterus remains present with small calcified subserosal fibroid redemonstrated. No definitive mass or adenopathy to suggest metastatic disease.
== END | disposition home or self-care (01) ==
LOC: RADCTMAIN 08:42
PROVIDERS: ATTEND Internal Medicine Hematology & Oncology
DX: C54.9 Malignant neoplasm of corpus uteri, unspecified (principal)
CPT/HCPCS: 36415; 71260; 74177; 82565; 84520

== ENCOUNTER 2022-04-11 12:13 | Observation (INO) | payer MEDICARE, BC ==
[2022-04-11] MEDS ORDERED: HYDROmorphone 0.5 MG/0.5 ML SYRINGE IVP STA (12:46)
[2022-04-11] MEDS ORDERED: SODIUM CHLORIDE 0.9% 500 ML 500 ML IV STA (12:46)
--- NOTE | 2022-04-11 12:55 | ED ---
General Adult HPI - General Chief complaint: Abdominal Pain Stated complaint: fluid in stomach Time Seen by Provider: 04/11/22 12:35 Source: patient, RN notes reviewed, old records reviewed Mode of arrival: wheelchair Limitations: no limitations - History of Present Illness Initial comments: This is a 67-year-old female who presents emergency Department with a known history of uterine cancer. Patient states it spread all through her abdomen. Patient states she gets ascites that she needs a paracentesis. Patient went to see her oncologist today and they sent her in to get a paracentesis. Patient states she doesn't have any significant pain currently is just the distention and the pressure. Patient states she has chronic diarrhea but she's had no vomiting or nausea. Patient denies any recent fever or chills. Patient denies any dysuria hematuria urinary frequency. Patient denies any chest pain difficulty breathing shortness of breath. - Related Data Home Medications Medication Instructions Recorded Confirmed allopurinoL [Zyloprim] 100 mg PO DAILY 12/16/20 04/11/22 Linagliptin [Tradjenta] 5 mg PO DAILY 08/02/21 04/11/22 Ferrous Sulfate [Iron (65 MG 325 mg PO DAILY 10/11/21 04/11/22 Elemental)] Insulin Lispro [humaLOG Kwikpen] See Protocol SQ ACHS 12/10/21 04/11/22 Cholestyramine/Aspartame 4 gm PO DAILY PRN 03/07/22 04/11/22 [Cholestyramine Light Packet] Furosemide [Lasix] 40 mg PO BID 04/11/22 04/11/22 Isosorbide Mononitrate ER [Imdur] 30 mg PO DAILY 04/11/22 04/11/22 NIFEdipine XL [Procardia XL] 60 mg PO DAILY 04/11/22 04/11/22 Sodium Bicarbonate Tab 650 mg PO BID 04/11/22 04/11/22 carvediloL [Coreg] 6.25 mg PO BID 04/11/22 04/11/22 Previous Rx's Medication Instructions Recorded Apixaban [Eliquis] 5 mg PO BID 30 Days #60 tab 12/20/21 Acetaminophen Tab [Tylenol] 650 mg PO Q6HR PRN tab 03/14/22 Calcium Carbonate [Tums] 1,000 mg PO Q4HR PRN tab 03/14/22 Docusate [Colace] 100 mg PO BID PRN cap 03/14/22 HYDROcodone/APAP 5-325MG [[place] 1 tab PO TID PRN #9 tab 03/14/22 5-325] Melatonin 3 mg PO HS PRN tab 03/14/22 Allergies Allergy/AdvReac Type Severity Reaction Status Date / Time No Known Allergies Allergy Verified 04/11/22 14:02 Review of Systems ROS Statement: Those systems with pertinent positive or pertinent negative responses have been documented in the HPI. ROS Other: All systems not noted in ROS Statement are negative. Past Medical History Past Medical History: Cancer, Heart Failure, Diabetes Mellitus, Hyperlipidemia, Hypertension, Renal Disease Additional Past Medical History / Comment(s): anemia, pulmonary edema, gout, weakness, uterine Ca, ascites History of Any Multi-Drug Resistant Organisms: None Reported Past Surgical History: No Surgical Hx Reported Past Anesthesia/Blood Transfusion Reactions: No Reported Reaction Past Psychological History: Depression Smoking Status: Never smoker Past Alcohol Use History: None Reported Past Drug Use History: None Reported - Past Family History Father Family Medical History: Myocardial Infarction (PA) Additional Family Medical History / Comment(s): father of PA at 58 years old Mother Family Medical History: No Reported History Additional Family Medical History / Comment(s): mother of old age at 95 years old General Exam - General Exam Comments Initial Comments: GENERAL: Patient is well-developed and well-nourished. Patient is nontoxic and well- hydrated and is in no acute distress. ENT: Neck is soft and supple. No significant lymphadenopathy is noted. Oropharynx is clear. Moist mucous membranes. Neck has full range of motion without eliciting any pain. EYES: The sclera were anicteric and conjunctiva were pink and moist. Extraocular movements were intact and pupils were equal round and reactive to light. Eyelids were unremarkable. PULMONARY: Unlabored respirations. Good breath sounds bilaterally. No audible rales rhonchi or wheezing was noted. CARDIOVASCULAR: There is a regular rate and rhythm without any murmurs gallops or rubs. ABDOMEN: Abdomen significantly distended and is talked consistent with ascites. SKIN: Skin is clear with no lesions or rashes and otherwise unremarkable. NEUROLOGIC: Patient is alert and oriented x3. Cranial nerves II through XII are grossly intact. Motor and sensory are also intact. Normal speech, volume and content. Symmetrical smile. MUSCULOSKELETAL: Normal extremities with adequate strength and full range of motion. Edema of both legs are wrapped. LYMPHATICS: No significant lymphadenopathy is noted PSYCHIATRIC: Normal psychiatric evaluation. Limitations: no limitations Course Vital Signs 04/11/22 12:24 Temperature 97.6 F Pulse Rate 69 Respiratory 16 Rate Blood Pressure 185/68 O2 Sat by Pulse 96 Oximetry Medical Decision Making - Lab Data Result diagrams: 04/11/22 14:51 04/11/22 14:51 Lab Results 04/11/22 04/11/22 04/11/22 Range/Units 14:51 14:51 14:51 WBC 6.1 (3.8-10.6) k/uL RBC 3.64 L (3.80-5.40) m/uL Hgb 10.9 L (11.4-16.0) gm/dL Hct 35.9 (34.0-46.0) % MCV 98.6 (80.0-100.0) fL MCH 29.9 (25.0-35.0) pg MCHC 30.3 L (31.0-37.0) g/dL RDW 14.8 (11.5-15.5) % Plt Count 227 (150-450) k/uL MPV 8.7 Neutrophils % 84 % Lymphocytes % 9 % Monocytes % 3 % Eosinophils % 3 % Basophils % 1 % Neutrophils # 5.1 (1.3-7.7) k/uL Lymphocytes # 0.5 L (1.0-4.8) k/uL Monocytes # 0.2 (0-1.0) k/uL Eosinophils # 0.2 (0-0.7) k/uL Basophils # 0.1 (0-0.2) k/uL Hypochromasia Marked PT 10.7 (9.0-12.0) sec INR 1.0 (<1.2) APTT 25.6 (22.0-30.0) sec Sodium 139 (137-145) mmol/L Potassium 4.4 (3.5-5.1) mmol/L Chloride 109 H (98-107) mmol/L Carbon Dioxide 19 L (22-30) mmol/L Anion Gap 11 mmol/L BUN 46 H (7-17) mg/dL Creatinine 1.69 H (0.52-1.04) mg/dL Est GFR (CKD-EPI)AfAm 36 (>60 ml/min/1.73 sqM) Est GFR (CKD-EPI)NonAf 31 (>60 ml/min/1.73 sqM) Glucose 99 (74-99) mg/dL Calcium 8.3 L (8.4-10.2) mg/dL Total Bilirubin 0.3 (0.2-1.3) mg/dL AST 18 (14-36) U/L ALT 10 (4-34) U/L Alkaline Phosphatase 156 H (38-126) U/L Total Protein 6.2 L (6.3-8.2) g/dL Albumin 3.4 L (3.5-5.0) g/dL Amylase 37 (30-110) U/L Lipase 17 L (23-300) U/L Disposition Clinical Impression: History of uterine cancer, Ascites Disposition: ADMITTED IP TO THIS HOSP Referrals: Delroy Lawrence DO [Primary Care Provider] - 1-2 days Time of Disposition: 15:23
[2022-04-11 15:08] LABS: Albumin 3.4 g/dL (3.5-5.0); Calcium 8.3 mg/dL (8.4-10.2); Potassium 4.4 mmol/L (3.5-5.1); Total Bilirubin 0.3 mg/dL (0.2-1.3); Total Protein 6.2 g/dL (6.3-8.2)
[2022-04-11 15:09] LABS: Partial Thromboplastin Time 25.6 sec (22.0-30.0); Prothrombin Time 10.7 sec (9.0-12.0)
[2022-04-11 15:15] LABS: Basophils # (A) 0.1 k/uL (0-0.2); Basophils % (A) 1 %; Eosinophils # (A) 0.2 k/uL (0-0.7); Eosinophils % (A) 3 %; HCT 35.9 % (34.0-46.0); HGB 10.9 gm/dL (11.4-16.0); Hypochromasia Marked; Lymphocytes # (A) 0.5 k/uL (1.0-4.8); Lymphocytes % (A) 9 %; MCH 29.9 pg (25.0-35.0); MCHC 30.3 g/dL (31.0-37.0); MCV 98.6 fL (80.0-100.0); Mean Platelet Volume 8.7; Monocytes # (A) 0.2 k/uL (0-1.0); Monocytes % (A) 3 %; Neutrophils # (A) 5.1 k/uL (1.3-7.7); Neutrophils % (A) 84 %; Platelet Count 227 k/uL (150-450); RBC 3.64 m/uL (3.80-5.40); RDW 14.8 % (11.5-15.5); WBC 6.1 k/uL (3.8-10.6)
[2022-04-11] MEDS ORDERED: SODIUM CHLORIDE 0.9% 1,000 ML IV ONE (15:24)
[2022-04-11] MEDS ORDERED: MELATONIN 3 MG TABLET PO PRN (15:28)
[2022-04-11 17:22] LABS: Glucose,Whole Blood 100 mg/dL (70-110)
[2022-04-11] MEDS: carvediloL 6.25 MG TAB PO SCH (17:42)
[2022-04-11] MEDS: HYDROcodone/APAP 5-325MG 1 EACH TAB PO PRN (17:53)
[2022-04-11] MEDS ORDERED: FUROSEMIDE 40 MG TAB PO SCH (18:00)
--- NOTE | 2022-04-11 18:35 | P.HPIM ---
History of Present Illness H&P Date: 04/11/22 66 year old female with uterine cancer, diastolic CHF preserved LVEF 50-55%, hypertension, diabetes mellitus, chronic kidney disease was initially sent by her PCP for worsening shortness of breath and increased peripheral edema along with abdominal ascites. She was sent here by her oncologist for therapeutic paracentesis. Patient reports no other complaints. She denies any headache, nausea or vomiting, fever or chills, cough, chest pain, shortness of breath, palpitations, changes in urination or bowel habits. No changes in appetite or weight. She denies any dizziness, numbness/weakness/tingling of the extremities. In the ED, her vital signs are stable with a SBP of 185. CBC showed hemoglobin of 10.9. Coagulation panel negative. CMP showed chloride of 109, bicarb of 19, BUN of 46, creatinine 1.69, calcium of 8.3, alkaline phosphatase 156, albumin at 3.4. Amylase and lipase negative. Review of systems is performed and is negative except above. General: non toxic, no distress, appears at stated age Derm: warm, dry Head: atraumatic, normocephalic, symmetric Eyes: EOMI, no lid lag, anicteric sclera Mouth: no lip lesion, mucus membranes moist Cardiovascular: S1S2 reg, no murmur Lungs: CTA bilateral, no rhonchi, no rales , no accessory muscle use Abdominal: soft, distended, no guarding, no appreciable organomegaly Ext: no gross muscle atrophy, 2+ pitting bilateral lower extremity edema with JANAE wrap, no contractures Neuro: no focal neuro deficits Psych: Alert, oriented, appropriate affect #Recurrent abdominal ascites, secondary to uterine cancer #CKD #Diastolic CHF exacerbation #Hypertension #Type 2 diabetes mellitus #Chronic iron deficiency anemia Interventional radiology will be consulted for therapeutic paracentesis. Eliquis will be placed on hold for today. Patient started on Lasix 40 mg IV twice a day. Her creatinine is at baseline. Renal ultrasound her previous admission suggest medical renal disease without obstruction. We will discontinue IVF. Echocardiogram done in August 2021 shows EF of 50-55% with mild ventricular wall thickness. Continue Coreg, Imdur, nifedipine. Monitor vitals, adjust medication if necessary. Patient started on low-dose insulin sliding scale along with Accu-Cheks 4 times a day and hypoglycemic precautions. Patient restarted on ferrous sulfate. DVT prophylaxis: SCD Discussed with: Patient Anticipated discharge: 1-2 days Past Medical History Past Medical History: Cancer, Heart Failure, Diabetes Mellitus, Hyperlipidemia, Hypertension, Renal Disease Additional Past Medical History / Comment(s): anemia, pulmonary edema, gout, weakness, uterine Ca, ascites History of Any Multi-Drug Resistant Organisms: None Reported Past Surgical History: No Surgical Hx Reported Past Anesthesia/Blood Transfusion Reactions: No Reported Reaction Past Psychological History: Depression Smoking Status: Never smoker Past Alcohol Use History: None Reported Past Drug Use History: None Reported - Past Family History Father Family Medical History: Myocardial Infarction (CO) Additional Family Medical History / Comment(s): father of CO at 58 years old Mother Family Medical History: No Reported History Additional Family Medical History / Comment(s): mother of old age at 95 years old Medications and Allergies Home Medications Medication Instructions Recorded Confirmed Type allopurinoL [Zyloprim] 100 mg PO DAILY 12/16/20 04/11/22 History Linagliptin [Tradjenta] 5 mg PO DAILY 08/02/21 04/11/22 History Ferrous Sulfate [Iron (65 MG 325 mg PO DAILY 10/11/21 04/11/22 History Elemental)] Insulin Lispro [humaLOG Kwikpen] See Protocol SQ ACHS 12/10/21 04/11/22 History Apixaban [Eliquis] 5 mg PO BID 30 Days #60 tab 12/20/21 04/11/22 Rx Cholestyramine/Aspartame 4 gm PO DAILY PRN 03/07/22 04/11/22 History [Cholestyramine Light Packet] Acetaminophen Tab [Tylenol] 650 mg PO Q6HR PRN tab 03/14/22 04/11/22 Rx Calcium Carbonate [Tums] 1,000 mg PO Q4HR PRN tab 03/14/22 04/11/22 Rx Docusate [Colace] 100 mg PO BID PRN cap 03/14/22 04/11/22 Rx HYDROcodone/APAP 5-325MG [[place] 1 tab PO TID PRN #9 tab 03/14/22 04/11/22 Rx 5-325] Melatonin 3 mg PO HS PRN tab 03/14/22 04/11/22 Rx Furosemide [Lasix] 40 mg PO BID 04/11/22 04/11/22 History Isosorbide Mononitrate ER [Imdur] 30 mg PO DAILY 04/11/22 04/11/22 History NIFEdipine XL [Procardia XL] 60 mg PO DAILY 04/11/22 04/11/22 History Sodium Bicarbonate Tab 650 mg PO BID 04/11/22 04/11/22 History carvediloL [Coreg] 6.25 mg PO BID 04/11/22 04/11/22 History Allergies Allergy/AdvReac Type Severity Reaction Status Date / Time No Known Allergies Allergy Verified 04/11/22 14:02 Physical Exam Vitals: Vital Signs Temp Pulse Pulse Resp BP BP Pulse Ox 04/11/22 17:45 97.4 F L 82 18 185/74 93 L 04/11/22 16:57 74 18 168/84 96 04/11/22 15:39 73 18 175/82 96 04/11/22 12:24 97.6 F 69 16 185/68 96 Intake and Output 04/11/22 04/11/22 04/11/22 06:59 14:59 22:59 Intake Total 118 Balance 118 Intake: Oral 118 Other: Weight 117.934 kg 117.934 kg Results CBC & Chem 7: 04/11/22 14:51 04/11/22 14:51 Labs: Abnormal Lab Results - Last 24 Hours (Table) 04/11/22 04/11/22 Range/Units 14:51 14:51 RBC 3.64 L (3.80-5.40) m/uL Hgb 10.9 L (11.4-16.0) gm/dL MCHC 30.3 L (31.0-37.0) g/dL Lymphocytes # 0.5 L (1.0-4.8) k/uL Chloride 109 H (98-107) mmol/L Carbon Dioxide 19 L (22-30) mmol/L BUN 46 H (7-17) mg/dL Creatinine 1.69 H (0.52-1.04) mg/dL Calcium 8.3 L (8.4-10.2) mg/dL Alkaline Phosphatase 156 H (38-126) U/L Total Protein 6.2 L (6.3-8.2) g/dL Albumin 3.4 L (3.5-5.0) g/dL Lipase 17 L (23-300) U/L
[2022-04-11] MEDS: FUROSEMIDE 10 MG/ML 4 ML VIAL IV SCH (19:31)
[2022-04-11] MEDS: SODIUM BICARBONATE TAB 650 MG TAB PO SCH (20:03)
[2022-04-11 21:29] LABS: Glucose,Whole Blood 94 mg/dL (70-110)
[2022-04-11] MEDS: INSULIN ASPART (NovoLOG) 100 UNIT/ML VIAL SQ SCH (21:52)
[2022-04-12 07:26] LABS: Glucose,Whole Blood 92 mg/dL (70-110)
[2022-04-12] MEDS: INSULIN ASPART (NovoLOG) 100 UNIT/ML VIAL SQ SCH ×4 (09:16→19:51)
[2022-04-12] MEDS: carvediloL 6.25 MG TAB PO SCH ×2 (09:27→17:43)
[2022-04-12] MEDS: FERROUS SULFATE 325 MG TAB PO SCH (09:27)
[2022-04-12] MEDS: ISOSORBIDE MONONITRATE ER 30 MG TAB.ER.24H PO SCH (09:27)
[2022-04-12] MEDS: SODIUM BICARBONATE TAB 650 MG TAB PO SCH ×2 (09:27→19:50)
[2022-04-12] MEDS: allopurinoL 100 MG TAB PO SCH (09:27)
[2022-04-12] MEDS ORDERED: hydrALAZINE HCL 25 MG TAB PO STA (10:39)
[2022-04-12 12:31] LABS: Glucose,Whole Blood 101 mg/dL (70-110)
--- NOTE | 2022-04-12 12:39 | US ---
EXAMINATION TYPE: US abdomen limited DATE OF EXAM: 04/12/2022 COMPARISON: NONE CLINICAL HISTORY: 67-year-old female distention, assess ascites for for paracentesis. TECHNIQUE: Multiple sonographic images of the 4 abdominal quadrants were obtained. FINDINGS: Images show some body wall edema/anasarca change. Moderate ascites. IMPRESSION: Moderate abdominal ascites with anasarca.
[2022-04-12] MEDS: HYDROcodone/APAP 5-325MG 1 EACH TAB PO PRN ×2 (13:06→20:46)
[2022-04-12] MEDS ORDERED: hydrALAZINE HCL 25 MG TAB PO PRN ×2 (13:07→16:07)
[2022-04-12] MEDS: FUROSEMIDE 10 MG/ML 4 ML VIAL IV SCH ×2 (14:41→19:50)
--- NOTE | 2022-04-12 16:48 | P.PN ---
Subjective Progress Note Date: 04/12/22 Patient was seen and examined. No acute events overnight. Patient reports no changes in her clinical condition. Her BP has been consistently elevated with SBP in the 190-200s this morning. She denies any headache or chest pain. General: non toxic, no distress, appears at stated age Derm: warm, dry Head: atraumatic, normocephalic, symmetric Eyes: EOMI, no lid lag, anicteric sclera Mouth: no lip lesion, mucus membranes moist Cardiovascular: S1S2 reg, no murmur Lungs: CTA bilateral, no rhonchi, no rales , no accessory muscle use Abdominal: soft, distended, no guarding, no appreciable organomegaly Ext: no gross muscle atrophy, 2+ pitting bilateral lower extremity edema with JANAE wrap, no contractures Neuro: no focal neuro deficits Psych: Alert, oriented, appropriate affect #Recurrent abdominal ascites, secondary to uterine cancer #CKD #Diastolic CHF exacerbation #Hypertensive urgency #Type 2 diabetes mellitus #Chronic iron deficiency anemia Interventional radiology will be consulted for therapeutic paracentesis. Eliquis will be placed on hold for today. Patient started on Lasix 40 mg IV twice a day. Her creatinine is at baseline. Renal ultrasound her previous admission suggest medical renal disease without obstruction. We will discontinue IVF. Echocardiogram done in August 2021 shows EF of 50-55% with mild ventricular wall thickness. Continue Coreg, Imdur, nifedipine. Added Hydralazine by mouth as needed with parameters. Suspect anxiety component. Monitor vitals, adjust medication if necessary. Patient started on low-dose insulin sliding scale along with Accu-Cheks 4 times a day and hypoglycemic precautions. Patient restarted on ferrous sulfate. Paracentesis unable to be done due to elevated BP. Medications adjusted. Anticipate DC tomorrow after paracentesis given been BP control. DVT prophylaxis: SCD Discussed with: Patient Anticipated discharge: 1-2 days Objective - Vital Signs Vital signs: Vital Signs Temp 97.6 F 04/12/22 14:29 Pulse 75 04/12/22 14:29 Resp 18 04/12/22 14:29 BP 174/73 04/12/22 16:22 Pulse Ox 97 04/12/22 14:29 FiO2 Intake & Output 04/11/22 04/12/22 04/12/22 18:59 06:59 18:59 Intake Total 118 Output Total 200 Balance 118 -200 Weight 117.934 kg Intake: Oral 118 Output: Urine 200 Other: Voiding Method Bedside Commode Diaper Incontinent External Catheter # Voids 5 3 - Labs CBC & Chem 7: 04/11/22 14:51 04/11/22 14:51
[2022-04-12 17:28] LABS: Glucose,Whole Blood 98 mg/dL (70-110)
[2022-04-12 19:53] LABS: Glucose,Whole Blood 120 mg/dL (70-110)
[2022-04-13 07:37] LABS: Glucose,Whole Blood 80 mg/dL (70-110)
[2022-04-13] MEDS: INSULIN ASPART (NovoLOG) 100 UNIT/ML VIAL SQ SCH ×2 (08:22→12:34)
[2022-04-13] MEDS: ISOSORBIDE MONONITRATE ER 30 MG TAB.ER.24H PO SCH (08:35)
[2022-04-13] MEDS: HYDROcodone/APAP 5-325MG 1 EACH TAB PO PRN ×2 (08:35→16:46)
[2022-04-13] MEDS: FERROUS SULFATE 325 MG TAB PO SCH (08:36)
[2022-04-13] MEDS: allopurinoL 100 MG TAB PO SCH (08:36)
[2022-04-13] MEDS: FUROSEMIDE 10 MG/ML 4 ML VIAL IV SCH ×2 (08:36→08:38)
[2022-04-13] MEDS: SODIUM BICARBONATE TAB 650 MG TAB PO SCH (08:36)
[2022-04-13] MEDS: carvediloL 6.25 MG TAB PO SCH (08:36)
[2022-04-13 09:41] VITALS: TEMP 98.3
[2022-04-13] MEDS ORDERED: LORazepam 1 MG TAB PO STA (10:54)
--- NOTE | 2022-04-13 11:46 | P.DS ---
Providers Date of admission: 04/11/22 15:36 Expected date of discharge: 04/13/22 Attending physician: Didier Schuler MD Consults: 04/11/22 15:24 Consult Physician Urgent Consulting Provider: [facility] Consult Reason/Comments: Paracentesis Do you want consulting provider notified?: Yes 04/11/22 17:04 Consult to Palliative Care Routine Consulting Provider: Isela Farias Consult Reason/Comments: Goals of care Do you want consulting provider notified?: Yes Primary care physician: [facility] Course: 66 year old female with uterine cancer, diastolic CHF preserved LVEF 50-55%, hypertension, diabetes mellitus, chronic kidney disease was initially sent by her PCP for worsening shortness of breath and increased peripheral edema along with abdominal ascites. She was sent here by her oncologist for therapeutic paracentesis. Patient reports no other complaints. She denies any headache, nausea or vomiting, fever or chills, cough, chest pain, shortness of breath, palpitations, changes in urination or bowel habits. No changes in appetite or weight. She denies any dizziness, numbness/weakness/tingling of the extremities. In the ED, her vital signs are stable with a SBP of 185. CBC showed hemoglobin of 10.9. Coagulation panel negative. CMP showed chloride of 109, bicarb of 19, BUN of 46, creatinine 1.69, calcium of 8.3, alkaline phosp hatase 156, albumin at 3.4. Amylase and lipase negative. Interventional radiology was consulted for therapeutic paracentesis which was performed on 04/13/2022. Her procedure was delayed due to elevated BP, for which she was started on hydralazine. Pertinent studies include abdominal ultrasound. Patient was seen and examined this morning. No acute events overnight. Patient reports no complaints. Anxious about her paracentesis. Looking forward to going home. General: non toxic, no distress, appears at stated age Derm: warm, dry Head: atraumatic, normocephalic, symmetric Eyes: EOMI, no lid lag, anicteric sclera Mouth: no lip lesion, mucus membranes moist Cardiovascular: S1S2 reg, no murmur Lungs: CTA bilateral, no rhonchi, no rales , no accessory muscle use Abdominal: soft, distended, no guarding, no appreciable organomegaly Ext: no gross muscle atrophy, 2+ pitting bilateral lower extremity edema with JANAE wrap, no contractures Neuro: no focal neuro deficits Psych: Alert, oriented, appropriate affect Discharge Diagnosis: #Recurrent abdominal ascites, secondary to uterine cancer #CKD #Diastolic CHF exacerbation #Hypertension #Type 2 diabetes mellitus #Chronic iron deficiency anemia Patient Condition at Discharge: Stable Plan - Discharge Summary New Discharge Prescriptions: No Action Linagliptin [Tradjenta] 5 mg PO DAILY Insulin Lispro [humaLOG Kwikpen] See Protocol SQ ACHS Apixaban [Eliquis] 5 mg PO BID 30 Days #60 tab Docusate [Colace] 100 mg PO BID PRN cap PRN Reason: Constipation Calcium Carbonate [Tums] 1,000 mg PO Q4HR PRN tab PRN Reason: Dyspepsia Acetaminophen Tab [Tylenol] 650 mg PO Q6HR PRN tab PRN Reason: Mild Pain Or Fever > 100.5 HYDROcodone/APAP 5-325MG [[place] 5-325] 1 tab PO TID PRN #9 tab PRN Reason: Pain Furosemide [Lasix] 40 mg PO BID Isosorbide Mononitrate ER [Imdur] 30 mg PO DAILY allopurinoL [Zyloprim] 100 mg PO DAILY Ferrous Sulfate [Iron (65 MG Elemental)] 325 mg PO DAILY Cholestyramine/Aspartame [Cholestyramine Light Packet] 4 gm PO DAILY PRN PRN Reason: Diarrhea Melatonin 3 mg PO HS PRN tab PRN Reason: Insomnia carvediloL [Coreg] 6.25 mg PO BID Sodium Bicarbonate Tab 650 mg PO BID NIFEdipine XL [Procardia XL] 60 mg PO DAILY Discharge Medication List allopurinoL [Zyloprim] 100 mg PO DAILY 12/16/20 [History] Linagliptin [Tradjenta] 5 mg PO DAILY 08/02/21 [History] Ferrous Sulfate [Iron (65 MG Elemental)] 325 mg PO DAILY 10/11/21 [History] Insulin Lispro [humaLOG Kwikpen] See Protocol SQ ACHS 12/10/21 [History] Apixaban [Eliquis] 5 mg PO BID 30 Days #60 tab 12/20/21 [Rx] Cholestyramine/Aspartame [Cholestyramine Light Packet] 4 gm PO DAILY PRN 03/07 [History] Acetaminophen Tab [Tylenol] 650 mg PO Q6HR PRN tab 03/14/22 [Rx] Calcium Carbonate [Tums] 1,000 mg PO Q4HR PRN tab 03/14/22 [Rx] Docusate [Colace] 100 mg PO BID PRN cap 03/14/22 [Rx] HYDROcodone/APAP 5-325MG [[place] 5-325] 1 tab PO TID PRN #9 tab 03/14/22 [Rx] Melatonin 3 mg PO HS PRN tab 03/14/22 [Rx] Furosemide [Lasix] 40 mg PO BID 04/11/22 [History] Isosorbide Mononitrate ER [Imdur] 30 mg PO DAILY 04/11/22 [History] NIFEdipine XL [Procardia XL] 60 mg PO DAILY 04/11/22 [History] Sodium Bicarbonate Tab 650 mg PO BID 04/11/22 [History] carvediloL [Coreg] 6.25 mg PO BID 04/11/22 [History] Follow up Appointment(s)/Referral(s): Delroy Lawrence DO [Primary Care Provider] - 1-2 days
[2022-04-13 11:55] VITALS: RESP 16
[2022-04-13 12:31] LABS: Glucose,Whole Blood 88 mg/dL (70-110)
--- NOTE | 2022-04-13 15:47 | US ---
Ultrasound-guided paracentesis. DATE OF EXAM: 04/13/2022 CLINICAL HISTORY: Ascites The procedure was discussed with the patient. The risks, complications, benefits, and alternatives we re discussed and any questions were answered. Informed consent was obtained. The patient was placed s upine on the ultrasound table and prepped and draped in the usual sterile fashion. All elements of maximal barrier technique were utilized. Under ultrasound guidance, access into the right lower quadrant was obtained, via the paracentesis catheter system and direct ultrasound guidanc e. Approximately 5.5 liters of straw-colored fluid was removed. The patient was stable throughout the pr ocedure and remained stable upon discharge from Department of Radiology. IMPRESSION: Successful paracentesis under ultrasound guidance.
[2022-04-13 16:08] VITALS: BP 152/71; PULSE 72
== END 2022-04-13 17:35 ==
LOC: EC 12:13 → 6NMEDSUR 15:36
PROVIDERS: ADMIT Student in an Organized Health Care Education/Training Program; ATTEND Student in an Organized Health Care Education/Training Program
DX: R18.8 Other ascites (principal); I16.0 Hypertensive urgency; I13.0 Hypertensive heart and chronic kidney disease with heart failure and stage 1 through stage 4 chronic kidney disease, or unspecified chronic kidney disease; I50.33 Acute on chronic diastolic (congestive) heart failure; N18.9 Chronic kidney disease, unspecified; E11.22 Type 2 diabetes mellitus with diabetic chronic kidney disease; M10.9 Gout, unspecified; F32.A Depression, unspecified; D50.9 Iron deficiency anemia, unspecified; Z85.42 Personal history of malignant neoplasm of other parts of uterus; Z79.899 Other long term (current) drug therapy; Z79.84 Long term (current) use of oral hypoglycemic drugs; Z79.01 Long term (current) use of anticoagulants; Z82.49 Family history of ischemic heart disease and other diseases of the circulatory system
CPT/HCPCS: 96376; 96375; 96374; 99284; 36415; 97162; 97166; 80053; 82150; 83690; 85025; 85610; 85730; 76705; 49083; G0378 ×3; J1940 ×2; J1170

== ENCOUNTER 2022-05-16 08:42 | Day surgery (SDC) | payer MEDICARE, BC ==
[2022-05-16 09:29] VITALS: BP 146/73; PULSE 65; RESP 16; TEMP 97.1
[2022-05-16 10:12] LABS: Mean Platelet Volume 8.7; Platelet Count 206 k/uL (150-450)
[2022-05-16 10:23] LABS: Anisocytosis Slight; Hypochromasia Marked; MCH 31.1 pg (25.0-35.0); MCHC 30.6 g/dL (31.0-37.0); MCV 101.7 fL (80.0-100.0); Macrocytosis Slight; Mean Platelet Volume 8.7; Prothrombin Time 11.1 sec (9.0-12.0); RBC 1.89 m/uL (3.80-5.40); RDW 17.3 % (11.5-15.5)
[2022-05-16 10:24] LABS: HGB 5.9 gm/dL (11.4-16.0)
[2022-05-16 10:25] LABS: HCT 19.2 % (34.0-46.0); Platelet Count 206 k/uL (150-450)
== END 2022-05-16 10:40 | disposition home or self-care (01) ==
LOC: RADPROMAIN 08:42
PROVIDERS: ATTEND Internal Medicine Hematology & Oncology
DX: R18.8 Other ascites (principal)
CPT/HCPCS: 82947; 85027; 85049; 85610

== ENCOUNTER 2022-05-16 10:43 | Inpatient (IN) | payer MEDICARE, BC ==
[2022-05-16 11:37] LABS: Anisocytosis Slight; Basophils % (A) 1 %; Eosinophils # (A) 0.1 k/uL (0-0.7); Eosinophils % (A) 1 %; Hypochromasia Marked; Lymphocytes # (A) 0.6 k/uL (1.0-4.8); Lymphocytes % (A) 8 %; MCHC 30.1 g/dL (31.0-37.0); MCV 99.4 fL (80.0-100.0); Macrocytosis Slight; Mean Platelet Volume 8.9; Monocytes # (A) 0.2 k/uL (0-1.0); Monocytes % (A) 3 %; Neutrophils # (A) 5.8 k/uL (1.3-7.7); Neutrophils % (A) 87 %; Platelet Count 239 k/uL (150-450); WBC 6.7 k/uL (3.8-10.6)
[2022-05-16 11:46] LABS: HGB 5.7 gm/dL (11.4-16.0)
[2022-05-16 11:47] LABS: HCT 18.9 % (34.0-46.0)
[2022-05-16 11:49] LABS: Albumin 2.9 g/dL (3.5-5.0); Calcium 7.8 mg/dL (8.4-10.2); Potassium 4.5 mmol/L (3.5-5.1); Total Bilirubin 0.2 mg/dL (0.2-1.3); Total Protein 5.7 g/dL (6.3-8.2)
--- NOTE | 2022-05-16 12:42 | ED ---
Recheck HPI - General Chief Complaint: Recheck/Abnormal Lab/Rx Stated Complaint: Low Hemoglobin Time Seen by Provider: 05/16/22 10:52 Source: patient, RN notes reviewed, old records reviewed Mode of arrival: ambulatory Limitations: no limitations - History of Present Illness Initial Comments: Patient is a 67-year-old female presenting to the emergency room from interventional radiology where she was at today for a therapeutic paracentesis for ascites secondary to her metastatic uterine cancer. There she was complaining of generalized weakness, fatigue and shortness of breath with exertion which she felt was not related to her ascites interventional radiology to blood on her and found that her hemoglobin was 5.9 consequently she was sent to the emergency room. She states that she was having significant vaginal bleeding 3 days ago in which she passed large clots. She has not had any vaginal bleeding in the last 24 hours. She reports that she was evaluated at [facility] in regards to her cancer and was deemed not a surgical candidate due to severe comorbid conditions including severe pulmonary hypertension, CHF with preserved ejection fraction and chronic kidney disease. She is currently on Eliquis for a pulmonary emboli however the Eliquis was placed on hold 48 hours ago in preparation for her paracentesis. She is complaining of some abdominal pain and nausea without vomiting which she attributes to her ascites. She denies any chest pain, shortness of breath at rest, headache, dizziness, fevers or chills. She has chronic lower extremity edema which she states is unchanged and has dressings on. In addition to her past medical history as stated above she also has a past medical history significant for pericardial effusion chronic iron deficiency anemia, hypertension, hyperlipidemia and diabetes. - Related Data Home Medications Medication Instructions Recorded Confirmed allopurinoL [Zyloprim] 100 mg PO DAILY 12/16/20 05/16/22 Linagliptin [Tradjenta] 5 mg PO DAILY 08/02/21 05/16/22 Ferrous Sulfate [Iron (65 MG 325 mg PO DAILY 10/11/21 05/16/22 Elemental)] Insulin Lispro [humaLOG Kwikpen] See Protocol SQ ACHS PRN 12/10/21 05/16/22 Cholestyramine/Aspartame 4 gm PO DAILY PRN 03/07/22 05/16/22 [Cholestyramine Light Packet] Furosemide [Lasix] 40 mg PO BID 04/11/22 05/16/22 Isosorbide Mononitrate ER [Imdur] 30 mg PO DAILY 04/11/22 05/16/22 NIFEdipine XL [Procardia XL] 60 mg PO DAILY 04/11/22 05/16/22 Sodium Bicarbonate Tab 650 mg PO BID 04/11/22 05/16/22 carvediloL [Coreg] 6.25 mg PO BID 04/11/22 05/16/22 Mckay-Gest 500mg 2 tab PO Q4H PRN 05/16/22 05/16/22 Calcium Carbonate/Vitamin D3 2 tab PO BID 05/16/22 05/16/22 [Oyster Shell 250 mg-D3 3.12 mcg (125 Iu)] Melatonin 3 mg PO HS 05/16/22 05/16/22 hydrALAZINE HCL [Apresoline] 25 mg PO Q8HR 05/16/22 05/16/22 Previous Rx's Medication Instructions Recorded Apixaban [Eliquis] 5 mg PO BID 30 Days #60 tab 12/20/21 Acetaminophen Tab [Tylenol] 650 mg PO Q6HR PRN tab 03/14/22 Docusate [Colace] 100 mg PO BID PRN cap 03/14/22 HYDROcodone/APAP 5-325MG [Alvo 1 tab PO TID PRN #9 tab 04/13/22 5-325] Loperamide [Imodium] 2 mg PO QID PRN #30 cap 05/22/22 Mirtazapine [Remeron] 7.5 mg PO HS #15 tab 05/22/22 Pantoprazole [Protonix] 40 mg PO BID #60 tab 05/22/22 Allergies Allergy/AdvReac Type Severity Reaction Status Date / Time No Known Allergies Allergy Verified 05/16/22 12:00 Review of Systems ROS Statement: Those systems with pertinent positive or pertinent negative responses have been documented in the HPI. ROS Other: All systems not noted in ROS Statement are negative. Past Medical History Past Medical History: Cancer, Heart Failure, Diabetes Mellitus, Hyperlipidemia, Hypertension, Renal Disease Additional Past Medical History / Comment(s): anemia, pulmonary edema, gout, weakness, uterine Ca, ascites History of Any Multi-Drug Resistant Organisms: None Reported Past Surgical History: No Surgical Hx Reported Past Anesthesia/Blood Transfusion Reactions: No Reported Reaction Past Psychological History: Depression Smoking Status: Never smoker Past Alcohol Use History: None Reported Past Drug Use History: None Reported - Past Family History Father Family Medical History: Myocardial Infarction (DE) Additional Family Medical History / Comment(s): father of DE at 58 years old Mother Family Medical History: No Reported History Additional Family Medical History / Comment(s): mother of old age at 95 years old General Exam General appearance: alert, in no apparent distress Head exam: Present: atraumatic, normocephalic, normal inspection Eye exam: Present: normal appearance, PERRL. Absent: scleral icterus, conjunctival injection, periorbital swelling, periorbital tenderness ENT exam: Present: normal exam, mucous membranes moist Neck exam: Present: normal inspection, full ROM Respiratory exam: Present: normal lung sounds bilaterally. Absent: respiratory distress, wheezes, rales, rhonchi, stridor Cardiovascular Exam: Present: regular rate, normal rhythm, normal heart sounds, systolic murmur. Absent: diastolic murmur, rubs, gallop, clicks GI/Abdominal exam: Present: distended, tenderness (mild diffuse), normal bowel sounds. Absent: guarding, rebound Rectal exam: Present: deferred Extremities exam: Present: pedal edema (bilateral lower extremities with tammie wraps intact) Back exam: Present: normal inspection Neurological exam: Present: alert, oriented X3, CN II-XII intact Psychiatric exam: Present: normal affect, normal mood Skin exam: Present: pallor Course Vital Signs 05/16/22 05/16/22 05/16/22 10:47 12:52 12:57 Temperature 98.1 F 96.9 F L 97.1 F L Pulse Rate 62 96 76 Pulse Rate [ Right] Respiratory 20 16 18 Rate Blood Pressure 160/69 142/69 161/68 Blood Pressure [Right Arm] O2 Sat by Pulse 97 Oximetry 05/16/22 05/16/22 05/16/22 13:17 13:38 14:30 Temperature Pulse Rate 62 Pulse Rate [ 60 Right] Respiratory 18 18 Rate Blood Pressure 149/67 158/67 Blood Pressure 149/67 [Right Arm] O2 Sat by Pulse 93 L 96 93 L Oximetry Medical Decision Making - Medical Decision Making 67-year-old female presenting to the emergency room from [facility] with symptomatic anemia. Will repeat CBC and type and cross. Will obtain urinalysis along with CMP and troponin. No indication for other laboratory studies are diagnostic imaging. EKG shows sinus rhythm. Repeat CBC shows a hemoglobin of 5.7. CMP consistent with dehydration likely secondary to anemia will defer IV fluids and plan for transfusion. Troponin negative. Will order 2 units of packed red blood cells and plan for admission for symptomatic anemia. Spoke with Dr. Schuler out with [facility] hospitalist in regards to need for admission for symptomatic anemia and transfusion. He is requesting that OB be involved with case due to source of bleeding secondary to uterine cancer in which she is not a surgical candidate for. Per primary team's request spoke with on-call [employer] Dr. Rios at 1217 discussing patient's case. [employer] aware of patient's case given lack of vaginal bleeding at this time they feel it is not necessary for them to be consult it but will be advised to notify primary care team to consult them if needed. Spoke with Dr. Schuler again at 1228 informing him of notification of PATIENT CASE COORDINATOR service notification. Orders received to proceed with planned admission for symptomatic anemia. Will admit patient. Case discussed with Dr. Costa. - Lab Data Result diagrams: 05/20/22 07:59 05/20/22 07:59 Lab Results 05/16/22 05/16/22 05/16/22 Range/Units 11:28 11:28 11:28 WBC 6.7 (3.8-10.6) k/uL RBC 1.90 L (3.80-5.40) m/uL Hgb 5.7 L* (11.4-16.0) gm/dL Hct 18.9 L* (34.0-46.0) % MCV 99.4 (80.0-100.0) fL MCH 30.0 (25.0-35.0) pg MCHC 30.1 L (31.0-37.0) g/dL RDW 18.0 H (11.5-15.5) % Plt Count 239 (150-450) k/uL MPV 8.9 Neutrophils % 87 % Lymphocytes % 8 % Monocytes % 3 % Eosinophils % 1 % Basophils % 1 % Neutrophils # 5.8 (1.3-7.7) k/uL Lymphocytes # 0.6 L (1.0-4.8) k/uL Monocytes # 0.2 (0-1.0) k/uL Eosinophils # 0.1 (0-0.7) k/uL Basophils # 0.0 (0-0.2) k/uL Hypochromasia Marked Poikilocytosis Anisocytosis Slight Macrocytosis Slight APTT 25.7 (22.0-30.0) sec Sodium 138 (137-145) mmol/L Potassium 4.5 (3.5-5.1) mmol/L Chloride 115 H (98-107) mmol/L Carbon Dioxide 15 L (22-30) mmol/L Anion Gap 8 mmol/L BUN 58 H (7-17) mg/dL Creatinine 1.65 H (0.52-1.04) mg/dL Est GFR (CKD-EPI)AfAm 37 (>60 ml/min/1.73 sqM) Est GFR (CKD-EPI)NonAf 32 (>60 ml/min/1.73 sqM) Glucose 144 H (74-99) mg/dL POC Glucose (mg/dL) (70-110) mg/dL POC Glu Business Education Professor ID Estimated [address] Glu mg/dL Hemoglobin A1c (0.0-6.0) % Calcium 7.8 L (8.4-10.2) mg/dL Total Bilirubin 0.2 (0.2-1.3) mg/dL AST 16 (14-36) U/L ALT 12 (4-34) U/L Alkaline Phosphatase 129 H (38-126) U/L Troponin I (0.000-0.034) ng/mL Total Protein 5.7 L (6.3-8.2) g/dL Albumin 2.9 L (3.5-5.0) g/dL Fluid Source Fluid Volume mL Fluid Appearance Fluid WBC /uL Fluid RBC (Auto) /uL Fld Polynuclear WBCs % % Fluid Lymphocytes % % Fluid Monocytes % % Fluid Eosinophils % % Fluid Basophils % % Fld Mesothelial Cell % % Fluid Other Cells % Body Fluid Protein Source Fluid Total Protein mg/dL Body Fluid LDH Source Fluid LDH U/L Blood Type Blood Type Recheck Bld Type Recheck Status Antibody Screen Crossmatch Spec Expiration Date 05/16/22 05/16/22 05/16/22 Range/Units 11:28 11:28 16:44 WBC (3.8-10.6) k/uL RBC (3.80-5.40) m/uL Hgb (11.4-16.0) gm/dL Hct (34.0-46.0) % MCV (80.0-100.0) fL MCH (25.0-35.0) pg MCHC (31.0-37.0) g/dL RDW (11.5-15.5) % Plt Count (150-450) k/uL MPV Neutrophils % % Lymphocytes % % Monocytes % % Eosinophils % % Basophils % % Neutrophils # (1.3-7.7) k/uL Lymphocytes # (1.0-4.8) k/uL Monocytes # (0-1.0) k/uL Eosinophils # (0-0.7) k/uL Basophils # (0-0.2) k/uL Hypochromasia Poikilocytosis Anisocytosis Macrocytosis APTT (22.0-30.0) sec Sodium (137-145) mmol/L Potassium (3.5-5.1) mmol/L Chloride (98-107) mmol/L Carbon Dioxide (22-30) mmol/L Anion Gap mmol/L BUN (7-17) mg/dL Creatinine (0.52-1.04) mg/dL Est GFR (CKD-EPI)AfAm (>60 ml/min/1.73 sqM) Est GFR (CKD-EPI)NonAf (>60 ml/min/1.73 sqM) Glucose (74-99) mg/dL POC Glucose (mg/dL) 149 H (70-110) mg/dL POC Glu Business Education Professor ID Gilma Victor [address] Glu mg/dL Hemoglobin A1c (0.0-6.0) % Calcium (8.4-10.2) mg/dL Total Bilirubin (0.2-1.3) mg/dL AST (14-36) U/L ALT (4-34) U/L Alkaline Phosphatase (38-126) U/L Troponin I <0.012 (0.000-0.034) ng/mL Total Protein (6.3-8.2) g/dL Albumin (3.5-5.0) g/dL Fluid Source Fluid Volume mL Fluid Appearance Fluid WBC /uL Fluid RBC (Auto) /uL Fld Polynuclear WBCs % % Fluid Lymphocytes % % Fluid Monocytes % % Fluid Eosinophils % % Fluid Basophils % % Fld Mesothelial Cell % % Fluid Other Cells % Body Fluid Protein Source Fluid Total Protein mg/dL Body Fluid LDH Source Fluid LDH U/L Blood Type A Positive Blood Type Recheck A Pos Bld Type Recheck Status No Antibody Screen NEGATIVE Crossmatch See Detail Spec Expiration Date 05/19/2022 - 232705/16/22 05/17/22 05/17/22 Range/Units 20:09 06:19 07:55 WBC (3.8-10.6) k/uL RBC (3.80-5.40) m/uL Hgb (11.4-16.0) gm/dL Hct (34.0-46.0) % MCV (80.0-100.0) fL MCH (25.0-35.0) pg MCHC (31.0-37.0) g/dL RDW (11.5-15.5) % Plt Count (150-450) k/uL MPV Neutrophils % % Lymphocytes % % Monocytes % % Eosinophils % % Basophils % % Neutrophils # (1.3-7.7) k/uL Lymphocytes # (1.0-4.8) k/uL Monocytes # (0-1.0) k/uL Eosinophils # (0-0.7) k/uL Basophils # (0-0.2) k/uL Hypochromasia Poikilocytosis Anisocytosis Macrocytosis APTT (22.0-30.0) sec Sodium (137-145) mmol/L Potassium (3.5-5.1) mmol/L Chloride (98-107) mmol/L Carbon Dioxide (22-30) mmol/L Anion Gap mmol/L BUN (7-17) mg/dL Creatinine (0.52-1.04) mg/dL Est GFR (CKD-EPI)AfAm (>60 ml/min/1.73 sqM) Est GFR (CKD-EPI)NonAf (>60 ml/min/1.73 sqM) Glucose (74-99) mg/dL POC Glucose (mg/dL) 174 H 139 H (70-110) mg/dL POC Glu Business Education Professor Adonay Stevenson, Adonay [address] Glu mg/dL 114 Hemoglobin A1c 5.6 (0.0-6.0) % Calcium (8.4-10.2) mg/dL Total Bilirubin (0.2-1.3) mg/dL AST (14-36) U/L ALT (4-34) U/L Alkaline Phosphatase (38-126) U/L Troponin I (0.000-0.034) ng/mL Total Protein (6.3-8.2) g/dL Albumin (3.5-5.0) g/dL Fluid Source Fluid Volume mL Fluid Appearance Fluid WBC /uL Fluid RBC (Auto) /uL Fld Polynuclear WBCs % % Fluid Lymphocytes % % Fluid Monocytes % % Fluid Eosinophils % % Fluid Basophils % % Fld Mesothelial Cell % % Fluid Other Cells % Body Fluid Protein Source Fluid Total Protein mg/dL Body Fluid LDH Source Fluid LDH U/L Blood Type Blood Type Recheck Bld Type Recheck Status Antibody Screen Crossmatch Spec Expiration Date 05/17/22 05/17/22 05/17/22 Range/Units 07:55 11:36 16:35 WBC 8.9 (3.8-10.6) k/uL RBC 2.82 L (3.80-5.40) m/uL Hgb 8.7 L D (11.4-16.0) gm/dL Hct 27.3 L (34.0-46.0) % MCV 96.6 (80.0-100.0) fL MCH 30.9 (25.0-35.0) pg MCHC 32.0 (31.0-37.0) g/dL RDW 17.5 H (11.5-15.5) % Plt Count 244 (150-450) k/uL MPV 8.7 Neutrophils % 88 % Lymphocytes % 6 % Monocytes % 4 % Eosinophils % 2 % Basophils % 1 % Neutrophils # 7.8 H (1.3-7.7) k/uL Lymphocytes # 0.5 L (1.0-4.8) k/uL Monocytes # 0.3 (0-1.0) k/uL Eosinophils # 0.2 (0-0.7) k/uL Basophils # 0.0 (0-0.2) k/uL Hypochromasia Marked Poikilocytosis Slight Anisocytosis Slight Macrocytosis Slight APTT (22.0-30.0) sec Sodium (137-145) mmol/L Potassium (3.5-5.1) mmol/L Chloride (98-107) mmol/L Carbon Dioxide (22-30) mmol/L Anion Gap mmol/L BUN (7-17) mg/dL Creatinine (0.52-1.04) mg/dL Est GFR (CKD-EPI)AfAm (>60 ml/min/1.73 sqM) Est GFR (CKD-EPI)NonAf (>60 ml/min/1.73 sqM) Glucose (74-99) mg/dL POC Glucose (mg/dL) 161 H 127 H (70-110) mg/dL POC Glu Business Education Professor ID Mariam Miller Dawn [address] Glu mg/dL Hemoglobin A1c (0.0-6.0) % Calcium (8.4-10.2) mg/dL Total Bilirubin (0.2-1.3) mg/dL AST (14-36) U/L ALT (4-34) U/L Alkaline Phosphatase (38-126) U/L Troponin I (0.000-0.034) ng/mL Total Protein (6.3-8.2) g/dL Albumin (3.5-5.0) g/dL Fluid Source Fluid Volume mL Fluid Appearance Fluid WBC /uL Fluid RBC (Auto) /uL Fld Polynuclear WBCs % % Fluid Lymphocytes % % Fluid Monocytes % % Fluid Eosinophils % % Fluid Basophils % % Fld Mesothelial Cell % % Fluid Other Cells % Body Fluid Protein Source Fluid Total Protein mg/dL Body Fluid LDH Source Fluid LDH U/L Blood Type Blood Type Recheck Bld Type Recheck Status Antibody Screen Crossmatch Spec Expiration Date 05/17/22 05/18/22 05/18/22 Range/Units 20:12 04:20 06:05 WBC 9.9 (3.8-10.6) k/uL RBC 2.70 L (3.80-5.40) m/uL Hgb 8.5 L (11.4-16.0) gm/dL Hct 26.3 L (34.0-46.0) % MCV 97.2 (80.0-100.0) fL MCH 31.4 (25.0-35.0) pg MCHC 32.3 (31.0-37.0) g/dL RDW 18.0 H (11.5-15.5) % Plt Count 232 (150-450) k/uL MPV 8.3 Neutrophils % % Lymphocytes % % Monocytes % % Eosinophils % % Basophils % % Neutrophils # (1.3-7.7) k/uL Lymphocytes # (1.0-4.8) k/uL Monocytes # (0-1.0) k/uL Eosinophils # (0-0.7) k/uL Basophils # (0-0.2) k/uL Hypochromasia Marked Poikilocytosis Slight Anisocytosis Slight Macrocytosis Slight APTT (22.0-30.0) sec Sodium (137-145) mmol/L Potassium (3.5-5.1) mmol/L Chloride (98-107) mmol/L Carbon Dioxide (22-30) mmol/L Anion Gap mmol/L BUN (7-17) mg/dL Creatinine (0.52-1.04) mg/dL Est GFR (CKD-EPI)AfAm (>60 ml/min/1.73 sqM) Est GFR (CKD-EPI)NonAf (>60 ml/min/1.73 sqM) Glucose (74-99) mg/dL POC Glucose (mg/dL) 128 H 163 H (70-110) mg/dL POC Glu Business Education Professor ID Maame Lopes [address] Glu mg/dL Hemoglobin A1c (0.0-6.0) % Calcium (8.4-10.2) mg/dL Total Bilirubin (0.2-1.3) mg/dL AST (14-36) U/L ALT (4-34) U/L Alkaline Phosphatase (38-126) U/L Troponin I (0.000-0.034) ng/mL Total Protein (6.3-8.2) g/dL Albumin (3.5-5.0) g/dL Fluid Source Fluid Volume mL Fluid Appearance Fluid WBC /uL Fluid RBC (Auto) /uL Fld Polynuclear WBCs % % Fluid Lymphocytes % % Fluid Monocytes % % Fluid Eosinophils % % Fluid Basophils % % Fld Mesothelial Cell % % Fluid Other Cells % Body Fluid Protein Source Fluid Total Protein mg/dL Body Fluid LDH Source Fluid LDH U/L Blood Type Blood Type Recheck Bld Type Recheck Status Antibody Screen Crossmatch Spec Expiration Date 05/18/22 05/18/22 05/18/22 Range/Units 11:42 14:00 14:00 WBC (3.8-10.6) k/uL RBC (3.80-5.40) m/uL Hgb (11.4-16.0) gm/dL Hct (34.0-46.0) % MCV (80.0-100.0) fL MCH (25.0-35.0) pg MCHC (31.0-37.0) g/dL RDW (11.5-15.5) % Plt Count (150-450) k/uL MPV Neutrophils % % Lymphocytes % % Monocytes % % Eosinophils % % Basophils % % Neutrophils # (1.3-7.7) k/uL Lymphocytes # (1.0-4.8) k/uL Monocytes # (0-1.0) k/uL Eosinophils # (0-0.7) k/uL Basophils # (0-0.2) k/uL Hypochromasia Poikilocytosis Anisocytosis Macrocytosis APTT (22.0-30.0) sec Sodium (137-145) mmol/L Potassium (3.5-5.1) mmol/L Chloride (98-107) mmol/L Carbon Dioxide (22-30) mmol/L Anion Gap mmol/L BUN (7-17) mg/dL Creatinine (0.52-1.04) mg/dL Est GFR (CKD-EPI)AfAm (>60 ml/min/1.73 sqM) Est GFR (CKD-EPI)NonAf (>60 ml/min/1.73 sqM) Glucose (74-99) mg/dL POC Glucose (mg/dL) 162 H (70-110) mg/dL POC Glu Business Education Professor ID Lana Kent [address] Glu mg/dL Hemoglobin A1c (0.0-6.0) % Calcium (8.4-10.2) mg/dL Total Bilirubin (0.2-1.3) mg/dL AST (14-36) U/L ALT (4-34) U/L Alkaline Phosphatase (38-126) U/L Troponin I (0.000-0.034) ng/mL Total Protein (6.3-8.2) g/dL Albumin (3.5-5.0) g/dL Fluid Source Paracentesis Fluid Fluid Volume 2 mL Fluid Appearance Cloudy Fluid WBC 158 /uL Fluid RBC (Auto) 4000 /uL Fld Polynuclear WBCs % 8 % Fluid Lymphocytes % 88 % Fluid Monocytes % 2 % Fluid Eosinophils % 0 % Fluid Basophils % 0 % Fld Mesothelial Cell % 2 % Fluid Other Cells % 0 Body Fluid Protein Source Paracentesis Fluid Fluid Total Protein 2060 mg/dL Body Fluid LDH Source Paracentesis Fluid Fluid LDH 87 U/L Blood Type Blood Type Recheck Bld Type Recheck Status Antibody Screen Crossmatch Spec Expiration Date 05/18/22 Range/Units 16:21 WBC (3.8-10.6) k/uL RBC (3.80-5.40) m/uL Hgb (11.4-16.0) gm/dL Hct (34.0-46.0) % MCV (80.0-100.0) fL MCH (25.0-35.0) pg MCHC (31.0-37.0) g/dL RDW (11.5-15.5) % Plt Count (150-450) k/uL MPV Neutrophils % % Lymphocytes % % Monocytes % % Eosinophils % % Basophils % % Neutrophils # (1.3-7.7) k/uL Lymphocytes # (1.0-4.8) k/uL Monocytes # (0-1.0) k/uL Eosinophils # (0-0.7) k/uL Basophils # (0-0.2) k/uL Hypochromasia Poikilocytosis Anisocytosis Macrocytosis APTT (22.0-30.0) sec Sodium (137-145) mmol/L Potassium (3.5-5.1) mmol/L Chloride (98-107) mmol/L Carbon Dioxide (22-30) mmol/L Anion Gap mmol/L BUN (7-17) mg/dL Creatinine (0.52-1.04) mg/dL Est GFR (CKD-EPI)AfAm (>60 ml/min/1.73 sqM) Est GFR (CKD-EPI)NonAf (>60 ml/min/1.73 sqM) Glucose (74-99) mg/dL POC Glucose (mg/dL) 150 H (70-110) mg/dL POC Glu Business Education Professor ID Lana Kent [address] Glu mg/dL Hemoglobin A1c (0.0-6.0) % Calcium (8.4-10.2) mg/dL Total Bilirubin (0.2-1.3) mg/dL AST (14-36) U/L ALT (4-34) U/L Alkaline Phosphatase (38-126) U/L Troponin I (0.000-0.034) ng/mL Total Protein (6.3-8.2) g/dL Albumin (3.5-5.0) g/dL Fluid Source Fluid Volume mL Fluid Appearance Fluid WBC /uL Fluid RBC (Auto) /uL Fld Polynuclear WBCs % % Fluid Lymphocytes % % Fluid Monocytes % % Fluid Eosinophils % % Fluid Basophils % % Fld Mesothelial Cell % % Fluid Other Cells % Body Fluid Protein Source Fluid Total Protein mg/dL Body Fluid LDH Source Fluid LDH U/L Blood Type Blood Type Recheck Bld Type Recheck Status Antibody Screen Crossmatch Spec Expiration Date - EKG Data EKG Comments: EKG completed at 1155 interpreted by me shows sinus rhythm, probable old possible anterior myocardial infarction, ventricular rate 61 bpm, MD interval 179 ms, QRS duration 91 ms, QT/QTC 454/450 ms PRT axes 56, 59, 64 Disposition Clinical Impression: Symptomatic anemia Disposition: ADMITTED IP TO THIS HOSP Condition: Fair Is patient prescribed a controlled substance at d/c from ED?: No Time of Disposition: 12:45
[2022-05-16] MEDS ORDERED: FUROSEMIDE 10 MG/ML 4 ML VIAL IV STA (12:45)
[2022-05-16] MEDS ORDERED: NALOXONE 0.4 MG/ML 1 ML VIAL IV PRN (12:46)
[2022-05-16] MEDS ORDERED: ACETAMINOPHEN TAB 325 MG TAB PO PRN ×2 (12:46→13:59)
[2022-05-16] MEDS ORDERED: DOCUSATE 100 MG CAP PO PRN (13:59)
--- NOTE | 2022-05-16 14:10 | P.HPIM ---
History of Present Illness H&P Date: 05/16/22 Chief Complaint: anemia Patient is a 67-year-old female with history of uterine cancer with malignant ascites, diastolic CHF, hypertension, diabetes, CKD presenting for symptomatic acute blood loss anemia. She claims that she has been dealing with her uterine cancer for a couple years. She had radiation therapy one year ago. Due to her advanced cancer and poor respiratory and cardiovascular function, she is not a good candidate for surgery. She is also started to have malignant abdominal ascites, requiring regular therapeutic paracentesis. She currently sees Dr. Garcia for oncological care. She is scheduled for starting immunotherapy. Per patient, it is likely more for palliation rather than cure. Today, she presented to the emergency for paracentesis, was found to have hemoglobin of 5.9. She has noted vaginal bleeding over the last couple days, and has also noted increasing shortness of breath on exertion. She denies any chest pain, palpitations, lightheadedness, urinary symptoms, or rectal bleeding. She occasionally gets diarrhea and also abdominal pain from abdominal ascites. Patient claims that she has made peace with her cancer prognosis. She would like to be comfortable if she begins to have heavy bleeding, and no therapeutic options available in this hospital. She will like not to be resuscitated in case of emergency. In the ED, her vital signs were within normal limits. Her lab work was significant for hemoglobin of 5.7, and non-anion gap metabolic acidosis. She was given blood products and diuretics. Patient seen And examined at bedside. Pertinent positives and negatives as discussed in HPI, a complete review of systems was performed and all other systems are negative. Vital signs reviewed General: nontoxic, no distress, appears at stated age Derm: warm, dry Head: atraumatic, normocephalic, symmetric Eyes: EOMI, no lid lag, anicteric sclera, pupils equal round reactive to light, conjunctival pallor ENT: Nose and ears atraumatic Neck: No thyromegaly, supple Mouth: no lip lesion, mucus membranes moist Cardiovascular: S1S2 reg, no murmur, 2+ peripheral edema up to knees Lungs: clear to auscultation bilateral, no rhonchi, no rales, no wheeze, no accessory muscle use Abdominal: soft, nontender to palpation, distended, tympanitic, no guarding, no appreciable organomegaly Ext: no gross muscle atrophy, muscle strength muscle strength 5 out of 5 in all 4 extremities, no contractures Neuro: CN II-XII grossly intact Psych: Alert, oriented, appropriate affect Assessment/Plan: Acute blood loss anemia, symptomatic Metastatic uterine cancer with malignant ascites Postmenopausal bleeding -In gynecology and oncology consult -Transfuse PRBCs to keep hemoglobin above 7 -Diuretics while getting blood products -Paracentesis -hold Eliquis Non-anion gap metabolic acidosis -Possibly in the setting of diarrhea -On sodium bicarb Chronic diastolic heart failure Hypertension Diabetes - will hold oral antidiabetic medications, start on SSI Chronic kidney disease -Medications reviewed and reconciled The patient is admitted with an anticipated less than 2 midnight stay for evaluation of acute blood loss anemia. Surrogate decision-maker: Cousin CODE STATUS: No code DVT prophylaxis: SCD Anticipated discharge date: 05/[address]: Home A total of 55 minutes was spent on the care of this complex patient more than 50% of the time was spent in counseling and care coordination. Past Medical History Past Medical History: Cancer, Heart Failure, Diabetes Mellitus, Hyperlipidemia, Hypertension, Renal Disease Additional Past Medical History / Comment(s): anemia, pulmonary edema, gout, weakness, uterine Ca, ascites History of Any Multi-Drug Resistant Organisms: None Reported Past Surgical History: No Surgical Hx Reported Past Anesthesia/Blood Transfusion Reactions: No Reported Reaction Past Psychological History: Depression Smoking Status: Never smoker Past Alcohol Use History: None Reported Past Drug Use History: None Reported - Past Family History Father Family Medical History: Myocardial Infarction ([place]) Additional Family Medical History / Comment(s): father of [place] at 58 years old Mother Family Medical History: No Reported History Additional Family Medical History / Comment(s): mother of old age at 95 years old Medications and Allergies Home Medications Medication Instructions Recorded Confirmed Type allopurinoL [Zyloprim] 100 mg PO DAILY 12/16/20 05/16/22 History Linagliptin [Tradjenta] 5 mg PO DAILY 08/02/21 05/16/22 History Ferrous Sulfate [Iron (65 MG 325 mg PO DAILY 10/11/21 05/16/22 History Elemental)] Insulin Lispro [humaLOG Kwikpen] See Protocol SQ ACHS PRN 12/10/21 05/16/22 History Apixaban [Eliquis] 5 mg PO BID 30 Days #60 tab 12/20/21 05/16/22 Rx Cholestyramine/Aspartame 4 gm PO DAILY PRN 03/07/22 05/16/22 History [Cholestyramine Light Packet] Acetaminophen Tab [Tylenol] 650 mg PO Q6HR PRN tab 03/14/22 05/16/22 Rx Docusate [Colace] 100 mg PO BID PRN cap 03/14/22 05/16/22 Rx Furosemide [Lasix] 40 mg PO BID 04/11/22 05/16/22 History Isosorbide Mononitrate ER [Imdur] 30 mg PO DAILY 04/11/22 05/16/22 History NIFEdipine XL [Procardia XL] 60 mg PO DAILY 04/11/22 05/16/22 History Sodium Bicarbonate Tab 650 mg PO BID 04/11/22 05/16/22 History carvediloL [Coreg] 6.25 mg PO BID 04/11/22 05/16/22 History HYDROcodone/APAP 5-325MG [[place] 1 tab PO TID PRN #9 tab 04/13/22 05/16/22 Rx 5-325] Mckay-Gest 500mg 2 tab PO Q4H PRN 05/16/22 05/16/22 History Calcium Carbonate/Vitamin D3 2 tab PO BID 05/16/22 05/16/22 History [Oyster Shell 250 mg-D3 3.12 mcg (125 Iu)] Melatonin 3 mg PO HS 05/16/22 05/16/22 History hydrALAZINE HCL [Apresoline] 25 mg PO Q8HR 05/16/22 05/16/22 History Allergies Allergy/AdvReac Type Severity Reaction Status Date / Time No Known Allergies Allergy Verified 05/16/22 12:00 Physical Exam Vitals: Vital Signs Temp Pulse Resp BP Pulse Ox 05/16/22 13:38 18 158/67 96 05/16/22 12:57 97.1 F L 76 18 161/68 05/16/22 12:52 96.9 F L 96 16 142/69 05/16/22 10:47 98.1 F 62 20 160/69 97 Intake and Output 05/15/22 05/16/22 05/16/22 22:59 06:59 14:59 Intake Total 0 Balance 0 Intake: Blood Product 0 Unit 0 Other: Weight 108.862 kg Results CBC & Chem 7: 05/16/22 11:28 05/16/22 11:28 Labs: Abnormal Lab Results - Last 24 Hours (Table) 05/16/22 05/16/22 05/16/22 Range/Units 11:28 11: 11:28 RBC 1.90 L (3.80-5.40) m/uL Hgb 5.7 L* (11.4-16.0) gm/dL Hct 18.9 L* (34.0-46.0) % MCHC 30.1 L (31.0-37.0) g/dL RDW 18.0 H (11.5-15.5) % Lymphocytes # 0.6 L (1.0-4.8) k/uL Chloride 115 H (98-107) mmol/L Carbon Dioxide 15 L (22-30) mmol/L BUN 58 H (7-17) mg/dL Creatinine 1.65 H (0.52-1.04) mg/dL Glucose 144 H (74-99) mg/dL Calcium 7.8 L (8.4-10.2) mg/dL Alkaline Phosphatase 129 H (38-126) U/L Total Protein 5.7 L (6.3-8.2) g/dL Albumin 2.9 L (3.5-5.0) g/dL Crossmatch See Detail
[2022-05-16] MEDS ORDERED: DEXTROSE 50% SYRINGE 50 ML IVP PRN ×2 (16:04)
[2022-05-16] MEDS: HYDROcodone/APAP 5-325MG 1 EACH TAB PO PRN (16:31)
[2022-05-16] MEDS: FUROSEMIDE 40 MG TAB PO SCH (16:31)
[2022-05-16] MEDS: carvediloL 6.25 MG TAB PO SCH (16:31)
[2022-05-16] MEDS: hydrALAZINE HCL 25 MG TAB PO SCH (16:31)
[2022-05-16 16:46] LABS: Glucose,Whole Blood 149 mg/dL (70-110)
[2022-05-16] MEDS: INSULIN ASPART (NovoLOG) 100 UNIT/ML VIAL SQ SCH ×2 (16:57→20:47)
--- NOTE | 2022-05-16 17:05 | P.OBCN ---
History of Present Illness Consult date: 05/16/22 Chief complaint: Vaginal bleeding History of present illness: This is a 67-year-old 0 woman with a known history of stage IV endometrial adenocarcinoma, status post external beam radiation therapy completed in June 2021. She has since developed malignant ascites and had paracentesis in November 2021 revealing metastatic adenocarcinoma cells. Due to history of congestive heart failure, renal failure and other medical conditions she has not been a candidate for definitive surgical management. She had a pulmonary embolism and has been on chronic anticoagulation with eloquis. She was taking this up until the time of admission today. She presented having had several days of very heavy vaginal bleeding, shortness of breath, fatigue and increasing pain and swelling in her abdomen. Upon initial evaluation in the emergency room her hemoglobin was found to be 5.7. She reports she and her medical oncologist, Dr. José, were discussing starting on immunotherapy as a possible next step. She does state that she does not want any resuscitation and would be interested in speaking with the palliative care team/hospice. Review of Systems Constitutional: Reports fatigue, Reports weakness Cardiovascular: Reports leg edema, Reports shortness of breath, Denies chest pain Respiratory: Denies cough Gastrointestinal: Reports abdominal pain, Denies BRBPR, Denies melena, Denies nausea, Denies vomiting Genitourinary: Reports abnormal vaginal bleeding, Denies hematuria Musculoskeletal: Reports muscle weakness Neurological: Denies headaches, Denies memory loss Past Medical History Past Medical History: Cancer, Heart Failure, Diabetes Mellitus, Hyperlipidemia, Hypertension, Renal Disease Additional Past Medical History / Comment(s): anemia, pulmonary edema, gout, weakness, uterine Ca, ascites History of Any Multi-Drug Resistant Organisms: None Reported Past Surgical History: No Surgical Hx Reported Past Anesthesia/Blood Transfusion Reactions: No Reported Reaction Past Psychological History: Depression Smoking Status: Never smoker Past Alcohol Use History: None Reported Past Drug Use History: None Reported - Past Family History Father Family Medical History: Myocardial Infarction ([place]) Additional Family Medical History / Comment(s): father of [place] at 58 years old Mother Family Medical History: No Reported History Additional Family Medical History / Comment(s): mother of old age at 95 years old Medications and Allergies Home Medications Medication Instructions Recorded Confirmed Type allopurinoL [Zyloprim] 100 mg PO DAILY 12/16/20 05/16/22 History Linagliptin [Tradjenta] 5 mg PO DAILY 08/02/21 05/16/22 History Ferrous Sulfate [Iron (65 MG 325 mg PO DAILY 10/11/21 05/16/22 History Elemental)] Insulin Lispro [humaLOG Kwikpen] See Protocol SQ ACHS PRN 12/10/21 05/16/22 History Apixaban [Eliquis] 5 mg PO BID 30 Days #60 tab 12/20/21 05/16/22 Rx Cholestyramine/Aspartame 4 gm PO DAILY PRN 03/07/22 05/16/22 History [Cholestyramine Light Packet] Acetaminophen Tab [Tylenol] 650 mg PO Q6HR PRN tab 03/14/22 05/16/22 Rx Docusate [Colace] 100 mg PO BID PRN cap 03/14/22 05/16/22 Rx Furosemide [Lasix] 40 mg PO BID 04/11/22 05/16/22 History Isosorbide Mononitrate ER [Imdur] 30 mg PO DAILY 04/11/22 05/16/22 History NIFEdipine XL [Procardia XL] 60 mg PO DAILY 04/11/22 05/16/22 History Sodium Bicarbonate Tab 650 mg PO BID 04/11/22 05/16/22 History carvediloL [Coreg] 6.25 mg PO BID 04/11/22 05/16/22 History HYDROcodone/APAP 5-325MG [[place] 1 tab PO TID PRN #9 tab 04/13/22 05/16/22 Rx 5-325] Mckay-Gest 500mg 2 tab PO Q4H PRN 05/16/22 05/16/22 History Calcium Carbonate/Vitamin D3 2 tab PO BID 05/16/22 05/16/22 History [Oyster Shell 250 mg-D3 3.12 mcg (125 Iu)] Melatonin 3 mg PO HS 05/16/22 05/16/22 History hydrALAZINE HCL [Apresoline] 25 mg PO Q8HR 05/16/22 05/16/22 History Allergies Allergy/AdvReac Type Severity Reaction Status Date / Time No Known Allergies Allergy Verified 05/16/22 12:00 Exam Vital Signs Temp Pulse Resp BP Pulse Ox 05/16/22 13:38 18 158/67 96 05/16/22 13:17 62 149/67 93 L 05/16/22 12:57 97.1 F L 76 18 161/68 05/16/22 12:52 96.9 F L 96 16 142/69 05/16/22 10:47 98.1 F 62 20 160/69 97 Intake and Output 05/16/22 05/16/22 05/16/22 06:59 14:59 22:59 Intake Total 0 Balance 0 Intake: Blood Product 0 Unit 0 Other: Weight 108.862 kg This is a pale and ill-appearing female. Current transfusion is in progress. Targeted physical exam is performed. The abdomen is distended but soft. There is mild to moderate tenderness to palpation. There is dependent on anasarca and edema of the overhanging pannus. The bilateral lower extremities have tense edema from ankle to hip. On external pelvic examination she is having incontinence. There is NO blood on her current pad which had not been changed for several hours. There is no hematuria.. Results Result Diagrams: 05/16/22 11:28 05/16/22 11:28 Abnormal Lab Results - Last 24 Hours (Table) 05/16/22 05/16/22 05/16/22 Range/Units 11:28 11:28 11:28 RBC 1.90 L (3.80-5.40) m/uL Hgb 5.7 L* (11.4-16.0) gm/dL Hct 18.9 L* (34.0-46.0) % MCHC 30.1 L (31.0-37.0) g/dL RDW 18.0 H (11.5-15.5) % Lymphocytes # 0.6 L (1.0-4.8) k/uL Chloride 115 H (98-107) mmol/L Carbon Dioxide 15 L (22-30) mmol/L BUN 58 H (7-17) mg/dL Creatinine 1.65 H (0.52-1.04) mg/dL Glucose 144 H (74-99) mg/dL Calcium 7.8 L (8.4-10.2) mg/dL Alkaline Phosphatase 129 H (38-126) U/L Total Protein 5.7 L (6.3-8.2) g/dL Albumin 2.9 L (3.5-5.0) g/dL Crossmatch See Detail Assessment and Plan (1) Symptomatic anemia Current Visit: Yes Status: Acute Code(s): D64.9 - ANEMIA, UNSPECIFIED SNOMED Code(s): 857908359 (2) Ascites Current Visit: No Status: Acute Priority: High Code(s): R18.8 - OTHER ASCITES SNOMED Code(s): 244031621 (3) Bilateral lower extremity edema Current Visit: No Status: Acute Code(s): R60.0 - LOCALIZED EDEMA SNOMED Code(s): 075053778 (4) Heart failure Current Visit: No Status: Acute Code(s): I50.9 - HEART FAILURE, UNSPECIFIED SNOMED Code(s): 46671986 (5) Adenocarcinoma of the endometrium/uterus Current Visit: No Status: Chronic Priority: Medium Code(s): C54.1 - MALIGNANT NEOPLASM OF ENDOMETRIUM SNOMED Code(s): 068262495 (6) Chronic kidney disease Current Visit: No Status: Chronic Priority: Medium Code(s): N18.9 - CHRONIC KIDNEY DISEASE, UNSPECIFIED SNOMED Code(s): 347603585 Plan: This is a 67-year-old 0 woman with advanced endometrial adenocarcinoma, not a surgical candidate. She has undergone external beam radiation therapy in June 2021 and immunotherapy is being discussed. She has symptomatic ascites with known malignant effusion. She is symptomatic with abdominal discomfort and reaccumulation of the ascites and would likely benefit from paracentesis if medically appropriate. She has been on eloquis for history of pulmonary embolism. I Recommend in the setting of vaginal bleeding and severe anemia to NOT continue this. I discussed with the patient that unfortunately puts her at an increased risk of another embolic event however will make heavy vaginal bleeding less likely. We did discuss consultation with the palliative care team/hospice. She is interested in this occurring as it is important to her to not be dependent on anyone nor does she want to return to a shelter setting. She understands that if she were to resume significant heavy vaginal bleeding that our treatment options are extremely limited at this time. She states she would not want any further intervention other than to be kept comfortable. This discussion was had with the nursing staff in the room. At this time I would wait further recommendations from her medical oncology staff r egarding possibility of immunotherapy treatment in input on palliative care. Thank you for the consultation and if I can be of any further assistance or has take to call me.
[2022-05-16 20:10] LABS: Glucose,Whole Blood 174 mg/dL (70-110)
[2022-05-16] MEDS: MELATONIN 3 MG TABLET PO SCH (20:47)
[2022-05-16] MEDS: SODIUM BICARBONATE TAB 650 MG TAB PO SCH (20:47)
[2022-05-16] MEDS: CALCIUM CARB-VIT D 500 MG-5 MCG TAB PO SCH (20:47)
[2022-05-17] MEDS: hydrALAZINE HCL 25 MG TAB PO SCH ×4 (00:41→23:45)
[2022-05-17 06:22] LABS: Glucose,Whole Blood 139 mg/dL (70-110)
[2022-05-17] MEDS: INSULIN ASPART (NovoLOG) 100 UNIT/ML VIAL SQ SCH ×4 (06:23→20:21)
[2022-05-17] MEDS: carvediloL 6.25 MG TAB PO SCH ×2 (06:28→17:41)
[2022-05-17] MEDS ORDERED: LOPERAMIDE 2 MG CAP PO PRN (09:00)
[2022-05-17] MEDS: CALCIUM CARB-VIT D 500 MG-5 MCG TAB PO SCH ×2 (09:26→20:43)
[2022-05-17] MEDS: ISOSORBIDE MONONITRATE ER 30 MG TAB.ER.24H PO SCH (09:26)
[2022-05-17] MEDS: allopurinoL 100 MG TAB PO SCH (09:26)
[2022-05-17] MEDS: SODIUM BICARBONATE TAB 650 MG TAB PO SCH ×2 (09:26→20:42)
[2022-05-17] MEDS: HYDROcodone/APAP 5-325MG 1 EACH TAB PO PRN ×2 (09:27→17:41)
[2022-05-17] MEDS: FUROSEMIDE 40 MG TAB PO SCH ×2 (09:27→17:41)
[2022-05-17] MEDS: FERROUS SULFATE 325 MG TAB PO SCH (09:27)
[2022-05-17 09:32] LABS: Anisocytosis Slight; Basophils % (A) 1 %; Eosinophils # (A) 0.2 k/uL (0-0.7); Eosinophils % (A) 2 %; HCT 27.3 % (34.0-46.0); Hypochromasia Marked; Lymphocytes # (A) 0.5 k/uL (1.0-4.8); Lymphocytes % (A) 6 %; MCH 30.9 pg (25.0-35.0); MCV 96.6 fL (80.0-100.0); Macrocytosis Slight; Mean Platelet Volume 8.7; Monocytes # (A) 0.3 k/uL (0-1.0); Monocytes % (A) 4 %; Neutrophils # (A) 7.8 k/uL (1.3-7.7); Neutrophils % (A) 88 %; Platelet Count 244 k/uL (150-450); Poikilocytosis Slight; RBC 2.82 m/uL (3.80-5.40); RDW 17.5 % (11.5-15.5); WBC 8.9 k/uL (3.8-10.6)
--- NOTE | 2022-05-17 11:22 | P.PN ---
Subjective Progress Note Date: 05/17/22 Principal diagnosis: anemia Hospital Course: 67-year-old female with history of uterine cancer with malignant ascites, diastolic CHF, hypertension, diabetes, CKD presenting for symptomatic acute blood loss anemia. She is having malignant abdominal ascites, requiring regular therapeutic paracentesis. She presented to the emergency for paracentesis, was found to have hemoglobin of 5.9. She has noted vaginal bleeding over the last couple days, and has also noted increasing shortness of breath on exertion. On initial presentation,her vital signs were within normal limits. Her lab work was significant for hemoglobin of 5.7, and non-anion gap metabolic acidosis. She was given blood products and diuretics. She has an appropriate rise in hemoglobin with 3 and a transfusion. Her hemoglobin today was 8.7. Subjective: Patient seen and examined this appeared no acute events overnight. Currently she claims that her abdomen is more distended, causing her to have difficulty breathing. She denies any chest pain, nausea, vomiting, diarrhea, or const ipation, or urinary complaints. Pertinent positives and negatives as discussed above, a complete review of systems was performed and all other systems are negative. Vitals Signs Reviewed. General: nontoxic, no distress, appears at stated age Derm: warm, dry Head: atraumatic, normocephalic, symmetric Eyes: EOMI, no lid lag, anicteric sclera, pupils equal round reactive to light, ENT: Nose and ears atraumatic Neck: No thyromegaly, supple Mouth: no lip lesion, mucus membranes moist Cardiovascular: S1S2 reg, no murmur, 2+ peripheral edema up to knees Lungs: clear to auscultation bilateral, no rhonchi, no rales, no wheeze, no accessory muscle use Abdominal: soft, nontender to palpation, distended, tympanitic, no guarding, no appreciable organomegaly Ext: no gross muscle atrophy, muscle strength muscle strength 5 out of 5 in all 4 extremities, no contractures Neuro: CN II-XII grossly intact Psych: Alert, oriented, appropriate affect Assessment and Plan: Acute blood loss anemia, symptomatic Metastatic uterine cancer with malignant ascites Postmenopausal bleeding -s/p transfusion 3 units of pRBCs -gynecology and oncology consult -Paracentesis pending -hold Eliquis -hospice consult Non-anion gap metabolic acidosis -Possibly in the setting of diarrhea -On sodium bicarb Chronic diastolic heart failure Hypertension Diabetes - will hold oral antidiabetic medications, start on SSI Chronic kidney disease -Medications reviewed and reconciled DVT ppx: SCD Code status: no code Anticipated discharge place: Home Anticipated discharge time: 1- 2 days Objective - Vital Signs Vital signs: Vital Signs Temp 97.6 F 05/17/22 04:29 Pulse 61 05/17/22 04:29 Resp 16 05/17/22 04:29 BP 148/69 05/17/22 04:29 Pulse Ox 92 L 05/17/22 04:29 FiO2 Intake & Output 05/16/22 05/17/22 05/17/22 18:59 06:59 18:59 Intake Total 550 620 0 Output Total 550 Balance 550 70 0 Weight 108.862 kg Intake: Oral 240 0 Blood Product 310 620 Rc As-1 Unit 310 [id number] Rc As-1 Unit 310 [id number] Rc As-1 Unit 0 310 [id number] Output: Urine 550 Other: Voiding Method External Catheter External Catheter - Labs CBC & Chem 7: 05/17/22 07:55 05/16/22 11:28 Labs: Abnormal Lab Results - Last 24 Hours (Table) 05/16/22 05/16/22 05/16/22 Range/Units 11:28 11:28 11:28 RBC 1.90 L (3.80-5.40) m/uL Hgb 5.7 L* (11.4-16.0) gm/dL Hct 18.9 L* (34.0-46.0) % MCHC 30.1 L (31.0-37.0) g/dL RDW 18.0 H (11.5-15.5) % Neutrophils # (1.3-7.7) k/uL Lymphocytes # 0.6 L (1.0-4.8) k/uL Chloride 115 H (98-107) mmol/L Carbon Dioxide 15 L (22-30) mmol/L BUN 58 H (7-17) mg/dL Creatinine 1.65 H (0.52-1.04) mg/dL Glucose 144 H (74-99) mg/dL POC Glucose (mg/dL) (70-110) mg/dL Calcium 7.8 L (8.4-10.2) mg/dL Alkaline Phosphatase 129 H (38-126) U/L Total Protein 5.7 L (6.3-8.2) g/dL Albumin 2.9 L (3.5-5.0) g/dL Crossmatch See Detail 05/16/22 05/16/22 05/17/22 Range/Units 16:44 20:09 06:19 RBC (3.80-5.40) m/uL Hgb (11.4-16.0) gm/dL Hct (34.0-46.0) % MCHC (31.0-37.0) g/dL RDW (11.5-15.5) % Neutrophils # (1.3-7.7) k/uL Lymphocytes # (1.0-4.8) k/uL Chloride (98-107) mmol/L Carbon Dioxide (22-30) mmol/L BUN (7-17) mg/dL Creatinine (0.52-1.04) mg/dL Glucose (74-99) mg/dL POC Glucose (mg/dL) 149 H 174 H 139 H (70-110) mg/dL Calcium (8.4-10.2) mg/dL Alkaline Phosphatase (38-126) U/L Total Protein (6.3-8.2) g/dL Albumin (3.5-5.0) g/dL Crossmatch 05/17/22 Range/Units 07:55 RBC 2.82 L (3.80-5.40) m/uL Hgb 8.7 L D (11.4-16.0) gm/dL Hct 27.3 L (34.0-46.0) % MCHC (31.0-37.0) g/dL RDW 17.5 H (11.5-15.5) % Neutrophils # 7.8 H (1.3-7.7) k/uL Lymphocytes # 0.5 L (1.0-4.8) k/uL Chloride (98-107) mmol/L Carbon Dioxide (22-30) mmol/L BUN (7-17) mg/dL Creatinine (0.52-1.04) mg/dL Glucose (74-99) mg/dL POC Glucose (mg/dL) (70-110) mg/dL Calcium (8.4-10.2) mg/dL Alkaline Phosphatase (38-126) U/L Total Protein (6.3-8.2) g/dL Albumin (3.5-5.0) g/dL Crossmatch
[2022-05-17 11:38] LABS: Glucose,Whole Blood 161 mg/dL (70-110)
[2022-05-17 16:36] LABS: Glucose,Whole Blood 127 mg/dL (70-110)
[2022-05-17 20:14] LABS: Glucose,Whole Blood 128 mg/dL (70-110)
[2022-05-17] MEDS: MELATONIN 3 MG TABLET PO SCH (20:43)
[2022-05-17] MEDS ORDERED: MORPHINE SULFATE 2 MG/ML SYRINGE IVP PRN (21:56)
--- NOTE | 2022-05-17 22:24 | P.CONS ---
History of Present Illness - Reason for Consult Consult date: 05/17/22 uterine carcinoma Requesting physician: Didier Schuler - Chief Complaint Anemia - History of Present Illness Mrs. Guillen is a very pleasant female of Dr. Ryder José with a PMH of HTN, DMII and CKD. She was diagnosed with poorly differentiated endometrial adenocarcinoma in Mar 2021. She received radiation as definitive treatment. She unfortunately had recurrence late November 2021, paracentesis was done, positive ascitic fluid. She was sent to rehab and had extended stay at [facility]. Unfortunately treatment could not discussed until pt in better shape. She was seen 03/30. Her PS was poor so, somatic, biomarker and genetic testing was done to see if options other then chemo could be offered. MSI was high, ER/MD +/+ [id number]. She was seen 05/05/22, she was still at [facility] with plan for DC 05/09/22. She was discharged last Sun. Her abd distension has been progressively worsening, her BLE swelling has also progressed. She started having severe vaginal bleeding and weakness followed. She is admitted with Hgb 5.7, s/p 3 units, Hgb 8.7. She report bleeding has slowed down significantly. Her eliquis, for PE in Mar, is on hold. Denies fever, nausea, has poor appetite, moderate SOB with activity. Review of Systems 10 point ROS is neg except as stated in HPI Past Medical History Past Medical History: Cancer, Heart Failure, Diabetes Mellitus, Hyperlipidemia, Hypertension, Renal Disease Additional Past Medical History / Comment(s): anemia, pulmonary edema, gout, weakness, uterine Ca, ascites History of Any Multi-Drug Resistant Organisms: None Reported Past Surgical History: No Surgical Hx Reported Past Anesthesia/Blood Transfusion Reactions: No Reported Reaction Past Psychological History: Depression Smoking Status: Never smoker Past Alcohol Use History: None Reported Past Drug Use History: None Reported - Past Family History Father Family Medical History: Myocardial Infarction ([place]) Additional Family Medical History / Comment(s): father of OR at 58 years old Mother Family Medical History: No Reported History Additional Family Medical History / Comment(s): mother of old age at 95 years old Medications and Allergies Home Medications Medication Instructions Recorded Confirmed Type allopurinoL [Zyloprim] 100 mg PO DAILY 12/16/20 05/16/22 History Linagliptin [Tradjenta] 5 mg PO DAILY 08/02/21 05/16/22 History Ferrous Sulfate [Iron (65 MG 325 mg PO DAILY 10/11/21 05/16/22 History Elemental)] Insulin Lispro [humaLOG Kwikpen] See Protocol SQ ACHS PRN 12/10/21 05/16/22 History Apixaban [Eliquis] 5 mg PO BID 30 Days #60 tab 12/20/21 05/16/22 Rx Cholestyramine/Aspartame 4 gm PO DAILY PRN 03/07/22 05/16/22 History [Cholestyramine Light Packet] Acetaminophen Tab [Tylenol] 650 mg PO Q6HR PRN tab 03/14/22 05/16/22 Rx Docusate [Colace] 100 mg PO BID PRN cap 03/14/22 05/16/22 Rx Furosemide [Lasix] 40 mg PO BID 04/11/22 05/16/22 History Isosorbide Mononitrate ER [Imdur] 30 mg PO DAILY 04/11/22 05/16/22 History NIFEdipine XL [Procardia XL] 60 mg PO DAILY 04/11/22 05/16/22 History Sodium Bicarbonate Tab 650 mg PO BID 04/11/22 05/16/22 History carvediloL [Coreg] 6.25 mg PO BID 04/11/22 05/16/22 History HYDROcodone/APAP 5-325MG [[place] 1 tab PO TID PRN #9 tab 04/13/22 05/16/22 Rx 5-325] Mckay-Gest 500mg 2 tab PO Q4H PRN 05/16/22 05/16/22 History Calcium Carbonate/Vitamin D3 2 tab PO BID 05/16/22 05/16/22 History [Oyster Shell 250 mg-D3 3.12 mcg (125 Iu)] Melatonin 3 mg PO HS 05/16/22 05/16/22 History hydrALAZINE HCL [Apresoline] 25 mg PO Q8HR 05/16/22 05/16/22 History Allergies Allergy/AdvReac Type Severity Reaction Status Date / Time No Known Allergies Allergy Verified 05/16/22 12:00 Physical Exam Vitals: Vital Signs Temp Pulse Pulse Resp BP BP Pulse Ox 05/17/22 04:29 97.6 F 61 16 148/69 92 L 05/17/22 02:00 62 16 05/17/22 01:04 97.8 F 58 L 16 127/58 94 L 05/17/22 00:37 97.5 F L 58 L 16 127/62 93 L 05/16/22 22:22 97.7 F 60 16 119/55 92 L 05/16/22 22:03 97.8 F 57 L 16 116/58 94 L 05/16/22 22:02 57 L 16 116/58 94 L 05/16/22 21:34 64 16 128/56 94 L 05/16/22 21:32 97.4 F L 64 16 128/56 94 L 05/16/22 20:00 97.4 F L 62 16 128/56 94 L 05/16/22 18:50 97.3 F L 67 125/60 92 L 05/16/22 18:30 97.3 F L 63 123/58 95 05/16/22 18:20 97.3 F L 64 121/57 91 L 05/16/22 16:15 97.4 F L 60 147/65 92 L 05/16/22 16:00 97.4 F L 60 147/65 92 L 05/16/22 14:30 60 18 149/67 93 L 05/16/22 13:38 18 158/67 96 05/16/22 13:17 62 149/67 93 L 05/16/22 12:57 97.1 F L 76 18 161/68 05/16/22 12:52 96.9 F L 96 16 142/69 05/16/22 10:47 98.1 F 62 20 160/69 97 Intake and Output 05/16/22 05/17/22 05/17/22 22:59 06:59 14:59 Intake Total 860 310 0 Output Total 150 400 Balance 710 -90 0 Intake: Oral 240 0 Blood Product 620 310 Rc As-1 Unit 0 310 [id number] Rc As-1 Unit 310 [id number] Rc As-1 Unit 310 [id number] Output: Urine 150 400 Other: Voiding Method External Catheter External Catheter - Constitutional General appearance: cooperative, mild distress, obese - EENT Eyes: anicteric sclerae, EOMI ENT: hearing grossly normal, normal oropharynx - Neck Neck: no lymphadenopathy - Respiratory Respiratory: bilateral: CTA, diminished (bases) - Cardiovascular Rhythm: regular Heart sounds: normal: S1, S2 Abnormal Heart Sounds: no systolic murmur, no diastolic murmur, no rub, no S3 Gallop, no S4 Gallop, no click, no other - Gastrointestinal General gastrointestinal: no absent bowel sounds, no decreased bowel sounds, distended, no hepatomegaly, no hyperactive bowel sounds, normal bowel sounds, no organomegaly, no rigid, no scaphoid, soft, no splenomegaly, no tenderness, no umbilical hernia, no ventral hernia - Integumentary Integumentary: pale - Neurologic Neurologic: CNII-XII intact - Musculoskeletal Musculoskeletal: generalized weakness - Psychiatric Psychiatric: A&O x's 3, appropriate affect, intact judgment & insight Results CBC & Chem 7: 05/17/22 07:55 05/16/22 11:28 Labs: Abnormal Lab Results - Last 24 Hours (Table) 05/16/22 05/16/22 05/16/22 Range/Units 11:28 11:28 11:28 RBC 1.90 L (3.80-5.40) m/uL Hgb 5.7 L* (11.4-16.0) gm/dL Hct 18.9 L* (34.0-46.0) % MCHC 30.1 L (31.0-37.0) g/dL RDW 18.0 H (11.5-15.5) % Lymphocytes # 0.6 L (1.0-4.8) k/uL Chloride 115 H (98-107) mmol/L Carbon Dioxide 15 L (22-30) mmol/L BUN 58 H (7-17) mg/dL Creatinine 1.65 H (0.52-1.04) mg/dL Glucose 144 H (74-99) mg/dL POC Glucose (mg/dL) (70-110) mg/dL Calcium 7.8 L (8.4-10.2) mg/dL Alkaline Phosphatase 129 H (38-126) U/L Total Protein 5.7 L (6.3-8.2) g/dL Albumin 2.9 L (3.5-5.0) g/dL Crossmatch See Detail 05/16/22 05/16/22 05/17/22 Range/Units 16:44 20:09 06:19 RBC (3.80-5.40) m/uL Hgb (11.4-16.0) gm/dL Hct (34.0-46.0) % MCHC (31.0-37.0) g/dL RDW (11.5-15.5) % Lymphocytes # (1.0-4.8) k/uL Chloride (98-107) mmol/L Carbon Dioxide (22-30) mmol/L BUN (7-17) mg/dL Creatinine (0.52-1.04) mg/dL Glucose (74-99) mg/dL POC Glucose (mg/dL) 149 H 174 H 139 H (70-110) mg/dL Calcium (8.4-10.2) mg/dL Alkaline Phosphatase (38-126) U/L Total Protein (6.3-8.2) g/dL Albumin (3.5-5.0) g/dL Crossmatch Assessment and Plan (1) Dysfunctional uterine bleeding Current Visit: Yes Status: Acute Priority: High Code(s): N93.8 - OTHER SPECIFIED ABNORMAL UTERINE AND VAGINAL BLEEDING SNOMED Code(s): 01481213301917 (2) Symptomatic anemia Current Visit: Yes Status: Acute Priority: High Code(s): D64.9 - ANEMIA, UNSPECIFIED SNOMED Code(s): 712250789 (3) Adenocarcinoma of the endometrium/uterus Current Visit: Yes Status: Chronic Priority: Medium Code(s): C54.1 - MALIGNANT NEOPLASM OF ENDOMETRIUM SNOMED Code(s): 876545721 Plan: Pt is s/p 3 units PRBCs for recent heavy uterine bleeding. Pt reports bleeding is only minimal now. This happens randomly per her reports. Pt has small PE diagnosed in January, been on eliquis for the same. This was held on admit. Will likely resume at lower dose. Plan for paracentesis once pt stable D/W Top Lift Compressor-pt needs to be in AFC that will allow her to go to appt and have chemo. Treatment will help reduce ascites, BLE swelling, which will help her SOB being created by abd distension and pl effusion from ascitic fluid. Attests: I have seen and examined pt, performed H&P, developed impression and plan of care. Discussed with dictator. Agree with documentation, dictated as a scribe.
[2022-05-18] MEDS: HYDROcodone/APAP 5-325MG 1 EACH TAB PO PRN (02:03)
[2022-05-18] MEDS ORDERED: PANTOPRAZOLE 40 MG/10 ML VIAL IVP ONE (03:57)
[2022-05-18 04:47] LABS: Anisocytosis Slight; HCT 26.3 % (34.0-46.0); HGB 8.5 gm/dL (11.4-16.0); Hypochromasia Marked; MCH 31.4 pg (25.0-35.0); MCHC 32.3 g/dL (31.0-37.0); MCV 97.2 fL (80.0-100.0); Macrocytosis Slight; Mean Platelet Volume 8.3; Platelet Count 232 k/uL (150-450); Poikilocytosis Slight; WBC 9.9 k/uL (3.8-10.6)
[2022-05-18 06:07] LABS: Glucose,Whole Blood 163 mg/dL (70-110)
[2022-05-18] MEDS: INSULIN ASPART (NovoLOG) 100 UNIT/ML VIAL SQ SCH ×4 (06:15→20:50)
[2022-05-18] MEDS: carvediloL 6.25 MG TAB PO SCH ×2 (06:30→17:37)
[2022-05-18] MEDS ORDERED: ONDANSETRON 4 MG/2 ML VIAL IVP PRN (09:44)
[2022-05-18 11:44] LABS: Glucose,Whole Blood 162 mg/dL (70-110)
--- NOTE | 2022-05-18 11:59 | US ---
Ultrasound-guided paracentesis. DATE OF EXAM: 05/18/2022 CLINICAL HISTORY: Ascites The procedure was discussed with the patient. The risks, complications, benefits, and alternatives we re discussed and any questions were answered. Informed consent was obtained. The patient was placed s upine on the ultrasound table and prepped and draped in the usual sterile fashion. All elements of maximal barrier technique were utilized. Under ultrasound guidance, access into the left lower quadrant was obtained, via the paracentesis catheter system and direct ultrasound guidance . Approximately 2 liters of straw-colored fluid was removed. The patient was stable throughout the proc edure and remained stable upon discharge from Department of Radiology. IMPRESSION: Successful paracentesis under ultrasound guidance.
[2022-05-18] MEDS: hydrALAZINE HCL 25 MG TAB PO SCH ×3 (12:55→23:52)
[2022-05-18] MEDS: CALCIUM CARB-VIT D 500 MG-5 MCG TAB PO SCH ×2 (13:26→20:44)
[2022-05-18] MEDS: allopurinoL 100 MG TAB PO SCH (13:26)
[2022-05-18] MEDS: ISOSORBIDE MONONITRATE ER 30 MG TAB.ER.24H PO SCH (13:26)
[2022-05-18] MEDS: APIXABAN 2.5 MG TABLET PO SCH ×2 (13:26→20:44)
[2022-05-18] MEDS: SODIUM BICARBONATE TAB 650 MG TAB PO SCH ×2 (13:26→20:45)
[2022-05-18] MEDS: FERROUS SULFATE 325 MG TAB PO SCH (13:26)
[2022-05-18] MEDS: FUROSEMIDE 40 MG TAB PO SCH ×2 (13:26→17:37)
--- NOTE | 2022-05-18 14:09 | P.CONS ---
History of Present Illness - Reason for Consult Consult date: 05/18/22 Goals of care Requesting physician: Didier Schuler - Chief Complaint Abdominal pain - History of Present Illness Patient is a 67-year-old female presenting to the emergency room from interventional radiology where she was at today for a therapeutic paracentesis for ascites secondary to her metastatic uterine cancer. There she was complaining of generalized weakness, fatigue and shortness of breath with exertion which she felt was not related to her ascites interventional radiology to blood on her and found that her hemoglobin was 5.9 consequently she was sent to the emergency room. She states that she was having significant vaginal bleeding 3 days ago in which she passed large clots. She has not had any vaginal bleeding in the last 24 hours. She reports that she was evaluated at [facility] in regards to her cancer and was deemed not a surgical candidate due to severe comorbid conditions including severe pulmonary hypertension, CHF with preserved ejection fraction and chronic kidney disease. She is currently on Eliquis for a pulmonary emboli however the Eliquis was placed on hold 48 hours ago in preparation for her paracentesis. She was complaining of some abdominal pain and nausea without vomiting which she attributes to her ascites. She denied any chest pain, shortness of breath at rest, headache, dizziness, fevers or chills. She has chronic lower extremity edema which she states is unchanged and has dressings on. In addition to her past medical history as stated above she also has a past medical history significant for pericardial effusion chronic iron deficiency anemia, hypertension, hyperlipidemia and diabetes. Review of Systems Constitutional: Reports as per HPI Past Medical History Past Medical History: Cancer, Heart Failure, Diabetes Mellitus, Hyperlipidemia, Hypertension, Renal Disease Additional Past Medical History / Comment(s): anemia, pulmonary edema, gout, weakness, uterine Ca, ascites History of Any Multi-Drug Resistant Organisms: None Reported Past Surgical History: No Surgical Hx Reported Past Anesthesia/Blood Transfusion Reactions: No Reported Reaction Past Psychological History: Depression Smoking Status: Never smoker Past Alcohol Use History: None Reported Past Drug Use History: None Reported - Past Family History Father Family Medical History: Myocardial Infarction ([place]) Additional Family Medical History / Comment(s): father of [place] at 58 years ol d Mother Family Medical History: No Reported History Additional Family Medical History / Comment(s): mother of old age at 95 years old Medications and Allergies Home Medications Medication Instructions Recorded Confirmed Type allopurinoL [Zyloprim] 100 mg PO DAILY 12/16/20 05/16/22 History Linagliptin [Tradjenta] 5 mg PO DAILY 08/02/21 05/16/22 History Ferrous Sulfate [Iron (65 MG 325 mg PO DAILY 10/11/21 05/16/22 History Elemental)] Insulin Lispro [humaLOG Kwikpen] See Protocol SQ ACHS PRN 12/10/21 05/16/22 History Apixaban [Eliquis] 5 mg PO BID 30 Days #60 tab 12/20/21 05/16/22 Rx Cholestyramine/Aspartame 4 gm PO DAILY PRN 03/07/22 05/16/22 History [Cholestyramine Light Packet] Acetaminophen Tab [Tylenol] 650 mg PO Q6HR PRN tab 03/14/22 05/16/22 Rx Docusate [Colace] 100 mg PO BID PRN cap 03/14/22 05/16/22 Rx Furosemide [Lasix] 40 mg PO BID 04/11/22 05/16/22 History Isosorbide Mononitrate ER [Imdur] 30 mg PO DAILY 04/11/22 05/16/22 History NIFEdipine XL [Procardia XL] 60 mg PO DAILY 04/11/22 05/16/22 History Sodium Bicarbonate Tab 650 mg PO BID 04/11/22 05/16/22 History carvediloL [Coreg] 6.25 mg PO BID 04/11/22 05/16/22 History HYDROcodone/APAP 5-325MG [[place] 1 tab PO TID PRN #9 tab 04/13/22 05/16/22 Rx 5-325] Mckay-Gest 500mg 2 tab PO Q4H PRN 05/16/22 05/16/22 History Calcium Carbonate/Vitamin D3 2 tab PO BID 05/16/22 05/16/22 History [Oyster Shell 250 mg-D3 3.12 mcg (125 Iu)] Melatonin 3 mg PO HS 05/16/22 05/16/22 History hydrALAZINE HCL [Apresoline] 25 mg PO Q8HR 05/16/22 05/16/22 History Allergies Allergy/AdvReac Type Severity Reaction Status Date / Time No Known Allergies Allergy Verified 05/16/22 12:00 Physical Exam Vitals: Vital Signs Temp Pulse Pulse Resp BP BP Pulse Ox 05/18/22 11:10 98.8 F 79 18 158/67 90 L 05/18/22 10:20 78 16 163/81 97 05/18/22 10:13 79 16 158/79 96 05/18/22 10:10 76 14 171/78 98 05/18/22 09:55 96 05/18/22 09:47 78 16 171/70 98 05/18/22 09:45 76 16 175/75 97 05/18/22 09:30 79 16 05/18/22 04:00 98.0 F 73 18 154/69 97 05/18/22 01:23 16 05/17/22 23:46 98.4 F 70 18 144/57 96 05/17/22 20:00 98.6 F 66 16 149/63 94 L 05/17/22 15:20 98.8 F 72 16 187/83 97 Intake and Output 05/17/22 05/18/22 05/18/22 22:59 06:59 14:59 Output Total 550 450 Balance -550 -450 Output: Urine 550 450 Other: Voiding Method External Catheter External Catheter External Catheter # Voids 1 1 General: Well developed, well nourished. No acute distress. Chronically ill appearing HEENT: Head is atraumatic, normocephalic. Sclera are clear. CV: Heart regular in rate and rhythm positive S1 and S2. No clicks, rubs or murmurs. Peripheral pulses equal. 2/4 Lungs: Clear to auscultation bilaterally. No wheezes rales or rhonchi. Respirations even and nonlabored. Abdomen/GI: Soft. distended. No guarding, rigidity, or abdominal tenderness. Musculoskeletal/ Extremities: LEIGH, no joint deformity or swelling. No gross atrophy. + generalized weakness Vascular: +2 LE edema Skin: Pale,Warm, and dry Neurologic: Awake, alert and oriented times 3. CN II-XII grossly intact. No focal deficits. Psychiatric: Appropriate mood and affect. 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 * Marital status - Single * Children/grandchildren - No children * Residence - House * Who do you reside with - Self * ETOH - No * Tobacco - No * Illicit drugs - No Spiritual/Cultural * A spiritual person - No * Christianity - N/A Functional Assessment * Able to walk independently - Yes * Assistive devices - Walker * Able to use the bathroom independently - Yes * Continent - Occasionally incontinent * Require assistance bathing- Yes * Able to feed self - YEs * Who prepares meals - Patient * How many meals a day eaten - 2-3 * Able to clean house/do laundry - Somewhat * Transportation - Patient drives * Able to shop -Yes * Who manages medications -Patient * Who manages finances - Patient Psychological/Emotional * Dementia present - No * Insight and judgment - Intact * Depression - No * Suicidal thoughts - No * Good support system - Yes, friends * Patients goals - optimize functionality * Frequent hospitalizations - No * Desire to keep coming back to the hospital for treatment - Yes Symptoms * Pain - 7/10 abdominal pain. Continue Tylenol, [place], and Morphine. * Fatigue - Yes, tired and weak, Continue Feosol * SOB - Occasionally, COntinue Lasix * Insomnia - Occasionally, continue Melatonin * N/V - Occasionally, Continue Zofran * Anxiety - No * Depression - No * Confusion - No * Agitation - No * Hallucinations - No * Appetite/weight loss - Good appetite, no recent weight loss * Dysphagia - No * Constipation - No, she has had recent diarrhea LBM 05/17 * Incontinence - External catheter * Itch - No * Cough - No Plan: Summary/Goals - The patient is resting in bed. She reports 7/10 abdominal pain. She was encouraged to ask for her pain medication. She had a paracentesis today with 2.5L removed. The patient understands her Uterine cancer prognosis. She underwent radiation treatment and had a reoccurrence a short time afterward. She stated that she talked to her oncologist. She knows she is not a surgical candidate for a hysterectomy due to her cardiac issues. She would like to try immunotherapy since she was told it would help with her ascites, leg swelling, and pleural effusions. She states "I just want to feel better". Her goal is to become more active. She plans on moving to an assisted living where they prepare her meals and provide transportation. She would like to continue physical therapy through residential. Palliative care philosophies and services explained to the patient. She stated she is interested in it as outpatient to help prevent her from having to come back to the hospital so often. She could also use it as a bridge to hospice when she declined down the road. She would like to talk it over with her friends and is considering it. Will follow up tomorrow. Recommendations - Assisted living with HHC, PT/OT, and O palliative care Advanced Directives - no Code Status - DNR Thank you for this consultation [facility]- Palliative Care [facility] [address] Email: [email or web address] Time with Patient: Greater than 30
--- NOTE | 2022-05-18 16:08 | P.PN ---
Subjective Progress Note Date: 05/18/22 (delayed charting seen at 1005) Patient is a 67-year-old female with metastatic uterine cancer and malignant ascites, diastolic CHF, hypertension, diabetes, and chronic kidney disease who presented to the ER with symptomatic acute blood loss anemia. Patient requires therapeutic paracentesis on a regular basis. When she had pre-paracentesis labs her hemoglobin was found to be 5.9 and she was directed to the ER. She had noticed some vaginal bleeding over the last several days. On arrival her hemoglobin was 5.7, creatinine 1.65 which is at her baseline, and the remainder of labs were consistent with her underlying problem. She is admitted for further monitoring. She was ordered-blood cells. Her hemoglobin was monitored. She received a total of 3 units of packed red blood cells. She was seen by YELLOW PAGES SPACE SALESPERSON who recommended discontinuation of her anticoagulation as well as hospice care. She was seen by hematology/oncology stated she could still benefit from therapy and they recommended lower dose anticoagulation. Patient's hemoglobin stabilized. Patient seen and examined at bedside. She still feels very weak. She was having some nausea after taking her pills today and being nothing by mouth. She is feeling somewhat better after her paracentesis. General: nontoxic, no distress, appears at stated age Derm: warm, dry Head: atraumatic, normocephalic, symmetric Eyes: EOMI, no lid lag, anicteric sclera Mouth: no lip lesion, mucus membranes moist Cardiovascular: S1S2 reg, no murmur, positive posterior tibial pulse bilateral, Lungs: Decreased breath sounds bilateral, no rhonchi, no rales , no accessory muscle use Abdominal: soft, nontender to palpation, no guarding, no appreciable organomegaly Ext: no gross muscle atrophy, no edema, no contractures Neuro: CN II-XI grossly intact, no focal neuro deficits Psych: Alert, oriented, appropriate affect Assessment/Plan: Acute Blood Loss Anemia, symptomatic Metastatic uterine cancer with malignant ascites Postmenopausal bleeding -s/p transfusion 3 units of pRBCs -humanities department chair 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 José will resume Eliquis at 2.5 mg daily -Paracentesis completed 05/18/22 -follow CBC Non-anion gap metabolic acidosis -Possibly in the setting of diarrhea -On sodium bicarb Diabetes Mellitus - SSI - hold metformin - resume tradjenta Weakness and debility -PT/OT -Plan is to go to assisted living on discharge. Working with case management. Chronic diastolic heart failure Hypertension Chronic kidney disease III at baseline Anticipated discharge place: assisted living Anticipated discharge time: 1- 2 days Active Medications Generic Name Dose Route Start Last Admin Trade Name Eliuq PRN Reason Stop Dose Admin Acetaminophen 650 mg 05/16/22 12:46 05/16/22 20:52 Acetaminophen Tab 325 Mg Tab PO 650 mg Q6HR PRN Administration Mild Pain or Fever > 100.5 Hydrocodone Bitart/Acetaminophen 1 each 05/16/22 13:59 05/18/22 02:03 Hydrocodone/Apap 5-325mg 1 Each Tab PO 1 each TID PRN Administration Pain Allopurinol 100 mg 05/17/22 09:00 05/18/22 13:26 Allopurinol 100 Mg Tab PO 100 mg DAILY LOVE Administration Apixaban 2.5 mg 05/18/22 11:30 05/18/22 13:26 Apixaban 2.5 Mg Tablet PO 2.5 mg BID LOVE Administration Protocol Calcium Carbonate 2 each 05/16/22 21:00 05/18/22 13:26 Calcium Carb-Vit D 500 Mg-5 Mcg Tab PO 2 each BID LOVE Administration Carvedilol 6.25 mg 05/16/22 17:30 05/18/22 06:30 Carvedilol 6.25 Mg Tab PO 6.25 mg BID-W/MEALS LOVE Administration Dextrose/Water 25 ml 05/16/22 16:04 Dextrose 50% Syringe 50 Ml IVP PER PROTOCOL PRN Hypoglycemia Protocol Dextrose/Water 50 ml 05/16/22 16:04 Dextrose 50% Syringe 50 Ml IVP PER PROTOCOL PRN Hypoglycemia Protocol Docusate Sodium 100 mg 05/16/22 13:59 Docusate 100 Mg Cap PO BID PRN Constipation Ferrous Sulfate 325 mg 05/17/22 09:00 05/18/22 13:26 Ferrous Sulfate 325 Mg Tab PO 325 mg DAILY LOVE Administration Furosemide 40 mg 05/16/22 16:00 05/18/22 13:26 Furosemide 40 Mg Tab PO 40 mg BID@0900,1600 LOVE Administration Hydralazine HCl 25 mg 05/16/22 16:00 05/18/22 13:26 Hydralazine Hcl 25 Mg Tab PO 25 mg Q8HR LOVE Administration Insulin Aspart 0 unit 05/16/22 17:30 05/18/22 13:28 Insulin Aspart (Novolog) 100 Unit/Ml Vial SQ 2 unit ACHS LOVE Administration Protocol Isosorbide Mononitrate 30 mg 05/17/22 09:00 05/18/22 13:26 Isosorbide Mononitrate Er 30 Mg Tab.Er.24h PO 30 mg DAILY LOVE Administration Loperamide HCl 2 mg 05/17/22 09:00 05/17/22 09:27 Loperamide 2 Mg Cap PO 2 mg QID PRN Administration Diarrhea Melatonin 3 mg 05/16/22 21:00 05/17/22 20:43 Melatonin 3 Mg Tablet PO 3 mg HS LOVE Administration Morphine Sulfate 2 mg 05/17/22 21:56 05/17/22 22:13 Morphine Sulfate 2 Mg/Ml Syringe IVP 2 mg Q4HR PRN Administration Pain/Discomfort Naloxone HCl 0.2 mg 05/16/22 12:46 Naloxone 0.4 Mg/Ml 1 Ml Vial IV Q2M PRN Opioid Reversal Nifedipine 60 mg 05/17/22 09:00 05/18/22 13:28 Nifedipine Xl 60 Mg Tab.Er.24 PO 60 mg DAILY LOVE Administration Ondansetron HCl 4 mg 05/18/22 09:44 Ondansetron 4 Mg/2 Ml Vial IVP Q6HR PRN Nausea And Vomiting Pantoprazole Sodium 40 mg 05/18/22 16:00 Pantoprazole 40 Mg/10 Ml Vial IVP BID [facility] Sodium Bicarbonate 650 mg 05/16/22 21:00 05/18/22 13:26 Sodium Bicarbonate Tab 650 Mg Tab PO 650 mg BID LOVE Administration Objective - Vital Signs Vital signs: Vital Signs Temp 98.4 F 05/18/22 16:00 Pulse 73 05/18/22 16:00 Resp 18 05/18/22 16:00 BP 174/77 05/18/22 16:00 Pulse Ox 94 L 05/18/22 16:00 FiO2 Intake & Output 05/17/22 05/18/22 05/18/22 18:59 06:59 18:59 Intake Total 0 118 Output Total 1000 Balance 0 -1000 118 Intake: Oral 0 118 Output: Urine 1000 Other: Voiding Method External Catheter External Catheter External Catheter # Voids 1 1 # Bowel Movements 2 - Labs CBC & Chem 7: 05/18/22 04:20 05/16/22 11:28 Labs: Abnormal Lab Results - Last 24 Hours (Table) 05/17/22 05/17/22 05/18/22 Range/Units 16:35 20:12 04:20 RBC 2.70 L (3.80-5.40) m/uL Hgb 8.5 L (11.4-16.0) gm/dL Hct 26.3 L (34.0-46.0) % RDW 18.0 H (11.5-15.5) % POC Glucose (mg/dL) 127 H 128 H (70-110) mg/dL 05/18/22 05/18/22 Range/Units 06:05 11:42 RBC (3.80-5.40) m/uL Hgb (11.4-16.0) gm/dL Hct (34.0-46.0) % RDW (11.5-15.5) % POC Glucose (mg/dL) 163 H 162 H (70-110) mg/dL
[2022-05-18 16:23] LABS: Glucose,Whole Blood 150 mg/dL (70-110)
[2022-05-18] MEDS: PANTOPRAZOLE 40 MG/10 ML VIAL IVP SCH ×2 (17:37→20:48)
--- NOTE | 2022-05-18 18:36 | P.PN ---
Subjective Progress Note Date: 05/18/22 Principal diagnosis: Uterine carcinoma, vaginal bleeding In follow-up today patient is status post paracentesis, she is reporting feeling more comfortable, less short of breath. She is not having any significant vaginal bleeding to report at this time. Her hemoglobin is stable Objective - Vital Signs Vital signs: Vital Signs Temp 98.4 F 05/18/22 16:00 Pulse 73 05/18/22 16:00 Resp 16 05/18/22 16:00 BP 174/77 05/18/22 16:00 Pulse Ox 94 L 05/18/22 16:00 FiO2 Intake & Output 05/17/22 05/18/22 05/18/22 18:59 06:59 18:59 Intake Total 0 358 Output Total 1000 Balance 0 -1000 358 Intake: Oral 0 358 Output: Urine 1000 Other: Voiding Method External Catheter External Catheter External Catheter # Voids 1 1 # Bowel Movements 2 1 - Constitutional General appearance: Present: cooperative, no acute distress, obese - EENT Eyes: Present: anicteric sclerae, EOMI ENT: Present: hearing grossly normal - Respiratory Details: Respirations even and unlabored at rest, improved from yesterday - Gastrointestinal General gastrointestinal: Present: distended, normal bowel sounds, soft - Neurologic Neurologic: Present: CNII-XII intact - Musculoskeletal Musculoskeletal: Present: generalized weakness - Psychiatric Psychiatric: Present: A&O x's 3, appropriate affect, intact judgment & insight - Labs CBC & Chem 7: 05/18/22 04:20 05/16/22 11:28 Labs: Abnormal Lab Results - Last 24 Hours (Table) 05/17/22 05/18/22 05/18/22 Range/Units 20:12 04:20 06:05 RBC 2.70 L (3.80-5.40) m/uL Hgb 8.5 L (11.4-16.0) gm/dL Hct 26.3 L (34.0-46.0) % RDW 18.0 H (11.5-15.5) % POC Glucose (mg/dL) 128 H 163 H (70-110) mg/dL 05/18/22 05/18/22 Range/Units 11:42 16:21 RBC (3.80-5.40) m/uL Hgb (11.4-16.0) gm/dL Hct (34.0-46.0) % RDW (11.5-15.5) % POC Glucose (mg/dL) 162 H 150 H (70-110) mg/dL Assessment and Plan (1) Dysfunctional uterine bleeding Current Visit: Yes Status: Acute Priority: High Code(s): N93.8 - OTHER SPECIFIED ABNORMAL UTERINE AND VAGINAL BLEEDING SNOMED Code(s): 54796203309913 (2) Symptomatic anemia Current Visit: Yes Status: Acute Priority: High Code(s): D64.9 - ANEMIA, UNSPECIFIED SNOMED Code(s): 379643813 (3) Adenocarcinoma of the endometrium/uterus Current Visit: Yes Status: Chronic Priority: Medium Code(s): C54.1 - MALIGNANT NEOPLASM OF ENDOMETRIUM SNOMED Code(s): 610071026 Plan: Status post 2 L paracentesis. Symptomatically, patient is improved Pt is s/p 3 units PRBCs for recent heavy uterine bleeding. Vaginal bleeding has resolved.Hemoglobin stable. She has not required any additional units of blood. Pt has small PE diagnosed in January, been on eliquis for the same. This was held on admit. Discussed the case with Attending. Plan is to resume at 2.5 mg twice a day while patient is still in the hospital so that hemoglobin can be monitored. Patient agrees with the plan. Discussed with Paint Striping Machine Operator. There are AFC plans, this will allow pt to go to appt and have chemo. Treatment will help reduce ascites, BLE swelling, which will help her SOB being created by abd distension and pl effusion from ascitic fluid. Attests: I have seen and examined pt, performed H&P, developed impression and plan of care. Discussed with dictator. Agree with documentation, dictated as a scribe.
[2022-05-18 20:06] LABS: Glucose,Whole Blood 188 mg/dL (70-110)
[2022-05-18] MEDS: MELATONIN 3 MG TABLET PO SCH (20:44)
[2022-05-19 00:14] LABS: LDH, Body Fluid Source Paracentesis Fluid; T. Protein, Body Fluid Source Paracentesis Fluid; Total Protein, Body Fluid 2060 mg/dL
[2022-05-19 01:02] LABS: Appearance,BF Cloudy
[2022-05-19 05:46] LABS: Glucose,Whole Blood 161 mg/dL (70-110)
[2022-05-19] MEDS: INSULIN ASPART (NovoLOG) 100 UNIT/ML VIAL SQ SCH ×4 (06:32→20:16)
[2022-05-19] MEDS: carvediloL 6.25 MG TAB PO SCH ×2 (06:33→16:04)
[2022-05-19] MEDS: hydrALAZINE HCL 25 MG TAB PO SCH ×3 (08:20→23:19)
[2022-05-19] MEDS: PANTOPRAZOLE 40 MG/10 ML VIAL IVP SCH ×2 (08:20→20:05)
[2022-05-19] MEDS: CALCIUM CARB-VIT D 500 MG-5 MCG TAB PO SCH ×2 (08:21→20:05)
[2022-05-19] MEDS: allopurinoL 100 MG TAB PO SCH (08:21)
[2022-05-19] MEDS: FERROUS SULFATE 325 MG TAB PO SCH (08:21)
[2022-05-19] MEDS: FUROSEMIDE 40 MG TAB PO SCH ×2 (08:21→16:04)
[2022-05-19] MEDS: SODIUM BICARBONATE TAB 650 MG TAB PO SCH ×3 (08:21→20:06)
[2022-05-19] MEDS: ISOSORBIDE MONONITRATE ER 30 MG TAB.ER.24H PO SCH (08:21)
[2022-05-19] MEDS: APIXABAN 2.5 MG TABLET PO SCH (08:21)
[2022-05-19] MEDS: HYDROcodone/APAP 5-325MG 1 EACH TAB PO PRN ×2 (11:17→20:06)
[2022-05-19 11:23] LABS: Albumin 2.7 g/dL (3.5-5.0); Calcium 7.7 mg/dL (8.4-10.2); Potassium 4.7 mmol/L (3.5-5.1); Total Bilirubin 0.6 mg/dL (0.2-1.3); Total Protein 5.1 g/dL (6.3-8.2)
--- NOTE | 2022-05-19 11:33 | P.PN ---
Subjective Progress Note Date: 05/19/22 Patient is a 67-year-old female presenting to the emergency room from interventional radiology where she was at today for a therapeutic paracentesis for ascites secondary to her metastatic uterine cancer. There she was complaining of generalized weakness, fatigue and shortness of breath with exer tion which she felt was not related to her ascites interventional radiology to blood on her and found that her hemoglobin was 5.9 consequently she was sent to the emergency room. She states that she was having significant vaginal bleeding 3 days ago in which she passed large clots. She has not had any vaginal bleeding in the last 24 hours. She reports that she was evaluated at [facility] in regards to her cancer and was deemed not a surgical candidate due to severe comorbid conditions including severe pulmonary hypertension, CHF with preserved ejection fraction and chronic kidney disease. She is currently on Eliquis for a pulmonary emboli however the Eliquis was placed on hold 48 hours ago in preparation for her paracentesis. She was complaining of some abdominal pain and nausea without vomiting which she attributes to her ascites. She denied any chest pain, shortness of breath at rest, headache, dizziness, fevers or chills. She has chronic lower extremity edema which she states is unchanged and has dressings on. In addition to her past medical history as stated above she also has a past medical history significant for pericardial effusion chronic iron deficiency anemia, hypertension, hyperlipidemia and diabetes. 05/18 The patient is resting in bed. She reports 7/10 abdominal pain. She was encouraged to ask for her pain medication. She had a paracentesis today with 2.5L removed. The patient understands her Uterine cancer prognosis. She underwent radiation treatment and had a reoccurrence a short time afterward. She stated that she talked to her oncologist. She knows she is not a surgical candidate for a hysterectomy due to her cardiac issues. She would like to try i mmunotherapy since she was told it would help with her ascites, leg swelling, and pleural effusions. She states "I just want to feel better". Her goal is to become more active. She plans on moving to an assisted living where they prepare her meals and provide transportation. She would like to continue physical therapy through residential. Palliative care philosophies and services explained to the patient. She stated she is interested in it as outpatient to help prevent her from having to come back to the hospital so often. She could also use it as a bridge to hospice when she declined down the road. She would like to talk it over with her friends and is considering it. Objective - Vital Signs Vital signs: Vital Signs Temp 97.8 F 05/19/22 08:20 Pulse 71 05/19/22 08:20 Resp 19 05/19/22 08:20 BP 150/71 05/19/22 08:20 Pulse Ox 93 L 05/19/22 08:20 FiO2 Intake & Output 05/18/22 05/19/22 05/19/22 18:59 06:59 18:59 Intake Total 358 Balance 358 Intake: Oral 358 Other: Voiding Method External Catheter External Catheter External Catheter # Voids 1 1 # Bowel Movements 1 - Exam General: Well developed, well nourished. No acute distress. Chronically ill appearing HEENT: Head is atraumatic, normocephalic. Sclera are clear. CV: Heart regular in rate and rhythm positive S1 and S2. No clicks, rubs or murmurs. Peripheral pulses equal. 2/4 Lungs: Clear to auscultation bilaterally. No wheezes rales or rhonchi. Respirations even and nonlabored. Abdomen/GI: Soft. distended. No guarding, rigidity, or abdominal tenderness. Musculoskeletal/ Extremities: LEIGH, no joint deformity or swelling. No gross atrophy. + generalized weakness Vascular: +2 LE edema Skin: Pale,Warm, and dry Neurologic: Awake, alert and oriented times 3. CN II-XII grossly intact. No focal deficits. Psychiatric: Appropriate mood and affect. - Labs CBC & Chem 7: 05/18/22 04:20 05/19/22 10:39 Labs: Abnormal Lab Results - Last 24 Hours (Table) 05/18/22 05/18/22 05/18/22 Range/Units 11:42 16:21 20:01 POC Glucose (mg/dL) 162 H 150 H 188 H (70-110) mg/dL 05/19/22 Range/Units 05:44 POC Glucose (mg/dL) 161 H (70-110) mg/dL Microbiology - Last 24 Hours (Table) 05/18/22 14:00 Body Fluid Culture - Preliminary Paracentesis Fluid Assessment and Plan Assessment: Symptoms * Pain - 7/10 abdominal pain. Continue Tylenol, increased [place] frequency, discontinued morphine * Fatigue - Yes, tired and weak, Continue Feosol * SOB - Occasionally, Continue Lasix * Insomnia - Occasionally, continue Melatonin * N/V - Occasionally, Continue Zofran * Anxiety - No * Depression - No * Confusion - No * Agitation - No * Hallucinations - No * Appetite/weight loss - Good appetite, no recent weight loss * Dysphagia - No * Constipation - No, she has had recent diarrhea LBM 05/18 * Incontinence - External catheter * Itch - No * Cough - No Plan: Summary/Goals - The patient is sitting up in the chair. There are people from an assisted living here to evaluate her needs. The patient states she talked it over with her friend and has decided she would like to have outpatient palliative care follow her. manager produce aware. Recommendations - Assisted living with HHC, PT/OT, and Outpatient palliative care Advanced Directives - no Code Status - DNR Thank you for this consultation Isela Farias [facility] Palliative Care [facility] [id number] Email: [email or web address] Time with Patient: Less than 30
[2022-05-19 11:43] LABS: Glucose,Whole Blood 194 mg/dL (70-110)
--- NOTE | 2022-05-19 11:56 | P.PN ---
Subjective Progress Note Date: 05/19/22 (delayed charting seen at 0930) Patient is a 67-year-old female with metastatic uterine cancer and malignant ascites, diastolic CHF, hypertension, diabetes, and chronic kidney disease who presented to the ER with symptomatic acute blood loss anemia. Patient requires therapeutic paracentesis on a regular basis. When she had pre-paracentesis labs her hemoglobin was found to be 5.9 and she was directed to the ER. She had noticed some vaginal bleeding over the last several days. On arrival her hemoglobin was 5.7, creatinine 1.65 which is at her baseline, and the remainder of labs were consistent with her underlying problem. She is admitted for further monitoring. She was ordered-blood cells. Her hemoglobin was monitored. She received a total of 3 units of packed red blood cells. She was seen by SENIOR ARCHITECTURAL DESIGNER who recommended discontinuation of her anticoagulation as well as hospice care. She was seen by hematology/oncology stated she could still benefit from therapy and they recommended lower dose anticoagulation. Patient's hemoglobin stabilized. She was started back on eliquis 2.5mg daily. Patient seen and examined at bedside. She started having vaginal bleeding again today, She complains of abd pain, feeling like she needs to urinate and stool frequently, was constipated yesterday. Just over all feels miserable. We discussed palliative vs hospice and what it entails. She wants to try treatment but is already frustrated that she is doing poorly and has to move out of her house and is more dependent on people. General: nontoxic, no distress, appears at stated age Derm: warm, dry Head: atraumatic, normocephalic, symmetric Eyes: EOMI, no lid lag, anicteric sclera Mouth: no lip lesion, mucus membranes moist Cardiovascular: S1S2 reg, no murmur, positive posterior tibial pulse bilateral, Lungs: Decreased breath sounds bilateral, no rhonchi, no rales , no accessory muscle use Abdominal: soft, nontender to palpation, no guarding, no appreciable organomegaly Ext: no gross muscle atrophy, no edema, no contractures Neuro: CN II-XI grossly intact, no focal neuro deficits Psych: Alert, oriented, appropriate affect Assessment/Plan: Acute Blood Loss Anemia, symptomatic Metastatic uterine cancer with malignant ascites Postmenopausal bleeding -s/p transfusion 3 units of pRBCs -assistant to the dean 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 Arnav ferrera -Paracentesis completed 05/18/22 -Await CBC Non-anion gap metabolic acidosis - increase sodium bicarb - follow AM labs Diabetes Mellitus - SSI - hold metformin - tradjenta Weakness and debility -PT/OT -Plan is to go to assisted living on discharge. Working with case management. Chronic diastolic heart failure Hypertension Chronic kidney disease III at baseline Transitioned to inpatient care as she has failed observation, she has recurrent vaginal bleeding and is not stable for discharge. She may need recurrent blood transfusion. Joan Ferrera, d/w oncology possible need for IVC filter. Anticipated discharge place: assisted living Anticipated discharge time: 1- 2 days Active Medications Generic Name Dose Route Start Last Admin Trade Name Freq PRN Reason Stop Dose Admin Acetaminophen 650 mg 05/16/22 12:46 05/16/22 20:52 Acetaminophen Tab 325 Mg Tab PO 650 mg Q6HR PRN Administration Mild Pain or Fever > 100.5 Hydrocodone Bitart/Acetaminophen 1 each 05/19/22 11:24 Hydrocodone/Apap 5-325mg 1 Each Tab PO Q4HR PRN Pain Allopurinol 100 mg 05/17/22 09:00 05/19/22 08:21 Allopurinol 100 Mg Tab PO 100 mg DAILY LOVE Administration Calcium Carbonate 2 each 05/16/22 21:00 05/19/22 08:21 Calcium Carb-Vit D 500 Mg-5 Mcg Tab PO 2 each BID LOVE Administration Carvedilol 6.25 mg 05/16/22 17:30 05/19/22 06:33 Carvedilol 6.25 Mg Tab PO 6.25 mg BID-W/MEALS LOVE Administration Dextrose/Water 25 ml 05/16/22 16:04 Dextrose 50% Syringe 50 Ml IVP PER PROTOCOL PRN Hypoglycemia Protocol Dextrose/Water 50 ml 05/16/22 16:04 Dextrose 50% Syringe 50 Ml IVP PER PROTOCOL PRN Hypoglycemia Protocol Docusate Sodium 100 mg 05/16/22 13:59 Docusate 100 Mg Cap PO BID PRN Constipation Ferrous Sulfate 325 mg 05/17/22 09:00 05/19/22 08:21 Ferrous Sulfate 325 Mg Tab PO 325 mg DAILY LOVE Administration Furosemide 40 mg 05/16/22 16:00 05/19/22 08:21 Furosemide 40 Mg Tab PO 40 mg BID@0900,1600 LOVE Administration Hydralazine HCl 25 mg 05/16/22 16:00 05/19/22 08:20 Hydralazine Hcl 25 Mg Tab PO 25 mg Q8HR LOVE Administration Insulin Aspart 0 unit 05/16/22 17:30 05/19/22 06:32 Insulin Aspart (Novolog) 100 Unit/Ml Vial SQ 2 unit ACHS LOVE Administration Protocol Isosorbide Mononitrate 30 mg 05/17/22 09:00 05/19/22 08:21 Isosorbide Mononitrate Er 30 Mg Tab.Er.24h PO 30 mg DAILY LOVE Administration Loperamide HCl 2 mg 05/17/22 09:00 05/17/22 09:27 Loperamide 2 Mg Cap PO 2 mg QID PRN Administration Diarrhea Melatonin 3 mg 05/16/22 21:00 05/18/22 20:44 Melatonin 3 Mg Tablet PO 3 mg HS LOVE Administration Naloxone HCl 0.2 mg 05/16/22 12:46 Naloxone 0.4 Mg/Ml 1 Ml Vial IV Q2M PRN Opioid Reversal Nifedipine 60 mg 05/17/22 09:00 05/19/22 08:20 Nifedipine Xl 60 Mg Tab.Er.24 PO 60 mg DAILY LOVE Administration Ondansetron HCl 4 mg 05/18/22 09:44 Ondansetron 4 Mg/2 Ml Vial IVP Q6HR PRN Nausea And Vomiting Pantoprazole Sodium 40 mg 05/18/22 16:00 05/19/22 08:20 Pantoprazole 40 Mg/10 Ml Vial IVP 40 mg BID LOVE Administration Sodium Bicarbonate 650 mg 05/16/22 21:00 05/19/22 08:21 Sodium Bicarbonate Tab 650 Mg Tab PO 650 mg BID LOVE Administration Objective - Vital Signs Vital signs: Vital Signs Temp 97.8 F 05/19/22 08:20 Pulse 71 05/19/22 08:20 Resp 19 05/19/22 08:20 BP 150/71 05/19/22 08:20 Pulse Ox 93 L 05/19/22 08:20 FiO2 Intake & Output 05/18/22 05/19/22 05/19/22 18:59 06:59 18:59 Intake Total 358 Balance 358 Intake: Oral 358 Other: Voiding Method External Catheter External Catheter External Catheter # Voids 1 1 # Bowel Movements 1 - Labs CBC & Chem 7: 05/18/22 04:20 05/19/22 10:39 Labs: Abnormal Lab Results - Last 24 Hours (Table) 05/18/22 05/18/22 05/19/22 Range/Units 16:21 20:01 05:44 Chloride (98-107) mmol/L Carbon Dioxide (22-30) mmol/L BUN (7-17) mg/dL Creatinine (0.52-1.04) mg/dL Glucose (74-99) mg/dL POC Glucose (mg/dL) 150 H 188 H 161 H (70-110) mg/dL Calcium (8.4-10.2) mg/dL Total Protein (6.3-8.2) g/dL Albumin (3.5-5.0) g/dL 05/19/22 05/19/22 Range/Units 10:39 11:34 Chloride 116 H (98-107) mmol/L Carbon Dioxide 15 L (22-30) mmol/L BUN 57 H (7-17) mg/dL Creatinine 1.59 H (0.52-1.04) mg/dL Glucose 182 H (74-99) mg/dL POC Glucose (mg/dL) 194 H (70-110) mg/dL Calcium 7.7 L (8.4-10.2) mg/dL Total Protein 5.1 L (6.3-8.2) g/dL Albumin 2.7 L (3.5-5.0) g/dL Microbiology - Last 24 Hours (Table) 05/18/22 14:00 Body Fluid Culture - Preliminary Paracentesis Fluid
[2022-05-19 12:01] LABS: Anisocytosis Slight; HCT 27.1 % (34.0-46.0); HGB 8.4 gm/dL (11.4-16.0); Hypochromasia Moderate; MCH 30.3 pg (25.0-35.0); MCHC 31.1 g/dL (31.0-37.0); MCV 97.6 fL (80.0-100.0); Macrocytosis Slight; Mean Platelet Volume 9.2; Platelet Count 222 k/uL (150-450); Poikilocytosis Slight; RBC 2.78 m/uL (3.80-5.40); RDW 18.2 % (11.5-15.5); WBC 10.7 k/uL (3.8-10.6)
--- NOTE | 2022-05-19 12:41 | P.PN ---
Subjective Progress Note Date: 05/19/22 Principal diagnosis: Uterine carcinoma, vaginal bleeding In follow-up today patient is reporting generally not feeling good, she has started having vaginal bleeding again overnight/this AM, no other bleeding, she is reporting urinary freq, urgency, dribbling. Reporting abd pain, not well controlled on current analgesic regimen. Objective - Vital Signs Vital signs: Vital Signs Temp 97.8 F 05/19/22 08:20 Pulse 71 05/19/22 08:20 Resp 19 05/19/22 08:20 BP 150/71 05/19/22 08:20 Pulse Ox 93 L 05/19/22 08:20 FiO2 Intake & Output 05/18/22 05/19/22 05/19/22 18:59 06:59 18:59 Intake Total 358 Balance 358 Intake: Oral 358 Other: Voiding Method External Catheter External Catheter External Catheter # Voids 1 1 # Bowel Movements 1 - Constitutional General appearance: Present: cooperative, mild distress, morbidly obese - EENT Eyes: Present: anicteric sclerae, EOMI ENT: Present: hearing grossly normal - Respiratory Details: resp even and unlabored - Peripheral edema leg Peripheral Edema: bilateral: 1+ (BLE wrapped in tammie bandages for compression) - Neurologic Neurologic: Present: CNII-XII intact - Musculoskeletal Musculoskeletal: Present: generalized weakness - Psychiatric Psychiatric: Present: A&O x's 3, appropriate affect, intact judgment & insight - Labs CBC & Chem 7: 05/19/22 10:39 05/19/22 10:39 Labs: Abnormal Lab Results - Last 24 Hours (Table) 05/18/22 05/18/22 05/18/22 Range/Units 11:42 16:21 20:01 POC Glucose (mg/dL) 162 H 150 H 188 H (70-110) mg/dL 05/19/22 Range/Units 05:44 POC Glucose (mg/dL) 161 H (70-110) mg/dL Microbiology - Last 24 Hours (Table) 05/18/22 14:00 Body Fluid Culture - Preliminary Paracentesis Fluid Assessment and Plan (1) Dysfunctional uterine bleeding Current Visit: Yes Status: Acute Priority: High Code(s): N93.8 - OTHER SPECIFIED ABNORMAL UTERINE AND VAGINAL BLEEDING SNOMED Code(s): 13992550134187 (2) Symptomatic anemia Current Visit: Yes Status: Acute Priority: High Code(s): D64.9 - ANEMIA, UNSPECIFIED SNOMED Code(s): 836722726 (3) Adenocarcinoma of the endometrium/uterus Current Visit: Yes Status: Chronic Priority: Medium Code(s): C54.1 - MALIGNANT NEOPLASM OF ENDOMETRIUM SNOMED Code(s): 060496805 Plan: Status post 2 L paracentesis. Symptoms r/t ascites are stable. Pt is s/p 3 units PRBCs for recent heavy uterine bleeding. Vaginal bleeding resolved off of anticoagulation, which she is on for incidentally found PE in Jan. Hemoglobin remained stable. Unfortunately, she was re-challenged with prophylactic dose of eliquis yesterday and is already having recurrent bleeding. Case discussed with Attending. Stop anticoagulation. Patient was unable to complete duration of anticoagulation recommended for PE. Patient also has multiple provoking factors including active malignancy, decreased activity level. She is at an increased risk for PE. Recommendation is for IVC filter. We will consult Vascular to see the patient and discussed the same. Hemoglobin monitoring while inpt. Transfuse for Hgb < 7. Discussed with Power Driven Brush Maker. [facility] facility meeting with pt and friend today. Discussed with pt and friend her symptoms being related to active cancer. They asked about re-staging scans because she has had no treatment and her last scans were 2 mo ago. If new scans are ordered that is likely only going to further delay starting treatment. Explained that the Oncologist will re-stage after about 4 cycles of treatment. He will take into consideration possibility of changes in disease that may have occurred during delay from imaging to treatment. Treatment should help reduce ascites, BLE swelling, which will help her SOB created by abd distension and pl effusion from ascitic fluid. Pt repor ting feeling discouraged today. Encouraged pt to make daily notes on how she is feeling so that she has a more accurate record of how she is doing. She has agreed to palliative care which is a great resource. All pt and her friends questions were answered to the best of my ability and to their satisfaction. Pending ins approval to schedule treatment. Pt is aware of this. She will be contacted to start treatment. Time with Patient: Greater than 30
--- NOTE | 2022-05-19 15:17 | P.GSCN ---
History of Present Illness Consult date: 05/19/22 Reason for Consult: IVC filter placement Requesting physician: Paula Koehler History of present illness: This is a pleasant 67-year-old female with endometrial adenocarcinoma with a history of a recent pulmonary embolism diagnosed in January of this year. Patient has been on Eliquis, however she had significant amount of vaginal bleeding and had a hemoglobin of 5.7. Her Eliquis was stopped at that time and she was transfused 3 units of blood. Hemoglobin has been stable since thenand is 8.4. Oncology is following patient and recommends IVC filter placement due to patient's cancer history history of pulmonary embolism, sedentary lifestyle due to her cancer and history of recurrent bleeds. she currently states that her vaginal bleeding has slowed down significantly and she is only having small drops. She denies any chest pain, shortness of breath, pain in her legs. Her last venous duplex in March of this year was negative for DVTs bilaterally. Also speaking with oncology she was diagnosed with PE at [facility], at that time venous duplex again was negative for DVT. Review of Systems A 14 point review systems was completed all pertinent positives and negatives as stated in the HPI. Past Medical History Past Medical History: Cancer, Heart Failure, Diabetes Mellitus, Hyperlipidemia, Hypertension, Renal Disease Additional Past Medical History / Comment(s): anemia, pulmonary edema, gout, weakness, uterine Ca, ascites History of Any Multi-Drug Resistant Organisms: None Reported Past Surgical History: No Surgical Hx Reported Past Anesthesia/Blood Transfusion Reactions: No Reported Reaction Past Psychological History: Depression Smoking Status: Never smoker Past Alcohol Use History: None Reported Past Drug Use History: None Reported - Past Family History Father Family Medical History: Myocardial Infarction (CT) Additional Family Medical History / Comment(s): father of CT at 58 years ol d Mother Family Medical History: No Reported History Additional Family Medical History / Comment(s): mother of old age at 95 years old Medications and Allergies Home Medications Medication Instructions Recorded Confirmed Type allopurinoL [Zyloprim] 100 mg PO DAILY 12/16/20 05/16/22 History Linagliptin [Tradjenta] 5 mg PO DAILY 08/02/21 05/16/22 History Ferrous Sulfate [Iron (65 MG 325 mg PO DAILY 10/11/21 05/16/22 History Elemental)] Insulin Lispro [humaLOG Kwikpen] See Protocol SQ ACHS PRN 12/10/21 05/16/22 History Apixaban [Eliquis] 5 mg PO BID 30 Days #60 tab 12/20/21 05/16/22 Rx Cholestyramine/Aspartame 4 gm PO DAILY PRN 03/07/22 05/16/22 History [Cholestyramine Light Packet] Acetaminophen Tab [Tylenol] 650 mg PO Q6HR PRN tab 03/14/22 05/16/22 Rx Docusate [Colace] 100 mg PO BID PRN cap 03/14/22 05/16/22 Rx Furosemide [Lasix] 40 mg PO BID 04/11/22 05/16/22 History Isosorbide Mononitrate ER [Imdur] 30 mg PO DAILY 04/11/22 05/16/22 History NIFEdipine XL [Procardia XL] 60 mg PO DAILY 04/11/22 05/16/22 History Sodium Bicarbonate Tab 650 mg PO BID 04/11/22 05/16/22 History carvediloL [Coreg] 6.25 mg PO BID 04/11/22 05/16/22 History HYDROcodone/APAP 5-325MG [[place] 1 tab PO TID PRN #9 tab 04/13/22 05/16/22 Rx 5-325] Mckay-Gest 500mg 2 tab PO Q4H PRN 05/16/22 05/16/22 History Calcium Carbonate/Vitamin D3 2 tab PO BID 05/16/22 05/16/22 History [Oyster Shell 250 mg-D3 3.12 mcg (125 Iu)] Melatonin 3 mg PO HS 05/16/22 05/16/22 History hydrALAZINE HCL [Apresoline] 25 mg PO Q8HR 05/16/22 05/16/22 History Allergies Allergy/AdvReac Type Severity Reaction Status Date / Time No Known Allergies Allergy Verified 05/16/22 12:00 Surgical - Exam Vital Signs Temp Pulse Resp BP Pulse Ox 98.1 F 62 20 160/69 97 05/16/22 10:47 05/16/22 10:47 05/16/22 10:47 05/16/22 10:47 05/16/22 10:47 General appearance: The patient is alert, oriented, appears in no acute distress. HET: Head is normocephalic and atraumatic. Pupils are equal and reactive. Neck: Supple without lymphadenopathy. Trachea midline. Heart: Regular. Lungs: Equal expansion, normal respiratory effort. Abdomen: Soft, nontender, nondistended. Extremities: Normal skin color and turgor. No cyanosis, rash, ulceration, clubbing, or edema. Neurological: No focal deficits. alert and oriented 3. Results - Labs 05/19/22 10:39 05/19/22 10:39 Abnormal Lab Results - Last 24 Hours (Table) 05/18/22 05/18/22 05/19/22 Range/Units 16:21 20:01 05:44 WBC (3.8-10.6) k/uL RBC (3.80-5.40) m/uL Hgb (11.4-16.0) gm/dL Hct (34.0-46.0) % RDW (11.5-15.5) % Chloride (98-107) mmol/L Carbon Dioxide (22-30) mmol/L BUN (7-17) mg/dL Creatinine (0.52-1.04) mg/dL Glucose (74-99) mg/dL POC Glucose (mg/dL) 150 H 188 H 161 H (70-110) mg/dL Calcium (8.4-10.2) mg/dL Total Protein (6.3-8.2) g/dL Albumin (3.5-5.0) g/dL 05/19/22 05/19/22 05/19/22 Range/Units 10:39 10:39 11:34 WBC 10.7 H (3.8-10.6) k/uL RBC 2.78 L (3.80-5.40) m/uL Hgb 8.4 L (11.4-16.0) gm/dL Hct 27.1 L (34.0-46.0) % RDW 18.2 H (11.5-15.5) % Chloride 116 H (98-107) mmol/L Carbon Dioxide 15 L (22-30) mmol/L BUN 57 H (7-17) mg/dL Creatinine 1.59 H (0.52-1.04) mg/dL Glucose 182 H (74-99) mg/dL POC Glucose (mg/dL) 194 H (70-110) mg/dL Calcium 7.7 L (8.4-10.2) mg/dL Total Protein 5.1 L (6.3-8.2) g/dL Albumin 2.7 L (3.5-5.0) g/dL Microbiology - Last 24 Hours (Table) 05/18/22 14:00 Body Fluid Culture - Preliminary Paracentesis Fluid Diabetes panel 05/19/22 Range/Units 10:39 Sodium 138 (137-145) mmol/L Potassium 4.7 (3.5-5.1) mmol/L Chloride 116 H (98-107) mmol/L Carbon Dioxide 15 L (22-30) mmol/L BUN 57 H (7-17) mg/dL Creatinine 1.59 H (0.52-1.04) mg/dL Glucose 182 H (74-99) mg/dL Calcium 7.7 L (8.4-10.2) mg/dL AST 16 (14-36) U/L ALT 10 (4-34) U/L Alkaline Phosphatase 112 (38-126) U/L Total Protein 5.1 L (6.3-8.2) g/dL Albumin 2.7 L (3.5-5.0) g/dL Calcium panel 05/19/22 Range/Units 10:39 Calcium 7.7 L (8.4-10.2) mg/dL Albumin 2.7 L (3.5-5.0) g/dL Pituitary panel 05/19/22 Range/Units 10:39 Sodium 138 (137-145) mmol/L Potassium 4.7 (3.5-5.1) mmol/L Chloride 116 H (98-107) mmol/L Carbon Dioxide 15 L (22-30) mmol/L BUN 57 H (7-17) mg/dL Creatinine 1.59 H (0.52-1.04) mg/dL Glucose 182 H (74-99) mg/dL Calcium 7.7 L (8.4-10.2) mg/dL Adrenal panel 05/19/22 Range/Units 10:39 Sodium 138 (137-145) mmol/L Potassium 4.7 (3.5-5.1) mmol/L Chloride 116 H (98-107) mmol/L Carbon Dioxide 15 L (22-30) mmol/L BUN 57 H (7-17) mg/dL Creatinine 1.59 H (0.52-1.04) mg/dL Glucose 182 H (74-99) mg/dL Calcium 7.7 L (8.4-10.2) mg/dL Total Bilirubin 0.6 (0.2-1.3) mg/dL AST 16 (14-36) U/L ALT 10 (4-34) U/L Alkaline Phosphatase 112 (38-126) U/L Total Protein 5.1 L (6.3-8.2) g/dL Albumin 2.7 L (3.5-5.0) g/dL Assessment and Plan Assessment: 1. Vaginal bleeding 2. Acute blood loss anemia secondary to above 3. Pulmonary embolism on Eliquis 4. Endometrial adenocarcinoma Plan: 1. Continue to hold anticoagulation 2. Nothing by mouth after midnight 3. Discussion had with patient regarding procedure for IVC filter placement recommended by oncology due to patient's recurrentanemia from acute blood loss and need for anticoagulation for recent pulmonary embolism and multiple predisposing factors for increased risk for DVT/PE. Patient at this time states she is not interested in undergoing the procedure and would like to think about it more. We verbalized understanding and discussed with her we will follow-up tomorrow. Thank you for this consultation, we will continue to follow. The impression and plan of care has been dictated as directed. Dr. Silver I performed a history and examination of this patient, discussed the same with the dictator. I agree with the dictator's note ,documented as a scribe. Any additional findings or plans will be noted.
[2022-05-19 16:38] LABS: Glucose,Whole Blood 182 mg/dL (70-110)
[2022-05-19 18:57] LABS: Appearance,Urine Cloudy (Clear); Bacteria,Urine Many /hpf; Bilirubin,Urine Negative (Negative); Blood,Urine Large (Negative); Color,Urine Yellow; Glucose,Urine (UA) Trace (Negative); Hyaline Casts,Urine 59 /lpf (0-2); Ketones,Urine Negative (Negative); Leukocyte Esterase,Urine Large (Negative); Mucus,Urine Rare /hpf; Nitrite,Urine Negative (Negative); PH, Urine 5.5 (5.0-8.0); Protein,Urine 2+ (Negative); RBC,Urine >182 /hpf (0-5); Specific Gravity,Urine 1.013 (1.001-1.035); Squamous Epithelial Cell,Urine 2 /hpf (0-4); Urobilinogen,Urine <2.0 mg/dL (<2.0); WBC,Urine >182 /hpf (0-5)
[2022-05-19 20:02] LABS: Glucose,Whole Blood 196 mg/dL (70-110)
[2022-05-19] MEDS: MELATONIN 3 MG TABLET PO SCH (20:05)
[2022-05-20 05:57] LABS: Glucose,Whole Blood 152 mg/dL (70-110)
[2022-05-20] MEDS: INSULIN ASPART (NovoLOG) 100 UNIT/ML VIAL SQ SCH ×4 (06:12→21:32)
[2022-05-20] MEDS: carvediloL 6.25 MG TAB PO SCH ×2 (06:13→16:30)
[2022-05-20] MEDS: HYDROcodone/APAP 5-325MG 1 EACH TAB PO PRN ×3 (08:06→21:30)
[2022-05-20] MEDS: PANTOPRAZOLE 40 MG TABLET PO SCH ×2 (08:07→21:30)
[2022-05-20] MEDS: FUROSEMIDE 40 MG TAB PO SCH ×2 (08:07→16:30)
[2022-05-20] MEDS: hydrALAZINE HCL 25 MG TAB PO SCH ×3 (08:07→23:38)
[2022-05-20] MEDS: allopurinoL 100 MG TAB PO SCH (08:08)
[2022-05-20] MEDS: CALCIUM CARB-VIT D 500 MG-5 MCG TAB PO SCH ×2 (08:08→21:30)
[2022-05-20] MEDS: SODIUM BICARBONATE TAB 650 MG TAB PO SCH ×3 (08:08→21:32)
[2022-05-20] MEDS: ISOSORBIDE MONONITRATE ER 30 MG TAB.ER.24H PO SCH (08:08)
[2022-05-20] MEDS: FERROUS SULFATE 325 MG TAB PO SCH (08:08)
[2022-05-20] MEDS ORDERED: PANTOPRAZOLE 40 MG/10 ML VIAL IVP SCH (09:00)
[2022-05-20 09:07] LABS: Anisocytosis Slight; HCT 25.1 % (34.0-46.0); HGB 7.4 gm/dL (11.4-16.0); Hypochromasia Marked; MCH 29.8 pg (25.0-35.0); MCHC 29.4 g/dL (31.0-37.0); MCV 101.3 fL (80.0-100.0); Macrocytosis Moderate; Mean Platelet Volume 8.1; Platelet Count 197 k/uL (150-450); RBC 2.48 m/uL (3.80-5.40); RDW 18.8 % (11.5-15.5); WBC 6.4 k/uL (3.8-10.6)
[2022-05-20 09:25] LABS: Albumin 2.7 g/dL (3.5-5.0); Calcium 7.7 mg/dL (8.4-10.2); Potassium 5.1 mmol/L (3.5-5.1); Total Bilirubin 0.4 mg/dL (0.2-1.3); Total Protein 5.1 g/dL (6.3-8.2)
--- NOTE | 2022-05-20 11:03 | P.PN ---
Subjective Progress Note Date: 05/20/22 Patient is amenable to IVC filter placement. She lost access via IV overnight. Otherwise, no new complaints. Pain is controlled, breathing is controlled. Gen: awake, alert HEENT: normocephalic, atraumatic, good hearing acuity, moist mucous membranes Resp: good air exchange, breathing comfortably with no accessory muscle use CVS: good distal perfusion x 4, GI: soft, distended, nontender to palpation : no SPT, no CVAT, gonsalez catheter not present MSK: Bilateral pitting edema, no clubbing Neuro: non-focal, moving all extremities Psych: cooperative, euthymic mood Assessment/plan: Acute Blood Loss Anemia, symptomatic Metastatic uterine cancer with malignant ascites Postmenopausal bleeding -s/p transfusion 3 units of pRBCs -inkjet operator 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 Arnav ferrera -Vascular surgery consulted for IVC filter placement -Paracentesis completed 05/18/22 -Await CBC Non-anion gap metabolic acidosis - increase sodium bicarb - follow AM labs Diabetes Mellitus - SSI - hold metformin - tradjenta Weakness and debility -PT/OT -Plan is to go to assisted living on discharge. Working with case management. Chronic diastolic heart failure Hypertension Chronic kidney disease III at baseline Transitioned to inpatient care as she has failed observation, she has recurrent vaginal bleeding and is not stable for discharge. She may need recurrent blood transfusion. Stopped Shawna. Anticipated discharge place: assisted living Anticipated discharge time: 1- 2 days Objective - Vital Signs Vital signs: Vital Signs Temp 98.3 F 05/20/22 07:55 Pulse 72 05/20/22 07:55 Resp 18 05/20/22 07:55 BP 153/70 05/20/22 07:55 Pulse Ox 96 05/20/22 09:00 FiO2 Intake & Output 05/19/22 05/20/22 05/20/22 18:59 06:59 18:59 Intake Total 480 Balance 480 Weight 110.3 kg Intake: Oral 480 Other: Voiding Method External Catheter Toilet Toilet # Voids 1 1 1 # Bowel Movements 1 - Labs CBC & Chem 7: 05/20/22 07:59 05/20/22 07:59 Labs: Abnormal Lab Results - Last 24 Hours (Table) 05/19/22 05/19/22 05/19/22 Range/Units 10:39 10:39 11:34 WBC 10.7 H (3.8-10.6) k/uL RBC 2.78 L (3.80-5.40) m/uL Hgb 8.4 L (11.4-16.0) gm/dL Hct 27.1 L (34.0-46.0) % MCV (80.0-100.0) fL MCHC (31.0-37.0) g/dL RDW 18.2 H (11.5-15.5) % Sodium (137-145) mmol/L Chloride 116 H (98-107) mmol/L Carbon Dioxide 15 L (22-30) mmol/L BUN 57 H (7-17) mg/dL Creatinine 1.59 H (0.52-1.04) mg/dL Glucose 182 H (74-99) mg/dL POC Glucose (mg/dL) 194 H (70-110) mg/dL Calcium 7.7 L (8.4-10.2) mg/dL Total Protein 5.1 L (6.3-8.2) g/dL Albumin 2.7 L (3.5-5.0) g/dL Urine Appearance (Clear) Urine Protein (Negative) Urine Glucose (UA) (Negative) Urine Blood (Negative) Ur Leukocyte Esterase (Negative) Urine RBC (0-5) /hpf Urine WBC (0-5) /hpf Urine WBC Clumps (None) /hpf Urine Bacteria (None) /hpf Hyaline Casts (0-2) /lpf Urine Mucus (None) /hpf 05/19/22 05/19/22 05/19/22 Range/Units 16:36 18:40 20:00 WBC (3.8-10.6) k/uL RBC (3.80-5.40) m/uL Hgb (11.4-16.0) gm/dL Hct (34.0-46.0) % MCV (80.0-100.0) fL MCHC (31.0-37.0) g/dL RDW (11.5-15.5) % Sodium (137-145) mmol/L Chloride (98-107) mmol/L Carbon Dioxide (22-30) mmol/L BUN (7-17) mg/dL Creatinine (0.52-1.04) mg/dL Glucose (74-99) mg/dL POC Glucose (mg/dL) 182 H 196 H (70-110) mg/dL Calcium (8.4-10.2) mg/dL Total Protein (6.3-8.2) g/dL Albumin (3.5-5.0) g/dL Urine Appearance Cloudy H (Clear) Urine Protein 2+ H (Negative) Urine Glucose (UA) Trace H (Negative) Urine Blood Large H (Negative) Ur Leukocyte Esterase Large H (Negative) Urine RBC >182 H (0-5) /hpf Urine WBC >182 H (0-5) /hpf Urine WBC Clumps Many H (None) /hpf Urine Bacteria Many H (None) /hpf Hyaline Casts 59 H (0-2) /lpf Urine Mucus Rare H (None) /hpf 05/20/22 05/20/22 05/20/22 Range/Units 05:55 07:59 07:59 WBC (3.8-10.6) k/uL RBC 2.48 L (3.80-5.40) m/uL Hgb 7.4 L (11.4-16.0) gm/dL Hct 25.1 L (34.0-46.0) % MCV 101.3 H (80.0-100.0) fL MCHC 29.4 L (31.0-37.0) g/dL RDW 18.8 H (11.5-15.5) % Sodium 136 L (137-145) mmol/L Chloride 114 H (98-107) mmol/L Carbon Dioxide 16 L (22-30) mmol/L BUN 58 H (7-17) mg/dL Creatinine 1.59 H (0.52-1.04) mg/dL Glucose 135 H (74-99) mg/dL POC Glucose (mg/dL) 152 H (70-110) mg/dL Calcium 7.7 L (8.4-10.2) mg/dL Total Protein 5.1 L (6.3-8.2) g/dL Albumin 2.7 L (3.5-5.0) g/dL Urine Appearance (Clear) Urine Protein (Negative) Urine Glucose (UA) (Negative) Urine Blood (Negative) Ur Leukocyte Esterase (Negative) Urine RBC (0-5) /hpf Urine WBC (0-5) /hpf Urine WBC Clumps (None) /hpf Urine Bacteria (None) /hpf Hyaline Casts (0-2) /lpf Urine Mucus (None) /hpf Microbiology - Last 24 Hours (Table) 05/18/22 14:00 Gram Stain - Preliminary Paracentesis Fluid Body Fluid Culture - Preliminary 05/19/22 18:40 Urine Culture - Preliminary Urine,Voided
[2022-05-20 11:30] LABS: Glucose,Whole Blood 160 mg/dL (70-110)
[2022-05-20] MEDS ORDERED: MIDAZOLAM 2 MG/2 ML VIAL IV ONE (13:07)
[2022-05-20] MEDS ORDERED: LIDOCAINE 1% INJ 10MG/ML (30 ML VIAL-PF) SQ ONE (13:14)
[2022-05-20] MEDS ORDERED: SODIUM CHLORIDE 0.9% 1,000 ML IV ONE (13:20)
[2022-05-20] MEDS ORDERED: IOPAMIDOL-250 100ML BTL IV ONE (13:24)
--- NOTE | 2022-05-20 13:32 | P.OP ---
Date of Procedure: 05/20/22 Preoperative Diagnosis: Metastatic endometrial adenocarcinoma, pulmonary embolism, acute blood loss anemia unable to anticoagulate Postoperative Diagnosis: Same Procedure(s) Performed: #1 ultrasound-guided right common femoral vein access #2 selective right iliofemoral, inferior vena cava venogram #3 percutaneous placement of IVC filter #4 conscious sedation 13 minutes Anesthesia: local Surgeon: Keon Silver Estimated Blood Loss (ml): 2 Pathology: none sent Condition: stable Disposition: floor Indications for Procedure: 67-year-old female history of metastatic adenocarcinoma, pulmonary embolism who is currently being treated with oral anticoagulation who presented to the hospital due to acute blood loss anemia, vaginal bleeding with hemoglobin of 5. Due to this she is unable to have anticoagulation and request for IVC filter was placed. She presents today for filter placement. Description of Procedure: After written and informed consent was obtained the patient and all risks benefits and complications were described the patient was brought to the Ammonia Solution Preparer and laid in a supine position. The area of the groins were prepped and draped in usual sterile fashion. Utilizing ultrasound the right femoral vein was located and shown to be patent and compressible without any visible thrombus. Utilizing ultrasound and Seldinger technique the vein was accessed and a 035 guidewire was placed followed by a 6-Setswana sheath. Catheter was then placed within the inferior vena cava and IVC venogram was obtained demonstrating visualization of the renal veins and IVC measured 25 mm at the inferior renal aspect. A [place] filter was then chosen to be placed and the deployment sheath was guided over the guidewire after removal of the 6-Setswana sheath. The filter was then placed just beneath the renal veins and deployed in normal fash ion. Once deployed final venogram was obtained demonstrating good placement of the filter with mild tilting to the left.. All guidewires and catheters were then removed and pressure was held for hemostasis. The area was cleansed and dressings were placed. Patient tolerated procedure well was sent back to the room for recovery.
[2022-05-20 15:25] LABS: HGB 8.7 gm/dL (11.4-16.0)
[2022-05-20 16:18] LABS: Glucose,Whole Blood 184 mg/dL (70-110)
[2022-05-20 20:15] LABS: Glucose,Whole Blood 211 mg/dL (70-110)
[2022-05-20] MEDS: MIRTAZAPINE 15 MG TAB PO SCH (21:31)
[2022-05-20] MEDS: MELATONIN 3 MG TABLET PO SCH (21:32)
[2022-05-21] MEDS: HYDROcodone/APAP 5-325MG 1 EACH TAB PO PRN ×3 (02:53→20:08)
[2022-05-21 05:07] VITALS: RESP 18
[2022-05-21 06:18] LABS: Glucose,Whole Blood 110 mg/dL (70-110)
[2022-05-21] MEDS: carvediloL 6.25 MG TAB PO SCH ×2 (06:21→16:00)
[2022-05-21] MEDS: INSULIN ASPART (NovoLOG) 100 UNIT/ML VIAL SQ SCH ×4 (06:21→21:46)
[2022-05-21] MEDS: CALCIUM CARB-VIT D 500 MG-5 MCG TAB PO SCH ×2 (07:35→20:08)
[2022-05-21] MEDS: PANTOPRAZOLE 40 MG TABLET PO SCH ×2 (07:35→20:08)
[2022-05-21] MEDS: ISOSORBIDE MONONITRATE ER 30 MG TAB.ER.24H PO SCH (07:35)
[2022-05-21] MEDS: FERROUS SULFATE 325 MG TAB PO SCH (07:35)
[2022-05-21] MEDS: FUROSEMIDE 40 MG TAB PO SCH ×2 (07:35→16:00)
[2022-05-21] MEDS: allopurinoL 100 MG TAB PO SCH (07:35)
[2022-05-21] MEDS: SODIUM BICARBONATE TAB 650 MG TAB PO SCH ×3 (07:35→21:46)
[2022-05-21] MEDS: hydrALAZINE HCL 25 MG TAB PO SCH ×3 (07:36→23:46)
[2022-05-21 12:16] LABS: Glucose,Whole Blood 146 mg/dL (70-110)
--- NOTE | 2022-05-21 12:55 | P.PN ---
Subjective Progress Note Date: 05/21/22 Patient has IVC filter. She is asking to discuss hospice today. 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 Arnav ferrera -Vascular surgery consulted for IVC filter placement -Paracentesis completed 05/18/22 -Await CBC Non-anion gap metabolic acidosis - increase sodium bicarb - follow AM labs Diabetes Mellitus - SSI - hold metformin - tradjenta Weakness and debility -PT/OT -Plan is to go to assisted living on discharge. Working with case management. Chronic diastolic heart failure Hypertension Chronic kidney disease III at baseline Transitioned to inpatient care as she has failed observation, she has recurrent vaginal bleeding and is not stable for discharge. She may need recurrent blood transfusion. Stopped Shawna. Anticipated discharge place: assisted living Anticipated discharge time: 1- 2 days Objective - Vital Signs Vital signs: Vital Signs Temp 98.4 F 05/21/22 07:31 Pulse 66 05/21/22 11:10 Resp 18 05/21/22 11:10 BP 148/67 05/21/22 11:10 Pulse Ox 92 L 05/21/22 11:10 FiO2 Intake & Output 05/20/22 05/21/22 05/21/22 18:59 06:59 18:59 Intake Total 760 120 Balance 760 120 Weight 111.3 kg Intake: IV 100 Oral 660 120 Other: Voiding Method Toilet Toilet Toilet # Voids 1 2 2 # Bowel Movements 0 - Labs CBC & Chem 7: 05/20/22 07:59 05/20/22 07:59 Labs: Abnormal Lab Results - Last 24 Hours (Table) 05/17/22 05/20/22 05/20/22 Range/Units 07:55 16:16 20:13 Hgb 8.7 L D (11.4-16.0) gm/dL POC Glucose (mg/dL) 184 H 211 H (70-110) mg/dL 05/21/22 Range/Units 12:15 Hgb (11.4-16.0) gm/dL POC Glucose (mg/dL) 146 H (70-110) mg/dL Microbiology - Last 24 Hours (Table) 05/19/22 18:40 Urine Culture - Preliminary Urine,Voided Gram Neg Bacilli 05/18/22 14:00 Gram Stain - Preliminary Paracentesis Fluid Body Fluid Culture - Preliminary
[2022-05-21 16:51] LABS: Glucose,Whole Blood 197 mg/dL (70-110)
[2022-05-21] MEDS: MELATONIN 3 MG TABLET PO SCH (20:08)
[2022-05-21] MEDS: MIRTAZAPINE 15 MG TAB PO SCH (20:08)
[2022-05-21 20:41] LABS: Glucose,Whole Blood 200 mg/dL (70-110)
[2022-05-22 06:16] LABS: Glucose,Whole Blood 134 mg/dL (70-110)
[2022-05-22] MEDS: INSULIN ASPART (NovoLOG) 100 UNIT/ML VIAL SQ SCH ×2 (06:35→12:18)
[2022-05-22] MEDS: carvediloL 6.25 MG TAB PO SCH (06:42)
--- NOTE | 2022-05-22 08:07 | IR ---
EXAMINATION TYPE: IR IVC filter placement DATE OF EXAM: 05/20/2022 COMPARISON: NONE HISTORY: Fluoroscopy time. Fluoroscopy was provided to the referring clinician.
[2022-05-22 08:24] VITALS: TEMP 97.9
[2022-05-22] MEDS: ISOSORBIDE MONONITRATE ER 30 MG TAB.ER.24H PO SCH (08:24)
[2022-05-22] MEDS: allopurinoL 100 MG TAB PO SCH (08:24)
[2022-05-22] MEDS: hydrALAZINE HCL 25 MG TAB PO SCH ×2 (08:25→15:28)
[2022-05-22] MEDS: SODIUM BICARBONATE TAB 650 MG TAB PO SCH ×2 (08:25→15:28)
[2022-05-22] MEDS: FUROSEMIDE 40 MG TAB PO SCH ×2 (08:25→15:28)
[2022-05-22] MEDS: FERROUS SULFATE 325 MG TAB PO SCH (08:25)
[2022-05-22] MEDS: CALCIUM CARB-VIT D 500 MG-5 MCG TAB PO SCH (08:25)
[2022-05-22] MEDS: PANTOPRAZOLE 40 MG TABLET PO SCH (08:25)
[2022-05-22] MEDS: HYDROcodone/APAP 5-325MG 1 EACH TAB PO PRN (08:30)
[2022-05-22 10:17] VITALS: BMI 37.9
[2022-05-22 11:44] LABS: Glucose,Whole Blood 237 mg/dL (70-110)
--- NOTE | 2022-05-22 12:07 | P.PN ---
Subjective Progress Note Date: 05/22/22 Principal diagnosis: Vaginal bleeding, poor candidate for anticoagulation, history of PE Patient was seen and examined today for follow-up. She underwent IVC filter placement in the right femoral vein on 05/20/2022. She denies any bleeding or pain at the site. No hematoma. Objective - Vital Signs Vital signs: Vital Signs Temp 97.9 F 05/22/22 08:22 Pulse 69 05/22/22 09:49 Resp 18 05/22/22 09:49 BP 148/71 05/22/22 08:22 Pulse Ox 96 05/22/22 08:50 FiO2 Intake & Output 05/21/22 05/22/22 05/22/22 18:59 06:59 18:59 Intake Total 240 118 Output Total 400 Balance 240 -282 Weight 109.8 kg Intake: Oral 240 118 Output: Urine 400 Other: Voiding Method Toilet Toilet Toilet # Voids 2 2 # Bowel Movements 0 - Exam General appearance: The patient is alert, oriented, appears in no acute d istress. HET: Head is normocephalic and atraumatic. Pupils are equal and reactive. Abdomen: Soft, nontender, nondistended. Extremities: Normal skin color and turgor. Right groin access site without any hematoma or bleeding. Neurological: No focal deficits. Alert and oriented 3. - Labs CBC & Chem 7: 05/20/22 07:59 05/20/22 07:59 Labs: Abnormal Lab Results - Last 24 Hours (Table) 05/21/22 05/21/22 05/21/22 Range/Units 12:15 16:50 20:39 POC Glucose (mg/dL) 146 H 197 H 200 H (70-110) mg/dL 05/22/22 Range/Units 06:15 POC Glucose (mg/dL) 134 H (70-110) mg/dL Microbiology - Last 24 Hours (Table) 05/19/22 18:40 Urine Culture - Final Urine,Voided Escherichia coli 05/18/22 14:00 Gram Stain - Preliminary Paracentesis Fluid Body Fluid Culture - Preliminary Assessment and Plan Assessment: 1. Vaginal bleeding poor candidate for anticoagulation, status post IVC filter placement 2. Acute blood loss anemia secondary to above 3. Pulmonary embolism 4. Endometrial adenocarcinoma Plan: IVC filter placed, anticoagulation has been discontinued. Patient without any evidence of hematoma or bleeding in the right access site. No further indication for any vascular surgical intervention. We will sign off at this time. The impression and plan of care has been dictated as directed. Dr. Eubanks I performed a history and examination of this patient, discussed the same with the dictator. I agree with the dictator's note ,documented as a scribe. Any additional findings or plans will be noted.
--- NOTE | 2022-05-22 12:41 | P.DS ---
Providers Date of admission: 05/18/22 19:07 Expected date of discharge: 05/22/22 Attending physician: Didier Schuler MD Consults: 05/16/22 14:02 Consult Physician Routine Consulting Provider: Flower José Consult Reason/Comments: uterine cancer Do you want consulting provider notified?: Yes 05/16/22 16:05 Consult Physician Routine Consulting Provider: Stuart Squires Consult Reason/Comments: uterine CA and known patient Do you want consulting provider notified?: Yes 05/17/22 13:37 Consult to Palliative Care Routine Consulting Provider: Isela Farias Consult Reason/Comments: stage 4 uterine cancer, patient would like info about palliative care Do you want consulting provider notified?: Yes 05/19/22 12:41 Consult Physician Routine Consulting Provider: Cristal Gonsalez Consult Reason/Comments: IVC filter, bleed on eliquis for PE, persistent provoking factors Do you want consulting provider notified?: Yes Primary care physician: [facility] Course: Acute blood loss anemia, symptomatic Metastatic uterine cancer with malignant ascites Postmenopausal bleeding Non-anion gap metabolic acidosis Chronic diastolic heart failure Hypertension Diabetes - will hold oral antidiabetic medications, start on SSI Chronic kidney disease Patient is a 67-year-old female with history of uterine cancer with malignant ascites, diastolic CHF, hypertension, diabetes, CKD presenting for symptomatic acute blood loss anemia. She presented to the emergency for paracentesis, was found to have hemoglobin of 5.9. In the ED, her vital signs were within normal limits. Her lab work was significant for hemoglobin of 5.7, and non-anion gap metabolic acidosis. She was given blood products and diuretics. Patient improved with these measures, however, given recent decline in medical status, she requested consultation with palliative care. Oncology was consulted as well, who recommended that patient not be resumed on Apixiban, but instead receive IVC filter. Patient underwent IVC filter placement on 05/21. Regarding her goals of care, she discussed with both palliative care as well as hospice, and elected to go to assisted living facility with palliative care as an outpatient. I spent 35 minutes coordinating this discharge, discharge date 05/22 Gen: awake, alert HEENT: normocephalic, atraumatic, good hearing acuity, moist mucous membranes Resp: good air exchange, breathing comfortably with no accessory muscle use CVS: good distal perfusion x 4, GI: soft, NTTP, ND : no SPT, no CVAT, gonsalez catheter not present MSK: no pitting edema, no clubbing Neuro: non-focal, moving all extremities Psych: cooperative, euthymic mood Patient Condition at Discharge: Fair Plan - Discharge Summary Discharge Rx Participant: Yes New Discharge Prescriptions: New Loperamide [Imodium] 2 mg PO QID PRN #30 cap PRN Reason: Diarrhea Mirtazapine [Remeron] 7.5 mg PO HS #15 tab Pantoprazole [Protonix] 40 mg PO BID #60 tab Continue Linagliptin [Tradjenta] 5 mg PO DAILY Insulin Lispro [humaLOG Kwikpen] See Protocol SQ ACHS PRN PRN Reason: Blood Sugar - High Apixaban [Eliquis] 5 mg PO BID 30 Days #60 tab Docusate [Colace] 100 mg PO BID PRN cap PRN Reason: Constipation Acetaminophen Tab [Tylenol] 650 mg PO Q6HR PRN tab PRN Reason: Mild Pain Or Fever > 100.5 Furosemide [Lasix] 40 mg PO BID Isosorbide Mononitrate ER [Imdur] 30 mg PO DAILY Calcium Carbonate/Vitamin D3 [[place]yster [place] 250 mg-D3 3.12 mcg (125 Iu)] 2 tab PO BID hydrALAZINE HCL [Apresoline] 25 mg PO Q8HR allopurinoL [Zyloprim] 100 mg PO DAILY Ferrous Sulfate [Iron (65 MG Elemental)] 325 mg PO DAILY Cholestyramine/Aspartame [Cholestyramine Light Packet] 4 gm PO DAILY PRN PRN Reason: Diarrhea carvediloL [Coreg] 6.25 mg PO BID Sodium Bicarbonate Tab 650 mg PO BID NIFEdipine XL [Procardia XL] 60 mg PO DAILY HYDROcodone/APAP 5-325MG [[place] 5-325] 1 tab PO TID PRN #9 tab PRN Reason: Pain Mckay-Gest 500mg 2 tab PO Q4H PRN PRN Reason: Gi Upset Melatonin 3 mg PO HS Discharge Medication List allopurinoL [Zyloprim] 100 mg PO DAILY 12/16/20 [History] Linagliptin [Tradjenta] 5 mg PO DAILY 08/02/21 [History] Ferrous Sulfate [Iron (65 MG Elemental)] 325 mg PO DAILY 10/11/21 [History] Insulin Lispro [humaLOG Kwikpen] See Protocol SQ ACHS PRN 12/10/21 [History] Apixaban [Eliquis] 5 mg PO BID 30 Days #60 tab 12/20/21 [Rx] Cholestyramine/Aspartame [Cholestyramine Light Packet] 4 gm PO DAILY PRN 03/07/22 [History] Acetaminophen Tab [Tylenol] 650 mg PO Q6HR PRN tab 03/14/22 [Rx] Docusate [Colace] 100 mg PO BID PRN cap 03/14/22 [Rx] Furosemide [Lasix] 40 mg PO BID 04/11/22 [History] Isosorbide Mononitrate ER [Imdur] 30 mg PO DAILY 04/11/22 [History] NIFEdipine XL [Procardia XL] 60 mg PO DAILY 04/11/22 [History] Sodium Bicarbonate Tab 650 mg PO BID 04/11/22 [History] carvediloL [Coreg] 6.25 mg PO BID 04/11/22 [History] HYDROcodone/APAP 5-325MG [[place] 5-325] 1 tab PO TID PRN #9 tab 04/13/22 [Rx] Mckay-Gest 500mg 2 tab PO Q4H PRN 05/16/22 [History] Calcium Carbonate/Vitamin D3 [[place] 250 mg-D3 3.12 mcg (125 Iu)] 2 tab PO BID 05/16/22 [History] Melatonin 3 mg PO HS 05/16/22 [History] hydrALAZINE HCL [Apresoline] 25 mg PO Q8HR 05/16/22 [History] Loperamide [Imodium] 2 mg PO QID PRN #30 cap 05/22/22 [Rx] Mirtazapine [Remeron] 7.5 mg PO HS #15 tab 05/22/22 [Rx] Pantoprazole [Protonix] 40 mg PO BID #60 tab 05/22/22 [Rx] Follow up Appointment(s)/Referral(s): Delroy Lawrence DO [Primary Care Provider] - 1-2 days Activity/Diet/Wound Care/Special Instructions: Patient will discharge to [facility] when ready for discharge, they will provide transportation. Need physician to sign med rec and fax to them at discharge ([phone]) Patient requires hospital bed to keep head of bed elevated greater than 30 degrees to manage shortness of breath from CHF; metastatic adenocarcinoma of the uterus; and ascites
[2022-05-22 15:27] VITALS: BP 127/77; PULSE 68
--- NOTE | 2022-05-22 18:11 | P.PN ---
Subjective Progress Note Date: 05/22/22 Principal diagnosis: Uterine carcinoma, vaginal bleeding In follow-up today patient has no specific complaints, continues to have lower extremity swelling, no uncontrolled pain today, some scant uterine bleeding. Objective - Vital Signs Vital signs: Vital Signs Temp 97.9 F 05/22/22 08:22 Pulse 68 05/22/22 15:26 Resp 18 05/22/22 15:26 BP 127/77 05/22/22 15:26 Pulse Ox 95 05/22/22 15:26 FiO2 Intake & Output 05/21/22 05/22/22 05/22/22 18:59 06:59 18:59 Intake Total 240 118 Output Total 400 Balance 240 -282 Weight 109.8 kg 109.8 kg Intake: Oral 240 118 Output: Urine 400 Other: Voiding Method Toilet Toilet Toilet # Voids 2 2 # Bowel Movements 0 - Constitutional General appearance: Present: cooperative, morbidly obese, no acute distress - EENT Eyes: Present: anicteric sclerae, EOMI ENT: Present: hearing grossly normal - Respiratory Details: Respirations even and unlabored at rest - Peripheral edema leg Peripheral Edema: bilateral: 2+ - Integumentary Integumentary: Present: pale - Neurologic Neurologic: Present: CNII-XII intact (Closely) - Musculoskeletal Musculoskeletal: Present: generalized weakness - Psychiatric Psychiatric: Present: A&O x's 3, appropriate affect, intact judgment & insight - Labs CBC & Chem 7: 05/20/22 07:59 05/20/22 07:59 Labs: Abnormal Lab Results - Last 24 Hours (Table) 05/21/22 05/22/22 05/22/22 Range/Units 20:39 06:15 11:43 POC Glucose (mg/dL) 200 H 134 H 237 H (70-110) mg/dL Microbiology - Last 24 Hours (Table) 05/19/22 18:40 Urine Culture - Final Urine,Voided Escherichia coli 05/18/22 14:00 Gram Stain - Preliminary Paracentesis Fluid Body Fluid Culture - Preliminary Assessment and Plan (1) Dysfunctional uterine bleeding Status: Acute Priority: High Code(s): N93.8 - OTHER SPECIFIED ABNORMAL UTERINE AND VAGINAL BLEEDING SNOMED Code(s): 15560731675694 (2) Symptomatic anemia Status: Acute Priority: High Code(s): D64.9 - ANEMIA, UNSPECIFIED SNOMED Code(s): 722895515 (3) Adenocarcinoma of the endometrium/uterus Status: Chronic Priority: Medium Code(s): C54.1 - MALIGNANT NEOPLASM OF ENDOMETRIUM SNOMED Code(s): 111155924 Plan: When seen today patient states that she has opted for hospice. She had questions about if this was a reasonable decision for her. I told her that it certainly is reasonable. Patient has no family, she does require assistance with care and having chemotherapy is a big commitment with multiple appointments and potential for not feeling well. Patient asked if in the future, if she feels better, if she could consider having treatment, which is okay, She would just need to contact the office and schedule an appointment to be seen So she could be assessed prior to beginning any treatment. She asked how things may progress without treatment. Without treatment, ascites will continue to Reaccumulating, she may require palliative paracentesis. The swelling in her legs may be persistent as well. The symptoms from her ascites, including shortness of breath, early satiety and bowel fluctuations are possible. She was reassured that on hospice symptoms would be treated. Reassured patient that her decisions need to be what is right for her. All of her questions were answered to the my best ability and to her satisfaction. Time with Patient: Greater than 30
--- NOTE | 2022-06-05 05:46 | CDI ---
Pt Name: Sharron Guillen CONFIDENTIAL MR#: [id number] Adm Date: 05/18/2022 07:07:00 PM Printed:06/05/2022 Physician Documentation Request Page 2 of 2 ICD-10-CM Ready Physicians Documentation Request This Form is Not a Permanent Document in the Medical Record Pt Name: Sharron Guillen MR #: [id number] Payor: MEDICARE Unit/Bed: [id number] Adm Date: 05/18/2022 07:07:00 PM Reviewer: Helen Martínez Ext. Query Date: 06/05/2022 05:22:00 AM By submitting this query, we are merely seeking further clarification of documentation to accurately reflect all conditions that you are monitoring, evaluating, treating or that extend the hospitalization or utilize additional resources of care. Please utilize your independent clinical judgment when addressing the question(s) below. Dear Doctor Estefania Jimenez, The patients Clinical Indicators include: see below There is documentation of patient having a pulmonary embolism throughout the chart. Patient had IVC for PE due to patient's recurring bleeding from Eliquis. Additional clarification of the acuity of the condition is requested. History/Risk Factors: Uterine cancer. PE's diagnosed since November and patient is not tolerating anticoagulant Clinical Indicators: Abnormal pulmonary perfusion test in November 2021 Patient with high probability for PE Treatment: IVC placement "Preoperative diagnosis Metastatic endometrial adenocarcinoma, pulmonary embolism, acute blood loss anemia unable to anticoagulate." Can you please clarify the acuity of the Pulmonary embolism? [x] Acute pulmonary embolism [ ] Acute and chronic pulmonary embolism [ ] Chronic pulmonary embolism [ ] History of pulmonary embolism [ ] Other, please specify [ ] Unable to determine PLEASE DOCUMENT ANY ADDITIONAL DIAGNOSES AND/OR SPECIFICITY IN THE PROGRESS NOTES AND/OR DISCHARGE SUMMARY. Agreed & documented Clinically unable to determine/unknown Disagree with the above request Need to discuss MTDD
== END 2022-05-22 15:51 | disposition home or self-care (01) | DRG 754 ==
LOC: EC 10:43 → 3SCARD 11:11 → OBSVTOIN 05-18 19:07
PROVIDERS: ADMIT Student in an Organized Health Care Education/Training Program; ATTEND Student in an Organized Health Care Education/Training Program
PROC: 30233N1 Transfusion of Nonautologous Red Blood Cells into Peripheral Vein, Percutaneous Approach (ICD-10-PCS; 2022-05-16)
PROC: 0W9G3ZZ Drainage of Peritoneal Cavity, Percutaneous Approach (ICD-10-PCS; 2022-05-18)
PROC: 05HY33Z Insertion of Infusion Device into Upper Vein, Percutaneous Approach (ICD-10-PCS; 2022-05-19)
PROC: 06H03DZ Insertion of Intraluminal Device into Inferior Vena Cava, Percutaneous Approach (ICD-10-PCS; principal; 2022-05-20 12:00)
DX: C54.1 Malignant neoplasm of endometrium (principal); I26.99 Other pulmonary embolism without acute cor pulmonale; D62 Acute posthemorrhagic anemia; I13.0 Hypertensive heart and chronic kidney disease with heart failure and stage 1 through stage 4 chronic kidney disease, or unspecified chronic kidney disease; I50.32 Chronic diastolic (congestive) heart failure; E87.20 Acidosis, unspecified; R18.0 Malignant ascites; D68.32 Hemorrhagic disorder due to extrinsic circulating anticoagulants; N95.0 Postmenopausal bleeding; M10.9 Gout, unspecified; N93.8 Other specified abnormal uterine and vaginal bleeding; D50.9 Iron deficiency anemia, unspecified; E11.22 Type 2 diabetes mellitus with diabetic chronic kidney disease; G47.00 Insomnia, unspecified; T45.515A Adverse effect of anticoagulants, initial encounter; F32.A Depression, unspecified; I27.20 Pulmonary hypertension, unspecified; K59.00 Constipation, unspecified; N18.30 Chronic kidney disease, stage 3 unspecified; R32 Unspecified urinary incontinence; I25.2 Old myocardial infarction; E78.5 Hyperlipidemia, unspecified; E86.0 Dehydration; Z17.0 Estrogen receptor positive status [ER+]; Z51.5 Encounter for palliative care; Z79.01 Long term (current) use of anticoagulants; Z79.4 Long term (current) use of insulin; Z79.84 Long term (current) use of oral hypoglycemic drugs; Z79.899 Other long term (current) drug therapy; Z82.49 Family history of ischemic heart disease and other diseases of the circulatory system; Z92.3 Personal history of irradiation; Z71.3 Dietary counseling and surveillance
CPT/HCPCS: 36410; 36415; 37191; 49083; 76937; 80053; 81001; 82947; 83036; 83615; 84157; 84484; 85025; 85027; 85049; 85610; 85730; 86850; 86900; 86901; 86920; 87070; 87077; 87086; 87186; 87205; 88108; 88305; 88341; 88342; 89050; 93005; 94760; 99285

== ENCOUNTER 2022-05-30 16:46 | Emergency (ER) | payer MEDICARE, BC ==
--- NOTE | 2022-05-30 17:29 | ED ---
Recheck HPI - General Source: patient Limitations: no limitations - History of Present Illness MD Complaint: abnormal lab Onset/Timin -: days(s) Returns Today for: Called Because of Abnormal Lab/Test Symptoms Since Prior Visit: worsening swelling Context: called for abnormal lab result Associated Symptoms: none <Keon Ryan - Last Filed: 05/30/22 17:26> <Che Daniels Trinity - Last Filed: 05/31/22 00:23> - General Chief Complaint: Recheck/Abnormal Lab/Rx Stated Complaint: low hemoglobin Time Seen by Provider: 05/30/22 16:52 - History of Present Illness Initial Comments: This patient is a 67-year-old woman with history of previous anemia as well as advanced cancer and ascites, who states that she is here because her hemoglobin is low. The patient had blood drawn yesterday, which she states was for routine follow-up, and received call that her hemoglobin was around 5. She was advised to go to the hospital for transfusion. Patient denies chest pain, dyspnea, diaphoresis, but she states she does feel fatigue and generalized weakness. The patient also states she's had some increase in bilateral leg edema and weeping over the past days to weeks. (Keon Ryan) - Related Data Home Medications Medication Instructions Recorded Confirmed allopurinoL [Zyloprim] 100 mg PO DAILY 12/16/20 05/30/22 Linagliptin [Tradjenta] 5 mg PO DAILY 08/02/21 05/30/22 Ferrous Sulfate [Iron (65 MG 325 mg PO DAILY 10/11/21 05/30/22 Elemental)] Insulin Lispro [humaLOG Kwikpen] See Protocol SQ ACHS PRN 12/10/21 05/30/22 Cholestyramine/Aspartame 4 gm PO DAILY PRN 03/07/22 05/30/22 [Cholestyramine Light Packet] Furosemide [Lasix] 40 mg PO BID 04/11/22 05/30/22 Isosorbide Mononitrate ER [Imdur] 30 mg PO DAILY 04/11/22 05/30/22 NIFEdipine XL [Procardia XL] 60 mg PO DAILY 04/11/22 05/30/22 Sodium Bicarbonate Tab 650 mg PO BID 04/11/22 05/30/22 carvediloL [Coreg] 6.25 mg PO BID 04/11/22 05/30/22 Mckay-Gest 500mg 2 tab PO Q4H PRN 05/16/22 05/30/22 Calcium Carbonate/Vitamin D3 2 tab PO BID 05/16/22 05/30/22 [Oyster Shell 250 mg-D3 3.12 mcg (125 Iu)] Melatonin 3 mg PO HS 05/16/22 05/30/22 hydrALAZINE HCL [Apresoline] 25 mg PO Q8HR 05/16/22 05/30/22 Previous Rx's Medication Instructions Recorded Apixaban [Eliquis] 5 mg PO BID 30 Days #60 tab 12/20/21 Acetaminophen Tab [Tylenol] 650 mg PO Q6HR PRN tab 03/14/22 Docusate [Colace] 100 mg PO BID PRN cap 03/14/22 HYDROcodone/APAP 5-325MG [[place] 1 tab PO TID PRN #9 tab 04/13/22 5-325] Loperamide [Imodium] 2 mg PO QID PRN #30 cap 05/22/22 Mirtazapine [Remeron] 7.5 mg PO HS #15 tab 05/22/22 Pantoprazole [Protonix] 40 mg PO BID #60 tab 05/22/22 Allergies Allergy/AdvReac Type Severity Reaction Status Date / Time No Known Allergies Allergy Verified 05/30/22 18:06 Review of Systems ROS Other: All systems not noted in ROS Statement are negative. Constitutional: Reports: weakness. Denies: fever, chills Respiratory: Denies: cough, dyspnea Cardiovascular: Reports: edema. Denies: chest pain, palpitations, syncope Gastrointestinal: Denies: abdominal pain, nausea, vomiting, melena, hematochezia Genitourinary: Denies: dysuria, hematuria Musculoskeletal: Denies: back pain Skin: Denies: rash Neurological: Denies: headache, weakness Hematological/Lymphatic: Denies: easy bleeding <Keon Ryan - Last Filed: 05/30/22 17:26> ROS Other: All systems not noted in ROS Statement are negative. <Che Daniels - Last Filed: 05/31/22 00:23> ROS Statement: Those systems with pertinent positive or pertinent negative responses have been documented in the HPI. Past Medical History Past Medical History: Coronary Artery Disease (CAD), Cancer, Heart Failure, Diabetes Mellitus, Hyperlipidemia, Hypertension, Renal Disease Additional Past Medical History / Comment(s): anemia, pulmonary edema, gout, weakness, uterine Ca, ascites History of Any Multi-Drug Resistant Organisms: None Reported Past Surgical History: No Surgical Hx Reported Additional Past Surgical History / Comment(s): Vagninal screen, Past Anesthesia/Blood Transfusion Reactions: No Reported Reaction Past Psychological History: Depression Smoking Status: Never smoker Past Alcohol Use History: None Reported Past Drug Use History: None Reported - Past Family History Father Family Medical History: Myocardial Infarction (CA) Additional Family Medical History / Comment(s): father of CA at 58 years old Mother Family Medical History: No Reported History Additional Family Medical History / Comment(s): mother of old age at 95 years old <ShelbyKeon - Last Filed: 05/30/22 17:26> General Exam Limitations: no limitations General appearance: alert, in no apparent distress Respiratory exam: Present: normal lung sounds bilaterally. Absent: respiratory distress, wheezes, rales, rhonchi, stridor Cardiovascular Exam: Present: regular rate, normal rhythm, normal heart sounds. Absent: systolic murmur, diastolic murmur, rubs, gallop GI/Abdominal exam: Present: soft, distended. Absent: tenderness, guarding, rebound Extremities exam: Present: normal capillary refill, pedal edema (There is bilateral edema with some stasis changes and weeping). Absent: tenderness, calf tenderness Neurological exam: Present: alert Skin exam: Present: warm, dry, intact, pallor. Absent: rash <ShelbyKeon - Last Filed: 05/30/22 17:26> Course Vital Signs 05/30/22 05/30/22 05/30/22 16:49 17:16 18:23 Temperature 98.1 F 98.3 F Pulse Rate 68 69 65 Respiratory 18 18 18 Rate Blood Pressure 191/76 183/76 154/88 O2 Sat by Pulse 95 97 95 Oximetry 05/30/22 05/30/22 05/30/22 18:33 18:53 21:50 Temperature 98.3 F 98.3 F 98.2 F Pulse Rate 66 65 73 Respiratory 18 18 16 Rate Blood Pressure 176/74 173/69 177/85 O2 Sat by Pulse 93 L 95 93 L Oximetry 05/30/22 05/30/22 05/30/22 21:51 21:54 22:06 Temperature 98.2 F 98.2 F 98.4 F Pulse Rate 73 68 62 Respiratory 16 16 Rate Blood Pressure 177/85 177/85 179/82 O2 Sat by Pulse 94 L 95 97 Oximetry 05/30/22 05/31/22 05/31/22 22:26 00:00 00:08 Temperature 98.3 F 98.3 F 98.3 F Pulse Rate 62 62 62 Respiratory 16 16 16 Rate Blood Pressure 193/83 183/76 174/80 O2 Sat by Pulse 94 L 95 94 L Oximetry 05/31/22 00:09 Temperature 98.3 F Pulse Rate 62 Respiratory 16 Rate Blood Pressure 174/80 O2 Sat by Pulse 95 Oximetry Medical Decision Making - Lab Data Result diagrams: 05/30/22 17:15 05/30/22 17:15 <Che Daniels - Last Filed: 05/31/22 00:23> - Medical Decision Making Patient did receive 2 units of blood for her anemia and will be discharged home she needs to follow up with her primary care doctor in 2-4 days for repeat laboratory draw. Return to the emergency room for any new or worsening symptoms (Che Daniels) - Lab Data Lab Results 05/30/22 05/30/22 05/30/22 Range/Units 17:15 17:15 17:15 WBC 7.1 (3.8-10.6) k/uL RBC 2.13 L (3.80-5.40) m/uL Hgb 6.6 L* (11.4-16.0) gm/dL Hct 21.7 L (34.0-46.0) % MCV 101.9 H (80.0-100.0) fL MCH 31.2 (25.0-35.0) pg MCHC 30.7 L (31.0-37.0) g/dL RDW 18.0 H (11.5-15.5) % Plt Count 239 (150-450) k/uL MPV 8.4 Neutrophils % 85 % Lymphocytes % 8 % Monocytes % 4 % Eosinophils % 2 % Basophils % 1 % Neutrophils # 6.1 (1.3-7.7) k/uL Lymphocytes # 0.6 L (1.0-4.8) k/uL Monocytes # 0.3 (0-1.0) k/uL Eosinophils # 0.1 (0-0.7) k/uL Basophils # 0.1 (0-0.2) k/uL Hypochromasia Marked Poikilocytosis Slight Anisocytosis Slight Macrocytosis Moderate Sodium 138 (137-145) mmol/L Potassium 5.3 H (3.5-5.1) mmol/L Chloride 111 H (98-107) mmol/L Carbon Dioxide 21 L (22-30) mmol/L Anion Gap 6 mmol/L BUN 63 H (7-17) mg/dL Creatinine 1.50 H (0.52-1.04) mg/dL Est GFR (CKD-EPI)AfAm 41 (>60 ml/min/1.73 sqM) Est GFR (CKD-EPI)NonAf 36 (>60 ml/min/1.73 sqM) Glucose 163 H (74-99) mg/dL Calcium 7.9 L (8.4-10.2) mg/dL Total Bilirubin 0.3 (0.2-1.3) mg/dL AST 27 (14-36) U/L ALT 20 (4-34) U/L Alkaline Phosphatase 165 H (38-126) U/L Total Protein 5.9 L (6.3-8.2) g/dL Albumin 3.2 L (3.5-5.0) g/dL Blood Type A Positive Blood Type Recheck A Pos Bld Type Recheck Status No Antibody Screen NEGATIVE Crossmatch See Detail Spec Expiration Date 06/02/20220 Disposition <Keon Ryan - Last Filed: 05/30/22 17:26> Is patient prescribed a controlled substance at d/c from ED?: No Time of Disposition: 23:36 <Che Daniels - Last Filed: 05/31/22 00:23> Clinical Impression: Symptomatic anemia, Macrocytic anemia Disposition: HOME SELF-CARE Condition: Stable Instructions (If sedation given, give patient instructions): Anemia (ED) Additional Instructions: You have been given a blood transfusion. You need to follow-up with your primary care doctor in 2-4 days for reevaluation of your hemoglobin. Return to the emergency room for any new or worsening symptoms Referrals: Delroy Lawrence DO [Primary Care Provider] - 1-2 days
[2022-05-30 17:32] LABS: Anisocytosis Slight; Basophils # (A) 0.1 k/uL (0-0.2); Basophils % (A) 1 %; Eosinophils # (A) 0.1 k/uL (0-0.7); Eosinophils % (A) 2 %; HCT 21.7 % (34.0-46.0); Hypochromasia Marked; Lymphocytes # (A) 0.6 k/uL (1.0-4.8); Lymphocytes % (A) 8 %; MCH 31.2 pg (25.0-35.0); MCHC 30.7 g/dL (31.0-37.0); MCV 101.9 fL (80.0-100.0); Macrocytosis Moderate; Mean Platelet Volume 8.4; Monocytes # (A) 0.3 k/uL (0-1.0); Monocytes % (A) 4 %; Neutrophils # (A) 6.1 k/uL (1.3-7.7); Neutrophils % (A) 85 %; Platelet Count 239 k/uL (150-450); Poikilocytosis Slight; RBC 2.13 m/uL (3.80-5.40); WBC 7.1 k/uL (3.8-10.6)
[2022-05-30 17:44] LABS: Albumin 3.2 g/dL (3.5-5.0); Calcium 7.9 mg/dL (8.4-10.2); Potassium 5.3 mmol/L (3.5-5.1); Total Bilirubin 0.3 mg/dL (0.2-1.3); Total Protein 5.9 g/dL (6.3-8.2)
[2022-05-30 17:45] LABS: HGB 6.6 gm/dL (11.4-16.0)
[2022-05-30 21:51] VITALS: RESP 16
[2022-05-30 23:12] VITALS: PULSE 62
[2022-05-30] MEDS ORDERED: HYDROcodone/APAP 5-325MG 1 EACH TAB PO STA (23:35)
[2022-05-30 23:37] VITALS: TEMP 98.3
[2022-05-31 00:08] VITALS: BP 174/80
== END 2022-05-31 01:05 | disposition home or self-care (01) ==
LOC: EC 16:46
DX: D53.9 Nutritional anemia, unspecified (principal); I13.0 Hypertensive heart and chronic kidney disease with heart failure and stage 1 through stage 4 chronic kidney disease, or unspecified chronic kidney disease; E11.22 Type 2 diabetes mellitus with diabetic chronic kidney disease; N18.9 Chronic kidney disease, unspecified; I25.10 Atherosclerotic heart disease of native coronary artery without angina pectoris; F32.A Depression, unspecified; Z79.84 Long term (current) use of oral hypoglycemic drugs; Z79.4 Long term (current) use of insulin; Z79.811 Long term (current) use of aromatase inhibitors; Z79.899 Other long term (current) drug therapy
CPT/HCPCS: 36415; 86900; 86901; 80053; 85025; 86850; 86920; 99285; 36430; P9016

== ENCOUNTER 2022-06-20 12:27 | Day surgery (SDC) | payer MEDICARE, BC ==
[2022-06-20 13:14] LABS: Anisocytosis Slight; Basophils % (A) 1 %; Eosinophils # (A) 0.1 k/uL (0-0.7); Eosinophils % (A) 1 %; Hypochromasia Marked; Lymphocytes # (A) 0.8 k/uL (1.0-4.8); Lymphocytes % (A) 10 %; MCH 29.8 pg (25.0-35.0); MCHC 29.5 g/dL (31.0-37.0); MCV 101.2 fL (80.0-100.0); Macrocytosis Moderate; Mean Platelet Volume 8.5; Monocytes # (A) 0.2 k/uL (0-1.0); Monocytes % (A) 3 %; Neutrophils # (A) 6.8 k/uL (1.3-7.7); Neutrophils % (A) 85 %; Platelet Count 250 k/uL (150-450); RBC 1.84 m/uL (3.80-5.40); RDW 17.9 % (11.5-15.5)
[2022-06-20 13:19] LABS: HGB 5.5 gm/dL (11.4-16.0); Prothrombin Time 10.5 sec (9.0-12.0)
[2022-06-20 13:20] LABS: HCT 18.6 % (34.0-46.0)
[2022-06-20 13:32] VITALS: BP 203/79; PULSE 66; RESP 16; TEMP 97.6
== END 2022-06-20 13:50 | disposition home or self-care (01) ==
LOC: RADPROMAIN 12:27
PROVIDERS: ATTEND Internal Medicine Hematology & Oncology
DX: R18.8 Other ascites (principal)
CPT/HCPCS: 36415; 82947; 85025; 85610

== ENCOUNTER 2022-06-20 13:49 | Observation (INO) | payer MEDICARE, BC ==
[2022-06-20] MEDS ORDERED: HYDROmorphone 0.5 MG/0.5 ML SYRINGE IVP STA (14:11)
[2022-06-20 15:05] LABS: Amorphous Sediment,Urine Moderate /hpf; Appearance,Urine Cloudy (Clear); Bacteria,Urine Few /hpf; Bilirubin,Urine Negative (Negative); Blood,Urine Negative (Negative); Color,Urine Colorless; Glucose,Urine (UA) Negative (Negative); Hyaline Casts,Urine 3 /lpf (0-2); Ketones,Urine Negative (Negative); Leukocyte Esterase,Urine Negative (Negative); Nitrite,Urine Negative (Negative); PH, Urine 5.5 (5.0-8.0); Protein,Urine 2+ (Negative); RBC,Urine 4 /hpf (0-5); Squamous Epithelial Cell,Urine <1 /hpf (0-4); Urobilinogen,Urine <2.0 mg/dL (<2.0); WBC,Urine 5 /hpf (0-5)
--- NOTE | 2022-06-20 15:19 | US ---
EXAMINATION TYPE: US abdomen limited DATE OF EXAM: 06/20/2022 COMPARISON: Abdominal ultrasound 04/12/2022. CLINICAL HISTORY: to assess for fluid pocket please. All four quadrants scanned. Ascites seen. Small to moderate volume ascites. Anasarca. IMPRESSION: [id number] volume ascites.
[2022-06-20 15:40] LABS: Albumin 2.5 g/dL (3.5-5.0); Calcium 7.6 mg/dL (8.4-10.2); Magnesium 1.9 mg/dL (1.6-2.3); Potassium 5.1 mmol/L (3.5-5.1); Total Bilirubin 0.1 mg/dL (0.2-1.3)
[2022-06-20 16:03] LABS: Anisocytosis Slight; Hypochromasia Marked; MCH 31.2 pg (25.0-35.0); MCHC 31.1 g/dL (31.0-37.0); MCV 100.4 fL (80.0-100.0); Macrocytosis Slight; Mean Platelet Volume 9.3; Platelet Count 191 k/uL (150-450); RBC 1.65 m/uL (3.80-5.40); RDW 17.4 % (11.5-15.5); WBC 6.3 k/uL (3.8-10.6)
[2022-06-20 16:11] LABS: HCT 16.5 % (34.0-46.0); HGB 5.1 gm/dL (11.4-16.0)
[2022-06-20 16:15] LABS: Prothrombin Time 10.2 sec (9.0-12.0)
[2022-06-20 16:17] LABS: Partial Thromboplastin Time 19.8 sec (22.0-30.0)
[2022-06-20 16:51] LABS: Band Neutrophils % 1 %; Eosinophils # (M) 0.25 k/uL (0-0.7); Lymphocytes # (M) 0.63 k/uL (1.0-4.8); Metamyelocytes # (M) 0.06 k/uL (0); Metamyelocytes % 1 %; Monocytes # (M) 0.13 k/uL (0-1.0); Neutrophils % (M) 84 %; Nucleated Red Blood Cells 0 /100 WBC (0-0); Total Cells Counted 200
--- NOTE | 2022-06-20 16:52 | ED ---
General Adult HPI - General Chief complaint: Recheck/Abnormal Lab/Rx Stated complaint: abn labs Time Seen by Provider: 06/20/22 13:55 Source: patient, RN notes reviewed, old records reviewed Mode of arrival: ambulatory Limitations: no limitations - History of Present Illness Initial comments: This is a 67-year-old female presents emergency Department with a past medical history significant for uterine cancer with metastatic disease to the abdomen. Patient states she continues to have vaginal bleeding almost daily basis. Patient is no longer taking chemo or radiation. Patient was sent to the emergency department because her hemoglobin was low. Patient states she is fatigued. Patient also short of breath. Patient denies chest pain or palpita tions. Patient states her baseline hemoglobin was around 8 but often she gets down lower and has come in for transfusions. Patient denies any recent fever or chills. Patient denies any headache. - Related Data Home Medications Medication Instructions Recorded Confirmed allopurinoL [Zyloprim] 100 mg PO DAILY 12/16/20 06/15/22 Ferrous Sulfate [Iron (65 MG 325 mg PO DAILY 10/11/21 06/15/22 Elemental)] Furosemide [Lasix] 40 mg PO BID 04/11/22 06/15/22 Isosorbide Mononitrate ER [Imdur] 30 mg PO DAILY 04/11/22 06/15/22 carvediloL [Coreg] 6.25 mg PO BID 04/11/22 06/15/22 Calcium Carbonate/Vitamin D3 2 tab PO BID 05/16/22 06/15/22 [Oyster Shell 250 mg-D3 3.12 mcg (125 Iu)] Melatonin 3 mg PO HS 05/16/22 06/20/22 hydrALAZINE HCL [Apresoline] 50 mg PO TID 05/16/22 05/30/22 Cholecalciferol [Vitamin D3 (125 125 mcg PO DAILY 06/20/22 06/20/22 Mcg = 5000 Iu)] Previous Rx's Medication Instructions Recorded Acetaminophen Tab [Tylenol] 650 mg PO Q6HR PRN tab 03/14/22 HYDROcodone/APAP 5-325MG [[place] 1 tab PO TID PRN #9 tab 04/13/22 5-325] Pantoprazole [Protonix] 40 mg PO BID #60 tab 05/22/22 Allergies Allergy/AdvReac Type Severity Reaction Status Date / Time No Known Allergies Allergy Verified 06/20/22 13:59 Review of Systems ROS Statement: Those systems with pertinent positive or pertinent negative responses have been documented in the HPI. ROS Other: All systems not noted in ROS Statement are negative. Past Medical History Past Medical History: Coronary Artery Disease (CAD), Cancer, Heart Failure, Diabetes Mellitus, Hyperlipidemia, Hypertension, Renal Disease Additional Past Medical History / Comment(s): anemia, pulmonary edema, gout, weakness, uterine Ca, ascites History of Any Multi-Drug Resistant Organisms: None Reported Past Surgical History: No Surgical Hx Reported Additional Past Surgical History / Comment(s): Vagninal screen, Past Anesthesia/Blood Transfusion Reactions: No Reported Reaction Past Psychological History: No Psychological Hx Reported, Depression Smoking Status: Never smoker Past Alcohol Use History: None Reported Past Drug Use History: None Reported - Past Family History Father Family Medical History: Myocardial Infarction ([place]) Additional Family Medical History / Comment(s): father of [place] at 58 years old Mother Family Medical History: No Reported History Additional Family Medical History / Comment(s): mother of old age at 95 years old General Exam - General Exam Comments Initial Comments: GENERAL: Patient is well-developed and well-nourished. Patient is nontoxic and well- hydrated and is in mild distress. ENT: Neck is soft and supple. No significant lymphadenopathy is noted. Oropharynx is clear. Moist mucous membranes. Neck has full range of motion without eliciting any pain. EYES: The sclera were anicteric and conjunctiva are very pale. Extraocular movements were intact and pupils were equal round and reactive to light. Eyelids were unremarkable. PULMONARY: Unlabored respirations. Good breath sounds bilaterally. No audible rales rhonchi or wheezing was noted. CARDIOVASCULAR: There is a regular rate and rhythm without any murmurs gallops or rubs. ABDOMEN: Soft and nontender with normal bowel sounds. No palpable organomegaly was noted. There is no palpable pulsatile mass. SKIN: Patient's conjunctiva are pale. NEUROLOGIC: Patient is alert and oriented x3. Cranial nerves II through XII are grossly intact. Motor and sensory are also intact. Normal speech, volume and content. Symmetrical smile. MUSCULOSKELETAL: Normal extremities with adequate strength and full range of motion. LYMPHATICS: No significant lymphadenopathy is noted PSYCHIATRIC: Normal psychiatric evaluation. Limitations: no limitations Course Vital Signs 06/20/22 06/20/22 13:52 16:27 Temperature 98 F 98.1 F Pulse Rate 67 60 Respiratory 18 18 Rate Blood Pressure 175/76 186/87 O2 Sat by Pulse 98 100 Oximetry Procedures - Lawrence Protocol (Time Out) Nurse: Richard Jules Medical Decision Making - Medical Decision Making Patient's hemoglobin was 5.1 I ordered 2 units of packed red blood cells. I spoke with some physicians agreed to admit the patient admitted the patient wrote admitting orders I consulted Dr. José - Lab Data Result diagrams: 06/20/22 15:20 06/20/22 15:09 Lab Results 06/20/22 06/20/22 06/20/22 Range/Units 14:42 15:05 15:09 WBC (3.8-10.6) k/uL RBC (3.80-5.40) m/uL Hgb (11.4-16.0) gm/dL Hct (34.0-46.0) % MCV (80.0-100.0) fL MCH (25.0-35.0) pg MCHC (31.0-37.0) g/dL RDW (11.5-15.5) % Plt Count (150-450) k/uL MPV Hypochromasia Anisocytosis Macrocytosis PT 10.2 (9.0-12.0) sec INR 1.0 (<1.2) APTT 19.8 L (22.0-30.0) sec Sodium (137-145) mmol/L Potassium (3.5-5.1) mmol/L Chloride (98-107) mmol/L Carbon Dioxide (22-30) mmol/L Anion Gap mmol/L BUN (7-17) mg/dL Creatinine (0.52-1.04) mg/dL Est GFR (CKD-EPI)AfAm (>60 ml/min/1.73 sqM) Est GFR (CKD-EPI)NonAf (>60 ml/min/1.73 sqM) Glucose (74-99) mg/dL Calcium (8.4-10.2) mg/dL Magnesium (1.6-2.3) mg/dL Total Bilirubin (0.2-1.3) mg/dL AST (14-36) U/L ALT (4-34) U/L Alkaline Phosphatase (38-126) U/L Troponin I (0.000-0.034) ng/mL Total Protein (6.3-8.2) g/dL Albumin (3.5-5.0) g/dL Urine Color Colorless Urine Appearance Cloudy H (Clear) Urine pH 5.5 (5.0-8.0) Ur Specific [place] 1.010 (1.001-1.035) Urine Protein 2+ H (Negative) Urine Glucose (UA) Negative (Negative) Urine Ketones Negative (Negative) Urine Blood Negative (Negative) Urine Nitrite Negative (Negative) Urine Bilirubin Negative (Negative) Urine Urobilinogen <2.0 (<2.0) mg/dL Ur Leukocyte Esterase Negative (Negative) Urine RBC 4 (0-5) /hpf Urine WBC 5 (0-5) /hpf Ur Squamous Epith Cells <1 (0-4) /hpf Amorphous Sediment Moderate H (None) /hpf Urine Bacteria Few H (None) /hpf Hyaline Casts 3 H (0-2) /lpf Blood Type A Positive Blood Type Recheck A Pos Bld Type Recheck Status No Antibody Screen NEGATIVE Crossmatch See Detail Spec Expiration Date 06/23/2022 - 230406/20/22 06/20/22 06/20/22 Range/Units 15:09 15:09 15:20 WBC 6.3 (3.8-10.6) k/uL RBC 1.65 L (3.80-5.40) m/uL Hgb 5.1 L* (11.4-16.0) gm/dL Hct 16.5 L* (34.0-46.0) % MCV 100.4 H (80.0-100.0) fL MCH 31.2 (25.0-35.0) pg MCHC 31.1 (31.0-37.0) g/dL RDW 17.4 H (11.5-15.5) % Plt Count 191 (150-450) k/uL MPV 9.3 Hypochromasia Marked Anisocytosis Slight Macrocytosis Slight PT (9.0-12.0) sec INR (<1.2) APTT (22.0-30.0) sec Sodium 138 (137-145) mmol/L Potassium 5.1 (3.5-5.1) mmol/L Chloride 114 H (98-107) mmol/L Carbon Dioxide 18 L (22-30) mmol/L Anion Gap 6 mmol/L BUN 51 H (7-17) mg/dL Creatinine 1.46 H (0.52-1.04) mg/dL Est GFR (CKD-EPI)AfAm 43 (>60 ml/min/1.73 sqM) Est GFR (CKD-EPI)NonAf 37 (>60 ml/min/1.73 sqM) Glucose 158 H (74-99) mg/dL Calcium 7.6 L (8.4-10.2) mg/dL Magnesium 1.9 (1.6-2.3) mg/dL Total Bilirubin 0.1 L (0.2-1.3) mg/dL AST 19 (14-36) U/L ALT 13 (4-34) U/L Alkaline Phosphatase 139 H (38-126) U/L Troponin I <0.012 (0.000-0.034) ng/mL Total Protein 5.0 L (6.3-8.2) g/dL Albumin 2.5 L (3.5-5.0) g/dL Urine Color Urine Appearance (Clear) Urine pH (5.0-8.0) Ur Specific [place] (1.001-1.035) Urine Protein (Negative) Urine Glucose (UA) (Negative) Urine Ketones (Negative) Urine Blood (Negative) Urine Nitrite (Negative) Urine Bilirubin (Negative) Urine Urobilinogen (<2.0) mg/dL Ur Leukocyte Esterase (Negative) Urine RBC (0-5) /hpf Urine WBC (0-5) /hpf Ur Squamous Epith Cells (0-4) /hpf Amorphous Sediment (None) /hpf Urine Bacteria (None) /hpf Hyaline Casts (0-2) /lpf Blood Type Blood Type Recheck Bld Type Recheck Status Antibody Screen Crossmatch Spec Expiration Date Critical Care Time Critical Care Time: Yes Total Critical Care Time: 35 Disposition Clinical Impression: Vaginal bleeding, Uterine cancer, Anemia Disposition: ADMITTED IP TO THIS [facility] Referrals: None,Stated [Primary Care Provider] - 1-2 days Time of Disposition: 16:40
[2022-06-20] MEDS ORDERED: SODIUM CHLORIDE 0.9% 1,000 ML IV ONE (16:53)
[2022-06-20 16:54] LABS: Poikilocytosis (M) Present
[2022-06-20] MEDS ORDERED: NALOXONE 0.4 MG/ML 1 ML VIAL IV PRN (17:50)
[2022-06-20] MEDS ORDERED: MELATONIN 3 MG TABLET PO PRN (17:50)
[2022-06-20] MEDS ORDERED: ACETAMINOPHEN TAB 325 MG TAB PO PRN (17:50)
[2022-06-20] MEDS ORDERED: ONDANSETRON 4 MG/2 ML VIAL IVP PRN (17:50)
--- NOTE | 2022-06-20 17:50 | P.HPIM ---
History of Present Illness H&P Date: 06/20/22 Patient is a 67-year-old female with stage IV uterine cancer with recurrent malignant ascites, diastolic CHF, hypertension, diabetes, and chronic kidney who was sent to the emergency department secondary to low hemoglobin. She was recently hospitalized from 05/18 through 05/22 records reviewed from this hospitalization. She was hospitalized for acute anemia at that time. She had been on eliquis but had conitnued bleeding, this was stopped and an IVC filter was placed. Patint was discharged to [facility] on palliative care. Patient seen and examined at bedside with friends present. Apparently since being discharged last admission she has had bleeding on almost a daily basis. Sometimes it is better and sometimes it is worse. The last couple of days her bleeding has been worse. Since discharge she has been getting a transfusion every 2 weeks on an outpatient basis. She also has a coming back in for paracentesis. Today she presented for paracentesis they checked her blood count was 5. They did not do the paracentesis and send her to the ER for transfusion. She continues to struggle with weakness. She is a walker and a wheelchair on a regular basis. She does have shortness of breath when attempting activities but is fine at baseline. She is unable to lay flat secondary to shortness of breath. She denies any nausea or vomiting. Her appetite has been poor. Her largest remaining edema has been improving. She continues to follow with palliative care, she wants to give a trial to the new hormonal medication she was placed on by oncology last week. If it continues to worsen she will consider hospice. Pertinent positives and negatives as discussed in HPI, a complete review of systems was performed and all other systems are negative. Vital signs reviewed General: Ill-appearing, appears older than stated age, mild distress Derm: warm, dry Head: atraumatic, normocephalic, symmetric Eyes: EOMI, no lid lag, anicteric sclera, pupils equal round reactive to light ENT: Nose and ears atraumatic, no thrush, no pharyngeal erythema Neck: No thyromegaly, no cervical lymphadenopathy, trachea midline, supple Mouth: no lip lesion, mucus membranes moist Cardiovascular: S1S2 reg, no murmur, positive posterior tibial pulse bilateral, 3+ edema with Denys wraps in place, capillary refill less than 2 seconds Lungs: Decreased breath sounds bilateral bases, no rhonchi, no rales, no wheeze, no accessory muscle use Abdominal: Soft, tender to palpation diffusely, + fluid wave soft, unable to appreciate organomegaly secondary to ascites Ext: no gross muscle atrophy, muscle strength 3 out of 5 in bilateral lower extremities, no contractures Neuro: CN II-XII grossly intact, light touch intact all 4 extremities, finger to nose within normal limits, Psych: Alert, oriented, blunted affect, appears withdrawn Assessment/Plan: Symptomatic anemia secondary to vaginal bleeding due to metastatic ovarian cancer with malignant ascites -2 units of packed red blood cells, Lasix after both doses IV push -Repeat CBC in a.m. -Oncology consultation - Femara Malignant ascites, decompensated -Consult IR for paracentesis in a.m. Chronic kidney disease stage III, at baseline Hyperchloremic metabolic acidosis -Resume home sodium bicarb tablets Hypertension, elevated upon arrival - Resume home Imdur, hydralazine, Coreg, Lasix -Follow blood pressures DM - diet controlled - monitor on AM BMP Chronic: Diastolic CHF, compensated Gout HLD The patient is admitted with an anticipated less than 2 midnight stay for evaluation of [symptomatic anemia]. Surrogate decision-maker: JARON CODE STATUS: DO NOT RESUSCITATE DVT prophylaxis: IVC filter in place Discussed with: Patient, nursing, ED physician Anticipated discharge date: in AM Anticipated discharge place: home A total of [65] minutes was spent on the care of this complex patient more than 50% of the time was spent in counseling and care coordination. Past Medical History Past Medical History: Coronary Artery Disease (CAD), Cancer, Heart Failure, Diabetes Mellitus, Hyperlipidemia, Hypertension, Renal Disease Additional Past Medical History / Comment(s): anemia, pulmonary edema, gout, weakness, uterine Ca, ascites History of Any Multi-Drug Resistant Organisms: None Reported Past Surgical History: No Surgical Hx Reported Additional Past Surgical History / Comment(s): Vagninal screen, Past Anesthesia/Blood Transfusion Reactions: No Reported Reaction Past Psychological History: No Psychological Hx Reported, Depression Smoking Status: Never smoker Past Alcohol Use History: None Reported Past Drug Use History: None Reported - Past Family History Father Family Medical History: Myocardial Infarction ([place]) Additional Family Medical History / Comment(s): father of [place] at 58 years old Mother Family Medical History: No Reported History Additional Family Medical History / Comment(s): mother of old age at 95 years old Medications and Allergies Home Medications Medication Instructions Recorded Confirmed Type allopurinoL [Zyloprim] 100 mg PO DAILY@0800 12/16/20 06/20/22 History Ferrous Sulfate [Iron (65 MG 325 mg PO BID@0800,199910/11/21 06/20/22 History Elemental)] Acetaminophen Tab [Tylenol] 650 mg PO Q6HR PRN tab 03/14/22 06/20/22 Rx Furosemide [Lasix] 40 mg PO BID@0800,199904/11/22 06/20/22 History Isosorbide Mononitrate ER [Imdur] 30 mg PO DAILY@0800 04/11/22 06/20/22 History carvediloL [Coreg] 6.25 mg PO BID@0800,1700 04/11/22 06/20/22 History Calcium Carbonate/Vitamin D3 2 tab PO BID@0800,199905/16/22 06/20/22 History [Oyster Shell 250 mg-D3 3.12 mcg (125 Iu)] Melatonin 3 mg PO HS@199905/16/22 06/20/22 History Cholecalciferol [Vitamin D3 (125 125 mcg PO DAILY@0800 06/20/22 06/20/22 History Mcg = 5000 Iu)] Diphenox-Atrop 2.5-0.025 mg 2 tab PO TID PRN 06/20/22 06/20/22 History [Lomotil] Docusate Sodium [Dok] 100 mg PO BID PRN 06/20/22 06/20/22 History HYDROcodone/APAP 5-325MG [[place] 1 tab PO Q6H PRN 06/20/22 06/20/22 History 5-325] Lactose-Reduced Food [Ensure Plus] 237 ml PO TID@0800,1400,199906/20/22 06/20/22 History Letrozole [Femara] 2.5 mg PO DAILY@0800 06/20/22 06/20/22 History Sodium Bicarbonate Tab 650 mg PO BID PRN 06/20/22 06/20/22 History hydrALAZINE HCL [Apresoline] 50 mg PO TID@0800,1400,199906/20/22 06/20/22 History Allergies Allergy/AdvReac Type Severity Reaction Status Date / Time No Known Allergies Allergy Verified 06/20/22 17:13 Physical Exam Osteopathic Statement: *. No significant issues noted on an osteopathic structural exam other than those noted in the History and Physical/Consult. Vitals: Vital Signs Temp Pulse Resp BP Pulse Ox 06/20/22 17:15 97 F L 65 18 187/71 98 06/20/22 16:27 98.1 F 60 18 186/87 100 06/20/22 13:52 98 F 67 18 175/76 98 Intake and Output 06/20/22 06/20/22 06/20/22 06:59 14:59 22:59 Intake Total 0 Balance 0 Intake: Blood Product 0 Unit 0 Other: Weight 90.718 kg Results CBC & Chem 7: 06/20/22 15:20 06/20/22 15:09 Labs: Abnormal Lab Results - Last 24 Hours (Table) 06/20/22 06/20/22 06/20/22 Range/Units 14:42 15:05 15:09 RBC (3.80-5.40) m/uL Hgb (11.4-16.0) gm/dL Hct (34.0-46.0) % MCV (80.0-100.0) fL RDW (11.5-15.5) % Lymphocytes # (Manual) (1.0-4.8) k/uL Metamyelocytes # (Man) (0) k/uL APTT 19.8 L (22.0-30.0) sec Chloride (98-107) mmol/L Carbon Dioxide (22-30) mmol/L BUN (7-17) mg/dL Creatinine (0.52-1.04) mg/dL Glucose (74-99) mg/dL Calcium (8.4-10.2) mg/dL Total Bilirubin (0.2-1.3) mg/dL Alkaline Phosphatase (38-126) U/L Total Protein (6.3-8.2) g/dL Albumin (3.5-5.0) g/dL Urine Appearance Cloudy H (Clear) Urine Protein 2+ H (Negative) Amorphous Sediment Moderate H (None) /hpf Urine Bacteria Few H (None) /hpf Hyaline Casts 3 H (0-2) /lpf Crossmatch See Detail 06/20/22 06/20/22 Range/Units 15:09 15:20 RBC 1.65 L (3.80-5.40) m/uL Hgb 5.1 L* (11.4-16.0) gm/dL Hct 16.5 L* (34.0-46.0) % MCV 100.4 H (80.0-100.0) fL RDW 17.4 H (11.5-15.5) % Lymphocytes # (Manual) 0.63 L (1.0-4.8) k/uL Metamyelocytes # (Man) 0.06 H (0) k/uL APTT (22.0-30.0) sec Chloride 114 H (98-107) mmol/L Carbon Dioxide 18 L (22-30) mmol/L BUN 51 H (7-17) mg/dL Creatinine 1.46 H (0.52-1.04) mg/dL Glucose 158 H (74-99) mg/dL Calcium 7.6 L (8.4-10.2) mg/dL Total Bilirubin 0.1 L (0.2-1.3) mg/dL Alkaline Phosphatase 139 H (38-126) U/L Total Protein 5.0 L (6.3-8.2) g/dL Albumin 2.5 L (3.5-5.0) g/dL Urine Appearance (Clear) Urine Protein (Negative) Amorphous Sediment (None) /hpf Urine Bacteria (None) /hpf Hyaline Casts (0-2) /lpf Crossmatch
[2022-06-20] MEDS: HYDROmorphone 0.5 MG/0.5 ML SYRINGE IVP PRN ×2 (17:52→22:09)
[2022-06-20] MEDS ORDERED: SODIUM BICARBONATE TAB 650 MG TAB PO PRN (17:52)
[2022-06-20] MEDS ORDERED: FUROSEMIDE 10 MG/ML 4 ML VIAL IV STA (17:53)
[2022-06-20] MEDS: HYDROcodone/APAP 5-325MG 1 EACH TAB PO PRN (19:50)
[2022-06-20 20:00] LABS: Glucose,Whole Blood 179 mg/dL (70-110)
[2022-06-20] MEDS ORDERED: MELATONIN 3 MG TABLET PO SCH (20:00)
[2022-06-20] MEDS: hydrALAZINE HCL 50 MG TAB PO SCH (22:56)
[2022-06-20] MEDS: FUROSEMIDE 40 MG TAB PO SCH (22:56)
[2022-06-21] MEDS: HYDROcodone/APAP 5-325MG 1 EACH TAB PO PRN ×3 (01:21→11:28)
[2022-06-21] MEDS: HYDROmorphone 0.5 MG/0.5 ML SYRINGE IVP PRN (03:38)
[2022-06-21 04:00] LABS: Anisocytosis Slight; Basophils # (A) 0.1 k/uL (0-0.2); Basophils % (A) 1 %; Eosinophils # (A) 0.1 k/uL (0-0.7); Eosinophils % (A) 2 %; Hypochromasia Marked; Lymphocytes # (A) 0.6 k/uL (1.0-4.8); Lymphocytes % (A) 10 %; MCH 30.4 pg (25.0-35.0); MCHC 30.7 g/dL (31.0-37.0); MCV 99.2 fL (80.0-100.0); Macrocytosis Slight; Mean Platelet Volume 7.9; Monocytes # (A) 0.3 k/uL (0-1.0); Monocytes % (A) 5 %; Neutrophils # (A) 4.9 k/uL (1.3-7.7); Neutrophils % (A) 82 %; Platelet Count 211 k/uL (150-450); RBC 2.52 m/uL (3.80-5.40)
[2022-06-21 04:19] LABS: Calcium 7.6 mg/dL (8.4-10.2); Potassium 4.9 mmol/L (3.5-5.1)
[2022-06-21 04:26] LABS: HGB 7.7 gm/dL (11.4-16.0)
[2022-06-21 04:27] VITALS: TEMP 97.8
[2022-06-21] MEDS ORDERED: CHOLECALCIFEROL 125 MCG (5000 IU) TABLET PO SCH (08:00)
[2022-06-21] MEDS ORDERED: carvediloL 6.25 MG TAB PO SCH (08:00)
[2022-06-21] MEDS ORDERED: ISOSORBIDE MONONITRATE ER 30 MG TAB.ER.24H PO SCH (08:00)
[2022-06-21] MEDS ORDERED: allopurinoL 100 MG TAB PO SCH (08:00)
[2022-06-21 09:36] VITALS: PULSE 63
[2022-06-21 09:48] VITALS: BP 168/71; RESP 14
[2022-06-21] MEDS ORDERED: SODIUM FERRIC GLUCONAT-SUCROSE 125 MG in SODIUM CHLORIDE 0.9% 100 ML IVPB ONE (10:10)
[2022-06-21] MEDS: hydrALAZINE HCL 50 MG TAB PO SCH (11:09)
[2022-06-21] MEDS: FUROSEMIDE 40 MG TAB PO SCH (11:09)
--- NOTE | 2022-06-21 11:29 | US ---
Ultrasound-guided paracentesis. DATE OF EXAM: 06/21/2022 CLINICAL HISTORY: Ascites The procedure was discussed with the patient. The risks, complications, benefits, and alternatives we re discussed and any questions were answered. Informed consent was obtained. The patient was placed s upine on the ultrasound table and prepped and draped in the usual sterile fashion. All elements of maximal barrier technique were utilized. Under ultrasound guidance, access into the right lower quadrant was obtained, via the paracentesis catheter system and direct ultrasound guidanc e. Approximately 3.5 liters of straw-colored fluid was removed. The patient was stable throughout the pr ocedure and remained stable upon discharge from Department of Radiology. IMPRESSION: Successful paracentesis under ultrasound guidance.
--- NOTE | 2022-06-21 12:51 | P.DS ---
Providers Date of admission: 06/20/22 16:55 Expected date of discharge: 06/21/22 Attending physician: Carleen Cunningham DO Consults: 06/20/22 16:53 Consult Physician Urgent Consulting Provider: Ryder José Consult Reason/Comments: Uterine cancer, anemia, vaginal bleeding Do you want consulting provider notified?: Yes 06/20/22 17:08 Consult to Palliative Care Routine Consulting Provider: Isela Farias Consult Reason/Comments: goals of care Do you want consulting provider notified?: Yes Primary care physician: Stated None Hospital Course: Symptomatic anemia secondary to vaginal bleeding due to metastatic ovarian cancer with malignant ascites Malignant ascites, decompensated Chronic kidney disease stage III, at baseline Hyperchloremic metabolic acidosis Hypertension, elevated upon arrival DM Diastolic CHF, compensated Gout HLD Patient is a 67-year-old female with stage IV uterine cancer with recurrent malignant ascites, diastolic CHF, hypertension, diabetes, and chronic kidney who was sent to the emergency department secondary to low hemoglobin. In the emergency room, patient is afebrile, 175/76, 98% on 2 L of nasal cannula, heart rate 67. Repeat blood work demonstrated a CBC showing hemoglobin of 5.1. Chemistry showed chloride of 114, CO2 of 18, be on a 51, creatinine of 1.46. Liver function tests showed calcium of 7.6, alkaline phosphatase of 139, total protein of 5.0, albumin of 2.5. UA showed cloudy urine with 2+ protein, moderate sediment, few bacteria, 3 hyaline casts. Patient was admitted to the ICU as a stepdown overflow, received 2 units of pack red blood cells with improvement of hemoglobin to 7.7. She also received Lasix in between both units. She subsequently underwent paracentesis with more than 2 L of fluid drawn. She returned back to her baseline clinical condition, and was subsequently discharged back to [facility] with palliative care. I spent 35 minutes coordinating this discharge, discharge date 06/21 Patient Condition at Discharge: Fair Plan - Discharge Summary Discharge Rx Participant: No New Discharge Prescriptions: Continue Acetaminophen Tab [Tylenol] 650 mg PO Q6HR PRN tab PRN Reason: Mild Pain Or Fever > 100.5 Furosemide [Lasix] 40 mg PO BID@0800,2000 Isosorbide Mononitrate ER [Imdur] 30 mg PO DAILY@0800 Calcium Carbonate/Vitamin D3 [[place] 250 mg-D3 3.12 mcg (125 Iu)] 2 tab PO BID@08,1999 Cholecalciferol [Vitamin D3 (125 Mcg = 5000 Iu)] 125 mcg PO DAILY@0800 Sodium Bicarbonate Tab 650 mg PO BID PRN PRN Reason: Gi Upset Docusate Sodium [Dok] 100 mg PO BID PRN PRN Reason: Constipation Lactose-Reduced Food [Ensure Plus] 237 ml PO TID@0800,1399,1999 allopurinoL [Zyloprim] 100 mg PO DAILY@0800 Ferrous Sulfate [Iron (65 MG Elemental)] 325 mg PO BID@08,1999 carvediloL [Coreg] 6.25 mg PO BID@0800,1700 Melatonin 3 mg PO HS@1999 HYDROcodone/APAP 5-325MG [[place] 5-325] 1 tab PO Q6H PRN PRN Reason: Pain Diphenox-Atrop 2.5-0.025 mg [Lomotil] 2 tab PO TID PRN PRN Reason: Diarrhea Letrozole [Femara] 2.5 mg PO DAILY@0800 hydrALAZINE HCL [Apresoline] 50 mg PO TID@0800,1399,1999 Discharge Medication List allopurinoL [Zyloprim] 100 mg PO DAILY@0800 12/16/20 [History] Ferrous Sulfate [Iron (65 MG Elemental)] 325 mg PO BID@08,199910/11/21 [History] Acetaminophen Tab [Tylenol] 650 mg PO Q6HR PRN tab 03/14/22 [Rx] Furosemide [Lasix] 40 mg PO BID@08,199904/11/22 [History] Isosorbide Mononitrate ER [Imdur] 30 mg PO DAILY@0800 04/11/22 [History] carvediloL [Coreg] 6.25 mg PO BID@0800,1700 04/11/22 [History] Calcium Carbonate/Vitamin D3 [[place] 250 mg-D3 3.12 mcg (125 Iu)] 2 tab PO BID@0800,199905/16/22 [History] Melatonin 3 mg PO HS@199905/16/22 [History] Cholecalciferol [Vitamin D3 (125 Mcg = 5000 Iu)] 125 mcg PO DAILY@0800 06/20/22 [History] Diphenox-Atrop 2.5-0.025 mg [Lomotil] 2 tab PO TID PRN 06/20/22 [History] Docusate Sodium [Dok] 100 mg PO BID PRN 06/20/22 [History] HYDROcodone/APAP 5-325MG [[place] 5-325] 1 tab PO Q6H PRN 06/20/22 [History] Lactose-Reduced Food [Ensure Plus] 237 ml PO TID@0800,1399,199906/20/22 [History] Letrozole [Femara] 2.5 mg PO DAILY@0800 06/20/22 [History] Sodium Bicarbonate Tab 650 mg PO BID PRN 06/20/22 [History] hydrALAZINE HCL [Apresoline] 50 mg PO TID@0800,1399,199906/20/22 [History] Follow up Appointment(s)/Referral(s): Paula Koehler, NPC [Nurse Practitioner] - 07/13/22 2:00 pm None,Stated [Primary Care Provider] - 1-2 days Patient Instructions/Handouts: Anemia (DC)
--- NOTE | 2022-06-21 14:00 | P.CONS ---
History of Present Illness - Reason for Consult Consult date: 06/21/22 Goals of care Requesting physician: Satish Hooks - Chief Complaint Fatigue - History of Present Illness The patient is a 67-year-old female with stage IV uterine cancer with recurrent malignant ascites, diastolic CHF, hypertension, diabetes, and chronic kidney disease. She has been coming back to the hospital on outpatient basis frequently for a paracentesis. She presented for a paracentesis on 06/20/22, they checked labs and her hemoglobin was 5.1. They did not do the paracentesis and send her to the ER for transfusion. The patient reports vaginal bleeding on a daily basis, some days heavier than others. Patient states she is fatigued. Patient also short of breath. Patient denies chest pain or palpitations. Patient states her baseline hemoglobin was around 8 but often she gets down lower and has come in for transfusions approximately every 2 weeks. Patient denies any recent fever or chills. Patient denies any headache. Review of Systems Constitutional: Reports as per HPI Past Medical History Past Medical History: Coronary Artery Disease (CAD), Cancer, Heart Failure, Diabetes Mellitus, Hyperlipidemia, Hypertension, Renal Disease Additional Past Medical History / Comment(s): anemia, pulmonary edema, gout, weakness, uterine Ca, ascites History of Any Multi-Drug Resistant Organisms: None Reported Past Surgical History: No Surgical Hx Reported Additional Past Surgical History / Comment(s): Vagninal screen, Past Anesthesia/Blood Transfusion Reactions: No Reported Reaction Past Psychological History: No Psychological Hx Reported, Depression Smoking Status: Never smoker Past Alcohol Use History: None Reported Past Drug Use History: None Reported - Past Family History Father Family Medical History: Myocardial Infarction ([place]) Additional Family Medical History / Comment(s): father of [place] at 58 years old Mother Family Medical History: No Reported History Additional Family Medical History / Comment(s): mother of old age at 95 years old Medications and Allergies Home Medications Medication Instructions Recorded Confirmed Type allopurinoL [Zyloprim] 100 mg PO DAILY@0800 12/16/20 06/20/22 History Ferrous Sulfate [Iron (65 MG 325 mg PO BID@0800,199910/11/21 06/20/22 History Elemental)] Acetaminophen Tab [Tylenol] 650 mg PO Q6HR PRN tab 03/14/22 06/20/22 Rx Furosemide [Lasix] 40 mg PO BID@0800,199904/11/22 06/20/22 History Isosorbide Mononitrate ER [Imdur] 30 mg PO DAILY@0800 04/11/22 06/20/22 History carvediloL [Coreg] 6.25 mg PO BID@0800,1700 04/11/22 06/20/22 History Calcium Carbonate/Vitamin D3 2 tab PO BID@08,199905/16/22 06/20/22 History [Oyster Shell 250 mg-D3 3.12 mcg (125 Iu)] Melatonin 3 mg PO HS@199905/16/22 06/20/22 History Cholecalciferol [Vitamin D3 (125 125 mcg PO DAILY@0800 06/20/22 06/20/22 History Mcg = 5000 Iu)] Diphenox-Atrop 2.5-0.025 mg 2 tab PO TID PRN 06/20/22 06/20/22 History [Lomotil] Docusate Sodium [Dok] 100 mg PO BID PRN 06/20/22 06/20/22 History HYDROcodone/APAP 5-325MG [Leiter 1 tab PO Q6H PRN 06/20/22 06/20/22 History 5-325] Lactose-Reduced Food [Ensure Plus] 237 ml PO TID@0800,1399,199906/20/22 06/20/22 History Letrozole [Femara] 2.5 mg PO DAILY@0800 06/20/22 06/20/22 History Sodium Bicarbonate Tab 650 mg PO BID PRN 06/20/22 06/20/22 History hydrALAZINE HCL [Apresoline] 50 mg PO TID@0800,1399,199906/20/22 06/20/22 History Allergies Allergy/AdvReac Type Severity Reaction Status Date / Time No Known Allergies Allergy Verified 06/20/22 17:13 Physical Exam Vitals: Vital Signs Temp Pulse Pulse Resp BP BP Pulse Ox 06/21/22 09:45 63 14 168/71 93 L 06/21/22 09:30 63 16 167/69 92 L 06/21/22 09:25 62 16 178/75 93 L 06/21/22 09:16 63 14 175/74 93 L 06/21/22 04:00 97.8 F 17 180/71 96 06/21/22 00:00 97.4 F L 17 189/75 98 06/20/22 23:40 97.4 F L 60 16 189/75 98 06/20/22 21:50 97.7 F 58 L 13 185/77 06/20/22 21:30 98.1 F 60 18 179/77 99 06/20/22 20:37 98.1 F 62 14 189/76 98 06/20/22 20:00 98.1 F 14 189/76 98 06/20/22 17:35 97.2 F L 63 18 189/73 97 06/20/22 17:34 98.1 F 14 179/77 06/20/22 17:15 97 F L 65 18 187/71 98 06/20/22 16:27 98.1 F 60 18 186/87 100 06/20/22 13:52 98 F 67 18 175/76 98 Intake and Output 06/20/22 06/21/22 06/21/22 22:59 06:59 14:59 Intake Total 310 1105 Output Total 600 Balance 310 505 Intake: Intake, IV Titration 150 Amount Sodium Chloride 0.9% 1, 150 000 ml @ 75 mls/hr IV . [id number] ONE Rx#:[id number] Oral 25 Blood Product 310 930 Rc As-1 Unit 310 [id number] Rc As-1 Unit 0 310 [id number] Output: Urine 600 Other: Voiding Method External Catheter External Catheter External Catheter # Voids 1 Weight 115 kg 115 kg General: Well developed, well nourished. No acute distress. Chronically ill appearing HEENT: Head is atraumatic, normocephalic. Sclera are clear. Mucus membranes moist. CV: Heart regular in rate and rhythm positive S1 and S2. Lungs: Diminished bases. Respirations even and nonlabored. On RA Abdomen/GI: Soft. + abdominal tenderness. : No suprapubic tenderness. External catheter in place draining clear, yellow urine. Musculoskeletal/ Extremities: LEIGH, no joint deformity or swelling. No gross atrophy. + generalized weakness Vascular:+ 2 lower extremity edema Skin: Pale, warm and dry Neurologic: Awake, alert and oriented times 3. CN II-XII grossly intact. No focal deficits. Psychiatric: Appropriate mood and affect. Results CBC & Chem 7: 06/21/22 03:46 06/21/22 03:46 Labs: Abnormal Lab Results - Last 24 Hours (Table) 06/20/22 06/20/22 06/20/22 Range/Units 14:42 15:05 15:09 RBC (3.80-5.40) m/uL Hgb (11.4-16.0) gm/dL Hct (34.0-46.0) % MCV (80.0-100.0) fL MCHC (31.0-37.0) g/dL RDW (11.5-15.5) % Lymphocytes # (1.0-4.8) k/uL Lymphocytes # (Manual) (1.0-4.8) k/uL Metamyelocytes # (Man) (0) k/uL APTT 19.8 L (22.0-30.0) sec Chloride (98-107) mmol/L Carbon Dioxide (22-30) mmol/L BUN (7-17) mg/dL Creatinine (0.52-1.04) mg/dL Glucose (74-99) mg/dL POC Glucose (mg/dL) (70-110) mg/dL Calcium (8.4-10.2) mg/dL Total Bilirubin (0.2-1.3) mg/dL Alkaline Phosphatase (38-126) U/L Total Protein (6.3-8.2) g/dL Albumin (3.5-5.0) g/dL Urine Appearance Cloudy H (Clear) Urine Protein 2+ H (Negative) Amorphous Sediment Moderate H (None) /hpf Urine Bacteria Few H (None) /hpf Hyaline Casts 3 H (0-2) /lpf Crossmatch See Detail 06/20/22 06/20/22 06/20/22 Range/Units 15:09 15:20 19:57 RBC 1.65 L (3.80-5.40) m/uL Hgb 5.1 L* (11.4-16.0) gm/dL Hct 16.5 L* (34.0-46.0) % MCV 100.4 H (80.0-100.0) fL MCHC (31.0-37.0) g/dL RDW 17.4 H (11.5-15.5) % Lymphocytes # (1.0-4.8) k/uL Lymphocytes # (Manual) 0.63 L (1.0-4.8) k/uL Metamyelocytes # (Man) 0.06 H (0) k/uL APTT (22.0-30.0) sec Chloride 114 H (98-107) mmol/L Carbon Dioxide 18 L (22-30) mmol/L BUN 51 H (7-17) mg/dL Creatinine 1.46 H (0.52-1.04) mg/dL Glucose 158 H (74-99) mg/dL POC Glucose (mg/dL) 179 H (70-110) mg/dL Calcium 7.6 L (8.4-10.2) mg/dL Total Bilirubin 0.1 L (0.2-1.3) mg/dL Alkaline Phosphatase 139 H (38-126) U/L Total Protein 5.0 L (6.3-8.2) g/dL Albumin 2.5 L (3.5-5.0) g/dL Urine Appearance (Clear) Urine Protein (Negative) Amorphous Sediment (None) /hpf Urine Bacteria (None) /hpf Hyaline Casts (0-2) /lpf Crossmatch 06/21/22 06/21/22 Range/Units 03:46 03:46 RBC 2.52 L (3.80-5.40) m/uL Hgb 7.7 L D (11.4-16.0) gm/dL Hct 25.0 L (34.0-46.0) % MCV (80.0-100.0) fL MCHC 30.7 L (31.0-37.0) g/dL RDW 18.0 H (11.5-15.5) % Lymphocytes # 0.6 L (1.0-4.8) k/uL Lymphocytes # (Manual) (1.0-4.8) k/uL Metamyelocytes # (Man) (0) k/uL APTT (22.0-30.0) sec Chloride 114 H (98-107) mmol/L Carbon Dioxide 20 L (22-30) mmol/L BUN 49 H (7-17) mg/dL Creatinine 1.55 H (0.52-1.04) mg/dL Glucose 126 H (74-99) mg/dL POC Glucose (mg/dL) (70-110) mg/dL Calcium 7.6 L (8.4-10.2) mg/dL Total Bilirubin (0.2-1.3) mg/dL Alkaline Phosphatase (38-126) U/L Total Protein (6.3-8.2) g/dL Albumin (3.5-5.0) g/dL Urine Appearance (Clear) Urine Protein (Negative) Amorphous Sediment (None) /hpf Urine Bacteria (None) /hpf Hyaline Casts (0-2) /lpf Crossmatch US - abdomen: report reviewed Assessment and Plan Assessment: Social * 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 * Marital status - Single * Children/grandchildren - No children * Residence - House * Who do you reside with - Self * ETOH - No * Tobacco - No * Illicit drugs - No Spiritual/Cultural * A spiritual person - No * Baptism - N/A Functional Assessment * Able to walk independently - Yes * Assistive devices - walker and wheelchair * Able to use the bathroom independently - yes * Continent - occasionally incontinent * Require assistance bathing- yes * Able to feed self - yes * Who prepares meals - assisted living * How many meals a day eaten - 1-2 * Able to clean house/do laundry - a little bit * Transportation - assisted living provides transportation * Able to shop - no * Who manages medications - patient * Who manages finances - patient Psychological/Emotional * Dementia present - no * Insight and judgment - intact * Depression - no * Suicidal thoughts - no * Good support system - yes, a nephew and close friends * Patients goals - prolonged survival and comfort * Frequent hospitalizations - yes * Desire to keep coming back to the hospital for treatment - unsure Symptoms * Pain - 7/10 lower abdominal pain, continue Dilaudid, Tylenol, and Leiter * Fatigue - chronic fatigue and weakness, continue iron infusions and blood transfusions * SOB - with activity * Insomnia - Occasionally, continue Melatonin * N/V - Occasional, continue Zofran prn * Anxiety - No * Depression - No * Confusion - No * Agitation - No * Hallucinations - No * Appetite/weight loss - Poor appetite, no recent weight loss. 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 Her friend, Guillermo, is at the bedside. The patient states she lives in [facility]. She has been receiving outpatient palliative care, home health care, and PT/OT. She no longer receives chemotherapy or radiation. She has begun a trial of a new hormonal medication, Femara. The patient stated that she was told she would know in approximately one month if this new medication was helping. She is being discharged today back to her assisted living today. She is realistic and will consider hospice if her condition does not improve. Hospice philosophies and services explained in detail. She stated that she knows she will need hospice services soon. Information was given to her about [facility] hospice as well as [facility] hospice. She stated she would know when she is ready and she is close. The patient states that she has her affairs in order. She has seen her erisa attorney and completed advanced directives and pointed a medical power of erisa attorney. Recommendations - return to [facility], PT/OT, and outpatient palliative care Advanced Directives - on file Code Status - DO NOT RESUSCITATE Thank you for this consultation Isela Farias [facility] [id number] Email: [email or web address] Time with Patient: Greater than 30
--- NOTE | 2022-06-21 16:36 | P.CONS ---
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 She was recently hospitalized from 05/18 through 05/22. She was hospitalized for acute anemia at that time. She had been on eliquis but had continued bleeding, this was stopped and an IVC filter was placed. Patient was discharged to [facility] on palliative care. Since discharge patient saw Dr. Иван José and was started on Femara on 06/16, denies any adverse side effects at this time. Patient reports vaginal bleeding every 4 to 5 days, and reports a "gushing" with clots. Pt c/o associated fatigue and exertional SOB, denies lightheadedness and and chest pain. Pt also reports poor appetite, denies N/V. Chronic lower extremity edema baseline. Since discharge she has been getting a transfusion every 2 weeks on an outpatient basis, PRN palliative paracentesis as well. Today she presented for paracentesis, hgb was 5.1. They did not do the paracentesis and sent her to the ER for transfusion. Pt received 2 units of PRBCs on 06/20, hgb today 7.7. Paracentesis performed today, 3.5L removed. Review of Systems 10 point ROS is neg except as stated in HPI Past Medical History Past Medical History: Coronary Artery Disease (CAD), Cancer, Heart Failure, Diabetes Mellitus, Hyperlipidemia, Hypertension, Renal Disease Additional Past Medical History / Comment(s): anemia, pulmonary edema, gout, weakness, uterine Ca, ascites History of Any Multi-Drug Resistant Organisms: None Reported Past Surgical History: No Surgical Hx Reported Additional Past Surgical History / Comment(s): Vagninal screen, Past Anesthesia/Blood Transfusion Reactions: No Reported Reaction Past Psychological History: No Psychological Hx Reported, Depression Smoking Status: Never smoker Past Alcohol Use History: None Reported Past Drug Use History: None Reported - Past Family History Father Family Medical History: Myocardial Infarction ([place]) Additional Family Medical History / Comment(s): father of [place] at 58 years old Mother Family Medical History: No Reported History Additional Family Medical History / Comment(s): mother of old age at 95 years old Medications and Allergies Home Medications Medication Instructions Recorded Confirmed Type allopurinoL [Zyloprim] 100 mg PO DAILY@0800 12/16/20 06/20/22 History Ferrous Sulfate [Iron (65 MG 325 mg PO BID@0800,199910/11/21 06/20/22 History Elemental)] Acetaminophen Tab [Tylenol] 650 mg PO Q6HR PRN tab 03/14/22 06/20/22 Rx Furosemide [Lasix] 40 mg PO BID@0800,199904/11/22 06/20/22 History Isosorbide Mononitrate ER [Imdur] 30 mg PO DAILY@0800 04/11/22 06/20/22 History carvediloL [Coreg] 6.25 mg PO BID@0800,1700 04/11/22 06/20/22 History Calcium Carbonate/Vitamin D3 2 tab PO BID@0800,199905/16/22 06/20/22 History [Oyster Shell 250 mg-D3 3.12 mcg (125 Iu)] Melatonin 3 mg PO HS@199905/16/22 06/20/22 History Cholecalciferol [Vitamin D3 (125 125 mcg PO DAILY@0800 06/20/22 06/20/22 History Mcg = 5000 Iu)] Diphenox-Atrop 2.5-0.025 mg 2 tab PO TID PRN 06/20/22 06/20/22 History [Lomotil] Docusate Sodium [Dok] 100 mg PO BID PRN 06/20/22 06/20/22 History HYDROcodone/APAP 5-325MG [Stephenson 1 tab PO Q6H PRN 06/20/22 06/20/22 History 5-325] Lactose-Reduced Food [Ensure Plus] 237 ml PO TID@0800,1399,199906/20/22 06/20/22 History Letrozole [Femara] 2.5 mg PO DAILY@0800 06/20/22 06/20/22 History Sodium Bicarbonate Tab 650 mg PO BID PRN 06/20/22 06/20/22 History hydrALAZINE HCL [Apresoline] 50 mg PO TID@0800,1400,199906/20/22 06/20/22 History Allergies Allergy/AdvReac Type Severity Reaction Status Date / Time No Known Allergies Allergy Verified 06/20/22 17:13 Physical Exam Vitals: Vital Signs Temp Pulse Resp BP BP Pulse Ox 06/21/22 04:00 97.8 F 17 180/71 96 06/21/22 00:00 97.4 F L 17 189/75 98 06/20/22 23:40 97.4 F L 60 16 189/75 98 06/20/22 21:50 97.7 F 58 L 13 185/77 06/20/22 21:30 98.1 F 60 18 179/77 99 06/20/22 20:37 98.1 F 62 14 189/76 98 06/20/22 20:00 98.1 F 14 189/76 98 06/20/22 17:35 97.2 F L 63 18 189/73 97 06/20/22 17:34 98.1 F 14 179/77 06/20/22 17:15 97 F L 65 18 187/71 98 06/20/22 16:27 98.1 F 60 18 186/87 100 06/20/22 13:52 98 F 67 18 175/76 98 Intake and Output 06/20/22 06/21/22 06/21/22 22:59 06:59 14:59 Intake Total 310 1105 Output Total 600 Balance 310 505 Intake: Intake, IV Titration 150 Amount Sodium Chloride 0.9% 1, 150 000 ml @ 75 mls/hr IV . [id number] ONE Rx#:[id number] Oral 25 Blood Product 310 930 Rc As-1 Unit 310 [id number] Rc As-1 Unit 0 310 [id number] Output: Urine 600 Other: Voiding Method External Catheter External Catheter Weight 115 kg 115 kg - Constitutional pt rubio drawn, muscle loss since see last month General appearance: cooperative, no acute distress, obese - EENT Eyes: anicteric sclerae, EOMI ENT: hearing grossly normal, normal oropharynx - Neck Neck: no lymphadenopathy, normal ROM - Respiratory Respiratory: right: CTA, left: rales - Cardiovascular Rhythm: regular Heart sounds: normal: S1, S2 Abnormal Heart Sounds: no systolic murmur, no diastolic murmur, no rub, no S3 Gallop, no S4 Gallop, no click, no other leg Peripheral Edema: bilateral: 2+, Pitting - Gastrointestinal General gastrointestinal: no absent bowel sounds, no decreased bowel sounds, distended, no hepatomegaly, no hyperactive bowel sounds, normal bowel sounds, no organomegaly, no rigid, no scaphoid, soft, no splenomegaly, tenderness, no umb ilical hernia, no ventral hernia - Integumentary dry skin on lwr ext Integumentary: pale - Neurologic Neurologic: CNII-XII intact - Musculoskeletal Musculoskeletal: generalized weakness, strength equal bilaterally - Psychiatric Psychiatric: A&O x's 3, appropriate affect, intact judgment & insight Results CBC & Chem 7: 06/21/22 03:46 06/21/22 03:46 Labs: Abnormal Lab Results - Last 24 Hours (Table) 06/20/22 06/20/22 06/20/22 Range/Units 14:42 15:05 15:09 RBC (3.80-5.40) m/uL Hgb (11.4-16.0) gm/dL Hct (34.0-46.0) % MCV (80.0-100.0) fL MCHC (31.0-37.0) g/dL RDW (11.5-15.5) % Lymphocytes # (1.0-4.8) k/uL Lymphocytes # (Manual) (1.0-4.8) k/uL Metamyelocytes # (Man) (0) k/uL APTT 19.8 L (22.0-30.0) sec Chloride (98-107) mmol/L Carbon Dioxide (22-30) mmol/L BUN (7-17) mg/dL Creatinine (0.52-1.04) mg/dL Glucose (74-99) mg/dL POC Glucose (mg/dL) (70-110) mg/dL Calcium (8.4-10.2) mg/dL Total Bilirubin (0.2-1.3) mg/dL Alkaline Phosphatase (38-126) U/L Total Protein (6.3-8.2) g/dL Albumin (3.5-5.0) g/dL Urine Appearance Cloudy H (Clear) Urine Protein 2+ H (Negative) Amorphous Sediment Moderate H (None) /hpf Urine Bacteria Few H (None) /hpf Hyaline Casts 3 H (0-2) /lpf Crossmatch See Detail 06/20/22 06/20/22 06/20/22 Range/Units 15:09 15:20 19:57 RBC 1.65 L (3.80-5.40) m/uL Hgb 5.1 L* (11.4-16.0) gm/dL Hct 16.5 L* (34.0-46.0) % MCV 100.4 H (80.0-100.0) fL MCHC (31.0-37.0) g/dL RDW 17.4 H (11.5-15.5) % Lymphocytes # (1.0-4.8) k/uL Lymphocytes # (Manual) 0.63 L (1.0-4.8) k/uL Metamyelocytes # (Man) 0.06 H (0) k/uL APTT (22.0-30.0) sec Chloride 114 H (98-107) mmol/L Carbon Dioxide 18 L (22-30) mmol/L BUN 51 H (7-17) mg/dL Creatinine 1.46 H (0.52-1.04) mg/dL Glucose 158 H (74-99) mg/dL POC Glucose (mg/dL) 179 H (70-110) mg/dL Calcium 7.6 L (8.4-10.2) mg/dL Total Bilirubin 0.1 L (0.2-1.3) mg/dL Alkaline Phosphatase 139 H (38-126) U/L Total Protein 5.0 L (6.3-8.2) g/dL Albumin 2.5 L (3.5-5.0) g/dL Urine Appearance (Clear) Urine Protein (Negative) Amorphous Sediment (None) /hpf Urine Bacteria (None) /hpf Hyaline Casts (0-2) /lpf Crossmatch 06/21/22 06/21/22 Range/Units 03:46 03:46 RBC 2.52 L (3.80-5.40) m/uL Hgb 7.7 L D (11.4-16.0) gm/dL Hct 25.0 L (34.0-46.0) % MCV (80.0-100.0) fL MCHC 30.7 L (31.0-37.0) g/dL RDW 18.0 H (11.5-15.5) % Lymphocytes # 0.6 L (1.0-4.8) k/uL Lymphocytes # (Manual) (1.0-4.8) k/uL Metamyelocytes # (Man) (0) k/uL APTT (22.0-30.0) sec Chloride 114 H (98-107) mmol/L Carbon Dioxide 20 L (22-30) mmol/L BUN 49 H (7-17) mg/dL Creatinine 1.55 H (0.52-1.04) mg/dL Glucose 126 H (74-99) mg/dL POC Glucose (mg/dL) (70-110) mg/dL Calcium 7.6 L (8.4-10.2) mg/dL Total Bilirubin (0.2-1.3) mg/dL Alkaline Phosphatase (38-126) U/L Total Protein (6.3-8.2) g/dL Albumin (3.5-5.0) g/dL Urine Appearance (Clear) Urine Protein (Negative) Amorphous Sediment (None) /hpf Urine Bacteria (None) /hpf Hyaline Casts (0-2) /lpf Crossmatch US - abdomen: report reviewed Assessment and Plan (1) Anemia Status: Acute Priority: High Code(s): D64.9 - ANEMIA, UNSPECIFIED SNOMED Code(s): 894030778 (2) Uterine cancer Status: Acute Priority: High Code(s): C55 - MALIGNANT NEOPLASM OF UTERUS, PART UNSPECIFIED SNOMED Code(s): 891040257 (3) Vaginal bleeding Status: Acute Priority: High Code(s): N93.9 - ABNORMAL UTERINE AND VAGINAL BLEEDING, UNSPECIFIED SNOMED Code(s): 442911728 (4) Ascites Status: Acute Priority: High Code(s): R18.8 - OTHER ASCITES SNOMED Code(s): 219701937 Plan: Pt received 2 units of PRBCs on 06/20, hgb today 7.7. Paracentesis performed today, 3.5L removed. Pt will continue on femara. Purpose is to see if can reduce severity of symptoms from malignancy as pt in not a candidate for chemo/immunotherapy at this time. Will consider IV iron therapy based on lab values and bleeding episodes in outpatient setting Will continue blood transfusion every 2 weeks, and prn paracentesis Referral placed to radiation Dr. Rose She will continue to follow with palliative care Will f/u in clinic on 07/13/22 Attests: I have seen and examined pt, performed H&P, developed impression and plan of care. Discussed with dictator, agree with documentation, dictated as a scribe.
== END 2022-06-21 13:30 | disposition home or self-care (01) ==
LOC: EC 13:49 → 3SCARD 16:55 → INTOOBSV 16:55 → 3SCARD 18:53 → 2SICU 19:55
PROVIDERS: ADMIT Internal Medicine; ATTEND Internal Medicine
DX: C54.1 Malignant neoplasm of endometrium (principal); C56.9 Malignant neoplasm of unspecified ovary; R18.0 Malignant ascites; M10.9 Gout, unspecified; J81.1 Chronic pulmonary edema; I13.0 Hypertensive heart and chronic kidney disease with heart failure and stage 1 through stage 4 chronic kidney disease, or unspecified chronic kidney disease; E11.22 Type 2 diabetes mellitus with diabetic chronic kidney disease; I25.10 Atherosclerotic heart disease of native coronary artery without angina pectoris; E78.5 Hyperlipidemia, unspecified; N18.30 Chronic kidney disease, stage 3 unspecified; E87.29 Other acidosis; E87.8 Other disorders of electrolyte and fluid balance, not elsewhere classified; G47.00 Insomnia, unspecified; I50.32 Chronic diastolic (congestive) heart failure; Z66 Do not resuscitate; Z79.811 Long term (current) use of aromatase inhibitors; Z82.49 Family history of ischemic heart disease and other diseases of the circulatory system; Z79.899 Other long term (current) drug therapy
CPT/HCPCS: 96376 ×3; 96361 ×2; 96365; 36430; 96375; 99291; 36415 ×2; 86900; 86901; 84439; 82747; 84481; 80053 ×2; 80048; 86304; 82607; 82728; 83540; 83550; 83615; 83735; 82947; 84443; 84484; 85025 ×2; 85610; 85045; 85730; 86850; 86920; 81001; 83010; 76705; 49083; G0378 ×3; P9016; J1940; J2405; J2916; J1170 ×2

== ENCOUNTER 2022-07-13 09:05 | Inpatient (IN) | payer BC, MEDICAID ==
--- NOTE | 2022-07-13 09:41 | ED ---
General Adult HPI - General Chief complaint: Recheck/Abnormal Lab/Rx Stated complaint: Recheck/Abn Labs Time Seen by Provider: 07/13/22 09:19 Source: patient, family, RN notes reviewed Mode of arrival: EMS Limitations: no limitations - History of Present Illness Initial comments: 67-year-old female history of metastatic uterine cancer who is had 4 previous paracenteses who is here because of increased abdominal girth and discomfort due to accumulated perineal fluid. She denies any fevers chills nausea vomiting sweats she has a history of anemia she believes her blood counts are low. She is currently in hospice. She is transferred here for evaluation and paracentesis. - Related Data Home Medications Medication Instructions Recorded Confirmed allopurinoL [Zyloprim] 100 mg PO DAILY@0800 12/16/20 07/13/22 Ferrous Sulfate [Iron (65 MG 325 mg PO BID@0800,199910/11/21 07/13/22 Elemental)] Furosemide [Lasix] 40 mg PO BID@0800,199904/11/22 07/13/22 Isosorbide Mononitrate ER [Imdur] 30 mg PO DAILY@0800 04/11/22 07/13/22 carvediloL [Coreg] 6.25 mg PO BID@0800,1700 04/11/22 07/13/22 Melatonin 3 mg PO HS@199905/16/22 07/13/22 Cholecalciferol [Vitamin D3 (125 125 mcg PO DAILY@0800 06/20/22 07/13/22 Mcg = 5000 Iu)] Diphenox-Atrop 2.5-0.025 mg 2 tab PO TID PRN 06/20/22 07/13/22 [Lomotil] Docusate Sodium [Dok] 100 mg PO BID PRN 06/20/22 07/13/22 Lactose-Reduced Food [Ensure Plus] 237 ml PO TID@0800,1399,199906/20/22 07/13/22 Letrozole [Femara] 2.5 mg PO DAILY@0800 06/20/22 07/13/22 Sodium Bicarbonate Tab 650 mg PO BID PRN 06/20/22 07/13/22 hydrALAZINE HCL [Apresoline] 50 mg PO QID@08,,, PRN 06/20/22 07/13/22 Calcium Carbonate-Vitamin D3 2 tab PO BID@0800,199907/13/22 07/13/22 Chewable 500mg/10mcg(400iu) HYDROcodone/APAP 10-325MG [[place] 1 tab PO QID@08,13,18,07/13/22 07/13/22 10-325] Hyoscyamine Sulfate [Hyoscyamine 0.125 mg SL Q4H PRN 07/13/22 07/13/22 Sulfate SL] LORazepam [Ativan] 0.5 mg PO Q4H PRN 07/13/22 07/13/22 Loperamide [Imodium] 2 mg PO QID PRN 07/13/22 07/13/22 Magnesium Hydroxide [Milk of 2,400 mg PO Q6H PRN 07/13/22 07/13/22 Magnesia] Morphine Sulfate [Morphine Sulfate 5 mg PO Q4H PRN 07/13/22 07/13/22 Oral Soln Concentrate] Ondansetron [Zofran] 4 mg PO Q4H PRN 07/13/22 07/13/22 bisacodyL 10 mg RECTAL DAILY PRN 07/13/22 07/13/22 Previous Rx's Medication Instructions Recorded Acetaminophen Tab [Tylenol] 650 mg PO Q6HR PRN tab 03/14/22 Allergies Allergy/AdvReac Type Severity Reaction Status Date / Time No Known Allergies Allergy Verified 07/13/22 09:12 Review of Systems ROS Statement: Those systems with pertinent positive or pertinent negative responses have been documented in the HPI. ROS Other: All systems not noted in ROS Statement are negative. Past Medical History Past Medical History: Coronary Artery Disease (CAD), Cancer, Heart Failure, Diabetes Mellitus, Hyperlipidemia, Hypertension, Renal Disease Additional Past Medical History / Comment(s): anemia, pulmonary edema, gout, weakness, uterine Ca, ascites History of Any Multi-Drug Resistant Organisms: None Reported Past Surgical History: No Surgical Hx Reported Additional Past Surgical History / Comment(s): Vagninal screen, Past Anesthesia/Blood Transfusion Reactions: No Reported Reaction Past Psychological History: No Psychological Hx Reported, Depression Smoking Status: Never smoker Past Alcohol Use History: None Reported Past Drug Use History: None Reported - Past Family History Father Family Medical History: Myocardial Infarction ([place]) Additional Family Medical History / Comment(s): father of [place] at 58 years old Mother Family Medical History: No Reported History Additional Family Medical History / Comment(s): mother of old age at 95 years old General Exam - General Exam Comments Initial Comments: This is a well-developed Limitations: no limitations General appearance: alert, in no apparent distress Eye exam: Present: normal appearance, PERRL, EOMI. Absent: scleral icterus, conjunctival injection, periorbital swelling ENT exam: Present: normal exam, mucous membranes moist Neck exam: Present: normal inspection. Absent: tenderness, meningismus, lymphadenopathy Respiratory exam: Present: normal lung sounds bilaterally. Absent: respiratory distress, wheezes, rales, rhonchi, stridor Cardiovascular Exam: Present: regular rate, normal rhythm, normal heart sounds. Absent: systolic murmur, diastolic murmur, rubs, gallop, clicks GI/Abdominal exam: Present: distended, other Extremities exam: Present: full ROM, normal capillary refill, other (Wraps on the lower extremities) Back exam: Present: full ROM Neurological exam: Present: alert, oriented X3, CN II-XII intact Psychiatric exam: Present: normal affect, normal mood Skin exam: Present: warm, dry, intact, pallor Course Vital Signs 07/13/22 07/13/22 09:07 11:20 Temperature 97.9 F Pulse Rate 63 Respiratory 18 18 Rate Blood Pressure 194/72 O2 Sat by Pulse 97 Oximetry Medical Decision Making - Medical Decision Making I did discuss findings with the patient she is agreed to be admitted to hospice and get a blood transfusion for anemia I did discuss this with Dr. Jimenez also with Dr. Rosario prior. Patient will be consult at 2 interventional radiology for paracentesis. Was pt. sent in by a medical professional or institution (, PA, BLANCHING MACHINE OPERATOR, urgent care, hospital, or detention...) When possible be specific @ Hospice -[] Did you speak to anyone other than the patient for history (EMS, parent, family, police, friend...)? What history was obtained from this source @ Hospice nurse-[] Did you review nursing and triage notes (agree or disagree)? Why? @ Yes and agree-[I reviewed and agree with nursing and triage notes] Were old charts reviewed (outside hosp., previous admission, EMS record, old EKG, old radiological studies, urgent care reports/EKG's, detention records)? Report findings @ -[No old charts were reviewed] Differential Diagnosis (chest pain, altered mental status, abdominal pain women, abdominal pain men, vaginal bleeding, weakness, fever, dyspnea, syncope, headache, dizziness, GI bleed, back pain, seizure, CVA, palpatations, mental health)? @ Chronic anemia, metastatic renal cell carcinoma-] EKG interpreted by me (3pts min.). @ -[As above] X-rays interpreted by me (1pt min.). @ -[None done] CT interpreted by me (1pt min.). @ -[None done] U/S interpreted by me (1pt. min.). @ -[None done] What testing was considered but not performed or refused? (CT, X-rays, U/S, labs)? Why? @ -[None] What meds were considered but not given or refused? Why? @ -[None] Did you discuss the management of the patient with other professionals (professionals i.e. , PA, BLANCHING MACHINE OPERATOR, lab, RT, psych nurse, social service assistant, batch unloader, teacher, senior major gifts officer, upper caser)? Give summary @ Initially with Dr. Fuentes and Dr. Rosario and later with Dr. Jimenez-[] Was smoking cessation discussed for >3mins.? @ -[No] Was critical care preformed (if so, how long)? @ -[No] Were there social determinants of health that impacted care today? How? (Homelessness, low income, unemployed, alcoholism, drug addiction, tr ansportation, low edu. Level, literacy, decrease access to med. care, retirement, rehab)? @ -[No] Was there de-escalation of care discussed even if they declined (Discuss DNR or withdrawal of care, Hospice)? DNR status @ -[No] What co-morbidities impacted this encounter? (DM, HTN, Smoking, COPD, CAD, Cancer, CVA, ARF, Chemo, Hep., AIDS, mental health diagnosis, sleep apnea, morbid obesity)? @ -[None] Was patient admitted / discharged? Hospital course, mention meds given and route, prescriptions, significant lab abnormalities, going to OR and other pertinent info. @ Patient was admitted to hospice-[hospital course] Undiagnosed new problem with uncertain prognosis? @ -[No] Drug Therapy requiring intensive monitoring for toxicity (Heparin, Nitro, Insulin, Cardizem)? @ -[No] Were any procedures done? @ -[No] Diagnosis/symptom? @ Ascites, chronic anemia, metastatic renal cell carcinoma -[default] Acute, or Chronic, or Acute on Chronic? @ Acute on chronic-[default] Uncomplicated (without systemic symptoms) or Complicated (systemic symptoms)? @ -[default] Side effects of treatment? @ -[No] Exacerbation, Progression, or Severe Exacerbation? @ -[No] Poses a threat to life or bodily function? How? (Chest pain, [place], [place], pneumonia, PE, COPD, DKA, ARF, appy, cholecystitis, CVA, Diverticulitis, Homicidal, Suicidal, threat to staff... and all critical care pts) @ -[No] - Lab Data Result diagrams: 07/13/22 10:05 07/13/22 10:05 Lab Results 07/13/22 07/13/22 07/13/22 Range/Units 10:05 10:05 10:05 WBC 6.3 (3.8-10.6) k/uL RBC 2.03 L (3.80-5.40) m/uL Hgb 5.9 L* (11.4-16.0) gm/dL Hct 20.3 L (34.0-46.0) % MCV 99.8 (80.0-100.0) fL MCH 28.9 (25.0-35.0) pg MCHC 29.0 L (31.0-37.0) g/dL RDW 19.0 H (11.5-15.5) % Plt Count 255 (150-450) k/uL MPV 8.5 Neutrophils % 83 % Lymphocytes % 8 % Monocytes % 4 % Eosinophils % 3 % Basophils % 1 % Neutrophils # 5.3 (1.3-7.7) k/uL Lymphocytes # 0.5 L (1.0-4.8) k/uL Monocytes # 0.3 (0-1.0) k/uL Eosinophils # 0.2 (0-0.7) k/uL Basophils # 0.0 (0-0.2) k/uL Hypochromasia Marked Poikilocytosis Slight Anisocytosis Slight Macrocytosis Moderate PT 10.3 (9.0-12.0) sec INR 1.0 (<1.2) Sodium 141 (137-145) mmol/L Potassium 5.0 (3.5-5.1) mmol/L Chloride 114 H (98-107) mmol/L Carbon Dioxide 22 (22-30) mmol/L Anion Gap 5 mmol/L BUN 66 H (7-17) mg/dL Creatinine 1.58 H (0.52-1.04) mg/dL Est GFR (CKD-EPI)AfAm 39 (>60 ml/min/1.73 sqM) Est GFR (CKD-EPI)NonAf 34 (>60 ml/min/1.73 sqM) Glucose 160 H (74-99) mg/dL Calcium 7.8 L (8.4-10.2) mg/dL Total Bilirubin 0.2 (0.2-1.3) mg/dL AST 17 (14-36) U/L ALT 12 (4-34) U/L Alkaline Phosphatase 128 H (38-126) U/L Total Protein 5.2 L (6.3-8.2) g/dL Albumin 2.6 L (3.5-5.0) g/dL Blood Type Blood Type Recheck Bld Type Recheck Status Antibody Screen Crossmatch Spec Expiration Date 07/13/22 Range/Units 10:05 WBC (3.8-10.6) k/uL RBC (3.80-5.40) m/uL Hgb (11.4-16.0) gm/dL Hct (34.0-46.0) % MCV (80.0-100.0) fL MCH (25.0-35.0) pg MCHC (31.0-37.0) g/dL RDW (11.5-15.5) % Plt Count (150-450) k/uL MPV Neutrophils % % Lymphocytes % % Monocytes % % Eosinophils % % Basophils % % Neutrophils # (1.3-7.7) k/uL Lymphocytes # (1.0-4.8) k/uL Monocytes # (0-1.0) k/uL Eosinophils # (0-0.7) k/uL Basophils # (0-0.2) k/uL Hypochromasia Poikilocytosis Anisocytosis Macrocytosis PT (9.0-12.0) sec INR (<1.2) Sodium (137-145) mmol/L Potassium (3.5-5.1) mmol/L Chloride (98-107) mmol/L Carbon Dioxide (22-30) mmol/L Anion Gap mmol/L BUN (7-17) mg/dL Creatinine (0.52-1.04) mg/dL Est GFR (CKD-EPI)AfAm (>60 ml/min/1.73 sqM) Est GFR (CKD-EPI)NonAf (>60 ml/min/1.73 sqM) Glucose (74-99) mg/dL Calcium (8.4-10.2) mg/dL Total Bilirubin (0.2-1.3) mg/dL AST (14-36) U/L ALT (4-34) U/L Alkaline Phosphatase (38-126) U/L Total Protein (6.3-8.2) g/dL Albumin (3.5-5.0) g/dL Blood Type A Positive Blood Type Recheck A Pos Bld Type Recheck Status No Antibody Screen NEGATIVE Crossmatch See Detail Spec Expiration Date 07/16/20222304 Disposition Clinical Impression: Ascites, Anemia, Metastatic renal cell carcinoma Disposition: ADMITTED IP TO THIS [facility] Condition: Fair Referrals: Pierce Montes NPC [Primary Care Provider] - 1-2 days Decision Date: 07/13/22 Decision Time: 11:34
[2022-07-13 10:29] LABS: Albumin 2.6 g/dL (3.5-5.0); Anisocytosis Slight; Basophils % (A) 1 %; Calcium 7.8 mg/dL (8.4-10.2); Eosinophils # (A) 0.2 k/uL (0-0.7); Eosinophils % (A) 3 %; HCT 20.3 % (34.0-46.0); Hypochromasia Marked; Lymphocytes # (A) 0.5 k/uL (1.0-4.8); Lymphocytes % (A) 8 %; MCH 28.9 pg (25.0-35.0); MCV 99.8 fL (80.0-100.0); Macrocytosis Moderate; Mean Platelet Volume 8.5; Monocytes # (A) 0.3 k/uL (0-1.0); Monocytes % (A) 4 %; Neutrophils # (A) 5.3 k/uL (1.3-7.7); Neutrophils % (A) 83 %; Platelet Count 255 k/uL (150-450); Poikilocytosis Slight; RBC 2.03 m/uL (3.80-5.40); Total Bilirubin 0.2 mg/dL (0.2-1.3); Total Protein 5.2 g/dL (6.3-8.2); WBC 6.3 k/uL (3.8-10.6)
[2022-07-13 10:32] LABS: HGB 5.9 gm/dL (11.4-16.0); Prothrombin Time 10.3 sec (9.0-12.0)
[2022-07-13] MEDS ORDERED: NALOXONE 0.4 MG/ML 1 ML VIAL IV PRN (11:35)
[2022-07-13] MEDS ORDERED: SODIUM CHLORIDE 0.9% 1,000 ML IV SCH (11:45)
--- NOTE | 2022-07-13 14:31 | P.HPIM ---
History of Present Illness H&P Date: 07/13/22 Chief Complaint: abd fullness, anemia Patient is a 67-year-old female with stage IV uterine cancer with recurrent malignant ascites, diastolic CHF, hypertension, diabetes, and chronic kidney who was sent to the emergency department secondary to low hemoglobin and tense abdom en. Patient is a hospice patient who was scheduled for paracentesis for recurrent ascites but this was not completed due to patient having low hgb. Therefore transferred to ER for transfusion and paracentesis. Patient's only complaints are pain and fatigue. pain is abdominal and generalized, similar in nature to her previous episodes of tense ascites. She denies fevers, chills, nausea, vomiting, chest pain, palpitations, syncope, presyncope, cough, dyspnea, dysuria, dyschezia, numbness/weakness of extremities. In the emergency room, patient was afebrile, 155/70, heart rate 60, 93% on room air. CBC shows a hemoglobin of 5.9, otherwise unremarkable. Chemistries show a chloride of 114, BUN of 66, creatinine 1.6. Chemistries show an alkaline phosphatase of 128, total protein of 5.2, albumin of 2.6. Case was discussed with the emergency room physician who requested observation hospice admission for transfusion as well as paracentesis prior to discharge. All Systems reviewed and pertinent positives and negatives noted in HPI, all other symptoms are negative Gen: in no apparent distress, resting comfortably in bed Eyes: PERRL, no scleral injection or icterus HENT: normocephalic, atraumatic, good hearing acuity, moist mucous membranes Neck: no tracheal deviation, full range of motion Resp: good air exchange, breathing comfortably with no accessory muscle use, no tactile fremitus CVS: good distal perfusion x 4, 2+ pitting edema GI: Tense, diffuse tenderness to palpation, ascites is present : no suprapubic tenderness, no CVAT, gonsalez catheter not present MSK: no clubbing, no cyanosis, no noted contractures of extremities Skin: no noted rashes, petechiae; temperature of skin is appropriate Neuro: moving all extremities without signs of weakness, CN II-XII intact Psych: cooperative, euthymic mood, insight and judgment intact Labs and imaging as above Assessment/plan: Recurrent malignant ascites Diastolic heart failure Stage IV uterine cancer Acute anemia -Admit to inpatient hospice -Hospice to continue to follow -Transfuse patient 1 unit of blood -IR consult for paracentesis -Monitor CBC in the morning Hypertension Diabetes CK D, stage III -Home medications reviewed and reconciled Patient is DO NOT RESUSCITATE/DO NOT INTUBATE Past Medical History Past Medical History: Coronary Artery Disease (CAD), Cancer, Heart Failure, Diabetes Mellitus, Hyperlipidemia, Hypertension, Renal Disease Additional Past Medical History / Comment(s): anemia, pulmonary edema, gout, weakness, uterine Ca, ascites History of Any Multi-Drug Resistant Organisms: None Reported Past Surgical History: No Surgical Hx Reported Additional Past Surgical History / Comment(s): Vagninal screen, Past Anesthesia/Blood Transfusion Reactions: No Reported Reaction Past Psychological History: No Psychological Hx Reported, Depression Smoking Status: Never smoker Past Alcohol Use History: None Reported Past Drug Use History: None Reported - Past Family History Father Family Medical History: Myocardial Infarction ([place]) Additional Family Medical History / Comment(s): father of [place] at 58 years old Mother Family Medical History: No Reported History Additional Family Medical History / Comment(s): mother of old age at 95 years old Medications and Allergies Home Medications Medication Instructions Recorded Confirmed Type allopurinoL [Zyloprim] 100 mg PO DAILY@0800 12/16/20 07/13/22 History Ferrous Sulfate [Iron (65 MG 325 mg PO BID@0800,199910/11/21 07/13/22 History Elemental)] Acetaminophen Tab [Tylenol] 650 mg PO Q6HR PRN tab 03/14/22 07/13/22 Rx Furosemide [Lasix] 40 mg PO BID@0800,199904/11/22 07/13/22 History Isosorbide Mononitrate ER [Imdur] 30 mg PO DAILY@0800 04/11/22 07/13/22 History carvediloL [Coreg] 6.25 mg PO BID@0800,1700 04/11/22 07/13/22 History Melatonin 3 mg PO HS@199905/16/22 07/13/22 History Cholecalciferol [Vitamin D3 (125 125 mcg PO DAILY@0800 06/20/22 07/13/22 History Mcg = 5000 Iu)] Diphenox-Atrop 2.5-0.025 mg 2 tab PO TID PRN 06/20/22 07/13/22 History [Lomotil] Docusate Sodium [Dok] 100 mg PO BID PRN 06/20/22 07/13/22 History Lactose-Reduced Food [Ensure Plus] 237 ml PO TID@0800,1399,199906/20/22 07/13/22 History Letrozole [Femara] 2.5 mg PO DAILY@0800 06/20/22 07/13/22 History Sodium Bicarbonate Tab 650 mg PO BID PRN 06/20/22 07/13/22 History hydrALAZINE HCL [Apresoline] 50 mg PO QID@,,, PRN 06/20/22 07/13/22 History Calcium Carbonate-Vitamin D3 2 tab PO BID@0800,199907/13/22 07/13/22 History Chewable 500mg/10mcg(400iu) HYDROcodone/APAP 10-325MG [[place] 1 tab PO QID@,,,07/13/22 07/13/22 History 10-325] Hyoscyamine Sulfate [Hyoscyamine 0.125 mg SL Q4H PRN 07/13/22 07/13/22 History Sulfate SL] LORazepam [Ativan] 0.5 mg PO Q4H PRN 07/13/22 07/13/22 History Loperamide [Imodium] 2 mg PO QID PRN 07/13/22 07/13/22 History Magnesium Hydroxide [Milk of 2,400 mg PO Q6H PRN 07/13/22 07/13/22 History Magnesia] Morphine Sulfate [Morphine Sulfate 5 mg PO Q4H PRN 07/13/22 07/13/22 History Oral Soln Concentrate] Ondansetron [Zofran] 4 mg PO Q4H PRN 07/13/22 07/13/22 History bisacodyL 10 mg RECTAL DAILY PRN 07/13/22 07/13/22 History Allergies Allergy/AdvReac Type Severity Reaction Status Date / Time No Known Allergies Allergy Verified 07/13/22 09:12 Physical Exam Osteopathic Statement: *. No significant issues noted on an osteopathic structural exam other than those noted in the History and Physical/Consult. Vitals: Vital Signs Temp Pulse Resp BP Pulse Ox 07/13/22 14:15 97.7 F 62 18 181/77 93 L 07/13/22 14:00 63 17 182/79 95 07/13/22 13:45 64 18 135/59 94 L 07/13/22 13:30 63 17 154/74 93 L 07/13/22 13:15 97.7 F 60 17 155/70 93 L 07/13/22 13:02 60 16 156/66 93 L 07/13/22 12:47 98.2 F 61 17 154/62 93 L 07/13/22 12:27 97.8 F 63 17 180/77 94 L 07/13/22 12:18 98.0 F 65 16 151/71 95 07/13/22 12:15 98.1 F 61 17 155/73 96 07/13/22 11:20 18 07/13/22 09:07 97.9 F 63 18 194/72 97 Intake and Output 07/12/22 07/13/22 07/13/22 22:59 06:59 14:59 Intake Total 0 Balance 0 Intake: Blood Product 0 Unit 0 Other: Weight 95.254 kg Results CBC & Chem 7: 07/13/22 10:05 07/13/22 10:05 Labs: Abnormal Lab Results - Last 24 Hours (Table) 07/13/22 07/13/22 07/13/22 Range/Units 10:05 10:05 10:05 RBC 2.03 L (3.80-5.40) m/uL Hgb 5.9 L* (11.4-16.0) gm/dL Hct 20.3 L (34.0-46.0) % MCHC 29.0 L (31.0-37.0) g/dL RDW 19.0 H (11.5-15.5) % Lymphocytes # 0.5 L (1.0-4.8) k/uL Chloride 114 H (98-107) mmol/L BUN 66 H (7-17) mg/dL Creatinine 1.58 H (0.52-1.04) mg/dL Glucose 160 H (74-99) mg/dL Calcium 7.8 L (8.4-10.2) mg/dL Alkaline Phosphatase 128 H (38-126) U/L Total Protein 5.2 L (6.3-8.2) g/dL Albumin 2.6 L (3.5-5.0) g/dL Crossmatch See Detail
[2022-07-13 15:16] VITALS: RESP 16; TEMP 97.3
[2022-07-13] MEDS ORDERED: DOCUSATE 100 MG CAP PO PRN (15:29)
[2022-07-13] MEDS ORDERED: HYDROcodone/APAP 10-325MG 1 EACH TAB PO PRN (15:31)
[2022-07-13] MEDS ORDERED: hydrALAZINE HCL 50 MG TAB PO SCH (16:00)
[2022-07-13] MEDS ORDERED: FUROSEMIDE 40 MG TAB PO SCH (16:00)
[2022-07-13 16:46] VITALS: PULSE 70
[2022-07-13] MEDS ORDERED: carvediloL 6.25 MG TAB PO SCH (17:30)
[2022-07-13] MEDS ORDERED: FERROUS SULFATE 325 MG TAB PO SCH (17:30)
--- NOTE | 2022-07-13 18:34 | P.DS ---
Providers Date of admission: 07/13/22 11:41 Expected date of discharge: 07/13/22 Attending physician: Estefania Jimenez MD Consults: 07/13/22 11:35 Consult Physician Routine Consulting Provider: Quirino Pena Consult Reason/Comments: Ultrasound-guided paracentesis Do you want consulting provider notified?: Yes Primary care physician: SCAR Rivera Hospital Course: Recurrent malignant ascites Diastolic heart failure Stage IV uterine cancer Acute anemia Hypertension Diabetes CK D, stage III Patient is a 67-year-old female with stage IV uterine cancer with recurrent ma lignant ascites, diastolic CHF, hypertension, diabetes, and chronic kidney who was sent to the emergency department secondary to low hemoglobin and tense abdomen. In the emergency room, patient was afebrile, 155/70, heart rate 60, 93% on room air. CBC shows a hemoglobin of 5.9, otherwise unremarkable. Chemistries show a chloride of 114, BUN of 66, creatinine 1.6. Chemistries show an alkaline phosphatase of 128, total protein of 5.2, albumin of 2.6. Case was discussed with the emergency room physician who requested observation hospice admission for transfusion as well as paracentesis prior to discharge. Patient rec'd paracentesis and 2U PRBC blood transfusion and was discharged home with hospice. See same day physical Patient Condition at Discharge: Fair Plan - Discharge Summary New Discharge Prescriptions: Continue Acetaminophen Tab [Tylenol] 650 mg PO Q6HR PRN tab PRN Reason: Mild Pain Or Fever > 100.5 Furosemide [Lasix] 40 mg PO BID@0800,1999 Isosorbide Mononitrate ER [Imdur] 30 mg PO DAILY@0800 Cholecalciferol [Vitamin D3 (125 Mcg = 5000 Iu)] 125 mcg PO DAILY@0800 Sodium Bicarbonate Tab 650 mg PO BID PRN PRN Reason: Gi Upset Docusate Sodium [Dok] 100 mg PO BID PRN PRN Reason: Constipation Lactose-Reduced Food [Ensure Plus] 237 ml PO TID@0800,1399,1999 Ondansetron [Zofran] 4 mg PO Q4H PRN PRN Reason: Nausea And Vomiting Loperamide [Imodium] 2 mg PO QID PRN PRN Reason: Diarrhea Calcium Carbonate-Vitamin D3 Chewable 500mg/10mcg(400iu) 2 tab PO BID@0800,1999 allopurinoL [Zyloprim] 100 mg PO DAILY@0800 Ferrous Sulfate [Iron (65 MG Elemental)] 325 mg PO BID@799,1999 carvediloL [Coreg] 6.25 mg PO BID@0800,1700 Melatonin 3 mg PO HS@1999 Diphenox-Atrop 2.5-0.025 mg [Lomotil] 2 tab PO TID PRN PRN Reason: Diarrhea Letrozole [Femara] 2.5 mg PO DAILY@0800 hydrALAZINE HCL [Apresoline] 50 mg PO QID@,,, PRN PRN Reason: hold for sbp <120 Morphine Sulfate [Morphine Sulfate Oral Soln Concentrate] 5 mg PO Q4H PRN PRN Reason: Pain or shortness of breath Magnesium Hydroxide [Milk of Magnesia] 2,400 mg PO Q6H PRN PRN Reason: Constipation LORazepam [Ativan] 0.5 mg PO Q4H PRN PRN Reason: Anxiety Hyoscyamine Sulfate [Hyoscyamine Sulfate SL] 0.125 mg SL Q4H PRN PRN Reason: Secretions bisacodyL 10 mg RECTAL DAILY PRN PRN Reason: Constipation HYDROcodone/APAP 10-325MG [[place] 10-325] 1 tab PO QID@,,, Discharge Medication List allopurinoL [Zyloprim] 100 mg PO DAILY@0800 12/16/20 [History] Ferrous Sulfate [Iron (65 MG Elemental)] 325 mg PO BID@08,199910/11/21 [History] Acetaminophen Tab [Tylenol] 650 mg PO Q6HR PRN tab 03/14/22 [Rx] Furosemide [Lasix] 40 mg PO BID@0800,199904/11/22 [History] Isosorbide Mononitrate ER [Imdur] 30 mg PO DAILY@0800 04/11/22 [History] carvediloL [Coreg] 6.25 mg PO BID@0800,1700 04/11/22 [History] Melatonin 3 mg PO HS@199905/16/22 [History] Cholecalciferol [Vitamin D3 (125 Mcg = 5000 Iu)] 125 mcg PO DAILY@0800 06/20/22 [History] Diphenox-Atrop 2.5-0.025 mg [Lomotil] 2 tab PO TID PRN 06/20/22 [History] Docusate Sodium [Dok] 100 mg PO BID PRN 06/20/22 [History] Lactose-Reduced Food [Ensure Plus] 237 ml PO TID@0800,1399,199906/20/22 [History] Letrozole [Femara] 2.5 mg PO DAILY@0800 06/20/22 [History] Sodium Bicarbonate Tab 650 mg PO BID PRN 06/20/22 [History] hydrALAZINE HCL [Apresoline] 50 mg PO QID@,,, PRN 06/20/22 [History] Calcium Carbonate-Vitamin D3 Chewable 500mg/10mcg(400iu) 2 tab PO BID@0800,199907/13/22 [History] HYDROcodone/APAP 10-325MG [[place] 10-325] 1 tab PO QID@,,,07/13/22 [History] Hyoscyamine Sulfate [Hyoscyamine Sulfate SL] 0.125 mg SL Q4H PRN 07/13/22 [History] LORazepam [Ativan] 0.5 mg PO Q4H PRN 07/13/22 [History] Loperamide [Imodium] 2 mg PO QID PRN 07/13/22 [History] Magnesium Hydroxide [Milk of Magnesia] 2,400 mg PO Q6H PRN 07/13/22 [History] Morphine Sulfate [Morphine Sulfate Oral Soln Concentrate] 5 mg PO Q4H PRN 07/13/22 [History] Ondansetron [Zofran] 4 mg PO Q4H PRN 07/13/22 [History] bisacodyL 10 mg RECTAL DAILY PRN 07/13/22 [History] Follow up Appointment(s)/Referral(s): Pierce Montes NPC [Primary Care Provider] - 1-2 days Patient Instructions/Handouts: Ascites (DC)
[2022-07-13 18:49] VITALS: BP 180/76
[2022-07-13] MEDS ORDERED: MELATONIN 3 MG TABLET PO SCH (21:00)
[2022-07-14] MEDS ORDERED: allopurinoL 100 MG TAB PO SCH (09:00)
[2022-07-14] MEDS ORDERED: LETROZOLE 2.5 MG TAB PO SCH (09:00)
[2022-07-14] MEDS ORDERED: ISOSORBIDE MONONITRATE ER 30 MG TAB.ER.24H PO SCH (09:00)
--- NOTE | 2022-07-14 09:37 | US ---
Ultrasound-guided paracentesis. DATE OF EXAM: 07/13/2022 CLINICAL HISTORY: Ascites The procedure was discussed with the patient. The risks, complications, benefits, and alternatives we re discussed and any questions were answered. Informed consent was obtained. The patient was placed s upine on the ultrasound table and prepped and draped in the usual sterile fashion. All elements of maximal barrier technique were utilized. Under ultrasound guidance, access into the left lower quadrant was obtained, via the paracentesis catheter system and direct ultrasound guidance . Approximately 2.6 liters of straw-colored fluid was removed. The patient was stable throughout the pr ocedure and remained stable upon discharge from Department of Radiology. IMPRESSION: Successful paracentesis under ultrasound guidance.
== END 2022-07-13 20:46 | disposition still patient (30) | DRG 755 ==
LOC: EC 09:05 → 5NMEDONC 11:41
PROVIDERS: ADMIT Internal Medicine; ATTEND Internal Medicine
PROC: 30233N1 Transfusion of Nonautologous Red Blood Cells into Peripheral Vein, Percutaneous Approach (ICD-10-PCS; principal; 2022-07-13)
PROC: 0W9G3ZZ Drainage of Peritoneal Cavity, Percutaneous Approach (ICD-10-PCS; 2022-07-13)
DX: C55 Malignant neoplasm of uterus, part unspecified (principal); C79.00 Secondary malignant neoplasm of unspecified kidney and renal pelvis; R18.0 Malignant ascites; I13.0 Hypertensive heart and chronic kidney disease with heart failure and stage 1 through stage 4 chronic kidney disease, or unspecified chronic kidney disease; I50.30 Unspecified diastolic (congestive) heart failure; E11.22 Type 2 diabetes mellitus with diabetic chronic kidney disease; E78.5 Hyperlipidemia, unspecified; I25.10 Atherosclerotic heart disease of native coronary artery without angina pectoris; D63.0 Anemia in neoplastic disease; N18.30 Chronic kidney disease, stage 3 unspecified; Z66 Do not resuscitate; Z51.5 Encounter for palliative care; Z79.899 Other long term (current) drug therapy; Z79.811 Long term (current) use of aromatase inhibitors; Z79.891 Long term (current) use of opiate analgesic
CPT/HCPCS: 36415; 36430; 49083; 80053; 85025; 85610; 86850; 86900; 86901; 86920; 96360; 99284